=== PATIENT | female | born 1955 | race Caucasian/White ===

== ENCOUNTER → 2017-03-05 | Outpatient (CLI) | payer OTHER ==
[~2017-03-05] MED LIST: ALPR-411 PO; ASPI81TA28 PO; ATR25 PO; BUPRTAB PO; DIPHTAB PO; ESCI1TAB10 PO; INSDGI SC; KLN5 PO; LEVO112T4 PO; LISI-461 PO; LXP20 PO; METO-157 PO; NICO14DI5 TD; NVLG SC; NVLGI SC; OXYC-57 PO; PRVC/20 PO; PXL20 PO; SIMV-151 OG; WLLSR/200 PO; WLLXL300 PO
[2017-03-05 13:50] LABS: ALT/SGPT 25 U/L (12-78); AMYLASE 27 U/L (25-115); AST/SGOT 14 U/L (15-37); BLOOD UREA NITROGEN 11 mg/dl (7-18); BUN/CREATININE RATIO 11.2 (10-20); CALCIUM 9.4 mg/dl (8.5-10.1); CARBON DIOXIDE 28 mmol/L (21-32); CHLORIDE 103 mmol/L (98-107); CREATININE 0.94 mg/dl (0.60-1.20); GLUCOSE 271 mg/dl (70-99); POTASSIUM 4.4 mmol/L (3.5-5.1); SODIUM 135 mmol/L (136-145)
[2017-03-05 13:54] LABS: ALB/GLOB RATIO 1.1 (0.9-2); ALKALINE PHOSPHATASE 85 U/L (45-117); C-REACTIVE PROTEIN 0.74 mg/dl (0-0.29)
[2017-03-10 01:27] LABS: IGA SERUM 87 mg/dL (81-463); TIS TRANS IGA 1 U/mL (<4)
== END | disposition home or self-care (01) ==
LOC: C.LAB 12:47
PROVIDERS: ATTEND Physician Assistant
DX: R10.9 Unspecified abdominal pain (principal)

== ENCOUNTER → 2017-03-11 | Outpatient (CLI) | payer OTHER ==
[~2017-03-11] MED LIST changes: +OPTIRAY 320 IV PRN
--- NOTE | 2017-03-12 06:45 | DIAGNOSTIC IMAGING REPORT ---
CT ABD/PELVIS IV AND ORAL CONT CLINICAL HISTORY: R10.9 Abdominal [id number] COMPARISON STUDY: 02/01/2015 TECHNIQUE: Following the IV administration of 94 mL of Optiray-320, CT scan of the abdomen and pelvis was performed from the lung bases to the proximal femurs. Images are reviewed in the axial, sagittal, and coronal planes. IV contrast was administered without complication. A dose lowering technique was utilized adhering to the principles of ALARA. CT DOSE: 285.68 mGy.cm FINDINGS: Lower chest: The heart is normal in size and configuration, without pericardial effusion. The lung bases and pleural spaces are clear. Liver: The contrast-enhanced liver is normal in size, contour, and attenuation. There is no intrahepatic biliary ductal dilatation. The hepatic veins and portal veins are patent. Gallbladder: Unremarkable. Spleen: Normal in size and attenuation. Pancreas: Unremarkable. Adrenal glands: Unremarkable. Kidneys: There is symmetric renal cortical enhancement. The kidneys are normal in size without hydronephrosis. Bowel: There is colonic diverticulosis. There are no acute peridiverticular inflammatory changes. The appendix is normal. Peritoneum: There is no intraperitoneal free air or abdominal ascites. Vasculature: The abdominal aorta is normal in course and caliber. Adenopathy: None. Pelvic viscera: The bladder, and pelvic viscera are unremarkable. Skeletal structures: No destructive osseous lesions are seen. IMPRESSION: 1. No acute intra-abdominal or pelvic findings 2. No evidence of bowel obstruction. No evidence of free air 3. Normal appendix 4. Diverticulosis. No evidence of acute diverticulitis. Electronically signed by: Donnie Hernandez M.D. 03/11/2017 12:53 PM Dictated Date/Time: 03/11/2017 12:51 PM
== END | disposition home or self-care (01) ==
LOC: C.CTS 11:03
PROVIDERS: ATTEND Physician Assistant
DX: R10.9 Unspecified abdominal pain (principal); K57.90 Diverticulosis of intestine, part unspecified, without perforation or abscess without bleeding

== ENCOUNTER → 2017-03-17 | Outpatient (CLI) | payer OTHER ==
[~2017-03-17] MED LIST changes: -OPTIRAY 320 IV PRN
--- NOTE | 2017-03-17 14:00 | DIAGNOSTIC IMAGING REPORT ---
GASTRIC EMPTYING HISTORY: Pain R10.9 Abdominal painR63.4 Abnormal weight [id number] COMPARISON: None. TECHNIQUE: Following the oral administration of 1.06 mCi of technetium 99m sulfur colloid in egg sandwich and 8 ounces of water, static abdominal images are obtained anteriorly and posteriorly at 0 minutes, 1 hour, 2 hour, and 4 hour time intervals. Gastric emptying was calculated utilizing the geometric mean method. FINDINGS: There is approximately 41 % activity remaining at the 1 hour time interval (normal is less than 90%), 7 % remaining at the 2 hour time interval (normal is less than 60%), and 0 % activity remaining at the 4 hour time interval (normal is less than 10%). IMPRESSION: No evidence for delayed gastric emptying. The above report was generated using voice recognition software. It may contain grammatical, syntax or spelling errors. Electronically signed by: Christiano Granados M.D. 03/17/2017 1:59 PM Dictated Date/Time: 03/17/2017 1:56 PM
== END | disposition home or self-care (01) ==
LOC: C.NUCL 08:49
PROVIDERS: ATTEND Physician Assistant
DX: R63.4 Abnormal weight loss (principal); R10.9 Unspecified abdominal pain

== ENCOUNTER 2017-04-30 20:36 | Inpatient (IN) | payer OTHER ==
[~2017-04-30] VITALS: Ht 167.6 cm; Wt 64.5 kg
[~2017-04-30 20:36] MED LIST changes: -ALPR-411 PO; -ASPI81TA28 PO; -ATR25 PO; -KLN5 PO; -LXP20 PO; -NICO14DI5 TD; -NVLG SC; -PRVC/20 PO; -PXL20 PO; -WLLSR/200 PO; -WLLXL300 PO
--- NOTE | 2017-04-30 21:01 | EMERGENCY ROOM VISIT NOTE ---
History Report prepared by Patrick: Malena Christianson Under the Supervision of: Dr. Claudio Mueller M.D. First contact with patient: 20:48 Chief Complaint: MENTAL HEALTH EVALUATION Stated Complaint: DEPRESSION AND DIARRHEA History of Present Illness The patient is a 61 year old female who presents to the Emergency Room with complaints of a mental health evaluation today. The patient reports that she has had depression over the last couple of months, as well as diarrhea over the last 2 weeks. She reports that she has had a recent change in medication. The patient states that she is unsure if she has suicidal thoughts, but states that she is sick of feeling depressed. Per her daughter, 2 years ago the patient had a gun loaded. The patient reports that she has had depression for years, but that it worsened in January. The patient states that her depression worsens when she is unable to sleep correctly. She also states that she has had recent weight loss. The patient states that she is now staying with her daughter. She also reports that she has diabetes and is a smoker. The patient denies fevers, chills, and vomiting. Source of History: patient Onset: today Position: other (global) Quality: other (mental health evaluation) Associated Symptoms: + diarrhea, No fevers, No chills, No vomiting Review of Systems See HPI for pertinent positives and negatives. A total of ten systems were reviewed and were otherwise negative. Past Medical & Surgical Medical Problems: (1) Diabetes mellitus (2) HTN (hypertension) Surgical Problems: (1) History of (2) Hx of tonsillectomy Family History Cancer Diabetes mellitus Heart disease Hypertension Social History Smoking Status: Current Every Day Smoker Alcohol Use: occasionally Marital Status: single Housing Status: lives alone Occupation Status: unemployed Current/Historical Medications Scheduled Alprazolam (Alprazolam), 1 TAB PO DAILY Aspirin (Aspirin Ec), 81 MG PO DAILY Bupropion Hcl (Wellbutrin Sr), 1 TAB PO DAILY Insulin Aspart (Novolog), 1 DOSE SC UD Insulin Glargine (Lantus), 15-18 UNITS SC HS Levothyroxine Sodium (Levothyroxine Sodium), 112 MCG PO DAILY Lisinopril (Lisinopril), 10 MG PO DAILY Paroxetine (Paroxetine HCl), 1 TAB PO DAILY Pravastatin Sod (Pravastatin Sodium), 1 TAB PO DAILY Allergies Coded Allergies: No Known Allergies (Unverified , 04/30/17) Physical Exam Vital Signs Date Time Temp Pulse Resp B/P (MAP) Pulse Ox O2 Delivery O2 Flow Rate FiO2 04/30/17 23:05 76 20 137/73 92 Room Air 04/30/17 20:41 36.9 81 16 111/73 93 Room Air Physical Exam GENERAL: Awake, alert, no acute distress. Flat affect. HENT: Normocephalic, atraumatic. Oropharynx unremarkable. Dry mucous membranes. EYES: Normal conjunctiva. Sclera non-icteric. NECK: Supple. No nuchal rigidity. FROM. No JVD. RESPIRATORY: Clear to auscultation. CARDIAC: Regular rate, normal rhythm. Extremities warm and well perfused. Pulses equal. ABDOMEN: Soft, non-distended. Generalized abdominal discomfort but no exquisite tenderness to palpation. No rebound or guarding. No masses. RECTAL: Deferred. MUSCULOSKELETAL: Chest examination reveals no tenderness. The back is symmetrical on inspection without obvious abnormality. There is no CVA tenderness to palpation. No joint edema. LOWER EXTREMITIES: Calves are equal size bilaterally and non-tender. No edema. No discoloration. NEURO: Normal sensorium. No sensory or motor deficits noted. SKIN: No rash or jaundice noted. Medical Decision & Procedures Laboratory Results 04/30/17 21:21 Red Blood Count 4.35, Mean Corpuscular Volume 98.2, Mean Corpuscular Hemoglobin 32.9, Mean Corpuscular Hemoglobin Concent 33.5, Mean Platelet Volume 10.6, Neutrophils (%) (Auto) 76.5, Lymphocytes (%) (Auto) 17.2, Monocytes (%) (Auto) 4.8, Eosinophils (%) (Auto) 1.2, Basophils (%) (Auto) 0.1, Neutrophils # (Auto) 6.52, Lymphocytes # (Auto) 1.47, Monocytes # (Auto) 0.41, Eosinophils # (Auto) 0.10, Basophils # (Auto) 0.01 04/30/17 21:21 Test 04/30/17 21:21 04/30/17 23:10 White Blood Count 8.53 K/uL (4.8-10.8) Red Blood Count 4.35 M/uL (4.2-5.4) Hemoglobin 14.3 g/dL (12.0-16.0) Hematocrit 42.7 % (37-47) Mean Corpuscular Volume 98.2 fL (80-100) Mean Corpuscular Hemoglobin 32.9 pg (25-34) Mean Corpuscular Hemoglobin Concent 33.5 g/dl (32-36) Platelet Count 307 K/uL (130-400) Mean Platelet Volume 10.6 fL (7.4-10.4) Neutrophils (%) (Auto) 76.5 % Lymphocytes (%) (Auto) 17.2 % Monocytes (%) (Auto) 4.8 % Eosinophils (%) (Auto) 1.2 % Basophils (%) (Auto) 0.1 % Neutrophils # (Auto) 6.52 K/uL (1.4-6.5) Lymphocytes # (Auto) 1.47 K/uL (1.2-3.4) Monocytes # (Auto) 0.41 K/uL (0.11-0.59) Eosinophils # (Auto) 0.10 K/uL (0-0.5) Basophils # (Auto) 0.01 K/uL (0-0.2) RDW Standard Deviation 50.3 fL (36.4-46.3) RDW Coefficient of Variation 14.0 % (11.5-14.5) Immature Granulocyte % (Auto) 0.2 % Immature Granulocyte # (Auto) 0.02 K/uL (0.00-0.02) Anion Gap 9.0 mmol/L (3-11) Est Creatinine Clear Calc Drug Dose 63.5 ml/min Estimated GFR () 83.3 Estimated GFR (Non- 71.9 BUN/Creatinine Ratio 5.9 (10-20) Calcium Level 9.0 mg/dl (8.5-10.1) Total Bilirubin 0.2 mg/dl (0.2-1) Direct Bilirubin < 0.1 mg/dl (0-0.2) Aspartate Amino Transf (AST/SGOT) 14 U/L (15-37) Alanine Aminotransferase (ALT/SGPT) 18 U/L (12-78) Alkaline Phosphatase 85 U/L (45-117) Total Protein 7.3 gm/dl (6.4-8.2) Albumin 3.8 gm/dl (3.4-5.0) Globulin 3.5 gm/dl (2.5-4.0) Albumin/Globulin Ratio 1.1 (0.9-2) Thyroid Stimulating Hormone (TSH) 4.850 uIu/ml (0.300-4.500) Ethyl Alcohol mg/dL 24.0 mg/dl (0-3) Urine Color YELLOW Urine Appearance CLEAR (CLEAR) Urine pH 5.0 (4.5-7.5) Urine Specific [place] 1.017 (1.000-1.030) Urine Protein NEG (NEG) Urine Glucose (UA) TRACE (NEG) Urine Ketones NEG (NEG) Urine Occult Blood NEG (NEG) Urine Nitrite NEG (NEG) Urine Bilirubin NEG (NEG) Urine Urobilinogen NEG (NEG) Urine Leukocyte Esterase TRACE (NEG) Urine WBC (Auto) 1-5 /hpf (0-5) Urine RBC (Auto) 0-4 /hpf (0-4) Urine Hyaline Casts (Auto) 1-5 /lpf (0-5) Urine Epithelial Cells (Auto) >30 /lpf (0-5) Urine Bacteria (Auto) NEG (NEG) Urine Opiates Screen NEG (NEG) Urine Methadone, Qualitative NEG (NEG) Urine Barbiturates NEG (NEG) Urine Phencyclidine (PCP) Level NEG (NEG) Ur Amphetamine/Methamphetamine NEG (NEG) MDMA (Ecstasy) Screen POS (NEG) Urine Benzodiazepines Screen NEG (NEG) Urine Cocaine Metabolite NEG (NEG) Urine Marijuana (THC) NEG (NEG) Laboratory results reviewed by mo ED Course 2049: The patient was evaluated in room A8. A complete history and physical exam was performed. 2114: Ordered Famotidine 20 mg PO. 49: The patient is awaiting transfer to [facility]. Medical Decision I reviewed the patient's past medical history, medications, and the nursing notes as described above. Differentials include: depression, anxiety, dehydration, electrolyte abnormality, gastroenteritis, and gastritis. The patient is a 61-year-old woman with a past medical history of depression and prior admission for suicidality per history of present illness. On arrival the patient is in no acute distress, afebrile with stable vital signs. Examination does have a flat affect, and admits to making suicidal comments but says she does not need them. Over she minimizes episode 2 years ago when she was admitted for suicidality after being found to have a loaded gun next to her. She has been staying with her daughter locally who has guns in the home but they are locked away. Daughter who accompanies her mother is concerned because of worsening suicidal comments and passive suicidal ideation "wishing she would had a heart attack and ". Labs unremarkable. Clinically cleared. Psych liaison evaluation also concern for the patient's behavior. I discussed with the patient my concern for her safety in the setting of her worsening and prolonged depression urged her to be agreeable for admission for psychiatric management. Patient was overall resistant but eventually agreeable if she were to be admitted here specifying that she would refuse to be sent anywhere else. I told the patient that I was concerned for her safety and if necessary I would place her under a 302 over given that there is bed availability here patient is agreeable for admission. Patient accepted to [address] [place] [address] for further management. Medication Reconcilliation Current Medication List: was personally reviewed by me Blood Pressure Screening Patient's blood pressure: Normal blood pressure Impression Primary Impression: Suicidal ideation Scribe Attestation The scribe's documentation has been prepared under my direction and personally reviewed by me in its entirety. I confirm that the note above accurately reflects all work, treatment, procedures, and medical decision making performed by me. Departure Information Dispostion Transfer Acute Care Facility Referrals No Doctor, Assigned (PCP) Patient Instructions My [facility]
[2017-04-30] MEDS ORDERED: FAMOTIDINE 20 MG TAB PO ONE (21:15)
[2017-04-30 21:39] LABS: BASO % 0.1 %; BASO ABS # 0.01 K/uL (0-0.2); EOS % 1.2 %; HEMATOCRIT 42.7 % (37-47); IG% 0.2 %; LYMPH % 17.2 %; LYMPH ABS # 1.47 K/uL (1.2-3.4); MEAN CELL VOLUME 98.2 fL (80-100); MEAN CORPUSCULAR HEMOGLOBIN 32.9 pg (25-34); MEAN CORPUSCULAR HGB CONC 33.5 g/dl (32-36); MEAN PLATELET VOLUME 10.6 fL (7.4-10.4); MONO % 4.8 %; NEUT % 76.5 %; PLATELET COUNT 307 K/uL (130-400); RED BLOOD COUNT 4.35 M/uL (4.2-5.4); WHITE BLOOD COUNT 8.53 K/uL (4.8-10.8)
[2017-04-30 21:40] LABS: COMPLETE YES
[2017-04-30 21:58] LABS: ALT/SGPT 18 U/L (12-78); BLOOD UREA NITROGEN 5 mg/dl (7-18); BUN/CREATININE RATIO 5.9 (10-20); CARBON DIOXIDE 22 mmol/L (21-32); CHLORIDE 107 mmol/L (98-107); CREATININE 0.87 mg/dl (0.60-1.20); GLUCOSE 167 mg/dl (70-99); POTASSIUM 4.3 mmol/L (3.5-5.1); SODIUM 138 mmol/L (136-145)
[2017-04-30 22:08] LABS: ALB/GLOB RATIO 1.1 (0.9-2); ALKALINE PHOSPHATASE 85 U/L (45-117); AST/SGOT 14 U/L (15-37)
[2017-04-30] MEDS ORDERED: INSDGI SC (22:36)
[2017-04-30] MEDS ORDERED: ALPR-411 PO (22:36)
[2017-04-30] MEDS ORDERED: WLLSR/200 PO (22:36)
[2017-04-30] MEDS ORDERED: PXL20 PO (22:36)
[2017-04-30] MEDS ORDERED: PRVC/20 PO (22:36)
[2017-04-30] MEDS ORDERED: NVLG SC (22:36)
[2017-04-30] MEDS ORDERED: ASPI81TA28 PO (22:36)
[2017-04-30 23:26] LABS: URINE APPEARANCE CLEAR (CLEAR); URINE BILIRUBIN NEG (NEG); URINE COLOR YELLOW; URINE EPITHELIAL CELL AUTO >30 /lpf (0-5); URINE NITRITE NEG (NEG); URINE SPECIFIC GRAVITY 1.017 (1.000-1.030); UROBILINOGEN NEG (NEG)
[2017-04-30 23:27] LABS: MANUAL MICROSCOPIC REQUIRED? NO; REVIEW REQ? NO
[2017-04-30 23:54] LABS: BENZODIAZEPINE, URINE NEG (NEG); COCAINE,URINE NEG (NEG); PHENCYCLIDINE, URINE NEG (NEG)
[2017-05-01] MEDS ORDERED: NURSING VERBAL MED ORDER ONE ×2 (01:00→01:30)
[2017-05-01 01:03] VITALS: O2SAT 94
[2017-05-01] MEDS ORDERED: DEXTROSE 50% 50 ML SYR IV PRN (01:30)
[2017-05-01] MEDS ORDERED: MAGNESIUM HYDROXIDE SUSP 30 ML UDC PO PRN (01:30)
[2017-05-01] MEDS ORDERED: BISMUTH SUBSALICYLATE PER ML OMNICELL CHARGE PO PRN (01:30)
[2017-05-01] MEDS ORDERED: GLUCOSE 10 TABS/TUBE PO PRN (01:30)
[2017-05-01] MEDS ORDERED: SODIUM CHLORIDE 0.65% NA SOLN 45 ML (OCEAN) PRN (01:30)
[2017-05-01] MEDS ORDERED: GLUCOSE 40% GEL 15 GM TUBE PO PRN (01:30)
[2017-05-01] MEDS ORDERED: GLUCAGON FOR INJ 1 MG VIAL SQ PRN (01:30)
[2017-05-01] MEDS ORDERED: ALUMINUM/MAGNESIUM SUSP 30 ML UDC PO PRN (01:30)
[2017-05-01] MEDS: hydrOXYzine HCL 25 MG TAB PO PRN (01:43)
[2017-05-01] MEDS: INSULIN GLARGINE SOLOSTAR 100 UNITS/ML 3 ML PEN SC SCH ×2 (01:59→20:48)
[2017-05-01 03:41] VITALS: BP 128/84; PULSE 70; TEMP 36.9; BMI 23.0
[2017-05-01 06:54] VITALS: BP 128/84; PULSE 70; TEMP 36.9
[2017-05-01] MEDS: INSULIN ASPART 100 UNITS/ML 3 ML PEN SC SCH ×4 (08:00→20:46)
[2017-05-01] MEDS: LEVOTHYROXINE 112 MCG TAB PO SCH (08:32)
[2017-05-01] MEDS ORDERED: ESCITALOPRAM OXALATE 10 MG TAB PO ONE (09:25)
[2017-05-01] MEDS: NICOTINE 14 MG/24 HR TDSY TD ONE ×2 (09:25→09:58)
[2017-05-01] MEDS ORDERED: LISINOPRIL 10 MG TAB PO ONE (09:25)
[2017-05-01] MEDS ORDERED: ASPIRIN 81 MG ECTAB PO ONE (09:25)
[2017-05-01] MEDS ORDERED: PRAVASTATIN SOD 20 MG TAB PO ONE ×2 (09:25→10:28)
[2017-05-01] MEDS ORDERED: BuPROPion SR 100 MG TABCR PO ONE (09:25)
[2017-05-01] MEDS ORDERED: NICOTINE POLACRILEX 2 MG GUM MT PRN (09:30)
[2017-05-01] MEDS ORDERED: PHARMACY GLYCEMIC MGMT CONSULT SCH (09:41)
--- NOTE | 2017-05-01 09:54 | Psychiatric History & Physical ---
History Date of Service May 01, 2017. (Luzma Bowen,CARLOS) Identifying Data Lana Padilla is a 61-year-old female from [facility] who was brought to the emergency department by her daughter due to acute depression and suicidality. The patient is admitted on a voluntary basis. Information is gathered from the patient and considered to be reliable. (Luzma Bowen,MORTGAGE LOAN ASSISTANT) Chief Complaint "Depression mostly.". (Luzma Bowen,CARLOS) History of Present Illness The patient is a 61-year-old woman with a history of depression dating back to the year 1999. She is currently in treatment with Dr. Ang at [facility] and has a therapist, Terry. Her depression initially began during a time when she was going through menopause and her was medically ill. She experienced a worsening of her depression about 2 years ago and was hospitalized at the [facility]. At that time she denies any acute stressor that had similar symptoms including anxiety. She has been on Wellbutrin SR 200 mg daily for years and recently her psychiatrist added Paxil 20 mg daily about 3 weeks ago. Since then she has been experiencing nausea, vomiting and daily liquid diarrhea. She has been staying with her daughter for the last 2 months because of her depression and in the last few days had started talking about wanting to return to her home but at the same time afraid to be alone and making statements that she was "tired of being like this". Daughter became concerned that she was suicidal and in view of the fact that she had previously been found with a loaded gun during her depression, they insisted she come to the emergency department for evaluation. The patient was initially resistant to coming into the hospital but with her family's encouragement was willing to sign in on a voluntary basis. Today she continues to describe herself as feeling severely depressed. She adamantly denies that she is suicidal saying she would never do that and contends that when the gun was found previously that she had no intentions of using it. She reports chronically disturbed sleep over the last 2 months with both difficulty falling asleep as well as staying asleep, getting only 4-5 hours per night. She wakes and has difficulty falling back to sleep. She has had anxiety over the last 2 months and has periods where she experiences palpitations and nausea. She denies that she has ever had auditory or visual hallucinations. She finds that she is isolating more recently and has lost interest in previously satisfying activities. She denies any history of self- injurious behaviors or any eating disorder behaviors. She denies any discrete episodes of euphoric mood, sleeplessness or pleasure seeking behaviors that would be congruent with a bipolar disorder. (Luzma Bowen,CARLOS) Past Psychiatric History Current OP Treatment: psychiatrist, therapist Prior OP Treatment: psychiatrist Prior Psych Hospitalizations: [place] Access to a Gun: Yes (at daughters but locked) Suicide Attempts: No Past Medication Trials Ativan made her too sleepy (Luzma Bowen,CARLOS) Past Medical/Surgical History History of Concussion/Seizure: No (1) Diarrhea (2) Diabetes mellitus (3) HTN (hypertension) (Luzma Bowen NP) Allergies Allergies: Coded Allergies: No Known Allergies (Unverified , 04/30/17) Home Medications Scheduled Alprazolam (Alprazolam), 1 TAB PO DAILY Aspirin (Aspirin Ec), 81 MG PO DAILY Bupropion Hcl (Wellbutrin Sr), 1 TAB PO DAILY Insulin Aspart (Novolog), 1 DOSE SC UD Insulin Glargine (Lantus), 15-18 UNITS SC HS Levothyroxine Sodium (Levothyroxine Sodium), 112 MCG PO DAILY Lisinopril (Lisinopril), 10 MG PO DAILY Paroxetine (Paroxetine HCl), 1 TAB PO DAILY Pravastatin Sod (Pravastatin Sodium), 1 TAB PO DAILY Family History Cancer Diabetes mellitus Heart disease Hypertension History of Suicide: Yes (Sr.) History of Substance Abuse: Yes (father with alcohol problems) Psychiatric History: Yes (Sr. with depression, mother with unknown mental health problems) (Luzma Bowen,CARLOS) Cancer Diabetes mellitus Heart disease Hypertension (Lindsay Smith M.D.) Alcohol Use Alcohol Use In Past 12 Months: Yes ("Stealing alcohol past few days to cope.") AUDIT Total Score: 2 Patient denies ever having had any legal consequences because of alcohol. She admits that she has been drinking more frequently during the last 2 depressed months as it helps her anxiety (Luzma Bowen,CARLOS) Smoking Use Smoking Status: Current Every Day Smoker (Luzma Bowen,CARLOS) Substance History Denies the use of illicit substances ever (Luzma Bowen,MORTGAGE LOAN ASSISTANT) Personal History Lives in: [facility]. Childhood: Raised by father and stepmother, both of whom are . Education: graduated from high school Relationship History: ( 9 years ago they had been 34 years) Children: 1 daughter Legal History: none Psychological Trauma History: Denies Hx Traumatic Event (Luzma Bowen,MORTGAGE LOAN ASSISTANT) Review of Systems Constitutional: denies no symptoms reported, denies see HPI, denies chills, denies diaphoresis, denies fever, denies malaise, denies weakness, denies other Eyes: denies: no symptoms, as stated in HPI, eye pain, tearing, itching, redness, discharge, double vision, visual changes, blurred vision, photophobia, other ENT: denies: no symptoms reported, see HPI, ear pain, ear discharge, loss of hearing, tinnitus, nasal pain, nasal congestion, rhinorrhea, epistaxis, sore throat, stidor, throat swelling, mouth pain, mouth swelling, dental pain, gum swelling, other Cardiovascular: reports: palpitations (with anxiety) Respiratory: reports: cough (smoker's cough) Gastrointestinal: diarrhea (daily watery diarrhea), nausea Genitourinary - Female: reports: other (difficulty initiating stream) Musculoskeletal: denies no symptoms reported, denies see HPI, denies back pain , denies gout, denies joint pain, denies joint swelling, denies muscle pain, denies muscle stiffness, denies neck pain, denies other Integumentary: denies no symptoms reported, denies see HPI, denies change in color, denies change in hair/nails, denies dryness, denies lesions, denies lumps , denies rash, denies other Neurologic: denies: no symptoms, see HPI, headache, numbness, paresthesias, pre -existing deficit, seizure, tingling, tremors, general weakness, tics, focal weakness, vertigo, lethargy, memory loss, dizziness, other Endocrine: denies: no symptoms, as stated in HPI, cold intolerance, heat intolerance, hair changes, goiter, polydipsia, polyuria, skin changes, other Hematologic / Lymphatic: denies: no symptoms, as stated in HPI, abnormal clotting, adenopathy, anemia, easy bleeding, easy bruising, gums bleeding, petechiae, other (Luzma Bowen,MORTGAGE LOAN ASSISTANT) Examination Physical Examination Exam performed by Dr. graham in the emergency department yesterday has been reviewed and accepted as medical clearance for our unit (Luzma Bowen,MORTGAGE LOAN ASSISTANT) Vital Signs Vital Signs Past 12 Hours Date Time Temp Pulse Resp B/P (MAP) Pulse Ox O2 Delivery O2 Flow Rate FiO2 05/01/17 06:54 36.9 70 20 128/84 05/01/17 03:41 36.9 70 20 128/84 05/01/17 01:03 76 20 136/73 94 Room Air 04/30/17 23:05 76 20 137/73 92 Room Air (Luzma Bowen,MORTGAGE LOAN ASSISTANT) Laboratory Results Last 24 Hours Test 04/30/17 21:21 04/30/17 23:10 05/01/17 00:46 05/01/17 08:10 White Blood Count 8.53 K/uL Red Blood Count 4.35 M/uL Hemoglobin 14.3 g/dL Hematocrit 42.7 % Mean Corpuscular Volume 98.2 fL Mean Corpuscular Hemoglobin 32.9 pg Mean Corpuscular Hemoglobin Concent 33.5 g/dl Platelet Count 307 K/uL Mean Platelet Volume 10.6 fL Neutrophils (%) (Auto) 76.5 % Lymphocytes (%) (Auto) 17.2 % Monocytes (%) (Auto) 4.8 % Eosinophils (%) (Auto) 1.2 % Basophils (%) (Auto) 0.1 % Neutrophils # (Auto) 6.52 K/uL Lymphocytes # (Auto) 1.47 K/uL Monocytes # (Auto) 0.41 K/uL Eosinophils # (Auto) 0.10 K/uL Basophils # (Auto) 0.01 K/uL RDW Standard Deviation 50.3 fL RDW Coefficient of Variation 14.0 % Immature Granulocyte % (Auto) 0.2 % Immature Granulocyte # (Auto) 0.02 K/uL Sodium Level 138 mmol/L Potassium Level 4.3 mmol/L Chloride Level 107 mmol/L Carbon Dioxide Level 22 mmol/L Anion Gap 9.0 mmol/L Blood Urea Nitrogen 5 mg/dl Creatinine 0.87 mg/dl Est Creatinine Clear Calc Drug Dose 63.5 ml/min Estimated GFR () 83.3 Estimated GFR (Non- 71.9 BUN/Creatinine Ratio 5.9 Random Glucose 167 mg/dl Calcium Level 9.0 mg/dl Total Bilirubin 0.2 mg/dl Direct Bilirubin < 0.1 mg/dl Aspartate Amino Transf (AST/SGOT) 14 U/L Alanine Aminotransferase (ALT/SGPT) 18 U/L Alkaline Phosphatase 85 U/L Total Protein 7.3 gm/dl Albumin 3.8 gm/dl Globulin 3.5 gm/dl Albumin/Globulin Ratio 1.1 Thyroid Stimulating Hormone (TSH) 4.850 uIu/ml Ethyl Alcohol mg/dL 24.0 mg/dl Urine Color YELLOW Urine Appearance CLEAR Urine pH 5.0 Urine Specific [place] 1.017 Urine Protein NEG Urine Glucose (UA) TRACE Urine Ketones NEG Urine Occult Blood NEG Urine Nitrite NEG Urine Bilirubin NEG Urine Urobilinogen NEG Urine Leukocyte Esterase TRACE Urine WBC (Auto) 1-5 /hpf Urine RBC (Auto) 0-4 /hpf Urine Hyaline Casts (Auto) 1-5 /lpf Urine Epithelial Cells (Auto) >30 /lpf Urine Bacteria (Auto) NEG Urine Opiates Screen NEG Urine Methadone, Qualitative NEG Urine Barbiturates NEG Urine Phencyclidine (PCP) Level NEG Ur Amphetamine/Methamphetamine NEG MDMA (Ecstasy) Screen POS Urine Benzodiazepines Screen NEG Urine Cocaine Metabolite NEG Urine Marijuana (THC) NEG Bedside Glucose 259 mg/dl 57 mg/dl Test 05/01/17 08:27 Bedside Glucose 83 mg/dl (Luzma Bowen NP) Mental Examination During interview pt is: alert and oriented, cooperative Appearance: appropriately dressed, appropriately groomed Eye contact is: good Motor behavior is: steady gait & station, no abnormal motor movements Speech: normal in rate, rhythm & volume Affect: mood congruent, depressed, flat Mood is: depressed, anxious Thought process: goal directed Thought content: reality based without delusions Suicidal thought are: present (passive) Homicidal thoughts are: denied Hallucinations: denies auditory, denies visual Cognition: memory grossly intact, attention grossly intact, language grossly intact Intelligence estimated to be: average Insight: impaired Judgement: impaired (Luzma Bowen NP) Impression / Recommendations Impression 61-year-old woman with depression and anxiety, admitted voluntarily with suicidality. She has been experiencing nausea vomiting and diarrhea since starting on Paxil 3 weeks ago and so we will discontinue this in favor of another trial of an SSRI. She has been on only Wellbutrin in the past. We will start Lexapro 5 mg daily increasing to 10 mg tomorrow. We will continue Wellbutrin 200 mg daily. We will also send her liquid stools for culture and C. difficile to rule out any infection but I suspect that her GI condition is related to the Paxil which she started at the same time. She has been using Xanax as an outpatient but we will convert this to Klonopin for its longer half life. Hopefully we will be able to discontinue this over time if she has a good response to an SSRI. We will provide nicotinic replacements, we will involve her family in her treatment at her request. We will coordinate with her outpatient providers. At this time however the patient requires inpatient mental health treatment due to the severity of her condition, and the risk for self-harm if discharged. (Luzma Bowen,CARLOS) Inventory Assets Strengths: Support of family, willingness to engage in treatment Needs: 2 abstain from alcohol at this time (Luzma Bowen NP) Risk Factors Assessment : Yes /single/: Yes Higher / Fall in social status: No Access to guns: Yes Health problems: Yes Mental Health Diagnoses: Yes Substance use disorders: No Previous psychiatric stay: Yes Smoker: Yes (Luzma Bowen NP) Protective Factors Assessment : No Responsible for young children: No Employed: No Stable relationships: Yes Supportive family: Yes Good rapport with provider: Yes (Luzma Bowen NP) Recommendations (1) Major depressive disorder, recurrent severe without psychotic features 05/01 - DC Paxil due to GI complaints -Start Lexapro 5 mg daily increasing to 10 mg tomorrow - Every 15 minute checks for safety - Obtain outpatient records from an coordinate care with current providers -Encourage participation in group and individual counseling- - Assist the patient to explore healthy coping strategies - Family meeting (2) Tobacco use disorder 05/01 -Encourage the patient to cut down or consider quitting - Will provide nicotinic patch 14 mg daily as well as Nicorette gum one every 1 hour when necessary neck team withdrawal (3) Diarrhea 05/01 -Stool for cultures and C. difficile - Suspect this may be a side effect to the Paxil. See medication plan above (4) Diabetes mellitus 05/01 - Continue patient's home regimen of NovoLog and Lantus insulins - BS cheese before meals and at bedtime - Will request a consult with the diabetic pharmacist for management (5) HTN (hypertension) 05/01 - Continue home medications - Monitor BP's - Encourage exercise- Has been reviewed with Dr. 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
[2017-05-01] MEDS: CLONAZEPAM 0.5 MG TAB PO PRN (10:06)
--- NOTE | 2017-05-01 10:27 | Psychiatric History & Physical ---
Psychiatric History & Physical Date of Service: May 01, 2017. Date of Service May 01, 2017. Identifying Data Lana Padilla is a 61-year-old female from [facility], who was brought to the emergency department by her daughter due to acute depression and suicidality. The patient is admitted on a voluntary basis. Information is gathered from the patient and considered to be reliable. Chief Complaint "Depression mostly." History of Present Illness The patient is a 61-year-old woman with a history of depression dating back to the year 1999. She is currently in treatment with Dr. Ang at [facility] and has a therapist, Terry. Her depression initially began during a time when she was going through menopause and her was medically ill. She experienced a worsening of her depression about 2 years ago and was hospitalized at the [facility]. She denies any acute stressor at that time but states she had similar symptoms, including anxiety. She has been on Wellbutrin SR 200 mg daily for years and recently her psychiatrist added Paxil 20 mg daily about 3 weeks ago. Since then she has been experiencing nausea, vomiting and daily liquid diarrhea. She has been staying with her daughter for the last 2 months because of her depression and in the last few days. She started talking about wanting to return to her home but at the same time was afraid to be alone and apparently made statements that she was "tired of being like this". Her daughter became concerned that she was suicidal, and given that she had been found with a loaded gun during her previous depression, they insisted she come to the emergency department for evaluation. The patient was initially resistant to coming into the hospital but with her family's encouragement was willing to sign in on a voluntary basis. Today she continues to describe herself as feeling severely depressed. She adamantly denies that she is suicidal saying she would never do that and contends that when the gun was found previously that she had no intentions of using it. She reports chronically disturbed sleep over the last 2 months with both difficulty falling asleep as well as staying asleep, getting only 4-5 hours per night. She wakes and has difficulty falling back to sleep. She has had anxiety over the last 2 months and has periods where she experiences palpitations and nausea. She denies that she has ever had auditory or visual hallucinations. She finds that she is isolating more recently and has lost interest in previously satisfying activities. She denies any history of self- injurious behaviors or any eating disorder behaviors. She denies any discrete episodes of euphoric mood, sleeplessness or pleasure seeking behaviors that would be congruent with a bipolar disorder. Past Psychiatric History Current OP Treatment: psychiatrist, therapist Prior OP Treatment: psychiatrist Prior Psych Hospitalizations: [place] Access to a Gun: Yes (at daughters but locked) Suicide Attempts: No Past Medication Trials Ativan made her too sleepy Past Medical/Surgical History History of Concussion/Seizure: No (1) Diarrhea (2) Diabetes mellitus (3) HTN (hypertension) Allergies Allergies: Coded Allergies: No Known Allergies (Unverified , 04/30/17) Home Medications Scheduled Alprazolam (Alprazolam), 1 TAB PO DAILY Aspirin (Aspirin Ec), 81 MG PO DAILY Bupropion Hcl (Wellbutrin Sr), 1 TAB PO DAILY Insulin Aspart (Novolog), 1 DOSE SC UD Insulin Glargine (Lantus), 15-18 UNITS SC HS Levothyroxine Sodium (Levothyroxine Sodium), 112 MCG PO DAILY Lisinopril (Lisinopril), 10 MG PO DAILY Paroxetine (Paroxetine HCl), 1 TAB PO DAILY Pravastatin Sod (Pravastatin Sodium), 1 TAB PO DAILY Family History Cancer Diabetes mellitus Heart disease Hypertension History of Suicide: Yes (Sr.) History of Substance Abuse: Yes (father with alcohol problems) Psychiatric History: Yes (Sr. with depression, mother with unknown mental health problems) Alcohol Use Alcohol Use In Past 12 Months: Yes ("Stealing alcohol past few days to cope.") AUDIT Total Score: 2 Patient denies ever having had any legal consequences because of alcohol. She admits that she has been drinking more frequently during the last 2 depressed months as it helps her anxiety Smoking Use Smoking Status: Current Every Day Smoker Substance History Denies the use of illicit substances ever Personal History Lives in: [facility]. Childhood: Raised by father and stepmother, both of whom are . Education: graduated from high school Relationship History: ( 9 years ago they had been 34 years) Children: 1 daughter Legal History: none Psychological Trauma History: Denies Hx Traumatic Event Review of Systems Constitutional: denies no symptoms reported, denies see HPI, denies chills, denies diaphoresis, denies fever, denies malaise, denies weakness, denies other Eyes: denies: no symptoms, as stated in HPI, eye pain, tearing, itching, redness, discharge, double vision, visual changes, blurred vision, photophobia, other ENT: denies: no symptoms reported, see HPI, ear pain, ear discharge, loss of hearing, tinnitus, nasal pain, nasal congestion, rhinorrhea, epistaxis, sore throat, stidor, throat swelling, mouth pain, mouth swelling, dental pain, gum swelling, other Cardiovascular: reports: palpitations (with anxiety) Respiratory: reports: cough (smoker's cough) Gastrointestinal: diarrhea (daily watery diarrhea), nausea Genitourinary - Female: reports: other (difficulty initiating stream) Musculoskeletal: denies no symptoms reported, denies see HPI, denies back pain , denies gout, denies joint pain, denies joint swelling, denies muscle pain, denies muscle stiffness, denies neck pain, denies other Integumentary: denies no symptoms reported, denies see HPI, denies change in color, denies change in hair/nails, denies dryness, denies lesions, denies lumps , denies rash, denies other Neurologic: denies: no symptoms, see HPI, headache, numbness, paresthesias, pre -existing deficit, seizure, tingling, tremors, general weakness, tics, focal weakness, vertigo, lethargy, memory loss, dizziness, other Endocrine: denies: no symptoms, as stated in HPI, cold intolerance, heat intolerance, hair changes, goiter, polydipsia, polyuria, skin changes, other Hematologic / Lymphatic: denies: no symptoms, as stated in HPI, abnormal clotting, adenopathy, anemia, easy bleeding, easy bruising, gums bleeding, petechiae, other Examination Physical Examination Exam performed by Dr. graham in the emergency department yesterday has been reviewed and accepted as medical clearance for our unit Vital Signs Vital Signs Past 12 Hours Date Time Temp Pulse Resp B/P (MAP) Pulse Ox O2 Delivery O2 Flow Rate FiO2 05/01/17 06:54 36.9 70 20 128/84 05/01/17 03:41 36.9 70 20 128/84 05/01/17 01:03 76 20 136/73 94 Room Air 9/29/17 23:05 76 20 137/73 92 Room Air Laboratory Results Last 24 Hours Test 04/30/17 21:21 04/30/17 23:10 05/01/17 00:46 05/01/17 08:10 White Blood Count 8.53 K/uL Red Blood Count 4.35 M/uL Hemoglobin 14.3 g/dL Hematocrit 42.7 % Mean Corpuscular Volume 98.2 fL Mean Corpuscular Hemoglobin 32.9 pg Mean Corpuscular Hemoglobin Concent 33.5 g/dl Platelet Count 307 K/uL Mean Platelet Volume 10.6 fL Neutrophils (%) (Auto) 76.5 % Lymphocytes (%) (Auto) 17.2 % Monocytes (%) (Auto) 4.8 % Eosinophils (%) (Auto) 1.2 % Basophils (%) (Auto) 0.1 % Neutrophils # (Auto) 6.52 K/uL Lymphocytes # (Auto) 1.47 K/uL Monocytes # (Auto) 0.41 K/uL Eosinophils # (Auto) 0.10 K/uL Basophils # (Auto) 0.01 K/uL RDW Standard Deviation 50.3 fL RDW Coefficient of Variation 14.0 % Immature Granulocyte % (Auto) 0.2 % Immature Granulocyte # (Auto) 0.02 K/uL Sodium Level 138 mmol/L Potassium Level 4.3 mmol/L Chloride Level 107 mmol/L Carbon Dioxide Level 22 mmol/L Anion Gap 9.0 mmol/L Blood Urea Nitrogen 5 mg/dl Creatinine 0.87 mg/dl Est Creatinine Clear Calc Drug Dose 63.5 ml/min Estimated GFR () 83.3 Estimated GFR (Non- 71.9 BUN/Creatinine Ratio 5.9 Random Glucose 167 mg/dl Calcium Level 9.0 mg/dl Total Bilirubin 0.2 mg/dl Direct Bilirubin < 0.1 mg/dl Aspartate Amino Transf (AST/SGOT) 14 U/L Alanine Aminotransferase (ALT/SGPT) 18 U/L Alkaline Phosphatase 85 U/L Total Protein 7.3 gm/dl Albumin 3.8 gm/dl Globulin 3.5 gm/dl Albumin/Globulin Ratio 1.1 Thyroid Stimulating Hormone (TSH) 4.850 uIu/ml Ethyl Alcohol mg/dL 24.0 mg/dl Urine Color YELLOW Urine Appearance CLEAR Urine pH 5.0 Urine Specific [place] 1.017 Urine Protein NEG Urine Glucose (UA) TRACE Urine Ketones NEG Urine Occult Blood NEG Urine Nitrite NEG Urine Bilirubin NEG Urine Urobilinogen NEG Urine Leukocyte Esterase TRACE Urine WBC (Auto) 1-5 /hpf Urine RBC (Auto) 0-4 /hpf Urine Hyaline Casts (Auto) 1-5 /lpf Urine Epithelial Cells (Auto) >30 /lpf Urine Bacteria (Auto) NEG Urine Opiates Screen NEG Urine Methadone, Qualitative NEG Urine Barbiturates NEG Urine Phencyclidine (PCP) Level NEG Ur Amphetamine/Methamphetamine NEG MDMA (Ecstasy) Screen POS Urine Benzodiazepines Screen NEG Urine Cocaine Metabolite NEG Urine Marijuana (THC) NEG Bedside Glucose 259 mg/dl 57 mg/dl Test 05/01/17 08:27 Bedside Glucose 83 mg/dl Mental Examination During interview pt is: alert and oriented, cooperative Appearance: appropriately dressed, appropriately groomed Eye contact is: good Motor behavior is: steady gait & station, no abnormal motor movements Speech: normal in rate, rhythm & volume Affect: mood congruent, depressed, flat Mood is: depressed, anxious Thought process: goal directed Thought content: reality based without delusions Suicidal thought are: present (passive) Homicidal thoughts are: denied Hallucinations: denies auditory, denies visual Cognition: memory grossly intact, attention grossly intact, language grossly intact Intelligence estimated to be: average Insight: impaired Judgement: impaired Impression / Recommendations Impression 61-year-old woman with depression and anxiety, admitted voluntarily with suicidality. She has been experiencing nausea vomiting and diarrhea since starting on Paxil 3 weeks ago and so we will discontinue this in favor of another trial of an SSRI. She has been on only Wellbutrin in the past. We will start Lexapro 5 mg daily increasing to 10 mg tomorrow. We will continue Wellbutrin 200 mg daily. We will also send her liquid stools for culture and C. difficile to rule out any infection but I suspect that her GI condition is related to the Paxil which she started at the same time. She has been using Xanax as an outpatient but we will convert this to Klonopin for its longer half life. Hopefully we will be able to discontinue this over time if she has a good response to an SSRI. We will provide nicotinic replacements, we will involve her family in her treatment at her request. We will coordinate with her outpatient providers. At this time however the patient requires inpatient mental health treatment due to the severity of her condition, and the risk for self-harm if discharged. Inventory Assets Strengths: Support of family, willingness to engage in treatment Needs: 2 abstain from alcohol at this time Risk Factors Assessment : Yes /single/: Yes Higher / Fall in social status: No Access to guns: Yes Health problems: Yes Mental Health Diagnoses: Yes Substance use disorders: No Previous psychiatric stay: Yes Smoker: Yes Protective Factors Assessment : No Responsible for young children: No Employed: No Stable relationships: Yes Supportive family: Yes Good rapport with provider: Yes Recommendations (1) Major depressive disorder, recurrent severe without psychotic features 05/01 - DC Paxil due to GI complaints -Start Lexapro 5 mg daily increasing to 10 mg tomorrow - Every 15 minute checks for safety - Obtain outpatient records from an coordinate care with current providers -Encourage participation in group and individual counseling- - Assist the patient to explore healthy coping strategies - Family meeting (2) Tobacco use disorder 05/01 -Encourage the patient to cut down or consider quitting - Will provide nicotinic patch 14 mg daily as well as Nicorette gum one every 1 hour when necessary neck team withdrawal (3) Diarrhea 05/01 -Stool for cultures and C. difficile - Suspect this may be a side effect to the Paxil. 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
--- NOTE | 2017-05-01 13:16 | Pharmacy Progress Note ---
Glycemic Control Intl Consult Date of Service May 01, 2017. Scope Glycemic Pharmacist consulted by Freda ARRIAGA on 05/01/17 for glycemic control and to write orders per [facility] inpatient glycemic control protocol Objective Weight (Kilograms): 64.500 Accuchecks BSG (last 24hrs): Test 04/30/17 21:21 05/01/17 00:46 05/01/17 08:10 05/01/17 08:27 Random Glucose 167 mg/dl (70-99) Bedside Glucose 259 mg/dl (70-90) 57 mg/dl (70-90) 83 mg/dl (70-90) Test 05/01/17 12:12 Bedside Glucose 157 mg/dl (70-90) Laboratory Data (last 24hrs) Test 04/30/17 21:21 Anion Gap 9.0 mmol/L BUN/Creatinine Ratio 5.9 Blood Urea Nitrogen 5 mg/dl Creatinine 0.87 mg/dl Potassium Level 4.3 mmol/L Sodium Level 138 mmol/L White Blood Count 8.53 K/uL Red Blood Count 4.35 M/uL Hemoglobin 14.3 g/dL Hematocrit 42.7 % Mean Corpuscular Volume 98.2 fL Mean Corpuscular Hemoglobin 32.9 pg Mean Corpuscular Hemoglobin Concent 33.5 g/dl Platelet Count 307 K/uL Mean Platelet Volume 10.6 fL Neutrophils (%) (Auto) 76.5 % Lymphocytes (%) (Auto) 17.2 % Monocytes (%) (Auto) 4.8 % Eosinophils (%) (Auto) 1.2 % Basophils (%) (Auto) 0.1 % Neutrophils # (Auto) 6.52 K/uL Lymphocytes # (Auto) 1.47 K/uL Monocytes # (Auto) 0.41 K/uL Eosinophils # (Auto) 0.10 K/uL Basophils # (Auto) 0.01 K/uL Recent Pertinent Medications Outpatient Anti-diabetic Regimen: * Lantus per scale: * 15U FOR BLOOD SUGAR 120-180 * 16U FOR BLOOD SUGAR 181-225 * 17U FOR BLOOD SUGAR 226-280 * 18U FOR BLOOD SUGAR 281 OR GREATER * Novolog per SLIDING SCALE: * 4U FOR BLOOD SUGAR 120-150 * 5U FOR BLOOD SUGAR 151-180 * 6U FOR BLOOD SUGAR 181 OR HIGHER Risk Factors for Insulin Resistance: * Diet: ordered Type 2 DM diet; consuming only small amounts w/ meals per nursing report Assessment & Plan ASSESSMENT: * Type 1 diabetic admitted overnight to mental health unit * Based upon outpatient regimen and prior admission data, it appears that she will require ~30-35 units of insulin per day (while tolerating a diet) * Patient did become hypoglycemic this AM after receiving 15 units of Lantus at ~0200 am; likely her poor PO intake contributed to this low. Will adjust the Lantus dose down slightly in light of dietary habits * She is currently ordered a sliding scale for her Novolog doses and given her change in dietary intake it would be better to count carbs PLAN FOR INPATIENT GLYCEMIC CONTROL: * Decreasing HS Lantus dose to: * 14U FOR BLOOD SUGAR 120-180 * 15U FOR BLOOD SUGAR 181-225 * 16U FOR BLOOD SUGAR 226-280 * 17U FOR BLOOD SUGAR 281 OR GREATER * Novolog SQ ACHS * correction factor 35 mg/dl/unit * carb ratio 1 unit per 10 grams CHO consumed * goal range Low 110 mg/dL - High 140 mg/dL * Please note that the plan above was derived based on current level of insulin resistance and hospital stress. These recommendations are appropriate for inpatient admission only. Plan of care upon discharge will need to be reassessed to avoid potential outpatient hypo/hyperglycemia. Thank you.
[2017-05-02 06:51] VITALS: BP_SYST 126; BP_SYST 128; BP_DIAS 77; BP_DIAS 82; PULSE 62; PULSE 68; TEMP 36.9
[2017-05-02] MEDS: CLONAZEPAM 0.5 MG TAB PO PRN (07:25)
[2017-05-02] MEDS: LEVOTHYROXINE 112 MCG TAB PO SCH (07:25)
[2017-05-02] MEDS: INSULIN ASPART 100 UNITS/ML 3 ML PEN SC SCH ×4 (09:00→21:08)
[2017-05-02] MEDS: ASPIRIN 81 MG ECTAB PO SCH (09:04)
[2017-05-02] MEDS: LISINOPRIL 10 MG TAB PO SCH (09:05)
[2017-05-02] MEDS: PRAVASTATIN SOD 20 MG TAB PO SCH (09:05)
[2017-05-02] MEDS: BuPROPion SR 100 MG TABCR PO SCH (09:05)
[2017-05-02] MEDS: ESCITALOPRAM OXALATE 10 MG TAB PO SCH (09:05)
[2017-05-02] MEDS: NICOTINE 14 MG/24 HR TDSY TD SCH (09:06)
--- NOTE | 2017-05-02 09:12 | Psychiatric Progress Notes ---
Progress Note Date of Service May 02, 2017. Interval History 61-year-old woman with depression and anxiety, admitted voluntarily with suicidality. She has been experiencing nausea vomiting and diarrhea since starting on Paxil 3 weeks ago and so we will discontinue this in favor of another trial of an SSRI. She has been on only Wellbutrin in the past. We will start Lexapro 5 mg daily increasing to 10 mg tomorrow. We will continue Wellbutrin 200 mg daily. We will also send her liquid stools for culture and C. difficile to rule out any infection but I suspect that her GI condition is related to the Paxil which she started at the same time. She has been using Xanax as an outpatient but we will convert this to Klonopin for its longer half life. Hopefully we will be able to discontinue this over time if she has a good response to an SSRI. We will provide nicotinic replacements, we will involve her family in her treatment at her request. We will coordinate with her outpatient providers. At this time however the patient requires inpatient mental health treatment due to the severity of her condition, and the risk for self-harm if discharged. Chief Complaint "I just don't feel well.". Subjective Patient was seen & assessed interval progress reviewed with Treatment Team. The patient is in bed resting. She has already asked for a prn of Klonopin this AM due to anxiety. On the positive side, she is not nauseated, and says she will try to eat her breakfast, and she slept well last night. Her mood is "pretty bad", but denies SI. She is hopeful that her family will visit today and bring her some clothes. BSG's have been variable. Staff report that she has not been attending groups, but remaining in her room in bed. Review of Systems Constitutional: + fatigue ENT: No hearing loss, No unusual epistaxis, No nasal symptoms, No sore throat, No tinnitus, No dental problems, No trouble swallowing, No problem reported Respiratory: No cough, No sputum, No wheezing, No shortness of breath, No dyspnea on exertion, No dyspnea at rest, No hemoptysis, No problem reported Cardiovascular: No chest pain, No orthopnea, No PND, No edema, No claudication , No palpitations, No problem reported Abdomen: + pain (stomacbh) Musculoskeletal: No joint pain, No muscle pain, No swelling, No calf pain, No problem reported Neurologic: No memory loss, No paralysis, No weakness, No numbness/tingling, No vertigo, No balance problems, No problem reported Psychiatric: + depression symptoms, + anxiety Sleep Information Total Hours of Sleep: 8.50 Meal Information Percent of Breakfast Consumed: 40 Percent of Lunch Consumed: 40 Percent of Dinner Consumed: 75 Mental Status Exam During interview pt is: alert and oriented, cooperative Appearance: appropriately dressed, appropriately groomed Eye contact is: good Motor behavior is: steady gait & station, no abnormal motor movements Speech: normal in rate, rhythm & volume Affect: mood congruent, depressed, flat Mood is: depressed, anxious Thought process: goal directed Thought content: reality based without delusions Suicidal thought are: present (passive) Homicidal thoughts are: denied Hallucinations: denies auditory, denies visual Cognition: memory grossly intact, attention grossly intact, language grossly intact Intelligence estimated to be: average Insight: impaired Judgement: impaired Impression Has been avoiding the milieu, staying in her bed. We have switched from Paxil to Lexapro and initially she is not nauseated this AM, which is hopeful. She remains very anxious, and focused on feeling unwell. She has not had a BM yet so no sample to send for studies. Family will visit today and will arrange for a family meeting this week. Plan (1) Major depressive disorder, recurrent severe without psychotic features 05/01 - DC Paxil due to GI complaints -Start Lexapro 5 mg daily increasing to 10 mg tomorrow - Every 15 minute checks for safety - Obtain outpatient records from an coordinate care with current providers -Encourage participation in group and individual counseling- - Assist the patient to explore healthy coping strategies - Family meeting 05/02 - Continue current meds - Arrange family meeting (2) Tobacco use disorder 05/01 -Encourage the patient to cut down or consider quitting - Will provide nicotinic patch 14 mg daily as well as Nicorette gum one every 1 hour when necessary neck team withdrawal (3) Diarrhea 05/01 -Stool for cultures and C. difficile - Suspect this may be a side effect to the Paxil. See medication plan above 05/02 - No stool samples yet (4) Diabetes mellitus 05/01 - Continue patient's home regimen of NovoLog and Lantus insulins - BS cheese before meals and at bedtime - Will request a consult with the diabetic pharmacist for management (5) HTN (hypertension) 05/01 - Continue home medications - Monitor BP's - Encourage exercise- (6) Hypothyroidism 05/02 - TSH slightly elevated. Will obtain a free T4 Has been reviewed with Dr. Lindsay solis Discharge / Aftercare Planning Therapist: Name: ALEJANDRO Stewart Date of Appointment: May 03, 2017 Telegraphic Typewriter Repairer: Name: None Visit Code E&M Code: 55788 Inventory Assets Strengths: Support of family, willingness to engage in treatment Needs: 2 abstain from alcohol at this time Risk Factors Assessment : Yes /single/: Yes Higher / Fall in social status: No Health problems: Yes Mental Health Diagnoses: Yes Substance use disorders: No Previous psychiatric stay: Yes Smoker: Yes Protective Factors Assessment : No Responsible for young children: No Employed: No Stable relationships: Yes Supportive family: Yes Good rapport with provider: Yes Data Vital Signs Last 24 Hrs: Date Time Temp Pulse Resp B/P (MAP) Pulse Ox O2 Delivery O2 Flow Rate FiO2 05/02/17 06:51 36.9 62 16 126/82 68 128/77 Meds Administered Last 24 Hrs: Meds Administered (Past 24Hrs) Medications (Trade) Dose Ordered Sig/Sharmin Route Start Time Stop Time Status Last Admin Dose Admin Hydroxyzine HCl (Vistaril Tab) 50 mg HSZ PRN PO 05/01/17 01:30 05/31/17 01:29 05/01/17 01:43 50 MG Levothyroxine Sodium (Synthroid Tab) 112 mcg DAILYBB PO 05/01/17 08:00 05/31/17 07:59 05/02/17 07:25 112 MCG Insulin Aspart (novoLOG ASPART) ACHS SC 05/01/17 08:00 05/31/17 07:59 05/01/17 20:46 5 UNITS Insulin Glargine (Lantus Solostar Pen) 14U FOR BLOOD PEREZ... HS SC 05/01/17 01:45 05/31/17 01:44 05/01/17 20:48 14 UNITS Aspirin (Ecotrin Tab) 81 mg 0925 ONCE PO 05/01/17 09:25 05/01/17 09:41 DC 05/01/17 09:56 81 MG Bupropion HCl (Wellbutrin-Sr Tab) 200 mg 0925 ONCE PO 05/01/17 09:25 05/01/17 09:41 DC 05/01/17 09:58 200 MG Lisinopril (Zestril Tab) 10 mg 0925 ONCE PO 05/01/17 09:25 05/01/17 09:41 DC 05/01/17 09:58 10 MG Pravastatin Sodium (Pravachol Tab) 20 mg 0925 ONCE PO 05/01/17 09:25 05/01/17 09:41 DC 05/01/17 09:57 20 MG Escitalopram Oxalate (Lexapro Tab) 5 mg 0925 ONCE PO 05/01/17 09:25 05/01/17 09:41 DC 05/01/17 09:56 5 MG Clonazepam (Klonopin Tab) 0.5 mg BID PRN PO 05/01/17 09:45 05/31/17 09:44 05/02/17 07:25 0.5 MG Lab Results Last 24 Hrs: Last 24 Hours Test 05/01/17 12:12 05/01/17 16:21 05/01/17 20:36 05/02/17 07:29 Bedside Glucose 157 mg/dl 90 mg/dl 170 mg/dl 97 mg/dl Problem Qualifiers (1) Diabetes mellitus: Diabetes mellitus complication status: with unspecified complications 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
[2017-05-02] MEDS: hydrOXYzine HCL 25 MG TAB PO PRN (11:45)
--- NOTE | 2017-05-02 14:30 | Pharmacy Progress Note ---
Glycemic Control Progress Note Date of Service May 02, 2017. Scope Glycemic Pharmacist consulted for glycemic control to write orders per [facility] inpatient glycemic control protocol. Objective Accuchecks BSG (last 24hrs): Test 05/01/17 16:21 05/01/17 20:36 05/02/17 07:29 05/02/17 11:39 Bedside Glucose 90 mg/dl (70-90) 170 mg/dl (70-90) 97 mg/dl (70-90) 295 mg/dl (70-90) refused morning carb coverage Recent Pertinent Medications Outpatient Anti-diabetic Regimen: * Lantus per scale: * 15U FOR BLOOD SUGAR 120-180 * 16U FOR BLOOD SUGAR 181-225 * 17U FOR BLOOD SUGAR 226-280 * 18U FOR BLOOD SUGAR 281 OR GREATER * Novolog per SLIDING SCALE: * 4U FOR BLOOD SUGAR 120-150 * 5U FOR BLOOD SUGAR 151-180 * 6U FOR BLOOD SUGAR 181 OR HIGHER Currently ordered: Basal Insulin: Lantus SQ Q HS per the following scale: -14U for BSG 120-180 -15U for BSG 181-225 -16U for BSG 226-280 -17U for BSG 281 or greater Correctional Insulin: Novolog SQ ACHS Correction Factor: 35mg/dL/unit Goal Range: Low 110 - High 140 mg/dL Prandial Insulin: 1 unit per 10 grams CHO's consumed w/ meals Risk Factors for Insulin Resistance: * Diet: ordered Type 2 DM diet Assessment & Plan ASSESSMENT: 05/01/17 * Type 1 diabetic admitted overnight to mental health unit * Based upon outpatient regimen and prior admission data, it appears that she will require ~30-35 units of insulin per day (while tolerating a diet) * Patient did become hypoglycemic this AM after receiving 15 units of Lantus at ~0200 am; likely her poor PO intake contributed to this low. Will adjust the Lantus dose down slightly in light of dietary habits * She is currently ordered a sliding scale for her Novolog doses and given her change in dietary intake it would be better to count carbs 05/02/17 * BSGs had ranged 90-170 over the last 24 hours with the exception of today's pre-lunch BSG of 295 which is explainable - the patient had refused Novolog coverage with breakfast meal * Fasting BSG 97 this AM w/ 14 units of Lantus on board * Post-prandial BSGs were well controlled yesterday with current CR and CF - would like to continue w/ the same today and follow post-prandial BSGs PLAN FOR INPATIENT GLYCEMIC CONTROL: * Continue HS Lantus dose of: * 14U FOR BLOOD SUGAR 120-180 * 15U FOR BLOOD SUGAR 181-225 * 16U FOR BLOOD SUGAR 226-280 * 17U FOR BLOOD SUGAR 281 OR GREATER * Continue Novolog SQ ACHS * correction factor 35 mg/dl/unit * carb ratio 1 unit per 10 grams CHO consumed * goal range Low 110 mg/dL - High 140 mg/dL * Please note that the plan above was derived based on current level of insulin resistance and hospital stress. These recommendations are appropriate for inpatient admission only. Plan of care upon discharge will need to be reassessed to avoid potential outpatient hypo/hyperglycemia. Thank you.
[2017-05-02] MEDS: INSULIN GLARGINE SOLOSTAR 100 UNITS/ML 3 ML PEN SC SCH (21:07)
[2017-05-02] MEDS ORDERED: PRAVASTATIN SOD 20 MG TAB PO SCH (22:00)
[2017-05-03 06:57] VITALS: BP_SYST 134; BP_SYST 136; BP_DIAS 74; BP_DIAS 80; PULSE 66; PULSE 68; TEMP 36.5
[2017-05-03] MEDS: LEVOTHYROXINE 112 MCG TAB PO SCH (07:56)
[2017-05-03] MEDS: CLONAZEPAM 0.5 MG TAB PO PRN ×2 (08:05→15:58)
[2017-05-03] MEDS: INSULIN ASPART 100 UNITS/ML 3 ML PEN SC SCH ×4 (08:38→21:47)
[2017-05-03] MEDS: PRAVASTATIN SOD 20 MG TAB PO SCH (08:39)
[2017-05-03] MEDS: BuPROPion SR 100 MG TABCR PO SCH (08:39)
[2017-05-03] MEDS: ESCITALOPRAM OXALATE 10 MG TAB PO SCH (08:39)
[2017-05-03] MEDS: ASPIRIN 81 MG ECTAB PO SCH (08:39)
[2017-05-03] MEDS: LISINOPRIL 10 MG TAB PO SCH (08:40)
[2017-05-03] MEDS: NICOTINE 14 MG/24 HR TDSY TD SCH (08:40)
--- NOTE | 2017-05-03 11:20 | Psychiatric Progress Notes ---
Progress Note Date of Service May 03, 2017. Interval History 61-year-old woman with depression and anxiety, admitted voluntarily with suicidality. She has been experiencing nausea vomiting and diarrhea since starting on Paxil 3 weeks ago and so we will discontinue this in favor of another trial of an SSRI. She has been on only Wellbutrin in the past. We will start Lexapro 5 mg daily increasing to 10 mg tomorrow. We will continue Wellbutrin 200 mg daily. We will also send her liquid stools for culture and C. difficile to rule out any infection but I suspect that her GI condition is related to the Paxil which she started at the same time. She has been using Xanax as an outpatient but we will convert this to Klonopin for its longer half life. Hopefully we will be able to discontinue this over time if she has a good response to an SSRI. We will provide nicotinic replacements, we will involve her family in her treatment at her request. We will coordinate with her outpatient providers. At this time however the patient requires inpatient mental health treatment due to the severity of her condition, and the risk for self-harm if discharged. Chief Complaint "I still feel pretty much the same way". Subjective Patient was seen & assessed interval progress reviewed with Treatment Team. Staff report she has been very anxious and isolating in her room, refusing most groups. She has requested when necessary's of hydroxyzine and clonazepam for her anxiety. Today, she reports that she feels no better than on admission, says she is "depressed, sick, and tired." She reports feeling so anxious that she is nauseated, and has little appetite. She states her diarrhea had improved over the weekend and she had formed bowel movements, but last night she started having watery stools again. She was informed of the negative results of her C. difficile, and that the other tests are still pending. She reports chronic GI symptoms with abdominal pain related to anxiety, and has seen a GI specialist in the past. She states that mood is no better than on admission, and she continues to feel very depressed and tired, stating she slept poorly overnight and all she wants to do today is sleep. She reports poor motivation, but states she did get up and go to 2 groups so far this morning. She denies suicidal thoughts. She wants to know what further medication changes can be made so that she will feel better. She has a family meeting with her daughter tomorrow, and states that she is thinking she needs to go back to her home and [place], as she has been staying with her daughter and feels "it is too much for her, she is only 25 years old." She said she initially went to stay with her daughter at her daughter's suggestion, as the patient's therapist is close by in [place], and the patient lives in hour away while her daughter lives in [place]. 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 In addition, she tends to isolate, which she recognizes as not good for her. Sleep Information Total Hours of Sleep: 6.50 Meal Information Percent of Breakfast Consumed: 100 Percent of Lunch Consumed: 25 Percent of Dinner Consumed: 90 Mental Status Exam During interview pt is: alert and oriented, cooperative Appearance: appropriately dressed, disheveled, other (wearing scrub pants and a sweater, short hair is disheveled but appears clean, no makeup) Eye contact is: good Motor behavior is: steady gait & station, no abnormal motor movements Speech: normal in rate, rhythm & volume Affect: mood congruent, depressed, constricted Mood is: depressed, anxious, other ("I still feel pretty much the same way, depressed, tired, and sick.") Thought process: goal directed Thought content: reality based without delusions Suicidal thought are: denied Homicidal thoughts are: denied Hallucinations: denies auditory, denies visual Cognition: memory grossly intact, attention grossly intact, language grossly intact Intelligence estimated to be: average Insight: impaired Judgement: impaired Impression Has been isolating in her room and refusing most groups, and has been encouraged to stay out of bed during the day and participate in treatment. She has been switched from Paxil to Lexapro to try to target nausea and diarrhea. She remains very anxious, and focused on feeling unwell. Family meeting scheduled with daughter on 05/04/2017. Plan (1) Major depressive disorder, recurrent severe without psychotic features 05/01 - DC Paxil due to GI complaints -Start Lexapro 5 mg daily increasing to 10 mg tomorrow - Every 15 minute checks for safety - Obtain outpatient records from an coordinate care with current providers -Encourage participation in group and individual counseling- - Assist the patient to explore healthy coping strategies - Family meeting 05/02 - Continue current meds - Arrange family meeting 05/03 - Increase escitalopram to 15 mg daily for tomorrow. - Patient encouraged to utilize her when necessary's, including clonazepam and hydroxyzine, for sleep and anxiety. (2) Tobacco use disorder 05/01 -Encourage the patient to cut down or consider quitting - Will provide nicotinic patch 14 mg daily as well as Nicorette gum one every 1 hour when necessary neck team withdrawal (3) Diarrhea 05/01 - Stool for cultures and C. difficile - Suspect this may be a side effect to the Paxil. See medication plan above 05/02 - No stool samples yet 102 - Patient informed of negative C. difficile results. Stool shiga toxin and cultures still pending. (4) Diabetes mellitus 05/01 - Continue patient's home regimen of NovoLog and Lantus insulins - BS cheese before meals and at bedtime - Will request a consult with the diabetic pharmacist for management (5) HTN (hypertension) 05/01 - Continue home medications - Monitor BP's - Encourage exercise- (6) Hypothyroidism 05/02 - TSH slightly elevated. Will obtain a free T4 - normal at 1.10. Discharge / Aftercare Planning Therapist: Name: ALEJANDRO Stewart Date of Appointment: May 03, 2017 Surgical Supply Assistant: Name: None Visit Code E&M Code: 59159 Inventory Assets Strengths: Support of family, willingness to engage in treatment Needs: To abstain from alcohol at this time Risk Factors Assessment : Yes /single/: Yes Higher / Fall in social status: No Access to guns: Yes (daughter has guns, but locked) Health problems: Yes Mental Health Diagnoses: Yes Substance use disorders: No Previous attempt: No Family history of suicide: Yes Previous psychiatric stay: Yes Hopelessness: Yes Smoker: Yes Protective Factors Assessment : No Responsible for young children: No Employed: No Stable relationships: Yes Supportive family: Yes Good rapport with provider: Yes Data Vital Signs Last 24 Hrs: Date Time Temp Pulse Resp B/P (MAP) Pulse Ox O2 Delivery O2 Flow Rate FiO2 05/03/17 06:57 36.5 66 16 134/80 68 136/74 Meds Administered Last 24 Hrs: Meds Administered (Past 24Hrs) Medications (Trade) Dose Ordered Sig/Sharmin Route Start Time Stop Time Status Last Admin Dose Admin Aspirin (Ecotrin Tab) 81 mg DAILY PO 05/02/17 09:00 06/01/17 08:59 05/03/17 08:39 81 MG Bupropion HCl (Wellbutrin-Sr Tab) 200 mg DAILY PO 05/02/17 09:00 06/01/17 08:59 05/03/17 08:39 200 MG Lisinopril (Zestril Tab) 10 mg DAILY PO 05/02/17 09:00 06/01/17 08:59 05/03/17 08:40 10 MG Escitalopram Oxalate (Lexapro Tab) 10 mg QAM PO 05/02/17 09:00 06/01/17 08:59 05/03/17 08:39 10 MG Nicotine (Nicoderm Cq 14MG Patch) 1 patch QAM TD 05/02/17 09:00 06/01/17 08:59 05/03/17 08:40 1 PATCH Pravastatin Sodium (Pravachol Tab) 20 mg QAM PO 05/02/17 09:00 06/01/17 08:59 05/03/17 08:39 20 MG Lab Results Last 24 Hrs: Last 24 Hours Test 05/02/17 11:39 05/02/17 17:13 05/02/17 20:07 05/03/17 07:58 Bedside Glucose 295 mg/dl 130 mg/dl 292 mg/dl 110 mg/dl Problem Qualifiers (1) Diabetes mellitus: Diabetes mellitus complication status: with unspecified complications 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
[2017-05-03] MEDS: hydrOXYzine HCL 25 MG TAB PO PRN (21:40)
[2017-05-03] MEDS: INSULIN GLARGINE SOLOSTAR 100 UNITS/ML 3 ML PEN SC SCH (21:46)
[2017-05-04 07:03] VITALS: BP_SYST 109; BP_SYST 114; BP_DIAS 68; BP_DIAS 69; PULSE 58; PULSE 65; TEMP 36.3
[2017-05-04] MEDS: LEVOTHYROXINE 112 MCG TAB PO SCH (07:58)
[2017-05-04] MEDS: INSULIN ASPART 100 UNITS/ML 3 ML PEN SC SCH ×4 (08:00→21:45)
[2017-05-04] MEDS: ASPIRIN 81 MG ECTAB PO SCH (08:35)
[2017-05-04] MEDS: BuPROPion SR 100 MG TABCR PO SCH (08:36)
[2017-05-04] MEDS: ESCITALOPRAM OXALATE 10 MG TAB PO SCH (08:36)
[2017-05-04] MEDS: PRAVASTATIN SOD 20 MG TAB PO SCH (08:36)
[2017-05-04] MEDS: LISINOPRIL 10 MG TAB PO SCH (08:37)
[2017-05-04] MEDS: CLONAZEPAM 0.5 MG TAB PO PRN ×2 (08:38→18:05)
[2017-05-04] MEDS: NICOTINE 14 MG/24 HR TDSY TD SCH (08:41)
[2017-05-04] MEDS: hydrOXYzine HCL 25 MG TAB PO PRN ×2 (09:19→21:40)
--- NOTE | 2017-05-04 09:39 | Psychiatric Progress Notes ---
Progress Note Date of Service May 04, 2017. Interval History 61-year-old woman with depression and anxiety, admitted voluntarily with suicidality. She has been experiencing nausea vomiting and diarrhea since starting on Paxil 3 weeks ago and so we will discontinue this in favor of another trial of an SSRI. She has been on only Wellbutrin in the past. We will start Lexapro 5 mg daily increasing to 10 mg tomorrow. We will continue Wellbutrin 200 mg daily. We will also send her liquid stools for culture and C. difficile to rule out any infection but I suspect that her GI condition is related to the Paxil which she started at the same time. She has been using Xanax as an outpatient but we will convert this to Klonopin for its longer half life. Hopefully we will be able to discontinue this over time if she has a good response to an SSRI. We will provide nicotinic replacements, we will involve her family in her treatment at her request. We will coordinate with her outpatient providers. At this time however the patient requires inpatient mental health treatment due to the severity of her condition, and the risk for self-harm if discharged. Chief Complaint "Not so great". Subjective Patient was seen & assessed interval progress reviewed with Nursing. Staff report the patient attended groups yesterday, but isolated in her room in between groups. She has been utilizing clonazepam for anxiety on a daily basis. This morning she reported high anxiety and got a dose of clonazepam with her morning meds. She was seen in her room, where she had retreated to bed. She states that she is not feeling well, is very anxious and tired, and slept poorly last night. She has a family meeting with her daughter this morning, and is not sure what she wants to address. She cannot name any coping skills that she has been trying to manage her anxiety, other than taking when necessary medications. She was encouraged to work on this today. She admits that she is not caring for herself, has not showered in 2 days, and is not brushing her teeth regularly. Sleep Information Total Hours of Sleep: 6.50 Meal Information Percent of Breakfast Consumed: 50 Percent of Lunch Consumed: 25 Percent of Dinner Consumed: 95 Mental Status Exam During interview pt is: alert and oriented, cooperative Appearance: appropriately dressed, disheveled, other (in bed with the covers pulled up) Eye contact is: good, fair Motor behavior is: no abnormal motor movements Speech: normal in rate, rhythm & volume Affect: mood congruent, depressed, constricted Mood is: depressed, anxious, other ("anxious and tired") Thought process: goal directed Thought content: reality based without delusions Suicidal thought are: denied Homicidal thoughts are: denied Hallucinations: denies auditory, denies visual Cognition: memory grossly intact, attention grossly intact, language grossly intact Intelligence estimated to be: average Insight: impaired Judgement: impaired Impression Went to more groups yesterday, but still retreats to bed frequently, and continues to report poor sleep at night and high anxiety during the day, for which she is taking clonazepam as needed. She is unable to list any behavioral techniques she has tried for anxiety. She has been switched from Paxil to Lexapro to try to target nausea and diarrhea. She remains very anxious, and focused on feeling unwell. Family meeting scheduled with daughter this morning. Plan (1) Major depressive disorder, recurrent severe without psychotic features 05/01 - DC Paxil due to GI complaints -Start Lexapro 5 mg daily increasing to 10 mg tomorrow - Every 15 minute checks for safety - Obtain outpatient records from an coordinate care with current providers -Encourage participation in group and individual counseling- - Assist the patient to explore healthy coping strategies - Family meeting 05/02 - Continue current meds - Arrange family meeting 05/03 - Increase escitalopram to 15 mg daily for tomorrow. - Patient encouraged to utilize her when necessary's, including clonazepam and hydroxyzine, for sleep and anxiety. 05/04 - Continue current medications, and continue to encourage the patient to be out of bed and participating in treatment during the day. - Work on behavioral techniques for managing anxiety. - Family meeting with daughter today. (2) Tobacco use disorder 05/01 -Encourage the patient to cut down or consider quitting - Will provide nicotinic patch 14 mg daily as well as Nicorette gum one every 1 hour when necessary for nicotine withdrawal (3) Diarrhea 05/01 - Stool for cultures and C. difficile - Suspect this may be a side effect to the Paxil. See medication plan above 05/02 - No stool samples yet 102 - Patient informed of negative C. difficile results. Stool shiga toxin and cultures still pending. (4) Diabetes mellitus 05/01 - Continue patient's home regimen of NovoLog and Lantus insulins - BS cheese before meals and at bedtime - Will request a consult with the diabetic pharmacist for management (5) HTN (hypertension) 05/01 - Continue home medications - Monitor BP's - Encourage exercise- (6) Hypothyroidism 05/02 - TSH slightly elevated. Will obtain a free T4 - normal at 1.10. Discharge / Aftercare Planning Primary Care Physician: Name: Dr Camarena Therapist: Name: ALEJANDRO Stewart Date of Appointment: May 03, 2017 Gas Plant Operator: Name: None Visit Code E&M Code: 78673 Inventory Assets Strengths: Support of family, willingness to engage in treatment Needs: To abstain from alcohol at this time Risk Factors Assessment : Yes /single/: Yes Higher / Fall in social status: No Access to guns: Yes (daughter has guns, but locked) Health problems: Yes Mental Health Diagnoses: Yes Substance use disorders: No Previous attempt: No Family history of suicide: Yes Previous psychiatric stay: Yes Hopelessness: Yes Smoker: Yes Protective Factors Assessment : No Responsible for young children: No Employed: No Stable relationships: Yes Supportive family: Yes Good rapport with provider: Yes Data Vital Signs Last 24 Hrs: Date Time Temp Pulse Resp B/P (MAP) Pulse Ox O2 Delivery O2 Flow Rate FiO2 05/04/17 07:03 36.3 58 16 114/69 65 109/68 Meds Administered Last 24 Hrs: Meds Administered (Past 24Hrs) Medications (Trade) Dose Ordered Sig/Sharmin Route Start Time Stop Time Status Last Admin Dose Admin Escitalopram Oxalate (Lexapro Tab) 15 mg QAM PO 05/04/17 09:00 06/01/17 08:59 05/04/17 08:36 15 MG Lab Results Last 24 Hrs: Last 24 Hours Test 05/03/17 12:27 05/03/17 17:16 05/03/17 21:17 05/04/17 07:55 Bedside Glucose 209 mg/dl 196 mg/dl 296 mg/dl 76 mg/dl Problem Qualifiers (1) Diabetes mellitus: Diabetes mellitus complication status: with unspecified complications 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
--- NOTE | 2017-05-04 11:20 | Pharmacy Progress Note ---
Glycemic Control Progress Note Date of Service May 04, 2017. Scope Glycemic Pharmacist consulted for glycemic control to write orders per [facility] inpatient glycemic control protocol. Objective Accuchecks BSG (last 24hrs): Test 05/03/17 12:27 05/03/17 17:16 05/03/17 21:17 05/04/17 07:55 Bedside Glucose 209 mg/dl (70-90) 196 mg/dl (70-90) 296 mg/dl (70-90) 76 mg/dl (70-90) Recent Pertinent Medications Currently ordered: Basal Insulin: Lantus SQ Q HS per the following scale: -14U for BSG 120-180 -15U for BSG 181-225 -16U for BSG 226-280 -17U for BSG 281 or greater Correctional Insulin: Novolog SQ ACHS Correction Factor: 35mg/dL/unit Goal Range: Low 110 - High 140 mg/dL Prandial Insulin: 1 unit per 10 grams CHO's consumed w/ meals Risk Factors for Insulin Resistance: * Diet: ordered Type 2 DM diet Outpatient Anti-Diabetic Meds * Lantus per scale: * 15U FOR BLOOD SUGAR 120-180 * 16U FOR BLOOD SUGAR 181-225 * 17U FOR BLOOD SUGAR 226-280 * 18U FOR BLOOD SUGAR 281 OR GREATER * Novolog per SLIDING SCALE: * 4U FOR BLOOD SUGAR 120-150 * 5U FOR BLOOD SUGAR 151-180 * 6U FOR BLOOD SUGAR 181 OR HIGHER Assessment & Plan ASSESSMENT: * See progress note from 05/01/17 for more background info * Patient is currently receiving an average of 43 units of insulin per day * 17 units of basal insulin * 26 units of prandial/correctional insulin * BSGs ranging 110 -296 mg/dl over the past 24hrs * Changes needed to insulin regimen: * AM Fasting BSG = 76 mg/dl. This is in slightly below goal range for patient based on inpatient targets and co-morbidities. This is likely due to her highest BSG of the day being at bedtime - she gets a large dose of correctional insulin in addition to higher dose of Lantus at bedtime * Post-prandial BSGs are elevated/BSGs rise throughout the day therefore need to tighten CF/CR * Hopefully by slightly tightening Novolog by giving 1-2 additional units per check her bedtime BSG is lower requiring less correction and less basal insulin - will continue to monitor closely and change HS coverage if necessary tomorrow PLAN FOR INPATIENT GLYCEMIC CONTROL: * Continue HS Lantus dose of: * 14U FOR BLOOD SUGAR 120-180 * 15U FOR BLOOD SUGAR 181-225 * 16U FOR BLOOD SUGAR 226-280 * 17U FOR BLOOD SUGAR 281 OR GREATER * Tighten Novolog SQ ACHS * correction factor 30 mg/dl/unit * carb ratio 1 unit per 8 grams CHO consumed * goal range Low 110 mg/dL - High 140 mg/dL * Please note that the plan above was derived based on current level of insulin resistance and hospital stress. These recommendations are appropriate for inpatient admission only. Plan of care upon discharge will need to be reassessed to avoid potential outpatient hypo/hyperglycemia. Thank you.
[2017-05-04] MEDS: INSULIN GLARGINE SOLOSTAR 100 UNITS/ML 3 ML PEN SC SCH (21:43)
[2017-05-05 06:44] VITALS: BP_SYST 101; BP_SYST 111; BP_DIAS 66; BP_DIAS 68; PULSE 56; PULSE 64; TEMP 36.8
[2017-05-05] MEDS: LEVOTHYROXINE 112 MCG TAB PO SCH (07:59)
[2017-05-05] MEDS: ASPIRIN 81 MG ECTAB PO SCH (08:59)
[2017-05-05] MEDS: ESCITALOPRAM OXALATE 10 MG TAB PO SCH (08:59)
[2017-05-05] MEDS: LISINOPRIL 10 MG TAB PO SCH (09:00)
[2017-05-05] MEDS: PRAVASTATIN SOD 20 MG TAB PO SCH (09:00)
[2017-05-05] MEDS: CLONAZEPAM 0.5 MG TAB PO PRN ×2 (09:00→18:08)
[2017-05-05] MEDS: BuPROPion SR 100 MG TABCR PO SCH (09:00)
[2017-05-05] MEDS: INSULIN ASPART 100 UNITS/ML 3 ML PEN SC SCH ×4 (09:05→20:54)
[2017-05-05] MEDS: NICOTINE 14 MG/24 HR TDSY TD SCH (09:16)
[2017-05-05] MEDS: hydrOXYzine HCL 25 MG TAB PO PRN ×2 (10:25→21:04)
--- NOTE | 2017-05-05 11:13 | Psychiatric Progress Notes ---
Progress Note Date of Service May 05, 2017. Interval History 61-year-old woman with depression and anxiety, admitted voluntarily with suicidality. She has been experiencing nausea vomiting and diarrhea since starting on Paxil 3 weeks ago and so we will discontinue this in favor of another trial of an SSRI. She has been on only Wellbutrin in the past. We will start Lexapro 5 mg daily increasing to 10 mg tomorrow. We will continue Wellbutrin 200 mg daily. We will also send her liquid stools for culture and C. difficile to rule out any infection but I suspect that her GI condition is related to the Paxil which she started at the same time. She has been using Xanax as an outpatient but we will convert this to Klonopin for its longer half life. Hopefully we will be able to discontinue this over time if she has a good response to an SSRI. We will provide nicotinic replacements, we will involve her family in her treatment at her request. We will coordinate with her outpatient providers. At this time however the patient requires inpatient mental health treatment due to the severity of her condition, and the risk for self-harm if discharged. Chief Complaint "I just want to crawl back in bed.". Subjective Patient was seen & assessed interval progress reviewed with Treatment Team. The patient is saying that she remains depressed, although feelig "maybe a little better". When asked how she is feeling better, she says that her GI tract has settled down and the diarrhea gone. She is also finding our unit to be far superior to her previous inpatient experience. She continues to feel anxious, worst in the AM. She feels that its hard to get out of bed or even eat because of depression and anxiety. She is scheduled for a family meeting today and doesn 't know what they can discuss. She feels that her daughter makes her go do things that she doesn't want to do, like go to [employer] or a green party with daughter' s friends. She doesn't enjoy those things, but says daughter tells her to " suck it up". She feels that there is little for her to do around daughter's house because its new, needs little upkeep and the body maker don't take more that an hour or so to complete. She talked about her home in [place] being too big for her, but not knowing where she would move if she sold it. She does not socialize her with her neighbors although says that she believes her next door neighbor has been depressed herself, but doesn't want to reach out to her, feeling ashamed of her depression. She doesn't want anyone to know. Her anxiety is focused on the future, about what she will do moving forward. She reports that although she is sleeping better, she isn't sleeping "like I want". Staff report that although she is attending groups, she spends her free time in bed. She denies SI, but feels hopeless that things will get better. Her appetite is better, eating >50% of meals. Review of Systems Constitutional: + fatigue ENT: No hearing loss, No unusual epistaxis, No nasal symptoms, No sore throat, No tinnitus, No dental problems, No trouble swallowing, No problem reported Respiratory: No cough, No sputum, No wheezing, No shortness of breath, No dyspnea on exertion, No dyspnea at rest, No hemoptysis, No problem reported Cardiovascular: No chest pain, No orthopnea, No PND, No edema, No claudication , No palpitations, No problem reported Abdomen: No pain, No nausea, No vomiting, No diarrhea, No constipation, No GI bleeding, No problem reported Musculoskeletal: No joint pain, No muscle pain, No swelling, No calf pain, No problem reported Neurologic: No memory loss, No paralysis, No weakness, No numbness/tingling, No vertigo, No balance problems, No problem reported Psychiatric: + depression symptoms, + anxiety Integumentary: No rash, No itch, No new/changing skin lesions, No color change , No bleeding, No problem reported Sleep Information Total Hours of Sleep: 6.00 Meal Information Percent of Breakfast Consumed: 50 Percent of Lunch Consumed: 50 Percent of Dinner Consumed: 100 Mental Status Exam During interview pt is: alert and oriented, cooperative Appearance: appropriately dressed Eye contact is: good Motor behavior is: no abnormal motor movements Speech: normal in rate, rhythm & volume Affect: mood congruent, depressed, flat, constricted Mood is: depressed, anxious Thought process: goal directed Thought content: reality based without delusions Suicidal thought are: denied Homicidal thoughts are: denied Hallucinations: denies auditory, denies visual Cognition: memory grossly intact, attention grossly intact, language grossly intact Intelligence estimated to be: average Insight: impaired Judgement: impaired Impression Some mild improvement, but remains somatically focused and is retreating to bed , which is likely disturbing her night time sleep. Lexapro increased to 15 mg. starting today. I have asked her to make every effort to stay out of bed in the day, in an effort to improved the quality of sleep at HS. I have also given her an assignment to make a list of activities that she is willing to do with her daughter when daughter sees that she is isolating and inactive. Both requests seemed overwhelming to her but she was willing to try. Although without acute SI, she is nonfunctional without the structure of the milieu and requires ongoing inpatient treatment. Plan (1) Major depressive disorder, recurrent severe without psychotic features 05/01 - DC Paxil due to GI complaints -Start Lexapro 5 mg daily increasing to 10 mg tomorrow - Every 15 minute checks for safety - Obtain outpatient records from an coordinate care with current providers -Encourage participation in group and individual counseling- - Assist the patient to explore healthy coping strategies - Family meeting 05/02 - Continue current meds - Arrange family meeting 05/03 - Increase escitalopram to 15 mg daily for tomorrow. - Patient encouraged to utilize her when necessary's, including clonazepam and hydroxyzine, for sleep and anxiety. 05/04 - Continue current medications, and continue to encourage the patient to be out of bed and participating in treatment during the day. - Work on behavioral techniques for managing anxiety. - Family meeting with daughter today. 05/05 - Continue current meds - Tasked to make a list of activities she was willing to engage in at home (2) Tobacco use disorder 05/01 -Encourage the patient to cut down or consider quitting - Will provide nicotinic patch 14 mg daily as well as Nicorette gum one every 1 hour when necessary for nicotine withdrawal (3) Diarrhea 05/01 - Stool for cultures and C. difficile - Suspect this may be a side effect to the Paxil. See medication plan above 05/02 - No stool samples yet 102 - Patient informed of negative C. difficile results. Stool shiga toxin and cultures still pending. (4) Diabetes mellitus 05/01 - Continue patient's home regimen of NovoLog and Lantus insulins - BS cheese before meals and at bedtime - Will request a consult with the diabetic pharmacist for management (5) HTN (hypertension) 05/01 - Continue home medications - Monitor BP's - Encourage exercise- (6) Hypothyroidism 05/02 - TSH slightly elevated. Will obtain a free T4 - normal at 1.10. Discharge / Aftercare Planning Primary Care Physician: Name: Dr Camarena Psychiatrist: Name: Dr Delacruz Date of Appointment: May 18, 2017 Time of Appointment: 2:00pm Therapist: Name: ALEJANDRO Christianson Date of Appointment: May 10, 2017 Time of Appointment: 1:00pm [employer]inkling Truck Driver: Name: None Visit Code E&M Code: 00459 Inventory Assets Strengths: Support of family, willingness to engage in treatment Needs: To abstain from alcohol at this time Risk Factors Assessment : Yes /single/: Yes Higher / Fall in social status: No Access to guns: Yes (daughter has guns, but locked) Health problems: Yes Mental Health Diagnoses: Yes Substance use disorders: No Previous attempt: No Family history of suicide: Yes Previous psychiatric stay: Yes Hopelessness: Yes Smoker: Yes Protective Factors Assessment : No Responsible for young children: No Employed: No Stable relationships: Yes Supportive family: Yes Good rapport with provider: Yes Data Vital Signs Last 24 Hrs: Date Time Temp Pulse Resp B/P (MAP) Pulse Ox O2 Delivery O2 Flow Rate FiO2 05/05/17 06:44 36.8 56 16 111/68 64 101/66 Meds Administered Last 24 Hrs: Meds Administered (Past 24Hrs) Medications (Trade) Dose Ordered Sig/Sharmin Route Start Time Stop Time Status Last Admin Dose Admin Escitalopram Oxalate (Lexapro Tab) 15 mg QAM PO 05/04/17 09:00 06/01/17 08:59 05/05/17 08:59 15 MG Lab Results Last 24 Hrs: Last 24 Hours Test 05/04/17 12:11 05/04/17 17:10 05/04/17 21:26 05/05/17 08:01 Bedside Glucose 229 mg/dl 268 mg/dl 425 mg/dl 60 mg/dl Test 05/05/17 08:29 Bedside Glucose 102 mg/dl Problem Qualifiers (1) Diabetes mellitus: Diabetes mellitus complication status: with unspecified complications 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
--- NOTE | 2017-05-05 13:34 | Pharmacy Progress Note ---
Glycemic Control Progress Note Date of Service May 05, 2017. Scope Glycemic Pharmacist consulted for glycemic control to write orders per [facility] inpatient glycemic control protocol. Objective Accuchecks BSG (last 24hrs): Test 05/04/17 17:10 05/04/17 21:26 05/05/17 08:01 05/05/17 08:29 Bedside Glucose 268 mg/dl (70-90) 425 mg/dl (70-90) 60 mg/dl (70-90) 102 mg/dl (70-90) Test 05/05/17 12:50 Bedside Glucose 159 mg/dl (70-90) Recent Pertinent Medications Currently ordered: Basal Insulin: Lantus SQ Q HS per the following scale: -14U for BSG 120-180 -15U for BSG 181-225 -16U for BSG 226-280 -17U for BSG 281 or greater Correctional Insulin: Novolog SQ ACHS Correction Factor: 30 mg/dL/unit Goal Range: Low 110 - High 140 mg/dL Prandial Insulin: 1 unit per 8 grams CHO's consumed w/ meals Risk Factors for Insulin Resistance: * Diet: ordered Type 2 DM diet Outpatient Anti-Diabetic Meds see prior notes Assessment & Plan ASSESSMENT: * See progress note from 05/01/17 for more background info * Patient is currently receiving an average of 52 units of insulin per day * 17 units of basal insulin * 35 units of prandial/correctional insulin * BSGs ranging 76-425 mg/dl over the past 24hrs * Changes needed to insulin regimen: * AM Fasting BSG = 60 mg/dl. This is below goal range for patient based on inpatient targets and co-morbidities. This is likely due to her highest BSG of the day being at bedtime - she gets a large dose of correctional insulin in addition to higher dose of Lantus at bedtime * Post-prandial BSGs are elevated/BSGs rise throughout the day therefore need to tighten CF/CR * Hopefully by tightening her Novolog through the day and loosening her bedtime Novolog dose will prevent hypoglycemia in the morning * Nursing called last evening to report patient snacking/eating carbs which only further complicates the picture PLAN FOR INPATIENT GLYCEMIC CONTROL: * Continue HS Lantus dose of: * 14U FOR BLOOD SUGAR 120-180 * 15U FOR BLOOD SUGAR 181-225 * 16U FOR BLOOD SUGAR 226-280 * 17U FOR BLOOD SUGAR 281 OR GREATER * Tighten Novolog SQ AC * correction factor 25 mg/dl/unit * carb ratio 1 unit per 7 grams CHO consumed * goal range Low 110 mg/dL - High 140 mg/dL * Loosen Novolog SQ HS * Correction factor 40 mg/dl/unit * Carb ratio 1 units per 15 grams CHO consumed * goal range Low 120 -high 160 mg/dL * Please note that the plan above was derived based on current level of insulin resistance and hospital stress. These recommendations are appropriate for inpatient admission only. Plan of care upon discharge will need to be reassessed to avoid potential outpatient hypo/hyperglycemia. Thank you.
[2017-05-05] MEDS: INSULIN GLARGINE SOLOSTAR 100 UNITS/ML 3 ML PEN SC SCH (20:50)
[2017-05-06 06:48] VITALS: BP_SYST 101; BP_SYST 88; BP_DIAS 57; BP_DIAS 62; PULSE 56; PULSE 59; TEMP 36.3
[2017-05-06] MEDS: LEVOTHYROXINE 112 MCG TAB PO SCH (07:54)
[2017-05-06] MEDS: ASPIRIN 81 MG ECTAB PO SCH (08:38)
[2017-05-06] MEDS: ESCITALOPRAM OXALATE 10 MG TAB PO SCH (08:38)
[2017-05-06] MEDS: PRAVASTATIN SOD 20 MG TAB PO SCH (08:39)
[2017-05-06] MEDS: LISINOPRIL 10 MG TAB PO SCH (08:39)
[2017-05-06] MEDS: BuPROPion SR 100 MG TABCR PO SCH (08:39)
[2017-05-06] MEDS: CLONAZEPAM 0.5 MG TAB PO PRN ×2 (08:40→17:48)
[2017-05-06] MEDS: NICOTINE 14 MG/24 HR TDSY TD SCH (08:44)
[2017-05-06] MEDS: INSULIN ASPART 100 UNITS/ML 3 ML PEN SC SCH ×4 (09:58→21:54)
[2017-05-06] MEDS: hydrOXYzine HCL 25 MG TAB PO PRN ×2 (10:53→21:55)
--- NOTE | 2017-05-06 12:57 | Psychiatric Progress Notes ---
Progress Note Date of Service May 06, 2017. Interval History 61-year-old woman with depression and anxiety, admitted voluntarily with suicidality. She has been experiencing nausea vomiting and diarrhea since starting on Paxil 3 weeks ago and so we will discontinue this in favor of another trial of an SSRI. She has been on only Wellbutrin in the past. We will start Lexapro 5 mg daily increasing to 10 mg tomorrow. We will continue Wellbutrin 200 mg daily. We will also send her liquid stools for culture and C. difficile to rule out any infection but I suspect that her GI condition is related to the Paxil which she started at the same time. She has been using Xanax as an outpatient but we will convert this to Klonopin for its longer half life. Hopefully we will be able to discontinue this over time if she has a good response to an SSRI. We will provide nicotinic replacements, we will involve her family in her treatment at her request. We will coordinate with her outpatient providers. At this time however the patient requires inpatient mental health treatment due to the severity of her condition, and the risk for self-harm if discharged. Chief Complaint "[]". Subjective Patient was seen & assessed interval progress reviewed with Nursing. Staff report she requires encouragement to be out of bed and going to groups, as she asks for prns and retreats to bed when feeling anxious. She is getting hydroxyzine for anxiety and sleep, and clonazepam 1-2 times a day for anxiety. She had a family meeting with her daughter yesterday, agreed to stay with her initially after discharge, with a plan to return to her own home after about a week. She was encouraged to consider gradually returning to living independently, as in the past, she made an abrupt change and was overwhelmed. She had a lot of anticipatory fears, talking about all the work that needed to be done in her home, and her wishes to sell the home and move closer to her daughter, but concerns that she would not have the financial means to do that. She talked about her multiple losses, including the of her 9 years ago and then the of her boyfriend who was living with her. Today, she states that she is feeling better, as she has been less anxious, and mood has improved a bit. She thinks medications are helping, and is trying hard to stay out of bed and active during the day. She notes this is very difficult for her, especially in the mornings, as she wakes up feeling anxious and overwhelmed and would like to isolate in bed. She had agreed to work on a list of activities she can do at home, but admits that she did not do that, and lists a lot of things that she cannot do because she lives so remotely. She states that she is still "undecided about a lot of different things," saying that she know she needs to get back to her own house, but is anxious about doing so, and thinks it is going to be even more difficult for her because she has been staying with her daughter for the past 2 months. She notes she does not like being alone, and [place] where there is not a lot to do. She states her diarrhea has resolved, she is feeling a little bit more energized, but continues to feel easily overwhelmed, and cannot contract for safety outside the hospital. She talked about her boyfriend, who is 15 years older than her, and says she is not sure what she wants to do with respect to the relationship, as she is worried about him dying and does not want to go through that again, but also does not want to be alone. She notes she has been avoiding him and has not spoken to him in 6 weeks. Sleep Information Total Hours of Sleep: 7.50 Meal Information Percent of Breakfast Consumed: 50 Percent of Lunch Consumed: 100 Percent of Dinner Consumed: 100 Mental Status Exam During interview pt is: alert and oriented, cooperative Appearance: appropriately dressed, appropriately groomed Eye contact is: good Motor behavior is: steady gait & station, no abnormal motor movements Speech: normal in rate, rhythm & volume Affect: mood congruent, depressed, other (slightly more reactive) Mood is: anxious, other ("a little bit better") Thought process: goal directed Thought content: reality based without delusions Suicidal thought are: denied Homicidal thoughts are: denied Hallucinations: denies auditory, denies visual Cognition: memory grossly intact, attention grossly intact, language grossly intact Intelligence estimated to be: average Insight: impaired Judgement: impaired Impression Mood and anxiety are improving, although she still does not feel ready to leave the hospital. Lexapro increased to 15 mg, and she continues to use when necessary several times daily for anxiety. She should be encouraged to stay out of bed in the day, in order to improve the quality of sleep at HS. She was given her an assignment to make a list of activities that she is willing to do with her daughter when daughter sees that she is isolating and inactive, and also at home when she returns to living alone, but has not yet worked on this. This could be incorporated into her discharge safety plan. Although without acute SI, she is nonfunctional without the structure of the milieu and support of staff, and requires ongoing inpatient treatment. Plan (1) Major depressive disorder, recurrent severe without psychotic features 05/01 - DC Paxil due to GI complaints -Start Lexapro 5 mg daily increasing to 10 mg tomorrow - Every 15 minute checks for safety - Obtain outpatient records from an coordinate care with current providers -Encourage participation in group and individual counseling- - Assist the patient to explore healthy coping strategies - Family meeting 05/02 - Continue current meds - Arrange family meeting 05/03 - Increase escitalopram to 15 mg daily for tomorrow. - Patient encouraged to utilize her when necessary's, including clonazepam and hydroxyzine, for sleep and anxiety. 05/04 - Continue current medications, and continue to encourage the patient to be out of bed and participating in treatment during the day. - Work on behavioral techniques for managing anxiety. - Family meeting with daughter today. 05/05 - Continue current meds - Tasked to make a list of activities she was willing to engage in at home. 05/06 - Continue escitalopram 15 mg daily. - Encourage patient to be out of bed during the day, and to work on her discharge safety plan and a schedule/list of activities to engage in at home (2) Tobacco use disorder 05/01 -Encourage the patient to cut down or consider quitting - Will provide nicotinic patch 14 mg daily as well as Nicorette gum one every 1 hour when necessary for nicotine withdrawal (3) Diarrhea 05/01 - Stool for cultures and C. difficile - Suspect this may be a side effect to the Paxil. See medication plan above 05/02 - No stool samples yet 102 - Patient informed of negative C. difficile results. Stool shiga toxin and cultures still pending. (4) Diabetes mellitus 05/01 - Continue patient's home regimen of NovoLog and Lantus insulins - BS cheese before meals and at bedtime - Will request a consult with the diabetic pharmacist for management (5) HTN (hypertension) 05/01 - Continue home medications - Monitor BP's - Encourage exercise- (6) Hypothyroidism 05/02 - TSH slightly elevated. Will obtain a free T4 - normal at 1.10. Discharge / Aftercare Planning Primary Care Physician: Name: Dr Camarena Psychiatrist: Name: Dr Delacruz Date of Appointment: May 18, 2017 Time of Appointment: 2:00pm Therapist: Name: ALEJANDRO Christianson Date of Appointment: May 10, 2017 Time of Appointment: 1:00pm Account Group Supervisor: Name: None Visit Code E&M Code: 24905 Inventory Assets Strengths: Support of family, willingness to engage in treatment Needs: To abstain from alcohol at this time Risk Factors Assessment : Yes /single/: Yes Higher / Fall in social status: No Access to guns: Yes (daughter has guns, but locked) Health problems: Yes Mental Health Diagnoses: Yes Substance use disorders: No Previous attempt: No Family history of suicide: Yes Previous psychiatric stay: Yes Hopelessness: Yes Smoker: Yes Protective Factors Assessment : No Responsible for young children: No Employed: No Stable relationships: Yes Supportive family: Yes Good rapport with provider: Yes Data Vital Signs Last 24 Hrs: Date Time Temp Pulse Resp B/P (MAP) Pulse Ox O2 Delivery O2 Flow Rate FiO2 05/06/17 06:48 36.3 56 16 88/57 59 101/62 Meds Administered Last 24 Hrs: Meds Administered (Past 24Hrs) Medications (Trade) Dose Ordered Sig/Sharmin Route Start Time Stop Time Status Last Admin Dose Admin Insulin Aspart (novoLOG ASPART) SLIDING SCALE AC SC 05/05/17 17:15 06/04/17 17:14 05/06/17 09:58 4 UNITS Insulin Aspart (novoLOG ASPART) SLIDING SCALE HS SC 05/05/17 22:00 06/04/17 21:59 05/05/17 20:54 4 UNITS Lab Results Last 24 Hrs: Last 24 Hours Test 05/05/17 12:50 05/05/17 16:58 05/05/17 20:19 05/06/17 07:55 Bedside Glucose 159 mg/dl 197 mg/dl 122 mg/dl 154 mg/dl Problem Qualifiers (1) Diabetes mellitus: Diabetes mellitus complication status: with unspecified complications 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
[2017-05-06] MEDS: INSULIN GLARGINE SOLOSTAR 100 UNITS/ML 3 ML PEN SC SCH (21:50)
[2017-05-07 06:43] VITALS: BP_SYST 101; BP_SYST 98; BP_DIAS 65; BP_DIAS 66; PULSE 58; PULSE 65; TEMP 36.8
[2017-05-07] MEDS: INSULIN ASPART 100 UNITS/ML 3 ML PEN SC SCH ×4 (08:00→21:32)
[2017-05-07] MEDS: CLONAZEPAM 0.5 MG TAB PO PRN ×2 (09:18→18:16)
[2017-05-07] MEDS: PRAVASTATIN SOD 20 MG TAB PO SCH (09:19)
[2017-05-07] MEDS: LISINOPRIL 10 MG TAB PO SCH (09:19)
[2017-05-07] MEDS: ESCITALOPRAM OXALATE 10 MG TAB PO SCH (09:19)
[2017-05-07] MEDS: LEVOTHYROXINE 112 MCG TAB PO SCH (09:19)
[2017-05-07] MEDS: ASPIRIN 81 MG ECTAB PO SCH (09:19)
[2017-05-07] MEDS: BuPROPion SR 100 MG TABCR PO SCH (09:19)
[2017-05-07] MEDS: NICOTINE 14 MG/24 HR TDSY TD SCH (09:20)
--- NOTE | 2017-05-07 09:22 | Pharmacy Progress Note ---
Glycemic Control Progress Note Date of Service May 07, 2017. Scope Glycemic Pharmacist consulted for glycemic control to write orders per [facility] inpatient glycemic control protocol. Objective Accuchecks BSG (last 24hrs): Test 05/06/17 12:23 05/06/17 17:14 05/06/17 20:36 Bedside Glucose 187 mg/dl (70-90) 84 mg/dl (70-90) 180 mg/dl (70-90) Recent Pertinent Medications The patient is currently receiving: * HS Lantus dose of: * 14U FOR BLOOD SUGAR 120-180 * 15U FOR BLOOD SUGAR 181-225 * 16U FOR BLOOD SUGAR 226-280 * 17U FOR BLOOD SUGAR 281 OR GREATER * Novolog SQ AC * correction factor 25 mg/dl/unit * carb ratio 1 unit per 7 grams CHO consumed * goal range Low 110 mg/dL - High 140 mg/dL * Novolog SQ HS * Correction factor 40 mg/dl/unit * Carb ratio 1 units per 15 grams CHO consumed * goal range Low 120 -high 160 mg/dL Assessment & Plan ASSESSMENT: * See progress note from 05/01 for more background info, in short: * Pt receiving SQ basal bolus insulin regimen for hyperglycemia secondary to baseline TYPE 1 DM, admission to [facility] for depressive episode * Patient is currently receiving an average of 35 units of insulin per day * 14 units of basal insulin * 21 units of prandial/correctional insulin * BSGs ranging 37 - 187 mg/dl over the past 24hrs (BSG of 37mg/dl was just called in to me in pharmacy by RN) * Changes needed to insulin regimen: * AM Fasting BSG = 37 mg/dl. Patient's BSG has been dropping overnight during inpatient stay, but did not two nights ago after we changed the CF/CR at HS. Then it did drop overnight this past night from 180mg/dl at HS (pt was given 3 units Novolog for 33 grams CHO and for correction). This is a hypoglycemic episode therefore I will decrease Lantus AND discontinue CR at HS to prevent further hypoglycemic episodes. * Post-prandial BSGs are in range therefore no changes needed to CF/CR except eliminating CR at bedtime to prevent BSG from dropping overnight. * Additional notes / comments: * Nurse notes pt not eating as she does at home, likely contributing to the hypoglycemia. PLAN FOR INPATIENT GLYCEMIC CONTROL: * DECREASE HS Lantus dose to: * 12U FOR BLOOD SUGAR 120-180 * 13U FOR BLOOD SUGAR 181-225 * 14U FOR BLOOD SUGAR 226-280 * 15U FOR BLOOD SUGAR 281 OR GREATER * Continue Novolog SQ AC * correction factor 25 mg/dl/unit * carb ratio 1 unit per 7 grams CHO consumed * goal range Low 110 mg/dL - High 140 mg/dL * Novolog SQ HS * Continue Correction factor 40 mg/dl/unit * DISCONTINUE Carb ratio * goal range Low 120 -high 160 mg/dL * Please note that the plan above was derived based on current level of insulin resistance and hospital stress. These recommendations are appropriate for inpatient admission only. Plan of care upon discharge will need to be reassessed to avoid potential outpatient hypo/hyperglycemia. Thank you.
[2017-05-07] MEDS: hydrOXYzine HCL 25 MG TAB PO PRN ×2 (10:49→21:36)
--- NOTE | 2017-05-07 11:50 | Psychiatric Progress Notes ---
Progress Note Date of Service May 07, 2017. Interval History 61-year-old woman with depression and anxiety, admitted voluntarily with suicidality. She has been experiencing nausea vomiting and diarrhea since starting on Paxil 3 weeks ago and so we will discontinue this in favor of another trial of an SSRI. She has been on only Wellbutrin in the past. We will start Lexapro 5 mg daily increasing to 10 mg tomorrow. We will continue Wellbutrin 200 mg daily. We will also send her liquid stools for culture and C. difficile to rule out any infection but I suspect that her GI condition is related to the Paxil which she started at the same time. She has been using Xanax as an outpatient but we will convert this to Klonopin for its longer half life. Hopefully we will be able to discontinue this over time if she has a good response to an SSRI. We will provide nicotinic replacements, we will involve her family in her treatment at her request. We will coordinate with her outpatient providers. At this time however the patient requires inpatient mental health treatment due to the severity of her condition, and the risk for self-harm if discharged. Chief Complaint "Today is a bad day.". Subjective Patient was seen & assessed interval progress reviewed with Treatment Team. The patient has been in bed most of the morning. Blood sugars were low this AM , 49 then in the 90's after OJ. She admits to feeling depressed, fearing that her depression isn't going to get any better. She says that she is worrying about going home next week, thinking that she won't be able to keep herself going. Is thinking that she may not want to go back to her daughters, saying that in their efforts to make her come to the hospital, some unpleasant things were said ie that she was selfish, not trying to get better. I ask about the assignment her daughter gave her to reach out by phone to some one person in order to reconnect, but she says that she hasn't and finds reasons not to. She is aware, however, that her sister in law has asked her to call her to check in. WE talk about seeing today in the context of 'two steps forward and one step back', which she is able to relate to. She remains somatically focused talking about how ill she has felt over recent months, and uses physical complaints to justify her retreat and isolation in her darkened room. She denies SI, but feels hopeless today that things will change. Review of Systems Constitutional: + weakness (with low sugars), + fatigue ENT: No hearing loss, No unusual epistaxis, No nasal symptoms, No sore throat, No tinnitus, No dental problems, No trouble swallowing, No problem reported Respiratory: No cough, No sputum, No wheezing, No shortness of breath, No dyspnea on exertion, No dyspnea at rest, No hemoptysis, No problem reported Cardiovascular: No chest pain, No orthopnea, No PND, No edema, No claudication , No palpitations, No problem reported Abdomen: No pain, No nausea, No vomiting, No diarrhea, No constipation, No GI bleeding, No problem reported Musculoskeletal: No joint pain, No muscle pain, No swelling, No calf pain, No problem reported Neurologic: No memory loss, No paralysis, No weakness, No numbness/tingling, No vertigo, No balance problems, No problem reported Psychiatric: + depression symptoms, + anxiety Integumentary: No rash, No itch, No new/changing skin lesions, No color change , No bleeding, No problem reported Sleep Information Total Hours of Sleep: 6.50 Meal Information Percent of Breakfast Consumed: 25 Percent of Lunch Consumed: 75 Percent of Dinner Consumed: 95 Mental Status Exam During interview pt is: alert and oriented, cooperative Appearance: appropriately dressed, appropriately groomed Eye contact is: good Motor behavior is: steady gait & station, no abnormal motor movements Speech: normal in rate, rhythm & volume Affect: mood congruent, depressed, other (slightly more reactive) Mood is: depressed, anxious Thought process: goal directed Thought content: preoccupation (with somatic issues,), reality based without delusions Suicidal thought are: denied Homicidal thoughts are: denied Hallucinations: denies auditory, denies visual Cognition: memory grossly intact, attention grossly intact, language grossly intact Intelligence estimated to be: average Insight: impaired Judgement: impaired Impression Having a bad day, feels hopeless, and is resisting all efforts to get her unstuck from her self imposed isolation. She has not been willing to see through any task that has been assigned to her. We again talk about the need for action first, feelings second, not waiting to feel better before making changes. Intellectually she can see it, but is unable to motivate herself to act. Will increase Lexapro to 20 mg. daily and increase Wellbutrin to XL 300 mg. daily, with caution to accelerating her anxiety. Plan (1) Major depressive disorder, recurrent severe without psychotic features 05/01 - DC Paxil due to GI complaints -Start Lexapro 5 mg daily increasing to 10 mg tomorrow - Every 15 minute checks for safety - Obtain outpatient records from an coordinate care with current providers -Encourage participation in group and individual counseling- - Assist the patient to explore healthy coping strategies - Family meeting 05/02 - Continue current meds - Arrange family meeting 05/03 - Increase escitalopram to 15 mg daily for tomorrow. - Patient encouraged to utilize her when necessary's, including clonazepam and hydroxyzine, for sleep and anxiety. 05/04 - Continue current medications, and continue to encourage the patient to be out of bed and participating in treatment during the day. - Work on behavioral techniques for managing anxiety. - Family meeting with daughter today. 05/05 - Continue current meds - Tasked to make a list of activities she was willing to engage in at home. 05/06 - Continue escitalopram 15 mg daily. - Encourage patient to be out of bed during the day, and to work on her discharge safety plan and a schedule/list of activities to engage in at home 05/07 - Increase Lexapro to 20 mg. daily - Increase WEllbutrin to XL 300 mg. daily (2) Tobacco use disorder 05/01 -Encourage the patient to cut down or consider quitting - Will provide nicotinic patch 14 mg daily as well as Nicorette gum one every 1 hour when necessary for nicotine withdrawal (3) Diarrhea 05/01 - Stool for cultures and C. difficile - Suspect this may be a side effect to the Paxil. See medication plan above 05/02 - No stool samples yet 102 - Patient informed of negative C. difficile results. Stool shiga toxin and cultures still pending. (4) Diabetes mellitus 05/01 - Continue patient's home regimen of NovoLog and Lantus insulins - BS cheese before meals and at bedtime - Will request a consult with the diabetic pharmacist for management (5) HTN (hypertension) 05/01 - Continue home medications - Monitor BP's - Encourage exercise- (6) Hypothyroidism 05/02 - TSH slightly elevated. Will obtain a free T4 - normal at 1.10. Discharge / Aftercare Planning Primary Care Physician: Name: Dr Camarena Psychiatrist: Name: Dr Delacruz Date of Appointment: May 18, 2017 Time of Appointment: 2:00pm Therapist: Name: ALEJANDRO Christianson Date of Appointment: May 10, 2017 Time of Appointment: 1:00pm Rotor Casting Machine Operator: Name: None Visit Code E&M Code: 75131 Inventory Assets Strengths: Support of family, willingness to engage in treatment Needs: To abstain from alcohol at this time Risk Factors Assessment : Yes /single/: Yes Higher / Fall in social status: No Access to guns: Yes (daughter has guns, but locked) Health problems: Yes Mental Health Diagnoses: Yes Substance use disorders: No Previous attempt: No Family history of suicide: Yes Previous psychiatric stay: Yes Hopelessness: Yes Smoker: Yes Protective Factors Assessment : No Responsible for young children: No Employed: No Stable relationships: Yes Supportive family: Yes Good rapport with provider: Yes Data Vital Signs Last 24 Hrs: Date Time Temp Pulse Resp B/P (MAP) Pulse Ox O2 Delivery O2 Flow Rate FiO2 05/07/17 06:43 36.8 58 16 98/65 65 101/66 Meds Administered Last 24 Hrs: Meds Administered (Past 24Hrs) Medications (Trade) Dose Ordered Sig/Sharmin Route Start Time Stop Time Status Last Admin Dose Admin Insulin Aspart (novoLOG ASPART) SLIDING SCALE AC SC 05/05/17 17:15 06/04/17 17:14 05/06/17 17:47 5 UNITS Insulin Aspart (novoLOG ASPART) SLIDING SCALE HS SC 05/05/17 22:00 06/04/17 21:59 05/06/17 21:54 3 UNITS Lab Results Last 24 Hrs: Last 24 Hours Test 05/06/17 12:23 05/06/17 17:14 05/06/17 20:36 Bedside Glucose 187 mg/dl 84 mg/dl 180 mg/dl Problem Qualifiers (1) Diabetes mellitus: Diabetes mellitus complication status: with unspecified complications Diabetes mellitus director long term care insulin use: with nursing home use
[2017-05-07 16:27] VITALS: Ht 167.6 cm; Wt 64.5 kg
[2017-05-07] MEDS: INSULIN GLARGINE SOLOSTAR 100 UNITS/ML 3 ML PEN SC SCH (21:27)
[2017-05-08 06:37] VITALS: BP_SYST 110; BP_SYST 115; BP_DIAS 66; BP_DIAS 71; PULSE 57; PULSE 65; TEMP 36.8
[2017-05-08] MEDS: LEVOTHYROXINE 112 MCG TAB PO SCH (09:37)
[2017-05-08] MEDS: ASPIRIN 81 MG ECTAB PO SCH (09:38)
[2017-05-08] MEDS: BuPROPion XL 300 MG TABCR PO SCH (09:39)
[2017-05-08] MEDS: PRAVASTATIN SOD 20 MG TAB PO SCH (09:39)
[2017-05-08] MEDS: ESCITALOPRAM OXALATE 20 MG TAB PO SCH (09:39)
[2017-05-08] MEDS: NICOTINE 14 MG/24 HR TDSY TD SCH (09:40)
[2017-05-08] MEDS: LISINOPRIL 10 MG TAB PO SCH (09:40)
[2017-05-08] MEDS: INSULIN ASPART 100 UNITS/ML 3 ML PEN SC SCH ×4 (09:41→22:00)
[2017-05-08] MEDS: CLONAZEPAM 0.5 MG TAB PO PRN (09:43)
--- NOTE | 2017-05-08 12:50 | Psychiatric Progress Notes ---
Progress Note Date of Service May 08, 2017. Interval History 61-year-old woman with depression and anxiety, admitted voluntarily with suicidality. She has been experiencing nausea vomiting and diarrhea since starting on Paxil 3 weeks ago and so we will discontinue this in favor of another trial of an SSRI. She has been on only Wellbutrin in the past. We will start Lexapro 5 mg daily increasing to 10 mg tomorrow. We will continue Wellbutrin 200 mg daily. We will also send her liquid stools for culture and C. difficile to rule out any infection but I suspect that her GI condition is related to the Paxil which she started at the same time. She has been using Xanax as an outpatient but we will convert this to Klonopin for its longer half life. Hopefully we will be able to discontinue this over time if she has a good response to an SSRI. We will provide nicotinic replacements, we will involve her family in her treatment at her request. We will coordinate with her outpatient providers. At this time however the patient requires inpatient mental health treatment due to the severity of her condition, and the risk for self-harm if discharged. Chief Complaint "Better today". Subjective Patient was seen & assessed interval progress reviewed with Nursing. Staff report she had a difficult day yesterday, was more anxious and got Klonopin and Vistaril. Today she feels a bit better, is less anxious, and has been up and going to groups. Her Wellbutrin and Lexapro were both increased today. She is going to groups and feels they've been helping. She is worried about returning home and "going back to the same things I was doing before." She typically has a hard time getting up in the mornings and will stay in bed all day, and isn't sure how to break that cycle. She had not gone to get her mail in weeks, and had been neglecting things, including bills. She will be staying with her daughter and her initially. She says they told her she "wasn't trying to help myself, which I guess I wasn't." Her diarrhea has resolved completely with going off the Paxil, and she denies side effects from current meds. Sleep Information Total Hours of Sleep: 6.25 Meal Information Percent of Breakfast Consumed: 50 Percent of Lunch Consumed: 75 Percent of Dinner Consumed: 100 Mental Status Exam During interview pt is: alert and oriented, cooperative Appearance: appropriately dressed, appropriately groomed Eye contact is: good Motor behavior is: steady gait & station, no abnormal motor movements Speech: normal in rate, rhythm & volume Affect: mood congruent, depressed, other (brighter at times and reactive) Mood is: other ("a little better") Thought process: goal directed Thought content: reality based without delusions Suicidal thought are: denied Homicidal thoughts are: denied Hallucinations: denies auditory, denies visual Cognition: memory grossly intact, attention grossly intact, language grossly intact Intelligence estimated to be: average Insight: impaired Judgement: impaired Impression Improved today after a difficult day yesterday. Increased Lexapro to 20 mg. and Wellbutrin to XL 300 mg. today. Plan (1) Major depressive disorder, recurrent severe without psychotic features 05/01 - DC Paxil due to GI complaints -Start Lexapro 5 mg daily increasing to 10 mg tomorrow - Every 15 minute checks for safety - Obtain outpatient records from an coordinate care with current providers -Encourage participation in group and individual counseling- - Assist the patient to explore healthy coping strategies - Family meeting 05/02 - Continue current meds - Arrange family meeting 05/03 - Increase escitalopram to 15 mg daily for tomorrow. - Patient encouraged to utilize her when necessary's, including clonazepam and hydroxyzine, for sleep and anxiety. 05/04 - Continue current medications, and continue to encourage the patient to be out of bed and participating in treatment during the day. - Work on behavioral techniques for managing anxiety. - Family meeting with daughter today. 05/05 - Continue current meds - Tasked to make a list of activities she was willing to engage in at home. 05/06 - Continue escitalopram 15 mg daily. - Encourage patient to be out of bed during the day, and to work on her discharge safety plan and a schedule/list of activities to engage in at home 05/07 - Increase Lexapro to 20 mg. daily - Increase Wellbutrin to XL 300 mg. daily 05/08 - Continue current meds - Work on discharge plans, including schedule/structure and safety plan. (2) Tobacco use disorder 05/01 -Encourage the patient to cut down or consider quitting - Will provide nicotinic patch 14 mg daily as well as Nicorette gum one every 1 hour when necessary for nicotine withdrawal (3) Diarrhea 05/01 - Stool for cultures and C. difficile - Suspect this may be a side effect to the Paxil. See medication plan above 05/02 - No stool samples yet 102 - Patient informed of negative C. difficile results. Stool shiga toxin and cultures still pending. (4) Diabetes mellitus 05/01 - Continue patient's home regimen of NovoLog and Lantus insulins - BS cheese before meals and at bedtime - Will request a consult with the diabetic pharmacist for management (5) HTN (hypertension) 05/01 - Continue home medications - Monitor BP's - Encourage exercise- (6) Hypothyroidism 05/02 - TSH slightly elevated. Will obtain a free T4 - normal at 1.10. Discharge / Aftercare Planning Primary Care Physician: Name: Dr Camarena Psychiatrist: Name: Dr Delacruz Date of Appointment: May 18, 2017 Time of Appointment: 2:00pm Therapist: Name: ALEJANDRO Christianson Date of Appointment: May 10, 2017 Time of Appointment: 1:00pm Care Management Specialist: Name: None Visit Code E&M Code: 94435 Inventory Assets Strengths: Support of family, willingness to engage in treatment Needs: To abstain from alcohol at this time Risk Factors Assessment : Yes /single/: Yes Higher / Fall in social status: No Access to guns: Yes (daughter has guns, but locked) Health problems: Yes Mental Health Diagnoses: Yes Substance use disorders: No Previous attempt: No Family history of suicide: Yes Previous psychiatric stay: Yes Hopelessness: Yes Smoker: Yes Protective Factors Assessment : No Responsible for young children: No Employed: No Stable relationships: Yes Supportive family: Yes Good rapport with provider: Yes Data Vital Signs Last 24 Hrs: Date Time Temp Pulse Resp B/P (MAP) Pulse Ox O2 Delivery O2 Flow Rate FiO2 05/08/17 06:37 36.8 57 16 110/66 65 115/71 Meds Administered Last 24 Hrs: Meds Administered (Past 24Hrs) Medications (Trade) Dose Ordered Sig/Sharmin Route Start Time Stop Time Status Last Admin Dose Admin Escitalopram Oxalate (Lexapro Tab) 20 mg QAM PO 05/08/17 09:00 06/07/17 08:59 05/08/17 09:39 20 MG Bupropion HCl (Wellbutrin-Xl Tab) 300 mg QAM PO 05/08/17 09:00 06/07/17 08:59 05/08/17 09:39 300 MG Lab Results Last 24 Hrs: Last 24 Hours Test 05/07/17 17:17 05/07/17 20:58 05/08/17 09:01 05/08/17 12:20 Bedside Glucose 199 mg/dl 293 mg/dl 186 mg/dl 115 mg/dl Problem Qualifiers (1) Diabetes mellitus: Diabetes mellitus complication status: with unspecified complications Diabetes mellitus 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
[2017-05-08] MEDS: hydrOXYzine HCL 25 MG TAB PO PRN (22:07)
[2017-05-08] MEDS: INSULIN GLARGINE SOLOSTAR 100 UNITS/ML 3 ML PEN SC SCH (22:10)
[2017-05-09 06:52] VITALS: BP_SYST 104; BP_SYST 113; BP_DIAS 69; BP_DIAS 75; PULSE 56; TEMP 36.3
--- NOTE | 2017-05-09 07:56 | Psychiatric Progress Notes ---
Progress Note Date of Service May 09, 2017. Interval History 61-year-old woman with depression and anxiety, admitted voluntarily with suicidality. She has been experiencing nausea vomiting and diarrhea since starting on Paxil 3 weeks ago and so we will discontinue this in favor of another trial of an SSRI. She has been on only Wellbutrin in the past. We will start Lexapro 5 mg daily increasing to 10 mg tomorrow. We will continue Wellbutrin 200 mg daily. We will also send her liquid stools for culture and C. difficile to rule out any infection but I suspect that her GI condition is related to the Paxil which she started at the same time. She has been using Xanax as an outpatient but we will convert this to Klonopin for its longer half life. Hopefully we will be able to discontinue this over time if she has a good response to an SSRI. We will provide nicotinic replacements, we will involve her family in her treatment at her request. We will coordinate with her outpatient providers. At this time however the patient requires inpatient mental health treatment due to the severity of her condition, and the risk for self-harm if discharged. Chief Complaint "Not so great". Subjective Patient was seen & assessed interval progress reviewed with Nursing. Staff report she had a good day yesterday, was out of bed and attending groups. Today , she reports she is having a bad day, slept poorly overnight, and feels anxious and "not well." She says she feels "nervous inside, shaky, sick to my stomach." She tried to get up and eat breakfast, but was only able to eat a piece of zayas and bite of toast. She took her morning meds as well as Klonopin , but says "I feel just as bad as I did 2 hours ago. His or some other medication I can take?" She has not tried any other coping skills, did not go to group this morning, or shower. She is resistant to encouragement to get out of bed, stating that she wants to stay in bed and released until lunchtime, take more medication for anxiety, and then will get up if she feels better. She does not feel able to even discuss discharge in her current condition. Sleep Information Total Hours of Sleep: 7.50 Meal Information Percent of Breakfast Consumed: 50 Percent of Lunch Consumed: 100 Percent of Dinner Consumed: 100 Mental Status Exam During interview pt is: alert and oriented, cooperative (partially, but refuses to get out of bed, shower or attend groups) Appearance: appropriately dressed, appropriately groomed Eye contact is: good Motor behavior is: no abnormal motor movements Speech: normal in rate, rhythm & volume Affect: mood congruent, depressed, anxious, constricted Mood is: other ("not so great") Thought process: goal directed Thought content: reality based without delusions Suicidal thought are: denied Homicidal thoughts are: denied Hallucinations: denies auditory, denies visual Cognition: memory grossly intact, attention grossly intact, language grossly intact Intelligence estimated to be: average Insight: impaired Judgement: impaired Impression Patient is having some good days, but continues to have days where she feels too anxious to get out of bed or participate in treatment. We've continued to titrate her medications, and she is now on Lexapro 20 mg. and Wellbutrin XL 300 mg. She should be encouraged to work on behavioral techniques for managing her anxiety, sticking to her daily routine, tending to ADLs, and attending and participating in groups, as we prepare for discharge. She tends to rely on medications and retreats to bed when she is feeling poorly, rather than trying to use her coping skills. Plan (1) Major depressive disorder, recurrent severe without psychotic features 05/01 - DC Paxil due to GI complaints -Start Lexapro 5 mg daily increasing to 10 mg tomorrow - Every 15 minute checks for safety - Obtain outpatient records from an coordinate care with current providers -Encourage participation in group and individual counseling- - Assist the patient to explore healthy coping strategies - Family meeting 05/02 - Continue current meds - Arrange family meeting 05/03 - Increase escitalopram to 15 mg daily for tomorrow. - Patient encouraged to utilize her when necessary's, including clonazepam and hydroxyzine, for sleep and anxiety. 05/04 - Continue current medications, and continue to encourage the patient to be out of bed and participating in treatment during the day. - Work on behavioral techniques for managing anxiety. - Family meeting with daughter today. 05/05 - Continue current meds - Tasked to make a list of activities she was willing to engage in at home. 05/06 - Continue escitalopram 15 mg daily. - Encourage patient to be out of bed during the day, and to work on her discharge safety plan and a schedule/list of activities to engage in at home 05/07 - Increase Lexapro to 20 mg. daily - Increase Wellbutrin to XL 300 mg. daily 05/08 - Continue current meds - Work on discharge plans, including schedule/structure and safety plan. 05/09 - Patient encouraged to get out of bed, shower, attend groups, and work on behavioral techniques for managing anxiety, but is resistant to this. (2) Tobacco use disorder 05/01 -Encourage the patient to cut down or consider quitting - Will provide nicotinic patch 14 mg daily as well as Nicorette gum one every 1 hour when necessary for nicotine withdrawal (3) Diarrhea 05/01 - Stool for cultures and C. difficile - Suspect this may be a side effect to the Paxil. See medication plan above 05/02 - No stool samples yet 05/03 - Patient informed of negative C. difficile results. Stool shiga toxin and cultures still pending. 05/09 - Diarrhea has resolved, and was most likely a side effect of paroxetine. Stool shiga toxin and cultures negative. (4) Diabetes mellitus 05/01 - Continue patient's home regimen of NovoLog and Lantus insulins - BS cheese before meals and at bedtime - Will request a consult with the diabetic pharmacist for management (5) HTN (hypertension) 05/01 - Continue home medications - Monitor BP's - Encourage exercise- (6) Hypothyroidism 05/02 - TSH slightly elevated. Will obtain a free T4 - normal at 1.10. Discharge / Aftercare Planning Primary Care Physician: Name: Dr Camarena Psychiatrist: Name: Dr Delacruz Date of Appointment: May 18, 2017 Time of Appointment: 2:00pm Therapist: Name: ALEJANDRO Christianson Date of Appointment: May 10, 2017 Time of Appointment: 1:00pm Coater: Name: None Visit Code E&M Code: 16649 Inventory Assets Strengths: Support of family, willingness to engage in treatment Needs: To abstain from alcohol at this time Risk Factors Assessment : Yes /single/: Yes Higher / Fall in social status: No Access to guns: Yes (daughter has guns, but locked) Health problems: Yes Mental Health Diagnoses: Yes Substance use disorders: No Previous attempt: No Family history of suicide: Yes Previous psychiatric stay: Yes Hopelessness: Yes Smoker: Yes Protective Factors Assessment : No Responsible for young children: No Employed: No Stable relationships: Yes Supportive family: Yes Good rapport with provider: Yes Data Vital Signs Last 24 Hrs: Date Time Temp Pulse Resp B/P (MAP) Pulse Ox O2 Delivery O2 Flow Rate FiO2 05/09/17 06:52 36.3 56 16 104/69 56 113/75 Meds Administered Last 24 Hrs: Meds Administered (Past 24Hrs) Medications (Trade) Dose Ordered Sig/Sharmin Route Start Time Stop Time Status Last Admin Dose Admin Escitalopram Oxalate (Lexapro Tab) 20 mg QAM PO 05/08/17 09:00 06/07/17 08:59 05/08/17 09:39 20 MG Bupropion HCl (Wellbutrin-Xl Tab) 300 mg QAM PO 05/08/17 09:00 06/07/17 08:59 05/08/17 09:39 300 MG Lab Results Last 24 Hrs: Last 24 Hours Test 05/08/17 09:01 05/08/17 12:20 05/08/17 17:15 05/08/17 20:42 Bedside Glucose 186 mg/dl 115 mg/dl 281 mg/dl 125 mg/dl Problem Qualifiers (1) Diabetes mellitus: Diabetes mellitus complication status: with unspecified complications 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
[2017-05-09] MEDS: CLONAZEPAM 0.5 MG TAB PO PRN ×2 (08:54→13:14)
[2017-05-09] MEDS: LEVOTHYROXINE 112 MCG TAB PO SCH (09:29)
[2017-05-09] MEDS: ESCITALOPRAM OXALATE 20 MG TAB PO SCH (09:30)
[2017-05-09] MEDS: ASPIRIN 81 MG ECTAB PO SCH (09:30)
[2017-05-09] MEDS: NICOTINE 14 MG/24 HR TDSY TD SCH (09:30)
[2017-05-09] MEDS: PRAVASTATIN SOD 20 MG TAB PO SCH (09:30)
[2017-05-09] MEDS: BuPROPion XL 300 MG TABCR PO SCH (09:30)
[2017-05-09] MEDS: LISINOPRIL 10 MG TAB PO SCH (09:30)
[2017-05-09] MEDS: INSULIN ASPART 100 UNITS/ML 3 ML PEN SC SCH ×4 (09:34→21:02)
[2017-05-09] MEDS: hydrOXYzine HCL 25 MG TAB PO PRN ×2 (11:32→22:45)
--- NOTE | 2017-05-09 15:28 | Pharmacy Progress Note ---
Glycemic Control Progress Note Date of Service May 09, 2017. Scope Glycemic Pharmacist consulted for glycemic control to write orders per [facility] inpatient glycemic control protocol. Objective Accuchecks BSG (last 24hrs): Test 05/08/17 17:15 05/08/17 20:42 05/09/17 08:45 05/09/17 11:35 Bedside Glucose 281 mg/dl (70-90) 125 mg/dl (70-90) 392 mg/dl (70-90) 274 mg/dl (70-90) Recent Pertinent Medications The patient is currently receiving: * HS Lantus dose of: * 12U FOR BLOOD SUGAR 120-180 * 13U FOR BLOOD SUGAR 181-225 * 14U FOR BLOOD SUGAR 226-280 * 15U FOR BLOOD SUGAR 281 OR GREATER * Novolog SQ AC * correction factor 25 mg/dl/unit * carb ratio 1 unit per 7 grams CHO consumed * goal range Low 110 mg/dL - High 140 mg/dL * Novolog SQ HS * Correction factor 40 mg/dl/unit * NO CARB RATIO * goal range Low 120 -high 160 mg/dL Assessment & Plan ASSESSMENT: * See progress note from 05/01 for more background info, in short: * Pt receiving SQ basal bolus insulin regimen for hyperglycemia secondary to baseline TYPE 1 DM, admission to [facility] for depressive episode * Patient is currently receiving an average of 39 units of insulin per day * 12 units of basal insulin * 27 units of prandial/correctional insulin * BSGs ranging 125-392 mg/dl over the past 24hrs * Changes needed to insulin regimen: * AM Fasting BSG = 392 mg/dl. Nurse reports patient had cereal overnight, causing hyperglycemia, therefore no changes at this time, will correct for with CF at breakfast. * No changes, as patient's eating has been unpredictable and want to prevent hypoglycemia. PLAN FOR INPATIENT GLYCEMIC CONTROL: * LANTUS SQ HS: * 12U FOR BLOOD SUGAR 120-180 * 13U FOR BLOOD SUGAR 181-225 * 14U FOR BLOOD SUGAR 226-280 * 15U FOR BLOOD SUGAR 281 OR GREATER * Continue Novolog SQ AC * correction factor 25 mg/dl/unit * carb ratio 1 unit per 7 grams CHO consumed * goal range Low 110 mg/dL - High 140 mg/dL * Novolog SQ HS * Continue Correction factor 40 mg/dl/unit * NO Carb ratio * goal range Low 120 -high 160 mg/dL * Please note that the plan above was derived based on current level of insulin resistance and hospital stress. These recommendations are appropriate for inpatient admission only. Plan of care upon discharge will need to be reassessed to avoid potential outpatient hypo/hyperglycemia. Thank you.
[2017-05-09] MEDS: INSULIN GLARGINE SOLOSTAR 100 UNITS/ML 3 ML PEN SC SCH (21:08)
[2017-05-10] MEDS ORDERED: INSULIN ASPART 100 UNITS/ML 3 ML PEN SC SCH (02:00)
[2017-05-10 06:52] VITALS: BP_SYST 101; BP_SYST 104; BP_DIAS 67; PULSE 51; PULSE 54; TEMP 36.6
[2017-05-10] MEDS: LEVOTHYROXINE 112 MCG TAB PO SCH (07:55)
[2017-05-10] MEDS: INSULIN ASPART 100 UNITS/ML 3 ML PEN SC SCH ×4 (08:00→21:32)
[2017-05-10] MEDS: LISINOPRIL 10 MG TAB PO SCH (09:11)
[2017-05-10] MEDS: ESCITALOPRAM OXALATE 20 MG TAB PO SCH (09:11)
[2017-05-10] MEDS: BuPROPion XL 300 MG TABCR PO SCH (09:11)
[2017-05-10] MEDS: ASPIRIN 81 MG ECTAB PO SCH (09:11)
[2017-05-10] MEDS: PRAVASTATIN SOD 20 MG TAB PO SCH (09:11)
[2017-05-10] MEDS: NICOTINE 14 MG/24 HR TDSY TD SCH (09:16)
--- NOTE | 2017-05-10 11:51 | Psychiatric Progress Notes ---
Progress Note Date of Service May 10, 2017. Interval History 61-year-old woman with depression and anxiety, admitted voluntarily with suicidality. She has been experiencing nausea vomiting and diarrhea since starting on Paxil 3 weeks ago and so we will discontinue this in favor of another trial of an SSRI. She has been on only Wellbutrin in the past. We will start Lexapro 5 mg daily increasing to 10 mg tomorrow. We will continue Wellbutrin 200 mg daily. We will also send her liquid stools for culture and C. difficile to rule out any infection but I suspect that her GI condition is related to the Paxil which she started at the same time. She has been using Xanax as an outpatient but we will convert this to Klonopin for its longer half life. Hopefully we will be able to discontinue this over time if she has a good response to an SSRI. We will provide nicotinic replacements, we will involve her family in her treatment at her request. We will coordinate with her outpatient providers. At this time however the patient requires inpatient mental health treatment due to the severity of her condition, and the risk for self-harm if discharged. Chief Complaint "I'm OK.". Subjective Patient was seen & assessed interval progress reviewed with Treatment Team. She admits that she has had an up and down course over the last few days. She relates some of it to her fluctuating sugars. Staff report that on her bad days she retreats to her bed in a darkened room. She reports having difficulty falling asleep last night, thinking about being awoken at 0200 for a blood sugar. She says that she did reach out to a friend by phone, as was asked. There is a second friend that has been trying to call her here without luck, but Lana says she isn't going to call her. She has not worked on a list of activites that she is willing to have her daughter push her to do (as was asked) , but says that she is thinking about a list of things that have to be done after discharge, like bills and tasks at her home in [place]. Today so far she is having an OK day, was up for breakfast, chatting with her roommate, but does not feel ready to discharge. She is hopeful to be ready by Wednesday, and to have her daughter pick her up. Review of Systems Constitutional: + fatigue ENT: No hearing loss, No unusual epistaxis, No nasal symptoms, No sore throat, No tinnitus, No dental problems, No trouble swallowing, No problem reported Respiratory: + cough (lessening) Cardiovascular: No chest pain, No orthopnea, No PND, No edema, No claudication , No palpitations, No problem reported Abdomen: No pain, No nausea, No vomiting, No diarrhea, No constipation, No GI bleeding, No problem reported Musculoskeletal: No joint pain, No muscle pain, No swelling, No calf pain, No problem reported Neurologic: No memory loss, No paralysis, No weakness, No numbness/tingling, No vertigo, No balance problems, No problem reported Psychiatric: + depression symptoms (variable) Integumentary: No rash, No itch, No new/changing skin lesions, No color change , No bleeding, No problem reported Sleep Information Total Hours of Sleep: 6.50 Meal Information Percent of Breakfast Consumed: 100 Percent of Lunch Consumed: 75 Percent of Dinner Consumed: 100 Mental Status Exam During interview pt is: alert and oriented, cooperative (partially, but refuses to get out of bed, shower or attend groups) Appearance: appropriately dressed, appropriately groomed Eye contact is: good Motor behavior is: no abnormal motor movements Speech: normal in rate, rhythm & volume Affect: mood congruent, depressed, anxious, constricted Mood is: other ("not so great") Thought process: goal directed Thought content: reality based without delusions Suicidal thought are: denied Homicidal thoughts are: denied Hallucinations: denies auditory, denies visual Cognition: memory grossly intact, attention grossly intact, language grossly intact Intelligence estimated to be: average Insight: poor Judgement: poor Impression The patient's progress has been variable, and on her bad days has not been able to change her behaviors at all and has retreated to bed. Diarrhea has resolved and seems likely was related to Paxil. Today is starting out as a good day and if she can put a few good days together she may be able to discharge on her chosen day of Wednesday. Appreciate the diabetic pharmacist's input. Plan (1) Major depressive disorder, recurrent severe without psychotic features 05/01 - DC Paxil due to GI complaints -Start Lexapro 5 mg daily increasing to 10 mg tomorrow - Every 15 minute checks for safety - Obtain outpatient records from an coordinate care with current providers -Encourage participation in group and individual counseling- - Assist the patient to explore healthy coping strategies - Family meeting 05/02 - Continue current meds - Arrange family meeting 05/03 - Increase escitalopram to 15 mg daily for tomorrow. - Patient encouraged to utilize her when necessary's, including clonazepam and hydroxyzine, for sleep and anxiety. 05/04 - Continue current medications, and continue to encourage the patient to be out of bed and participating in treatment during the day. - Work on behavioral techniques for managing anxiety. - Family meeting with daughter today. 05/05 - Continue current meds - Tasked to make a list of activities she was willing to engage in at home. 05/06 - Continue escitalopram 15 mg daily. - Encourage patient to be out of bed during the day, and to work on her discharge safety plan and a schedule/list of activities to engage in at home 05/07 - Increase Lexapro to 20 mg. daily - Increase Wellbutrin to XL 300 mg. daily 05/08 - Continue current meds - Work on discharge plans, including schedule/structure and safety plan. 05/09 - Patient encouraged to get out of bed, shower, attend groups, and work on behavioral techniques for managing anxiety, but is resistant to this. (2) Tobacco use disorder 05/01 -Encourage the patient to cut down or consider quitting - Will provide nicotinic patch 14 mg daily as well as Nicorette gum one every 1 hour when necessary for nicotine withdrawal (3) Diarrhea 05/01 - Stool for cultures and C. difficile - Suspect this may be a side effect to the Paxil. See medication plan above 05/02 - No stool samples yet 05/03 - Patient informed of negative C. difficile results. Stool shiga toxin and cultures still pending. 05/09 - Diarrhea has resolved, and was most likely a side effect of paroxetine. Stool shiga toxin and cultures negative. (4) Diabetes mellitus 05/01 - Continue patient's home regimen of NovoLog and Lantus insulins - BS cheese before meals and at bedtime - Will request a consult with the diabetic pharmacist for management (5) HTN (hypertension) 05/01 - Continue home medications - Monitor BP's - Encourage exercise- (6) Hypothyroidism 05/02 - TSH slightly elevated. Will obtain a free T4 - normal at 1.10. Discharge / Aftercare Planning Primary Care Physician: Name: Dr Camarena Psychiatrist: Name: Dr Delacruz Date of Appointment: May 18, 2017 Time of Appointment: 2:00pm Therapist: Name: ALEJANDRO Christianson Date of Appointment: May 10, 2017 Time of Appointment: 1:00pm Elastic Attacher Coverstitch: Name: Natalie Inventory Assets Strengths: Support of family, willingness to engage in treatment Needs: To abstain from alcohol at this time Risk Factors Assessment : Yes /single/: Yes Higher / Fall in social status: No Access to guns: Yes (daughter has guns, but locked) Health problems: Yes Mental Health Diagnoses: Yes Substance use disorders: No Previous attempt: No Family history of suicide: Yes Previous psychiatric stay: Yes Hopelessness: Yes Smoker: Yes Protective Factors Assessment : No Responsible for young children: No Employed: No Stable relationships: Yes Supportive family: Yes Good rapport with provider: Yes Data Vital Signs Last 24 Hrs: Date Time Temp Pulse Resp B/P (MAP) Pulse Ox O2 Delivery O2 Flow Rate FiO2 05/10/17 06:52 36.6 51 16 101/67 54 104/67 Meds Administered Last 24 Hrs: Meds Administered (Past 24Hrs) Medications (Trade) Dose Ordered Sig/Sharmin Route Start Time Stop Time Status Last Admin Dose Admin Insulin Aspart (novoLOG ASPART) SLIDING SCALE 0200 SC 05/10/17 02:00 05/10/17 02:01 DC 05/10/17 02:07 1 UNITS Lab Results Last 24 Hrs: Last 24 Hours Test 05/09/17 11:35 05/09/17 15:42 05/09/17 16:01 05/09/17 20:50 Bedside Glucose 274 mg/dl 35 mg/dl 97 mg/dl 532 mg/dl Test 05/10/17 01:58 Bedside Glucose 164 mg/dl Problem Qualifiers (1) Diabetes mellitus: Diabetes mellitus complication status: with unspecified complications Diabetes mellitus snf insulin use: with snf use
[2017-05-10] MEDS: CLONAZEPAM 0.5 MG TAB PO PRN (17:55)
[2017-05-10] MEDS: ACETAMINOPHEN 325 MG TAB PO PRN (18:37)
[2017-05-10] MEDS: INSULIN GLARGINE SOLOSTAR 100 UNITS/ML 3 ML PEN SC SCH (21:38)
[2017-05-10] MEDS: hydrOXYzine HCL 25 MG TAB PO PRN (21:51)
[2017-05-11 06:54] VITALS: BP_SYST 107; BP_SYST 108; BP_DIAS 60; BP_DIAS 70; PULSE 58; PULSE 59; TEMP 36.8
[2017-05-11] MEDS: ESCITALOPRAM OXALATE 20 MG TAB PO SCH (09:10)
[2017-05-11] MEDS: ASPIRIN 81 MG ECTAB PO SCH (09:10)
[2017-05-11] MEDS: PRAVASTATIN SOD 20 MG TAB PO SCH (09:10)
[2017-05-11] MEDS: LEVOTHYROXINE 112 MCG TAB PO SCH (09:10)
[2017-05-11] MEDS: BuPROPion XL 300 MG TABCR PO SCH (09:10)
[2017-05-11] MEDS: LISINOPRIL 10 MG TAB PO SCH (09:11)
[2017-05-11] MEDS: CLONAZEPAM 0.5 MG TAB PO PRN (09:11)
[2017-05-11] MEDS: NICOTINE 14 MG/24 HR TDSY TD SCH (09:14)
[2017-05-11] MEDS: INSULIN ASPART 100 UNITS/ML 3 ML PEN SC SCH ×4 (09:14→21:44)
--- NOTE | 2017-05-11 09:43 | Pharmacy Progress Note ---
Glycemic: Assessment & Plan Date of Service May 11, 2017. Assessment & Plan The patient is currently receiving ~40 units of insulin per day. BSGs ranging 70 - 286 mg/dl over the past 24hrs. * Basal insulin: Lantus 12-15 units every 24 hours given at bedtime based on BSG/degree of hyperglycemia * Correctional Insulin: Novolog Correction per scale AC Goal Range: Low 90 mg/dL - High 140 mg/dL Correction Factor: 25 mg/dL/unit (40 at bedtime) * Prandial insulin: Per carb ratio of 1 unit per 7 grams CHO consumed BSGs continue to improve, no changes needed to inpatient regimen at this time. Pharmacy will continue to monitor patient daily and write orders per [facility] inpatient glycemic control protocol. Thanks. * Please note that the plan above was derived based on current level of insulin resistance and hospital stress. These recommendations are appropriate for inpatient admission only. Plan of care upon discharge will need to be reassessed to avoid potential outpatient hypo/hyperglycemia.
--- NOTE | 2017-05-11 10:19 | Psychiatric Progress Notes ---
Progress Note Date of Service May 11, 2017. Interval History 61-year-old woman with depression and anxiety, admitted voluntarily with suicidality. She has been experiencing nausea vomiting and diarrhea since starting on Paxil 3 weeks ago and so we will discontinue this in favor of another trial of an SSRI. She has been on only Wellbutrin in the past. We will start Lexapro 5 mg daily increasing to 10 mg tomorrow. We will continue Wellbutrin 200 mg daily. We will also send her liquid stools for culture and C. difficile to rule out any infection but I suspect that her GI condition is related to the Paxil which she started at the same time. She has been using Xanax as an outpatient but we will convert this to Klonopin for its longer half life. Hopefully we will be able to discontinue this over time if she has a good response to an SSRI. We will provide nicotinic replacements, we will involve her family in her treatment at her request. We will coordinate with her outpatient providers. At this time however the patient requires inpatient mental health treatment due to the severity of her condition, and the risk for self-harm if discharged. Chief Complaint "I had anxiety first thing this morning.". Subjective Patient was seen & assessed interval progress reviewed with Treatment Team. Frannie Mclean PA-C observed with patient permission. The patient admits that she had a good day yesterday. She says that she attended all of the groups. Prior to this week, she didn't feel ready to go, but this week feels capable of returning home and returning quickly to her own home in [place], "I have a lot to do.". 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 She recognizes that she has been sleeping well here and wants to focus on getting good sleep at home too. She is thinking about getting back to walking her dog first thing in the AM when she returns home as well. She is requesting to get a prescription for a nicotine patch upon discharge, wanting to try to quit since she hasn't had a cigarette in 10 days. Her daughter is able to pick her up tomorrow and she is requesting discharge. She denies SI/HI. Did receive a prn for anxiety this AM. Her sugars continue to be labile. Review of Systems Constitutional: No fever, No chills, No sweats, No weight loss, No weakness, No fatigue, No problem reported ENT: No hearing loss, No unusual epistaxis, No nasal symptoms, No sore throat, No tinnitus, No dental problems, No trouble swallowing, No problem reported Respiratory: No cough, No sputum, No wheezing, No shortness of breath, No dyspnea on exertion, No dyspnea at rest, No hemoptysis, No problem reported Cardiovascular: No chest pain, No orthopnea, No PND, No edema, No claudication , No palpitations, No problem reported Abdomen: No pain, No nausea, No vomiting, No diarrhea, No constipation, No GI bleeding, No problem reported Musculoskeletal: No joint pain, No muscle pain, No swelling, No calf pain, No problem reported Neurologic: No memory loss, No paralysis, No weakness, No numbness/tingling, No vertigo, No balance problems, No problem reported Psychiatric: + anxiety Integumentary: No rash, No itch, No new/changing skin lesions, No color change , No bleeding, No problem reported Sleep Information Total Hours of Sleep: 6.50 Meal Information Percent of Breakfast Consumed: 90 Percent of Lunch Consumed: 80 Percent of Dinner Consumed: 50 Mental Status Exam During interview pt is: alert and oriented, cooperative Appearance: appropriately dressed, appropriately groomed Eye contact is: good Motor behavior is: no abnormal motor movements Speech: normal in rate, rhythm & volume Affect: mood congruent, depressed, blunted Mood is: anxious Thought process: goal directed Thought content: reality based without delusions Suicidal thought are: denied Homicidal thoughts are: denied Hallucinations: denies auditory, denies visual Cognition: memory grossly intact, attention grossly intact, language grossly intact Intelligence estimated to be: average Insight: poor Judgement: poor Impression Lana is feeling more capable and looking to discharge tomorrow. She is forward thinking, hoping to get back to work and to her own home in [place]. She continues to experience anxiety in the AM's and we have been challenging her not to retreat to bed, which is her default coping strategy. She plans to return to her daughter's home for a period of time after discharge, to see if she can maintain her improvements. If progress continues, will consider discharge tomorrow. Plan (1) Major depressive disorder, recurrent severe without psychotic features 05/01 - DC Paxil due to GI complaints -Start Lexapro 5 mg daily increasing to 10 mg tomorrow - Every 15 minute checks for safety - Obtain outpatient records from an coordinate care with current providers -Encourage participation in group and individual counseling- - Assist the patient to explore healthy coping strategies - Family meeting 05/02 - Continue current meds - Arrange family meeting 05/03 - Increase escitalopram to 15 mg daily for tomorrow. - Patient encouraged to utilize her when necessary's, including clonazepam and hydroxyzine, for sleep and anxiety. 05/04 - Continue current medications, and continue to encourage the patient to be out of bed and participating in treatment during the day. - Work on behavioral techniques for managing anxiety. - Family meeting with daughter today. 05/05 - Continue current meds - Tasked to make a list of activities she was willing to engage in at home. 05/06 - Continue escitalopram 15 mg daily. - Encourage patient to be out of bed during the day, and to work on her discharge safety plan and a schedule/list of activities to engage in at home 05/07 - Increase Lexapro to 20 mg. daily - Increase Wellbutrin to XL 300 mg. daily 05/08 - Continue current meds - Work on discharge plans, including schedule/structure and safety plan. 05/09 - Patient encouraged to get out of bed, shower, attend groups, and work on behavioral techniques for managing anxiety, but is resistant to this. 05/11 - Continue current meds - If progress continues, consider discharge tomorrow. (2) Tobacco use disorder 05/01 -Encourage the patient to cut down or consider quitting - Will provide nicotinic patch 14 mg daily as well as Nicorette gum one every 1 hour when necessary for nicotine withdrawal (3) Diarrhea 05/01 - Stool for cultures and C. difficile - Suspect this may be a side effect to the Paxil. See medication plan above 05/02 - No stool samples yet 05/03 - Patient informed of negative C. difficile results. Stool shiga toxin and cultures still pending. 05/09 - Diarrhea has resolved, and was most likely a side effect of paroxetine. Stool shiga toxin and cultures negative. (4) Diabetes mellitus 05/01 - Continue patient's home regimen of NovoLog and Lantus insulins - BS cheese before meals and at bedtime - Will request a consult with the diabetic pharmacist for management (5) HTN (hypertension) 05/01 - Continue home medications - Monitor BP's - Encourage exercise- (6) Hypothyroidism 05/02 - TSH slightly elevated. Will obtain a free T4 - normal at 1.10. Discharge / Aftercare Planning Primary Care Physician: Name: Dr Camarena Psychiatrist: Name: Dr Delacruz Date of Appointment: May 18, 2017 Time of Appointment: 2:00pm Therapist: Name: ALEJANDRO Christianson Date of Appointment: May 17, 2017 Time of Appointment: 1:00pm Insurance Investigator: Name: None Visit Code E&M Code: 95193 Inventory Assets Strengths: Support of family, willingness to engage in treatment Needs: To abstain from alcohol at this time Risk Factors Assessment : Yes /single/: Yes Higher / Fall in social status: No Access to guns: Yes (daughter has guns, but locked) Health problems: Yes Mental Health Diagnoses: Yes Substance use disorders: No Previous attempt: No Family history of suicide: Yes Previous psychiatric stay: Yes Hopelessness: Yes Smoker: Yes Protective Factors Assessment : No Responsible for young children: No Employed: No Stable relationships: Yes Supportive family: Yes Good rapport with provider: Yes Data Vital Signs Last 24 Hrs: Date Time Temp Pulse Resp B/P (MAP) Pulse Ox O2 Delivery O2 Flow Rate FiO2 05/11/17 06:54 36.8 59 16 108/70 58 107/60 Meds Administered Last 24 Hrs: Meds Administered (Past 24Hrs) Medications (Trade) Dose Ordered Sig/Sharmin Route Start Time Stop Time Status Last Admin Dose Admin Insulin Aspart (novoLOG ASPART) SLIDING SCALE 0200 SC 05/10/17 02:00 05/10/17 02:01 DC 05/10/17 02:07 1 UNITS Lab Results Last 24 Hrs: Last 24 Hours Test 05/10/17 12:08 05/10/17 17:21 05/10/17 20:23 05/11/17 08:45 Bedside Glucose 286 mg/dl 218 mg/dl 107 mg/dl 131 mg/dl Problem Qualifiers (1) Diabetes mellitus: Diabetes mellitus complication status: with unspecified complications Diabetes mellitus termite control servicer insulin use: with penitentiary use
[2017-05-11] MEDS: INSULIN GLARGINE SOLOSTAR 100 UNITS/ML 3 ML PEN SC SCH (21:46)
[2017-05-11] MEDS: hydrOXYzine HCL 25 MG TAB PO PRN (21:47)
[2017-05-12 06:43] VITALS: BP_SYST 122; BP_SYST 123; BP_DIAS 73; BP_DIAS 74; PULSE 52; PULSE 56; TEMP 36.5
[2017-05-12] MEDS: LEVOTHYROXINE 112 MCG TAB PO SCH (08:25)
[2017-05-12] MEDS: LISINOPRIL 10 MG TAB PO SCH (08:33)
[2017-05-12] MEDS: NICOTINE 14 MG/24 HR TDSY TD SCH (08:33)
[2017-05-12] MEDS: PRAVASTATIN SOD 20 MG TAB PO SCH (08:33)
[2017-05-12] MEDS: ASPIRIN 81 MG ECTAB PO SCH (08:33)
[2017-05-12] MEDS: BuPROPion XL 300 MG TABCR PO SCH (08:33)
[2017-05-12] MEDS: ESCITALOPRAM OXALATE 20 MG TAB PO SCH (08:33)
[2017-05-12] MEDS: CLONAZEPAM 0.5 MG TAB PO PRN ×2 (08:34→15:35)
[2017-05-12] MEDS: ACETAMINOPHEN 325 MG TAB PO PRN (08:34)
[2017-05-12] MEDS: INSULIN ASPART 100 UNITS/ML 3 ML PEN SC SCH ×2 (09:13→13:32)
[2017-05-12] MEDS ORDERED: ATR25 PO (09:56)
[2017-05-12] MEDS ORDERED: WLLXL300 PO (09:56)
[2017-05-12] MEDS ORDERED: NICO14DI5 TD (09:56)
[2017-05-12] MEDS ORDERED: LXP20 PO (09:56)
[2017-05-12] MEDS ORDERED: KLN5 PO (09:56)
--- NOTE | 2017-05-12 10:01 | Pharmacy Progress Note ---
Glycemic: Assessment & Plan Date of Service May 12, 2017. Assessment & Plan The patient is currently receiving ~40 units of insulin per day. BSGs ranging 75 - 300 mg/dl over the past 24hrs. * Basal insulin: Lantus 12-15 units every 24 hours * Correctional Insulin: Novolog Correction per scale ACHS Goal Range: Low 90 mg/dL - High 140 mg/dL Correction Factor: 25 mg/dL/unit (40 mg/dL/unit at HS) * Prandial insulin: Per carb ratio of 1 unit per 6 grams CHO consumed ( none at HS) ASSESSMENT: * BSGs on the lower side, almost hypoglycemic, after CR tightened yesterday * Will need to loosen slightly to prevent hypoglycemia PLAN FOR INPATIENT GLYCEMIC CONTROL: * LOOSEN CR to 1 unit per 6.5 gm CHO consumed Pharmacy will continue to monitor patient daily and write orders per [facility] inpatient glycemic control protocol. Thanks. DISCHARGE RECOMMENDATIONS: * CDE's note indicates that most recent A1c is acceptable, very few lows at home * Continue outpatient regimen of Lantus + Novolog per scale * Recommend close outpatient follow-up and may consider having patient learn to count carbs since this was something she was interested in
--- NOTE | 2017-05-12 10:05 | Discharge Instructions ---
Discharge Information Report Includes Report will include the: Discharge Instructions & Summary Admission Admission Date / Time: May 01, 2017 at 00:48 Reason for Admission: Suicidal, Increased Depression, Decreased Sleep, Discharge Discharge Diagnosis / Problem: Depression and anxiety Condition at Discharge: Fair Discharge Goals Goal(s): Decrease discomfort, Improve disease control, Prevent Disease Progression Activity Recommendations Activity Limitations: resume your previous activity . Instructions / Follow-Up Instructions / Follow-Up . SPECIAL CARE INSTRUCTIONS: 1. Follow through with your scheduled aftercare appointments. If unable to keep an appointment, please call to reschedule. 2. Take your medication only as prescribed. Medication should not be changed or stopped without the approval of your doctor. In the event of worsening symptoms or concerns about side effects, contact your doctor immediately. 3. Utilize new healthy coping skills, anger management skills, and stress management skills learned during your hospitalization. Journal feelings and process them with a support person. Identify stressors or situations that may result in relapse, deterioration or inappropriate behaviors and develop a plan to deal with those issues. 4. If your coping skills are ineffective and you are in crisis, contact your outpatient providers for direction. If unable to reach your providers, please call the CAN HELP LINE AT or go to the closest Emergency Room. 5. Avoid alcohol and un-prescribed drugs. 6. You have been provided with the Mental Health Advance Directives Pamphlet for your review. AFTERCARE APPOINTMENTS: * Please call your insurance company prior to your scheduled appointment to confirm your aftercare providers are covered. Take your insurance information to your appointments. . Discharge / Aftercare Planning Primary Care Physician: Name: Dr Camarena Date of Appointment: May 19, 2017 Time of Appointment: 10:45am [facility] Date of Appointment: May 18, 2017 Time of Appointment: 2:00pm Therapist: [facility] The[facility] Date of Appointment: May 17, 2017 Time of Appointment: 1:00pm Chief Wheelage Clerk: Name: . . Follow-Up Care Plan for Follow-Up Care: The patient will see her op psychiatrist on 05/18/17 Current Hospital Diet Patient's current hospital diet: Diabetes Type 2 Diet Discharge Diet Recommended Diet: Diabetes Type 2 Diet Procedures Procedures Performed: No Pending Studies Pending Studies at Discharge: No Medical Emergencies . Who to Call and When: Medical Emergencies: For questions or emergencies related to your hospital stay, please contact the Inpatient Behavioral Health Unit at [phone]. A pathology assistant is on-call 22/02 for the Behavioral Health Unit for emergencies At any time you feel your situation is an emergency, you may also call 911 immediately. . Non-Emergent Contact Non-Emergency issues call your: Psychiatrist, Therapist Past History Medical & Surgical History: (1) Hypothyroidism (2) Tobacco use disorder (3) Hyperglycemia due to type 1 diabetes mellitus (4) HTN (hypertension) Advance Directives Existing Advance Directive: No Do You Have an Existing Mental: No Existing Living Will: No Existing Power of Valve Steamer: No Advance Directives Info Given: To Pt/S.O. Advance Directives Reason: Declines as Mental Health Visit. Discharge Summary Admission HPI Per the Admitting provider: The patient is a 61-year-old woman with a history of depression dating back to the year 1999. She is currently in treatment with Dr. Ang at [facility] and has a therapist, Terry. Her depression initially began during a time when she was going through menopause and her was medically ill. She experienced a worsening of her depression about 2 years ago and was hospitalized at the [facility]. At that time she denies any acute stressor that had similar symptoms including anxiety. She has been on Wellbutrin SR 200 mg daily for years and recently her psychiatrist added Paxil 20 mg daily about 3 weeks ago. Since then she has been experiencing nausea, vomiting and daily liquid diarrhea. She has been staying with her daughter for the last 2 months because of her depression and in the last few days had started talking about wanting to return to her home but at the same time afraid to be alone and making statements that she was "tired of being like this". Daughter became concerned that she was suicidal and in view of the fact that she had previously been found with a loaded gun during her depression, they insisted she come to the emergency department for evaluation. The patient was initially resistant to coming into the hospital but with her family's encouragement was willing to sign in on a voluntary basis. Today she continues to describe herself as feeling severely depressed. She adamantly denies that she is suicidal saying she would never do that and contends that when the gun was found previously that she had no intentions of using it. She reports chronically disturbed sleep over the last 2 months with both difficulty falling asleep as well as staying asleep, getting only 4-5 hours per night. She wakes and has difficulty falling back to sleep. She has had anxiety over the last 2 months and has periods where she experiences palpitations and nausea. She denies that she has ever had auditory or visual hallucinations. She finds that she is isolating more recently and has lost interest in previously satisfying activities. She denies any history of self- injurious behaviors or any eating disorder behaviors. She denies any discrete episodes of euphoric mood, sleeplessness or pleasure seeking behaviors that would be congruent with a bipolar disorder. Hospital Course (1) Major depressive disorder, recurrent severe without psychotic features 05/01 - DC Paxil due to GI complaints -Start Lexapro 5 mg daily increasing to 10 mg tomorrow - Every 15 minute checks for safety - Obtain outpatient records from an coordinate care with current providers -Encourage participation in group and individual counseling- - Assist the patient to explore healthy coping strategies - Family meeting 05/02 - Continue current meds - Arrange family meeting 05/03 - Increase escitalopram to 15 mg daily for tomorrow. - Patient encouraged to utilize her when necessary's, including clonazepam and hydroxyzine, for sleep and anxiety. 05/04 - Continue current medications, and continue to encourage the patient to be out of bed and participating in treatment during the day. - Work on behavioral techniques for managing anxiety. - Family meeting with daughter today. 05/05 - Continue current meds - Tasked to make a list of activities she was willing to engage in at home. 05/06 - Continue escitalopram 15 mg daily. - Encourage patient to be out of bed during the day, and to work on her discharge safety plan and a schedule/list of activities to engage in at home 05/07 - Increase Lexapro to 20 mg. daily - Increase Wellbutrin to XL 300 mg. daily 05/08 - Continue current meds - Work on discharge plans, including schedule/structure and safety plan. 05/09 - Patient encouraged to get out of bed, shower, attend groups, and work on behavioral techniques for managing anxiety, but is resistant to this. 10/10 - Continue current meds - If progress continues, consider discharge tomorrow. (2) Tobacco use disorder 05/01 -Encourage the patient to cut down or consider quitting - Will provide nicotinic patch 14 mg daily as well as Nicorette gum one every 1 hour when necessary for nicotine withdrawal (3) Diarrhea 05/01 - Stool for cultures and C. difficile - Suspect this may be a side effect to the Paxil. See medication plan above 05/02 - No stool samples yet 05/03 - Patient informed of negative C. difficile results. Stool shiga toxin and cultures still pending. 05/09 - Diarrhea has resolved, and was most likely a side effect of paroxetine. Stool shiga toxin and cultures negative. (4) Diabetes mellitus 05/01 - Continue patient's home regimen of NovoLog and Lantus insulins - BS cheese before meals and at bedtime - Will request a consult with the diabetic pharmacist for management (5) HTN (hypertension) 05/01 - Continue home medications - Monitor BP's - Encourage exercise- (6) Hypothyroidism 05/02 - TSH slightly elevated. Will obtain a free T4 - normal at 1.10. Risk Factors Assessment : Yes /single/: Yes Higher / Fall in social status: No Access to guns: Yes (daughter has guns, but locked) Health problems: Yes Mental Health Diagnoses: Yes Substance use disorders: No Previous attempt: No Family history of suicide: Yes Previous psychiatric stay: Yes Hopelessness: Yes Smoker: Yes Protective Factors Assessment : No Responsible for young children: No Employed: No Stable relationships: Yes Supportive family: Yes Good rapport with provider: Yes Day of Discharge Assessment COURSE OF HOSPITALIZATION: The patient was on our unit for 11 days. She was admitted on a voluntary basis after having progressive decline in her ability to function outside of the hospital. She was initially resistant to being in the hospital having had a bad experience at a different hospital during a previous psychiatric stay. She had been complaining of chronic diarrhea since starting Paxil and so was discontinued in favor of Lexapro 20 mg daily. Her diarrhea abated. She has diabetes, insulin-dependent, and her blood sugars were quite variable during her stay. Medications were adjusted by the diabetic pharmacist. During the first half of her stay, the patient had a great deal of difficulty getting out of bed during the day and attending programming. This had been her pattern at home, perceiving she was too anxious to function or depressed to get out of bed. With encouragement she was able to attend more groups although when she had a bad day either feeling physically or emotionally unwell, she would retreat to bed. Family meeting was held with her only daughter with whom she had been living prior to admission. Her daughter was very supportive and encouraging but had been frustrated prior to admission that her mother was working harder on her depression. Daughter and suggested she reach out by phone to one of her many friends or family members. The patient was initially resistant to this but did eventually reach out to a friend. The patient also had trouble following through on other assignments, for example to create a list of activities that she was willing to have her daughter pushed her to do. She said a great many limits in what she was willing to do. She did eventually calm ceased to have suicidal ideation and she was having more good days than bad days. She felt capable of leaving the hospital this week and will be returning to her daughters hopefully for a short period of time before returning to her own home in [facility]. She will have follow-up with her regular psychiatric provider and her therapist. She was provided nicotine patch and gum during her stay and she would like to continue this after discharge in an effort to quit. She will be provided with a 21 mg daily patch. DAY OF DISCHARGE ASSESSMENT: Today the patient says she still feels good and feels ready for discharge. Her daughter will be picking her up later today. She again requests that we give her nicotine patch so she can continue her efforts to stop smoking. She is denying any suicidal ideation. She has some anxiety about whether or not her progress will continue. Today she is casually and appropriately dressed and groomed. Gait and station are within normal limits. Eye contact is good. Affect is restricted but able to smile. Speech is of normal rate volume and tone. Thoughts are organized, goal-directed, without evidence of thought disorder. Recent and remote memory are intact per conversation. Intelligence is estimated to be average. Insight and judgment are improved over admission. Laboratory Test 04/30/17 21:21 04/30/17 23:10 05/02/17 09:28 05/11/17 20:36 White Blood Count 8.53 Red Blood Count 4.35 Hemoglobin 14.3 Hematocrit 42.7 Mean Corpuscular Volume 98.2 Mean Corpuscular Hemoglobin 32.9 Mean Corpuscular Hemoglobin Concent 33.5 Platelet Count 307 Mean Platelet Volume 10.6 Neutrophils (%) (Auto) 76.5 Lymphocytes (%) (Auto) 17.2 Monocytes (%) (Auto) 4.8 Eosinophils (%) (Auto) 1.2 Basophils (%) (Auto) 0.1 Neutrophils # (Auto) 6.52 Lymphocytes # (Auto) 1.47 Monocytes # (Auto) 0.41 Eosinophils # (Auto) 0.10 Basophils # (Auto) 0.01 RDW Standard Deviation 50.3 RDW Coefficient of Variation 14.0 Immature Granulocyte % (Auto) 0.2 Immature Granulocyte # (Auto) 0.02 Sodium Level 138 Potassium Level 4.3 Chloride Level 107 Carbon Dioxide Level 22 Anion Gap 9.0 Blood Urea Nitrogen 5 Creatinine 0.87 Est Creatinine Clear Calc Drug Dose 63.5 Estimated GFR () 83.3 Estimated GFR (Non- 71.9 BUN/Creatinine Ratio 5.9 Random Glucose 167 Calcium Level 9.0 Total Bilirubin 0.2 Direct Bilirubin < 0.1 Aspartate Amino Transferase (AST) 14 Alanine Aminotransferase (ALT) 18 Alkaline Phosphatase 85 Total Protein 7.3 Albumin 3.8 Globulin 3.5 Albumin/Globulin Ratio 1.1 Thyroid Stimulating Hormone (TSH) 4.850 Ethyl Alcohol mg/dL 24.0 Urine Color YELLOW Urine Appearance CLEAR Urine pH 5.0 Urine Specific [place] 1.017 Urine Protein NEG Urine Glucose (UA) TRACE Urine Ketones NEG Urine Occult Blood NEG Urine Nitrite NEG Urine Bilirubin NEG Urine Urobilinogen NEG Urine Leukocyte Esterase TRACE Urine WBC (Auto) 1-5 Urine RBC (Auto) 0-4 Urine Hyaline Casts (Auto) 1-5 Urine Epithelial Cells (Auto) >30 Urine Bacteria (Auto) NEG Urine Opiates Screen NEG Urine Methadone, Qualitative NEG Urine Barbiturates NEG Urine Phencyclidine (PCP) Level NEG Ur Amphetamine/Methamphetamine NEG Urine MDE-amphetamine (MDEA) negative Ur Methylenedioxyamphetamine (MDA) negative MDMA (Ecstasy) Screen POS Methylenedioxymethamphetamine (MDMA negative Urine Benzodiazepines Screen NEG Urine Cocaine Metabolite NEG Urine Marijuana (THC) NEG Free Thyroxine 1.10 POC Glucose 75 Test 05/12/17 08:28 POC Glucose 94 Total Time Total Time Spent (min): Greater than 30 minutes Total Time Included: examination of the patient, discharge planning, medication reconciliation, communication with other providers Tobacco Cessation at Discharge Smoking Status: Current Every Day Smoker FDA approved Prescription: nicotine replacement product Problem Qualifiers (1) Diabetes mellitus: Diabetes mellitus complication status: with unspecified complications Diabetes mellitus snf insulin use: with snf use
== END 2017-05-12 16:24 | disposition home or self-care (01) | DRG 885 ==
LOC: C.EDB 20:37 → C.MHU 05-01 00:48
PROVIDERS: ADMIT Psychiatry & Neurology Child & Adolescent Psychiatry; ATTEND Psychiatry & Neurology Child & Adolescent Psychiatry
DX: F33.2 Major depressive disorder, recurrent severe without psychotic features (principal); R45.851 Suicidal ideations; F41.9 Anxiety disorder, unspecified; R19.7 Diarrhea, unspecified; T43.225A Adverse effect of selective serotonin reuptake inhibitors, initial encounter; I10 Essential (primary) hypertension; E11.9 Type 2 diabetes mellitus without complications; F17.200 Nicotine dependence, unspecified, uncomplicated; Z81.8 Family history of other mental and behavioral disorders; Z79.82 Long term (current) use of aspirin; Z79.4 Long term (current) use of insulin; Z79.899 Other long term (current) drug therapy

== ENCOUNTER 2021-11-22 16:13 | Inpatient (IN) ==
--- NOTE | 2021-11-22 16:48 | Emergency Department Note ---
Impression & Plan Ataxia, Rotary nystagmus ED Provider Note Name: ALBA DICKENS Age: 66 Sex: F Arrives Via: Walk-In Informant: Patient ED Provider: Varun Hawley MD Chief Complaint: Visual disturbance Impression: As per impressions above Medical Decision Makin-year-old female arrives for evaluation of ataxia and visual disturbance. She has a history of diabetes, hypertension, tobacco use, hypothyroid, depression amongst others arrives for evaluation of 12 hours of symptoms. On examination patient is somewhat ataxic with fine motor as well as having rotary nystagmus on examination. He sways when sitting up but she has no acute muscle weakness nor focal facial weakness on examination. With ongoing symptoms this would not be indication for tPA though an urgent CT CTA of head and neck was obtained which reveals no bleed nor acute dissection or clot. She does not have evidence of large vessel occlusion. Given the concern for stroke if she was given aspirin. She has no evidence of acute other issue going on at this time. It is not possible to rule out stroke at this time without doing further work-up and thus hospitalist was consulted for further evaluation and management. Prior Medical Record and Triage/Nursing Notes reviewed by Me Additional history obtained from chart Differentials:Infection, dehydration, metabolic abnormality, hypo/hyperglycemia, electrolyte disturbance, anemia, hypoxia, cardiac sources, intracerebral event, toxicologic, neurologic, as well as other pathologies. Vital Signs: reviewed and remarkable for no significant abnormalities Interventions: Aspirin 324 mg p.o. Labs:Reviewed and remarkable for moderate hyperglycemia Imagin view chest x-ray no acute findings CTA of head and neck with and without contrast reveals no acute findings. EKG:Per My Interpretation: Indication stroke: NSR 78 bpm, qtc 440. No Ectopy. No Ischemia. Compared to EKG 01/03/15, no significant changes. Cardiac/Tele Monitoring: Cardiac Monitoring: An Order was placed for continuous cardiac monitoring. The monitor shows a rate of 70 with a normal sinus rhythm. Consults:Dr Sung Loving hospitalist Plan: Disposition:Hospitalization. Discharged. Condition: Good History of Present Illness:66-year-old female arrives for evaluation of ataxia. Patient notes she was feeling fine the last few days. This morning she awoke and shortly thereafter realized that she was having difficulty focusing on things. She also notes she cannot walk in a straight line or grape picker things properly. She feels like her vision is doubled but that she cannot focus on things but she denies any vertiginous type symptoms. She denies any headache n or posterior neck/back pain. She denies any chest pain, shortness of breath, falls, trauma, injuries, abdominal pain, fevers, chills, nausea, vomiting, leg swelling, rashes, bleeding, bruising, urinary/bowel symptoms and or any other symptoms. She does have diabetes and states her sugars have been in the 200s which is unusual for her today. She did not take any medications prior to arrival other than her typical meds including her insulin. Symptoms began around 8 AM this morning and denies previous issues with this. She does note that last week she was seen in the [facility] for abdominal pain but that seems to have resolved. She has no history of stroke. Nothing seems to make any of the symptoms better or worse though closing her eyes she feels slightly better. ROS: See above HPI for pertinent positives & negatives. A total of 10 systems reviewed and were otherwise negative. Past Medical History:See Below Past Surgical History:See Below Family History:See Below Social History:See Below Home Medications:See Below Allergies:nkda Vitals:Blood Pressure: 123/70, Pulse 81, RR 18, T 36.9C, O2 94% on RA Physical Exam: GENERAL: Patient is tired appearing and in mild distress. EYES: No scleral icterus, unremarkable pupils. ENT: Mucous membranes moist, no nasal congestion. NECK: No masses appreciated, nomeningismus, trachea is midline. RESPIRATORY: No dyspnea. Clear to auscultation and equal bilaterally. No wheeze, no rhonchi. CARDIOVASCULAR: Regular rate and rhythm.No murmurs, rubs, gallops appreciated. GASTROINTESTINAL: Abdomen soft, non-tender, no peritonitis.Bowel sounds positive.No masses appreciated. BACK: No midline tenderness, no CVA tenderness EXTREMITIES: Normal motion all extremities, no cyanosis, no edema. NEUROLOGIC: Ataxia with fine motor of hands and with finger/nose/finger, rotary nystagmus of eyes and some dysconjugate gaze. Bilateral hand and arm strength intact as are legs. No facial weakness appreciated. Sensation intact. SKIN: No rash, no jaundice, no diaphoresis. PSYCH: Appropriate GCS: 15 ED Course: Times/Reassessments: Patient stable and actually feeling better as long as she is keeping her eyes closed. On repeat evaluation she still is somewhat ataxic though I will note that the commercial underwriter nystagmus seems somewhat better with rest. Varun Hawley MD Past Med/Surg History Medical History Diabetes mellitus Dyslipidemia HTN (hypertension) Hypothyroidism Major depressive disorder, recurrent severe without psychotic features Tobacco use disorder Surgical History History of Hx of tonsillectomy Family History Brother Hypertension Social History Smoking Status: Current every day smoker Tobacco Type: Cigarettes Cigarettes Per Day: 0.5; Tobacco Cessation Education Requested by Patient: No Hx Alcohol Use: Yes Alcohol type: beer and wine Alcohol Intake Frequency: 4 or More x per/Week Hx Substance Use: No Preferred Language: Citizen Of [place] Communication Ability: Effective Hub Borer Required: No Beliefs That Will Affect Care: None marital status: / Current Living Situation: Alone current occupational status: retired Feels Safe at Home: Yes Safety Concerns: Feels Safe At This Time Assistive Devices: Denture - Upper, Denture - Lower and Glasses Allergies Allergies Allergy/AdvReac Type Severity Reaction Status Date / Time No Known Allergies Allergy Verified 11/22/21 17:54 Home Meds Home Medications Medication Instructions Recorded Confirmed amlodipine 2.5 mg tablet 2.5 mg PO HS 11/22/21 11/22/21 aspirin 81 mg chewable tablet 81 mg PO DAILY 11/22/21 11/22/21 bupropion HCl 300 mg 24 hr tablet, 300 mg PO QAM 11/22/21 11/22/21 extended release calcium carbonate 600 mg-vitamin 1 cap PO DAILY 11/22/21 11/22/21 D3 5 mcg (200 unit) capsule (Calcium 600 + D(3)) clonazepam 0.5 mg tablet 0.5 mg PO DAILY PRN 11/22/21 11/22/21 insulin aspart U-100 100 unit/mL 0 sliding scale dose SUBCUT TIDM 11/22/21 11/22/21 (3 mL) subcutaneous pen (Novolog Flexpen U-100 Insulin aspart) insulin glargine 100 unit/mL (3 0 unit SUBCUT HS 11/22/21 11/22/21 mL) subcutaneous pen (Basaglar KwikPen U-100 Insulin) levothyroxine 112 mcg tablet 112 mcg PO DAILYBB 11/22/21 11/22/21 (Euthyrox) lisinopril 40 mg tablet 40 mg PO DAILY 11/22/21 11/22/21 multivitamin 1 tab PO DAILY 11/22/21 11/22/21 pravastatin 40 mg tablet 40 mg PO HS 11/22/21 11/22/21 venlafaxine 37.5 mg 37.5 mg PO QAM 11/22/21 11/22/21 capsule,extended release 24 hr Results & Data (ED) Vital Signs Vital Signs - 24 hr 11/22/21 16:17 11/22/21 17:20 11/22/21 17:30 Temperature 36.9 C Temperature Source Oral Pulse Rate 81 75 74 Pulse Rate from SpO2 Sensor 75 75 Respiratory Rate 18 16 21 Respiratory Effort / Characteristics Non-Labored Respiratory Depth Normal Respiratory Pattern Regular Blood Pressure 123/70 145/81 H 145/80 H Blood Pressure Mean 87 102 101 Pulse Oximetry 94 97 96 Oxygen Delivery Method Room Air Sepsis Recent Fever Within 48 Hours No Sepsis New/Unexplained Change in Mental Status No Sepsis Action Taken by Nursing No Action Required 11/22/21 18:00 11/22/21 18:30 11/22/21 19:00 Temperature Temperature Source Pulse Rate 77 74 86 Pulse Rate from SpO2 Sensor 77 73 Respiratory Rate 20 18 19 Respiratory Effort / Characteristics Respiratory Depth Respiratory Pattern Blood Pressure 148/93 H 154/86 H 110/81 Blood Pressure Mean 111 108 90 Pulse Oximetry 93 95 Oxygen Delivery Method Sepsis Recent Fever Within 48 Hours Sepsis New/Unexplained Change in Mental Status Sepsis Action Taken by Nursing 11/22/21 19:30 11/22/21 19:31 Temperature Temperature Source Pulse Rate 75 78 Pulse Rate from SpO2 Sensor Respiratory Rate 22 16 Respiratory Effort / Characteristics Respiratory Depth Respiratory Pattern Blood Pressure 162/65 H Blood Pressure Mean 97 Pulse Oximetry Oxygen Delivery Method Sepsis Recent Fever Within 48 Hours Sepsis New/Unexplained Change in Mental Status Sepsis Action Taken by Nursing Laboratory Data Result diagrams: 11/23/21 05:39 11/23/21 05:39 Lab Results 11/22/21 11/22/21 11/22/21 Range/Units 16:49 16:49 16:49 WBC 6.95 (4.8-10.8) K/uL RBC 3.95 L (4.2-5.4) M/uL Hgb 13.0 (12.0-16.0) g/dL POC Hgb (12.0-16.0) g/dl Hct 38.4 (37-47) % POC Hct (37-47) % MCV 97.2 (80-100) fL MCH 32.9 (25-34) pg MCHC 33.9 (32-36) g/dL RDW Std Deviation 50.5 H (36.4-46.3) fL RDW Coeff of Cindy 14.1 (11.5-14.5) % Plt Count 328 (130-400) K/uL MPV 10.1 (7.4-10.4) fL Immature Gran % (Auto) 0.1 % Neut % (Auto) 76.9 % Lymph % (Auto) 18.0 % [place] % (Auto) 4.6 % Eos % (Auto) 0.3 % Baso % (Auto) 0.1 % Neut # (Auto) 5.34 (1.4-6.5) K/uL Lymph # (Auto) 1.25 (1.2-3.4) K/uL [place] # (Auto) 0.32 (0.11-0.59) K/uL Eos # (Auto) 0.02 (0-0.5) K/uL Baso # (Auto) 0.01 (0-0.2) K/uL Immature Gran # (Auto) 0.01 (0.00-0.02) K/uL PT (9.0-12.0) Seconds INR (0.9-1.1) POC Sodium (135-144) mmol/L Sodium 136 (136-145) mmol/L POC Potassium (3.3-5.0) mmol/L Potassium 3.9 (3.5-5.1) mmol/L POC Chloride (101-112) mmol/L Chloride 104 (98-107) mmol/L Carbon Dioxide 26 (21-32) mmol/L POC Total CO2 (24-31) mmol/L Anion Gap 6 (3-11) POC Anion Gap (16-25) mmol/L POC BUN (7-18) mg/dl BUN 11 (6-23) mg/dl Creatinine 0.74 (0.6-1.2) mg/dl POC Creatinine (0.6-1.3) mg/dl Est Cr Clr Drug Dosing Not Reportable Est GFR ( Amer) 97.8 ml/min Est GFR (Non-Af Amer) 84.4 ml/min BUN/Creatinine Ratio 14.9 (10-20) Glucose 187 H (70-99(Fasting)) mg/dl POC Glucose (other) (70-99) mg/dl Calcium 9.2 (8.5-10.1) mg/dl POC Ioniz Calcium Man (1.12-1.32) mmol/l Magnesium 1.8 (1.7-2.4) mg/dl Total Bilirubin 0.4 (0.2-1.0) mg/dl AST 14 (13-39) U/L ALT 13 (7-52) U/L Alkaline Phosphatase 67 (34-104) U/L Troponin I High Sens 4.0 (0-14) pg/ml Total Protein 6.5 (6.0-8.3) gm/dl Albumin 3.8 (3.4-5.0) gm/dl Globulin 2.7 (2.5-4.0) gm/dl Albumin/Globulin Ratio 1.4 (0.9-2) TSH 1.029 (0.300-4.500) uIu/ml Urine Color Urine Appearance (Clear) Urine pH (4.5-7.5) Ur Specific Campus (1.000-1.030) Urine Protein (Negative) Urine Glucose (UA) (Negative) Urine Ketones (Negative) Urine Blood (Negative) Urine Nitrite (Negative) Urine Bilirubin (Negative) Urine Urobilinogen (Negative) Ur Leukocyte Esterase (Negative) SARS-CoV-2, RNA, NAAT (NEGATIVE) 11/22/21 11/22/21 11/22/21 Range/Units 16:49 16:52 18:55 WBC (4.8-10.8) K/uL RBC (4.2-5.4) M/uL Hgb (12.0-16.0) g/dL POC Hgb 13.3 (12.0-16.0) g/dl Hct (37-47) % POC Hct 39 (37-47) % MCV (80-100) fL MCH (25-34) pg MCHC (32-36) g/dL RDW Std Deviation (36.4-46.3) fL RDW Coeff of Cindy (11.5-14.5) % Plt Count (130-400) K/uL MPV (7.4-10.4) fL Immature Gran % (Auto) % Neut % (Auto) % Lymph % (Auto) % [place] % (Auto) % Eos % (Auto) % Baso % (Auto) % Neut # (Auto) (1.4-6.5) K/uL Lymph # (Auto) (1.2-3.4) K/uL [place] # (Auto) (0.11-0.59) K/uL Eos # (Auto) (0-0.5) K/uL Baso # (Auto) (0-0.2) K/uL Immature Gran # (Auto) (0.00-0.02) K/uL PT 10.5 (9.0-12.0) Seconds INR 1.0 (0.9-1.1) POC Sodium 138 (135-144) mmol/L Sodium (136-145) mmol/L POC Potassium 4.2 (3.3-5.0) mmol/L Potassium (3.5-5.1) mmol/L POC Chloride 101 (101-112) mmol/L Chloride (98-107) mmol/L Carbon Dioxide (21-32) mmol/L POC Total CO2 26 (24-31) mmol/L Anion Gap (3-11) POC Anion Gap 16.0 (16-25) mmol/L POC BUN 11 (7-18) mg/dl BUN (6-23) mg/dl Creatinine (0.6-1.2) mg/dl POC Creatinine 0.7 (0.6-1.3) mg/dl Est Cr Clr Drug Dosing Est GFR ( Amer) ml/min Est GFR (Non-Af Amer) ml/min BUN/Creatinine Ratio (10-20) Glucose (70-99(Fasting)) mg/dl POC Glucose (other) 191 H (70-99) mg/dl Calcium (8.5-10.1) mg/dl POC Ioniz Calcium Man 1.23 (1.12-1.32) mmol/l Magnesium (1.7-2.4) mg/dl Total Bilirubin (0.2-1.0) mg/dl AST (13-39) U/L ALT (7-52) U/L Alkaline Phosphatase (34-104) U/L Troponin I High Sens (0-14) pg/ml Total Protein (6.0-8.3) gm/dl Albumin (3.4-5.0) gm/dl Globulin (2.5-4.0) gm/dl Albumin/Globulin Ratio (0.9-2) TSH (0.300-4.500) uIu/ml Urine Color Urine Appearance (Clear) Urine pH (4.5-7.5) Ur Specific Campus (1.000-1.030) Urine Protein (Negative) Urine Glucose (UA) (Negative) Urine Ketones (Negative) Urine Blood (Negative) Urine Nitrite (Negative) Urine Bilirubin (Negative) Urine Urobilinogen (Negative) Ur Leukocyte Esterase (Negative) SARS-CoV-2, RNA, NAAT NEGATIVE (NEGATIVE) 11/22/21 Range/Units 19:00 WBC (4.8-10.8) K/uL RBC (4.2-5.4) M/uL Hgb (12.0-16.0) g/dL POC Hgb (12.0-16.0) g/dl Hct (37-47) % POC Hct (37-47) % MCV (80-100) fL MCH (25-34) pg MCHC (32-36) g/dL RDW Std Deviation (36.4-46.3) fL RDW Coeff of Cindy (11.5-14.5) % Plt Count (130-400) K/uL MPV (7.4-10.4) fL Immature Gran % (Auto) % Neut % (Auto) % Lymph % (Auto) % [place] % (Auto) % Eos % (Auto) % Baso % (Auto) % Neut # (Auto) (1.4-6.5) K/uL Lymph # (Auto) (1.2-3.4) K/uL [place] # (Auto) (0.11-0.59) K/uL Eos # (Auto) (0-0.5) K/uL Baso # (Auto) (0-0.2) K/uL Immature Gran # (Auto) (0.00-0.02) K/uL PT (9.0-12.0) Seconds INR (0.9-1.1) POC Sodium (135-144) mmol/L Sodium (136-145) mmol/L POC Potassium (3.3-5.0) mmol/L Potassium (3.5-5.1) mmol/L POC Chloride (101-112) mmol/L Chloride (98-107) mmol/L Carbon Dioxide (21-32) mmol/L POC Total CO2 (24-31) mmol/L Anion Gap (3-11) POC Anion Gap (16-25) mmol/L POC BUN (7-18) mg/dl BUN (6-23) mg/dl Creatinine (0.6-1.2) mg/dl POC Creatinine (0.6-1.3) mg/dl Est Cr Clr Drug Dosing Est GFR ( Amer) ml/min Est GFR (Non-Af Amer) ml/min BUN/Creatinine Ratio (10-20) Glucose (70-99(Fasting)) mg/dl POC Glucose (other) (70-99) mg/dl Calcium (8.5-10.1) mg/dl POC Ioniz Calcium Man (1.12-1.32) mmol/l Magnesium (1.7-2.4) mg/dl Total Bilirubin (0.2-1.0) mg/dl AST (13-39) U/L ALT (7-52) U/L Alkaline Phosphatase (34-104) U/L Troponin I High Sens (0-14) pg/ml Total Protein (6.0-8.3) gm/dl Albumin (3.4-5.0) gm/dl Globulin (2.5-4.0) gm/dl Albumin/Globulin Ratio (0.9-2) TSH (0.300-4.500) uIu/ml Urine Color Yellow Urine Appearance Clear (Clear) Urine pH 5.0 (4.5-7.5) Ur Specific Campus > 1.045 H (1.000-1.030) Urine Protein Negative (Negative) Urine Glucose (UA) 2+ H (Negative) Urine Ketones 1+ H (Negative) Urine Blood Negative (Negative) Urine Nitrite Negative (Negative) Urine Bilirubin Negative (Negative) Urine Urobilinogen Negative (Negative) Ur Leukocyte Esterase Negative (Negative) SARS-CoV-2, RNA, NAAT (NEGATIVE) Administered Medications Aspirin (Aspirin 81 Mg Chew) 81 mg PO DAILY SACHI Stop: 12/23/21 08:59 Last Admin: 11/23/21 08:51 Dose: 81 mg Documented by: [id number] Atorvastatin Calcium (Atorvastatin 40 Mg Tab) 40 mg PO HS SACHI Stop: 12/22/21 23:53 Last Admin: 11/23/21 01:20 Dose: 40 mg Documented by: [id number] Bupropion HCl (Bupropion Xl 300 Mg Tabcr) 300 mg PO QAM SACHI Stop: 12/23/21 08:59 Last Admin: 11/23/21 08:51 Dose: 300 mg Documented by: [id number] Clonazepam (Clonazepam 0.5 Mg Tab) 0.5 mg PO DAILY PRN PRN Reason: Anxiety Stop: 12/22/21 23:53 Last Admin: 11/23/21 08:54 Dose: 0.5 mg Documented by: [id number] Enoxaparin Sodium (Enoxaparin Inj 40 Mg/0.4 Ml Syr) 40 mg SQ QAM SACHI Stop: 12/23/21 08:59 Last Admin: 11/23/21 08:50 Dose: 40 mg Documented by: [id number] Sodium Chloride (Nss 1000ml) 1,000 mls @ 80 mls/hr IV .[id number] ONE Stop: 11/23/21 23:06 Last Admin: 11/23/21 10:44 Dose: 80 mls/hr Documented by: [id number] Insulin Aspart (Insulin Aspart Per Unit) 0 units SC ACHS SACHI Stop: 12/22/21 23:53 Last Admin: 11/23/21 08:52 Dose: 2 units Documented by: [id number] Cosigned by: [id number] Admin: 11/23/21 00:34 Dose: Not Given Documented by: [id number] Insulin Glargine (Insulin Glargine Solostar 100 Units/Ml 3 Ml Pen) 10 units SC BID SACHI Stop: 12/22/21 23:53 Last Admin: 11/23/21 08:52 Dose: 10 units Documented by: [id number] Cosigned by: [id number] Admin: 11/23/21 01:21 Dose: 10 units Documented by: [id number] Cosigned by: [id number] Levothyroxine Sodium (Levothyroxine Sodium 112 Mcg Tablet) 112 mcg PO DAILYBB [facility] Stop: 12/23/21 06:29 Last Admin: 11/23/21 05:31 Dose: 112 mcg Documented by: [id number] Miscellaneous (Remove Nicoderm Patch) 1 ea N/A DAILY@0859 [facility] Stop: 12/23/21 08:58 Last Admin: 11/23/21 08:51 Dose: 1 ea Documented by: [id number] Multivitamins/Minerals (Calcium 600mg + Vit D 400 Iu Tab) 1 tab PO DAILY SACHI Stop: 12/23/21 08:59 Last Admin: 11/23/21 08:51 Dose: 1 tab Documented by: [id number] Nicotine (Nicotine 21 Mg/24 Hr Tdsy) 21 mg TD QAM [facility] Stop: 12/23/21 08:59 Last Admin: 11/23/21 08:50 Dose: 21 mg Documented by: [id number] Ondansetron HCl (Ondansetron Inj 2 Mg/Ml 2 Ml Vial) 4 mg IV Q6H PRN PRN Reason: Nausea Stop: 12/22/21 23:53 Last Admin: 11/23/21 00:50 Dose: 4 mg Documented by: [id number] Venlafaxine HCl (Venlafaxine Hcl Xr 37.5 Mg Capxr) 37.5 mg PO QAM [facility] Stop: 12/23/21 08:59 Last Admin: 11/23/21 08:51 Dose: 37.5 mg Documented by: [id number] Discontinued Medications Aspirin (Aspirin 81 Mg Chew) 324 mg PO NOW STA Stop: 11/22/21 18:08 Last Admin: 11/22/21 19:04 Dose: 324 mg Documented by: [id number] Enoxaparin Sodium (Enoxaparin Inj 40 Mg/0.4 Ml Syr) 40 mg SQ HS [facility] Stop: 12/22/21 23:53 Last Admin: 11/23/21 01:08 Dose: Not Given Documented by: [id number] Ioversol (Optiray 320 125ml) 120 ml IV ONCE ONE Stop: 11/22/21 17:08 Last Admin: 11/22/21 17:08 Dose: 120 ml Documented by: [id number] Miscellaneous (Patient's Height And/Or Weight Needed) 1 ea N/A Q2H SACHI Stop: 12/23/21 00:14 Last Admin: 11/23/21 01:08 Dose: Not Given Documented by: [id number] Imaging Data Radiologist's Impression: Head CTA 11/22/21 16:44 CT angio head wo/w CLINICAL HISTORY: Stroke symptoms. Dizziness. COMPARISON STUDY: No previous studies for comparison. TECHNIQUE: Unenhanced and arterial phase imaging of the head was performed. Intravenous injection of 120 cc Optiray 320 IV was uneventful. Sagittal coronal reconstructed reviewed as well as maximal intensity projections on an independent 3-D workstation. Automated exposure control was utilized for the study. A dose lowering technique was utilized adhering to the principles of ALARA. FINDINGS: No acute intracranial hemorrhage, midline shift or mass effect is present. Ventricular system is normal. Basal cisterns are patent. There are no extra axial collections. Cruz-white differentiation is maintained. No findings to suggest acute dural sinus thrombosis or acute territorial infarct. There are no significant calvarial abnormalities. The bilateral M1, M2, A1 and A2 segments are patent. No central vessel occlusion is present. There is no intracranial aneurysm. There is mild plaque within the bilateral cavernous carotids. There are large bilateral posterior communicating arteries. The vertebral arteries and basilar artery are diminutive. Posterior circulation is largely supplied by the anterior circulation. IMPRESSION: 1. No acute intracranial findings. 2. No central vessel occlusion or intracranial aneurysm. 3. Large bilateral posterior communicating arteries. Diminutive basilar and bilateral vertebral arteries which is likely congenital. ACT 112: Negative or not required by law. Electronically signed by: Sixto Hernandez M.D. 11/22/2021 5:50 PM Neck CTA 11/22/21 16:44 CT ANGIOGRAPHY OF THE NECK WITH CONTRAST CLINICAL HISTORY: Stroke symptoms. COMPARISON STUDY: No previous studies for comparison. Technique: CT angiography of the carotid and vertebral arteries was obtained using Optiray and 3D reconstruction on an independent workstation. NASCET criteria was utilized. Automated exposure control was utilized for the study. A dose lowering technique was utilized adhering to the principles of ALARA. CT DOSE: 1106.08 mGy.cm Findings: Visualized portions of the lung apices are unremarkable. There is mild emphysema. No cervical lymphadenopathy is present. No acute cervical spine fracture. The bilateral common carotid, cervical internal carotid and vertebral arteries are patent. There is mild plaque within the bilateral carotid bifurcations without stenosis. 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 No dissection within the neck is noted. There is no aneurysm within the neck. IMPRESSION: No stenosis or dissection within the bilateral common carotid, cervical internal carotid or vertebral arteries. ACT 112: Negative or not required by law. Electronically signed by: Sixto Hernandez M.D. 11/22/2021 5:54 PM Chest X-Ray 11/22/21 16:45 XR chest 1V portable CLINICAL HISTORY: stroke COMPARISON STUDY: No previous studies for comparison. FINDINGS: Lung volumes are normal. Lungs are clear. There is no pneumothorax or pleural effusion. Cardiac size is normal. Mediastinal contours are normal. There is no evidence for pulmonary edema. Multiple old right rib fractures are incidentally noted. IMPRESSION: No acute cardiopulmonary findings. ACT 112: Negative or not required by law. Electronically signed by: Sixto Hernandez M.D. 11/22/2021 5:08 PM Discharge Plan Visit Data Chief Complaint: Dizziness Stated Complaint: DIZZINESS, UNABLE TO WALK, DOUBLE VISION ED Provider: Varun Hawley Discharge Problem: Ataxia, Rotary nystagmus Patient Disposition: Admitted As Inpatient Discharge Instructions Interventions: ED Discharge Assessment Last Done: 11/22/21 23:28
[2021-11-22 17:03] LABS: Basophils # (auto) 0.01 K/uL (0-0.2); Basophils % (auto) 0.1 %; Eosinophils # (auto) 0.02 K/uL (0-0.5); Eosinophils % (auto) 0.3 %; Hematocrit (blood only) 38.4 % (37-47); Immature Granulocytes # (auto) 0.01 K/uL (0.00-0.02); Immature Granulocytes % (auto) 0.1 %; Lymphocytes # (auto) 1.25 K/uL (1.2-3.4); Mean Corpuscular Hemoglobin 32.9 pg (25-34); Mean Corpuscular Hgb Conc 33.9 g/dL (32-36); Mean Corpuscular Volume 97.2 fL (80-100); Mean Platelet Volume 10.1 fL (7.4-10.4); Monocytes # (auto) 0.32 K/uL (0.11-0.59); Monocytes % (auto) 4.6 %; Neutrophils # (auto) 5.34 K/uL (1.4-6.5); Neutrophils % (auto) 76.9 %; Platelet Count 328 K/uL (130-400); RDW Coefficient of Variation 14.1 % (11.5-14.5); RDW Standard Deviation 50.5 fL (36.4-46.3); Red Blood Count 3.95 M/uL (4.2-5.4); White Blood Count 6.95 K/uL (4.8-10.8)
[2021-11-22 17:05] LABS: iSTAT Creatinine 0.7 mg/dl (0.6-1.3); iSTAT Hemoglobin 13.3 g/dl (12.0-16.0); iSTAT Ionized Calcium 1.23 mmol/l (1.12-1.32); iSTAT Potassium 4.2 mmol/L (3.3-5.0)
[2021-11-22] MEDS ORDERED: OPTIRAY 320 125ml IV ONE (17:07)
--- NOTE | 2021-11-22 17:09 | XRay Report ---
XR chest 1V portable CLINICAL HISTORY: stroke COMPARISON STUDY: No previous studies for comparison. FINDINGS: Lung volumes are normal. Lungs are clear. There is no pneumothorax or pleural effusion. Car diac size is normal. Mediastinal contours are normal. There is no evidence for pulmonary edema. Multi ple old right rib fractures are incidentally noted. IMPRESSION: No acute cardiopulmonary findings. ACT 112: Negative or not required by law. Electronically signed by: Sixto Hernandez M.D. 11/22/2021 5:08 PM
[2021-11-22 17:12] LABS: Prothrombin Time 10.5 Seconds (9.0-12.0)
[2021-11-22 17:28] LABS: Alanine Aminotransferase 13 U/L (7-52); Albumin Globulin Ratio 1.4 (0.9-2); Albumin Level 3.8 gm/dl (3.4-5.0); Alkaline Phosphatase 67 U/L (34-104); Anion Gap 6 (3-11); Aspartate Aminotransferase 14 U/L (13-39); BUN Creatinine Ratio 14.9 (10-20); Bilirubin,Total 0.4 mg/dl (0.2-1.0); Blood Urea Nitrogen 11 mg/dl (6-23); Calcium 9.2 mg/dl (8.5-10.1); Carbon Dioxide 26 mmol/L (21-32); Chloride 104 mmol/L (98-107); Est GFR (African American) 97.8 ml/min; Est GFR (Non-African American) 84.4 ml/min; Globulin 2.7 gm/dl (2.5-4.0); Glucose 187 mg/dl (70-99(Fasting)); Magnesium 1.8 mg/dl (1.7-2.4); Potassium 3.9 mmol/L (3.5-5.1); Sodium 136 mmol/L (136-145); Total Protein 6.5 gm/dl (6.0-8.3)
--- NOTE | 2021-11-22 17:53 | CT Scan Report ---
CT angio head wo/w CLINICAL HISTORY: Stroke symptoms. Dizziness. COMPARISON STUDY: No previous studies for comparison. TECHNIQUE: Unenhanced and arterial phase imaging of the head was performed. Intravenous injection of 120 cc Optiray 320 IV was uneventful. Sagittal coronal reconstructed reviewed as well as maximal inte nsity projections on an independent 3-D workstation. Automated exposure control was utilized for the study. A dose lowering technique was utilized adhering to the principles of ALARA. FINDINGS: No acute intracranial hemorrhage, midline shift or mass effect is present. Ventricular syst em is normal. Basal cisterns are patent. There are no extra axial collections. Cruz-white differentia tion is maintained. No findings to suggest acute dural sinus thrombosis or acute territorial infarct. There are no significant calvarial abnormalities. The bilateral M1, M2, A1 and A2 segments are paten t. No central vessel occlusion is present. There is no intracranial aneurysm. There is mild plaque wi thin the bilateral cavernous carotids. There are large bilateral posterior communicating arteries. Th e vertebral arteries and basilar artery are diminutive. Posterior circulation is largely supplied by the anterior circulation. IMPRESSION: 1. No acute intracranial findings. 2. No central vessel occlusion or intracranial aneurysm. 3. Large bilateral posterior communicating arteries. Diminutive basilar and bilateral vertebral arter ies which is likely congenital. ACT 112: Negative or not required by law. Electronically signed by: Sixto Hernandez M.D. 11/22/2021 5:50 PM
--- NOTE | 2021-11-22 17:56 | CT Scan Report ---
CT ANGIOGRAPHY OF THE NECK WITH CONTRAST CLINICAL HISTORY: Stroke symptoms. COMPARISON STUDY: No previous studies for comparison. Technique: CT angiography of the carotid and vertebral arteries was obtained using Optiray and 3D rec onstruction on an independent workstation. NASCET criteria was utilized. Automated exposure control was utilized for the study. A dose lowering technique was utilized adhering to the principles of ALA RA. CT DOSE: 1106.08 mGy.cm Findings: Visualized portions of the lung apices are unremarkable. There is mild emphysema. No cervic al lymphadenopathy is present. No acute cervical spine fracture. The bilateral common carotid, cervic al internal carotid and vertebral arteries are patent. There is mild plaque within the bilateral galdamez tid bifurcations without stenosis. 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 No dissecti on within the neck is noted. There is no aneurysm within the neck. IMPRESSION: No stenosis or dissection within the bilateral common carotid, cervical internal carotid or vertebral arteries. ACT 112: Negative or not required by law. Electronically signed by: Sixto Hernandez M.D. 11/22/2021 5:54 PM
[2021-11-22] MEDS ORDERED: ASPIRIN 81 MG CHEW PO STA (18:07)
[2021-11-22 19:26] LABS: Appearance Urine Clear (Clear); Bilirubin Urine Negative (Negative); Blood Urine Negative (Negative); Color Urine Yellow; Glucose Urine UA 2+ (Negative); Ketones Urine 1+ (Negative); Leukocyte Esterase Urine Negative (Negative); Nitrite Urine Negative (Negative); Protein Urine Negative (Negative); Specific Gravity Urine > 1.045 (1.000-1.030); Urobilinogen Urine Negative (Negative)
--- NOTE | 2021-11-22 19:56 | History & Physical Report ---
Date of Service November 22, 2021 Assessment & Plan (1) Vertigo: Plan: Acute vertigo since this am, concern for central etiology with hypertension and smoking as risk factors. 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 MRI brain pending. Given ASA 324mg in ER and statin intensified to Lipitor 40mg. May add DAPT if evidence of stroke on MRI. Consulted neurology for recs. (2) Diabetes mellitus: Plan: chronic, stable. Cont indulin in the hospital and A1C in am. (3) HTN (hypertension): Plan: chronic, stable. Permissive hypertension allowed at this time. (4) Tobacco use disorder: Plan: chronic smoker, encouraged to quit. Gave nicoderm. Patient in contemplative phase and reports with her depression she can't handle the stress of quitting at this time. (5) Major depressive disorder, recurrent severe without psychotic features: Plan: chronic, stable. No SI present. Cont Bupropion and Welbutrin per home regimen. (6) Hypothyroidism: Plan: chronic, stable, TSH WNL. Cont levothyroxine per home regimen. (7) Dyslipidemia: Plan: Pravastatin intensified to Lipitor in setting of possible stroke. (8) DVT prophylaxis: Plan: Lovenox Full Code Dispo-pending stroke workup and clinical improvement. Evi Almaraz DO [facility] Hospitalist History of Present Illness Chief Complaint: dizziness Primary Care Provider: Deepak Arriaga DO 66 yo F smoker presents with vertigo associated with vomiting this morning after her am coffee. Vertigo has persisted all day today and is worse with any head movement. She was recently diagnosed with acute diverticulitis 3 weeks ago, and was on antibiotic therapy (treated at [facility]) until Wed. She denies diarrhea and has no headache, +blurry vision present and she feels off balance. No speech or word finding issues. No issues with arms or legs but has generalized dizziness, no weakness per se. No h/o stroke or [place]. Has diabetes that is uncontrolled per her report. She does report depression related to pain with diverticulitis; that abdominal pain gone now. No CP, SOB, no headache, haven't been eating well with recent illness and with noted depression. Had vaginal itching and no discharge --took Monistat and the itching has improved. While on antibiotics she did have some difficulty urinating and felt some dysuria but this has since improved. No fevers or chills. There is a clear rotary nystagmus present on exam. ER physician described patient's gait as ataxic. Allergies Allergy/AdvReac Type Severity Reaction Status Date / Time No Known Allergies Allergy Verified 11/22/21 17:54 Home Medications Medication Instructions Recorded Confirmed Type amlodipine 2.5 mg tablet 2.5 mg PO HS 11/22/21 11/22/21 History aspirin 81 mg chewable tablet 81 mg PO DAILY 11/22/21 11/22/21 History bupropion HCl 300 mg 24 hr tablet, 300 mg PO QAM 11/22/21 11/22/21 History extended release calcium carbonate 600 mg-vitamin 1 cap PO DAILY 11/22/21 11/22/21 History D3 5 mcg (200 unit) capsule (Calcium 600 + D(3)) clonazepam 0.5 mg tablet 0.5 mg PO DAILY PRN 11/22/21 11/22/21 History insulin aspart U-100 100 unit/mL 0 sliding scale dose SUBCUT TIDM 11/22/21 11/22/21 History (3 mL) subcutaneous pen (Novolog Flexpen U-100 Insulin aspart) insulin glargine 100 unit/mL (3 0 unit SUBCUT HS 11/22/21 11/22/21 History mL) subcutaneous pen (Basaglar KwikPen U-100 Insulin) levothyroxine 112 mcg tablet 112 mcg PO DAILYBB 11/22/21 11/22/21 History (Euthyrox) lisinopril 40 mg tablet 40 mg PO DAILY 11/22/21 11/22/21 History multivitamin 1 tab PO DAILY 11/22/21 11/22/21 History pravastatin 40 mg tablet 40 mg PO HS 11/22/21 11/22/21 History venlafaxine 37.5 mg 37.5 mg PO QAM 11/22/21 11/22/21 History capsule,extended release 24 hr Past Med/Surg History Medical History Diabetes mellitus Dyslipidemia HTN (hypertension) Hypothyroidism Major depressive disorder, recurrent severe without psychotic features Tobacco use disorder Surgical History History of Hx of tonsillectomy Family History Brother Hypertension Social History Smoking Status: Current every day smoker Tobacco Type: Cigarettes Cigarettes Per Day: 20; Hx Alcohol Use: Yes Alcohol type: beer and wine Alcohol Intake Frequency: 4 or More x per/Week Hx Substance Use: No Preferred Language: Lao marital status: / Current Living Situation: Alone current occupational status: retired Feels Safe at Home: Yes Review of Systems Review of Systems: All systems were reviewed and negative except as indicated on HPI above . Physical Exam Physical Exam: CONSTITUTIONAL: WNWD, vitals as above, generally well- appearing, becomes symptomatic when moving her head side to side EYES: EOMI bilaterally, PERRL, normal conjunctivae, no scleral icterus, +rotary nystagmus when looking in both directions ENT: external ear and nose normal, oropharynx clear, no TM abnormality on the right ear, however cerumen impaction present on the left. No LAD NECK: trachea midline, no lymphadenopathy RESPIRATORY: clear to auscultation bilaterally, no crackles, rales or wheezes, normal respiratory effort CARDIOVASCULAR: regular rate and rhythm, S1 and 2 heard without murmurs, gallops or rubs, no JVD, no peripheral edema CHEST: inspection of chest was normal GASTROINTESTINAL: soft, nontender, ND, no guarding MUSCULOSKELETAL: strength 5/5 throughout, head is normocephalic and atraumatic SKIN: warm and dry NEUROLOGIC: patellar DTR 2/4 bilaterally, CN 2-12 grossly intact, no sensory deficit, normal cognition, normal speech, no tremor PSYCHIATRIC: alert cooperative and oriented to person, place and time. Results & Data Results & Data ([facility]) Vital Signs (Past 12 Hours) Vital Signs Temp Pulse Resp BP Pulse Ox 11/22/21 16:17 36.9 C 81 18 123/70 94 Laboratory Results Short CBC 11/22/21 Range/Units 16:49 WBC 6.95 (4.8-10.8) K/uL Hgb 13.0 (12.0-16.0) g/dL Hct 38.4 (37-47) % Plt Count 328 (130-400) K/uL BMP 11/22/21 16:49 Sodium 136 Potassium 3.9 Chloride 104 Carbon Dioxide 26 BUN 11 Creatinine 0.74 Glucose 187 H Calcium 9.2 Liver Function 11/22/21 Range/Units 16:49 Total Bilirubin 0.4 (0.2-1.0) mg/dl AST 14 (13-39) U/L ALT 13 (7-52) U/L Alkaline Phosphatase 67 (34-104) U/L Albumin 3.8 (3.4-5.0) gm/dl Urine 11/22/21 Range/Units 19:00 Urine Color Yellow Urine Appearance Clear (Clear) Urine pH 5.0 (4.5-7.5) Ur Specific [place] > 1.045 H (1.000-1.030) Urine Protein Negative (Negative) Urine Glucose (UA) 2+ H (Negative) Diagnostic Findings Head CTA 11/22/21 16:44 CT angio head wo/w CLINICAL HISTORY: Stroke symptoms. Dizziness. COMPARISON STUDY: No previous studies for comparison. TECHNIQUE: Unenhanced and arterial phase imaging of the head was performed. Intravenous injection of 120 cc Optiray 320 IV was uneventful. Sagittal coronal reconstructed reviewed as well as maximal intensity projections on an independent 3-D workstation. Automated exposure control was utilized for the study. A dose lowering technique was utilized adhering to the principles of ALARA. FINDINGS: No acute intracranial hemorrhage, midline shift or mass effect is present. Ventricular system is normal. Basal cisterns are patent. There are no extra axial collections. Cruz-white differentiation is maintained. No findings to suggest acute dural sinus thrombosis or acute territorial infarct. There are no significant calvarial abnormalities. The bilateral M1, M2, A1 and A2 segments are patent. No central vessel occlusion is present. There is no intracranial aneurysm. There is mild plaque within the bilateral cavernous carotids. There are large bilateral posterior communicating arteries. The vertebral arteries and basilar artery are diminutive. Posterior circulation is largely supplied by the anterior circulation. IMPRESSION: 1. No acute intracranial findings. 2. No central vessel occlusion or intracranial aneurysm. 3. Large bilateral posterior communicating arteries. Diminutive basilar and bilateral vertebral arteries which is likely congenital. ACT 112: Negative or not required by law. Electronically signed by: Sixto Hernandez M.D. 11/22/2021 5:50 PM Neck CTA 11/22/21 16:44 CT ANGIOGRAPHY OF THE NECK WITH CONTRAST CLINICAL HISTORY: Stroke symptoms. COMPARISON STUDY: No previous studies for comparison. Technique: CT angiography of the carotid and vertebral arteries was obtained using Optiray and 3D reconstruction on an independent workstation. NASCET criteria was utilized. Automated exposure control was utilized for the study. A dose lowering technique was utilized adhering to the principles of ALARA. CT DOSE: 1106.08 mGy.cm Findings: Visualized portions of the lung apices are unremarkable. There is mild emphysema. No cervical lymphadenopathy is present. No acute cervical spine fracture. The bilateral common carotid, cervical internal carotid and vertebral arteries are patent. There is mild plaque within the bilateral carotid bifurcations without stenosis. 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 No dissection within the neck is noted. There is no aneurysm within the neck. IMPRESSION: No stenosis or dissection within the bilateral common carotid, cervical internal carotid or vertebral arteries. ACT 112: Negative or not required by law. Electronically signed by: Sixto Hernandez M.D. 11/22/2021 5:54 PM Chest X-Ray 11/22/21 16:45 XR chest 1V portable CLINICAL HISTORY: stroke COMPARISON STUDY: No previous studies for comparison. FINDINGS: Lung volumes are normal. Lungs are clear. There is no pneumothorax or pleural effusion. Cardiac size is normal. Mediastinal contours are normal. There is no evidence for pulmonary edema. Multiple old right rib fractures are incidentally noted. IMPRESSION: No acute cardiopulmonary findings. ACT 112: Negative or not required by law. Electronically signed by: Sixto Hernandez M.D. 11/22/2021 5:08 PM Code Status & VTE Plan VTE Prophylaxis Plan VTE Prophylaxis will be ordered: Yes
[2021-11-22] MEDS ORDERED: POLYETHYLENE (MIRALAX) 17 GM PACK PO PRN (23:54)
[2021-11-22] MEDS ORDERED: DEXTROSE 50% 50 ML SYRINGE IV PRN (23:54)
[2021-11-22] MEDS ORDERED: CARBOHYDRATES FOR HYPOGLYCEMIA PO PRN (23:54)
[2021-11-22] MEDS ORDERED: ACETAMINOPHEN 325 MG TAB PO PRN (23:54)
[2021-11-22] MEDS ORDERED: ENOXAPARIN INJ 40 MG/0.4 ML SYR SQ SCH (23:54)
[2021-11-22] MEDS ORDERED: ALUMINUM/MAGNESIUM SUSP 30 ML UDC PO PRN (23:54)
[2021-11-22] MEDS ORDERED: GLUCAGON FOR INJ 1 MG VIAL SQ PRN (23:54)
[2021-11-22] MEDS ORDERED: GLUCOSE 40% GEL 15 GM TUBE PO PRN (23:54)
[2021-11-22] MEDS ORDERED: GLUCOSE 10 TABS/TUBE PO PRN (23:54)
[2021-11-22] MEDS ORDERED: PHARMACIST DISCHARGE MED REC CONSULT PRN (23:54)
[2021-11-22] MEDS ORDERED: ONDANSETRON INJ 2 MG/ML 2 ML VIAL IV PRN (23:54)
[2021-11-23] MEDS ORDERED: PATIENT'S HEIGHT AND/OR WEIGHT NEEDED SCH (00:15)
[2021-11-23] MEDS: INSULIN ASPART PER UNIT SC SCH ×5 (00:34→21:29)
[2021-11-23] MEDS: ATORVASTATIN 40 MG TAB PO SCH ×2 (01:20→21:43)
[2021-11-23] MEDS: INSULIN GLARGINE SOLOSTAR 100 UNITS/ML 3 ML PEN SC SCH ×3 (01:21→21:41)
[2021-11-23] MEDS: LEVOTHYROXINE SODIUM 112 MCG TABLET PO SCH (05:31)
[2021-11-23 06:24] LABS: Basophils # (auto) 0.02 K/uL (0-0.2); Basophils % (auto) 0.3 %; Eosinophils # (auto) 0.05 K/uL (0-0.5); Eosinophils % (auto) 0.9 %; Hematocrit (blood only) 36.3 % (37-47); Hemoglobin 12.7 g/dL (12.0-16.0); Immature Granulocytes # (auto) 0.01 K/uL (0.00-0.02); Immature Granulocytes % (auto) 0.2 %; Lymphocytes # (auto) 1.87 K/uL (1.2-3.4); Mean Corpuscular Hemoglobin 34.4 pg (25-34); Mean Corpuscular Volume 98.4 fL (80-100); Mean Platelet Volume 10.4 fL (7.4-10.4); Monocytes # (auto) 0.38 K/uL (0.11-0.59); Monocytes % (auto) 6.5 %; Neutrophils # (auto) 3.52 K/uL (1.4-6.5); Neutrophils % (auto) 60.1 %; Platelet Count 319 K/uL (130-400); RDW Standard Deviation 50.8 fL (36.4-46.3); Red Blood Count 3.69 M/uL (4.2-5.4); White Blood Count 5.85 K/uL (4.8-10.8)
[2021-11-23 06:35] LABS: BUN Creatinine Ratio 14.9 (10-20); Creatinine Clr Calc Pharmacy 74.3 ml/min; Est GFR (African American) 106.2 ml/min; Est GFR (Non-African American) 91.6 ml/min; Potassium 3.8 mmol/L (3.5-5.1)
[2021-11-23] MEDS: ENOXAPARIN INJ 40 MG/0.4 ML SYR SQ SCH (08:50)
[2021-11-23] MEDS: NICOTINE 21 MG/24 HR TDSY TD SCH (08:50)
[2021-11-23] MEDS: CALCIUM 600MG + VIT D 400 IU TAB PO SCH (08:51)
[2021-11-23] MEDS: ASPIRIN 81 MG CHEW PO SCH (08:51)
[2021-11-23] MEDS: VENLAFAXINE HCL XR 37.5 MG CAPXR PO SCH (08:51)
[2021-11-23] MEDS: buPROPion XL 300 MG TABCR PO SCH (08:51)
[2021-11-23] MEDS: clonazePAM 0.5 MG TAB PO PRN (08:54)
[2021-11-23] MEDS ORDERED: LORazepam 0.5 MG TAB PO ONE (10:15)
[2021-11-23] MEDS ORDERED: SODIUM CHLORIDE 0.9% 1000ML 1,000 ML IV ONE (10:37)
--- NOTE | 2021-11-23 11:46 | Electrocardiogram Report ---
Test Reason : Blood Pressure : / mmHG Vent. Rate : 078 BPM Atrial Rate : 078 BPM P-R Int : 138 ms QRS Dur : 088 ms QT Int : 386 ms P-R-T Axes : 060 002 068 degrees QTc Int : 440 ms Normal sinus rhythm Low voltage QRS Cannot rule out Anterior infarct , age undetermined Abnormal ECG When compared with ECG of 03-JAN-2015 12:31, Minimal criteria for Anterior infarct are now Present Confirmed by Bogdan Vergara ([id number]) on 11/23/2021 11:46:25 AM Referred By: REFERRED SELF Confirmed By:Bogdan Vergara
--- NOTE | 2021-11-23 12:03 | Electrocardiogram Report ---
Test Reason : Blood Pressure : / mmHG Vent. Rate : 073 BPM Atrial Rate : 073 BPM P-R Int : 142 ms QRS Dur : 088 ms QT Int : 392 ms P-R-T Axes : 058 012 068 degrees QTc Int : 431 ms Normal sinus rhythm Normal ECG When compared with ECG of 22-NOV-2021 16:33, (unconfirmed) Minimal criteria for Anterior infarct are no longer Present Confirmed by Bogdan Vergara ([id number]) on 11/23/2021 12:02:40 PM Referred By: REFERRED SELF Confirmed By:Bogdan Vergara
--- NOTE | 2021-11-23 12:55 | Magnetic Resonance Report ---
Brain MRI WITHOUT CONTRAST HISTORY: Dizziness. stroke like symptoms TECHNIQUE: Multiplanar multisequence MRI of the brain was performed without the use of contrast. COMPARISON STUDY: Head CTA 11/22/2021. FINDINGS: There is a single punctate focus of restricted diffusion seen at the right posterior pontom edullary the major vascular flow-voids at the skull base are maintained. Hypoplastic distal vertebral arteries and basilar artery are again noted. This is likely developmental. The paranasal sinuses and mastoid air cells are clear. Junction best seen on axial image 7. This is consistent with a small ac [place] infarct. No additional areas of restricted diffusion identified within the brain. Remaining midli ne structures are intact. The ventricles and sulci demonstrate mild age-related involutional changes. A small focus of T2 hyperintensity at the suspected infarct likely represents edema. No significant mass effect or midline shift. There are few scattered punctate foci of T2 hyperintensity within the p eriventricular white matter which are nonspecific but favor microvascular ischemic change. There is n o mass or hematoma identified within the brain. IMPRESSION: A punctate acute infarct within the right posterior pontomedullary junction. ACT 112: Negative or not required by law. Electronically signed by: Yo Jean M.D. 11/23/2021 12:52 PM
--- NOTE | 2021-11-23 13:51 | Consultation Report ---
NEUROLOGY CONSULTATION NOTE DATE OF CONSULTATION: 11/23/2021. CHIEF COMPLAINT: Vertigo/nausea. HISTORY OF PRESENT ILLNESS: A 66-year-old female with a history of hypertension and type 2 diabetes, admitted yesterday with vertigo, associated with vomiting. Symptoms started in the morning after her coffee. Vertigo persisted throughout the day and was worse with head movement. She was recently diagnosed with acute diverticulitis in the last month and was started on antibiotic at [facility]. This was scheduled to stop on Wednesday. She had no diarrhea, headache or chest pain. No speech changes. She had no weakness. No history of prior stroke or myocardial infarction. She was noted to have nystagmus on exam and an ataxic gait in the ER. Neurology was consulted upon admission. ALLERGIES: No known drug allergies. HOME MEDICATIONS: Norvasc, aspirin, Wellbutrin, calcium, clonazepam, insulin, Synthroid, lisinopril, multivitamin, pravastatin, Effexor. PAST MEDICAL HISTORY: Insulin-dependent diabetes, hyperlipidemia, hypertension, hypothyroidism, major depressive disorder, tobacco use. PAST SURGICAL HISTORY: , tonsillectomy. FAMILY HISTORY: Brother had hypertension. SOCIAL HISTORY: She smokes 20 cigarettes per day and is a current smoker. She does drink beer and wine occasionally, 4 or more drinks per week. She is . She is retired. REVIEW OF SYSTEMS: Pertinent for vertigo, nausea/vomiting and blurry vision as well as balance difficulty. All other review of systems was negative. PHYSICAL EXAMINATION: VITAL SIGNS: Blood pressure 123/78, pulse is 69, respiratory rate 20, temperature 36.8 degrees Celsius, oxygen saturation is 92% on room air. GENERAL: The patient appears stated age, in no acute distress. HEENT: Head is atraumatic, normocephalic. Eyes are midline. Normal eyelids. No conjunctival injection. No ptosis. Breathing is nonlabored. NECK: Supple. LUNGS: Normal respiratory effort. CARDIAC: Pulses are intact. ABDOMEN: Nondistended. SKIN: No skin rash. PSYCHIATRIC: Her mood is normal. NEUROLOGIC: She is awake, alert, oriented to person, place, and time. Speech is clear. No aphasia. Extraocular muscles intact with nystagmus noted on right gaze. No ptosis. Pupils are symmetric. Tongue is midline. No gaze deviation. No tremor or myoclonic jerks. No ataxia with [id number] testing. Some bradykinesias. No focal weakness. Sensation is intact to light touch. Toes are downgoing. No ankle clonus. Negative Arvin sign. Patient unsteady on her feet - wide based. DIAGNOSTIC TESTING AND LABORATORY VALUES: Head and neck CTA showed no acute intracranial findings. No central vessel occlusion or intracranial aneurysm, large bilateral posterior communicating arteries, diminutive of basilar and bilateral vertebral arteries, which is likely congenital. Chest x-ray showed no acute cardiopulmonary findings. ASSESSMENT AND PLAN: A 66-year-old woman with a history of insulin-dependent diabetes, hypertension, hyperlipidemia, and current smoker on ASA 81 mg daily, admitted with an acute vestibular syndrome, due to a pontomedullary stroke. Etiology likely small vessel in etiology. Reviewed imaging with patient. Recommend ASA 81 mg daily and PLavix 75 mg daily for 3 weeks then Plavix 75 mg daily. Agree with starting Lipitor 40 mg daily. Discussed smoking cessation. PT/OT for rehab needs. Outpatient neurology follow up in 8 weeks. Job ID: [id number] [facility]
[2021-11-23] MEDS: CLOPIDOGREL BISULFATE 75 MG TAB PO SCH (14:14)
--- NOTE | 2021-11-23 14:29 | Hospitalist Progress Note ---
Date of Service November 23, 2021 Assessment & Plan (1) Vertigo: Plan: Acute CVA: POA --MRI:A punctate acute infarct within the right posterior pontomedullary junction. --Neck CTA:No stenosis or dissection within the bilateral common carotid, cervical internal carotid or vertebral arteries. --Head CTA:No acute intracranial findings. No central vessel occlusion or intracranial aneurysm. Large bilateral posterior communicating arteries. Diminutive basilar and bilateral vertebral arteries which is likely congenital. --ECHO pending --LDL:65 --Continue Aspirin --Started on Plavix, Lipitor --Appreciate Neurology Input Speech, PT/OT eval Fall precautions (2) HTN (hypertension): Plan: chronic, stable Permissive hypertension allowed in setting of acute CVA (3) Tobacco use disorder: Plan: chronic smoker, encouraged to quit. Nicotine Patch (4) Hypothyroidism: Plan: chronic, stable TSH WNL Continue levothyroxine (5) Dyslipidemia: Plan: Pravastatin changed to Lipitor Depression Denies any suicidal thoughts Continues home meds Consulted Psychiatry (Patient's Request) (6) DVT prophylaxis: Plan: Lovenox SQ Code Status Full Code Admission and Anticipated Discharge Date Admission Date: November 22, 2021 Subjective Patient is seen and examined at bedside States having dizziness, blurred vision and feels depressed Denies any chest pain, shortness of breath, abdominal pain, focal weakness Discussed with neurology today Review of Systems Review of Systems: All systems reviewed & are unremarkable except as noted in Subjective Physical Exam Physical Exam: Physical Exam: Vitals signs as noted above General Appearance:Moderately built and nourished, no apparent distress Head: normocephalic, Atraumatic Eyes: normal inspection, EOMI Neck: supple, Trachea midline Respiratory/Chest: Normal breath sounds, CTA, No accessory muscle use Cardiovascular: S1, S2, No murmur Abdomen/GI:Soft, Non tender, Bowel sounds present Extremities/Musculoskeletal:normal inspection, no edema Neurologic/Psych:AAOX3, +Nystagmus, Balance issues Skin: normal color, warm Results & Data Results & Data ([facility]) Vital Signs (Past 12 Hours) Vital Signs Temp Pulse Pulse Resp BP Pulse Ox 11/23/21 13:39 69 11/23/21 11:50 36.9 C 71 18 92 11/23/21 07:28 36.8 C 69 20 123/78 92 11/23/21 03:20 36.8 C 69 18 106/65 91 Laboratory Results Short CBC 11/22/21 11/23/21 Range/Units 16:49 05:39 WBC 6.95 5.85 (4.8-10.8) K/uL Hgb 13.0 12.7 (12.0-16.0) g/dL Hct 38.4 36.3 L (37-47) % Plt Count 328 319 (130-400) K/uL BMP 11/22/21 11/23/21 16:49 05:39 Sodium 136 138 Potassium 3.9 3.8 Chloride 104 104 Carbon Dioxide 26 27 BUN 11 10 Creatinine 0.74 0.67 Glucose 187 H 172 H Calcium 9.2 9.0 Liver Function 11/22/21 Range/Units 16:49 Total Bilirubin 0.4 (0.2-1.0) mg/dl AST 14 (13-39) U/L ALT 13 (7-52) U/L Alkaline Phosphatase 67 (34-104) U/L Albumin 3.8 (3.4-5.0) gm/dl Urine 11/22/21 Range/Units 19:00 Urine Color Yellow Urine Appearance Clear (Clear) Urine pH 5.0 (4.5-7.5) Ur Specific [place] > 1.045 H (1.000-1.030) Urine Protein Negative (Negative) Urine Glucose (UA) 2+ H (Negative)
[2021-11-23] MEDS: MELATONIN 3 MG TAB PO PRN (21:55)
[2021-11-24] MEDS: LEVOTHYROXINE SODIUM 112 MCG TABLET PO SCH (05:24)
[2021-11-24 06:14] LABS: Basophils # (auto) 0.01 K/uL (0-0.2); Basophils % (auto) 0.2 %; Eosinophils # (auto) 0.07 K/uL (0-0.5); Eosinophils % (auto) 1.3 %; Hematocrit (blood only) 33.6 % (37-47); Hemoglobin 11.4 g/dL (12.0-16.0); Lymphocytes # (auto) 2.06 K/uL (1.2-3.4); Lymphocytes % (auto) 38.5 %; Mean Corpuscular Hemoglobin 33.2 pg (25-34); Mean Corpuscular Hgb Conc 33.9 g/dL (32-36); Mean Platelet Volume 9.8 fL (7.4-10.4); Monocytes # (auto) 0.44 K/uL (0.11-0.59); Monocytes % (auto) 8.2 %; Neutrophils # (auto) 2.77 K/uL (1.4-6.5); Neutrophils % (auto) 51.8 %; Platelet Count 257 K/uL (130-400); RDW Coefficient of Variation 13.9 % (11.5-14.5); RDW Standard Deviation 49.6 fL (36.4-46.3); Red Blood Count 3.43 M/uL (4.2-5.4); White Blood Count 5.35 K/uL (4.8-10.8)
[2021-11-24 06:34] LABS: BUN Creatinine Ratio 9.9 (10-20); Calcium 8.9 mg/dl (8.5-10.1); Creatinine Clr Calc Pharmacy 70.1 ml/min; Est GFR (African American) 102.9 ml/min; Est GFR (Non-African American) 88.8 ml/min; Potassium 3.7 mmol/L (3.5-5.1)
[2021-11-24 07:32] LABS: Estimated Average Glucose 209 mg/dl; Hemoglobin A1C 8.9 % (4.5-5.6)
[2021-11-24] MEDS: INSULIN GLARGINE SOLOSTAR 100 UNITS/ML 3 ML PEN SC SCH ×2 (08:41→22:13)
[2021-11-24] MEDS: INSULIN ASPART PER UNIT SC SCH ×4 (08:42→22:11)
[2021-11-24] MEDS: clonazePAM 0.5 MG TAB PO PRN (08:43)
[2021-11-24] MEDS: ASPIRIN 81 MG CHEW PO SCH (08:43)
[2021-11-24] MEDS: CALCIUM 600MG + VIT D 400 IU TAB PO SCH (08:43)
[2021-11-24] MEDS: ENOXAPARIN INJ 40 MG/0.4 ML SYR SQ SCH (08:43)
[2021-11-24] MEDS: NICOTINE 21 MG/24 HR TDSY TD SCH (08:43)
[2021-11-24] MEDS: CLOPIDOGREL BISULFATE 75 MG TAB PO SCH (08:43)
[2021-11-24] MEDS: VENLAFAXINE HCL XR 37.5 MG CAPXR PO SCH (08:43)
[2021-11-24] MEDS: buPROPion XL 300 MG TABCR PO SCH (08:43)
--- NOTE | 2021-11-24 10:57 | Psychiatric Consultation ---
Date of Consultation November 24, 2021 Impression / Recommendations Impression 66 yo female with recurrent depression, cross tapered Lexapro to low dose Effexor in combination with Wellbutrin. (1) Major depression: referral for outpatient psychiatry and therapy per liaison possible that protracted discontinuation syndrome from Lexapro and/or side effects of 2 antidepressants that impact NE could have contributed to subjective dizziness. educated re: Klonopin as fall risk in patients >65 since having PT assessment. Risk Factors Assessment Do You Have Access To A Gun?: No Psych History Identifying Data 66 yo female admit on 11/22/21 for vertigo/stroke like symptoms. Consult is by Dr. Sandoval for depression. Chief Complaint "yeah I've wanted therapy and to see a psychiatrist for awhile". History of Present Illness Patient reported loneliness as lives alone since in 2007. She gets frustrated with ongoing medical issues, had diverticulitis week prior to admission. States she is taking meds consistently but recent change from Lexapro to Effexor about 4 weeks ago. PHQ-9 13, 0 on question 9. Scores for anhedonia, feeling down every day, poor appetite and energy, poor concentration. Past Psychiatric History Previous Psych History: prior outpatient with [facility] Outpatient Services: none currently Previous Psych Admissions: 2015 [place], 2017 [facility] for depression/SI Do You Have Access To A Gun?: No Past Medication Trials: Lexapro, Wellbutrin, Paxil, alprazolam, klonopin. Allergies Allergy/AdvReac Type Severity Reaction Status Date / Time No Known Allergies Allergy Verified 11/22/21 17:54 Home Medications Medication Instructions Recorded Confirmed Type amlodipine 2.5 mg tablet 2.5 mg PO HS 11/22/21 11/22/21 History aspirin 81 mg chewable tablet 81 mg PO DAILY 11/22/21 11/22/21 History bupropion HCl 300 mg 24 hr tablet, 300 mg PO QAM 11/22/21 11/22/21 History extended release calcium carbonate 600 mg-vitamin 1 cap PO DAILY 11/22/21 11/22/21 History D3 5 mcg (200 unit) capsule (Calcium 600 + D(3)) clonazepam 0.5 mg tablet 0.5 mg PO DAILY PRN 11/22/21 11/22/21 History insulin aspart U-100 100 unit/mL 0 sliding scale dose SUBCUT TIDM 11/22/21 11/22/21 History (3 mL) subcutaneous pen (Novolog Flexpen U-100 Insulin aspart) insulin glargine 100 unit/mL (3 0 unit SUBCUT HS 11/22/21 11/22/21 History mL) subcutaneous pen (Basaglar KwikPen U-100 Insulin) levothyroxine 112 mcg tablet 112 mcg PO DAILYBB 11/22/21 11/22/21 History (Euthyrox) lisinopril 40 mg tablet 40 mg PO DAILY 11/22/21 11/22/21 History multivitamin 1 tab PO DAILY 11/22/21 11/22/21 History pravastatin 40 mg tablet 40 mg PO HS 11/22/21 11/22/21 History venlafaxine 37.5 mg 37.5 mg PO QAM 11/22/21 11/22/21 History capsule,extended release 24 hr Family History sister committed suicide (7 years ago by hanging), father Etoh Substance Abuse History denies Personal History Childhood: "normal" Highest Grade Completed: High School Graduate 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[employer]) Number Of Children: daughter Ana is supportive Beliefs That Will Affect Care: None History of Legal Problems: denied Psychological Trauma History Comment: denied Patient History Medical History Diabetes mellitus Dyslipidemia HTN (hypertension) Hypothyroidism Major depressive disorder, recurrent severe without psychotic features Tobacco use disorder Surgical History History of Hx of tonsillectomy Family History Brother Hypertension Social History Smoking Status: Current every day smoker Tobacco Type: Cigarettes Cigarettes Per Day: 0.5; Tobacco Cessation Education Requested by Patient: No Hx Alcohol Use: Yes Alcohol type: beer and wine Alcohol Intake Frequency: 4 or More x per/Week Hx Substance Use: No Preferred Language: Russian Communication Ability: Effective Polisher Aluminum Required: No Beliefs That Will Affect Care: None marital status: / Current Living Situation: Alone current occupational status: retired Feels Safe at Home: Yes Safety Concerns: Feels Safe At This Time Assistive Devices: Denture - Upper, Denture - Lower and Glasses Physical Exam Psychiatric: Orientation: alert, oriented to person and oriented to place Apperance: appropriately groomed Eye Contact: good eye contact Motor Behavior: no abnormal motor movements Speech: normal rate/rhythm/volume of speech Affect: + depressed affect Mood: + depressed mood Thought Pr ocess: goal directed thought process Thought Content: reality based without delusions Suicidal Thoughts: denies suicidal thoughts Homicidal Thoughts: denies homicidal thoughts Hallucinations: no auditory hallucinations and no visual hallucinations Cognition: attention grossly intact and language grossly intact Insight: + limited insight Judgement: + limited judgement Vital Signs (Past 24 Hours): Last Vital Signs Temp 36.5 C 11/24/21 07:00 Pulse 66 11/24/21 07:01 Resp 18 11/24/21 07:00 BP 142/67 H 11/24/21 07:00 Pulse Ox 91 11/24/21 07:00 Review of Systems All systems reviewed & are unremarkable except as noted in HPI & below (trudyne ss, seeing PT) Results & Data (PSY) Laboratory Results recent TSH normal 11/24/21 11/24/21 11/24/21 Range/Units 07:33 06:04 06:04 WBC 5.35 (4.8-10.8) K/uL RBC 3.43 L (4.2-5.4) M/uL Hgb 11.4 L (12.0-16.0) g/dL Hct 33.6 L (37-47) % MCV 98.0 (80-100) fL MCH 33.2 (25-34) pg MCHC 33.9 (32-36) g/dL RDW Std Deviation 49.6 H (36.4-46.3) fL RDW Coeff of Cindy 13.9 (11.5-14.5) % Plt Count 257 (130-400) K/uL MPV 9.8 (7.4-10.4) fL Immature Gran % (Auto) 0.0 % Neut % (Auto) 51.8 % Lymph % (Auto) 38.5 % Culberson % (Auto) 8.2 % Eos % (Auto) 1.3 % Baso % (Auto) 0.2 % Neut # (Auto) 2.77 (1.4-6.5) K/uL Lymph # (Auto) 2.06 (1.2-3.4) K/uL Culberson # (Auto) 0.44 (0.11-0.59) K/uL Eos # (Auto) 0.07 (0-0.5) K/uL Baso # (Auto) 0.01 (0-0.2) K/uL Immature Gran # (Auto) 0.00 (0.00-0.02) K/uL Sodium 139 (136-145) mmol/L Potassium 3.7 (3.5-5.1) mmol/L Chloride 106 (98-107) mmol/L Carbon Dioxide 28 (21-32) mmol/L Anion Gap 5 (3-11) BUN 7 (6-23) mg/dl Creatinine 0.71 (0.6-1.2) mg/dl Est Cr Clr Drug Dosing 70.1 ml/min Est GFR ( Amer) 102.9 ml/min Est GFR (Non-Af Amer) 88.8 ml/min BUN/Creatinine Ratio 9.9 L (10-20) Glucose 81 (70-99(Fasting)) mg/dl POC Glucose 75 (70-99) mg/dl Estimat Average Glucose mg/dl Hemoglobin A1c (4.5-5.6) % Calcium 8.9 (8.5-10.1) mg/dl 11/23/21 11/23/21 11/23/21 Range/Units 20:08 16:55 11:59 WBC (4.8-10.8) K/uL RBC (4.2-5.4) M/uL Hgb (12.0-16.0) g/dL Hct (37-47) % MCV (80-100) fL MCH (25-34) pg MCHC (32-36) g/dL RDW Std Deviation (36.4-46.3) fL RDW Coeff of Cindy (11.5-14.5) % Plt Count (130-400) K/uL MPV (7.4-10.4) fL Immature Gran % (Auto) % Neut % (Auto) % Lymph % (Auto) % Culberson % (Auto) % Eos % (Auto) % Baso % (Auto) % Neut # (Auto) (1.4-6.5) K/uL Lymph # (Auto) (1.2-3.4) K/uL Culberson # (Auto) (0.11-0.59) K/uL Eos # (Auto) (0-0.5) K/uL Baso # (Auto) (0-0.2) K/uL Immature Gran # (Auto) (0.00-0.02) K/uL Sodium (136-145) mmol/L Potassium (3.5-5.1) mmol/L Chloride (98-107) mmol/L Carbon Dioxide (21-32) mmol/L Anion Gap (3-11) BUN (6-23) mg/dl Creatinine (0.6-1.2) mg/dl Est Cr Clr Drug Dosing ml/min Est GFR ( Amer) ml/min Est GFR (Non-Af Amer) ml/min BUN/Creatinine Ratio (10-20) Glucose (70-99(Fasting)) mg/dl POC Glucose 109 H 150 H 153 H (70-99) mg/dl Estimat Average Glucose mg/dl Hemoglobin A1c (4.5-5.6) % Calcium (8.5-10.1) mg/dl 11/23/21 Range/Units 05:39 WBC (4.8-10.8) K/uL RBC (4.2-5.4) M/uL Hgb (12.0-16.0) g/dL Hct (37-47) % MCV (80-100) fL MCH (25-34) pg MCHC (32-36) g/dL RDW Std Deviation (36.4-46.3) fL RDW Coeff of Cindy (11.5-14.5) % Plt Count (130-400) K/uL MPV (7.4-10.4) fL Immature Gran % (Auto) % Neut % (Auto) % Lymph % (Auto) % [place]bers[place] % (Auto) % Eos % (Auto) % Baso % (Auto) % Neut # (Auto) (1.4-6.5) K/uL Lymph # (Auto) (1.2-3.4) K/uL [place] # (Auto) (0.11-0.59) K/uL Eos # (Auto) (0-0.5) K/uL Baso # (Auto) (0-0.2) K/uL Immature Gran # (Auto) (0.00-0.02) K/uL Sodium (136-145) mmol/L Potassium (3.5-5.1) mmol/L Chloride (98-107) mmol/L Carbon Dioxide (21-32) mmol/L Anion Gap (3-11) BUN (6-23) mg/dl Creatinine (0.6-1.2) mg/dl Est Cr Clr Drug Dosing ml/min Est GFR ( Amer) ml/min Est GFR (Non-Af Amer) ml/min BUN/Creatinine Ratio (10-20) Glucose (70-99(Fasting)) mg/dl POC Glucose (70-99) mg/dl Estimat Average Glucose 209 mg/dl Hemoglobin A1c 8.9 H (4.5-5.6) % Calcium (8.5-10.1) mg/dl Medications Administered Acetaminophen (Acetaminophen 325 Mg Tab) 650 mg PO Q4H PRN PRN Reason: Pain or Fever Stop: 12/22/21 23:53 Last Admin: 11/24/21 07:52 Dose: 650 mg Documented by: [id number] Aspirin (Aspirin 81 Mg Chew) 81 mg PO DAILY [facility] Stop: 12/23/21 08:59 Last Admin: 11/24/21 08:43 Dose: 81 mg Documented by: [id number] Admin: 11/23/21 08:51 Dose: 81 mg Documented by: [id number] Atorvastatin Calcium (Atorvastatin 40 Mg Tab) 40 mg PO [facility] Stop: 12/22/21 23:53 Last Admin: 11/23/21 21:43 Dose: 40 mg Documented by: [id number] Admin: 11/23/21 01:20 Dose: 40 mg Documented by: [id number] Bupropion HCl (Bupropion Xl 300 Mg Tabcr) [facility] Stop: 12/23/21 08:59 Last Admin: 11/24/21 08:43 Dose: 300 mg Documented by: [id number] Admin: 11/23/21 08:51 Dose: 300 mg Documented by: [id number] Clonazepam (Clonazepam 0.5 Mg Tab) 0.5 mg PO DAILY PRN PRN Reason: Anxiety Stop: 12/22/21 23:53 Last Admin: 11/24/21 08:43 Dose: 0.5 mg Documented by: [id number] Admin: 11/23/21 08:54 Dose: 0.5 mg Documented by: [id number] Clopidogrel Bisulfate (Clopidogrel Bisulfate 75 Mg Tab) 75 mg PO QAM [facility] Stop: 12/23/21 13:14 Last Admin: 11/24/21 08:43 Dose: 75 mg Documented by: [id number] Admin: 11/23/21 14:14 Dose: 75 mg Documented by: [id number] Enoxaparin Sodium (Enoxaparin Inj 40 Mg/0.4 Ml Syr) 40 [facility] SQ [facility] Stop: 12/23/21 08:59 Last Admin: 11/24/21 08:43 Dose: 40 mg Documented by: [id number] Admin: 11/23/21 08:50 Dose: 40 mg Documented by: [id number] Insulin Aspart (Insulin Aspart Per Unit) 0 units SC ACHS [facility] Stop: 12/22/21 23:53 Last Admin: 11/24/21 08:42 Dose: 1 units Documented by: [id number] Cosigned by: [id number] Admin: 11/23/21 21:29 Dose: Not Given Documented by: [id number] Admin: 11/23/21 17:20 Dose: 2 units Documented by: [id number] Cosigned by: [id number] Admin: 11/23/21 13:21 Dose: Not Given Documented by: [id number] Admin: 11/23/21 08:52 Dose: 2 units Documented by: [id number] Cosigned by: [id number] Admin: 11/23/21 00:34 Dose: Not Given Documented by: [id number] Insulin Glargine (Insulin Glargine Solostar 100 Units/Ml 3 Ml Pen) 10 units SC BID [facility] Stop: 12/22/21 23:53 Last Admin: 11/24/21 08:41 Dose: 10 units Documented by: [id number] Cosigned by: [id number] Admin: 11/23/21 21:41 Dose: 10 units Documented by: [id number] Cosigned by: [id number] Admin: 11/23/21 08:52 Dose: 10 units Documented by: [id number] Cosigned by: [id number] Admin: 11/23/21 01:21 Dose: 10 units Documented by: [id number] Cosigned by: [id number] Levothyroxine Sodium (Levothyroxine Sodium 112 Mcg Tablet) 112 mcg PO DAILYBB [facility] Stop: 12/23/21 06:29 Last Admin: 11/24/21 05:24 Dose: 112 mcg Documented by: [id number] Admin: 11/23/21 05:31 Dose: 112 mcg Documented by: [id number] Melatonin (Melatonin 3 Mg Tab) 3 mg PO HS PRN PRN Reason: Sleep Stop: 12/23/21 21:48 Last Admin: 11/23/21 21:55 Dose: 3 mg Documented by: [id number] Miscellaneous (Remove Nicoderm Patch) 1 ea N/A DAILY@[id number] [facility] Stop: 12/23/21 08:58 Last Admin: 11/24/21 08:44 Dose: 1 ea Documented by: [id number] Admin: 11/23/21 08:51 Dose: 1 ea Documented by: [id number] Multivitamins/Minerals (Calcium 600mg + Vit D 400 Iu Tab) 1 tab PO DAILY [facility] Stop: 12/23/21 08:59 Last Admin: 11/24/21 08:43 Dose: 1 tab Documented by: [id number] Admin: 11/23/21 08:51 Dose: 1 tab Documented by: [id number] Nicotine (Nicotine 21 Mg/24 Hr Tdsy) 21 mg TD QAM [facility] Stop: 12/23/21 08:59 Last Admin: 11/24/21 08:43 Dose: 21 mg Documented by: [id number] Admin: 11/23/21 08:50 Dose: 21 mg Documented by: [id number] Ondansetron HCl (Ondansetron Inj 2 Mg/Ml 2 Ml Vial) 4 mg IV Q6H PRN PRN Reason: Nausea Stop: 12/22/21 23:53 Last Admin: 11/23/21 00:50 Dose: 4 mg Documented by: [id number] Venlafaxine HCl (Venlafaxine Hcl Xr 37.5 Mg Capxr) 37.5 mg PO QAM [facility] Stop: 12/23/21 08:59 Last Admin: 11/24/21 08:43 Dose: 37.5 mg Documented by: [id number] Admin: 11/23/21 08:51 Dose: 37.5 mg Documented by: [id number] Coding Level of Care Code 08218 [facility] Intl Hosp Care Lvl 2 Diagnoses Major depression F32.9
--- NOTE | 2021-11-24 15:21 | Hospitalist Progress Note ---
Date of Service November 24, 2021 Assessment & Plan (1) Vertigo: Plan: Acute CVA: POA --MRI:A punctate acute infarct within the right posterior pontomedullary junction. --Neck CTA:No stenosis or dissection within the bilateral common carotid, cervical internal carotid or vertebral arteries. --Head CTA:No acute intracranial findings. No central vessel occlusion or intracranial aneurysm. Large bilateral posterior communicating arteries. Diminutive basilar and bilateral vertebral arteries which is likely congenital. --ECHO: mild TR, EF 50-60%, No ASD, No Left Ventricular Thrombus --LDL:65 --Continue Aspirin, Plavix, Lipitor --Appreciate Neurology Input Speech, PT/OT eval Fall precautions Needs Rehab Placement Plan to continue aspirin, Plavix for 21 days and then Plavix alone (2) HTN (hypertension): Plan: chronic, stable Permissive hypertension allowed in setting of acute CVA (3) Tobacco use disorder: Plan: chronic smoker, encouraged to quit. Nicotine Patch Counselled to quit smoking (4) Hypothyroidism: Plan: chronic, stable TSH WNL Continue levothyroxine (5) Dyslipidemia: Plan: Pravastatin changed to Lipitor Depression Denies any suicidal thoughts Continues home meds Appreciate Psychiatry Input (6) DVT prophylaxis: Plan: Lovenox SQ Code Status Full Code Admission and Anticipated Discharge Date Admission Date: November 23, 2021 Subjective Patient is seen and examined at bedside Still has Dizziness/ balance issues Blurry vision resolved Had headache earlier today which improved with Tylenol Denies any chest pain, shortness of breath, abdominal pain Review of Systems Review of Systems: All systems reviewed & are unremarkable except as noted in Subjective Physical Exam Physical Exam: Physical Exam: Vitals signs as noted above General Appearance:Moderately built and nourished, no apparent distress Head: normocephalic, Atraumatic Eyes: normal inspection, EOMI Neck: supple, Trachea midline Respiratory/Chest: Normal breath sounds, CTA, No accessory muscle use Cardiovascular: S1, S2, No murmur Abdomen/GI:Soft, Non tender, Bowel sounds present Extremities/Musculoskeletal:normal inspection, no edema Neurologic/Psych:AAOX3, +Nystagmus, Balance issues Skin: normal color, warm Results & Data Results & Data ([facility]) Vital Signs (Past 12 Hours) Vital Signs Temp Pulse Pulse Resp BP Pulse Ox 11/24/21 11:58 36.7 C 65 18 142/73 H 94 04/25/22 07:01 66 11/24/21 07:00 36.5 C 72 18 142/67 H 91 11/24/21 03:29 36.7 C 68 18 113/67 94 Laboratory Results Short CBC 11/24/21 Range/Units 06:04 WBC 5.35 (4.8-10.8) K/uL Hgb 11.4 L (12.0-16.0) g/dL Hct 33.6 L (37-47) % Plt Count 257 (130-400) K/uL BMP 11/24/21 06:04 Sodium 139 Potassium 3.7 Chloride 106 Carbon Dioxide 28 BUN 7 Creatinine 0.71 Glucose 81 Calcium 8.9
[2021-11-24] MEDS: ATORVASTATIN 40 MG TAB PO SCH (19:58)
[2021-11-24] MEDS: MELATONIN 3 MG TAB PO PRN (22:17)
[2021-11-25] MEDS: LEVOTHYROXINE SODIUM 112 MCG TABLET PO SCH (06:14)
[2021-11-25 07:23] LABS: Basophils # (auto) 0.01 K/uL (0-0.2); Basophils % (auto) 0.2 %; Eosinophils % (auto) 1.9 %; Hematocrit (blood only) 35.7 % (37-47); Lymphocytes # (auto) 1.67 K/uL (1.2-3.4); Mean Corpuscular Hgb Conc 33.6 g/dL (32-36); Mean Corpuscular Volume 98.1 fL (80-100); Mean Platelet Volume 10.1 fL (7.4-10.4); Monocytes # (auto) 0.53 K/uL (0.11-0.59); Monocytes % (auto) 10.2 %; Neutrophils # (auto) 2.91 K/uL (1.4-6.5); Neutrophils % (auto) 55.7 %; Platelet Count 264 K/uL (130-400); RDW Coefficient of Variation 13.7 % (11.5-14.5); RDW Standard Deviation 49.1 fL (36.4-46.3); Red Blood Count 3.64 M/uL (4.2-5.4); White Blood Count 5.22 K/uL (4.8-10.8)
[2021-11-25 07:59] LABS: BUN Creatinine Ratio 8.8 (10-20); Calcium 9.2 mg/dl (8.5-10.1); Creatinine Clr Calc Pharmacy 70.5 ml/min; Est GFR (Non-African American) 76.8 ml/min; Potassium 4.1 mmol/L (3.5-5.1)
[2021-11-25] MEDS: INSULIN ASPART PER UNIT SC SCH ×2 (08:43→12:35)
[2021-11-25] MEDS: VENLAFAXINE HCL XR 37.5 MG CAPXR PO SCH (08:45)
[2021-11-25] MEDS: CALCIUM 600MG + VIT D 400 IU TAB PO SCH (08:45)
[2021-11-25] MEDS: NICOTINE 21 MG/24 HR TDSY TD SCH (08:45)
[2021-11-25] MEDS: buPROPion XL 300 MG TABCR PO SCH (08:45)
[2021-11-25] MEDS: CLOPIDOGREL BISULFATE 75 MG TAB PO SCH (08:45)
[2021-11-25] MEDS: ASPIRIN 81 MG CHEW PO SCH (08:45)
[2021-11-25] MEDS: INSULIN GLARGINE SOLOSTAR 100 UNITS/ML 3 ML PEN SC SCH (08:45)
[2021-11-25] MEDS: ENOXAPARIN INJ 40 MG/0.4 ML SYR SQ SCH (08:46)
[2021-11-25] MEDS: clonazePAM 0.5 MG TAB PO PRN (08:56)
--- NOTE | 2021-11-25 14:25 | Hospitalist Progress Note ---
Date of Service November 25, 2021 Assessment & Plan (1) Vertigo: Plan: Acute CVA: POA --MRI:A punctate acute infarct within the right posterior pontomedullary junction. --Neck CTA:No stenosis or dissection within the bilateral common carotid, cervical internal carotid or vertebral arteries. --Head CTA:No acute intracranial findings. No central vessel occlusion or intracranial aneurysm. Large bilateral posterior communicating arteries. Diminutive basilar and bilateral vertebral arteries which is likely congenital. --ECHO: mild TR, EF 50-60%, No ASD, No Left Ventricular Thrombus --LDL:65 --Continue Aspirin, Plavix, Lipitor --Appreciate Neurology Input Speech, PT/OT eval Fall precautions Plan to continue aspirin, Plavix for 21 days and then Plavix alone Plan to discharge to Rehab facility today (2) HTN (hypertension): Plan: chronic, stable Resume Lisinopril, Amlodipine tomorrow (3) Tobacco use disorder: Plan: chronic smoker, encouraged to quit. Nicotine Patch Counselled to quit smoking (4) Hypothyroidism: Plan: chronic, stable TSH WNL Continue levothyroxine (5) Dyslipidemia: Plan: Pravastatin changed to Lipitor Depression Denies any suicidal thoughts Continues home meds Appreciate Psychiatry Input (6) DVT prophylaxis: Plan: Lovenox SQ Code Status Full Code Disposition Rehab Admission and Anticipated Discharge Date Admission Date: November 23, 2021 Subjective Patient is seen and examined at bedside Dizziness improved but still has some balance issues Headache resolved No other complaints Denies any chest pain, shortness of breath, abdominal pain Plan to discharge to rehab facility today Review of Systems Review of Systems: All systems reviewed & are unremarkable except as noted in Subjective Physical Exam Physical Exam: Physical Exam: Vitals signs as noted above General Appearance:Moderately built and nourished, no apparent distress Head: normocephalic, Atraumatic Eyes: normal inspection, EOMI Neck: supple, Trachea midline Respiratory/Chest: Normal breath sounds, CTA, No accessory muscle use Cardiovascular: S1, S2, No murmur Abdomen/GI:Soft, Non tender, Bowel sounds present Extremities/Musculoskeletal:normal inspection, no edema Neurologic/Psych:AAOX3, +Nystagmus, Balance issues Skin: normal color, warm Results & Data Results & Data ([facility]) Vital Signs (Past 12 Hours) Vital Signs Temp Pulse Pulse Resp BP BP Pulse Ox 11/25/21 13:41 37 C 70 14 157/79 H 103/63 92 11/25/21 11:13 37 C 70 14 157/79 H 92 11/25/21 11:11 11/25/21 07:34 61 11/25/21 06:48 36.6 C 63 18 103/63 91 11/25/21 04:10 36.4 C L 62 20 120/69 93 Pulse Ox 11/25/21 13:41 11/25/21 11:13 11/25/21 11:11 92 11/25/21 07:34 11/25/21 06:48 11/25/21 04:10 Laboratory Results Short CBC 11/25/21 Range/Units 07:08 WBC 5.22 (4.8-10.8) K/uL Hgb 12.0 (12.0-16.0) g/dL Hct 35.7 L (37-47) % Plt Count 264 (130-400) K/uL BMP 11/25/21 07:08 Sodium 138 Potassium 4.1 Chloride 104 Carbon Dioxide 30 BUN 7 Creatinine 0.80 Glucose 129 H Calcium 9.2
[2021-11-25] MEDS ORDERED: STROKE PATIENT DISCHARGE STA (14:35)
--- NOTE | 2021-11-25 14:37 | Discharge Summary ---
Date of Service November 25, 2021 Admission HPI Per Admitting Provider 66 yo F smoker presents with vertigo associated with vomiting this morning after her am coffee. Vertigo has persisted all day today and is worse with any head movement. She was recently diagnosed with acute diverticulitis 3 weeks ago, and was on antibiotic therapy (treated at [facility]) until Wed. She denies diarrhea and has no headache, +blurry vision present and she feels off balance. No speech or word finding issues. No issues with arms or legs but has generalized dizziness, no weakness per se. No h/o stroke or IL. Has diabetes that is uncontrolled per her report. She does report depression related to pain with diverticulitis; that abdominal pain gone now. No CP, SOB, no headache, haven't been eating well with recent illness and with noted depression. Had vaginal itching and no discharge --took Monistat and the itching has improved. While on antibiotics she did have some difficulty urinating and felt some dysuria but this has since improved. No fevers or chills. There is a clear r otary nystagmus present on exam. ER physician described patient's gait as ataxic. Admission Exam Per Admitting Provider Physical Exam Physical Exam: CONSTITUTIONAL: WNWD, vitals as above, generally well- appearing,becomes symptomatic when moving her head side to side EYES: EOMI bilaterally, PERRL, normal conjunctivae, no scleral icterus,+rotary nystagmus when looking in both directions ENT: external ear and nose normal, oropharynx clear, no TM abnormality on the right ear, however cerumen impaction present on the left. No LAD NECK: trachea midline, no lymphadenopathy RESPIRATORY: clear to auscultation bilaterally, no crackles, rales or wheezes, normal respiratory effort CARDIOVASCULAR: regular rate and rhythm, S1 and 2 heard without murmurs, gallops or rubs, no JVD, no peripheral edema CHEST: inspection of chest was normal GASTROINTESTINAL: soft, nontender, ND, no guarding MUSCULOSKELETAL: strength 5/5 throughout, head is normocephalic and atraumatic SKIN: warm and dry NEUROLOGIC: patellar DTR 2/4 bilaterally, CN 2-12 grossly intact, no sensory deficit, normal cognition, normal speech, no tremor PSYCHIATRIC: alert cooperative and oriented to person, place and time. Principal Diagnosis Acute cerebrovascular accident Tobacco use disorder Discharge Data Allergies Allergy/AdvReac Type Severity Reaction Status Date / Time No Known Allergies Allergy Verified 11/22/21 17:54 Consultations 11/22/21 18:36 ED Decision to Admit Stat 11/22/21 23:54 Consult Neurology Routine 11/23/21 10:35 Consult Psychiatry Routine Ordered Studies 11/22/21 16:44 CT angio head wo/w Stat CT angio neck with con Stat 11/23/21 09:14 MR brain wo con Routine Hospital Course (1) Vertigo: Acute CVA: POA --MRI:A punctate acute infarct within the right posterior pontomedullary junction. --Neck CTA:No stenosis or dissection within the bilateral common carotid, cervical internal carotid or vertebral arteries. --Head CTA:No acute intracranial findings. No central vessel occlusion or intracranial aneurysm. Large bilateral posterior communicating arteries. Di minutive basilar and bilateral vertebral arteries which is likely congenital. --ECHO: mild TR, EF 50-60%, No ASD, No Left Ventricular Thrombus --LDL:65 --Continue Aspirin, Plavix, Lipitor --Appreciate Neurology Input Speech, PT/OT eval Fall precautions Plan to continue aspirin, Plavix for 21 days and then Plavix alone Plan to discharge to Rehab facility today (2) HTN (hypertension): chronic, stable Resume Lisinopril, Amlodipine tomorrow (3) Tobacco use disorder: chronic smoker, encouraged to quit. Nicotine Patch Counselled to quit smoking (4) Hypothyroidism: chronic, stable TSH WNL Continue levothyroxine (5) Dyslipidemia: Pravastatin changed to Lipitor Depression Denies any suicidal thoughts Continues home meds Appreciate Psychiatry Input (6) DVT prophylaxis: Lovenox SQ Code Status Full Code Disposition Rehab Total Time Total Time Spent Total Time Spent (In Minutes): 50 minutes Discharge Plan Discharge Items Patient Disposition: Transfer Inpatient Rehab Fac Reason For Visit: STROKE LIKE SYMPTOMS Discharge Diagnosis: Acute cerebrovascular accident Tobacco use disorder Activity: Per Instructions section Exercise/Sports: Gradually increase as tolerated Driving/Machine Use: No driving permitted until cleared by your neurologist. Non-emergency contact: Primary Care Provider and Neurologist Call non-emergency contact if: you have any medication questions, your symptoms worsen, your pain is concerning for you and you have a fever Follow-up/Referrals: [facility] [Other] - 01/02/22 2:00 pm (New patient packet will be mailed to patient to complete prior to first appointment. Medication managment appointment) Deepak Arriaga, DO [Primary Care Provider] - Diet: Carb Consistent or DM2 Addtl Attending Provider Instructions: Follow-up with your primary care physician Dr. Deepak Arriaga in 1 week upon discharge from rehab facility Follow-up with your neurologist Dr. Berry in 8 weeks Follow-up with your psychiatrist at [facility] as scheduled --- No driving permitted until cleared by your neurologist. --- Take aspirin 81 mg daily and Plavix 75 mg daily for 3 weeks and then Plavix 75 mg daily only as per your Neurologist --- Quit smoking tobacco as advised. No smoking while on nicotine patch. Seek immediate medical attention if your symptoms reoccur or worsen Please take all medications as instructed on discharge list below. Please call if you have any questions or problems. You can reach a [facility] hospitalist on duty at [facility] 24 hours a day by calling [phone] Risk Factors for Stroke: You can reduce your chances of stroke by working with your medical provider to adopt a healthy lifestyle. Some specific ways to lower your chance of stroke are: * If you are a smoker, now is the time to stop smoking cigarettes * If you are diabetic, improve the control of your blood sugars * Avoid excessive amounts of alcohol * Control high blood pressure * Lose weight if you are overweight * Be sure to lead an active lifestyle * Eat a healthy diet low in salt, cholesterol and fat You should know about other risk factors for stroke that you are unable to control. These include: * Age 55 years or older * Male gender * Certain racial groups: , or / * Family History of Stroke, Mini stroke or Heart Attack * Sickle Cell Disease Follow Up: It is important for you to keep your follow up appointments with your medical provider. Who to Call and When: Medical Emergencies: Call 911 immediately if you experience any of the following warning signs and symptoms of Stroke: * Sudden numbness or weakness of the face, arm or leg, especially on one side of the body * Sudden confusion, trouble speaking or understanding * Sudden trouble seeing in one or both eyes * Sudden trouble walking, dizziness, loss of balance or coordination * Sudden severe headache with no cause Do not delay calling 911 if you experience any warning signs or symptoms of a stroke. Delay in seeking medical attention may affect what treatments can be given to you. . Pending Studies at Discharge: No Stand-Alone Forms: Medications to Prevent Stroke, My [facility] Skilled Items Patient informed of condition?: Yes DNR: No Discharge Level of Care: Acute rehab Communicable Disease: No Discharge Prognosis: Stable Lines: None Urinary Catheter: No Medications and DC Order Prescriptions: New atorvastatin 40 mg Tablet 40 mg PO HS Qty: 30 RF: 1 clopidogrel 75 mg Tablet 75 mg PO QAM Qty: 30 RF: 1 nicotine [Nicoderm CQ] 21 mg/24 hr Patch 24 Hour 21 mg transdermal QAM Qty: 30 RF: 0 Continued multivitamin Tablet 1 tab PO DAILY RF: 0 venlafaxine 37.5 mg capsule,extended release 24hr 37.5 mg PO QAM RF: 0 clonazepam 0.5 mg tablet 0.5 mg PO DAILY PRN (Reason: Anxiety) RF: 0 amlodipine 2.5 mg tablet 2.5 mg PO HS RF: 0 aspirin 81 mg Tablet,Chewable 81 mg PO DAILY RF: 0 lisinopril 40 mg tablet 40 mg PO DAILY RF: 0 levothyroxine [Euthyrox] 112 mcg tablet 112 mcg PO DAILYBB RF: 0 insulin aspart U-100 [Novolog Flexpen U-100 Insulin] 100 unit/mL (3 mL) Insulin Pen 0 sliding scale dose subcut TIDM RF: 0 bupropion HCl 300 mg tablet extended release 24 hr 300 mg PO QAM RF: 0 Calcium 600 + D(3) 600 mg-5 mcg (200 unit) Capsule 1 cap PO DAILY RF: 0 Basaglar KwikPen U-100 Insulin 100 unit/mL (3 mL) insulin pen 0 unit SUBCUT HS RF: 0 Discontinued pravastatin 40 mg tablet 40 mg PO HS RF: 0 Discharge Orders: Discharge Order (Routine); Ordered 11/25/21 Ordered By: Vinayak Sandoval Admission Data Admit Date/Time: 11/23/21 14:23 Attending Provider: Vinayak Sandoval Admit Provider: Evi Almaraz Primary Care Provider: Deepak Arriaga Other Providers: Evi Almaraz ; John Berry ; Joann Sy ; Lindsay Smith ; Chelsea Doan ; [facility] Other Interventions: Discharge Summary Assessment (RN) Last Done: 11/25/21 13:41
[2021-11-25] MEDS ORDERED: amLODIPine BESYLATE 5 MG TAB PO SCH (21:00)
[2021-11-26] MEDS ORDERED: lisinopril 40 MG TAB PO SCH (09:00)
== END 2021-11-25 18:01 | DRG 65 ==
LOC: 2N 16:13 → ED 16:13 → SUATTDRO 19:51 → 2N 23:28

== ENCOUNTER 2021-12-24 19:55 | Inpatient (IN) ==
--- NOTE | 2021-12-24 20:06 | Emergency Department Note ---
Impression & Plan Abdominal pain, Acute hyponatremia, Tobacco use ED Provider Note NAME: ALBA DICKENS AGE: 66 SEX: F : 1955 ARRIVES VIA: Walk-In INFORMANT: Patient, ED PROVIDER(S): Carl Hill MD Chief Complaint: Abdominal pain HPI: Patient presents due to concern for abdominal pain that began in the middle of the night. The patient describes it is primarily epigastric and nonradiating. Patient states it does feel similar to diverticulitis but it is higher. Patient has had nausea but no vomiting. No recent falls or trauma. Patient does admit to having recurrence of smoking recently. The patient was diagnosed with a stroke for gait and balance issues in October 2021 is currently on aspirin and Plavix. Patient did try to take some Tylenol and has been taking it to where it was mildly relieving her discomfort but her most recent bout of pain did not seem to help. Patient denies any chest pains or shortness of breath. The patient denies any leg swelling. The patient states that she felt as though her legs felt like "rubber." Patient denies any focal weakness at this time. Patient denies any difficulty with urination or defecation has not noticed any blood in the urine or stool. ROS: See HPI for pertinent positives and negatives. A total of 10 systems were reviewed and otherwise negative. Past medical history: See below Surgical history: See below Social history: See below Physical Exam: GENERAL: NAD, wearing a mask, non-toxic. EYE EXAM: Normal conjunctiva. PERRL, no anisocoria and EOM's grossly intact w/o pain. NECK: Supple, no nuchal rigidity, no adenopathy, non-tender. No signs of meningismus. LUNGS: Clear to auscultation. Normal chest wall mechanics. HEART: NSR, no MRG. ABDOMEN: Abdomen soft, upper abdominal discomfort most prominent in the epigastrium, normo-active bowel sounds, no masses, no rebound or guarding. BACK: No CVA TTP. SKIN: No rashes and no bruising. UPPER EXTREMITIES: Upper extremities are grossly normal. LOWER EXTREMITIES: Grossly normal, no edema. NEURO EXAM: A&O x3, cranial nerves II-XII grossly intact, normal speech, moves all 4 extremities on command w/o issue. Differential diagnoses: Appendicitis, ovarian cyst, ovarian torsion, ectopic pre gnancy, TOA, PID, infections, diverticulitis, UTI, obstruction, mesenteric ischemia, aortic pathology, inflammatory bowel disease, renal colic, PUD, pancreatitis, biliary pathology, hernia, volvulus, constipation, as well as other pathologies. Course: Patient was seen and evaluated the bedside. Full history physical exam was performed. EKG interpreted by me Sinus, rate of 81, normal intervals, normal axis, no obvious ST elevations. Imaging Studies: See Below Cardiac monitoring: An order was placed for continuous cardiac monitoring. The monitor shows a rate of 72 with sinus rhythm. MDM: Patient was seen due to concern for abdominal pain. Blood work was obtained with CT abdomen pelvis. CT head also obtained given the patient's reported right leg weakness in triage although not evident on exam. Patient is on aspirin and Plavix. Patient is a nonfocal neurologic exam otherwise. Patient was ordered IV pain and nausea medication. Patient is a normal white count H&H and platelet count. The patient's kidney function is unremarkable. Mild hyponatremia noted. Magnesium slightly low 1.6. Troponin is not elevated. Urinalysis no evidence of obvious blood or infection. CT head is negative. CT abdomen pelvis does show pelvic fractures. This is not consistent with the patient's current exam and the patient states that she did have a fall a while back and does have a prior hip replacement. Do not believe that these are acute. I did speak with the patient as patient was concerned about going home. Given patient's epigastric discomfort nothing and reasonable for observation. Continue to trend cardiac enzymes as well. Did speak the on-call hospitalist Dr. Ruiz and the patient was admitted to the medicine service. Past Med/Surg History Medical History Diabetes mellitus Dyslipidemia HTN (hypertension) Hypothyroidism Major depressive disorder, recurrent severe without psychotic features Tobacco use disorder Surgical History History of Hx of tonsillectomy Family History Brother Hypertension Social History (Updated 12/24/21 @ 23:33 by Carl Hill MD) Smoking Status: Current some day smoker Tobacco Type: Cigarettes Cigarettes Per Day: 0.5; Hx Alcohol Use: Yes Alcohol type: beer and wine Alcohol Intake Frequency: 4 or More x per/Week Hx Substance Use: No Preferred Language: Pashto Communication Ability: Effective Smart [employer] Specialist Required: No Beliefs That Will Affect Care: None marital status: / Current Living Situation: Alone current occupational status: retired Feels Safe at Home: Yes Assistive Devices: Walker Allergies Allergies Allergy/AdvReac Type Severity Reaction Status Date / Time No Known Allergies Allergy Verified 12/24/21 20:47 Home Meds Home Medications Medication Instructions Recorded Confirmed amlodipine 2.5 mg tablet 2.5 mg PO HS 11/22/21 12/24/21 bupropion HCl 300 mg 24 hr tablet, 300 mg PO QAM 11/22/21 12/24/21 extended release calcium carbonate 600 mg-vitamin 1 cap PO DAILY 11/22/21 12/24/21 D3 5 mcg (200 unit) capsule (Calcium 600 + D(3)) clonazepam 0.5 mg tablet 0.5 mg PO DAILY PRN 11/22/21 12/24/21 insulin aspart U-100 100 unit/mL 0 sliding scale dose SUBCUT TIDM 11/22/21 0 12/24/21 (3 mL) subcutaneous pen (Novolog Flexpen U-100 Insulin aspart) insulin glargine 100 unit/mL (3 0 unit SUBCUT HS 11/22/21 12/24/21 mL) subcutaneous pen (Basaglar KwikPen U-100 Insulin) levothyroxine 112 mcg tablet 112 mcg PO DAILYBB 11/22/21 12/24/21 (Euthyrox) lisinopril 40 mg tablet 40 mg PO BID 11/22/21 12/24/21 multivitamin 1 tab PO DAILY 11/22/21 12/24/21 venlafaxine 37.5 mg 37.5 mg PO QAM 11/22/21 12/24/21 capsule,extended release 24 hr acetaminophen 500 mg tablet 1,000 mg PO DIRECTED PRN 12/24/21 12/24/21 (Tylenol Extra Strength) docusate sodium 100 mg capsule 100 mg PO DAILY PRN 12/24/21 12/24/21 (Stool Softener) Previous Rx's Medication Instructions Recorded atorvastatin 40 mg tablet 40 mg PO HS #30 tab 11/25/21 clopidogrel 75 mg tablet 75 mg PO QAM #30 tab 11/25/21 Results & Data (ED) Vital Signs Vital Signs - 24 hr 12/24/21 19:56 12/24/21 20:50 12/24/21 22:11 Temperature 36.1 C L Temperature Source Temporal Artery Scan Oral Pulse Rate 83 75 Pulse Rate [Right Finger] 69 75 Pulse Rhythm Regular Pulse Rhythm [Right Finger] Regular Pulse Strength [Right Finger] Normal Respiratory Rate 18 22 18 Respiratory Effort / Characteristics Non-Labored Respiratory Depth Normal Blood Pressure 151/79 H Blood Pressure [Right Arm] 159/82 H 161/81 H Blood Pressure Mean 103 Blood Pressure Mean [Right Arm] 107 107 Blood Pressure Position [Right Arm] Sitting Pulse Oximetry 97 96 95 Oxygen Delivery Method Room Air Room Air Sepsis Recent Fever Within 48 Hours No Sepsis New/Unexplained Change in Mental Status No Sepsis Action Taken by Nursing No Action Required Pulse Oximetry Post Tiitration 95 Home Medications Current Medication List: was personally reviewed by me Laboratory Data Attestation: I reviewed the patient's lab results. Result diagrams: 12/24/21 20:23 12/24/21 20:23 Lab Results 12/24/21 12/24/21 12/24/21 Range/Units 20:23 20:23 20:23 WBC 7.06 (4.8-10.8) K/uL RBC 4.02 L (4.2-5.4) M/uL Hgb 12.8 (12.0-16.0) g/dL Hct 37.9 (37-47) % MCV 94.3 (80-100) fL MCH 31.8 (25-34) pg MCHC 33.8 (32-36) g/dL RDW Std Deviation 46.1 (36.4-46.3) fL RDW Coeff of Cindy 13.3 (11.5-14.5) % Plt Count 303 (130-400) K/uL MPV 11.0 H (7.4-10.4) fL Immature Gran % (Auto) 0.1 % Neut % (Auto) 56.3 % Lymph % (Auto) 35.6 % Stevens % (Auto) 6.2 % Eos % (Auto) 1.7 % Baso % (Auto) 0.1 % Neut # (Auto) 3.97 (1.4-6.5) K/uL Lymph # (Auto) 2.51 (1.2-3.4) K/uL Stevens # (Auto) 0.44 (0.11-0.59) K/uL Eos # (Auto) 0.12 (0-0.5) K/uL Baso # (Auto) 0.01 (0-0.2) K/uL Immature Gran # (Auto) 0.01 (0.00-0.02) K/uL Sodium 132 L (136-145) mmol/L Potassium 4.0 (3.5-5.1) mmol/L Chloride 100 (98-107) mmol/L Carbon Dioxide 24 (21-32) mmol/L Anion Gap 8 (3-11) BUN 11 (6-23) mg/dl Creatinine 0.83 (0.6-1.2) mg/dl Est Cr Clr Drug Dosing 60.0 ml/min Est GFR ( Amer) 85.2 ml/min Est GFR (Non-Af Amer) 73.5 ml/min BUN/Creatinine Ratio 13.3 (10-20) Glucose 181 H (70-99(Fasting)) mg/dl POC Glucose (70-99) mg/dl Calcium 9.4 (8.5-10.1) mg/dl Magnesium 1.6 L (1.7-2.4) mg/dl Total Bilirubin 0.5 (0.2-1.0) mg/dl AST 17 (13-39) U/L ALT 20 (7-52) U/L Alkaline Phosphatase 68 (34-104) U/L Troponin I High Sens 7.3 (0-14) pg/ml Total Protein 6.6 (6.0-8.3) gm/dl Albumin 4.2 (3.4-5.0) gm/dl Globulin 2.4 L (2.5-4.0) gm/dl Albumin/Globulin Ratio 1.8 (0.9-2) Lipase (11-82) U/L TSH 3.130 (0.300-4.500) uIu/ml Urine Color Urine Appearance (Clear) Urine pH (4.5-7.5) Ur Specific Perry (1.000-1.030) Urine Protein (Negative) Urine Glucose (UA) (Negative) Urine Ketones (Negative) Urine Blood (Negative) Urine Nitrite (Negative) Urine Bilirubin (Negative) Urine Urobilinogen (Negative) Ur Leukocyte Esterase (Negative) 12/24/21 12/24/21 12/24/21 Range/Units 20:31 20:52 Unknown WBC (4.8-10.8) K/uL RBC (4.2-5.4) M/uL Hgb (12.0-16.0) g/dL Hct (37-47) % MCV (80-100) fL MCH (25-34) pg MCHC (32-36) g/dL RDW Std Deviation (36.4-46.3) fL RDW Coeff of Cindy (11.5-14.5) % Plt Count (130-400) K/uL MPV (7.4-10.4) fL Immature Gran % (Auto) % Neut % (Auto) % Lymph % (Auto) % Stevens % (Auto) % Eos % (Auto) % Baso % (Auto) % Neut # (Auto) (1.4-6.5) K/uL Lymph # (Auto) (1.2-3.4) K/uL Stevens # (Auto) (0.11-0.59) K/uL Eos # (Auto) (0-0.5) K/uL Baso # (Auto) (0-0.2) K/uL Immature Gran # (Auto) (0.00-0.02) K/uL Sodium (136-145) mmol/L Potassium (3.5-5.1) mmol/L Chloride (98-107) mmol/L Carbon Dioxide (21-32) mmol/L Anion Gap (3-11) BUN (6-23) mg/dl Creatinine (0.6-1.2) mg/dl Est Cr Clr Drug Dosing ml/min Est GFR ( Amer) ml/min Est GFR (Non-Af Amer) ml/min BUN/Creatinine Ratio (10-20) Glucose (70-99(Fasting)) mg/dl POC Glucose 188 H (70-99) mg/dl Calcium (8.5-10.1) mg/dl Magnesium (1.7-2.4) mg/dl Total Bilirubin (0.2-1.0) mg/dl AST (13-39) U/L ALT (7-52) U/L Alkaline Phosphatase (34-104) U/L Troponin I High Sens (0-14) pg/ml Total Protein (6.0-8.3) gm/dl Albumin (3.4-5.0) gm/dl Globulin (2.5-4.0) gm/dl Albumin/Globulin Ratio (0.9-2) Lipase 7 L (11-82) U/L TSH (0.300-4.500) uIu/ml Urine Color Yellow Urine Appearance Clear (Clear) Urine pH 5.0 (4.5-7.5) Ur Specific Perry 1.016 (1.000-1.030) Urine Protein Negative (Negative) Urine Glucose (UA) Negative (Negative) Urine Ketones 1+ H (Negative) Urine Blood Negative (Negative) Urine Nitrite Negative (Negative) Urine Bilirubin Negative (Negative) Urine Urobilinogen Negative (Negative) Ur Leukocyte Esterase Negative (Negative) Administered Medications Discontinued Medications Sodium Chloride (Nss) 500 mls @ 999 mls/hr IV .Q31M SACHI Stop: 12/24/21 21:15 Last Infusion: 12/24/21 21:23 Dose: 0 mls/hr Documented by: [id number] Admin: 12/24/21 20:49 Dose: 999 mls/hr Documented by: [id number] Ioversol (Optiray 320 100ml) 94 ml IV ONCE ONE Stop: 12/24/21 21:53 Last Admin: 12/24/21 21:52 Dose: 94 ml Documented by: [id number] Morphine Sulfate (Morphine Sulfate 4 Mg/Ml 1 Ml Carp\\Vial) 4 mg IV NOW STA Stop: 12/24/21 20:43 Last Admin: 12/24/21 20:49 Dose: 4 mg Documented by: [id number] Ondansetron HCl (Ondansetron Inj 2 Mg/Ml 2 Ml Vial) 4 mg IV NOW STA Stop: 12/24/21 20:43 Last Admin: 12/24/21 20:49 Dose: 4 mg Documented by: [id number] Discharge Plan Visit Data Chief Complaint: Stroke/CVA Symptoms Stated Complaint: WEAKNESS, DIZZINESS, BALANCE OFF ED Provider: Carl Hill Discharge Problem: Abdominal pain, Acute hyponatremia, Tobacco use Patient Disposition: Admitted As Inpatient Forms Stand Alone Forms: [facility] Prescriptions Prescriptions: No Action multivitamin Tablet 1 tab PO DAILY RF: 0 venlafaxine 37.5 mg capsule,extended release 24hr 37.5 mg PO QAM RF: 0 clonazepam 0.5 mg tablet 0.5 mg PO DAILY PRN (Reason: Anxiety) RF: 0 amlodipine 2.5 mg tablet 2.5 mg PO HS RF: 0 lisinopril 40 mg tablet 40 mg PO BID RF: 0 levothyroxine [Euthyrox] 112 mcg tablet 112 mcg PO DAILYBB RF: 0 insulin aspart U-100 [Novolog Flexpen U-100 Insulin] 100 unit/mL (3 mL) Insulin Pen 0 sliding scale dose subcut TIDM RF: 0 bupropion HCl 300 mg tablet extended release 24 hr 300 mg PO QAM RF: 0 Calcium 600 + D(3) 600 mg-5 mcg (200 unit) Capsule 1 cap PO DAILY RF: 0 Basaglar KwikPen U-100 Insulin 100 unit/mL (3 mL) insulin pen 0 unit SUBCUT HS RF: 0 atorvastatin 40 mg Tablet 40 mg PO HS Qty: 30 RF: 1 clopidogrel 75 mg Tablet 75 mg PO QAM Qty: 30 RF: 1 acetaminophen [Tylenol Extra Strength] 500 mg Tablet 1,000 mg PO DIRECTED PRN (Reason: Pain) RF: 0 docusate sodium [Stool Softener] 100 mg Capsule 100 mg PO DAILY PRN (Reason: Constipation) RF: 0 Referrals Referrals: Deepak Arriaga DO [Primary Care Provider] -
[2021-12-24] MEDS ORDERED: MoRPHine SULFATE 4 MG/ML 1 ML CARP\\VIAL IV STA (20:42)
[2021-12-24] MEDS ORDERED: ONDANSETRON INJ 2 MG/ML 2 ML VIAL IV STA (20:42)
[2021-12-24] MEDS ORDERED: SODIUM CHLORIDE 0.9% 500 ML IV SCH (20:45)
[2021-12-24 21:23] LABS: Albumin Globulin Ratio 1.8 (0.9-2); Albumin Level 4.2 gm/dl (3.4-5.0); BUN Creatinine Ratio 13.3 (10-20); Bilirubin,Total 0.5 mg/dl (0.2-1.0); Calcium 9.4 mg/dl (8.5-10.1); Est GFR (African American) 85.2 ml/min; Est GFR (Non-African American) 73.5 ml/min; Globulin 2.4 gm/dl (2.5-4.0); Magnesium 1.6 mg/dl (1.7-2.4); Total Protein 6.6 gm/dl (6.0-8.3)
[2021-12-24 21:25] LABS: Troponin I High Sensitivity 7.3 pg/ml (0-14)
[2021-12-24 21:50] LABS: Basophils # (auto) 0.01 K/uL (0-0.2); Basophils % (auto) 0.1 %; Eosinophils # (auto) 0.12 K/uL (0-0.5); Eosinophils % (auto) 1.7 %; Hematocrit (blood only) 37.9 % (37-47); Hemoglobin 12.8 g/dL (12.0-16.0); Immature Granulocytes # (auto) 0.01 K/uL (0.00-0.02); Immature Granulocytes % (auto) 0.1 %; Lymphocytes # (auto) 2.51 K/uL (1.2-3.4); Lymphocytes % (auto) 35.6 %; Mean Corpuscular Hemoglobin 31.8 pg (25-34); Mean Corpuscular Hgb Conc 33.8 g/dL (32-36); Mean Corpuscular Volume 94.3 fL (80-100); Monocytes # (auto) 0.44 K/uL (0.11-0.59); Monocytes % (auto) 6.2 %; Neutrophils # (auto) 3.97 K/uL (1.4-6.5); Neutrophils % (auto) 56.3 %; Platelet Count 303 K/uL (130-400); RDW Coefficient of Variation 13.3 % (11.5-14.5); RDW Standard Deviation 46.1 fL (36.4-46.3); Red Blood Count 4.02 M/uL (4.2-5.4); White Blood Count 7.06 K/uL (4.8-10.8)
[2021-12-24] MEDS ORDERED: OPTIRAY 320 100ml IV ONE (21:52)
[2021-12-24 22:25] LABS: Appearance Urine Clear (Clear); Bilirubin Urine Negative (Negative); Blood Urine Negative (Negative); Color Urine Yellow; Glucose Urine UA Negative (Negative); Ketones Urine 1+ (Negative); Leukocyte Esterase Urine Negative (Negative); Nitrite Urine Negative (Negative); Protein Urine Negative (Negative); Specific Gravity Urine 1.016 (1.000-1.030); Urobilinogen Urine Negative (Negative)
[2021-12-25] MEDS ORDERED: HYDROmorphone INJ 0.5 MG/0.5 ML SYR IV PRN (00:27)
[2021-12-25] MEDS ORDERED: ALUMINUM/MAGNESIUM/SIMETH (MAALOX MAX) 30 ML UDC PO STA (00:27)
[2021-12-25] MEDS ORDERED: ONDANSETRON INJ 2 MG/ML 2 ML VIAL IV PRN (01:33)
[2021-12-25] MEDS ORDERED: SODIUM CHLORIDE 0.45 % 1,000 ML IV SCH (01:33)
[2021-12-25] MEDS ORDERED: GLUCAGON FOR INJ 1 MG VIAL IM PRN (01:45)
[2021-12-25] MEDS ORDERED: GLUCOSE 40% GEL 15 GM TUBE PO PRN (01:45)
[2021-12-25] MEDS ORDERED: GLUCOSE 10 TABS/TUBE PO PRN (01:45)
[2021-12-25] MEDS ORDERED: CARBOHYDRATES FOR HYPOGLYCEMIA PO PRN (01:45)
[2021-12-25] MEDS ORDERED: DEXTROSE 50% 50 ML SYRINGE IV PRN (01:45)
--- NOTE | 2021-12-25 04:04 | History and Physical Report ---
DATE OF ADMISSION: 12/25/2021 CHIEF COMPLAINT: Abdominal pain. HISTORY OF PRESENT ILLNESS: This is a 66-year-old female with past medical history significant for diabetes, hypothyroidism, tobacco use disorder, hypertension, depression, recent stroke in October ( presented with vertigo and MRI scan showed right posterior pontomedullary junction acute infarct) Plan was to continue aspirin, Plavix for 21 days and then Plavix alone. Currently, she is only on Plavix, she was in rehab. Currently, comes because of severe abdominal pain. Pain is located in the epigastric region, but is severe in nature, 10/10. Also has nausea, no vomiting. When the pain was severe, she felt like legs were weak, the weakness was same as like when she had a stroke. The weakness was improved in the rehab, but today again she felt leg weakness while climbing down steps, but currently lying in the bed, there is no weakness. With pain medication the pain is improved in the abdomen, but seems coming back. Denies any chest pain, no shortness of breath, no cough. No fever, no headache. Today when she was having severe pain, she was clenching her teeth and shaking. Denies any headache, no dizziness, no blurred vision, no earache, no runny nose, no sore throat, no cough, no difficulty swallowing. Normal bowel and bladder movements. Currently, resting comfortably and hemodynamically stable. ALLERGIES: No known drug allergies. PAST MEDICAL HISTORY: As mentioned above. PAST SURGICAL HISTORY: History of , history of tonsillectomy. FAMILY HISTORY: Significant for brother has hypertension. SOCIAL HISTORY: Currently smoking 60 cigarettes per day as per the recent H and P. Alcohol 4 or more times per week of beer or wine. No drug use. REVIEW OF SYSTEMS: As per HPI. Rest of review of systems is negative. MEDICATIONS: The patient on Tylenol Extra Strength p.r.n., amlodipine 2.5 mg p.o. at bedtime, atorvastatin 40 mg p.o. at bedtime, Basaglar insulin total 15- 20 units in divided dose of 2 times a day, bupropion 300 mg q. a.m., calcium plus D one capsule p.o. daily, Klonopin 0.5 mg p.o. daily p.r.n., Plavix 75 mg p.o. daily a.m., Colace 100 mg p.o. daily p.r.n., NovoLog sliding scale, levothyroxine 112 mcg p.o. daily, lisinopril 40 mg p.o. b.i.d., multivitamin 1 tablet p.o. daily, venlafaxine 37.5 mg p.o. daily. PHYSICAL EXAMINATION: GENERAL: Patient is alert and oriented, not in acute distress. VITAL SIGNS: Temperature 36.1, pulse 75, respiratory rate 18, blood pressure 161/81, oxygen 95% on room air. HEENT: Pupils equal, round and reactive to light. Oral mucosa moist. LUNGS: No JVD, no neck masses. CARDIOVASCULAR: S1 and S2 heard. Regular rate and rhythm. No murmur, no gallop. RESPIRATORY: Normal AP diameter. No accessory muscle use. No wheezing, no crackles. ABDOMEN: Soft. Bowel sounds are present. Epigastric tenderness present. No guarding, no rigidity, no distention. CENTRAL NERVOUS SYSTEM: Cranial nerves II-XII grossly intact, nonfocal. EXTREMITIES: No edema, no erythema. LABORATORY DATA: WBC 7, hemoglobin 12.8, hematocrit 36.9, platelets 303. Sodium 132, potassium 4, chloride 100, bicarb 24, BUN 11, creatinine 0.8, serum glucose 181, calcium 9.4, magnesium 1.6, total bilirubin 0.5, AST 17, ALT 20, alkaline phosphatase 66. Troponin I high sensitivity is 1.3, lipase 7. TSH is 3.3. Urinalysis negative. SARS-CoV-2 rapid test negative. IMAGING: CT of the head, preliminary report, no acute findings. CT of abdomen and pelvis with contrast shows no acute abnormality along the GI tract, colonic diverticulosis without diverticulitis, fracture of the bilateral superior and inferior pubic rami. ASSESSMENT AND PLAN: 1. This is a 66-year-old female who presents with severe epigastric abdominal pain, recently had aspirin and Plavix for 3 weeksl post-stroke from October. Currently only on Plavix. She has epigastric tenderness. We will give her Maalox, we will place on IV Protonix 40 b.i.d., keep her on full liquid diet and consult gastrointestinal in the a.m. for further recommendation. 2. History of recent stroke, Plavix and statin be continued.PT/OT 3. History of hypertension: Continue her amlodipine, lisinopril. Monitor the blood pressure. 4. History of diabetes mellitus, we will place on Lantus 5 units b.i.d. and insulin sliding scale. We will monitor the blood sugars. 5. History of hypothyroidism: Continue Synthroid. 6. History of depression. The patient is on venlafaxine, bupropion. Patient wants to speak to a counselor, we will consult psychiatry while patient is in the hospital. 7. Deep venous thrombosis prophylaxis with Lovenox. DISPOSITION: Observe in the medical floor. PT/OT prior to discharge. Social Service to help with discharge planning. Job ID: [id number] [facility]OSPITALMaryann
[2021-12-25] MEDS: ACETAMINOPHEN 325 MG TAB PO PRN ×2 (05:09→11:47)
[2021-12-25 06:11] LABS: Basophils # (auto) 0.01 K/uL (0-0.2); Basophils % (auto) 0.2 %; Hematocrit (blood only) 34.6 % (37-47); Hemoglobin 11.6 g/dL (12.0-16.0); Lymphocytes # (auto) 1.94 K/uL (1.2-3.4); Lymphocytes % (auto) 38.5 %; Mean Corpuscular Hgb Conc 33.5 g/dL (32-36); Mean Corpuscular Volume 95.6 fL (80-100); Mean Platelet Volume 10.1 fL (7.4-10.4); Monocytes # (auto) 0.34 K/uL (0.11-0.59); Monocytes % (auto) 6.7 %; Neutrophils # (auto) 2.65 K/uL (1.4-6.5); Neutrophils % (auto) 52.6 %; Platelet Count 249 K/uL (130-400); RDW Coefficient of Variation 13.1 % (11.5-14.5); RDW Standard Deviation 46.3 fL (36.4-46.3); Red Blood Count 3.62 M/uL (4.2-5.4); White Blood Count 5.04 K/uL (4.8-10.8)
[2021-12-25] MEDS: LEVOTHYROXINE SODIUM 112 MCG TABLET PO SCH (06:16)
[2021-12-25 06:26] LABS: BUN Creatinine Ratio 11.8 (10-20); Calcium 8.7 mg/dl (8.5-10.1); Creatinine Clr Calc Pharmacy 73.2 ml/min; Est GFR (African American) 105.6 ml/min; Est GFR (Non-African American) 91.2 ml/min; Magnesium 1.7 mg/dl (1.7-2.4)
--- NOTE | 2021-12-25 07:02 | CT Scan Report ---
CT head/brain wo con CLINICAL HISTORY: gait imbalance COMPARISON STUDY: 11/22/2021 CT DOSE: 537.48 mGy.cm TECHNIQUE: Standard CT of the Brain was performed without IV contrast. A dose lowering technique was utilized adhering to the principles of ALARA. FINDINGS: Extraaxial space: There is no evidence for subdural hematoma. There are no extra-axial fluid collecti ons. Ventricles and cisterns: The ventricles are mildly dilated bilaterally. There is no evidence for midl ine shift or mass effect. Parenchyma: There is no subarachnoid or intraparenchymal hemorrhage. There is no evidence for an acut e infarct or cerebral edema. There is homogeneous attenuation of the brain parenchyma. There are no g ross mass lesions. Osseous structures: There is no evidence for an acute fracture. The visualized paranasal sinuses are clear. The mastoid air cells are clear bilaterally. Soft tissues: There is no evidence for focal soft tissue swelling. IMPRESSION: 1. No acute intracerebral pathology. ACT 112: Negative or not required by law. Electronically signed by: Donnie Vyas M.D. 12/25/2021 7:00 AM
[2021-12-25 07:04] LABS: Estimated Average Glucose 197 mg/dl; Hemoglobin A1C 8.5 % (4.5-5.6)
--- NOTE | 2021-12-25 07:15 | CT Scan Report ---
CT abd pelvis IV con only CLINICAL HISTORY: upper ab pain COMPARISON STUDY: 03/11/2017 CT DOSE: 273.53 mGy.cm TECHNIQUE: Standard CT of the Abdomen and Pelvis was performed with IV contrast. A dose lowering kerri hnique was utilized adhering to the principles of ALARA. Contrast Volume: Optiray 320, 95 ml. The patient did not receive oral contrast. FINDINGS: Lung base: There is right basilar atelectasis. Abdominal cavity: There is no evidence for abdominal mass, adenopathy or ascites. Liver: There is homogeneous attenuation of the liver parenchyma. There is no evidence for enhancing m ass lesion. Spleen: There is homogeneous attenuation of the splenic parenchyma. There is no enhancing mass lesion . Pancreas: There is homogeneous attenuation of the pancreatic parenchyma. There is no evidence for mas s lesion or peripancreatic fluid collection. Gall Bladder: The gallbladder is well distended with no evidence for intraluminal calculi, wall thick ening or pericholecystic edema. Adrenal glands: The adrenal glands are normal in size and attenuation. There is no evidence for enhan cing mass lesion. Kidneys: There is homogeneous attenuation of the renal parenchyma bilaterally. There is no evidence f or renal calculus or hydronephrosis. There is no evidence for enhancing mass. Bowel: There is a small hiatal hernia. There are fluid-filled loops of small bowel seen throughout th e abdomen and pelvis without evidence for disproportionate dilatation or obstruction. The findings ar e most characteristic of an ileus versus gastroenteritis. There is no evidence for mass lesion. There is mild sigmoid diverticulosis without evidence for diverticulitis. There are no inflammatory change s present. There is no evidence for free air. There is a normal appendix in the right lower quadrant. Bladder: The bladder is within normal limits with no evidence for focal mass, calculus or diverticulu m. : There is no evidence for pelvic mass or adenopathy. There is no evidence for pelvic ascites. Vasculature: There is no evidence for aneurysmal dilatation of the abdominal aorta. There is mild hyp ertrophic calcification present. Osseous structures: There is evidence of bilateral sacral and sufficiency fractures. There are also h ealing bilateral insufficiency fractures of the ischiopubic rami bilaterally. Patient is status post right hip replacement. IMPRESSION: 1. CT findings characteristic of an ileus versus gastroenteritis. No bowel obstruction. 2. Small hiatal hernia. 3. Diverticulosis without evidence for diverticulitis. 4. Right basilar atelectasis. 5. Bilateral sacral insufficiency fractures. 6. Subacute, healing bilateral insufficiency fractures of the ischial pubic rami. ACT 112: Negative or not required by law. Electronically signed by: Donnie Vyas M.D. 12/25/2021 7:13 AM
--- NOTE | 2021-12-25 07:17 | XRay Report ---
XR chest 1V portable CLINICAL HISTORY: weakness COMPARISON STUDY: Chest radiograph November 22, 2021. FINDINGS: Lung volumes are normal. Lungs are clear. There is no pneumothorax or pleural effusion. Car diac size is normal. Mediastinal contours are normal. There is no evidence for pulmonary edema. Sever al old right rib fractures are incidentally noted. IMPRESSION: No acute cardiopulmonary findings. ACT 112: Negative or not required by law. Electronically signed by: Sixto Hernandez M.D. 12/25/2021 7:15 AM
[2021-12-25] MEDS: ENOXAPARIN INJ 40 MG/0.4 ML SYR SQ SCH (09:42)
[2021-12-25] MEDS: PANTOprazole 40 MG in SYRINGE 0 ML IV SCH ×2 (09:42→20:49)
[2021-12-25] MEDS: INSULIN GLARGINE SOLOSTAR 100 UNITS/ML 3 ML PEN SC SCH ×2 (09:43→20:54)
[2021-12-25] MEDS: lisinopril 40 MG TAB PO SCH ×2 (09:44→20:47)
[2021-12-25] MEDS: VENLAFAXINE HCL XR 37.5 MG CAPXR PO SCH (09:45)
[2021-12-25] MEDS: CLOPIDOGREL BISULFATE 75 MG TAB PO SCH (09:45)
[2021-12-25] MEDS: MULTIVITAMIN TAB PO SCH (09:45)
[2021-12-25] MEDS: buPROPion XL 300 MG TABCR PO SCH (09:45)
[2021-12-25] MEDS: INSULIN ASPART PER UNIT SC SCH ×4 (09:52→20:51)
--- NOTE | 2021-12-25 11:02 | Gastrointestinal Consultation ---
Date of Consultation December 25, 2021 Assessment & Plan (1) Abdominal pain: Gastroenteritis noted on CT scan with less likely ileus -Add Protonix 40 mg BID -Add Famotidine 20 mg BID -Add Carafate 1 gm four times daily prior to meals -Liquid diet as tolerated -If pain worsens, repeat Lipase and consider gallbladder work-up however there is low suspicion of these at this time. Patient has been on Plavix/Aspirin lately. She could potentially have a peptic ulcer, however her H/H is stable and she has no GI bleeding so would proceed with conservative medical management with the aforementioned medications. Supervising Physician Co-Signing Physician Notes I personally evaluated the patient and agree with the findings as documented by JAHAIRA Singer Exam: Constitutional: WD/WN, vitals as above General: EOM intact bilaterally Neck: normal visual inspection Respiratory: normal respiratory effort, lungs clear to auscultation Cardiovascular: RRR, no murmur, no edema Gastrointestinal: abdomennormal to inspection, nondistended, soft, mild diffuse upper abdominal tenderness, no hepatosplenomegaly Musculoskeletal: no cyanosis, head normal to inspection Skin: no rashes, warm and dry Neurologic: moves all extremities Psychiatric: alert and cooperative, euthymic affect History of Present Illness Reason for Consultation: Epigastric pain Attending Physician: German Galvin MD History of Present Illness Patient is a 66 yo female with PMH of DM2, hypothyroidism, tobacco abuse, HTN, depression, and CVA in October 2021. She was on Aspirin & Plavix together, then transitioned to Plavix alone. She developed a sudden onset of severe abdominal pain in the epigastric region. She describes it as severe 10/10 pain. She denies nausea, vomiting, heartburn, reflux, diarrhea, or constipation. Since admission, she was noted to have a CT scan with gastroenteritis vs ileus. She had an unremarkable lipase. No CT findings of biliary/gallbladder concerns, diverticulitis, or pancreatitis. She denies a significant history of GI issues personally. No pertinent family history. She deneis NSAID use. H/H 11.6/34.6. LFTs unremarkable. Allergies Allergy/AdvReac Type Severity Reaction Status Date / Time No Known Allergies Allergy Verified 12/24/21 20:47 Home Medications Medication Instructions Recorded Confirmed Type amlodipine 2.5 mg tablet 2.5 mg PO HS 11/22/21 12/24/21 History bupropion HCl 300 mg 24 hr tablet, 300 mg PO QAM 11/22/21 12/24/21 History extended release calcium carbonate 600 mg-vitamin 1 cap PO DAILY 11/22/21 12/24/21 History D3 5 mcg (200 unit) capsule (Calcium 600 + D(3)) clonazepam 0.5 mg tablet 0.5 mg PO DAILY PRN 11/22/21 12/24/21 History insulin aspart U-100 100 unit/mL 0 sliding scale dose SUBCUT TIDM 11/22/21 12/24/21 History (3 mL) subcutaneous pen (Novolog Flexpen U-100 Insulin aspart) insulin glargine 100 unit/mL (3 0 unit SUBCUT HS 11/22/21 12/24/21 History mL) subcutaneous pen (Basaglar KwikPen U-100 Insulin) levothyroxine 112 mcg tablet 112 mcg PO DAILYBB 11/22/21 12/24/21 History (Euthyrox) lisinopril 40 mg tablet 40 mg PO BID 11/22/21 12/24/21 History multivitamin 1 tab PO DAILY 11/22/21 12/24/21 History venlafaxine 37.5 mg 37.5 mg PO QAM 11/22/21 12/24/21 History capsule,extended release 24 hr atorvastatin 40 mg tablet 40 mg PO HS #30 tab 11/25/21 12/24/21 Rx clopidogrel 75 mg tablet 75 mg PO QAM #30 tab 11/25/21 12/24/21 Rx acetaminophen 500 mg tablet 1,000 mg PO DIRECTED PRN 12/24/21 12/24/21 History (Tylenol Extra Strength) docusate sodium 100 mg capsule 100 mg PO DAILY PRN 12/24/21 12/24/21 History (Stool Softener) Patient History Medical History Diabetes mellitus Dyslipidemia HTN (hypertension) Hypothyroidism Major depressive disorder, recurrent severe without psychotic features Tobacco use disorder Surgical History History of Hx of tonsillectomy Family History Brother Hypertension Social History Smoking Status: Current some day smoker Tobacco Type: Cigarettes Cigarettes Per Day: 0.5; Hx Alcohol Use: Yes Alcohol type: beer and wine Alcohol Intake Frequency: 4 or More x per/Week Hx Substance Use: No Preferred Language: Malaysian Communication Ability: Effective Credit Counselor Required: No Beliefs That Will Affect Care: None marital status: / Current Living Situation: Alone current occupational status: retired Feels Safe at Home: Yes Assistive Devices: Walker Review of Systems Constitutional: no fever and no chills Respiratory: no cough and no dyspnea Gastrointestinal: + abdominal pain Integumentary: no problem reported Psychiatric: no problem reported Hematologic / Lymphatic: no problem reported Physical Exam Constitutional: well developed Respiratory: normal respiratory effort Cardiovascular: Rate/Rhythm: regular rate Gastrointestinal (Abdomen): normal bowel sounds, soft, nontender, no hepatosplenomegaly Musculoskeletal: Head/Neck/Chest: normocephalic Psychiatric: Orientation: alert and oriented x 3 Results & Data ([facility]) Vital Signs (Past 12 Hours) Vital Signs Temp Pulse Resp BP Pulse Ox 12/25/21 07:25 36.6 C 64 17 144/79 H 92 12/25/21 04:42 36.4 C L 72 18 144/83 H 91 12/25/21 02:46 61 17 147/72 H 94 12/25/21 01:54 66 18 121/61 98 12/25/21 01:47 70 17 126/61 95 PG Care Time/CCT Total # of Minutes Spent Total Time Spent with Patient: Total time spent is greater than 50% in coordination of care (as documented) at patient's floor/unit and/or counseling patient: Coding Level of Care Code 01104 Initial Inpt Care Lvl 3 Diagnoses Abdominal pain R10.9
[2021-12-25] MEDS: clonazePAM 0.5 MG TAB PO PRN (11:47)
--- NOTE | 2021-12-25 14:00 | Psychiatric Consultation ---
Date of Consultation December 25, 2021 Impression / Recommendations Impression 66 yo female with a history of 2 prior inpatient admits for depression presents with worsening depression in the context of recurrent abdominal pain. (1) Major depression: (2) Acute hyponatremia: (3) Abdominal pain: Abdominal location: epigastric Qualified Code(s): R10.13 - Epigastric pain reviewed that just as last time I would not make major changes to her current meds until her diet is advanced, then effexor should be titrated or discontinued. She initially requested decrease in Wellbutrin but again reviewed timing/ambivalence. will follow her level of functioning and ability to safety plan as closer to medical clearance to determine if meets inpatient criteria based on functioning. Psych History Identifying Data 66 yo female admit for abdominal pain, initially on obs status now being adm itted. Consult is for depression. Last seen by me on consult service 10/2021. Chief Complaint "I just don't think I can go on like this". History of Present Illness as per initial consult: Patient reported loneliness as lives alone since in 2007. She gets frustrated with ongoing medical issues, had diverticulitis week prior to admission. States she is taking meds consistently but recent change from Lexapro to Effexor about 4 weeks ago. PHQ-9 13, 0 on question 9. Scores for anhedonia, feeling down every day, poor appetite and energy, poor concentration. Since last contact patient has been seen for 1 therapy session at [facility]. Her psych appt is still pending. States that she was "totally fine" for 10 years on Wellbutrin and Lexapro until her diverticulous. Cross taper to Effexor has been halted due to her medical issues and now she is rather ambivalent about all of her meds. At this point her PHQ-9 has worsened to a 21 with 2 on Question 9. She is not actively suicidal in the hospital and thoughts are passive as "I just don't do anything but lie on the couch." She is wondering if an inpatient hospitalization would be helpful for medication adjustment. Reviewed that she is currently on liquid diet and must be medically cleared and the changes she is requesting could be done on an outpatient basis if she is able to contract for safety at that time. note on past psych hx admission here at [facility] in 2017, previous to that the [facility], "I won't go back there." Allergies Allergy/AdvReac Type Severity Reaction Status Date / Time No Known Allergies Allergy Verified 12/24/21 20:47 Home Medications Medication Instructions Recorded Confirmed Type amlodipine 2.5 mg tablet 2.5 mg PO HS 11/22/21 12/24/21 History bupropion HCl 300 mg 24 hr tablet, 300 mg PO QAM 11/22/21 12/24/21 History extended release calcium carbonate 600 mg-vitamin 1 cap PO DAILY 11/22/21 12/24/21 History D3 5 mcg (200 unit) capsule (Calcium 600 + D(3)) clonazepam 0.5 mg tablet 0.5 mg PO DAILY PRN 11/22/21 12/24/21 History insulin aspart U-100 100 unit/mL 0 sliding scale dose SUBCUT TIDM 11/22/21 12/24/21 History (3 mL) subcutaneous pen (Novolog Flexpen U-100 Insulin aspart) insulin glargine 100 unit/mL (3 0 unit SUBCUT HS 11/22/21 12/24/21 History mL) subcutaneous pen (Basaglar KwikPen U-100 Insulin) levothyroxine 112 mcg tablet 112 mcg PO DAILYBB 11/22/21 12/24/21 History (Euthyrox) lisinopril 40 mg tablet 40 mg PO BID 11/22/21 12/24/21 History multivitamin 1 tab PO DAILY 11/22/21 12/24/21 History venlafaxine 37.5 mg 37.5 mg PO QAM 11/22/21 12/24/21 History capsule,extended release 24 hr atorvastatin 40 mg tablet 40 mg PO HS #30 tab 11/25/21 12/24/21 Rx clopidogrel 75 mg tablet 75 mg PO QAM #30 tab 11/25/21 12/24/21 Rx acetaminophen 500 mg tablet 1,000 mg PO DIRECTED PRN 12/24/21 12/24/21 History (Tylenol Extra Strength) docusate sodium 100 mg capsule 100 mg PO DAILY PRN 12/24/21 12/24/21 History (Stool Softener) Personal History Beliefs That Will Affect Care: None Patient History Medical History Diabetes mellitus Dyslipidemia HTN (hypertension) Hypothyroidism Major depressive disorder, recurrent severe without psychotic features Tobacco use disorder Surgical History History of Hx of tonsillectomy Family History Brother Hypertension Social History Smoking Status: Current some day smoker Tobacco Type: Cigarettes Cigarettes Per Day: 0.5; Hx Alcohol Use: Yes Alcohol type: beer and wine Alcohol Intake Frequency: 4 or More x per/Week Hx Substance Use: No Preferred Language: Palestinian Communication Ability: Effective Lumber Tailer Required: No Beliefs That Will Affect Care: None marital status: / Current Living Situation: Alone current occupational status: retired Feels Safe at Home: Yes Assistive Devices: Walker Physical Exam Psychiatric: Orientation: alert and oriented x 3 Apperance: appropriately groomed Eye Contact: good eye contact Motor Behavior: no abnormal motor movements Speech: normal rate/rhythm/volume of speech Affect: + depressed affect Mood: + depressed mood Thought Process: goal directed thought process Thought Content: reality based without delusions Suicidal Thoughts: denies suicidal thoughts (but passive SI at home) Homicidal Thoughts: denies homicidal thoughts Hallucinations: no auditory hallucinations and no visual hallucinations Cognition: attention grossly intact and language grossly intact Estimated Intelligence: consistent with education level Insight: + fair insight Vital Signs (Past 24 Hours): Last Vital Signs Temp 36.6 C 12/25/21 07:25 Pulse 64 12/25/21 07:25 Resp 17 12/25/21 07:25 BP 144/79 H 12/25/21 07:25 Pulse Ox 92 12/25/21 07:25 Review of Systems All systems reviewed & are unremarkable except as noted in HPI & below Results & Data (PSY) Medications Administered Acetaminophen (Acetaminophen 325 Mg Tab) 650 mg PO Q4H PRN PRN Reason: pain/fever Stop: 01/24/22 01:32 Last Admin: 12/25/21 11:47 Dose: 650 mg Documented by: [id number] Admin: 12/25/21 05:09 Dose: 650 mg Documented by: [id number] Bupropion HCl (Bupropion Xl 300 Mg Tabcr) 300 mg PO QAM SACHI Stop: 01/24/22 08:59 Last Admin: 12/25/21 09:45 Dose: 300 mg Documented by: [id number] Clonazepam (Clonazepam 0.5 Mg Tab) 0.5 mg PO DAILY PRN PRN Reason: Anxiety Stop: 01/24/22 01:32 Last Admin: 12/25/21 11:47 Dose: 0.5 mg Documented by: [id number] Clopidogrel Bisulfate (Clopidogrel Bisulfate 75 Mg Tab) 75 mg PO QAM [facility] Stop: 01/24/22 08:59 Last Admin: 12/25/21 09:45 Dose: 75 mg Documented by: [id number] Enoxaparin Sodium (Enoxaparin Inj 40 Mg/0.4 Ml Syr) 40 mg SQ Q24H [facility] Stop: 01/24/22 08:59 Last Admin: 12/25/21 09:42 Dose: 40 mg Documented by: [id number] Pantoprazole Sodium 40 mg/ (Syringe) 10 mls @ 5 mls/min IV BID [facility] Stop: 01/24/22 08:59 Last Admin: 12/25/21 09:42 Dose: 5 mls/min Documented by: [id number] Sodium Chloride (1/2 Nss) 1,000 mls @ 75 mls/hr IV .[id number] [facility] Stop: 12/25/21 14:52 Last Admin: 12/25/21 01:55 Dose: 75 mls/hr Documented by: [id number] Insulin Aspart (Insulin Aspart Per Unit) 0 units SC ACHS [facility] Stop: 01/24/22 07:29 Last Admin: 12/25/21 12:53 Dose: Not Given Documented by: [id number] Admin: 12/25/21 09:52 Dose: 2 units Documented by: [id number] Cosigned by: [id number] Insulin Glargine (Insulin Glargine Solostar 100 Units/Ml 3 Ml Pen) 5 units SC BID [facility] Stop: 01/24/22 08:59 Last Admin: 12/25/21 09:43 Dose: 5 units Documented by: [id number] Cosigned by: [id number] Levothyroxine Sodium (Levothyroxine Sodium 112 Mcg Tablet) 112 mcg PO DAILYBB [facility] Stop: 01/24/22 06:29 Last Admin: 12/25/21 06:16 Dose: 112 mcg Documented by: [id number] Lisinopril (Lisinopril 40 Mg Tab) 40 mg PO BID [facility] Stop: 01/24/22 08:59 Last Admin: 12/25/21 09:44 Dose: 40 mg Documented by: [id number] Multivitamins (Multivitamin Tab) 1 tab PO DAILY [facility] Stop: 01/24/22 08:59 Last Admin: 12/25/21 09:45 Dose: 1 tab Documented by: [id number] Venlafaxine HCl (Venlafaxine Hcl Xr 37.5 Mg Capxr) 37.5 mg PO QAM [facility] Stop: 01/24/22 08:59 Last Admin: 12/25/21 09:45 Dose: 37.5 mg Documented by: [id number] Coding Level of Care Code 54212 [facility] Intl Hosp Care Lvl 2 Diagnoses Major depression F32.9 Acute hyponatremia E87.1 Abdominal pain R10.13 Abdominal location: epigastric
[2021-12-25] MEDS: NICOTINE 14 MG/24 HR PATCH TD SCH (15:22)
[2021-12-25] MEDS: FAMOTIDINE 20 MG TAB PO SCH ×2 (15:22→20:49)
[2021-12-25] MEDS: SUCRALFATE 1 GM/10 ML UDC PO SCH ×2 (17:48→20:47)
--- NOTE | 2021-12-25 18:41 | Communication Note ---
Date of Service: December 25, 2021 Seen and examined at bedside. Chart reviewed. Admitted earlier today (see H&P) for details. Reviewed [facility] consultant notes. Admitted for epigastric pain- CT A/P w ith possible gastroenteritis. Concern for PUD given dual antiplatelet therapy and continued smoking. Denies any NSAIDs use. Started on PPI, pepcid and carafate per GI and proceeding with conservative management. Liquid diet for today. Will advance in am if tolerating. No nausea, vomiting, hematochezia, hematemesis. Passing gas, no BM yet. Repeat labs in am. She resumed smoking 2 weeks back and requested for nicotine patch.
[2021-12-25] MEDS: ATORVASTATIN 40 MG TAB PO SCH (20:47)
[2021-12-25] MEDS: amLODIPine BESYLATE 5 MG TAB PO SCH (20:47)
[2021-12-25] MEDS: DOCUSATE SODIUM 100 MG CAP PO PRN (21:04)
[2021-12-26] MEDS: LEVOTHYROXINE SODIUM 112 MCG TABLET PO SCH (05:55)
--- NOTE | 2021-12-26 06:03 | Electrocardiogram Report ---
Test Reason : Blood Pressure : / mmHG Vent. Rate : 081 BPM Atrial Rate : 081 BPM P-R Int : 142 ms QRS Dur : 090 ms QT Int : 408 ms P-R-T Axes : 063 011 067 degrees QTc Int : 473 ms Sinus rhythm with Premature atrial complexes Anterior infarct , age undetermined Abnormal ECG When compared with ECG of 23-NOV-2021 05:21, Premature atrial complexes are now Present Anterior infarct is now Present Confirmed by David Castro ([id number]) on 12/26/2021 6:02:59 AM Referred By: REFERRED SELF Confirmed By:David Castro
--- NOTE | 2021-12-26 06:16 | Electrocardiogram Report ---
Test Reason : Blood Pressure : / mmHG Vent. Rate : 060 BPM Atrial Rate : 060 BPM P-R Int : 144 ms QRS Dur : 086 ms QT Int : 446 ms P-R-T Axes : 058 001 053 degrees QTc Int : 446 ms Poor data quality, interpretation may be adversely affected Normal sinus rhythm Normal ECG When compared with ECG of 24-DEC-2021 20:35, Premature atrial complexes are no longer Present Criteria for Anterior infarct are no longer Present Confirmed by David Castro ([id number]) on 12/26/2021 6:15:47 AM Referred By: REFERRED SELF Confirmed By:David Castro
[2021-12-26 08:09] LABS: Albumin Level 3.8 gm/dl (3.4-5.0); BUN Creatinine Ratio 7.4 (10-20); Bilirubin,Total 0.4 mg/dl (0.2-1.0); Calcium 9.4 mg/dl (8.5-10.1); Creatinine Clr Calc Pharmacy 61.5 ml/min; Est GFR (African American) 87.7 ml/min; Est GFR (Non-African American) 75.7 ml/min; Potassium 4.8 mmol/L (3.5-5.1); Total Protein 5.9 gm/dl (6.0-8.3)
[2021-12-26 08:14] LABS: Basophils # (auto) 0.01 K/uL (0-0.2); Basophils % (auto) 0.2 %; Eosinophils # (auto) 0.12 K/uL (0-0.5); Eosinophils % (auto) 2.3 %; Hematocrit (blood only) 37.7 % (37-47); Hemoglobin 12.5 g/dL (12.0-16.0); Immature Granulocytes # (auto) 0.01 K/uL (0.00-0.02); Immature Granulocytes % (auto) 0.2 %; Lymphocytes # (auto) 1.55 K/uL (1.2-3.4); Lymphocytes % (auto) 29.2 %; Mean Corpuscular Hemoglobin 31.3 pg (25-34); Mean Corpuscular Hgb Conc 33.2 g/dL (32-36); Mean Corpuscular Volume 94.5 fL (80-100); Mean Platelet Volume 10.3 fL (7.4-10.4); Monocytes # (auto) 0.27 K/uL (0.11-0.59); Monocytes % (auto) 5.1 %; Neutrophils # (auto) 3.35 K/uL (1.4-6.5); Platelet Count 277 K/uL (130-400); RDW Coefficient of Variation 13.3 % (11.5-14.5); RDW Standard Deviation 46.3 fL (36.4-46.3); Red Blood Count 3.99 M/uL (4.2-5.4); White Blood Count 5.31 K/uL (4.8-10.8)
[2021-12-26] MEDS: SUCRALFATE 1 GM/10 ML UDC PO SCH ×4 (08:58→20:43)
[2021-12-26] MEDS: MULTIVITAMIN TAB PO SCH (08:59)
[2021-12-26] MEDS: buPROPion XL 300 MG TABCR PO SCH (08:59)
[2021-12-26] MEDS: CLOPIDOGREL BISULFATE 75 MG TAB PO SCH (08:59)
[2021-12-26] MEDS: FAMOTIDINE 20 MG TAB PO SCH ×2 (08:59→20:41)
[2021-12-26] MEDS: ENOXAPARIN INJ 40 MG/0.4 ML SYR SQ SCH (08:59)
[2021-12-26] MEDS: lisinopril 40 MG TAB PO SCH ×2 (08:59→20:42)
[2021-12-26] MEDS: VENLAFAXINE HCL XR 37.5 MG CAPXR PO SCH (08:59)
[2021-12-26] MEDS: NICOTINE 14 MG/24 HR PATCH TD SCH (09:01)
[2021-12-26] MEDS: PANTOprazole 40 MG in SYRINGE 0 ML IV SCH (09:01)
[2021-12-26] MEDS: INSULIN GLARGINE SOLOSTAR 100 UNITS/ML 3 ML PEN SC SCH ×2 (09:28→20:58)
[2021-12-26] MEDS: INSULIN ASPART PER UNIT SC SCH ×4 (09:29→20:57)
--- NOTE | 2021-12-26 11:04 | Hospitalist Progress Note ---
Date of Service December 26, 2021 Assessment & Plan (1) Epigastric pain: (2) Tobacco use: (3) Major depression: (4) HTN (hypertension): (5) Hypothyroidism: Plan: 66-year-old female who presented to the ED with severe epigastric abdominal pain, recently had aspirin and Plavix for 3 weeks post-stroke from October. Currently only on Plavix. She had epigastric tenderness on admission 1. .Epigastric pain, possible PUD- seen by GI. CT A/P reviewed- gastroenteritis vs ileus but ileus less likely per GI. No BM since admission. - No indication for EGD currently per GI given stability and recommended conservative management with OP follow up - Continue protonix bid, pepcid bid, sucralfate qid - Repeat labs including CBC, LFT, lipase, BMP continues to remain unremarkable - Send stool clx if has diarrhea CT A/P 12/[address] findings characteristic of an ileus versus gastroenteritis. No bowel obstruction. 2. Small hiatal hernia. 3. Diverticulosis without evidence for diverticulitis. 4. Right basilar atelectasis. 5. Bilateral sacral insufficiency fractures. 6. Subacute, healing bilateral insufficiency fractures of the ischial pubic rami. 2. Recent stroke (acute infarction of right pontomedullary junction per MRI 11/23/21)- continue plavix, statin 3. Essential hypertension: Continue her amlodipine, lisinopril.BP stable. 4. Diabetes mellitus type 2- BG well controlled. Continue lantus SSI- adjust as indicated 5. Acquired hypothyroidism: Continue Synthroid. 6. Major depression- seen by psychiatry- meds adjustment and management per psych. Patient is contemplating she will need inpatient psych admission for management of her depression prior to return home. Has OP appointment with psychiatry coming Wednesday. Currently on venlafaxine, bupropion. 7. Tobacco abuse- relapsed 2 weeks back. Continue nicoderm patch DVT ppx- sc lovenox Dispo- Medsurg. Advancing diet. May need psych meds adjustment or even admission for her depression prior to discharge- Psych following Admission and Anticipated Discharge Date Admission Date: December 25, 2021 Subjective She feels okay. States abdomen is still sore. She is however tired of liquid diet and would like to try solid food- she would love to have at least toast. No N/V. No BM yet but she is expecting one today. Passing gas. She was wondering which virus caused the gastroenteritis and why endoscopy was not done- these were answered to her satisfaction. When asked if she is comfortable to go home if her medical issues resolved, she states she is not sure as she is concerned about her depression and is thinking she might need to get inpatient psych admission so her medications can be adjusted. Physical Exam Physical Exam: General: Sitting comfortably in bed eating breakfast, not in distress, on room air HEENT: EOMI, DORENE, MMM Chest: Clear breath sounds bilaterally, no wheezes or crackles CVS: Regular rate and rhythm, normal heart sounds, no murmur Abdomen: Soft, mild epigastric tenderness, not distended, normal bowel sounds Neuro: Awake, alert, oriented, conversing well, non focal Extremities: No cyanosis, clubbing or edema Results & Data Results & Data ([facility]) Vital Signs (Past 12 Hours) Vital Signs Temp Pulse Resp BP Pulse Ox 12/26/21 06:42 36.7 C 57 L 18 120/74 95 Laboratory Results Short CBC 12/26/21 Range/Units 07:31 WBC 5.31 (4.8-10.8) K/uL Hgb 12.5 (12.0-16.0) g/dL Hct 37.7 (37-47) % Plt Count 277 (130-400) K/uL BMP 12/26/21 07:31 Sodium 136 Potassium 4.8 Chloride 105 Carbon Dioxide 29 BUN 6 Creatinine 0.81 Glucose 136 H Calcium 9.4 Liver Function 12/26/21 Range/Units 07:31 Total Bilirubin 0.4 (0.2-1.0) mg/dl Direct Bilirubin 0.0 (0-0.2) mg/dl AST 13 (13-39) U/L ALT 14 (7-52) U/L Alkaline Phosphatase 62 (34-104) U/L Albumin 3.8 (3.4-5.0) gm/dl Medications Administered Current Inpatient Medications Acetaminophen (Acetaminophen 325 Mg Tab) 650 mg PO Q4H PRN PRN Reason: pain/fever Stop: 01/24/22 01:32 Last Admin: 12/25/21 11:47 Dose: 650 mg Documented by: Amlodipine Besylate (Amlodipine Besylate 5 Mg Tab) 2.5 mg PO HS [facility] Stop: 01/24/22 20:59 Last Admin: 12/25/21 20:47 Dose: 2.5 mg Documented by: Atorvastatin Calcium (Atorvastatin 40 Mg Tab) 40 mg PO HS [facility] Stop: 01/24/22 20:59 Last Admin: 12/25/21 20:47 Dose: 40 mg Documented by: Bupropion HCl (Bupropion Xl 300 Mg Tabcr) 300 mg PO QAM [facility] Stop: 01/24/22 08:59 Last Admin: 12/26/21 08:59 Dose: 300 mg Documented by: Clonazepam (Clonazepam 0.5 Mg Tab) 0.5 mg PO DAILY PRN PRN Reason: Anxiety Stop: 01/24/22 01:32 Last Admin: 12/25/21 11:47 Dose: 0.5 mg Documented by: Clopidogrel Bisulfate (Clopidogrel Bisulfate 75 Mg Tab) 75 mg PO QAM [facility] Stop: 01/24/22 08:59 Last Admin: 12/26/21 08:59 Dose: 75 mg Documented by: Dextrose (Dextrose 50% 50 Ml Syringe) 25 - 50 ml IV UD PRN; Protocol PRN Reason: Hypoglycemia Protocol Stop: 01/24/22 01:44 Docusate Sodium (Docusate Sodium 100 Mg Cap) 100 mg PO DAILY PRN PRN Reason: Constipation Stop: 01/24/22 01:32 Last Admin: 12/25/21 21:04 Dose: 100 mg Documented by: Enoxaparin Sodium (Enoxaparin Inj 40 Mg/0.4 Ml Syr) 40 mg SQ Q24H [facility] Stop: 01/24/22 08:59 Last Admin: 12/26/21 08:59 Dose: 40 mg Documented by: Famotidine (Famotidine 20 Mg Tab) 20 mg PO BID [facility] Stop: 01/24/22 13:59 Last Admin: 12/26/21 08:59 Dose: 20 mg Documented by: Glucagon (Glucagon For Inj 1 Mg Vial) 1 mg IM UD PRN; Protocol PRN Reason: Hypoglycemia Protocol Stop: 01/24/22 01:44 Glucose (Glucose 40% Gel 15 Gm Tube) 15 - 30 gm PO UD PRN; Protocol PRN Reason: Hypoglycemia Protocol Stop: 01/24/22 01:44 Glucose (Glucose 10 Tabs/Tube) 4 - 8 tabs PO UD PRN; Protocol PRN Reason: Hypoglycemia Protocol Stop: 01/24/22 01:44 Hydromorphone HCl (Hydromorphone Inj 0.5 Mg/0.5 Ml Syr) 0.5 mg IV Q3H PRN PRN Reason: Pain Stop: 01/08/22 00:26 Insulin Aspart (Insulin Aspart Per Unit) 0 units SC ACHS [facility] Stop: 01/24/22 07:29 Last Admin: 12/26/21 09:29 Dose: 5 units Documented by: Insulin Glargine (Insulin Glargine Solostar 100 Units/Ml 3 Ml Pen) 5 units SC BID [facility] Stop: 01/24/22 08:59 Last Admin: 12/26/21 09:28 Dose: 5 units Documented by: Levothyroxine Sodium (Levothyroxine Sodium 112 Mcg Tablet) 112 mcg PO DAILYBB [facility] Stop: 01/24/22 06:29 Last Admin: 12/26/21 05:55 Dose: 112 mcg Documented by: Lisinopril (Lisinopril 40 Mg Tab) 40 mg PO BID [facility] Stop: 01/24/22 08:59 Last Admin: 12/26/21 08:59 Dose: 40 mg Documented by: Miscellaneous (Carbohydrates For Hypoglycemia ) 15 - 30 gm PO UD PRN PRN Reason: Hypoglycemia Treatment Stop: 01/24/22 01:44 Miscellaneous (Remove Nicoderm Patch) 1 ea N/A DAILY@0859 [facility] Stop: 01/25/22 08:58 Last Admin: 12/26/21 09:00 Dose: 1 ea Documented by: Multivitamins (Multivitamin Tab) 1 tab PO DAILY [facility] Stop: 01/24/22 08:59 Last Admin: 12/26/21 08:59 Dose: 1 tab Documented by: Nicotine (Nicotine 14 Mg/24 Hr Patch) 14 mg TD QAM [facility] Stop: 01/24/22 13:59 Last Admin: 12/26/21 09:01 Dose: 14 mg Documented by: Ondansetron HCl (Ondansetron Inj 2 Mg/Ml 2 Ml Vial) 4 mg IV Q6H PRN PRN Reason: Nausea Stop: 01/24/22 01:32 Pantoprazole Sodium (Pantoprazole 40 Mg Tab) 40 mg PO BID [facility]; Protocol Stop: 01/25/22 20:59 Sucralfate (Sucralfate 1 Gm/10 Ml Udc) 1 gm PO QID [facility] Stop: 01/24/22 16:59 Last Admin: 12/26/21 08:58 Dose: 1 gm Documented by: Venlafaxine HCl (Venlafaxine Hcl Xr 37.5 Mg Capxr) 37.5 mg PO QAM [facility] Stop: 01/24/22 08:59 Last Admin: 12/26/21 08:59 Dose: 37.5 mg Documented by:
[2021-12-26] MEDS: DOCUSATE SODIUM 100 MG CAP PO PRN (11:16)
[2021-12-26] MEDS: clonazePAM 0.5 MG TAB PO PRN (12:51)
--- NOTE | 2021-12-26 13:06 | Communication Note ---
Date of Service: December 26, 2021 patient is in much better spirits today, is eating, voices to liaison that she prefers to return home upon discharge from medical floor and follow up with [facility] as scheduled. She denied additional needs from our service at this time. She is primarily lonely and liaison will continue to provide support while inpatient.
[2021-12-26] MEDS: amLODIPine BESYLATE 5 MG TAB PO SCH (20:40)
[2021-12-26] MEDS: ATORVASTATIN 40 MG TAB PO SCH (20:42)
[2021-12-26] MEDS: PANTOprazole 40 MG TAB PO SCH (20:42)
[2021-12-27] MEDS: LEVOTHYROXINE SODIUM 112 MCG TABLET PO SCH (05:53)
[2021-12-27] MEDS ORDERED: PHARMACY GLYCEMIC MGMT CONSULT PRN (08:33)
[2021-12-27] MEDS: INSULIN GLARGINE SOLOSTAR 100 UNITS/ML 3 ML PEN SC SCH ×2 (09:20→20:53)
[2021-12-27] MEDS: INSULIN ASPART PER UNIT SC SCH ×4 (09:21→20:53)
[2021-12-27] MEDS: NICOTINE 14 MG/24 HR PATCH TD SCH (09:28)
[2021-12-27] MEDS: ENOXAPARIN INJ 40 MG/0.4 ML SYR SQ SCH (09:28)
[2021-12-27] MEDS: ADVANCED PROBIOTIC 1250 MG CAPSULE PO SCH (10:30)
[2021-12-27] MEDS: MULTIVITAMIN TAB PO SCH (10:31)
[2021-12-27] MEDS: SUCRALFATE 1 GM/10 ML UDC PO SCH ×4 (10:31→20:54)
[2021-12-27] MEDS: lisinopril 40 MG TAB PO SCH ×2 (10:31→20:50)
[2021-12-27] MEDS: VENLAFAXINE HCL XR 37.5 MG CAPXR PO SCH (10:31)
[2021-12-27] MEDS: PANTOprazole 40 MG TAB PO SCH ×2 (10:31→20:49)
[2021-12-27] MEDS: CLOPIDOGREL BISULFATE 75 MG TAB PO SCH (10:32)
[2021-12-27] MEDS: FAMOTIDINE 20 MG TAB PO SCH ×2 (10:32→20:50)
[2021-12-27] MEDS: buPROPion XL 300 MG TABCR PO SCH (10:32)
[2021-12-27] MEDS: DOCUSATE SODIUM 100 MG CAP PO PRN (10:37)
[2021-12-27] MEDS: clonazePAM 0.5 MG TAB PO PRN (10:37)
[2021-12-27] MEDS: ACETAMINOPHEN 325 MG TAB PO PRN (10:37)
[2021-12-27] MEDS ORDERED: Nursing to Pharmacy Communication SCH (10:45)
--- NOTE | 2021-12-27 19:33 | Hospitalist Progress Note ---
Date of Service December 27, 2021 Assessment & Plan (1) Epigastric pain: (2) Tobacco use: (3) Major depression: (4) HTN (hypertension): (5) Hypothyroidism: Plan: 66-year-old female who presented to the ED 12/25 with severe epigastric abdominal pain, recently had aspirin and Plavix for 3 weeks post-stroke from October. Currently only on Plavix. She had epigastric tenderness on admission. She is being managed for the followin. .Epigastric pain, possible PUD- seen by GI. CT A/P reviewed- gastroenteritis vs ileus but ileus less likely per GI. No BM since admission. - No indication for EGD currently per GI given stability and recommended conservative management with OP follow up - Continue protonix bid, pepcid bid, sucralfate qid - Repeat labs including CBC, LFT, lipase, BMP continues to remain unremarkable - Send stool clx if has diarrhea - Pt complained of low belly pain transiently on 12/27 AM, resolved by the time of bedside exam, advancing diet, continue to monitor. CT A/P 12/[address] findings characteristic of an ileus versus gastroenteritis. No bowel obstruction. 2. Small hiatal hernia. 3. Diverticulosis without evidence for diverticulitis. 4. Right basilar atelectasis. 5. Bilateral sacral insufficiency fractures. 6. Subacute, healing bilateral insufficiency fractures of the ischial pubic rami. 2. Recent stroke (acute infarction of right pontomedullary junction per MRI 11/23/21)- continue plavix, statin 3. Essential hypertension: Continue her amlodipine, lisinopril.BP stable. 4. Diabetes mellitus type 2- BG well controlled. Continue lantus SSI- adjust as indicated 5. Acquired hypothyroidism: Continue Synthroid. 6. Major depression- seen by psychiatry- meds adjustment and management per psych. Patient is ok w/ her psychiatric evaluation while in hospital. Has OP appointment with psychiatry coming Wednesday. Currently on venlafaxine, bupropion. 7. Tobacco abuse- relapsed 2 weeks back. Continue nicoderm patch DVT ppx- sc lovenox Dispo- Medsurg. Advancing diet. likely dc in next 1-2 day Admission and Anticipated Discharge Date Admission Date: December 26, 2021 Subjective Patient seen and examined at bedside as a follow-up of epigastric pain and history of major depression. Patient was lying in bed, on room air, NAD, no new acute events overnight but early a.m. around 4 AM, patient states that she started having low belly pain with increased to 4/10 intensity late a.m., around noon at bedside exam, patient denied any pain in the lower belly, no tenderness elicited on examination. Patient did have small bowel movement today. 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 Patient made aware that if continued low belly pain will get repeat CT of the abdomen pelvis. We will advance diet to soft diet slowly and keep it at for few days. Patient denies headache/dizziness/chest pain/palpitation/cough/other review of symptoms. Physical Exam Physical Exam: GENERAL: Alert and oriented x3. NAD, on RA. HEENT: No pallor, no icterus. Pupils equal, round and reactive to light. Oral mucosa moist. NECK: No JVD, no neck masses. HEART: S1 and S2 heard. Regular rate and rhythm. No murmur, no gallop. RESPIRATORY SYSTEM: Normal AP diameter. No accessory muscle use. No wheezing, no crackles. ABDOMEN: Soft, bowel sounds present, nontender, no distention. CENTRAL NERVOUS SYSTEM: No facial droop. Speech is clear. Obeys simple commands. Moves extremities. EXTREMITIES: No edema, no erythema seen. Results & Data Results & Data ([facility]) Vital Signs (Past 12 Hours) Vital Signs Temp Pulse Resp BP Pulse Ox 12/27/21 15:30 36.8 C 69 14 113/69 94
[2021-12-27] MEDS: amLODIPine BESYLATE 5 MG TAB PO SCH (20:50)
[2021-12-27] MEDS: ATORVASTATIN 40 MG TAB PO SCH (20:50)
[2021-12-28] MEDS: LEVOTHYROXINE SODIUM 112 MCG TABLET PO SCH (06:02)
[2021-12-28 07:17] LABS: Hemoglobin 11.9 g/dL (12.0-16.0); Mean Corpuscular Hemoglobin 32.1 pg (25-34); Mean Corpuscular Volume 94.3 fL (80-100); Mean Platelet Volume 10.2 fL (7.4-10.4); Platelet Count 248 K/uL (130-400); RDW Coefficient of Variation 13.3 % (11.5-14.5); RDW Standard Deviation 46.2 fL (36.4-46.3); Red Blood Count 3.71 M/uL (4.2-5.4); White Blood Count 5.43 K/uL (4.8-10.8)
[2021-12-28 07:49] LABS: BUN Creatinine Ratio 11.1 (10-20); Creatinine Clr Calc Pharmacy 61.5 ml/min; Est GFR (African American) 87.7 ml/min; Est GFR (Non-African American) 75.7 ml/min; Magnesium 1.7 mg/dl (1.7-2.4); Phosphorus 3.4 mg/dl (2.5-4.9); Potassium 3.9 mmol/L (3.5-5.1)
[2021-12-28] MEDS: buPROPion XL 300 MG TABCR PO SCH (08:27)
[2021-12-28] MEDS: FAMOTIDINE 20 MG TAB PO SCH (08:28)
[2021-12-28] MEDS: CLOPIDOGREL BISULFATE 75 MG TAB PO SCH (08:28)
[2021-12-28] MEDS: ADVANCED PROBIOTIC 1250 MG CAPSULE PO SCH (08:29)
[2021-12-28] MEDS: lisinopril 40 MG TAB PO SCH (08:29)
[2021-12-28] MEDS: MULTIVITAMIN TAB PO SCH (08:30)
[2021-12-28] MEDS: PANTOprazole 40 MG TAB PO SCH (08:30)
[2021-12-28] MEDS: VENLAFAXINE HCL XR 37.5 MG CAPXR PO SCH (08:31)
[2021-12-28] MEDS: NICOTINE 14 MG/24 HR PATCH TD SCH (08:31)
[2021-12-28] MEDS: SUCRALFATE 1 GM/10 ML UDC PO SCH (08:31)
[2021-12-28] MEDS ORDERED: INSULIN GLARGINE SOLOSTAR 100 UNITS/ML 3 ML PEN SC SCH (09:00)
[2021-12-28] MEDS: ENOXAPARIN INJ 40 MG/0.4 ML SYR SQ SCH (09:03)
[2021-12-28] MEDS: INSULIN ASPART PER UNIT SC SCH (09:03)
--- NOTE | 2021-12-28 10:55 | Pharmacy Report ---
Pharmacy Glycemic Short Note 2 - Date of Service December 28, 2021 - Glycemic Short BSG Results (Last 24 hours): 12/27/21 12/27/21 12/27/21 12:13 17:08 20:35 Glucose POC Glucose 196 H 72 128 H 12/28/21 12/28/21 06:42 08:08 Glucose 192 H POC Glucose 206 H OUTPATIENT ANTIDIABETIC REGIMEN: * Basaglar 15-20 units SQ daily (pt sometimes splits into BID dosing) * Novolog SQ TID with meals, per scale * HbA1c: 8.5% (12/25/21) ASSESSMENT: * Ms Padilla is a 66yo diabetic F admitted with abdominal pain. * Pt was NPO, but diet is advancing slowly. * Dinner BSG has been below goal, so Novolog parameters loosened slightly this morning. * Fasting BSG is improving, but still above goal. Lantus increased slightly today. * Will continue to follow and adjust regimen as indicated. PLAN FOR INPATIENT GLYCEMIC CONTROL: * Basal insulin * Lantus 12 units SQ BID * Bolus insulin * NovoLog per scale ACHS or Q6hrs while NPO * Goal Range: Low 120 mg/dL - High 160 mg/dL * Correction Factor: 40 mg/dL/unit * Nutritional / Prandial insulin per carb ratio of 1 unit per 12 grams CHO consumed
--- NOTE | 2021-12-28 11:48 | Discharge Summary ---
Date of Service December 28, 2021 Admission HPI Per Admitting Provider DATE OF ADMISSION: 12/25/2021 CHIEF COMPLAINT: Abdominal pain. HISTORY OF PRESENT ILLNESS: This is a 66-year-old female with past medical history significant for diabetes, hypothyroidism, tobacco use disorder, hypert ension, depression, recent stroke in October ( presented with vertigo and MRI scan showed right posterior pontomedullary junction acute infarct) Plan was to continue aspirin, Plavix for 21 days and then Plavix alone. Currently, she is only on Plavix, she was in rehab. Currently, comes because of severe abdominal pain. Pain is located in the epigastric region, but is severe in nature, 10/10. Also has nausea, no vomiting. When the pain was severe, she felt like legs were weak, the weakness was same as like when she had a stroke. The weakness was improved in the rehab, but today again she felt leg weakness while climbing down steps, but currently lying in the bed, there is no weakness. With pain medication the pain is improved in the abdomen, but seems coming back. Denies any chest pain, no shortness of breath, no cough. No fever, no headache. Today when she was having severe pain, she was clenching her teeth and shaking. Denies any headache, no dizziness, no blurred vision, no earache, no runny nose, no sore throat, no cough, no difficulty swallowing. Normal bowel and bladder movements. Currently, resting comfortably and hemodynamically stable. ALLERGIES: No known drug allergies. PAST MEDICAL HISTORY: As mentioned above. PAST SURGICAL HISTORY: History of , history of tonsillectomy. FAMILY HISTORY: Significant for brother has hypertension. SOCIAL HISTORY: Currently smoking 60 cigarettes per day as per the recent H and P. Alcohol 4 or more times per week of beer or wine. No drug use. REVIEW OF SYSTEMS: As per HPI. Rest of review of systems is negative. MEDICATIONS: The patient on Tylenol Extra Strength p.r.n., amlodipine 2.5 mg p.o. at bedtime, atorvastatin 40 mg p.o. at bedtime, Basaglar insulin total 15- 20 units in divided dose of 2 times a day, bupropion 300 mg q. a.m., calcium plus D one capsule p.o. daily, Klonopin 0.5 mg p.o. daily p.r.n., Plavix 75 mg p.o. daily a.m., Colace 100 mg p.o. daily p.r.n., NovoLog sliding scale, levothyroxine 112 mcg p.o. daily, lisinopril 40 mg p.o. b.i.d., multivitamin 1 tablet p.o. daily, venlafaxine 37.5 mg p.o. daily. Admission Exam Per Admitting Provider GENERAL: Patient is alert and oriented, not in acute distress. VITAL SIGNS: Temperature 36.1, pulse 75, respiratory rate 18, blood pressure 161/81, oxygen 95% on room air. HEENT: Pupils equal, round and reactive to light. Oral mucosa moist. LUNGS: No JVD, no neck masses. CARDIOVASCULAR: S1 and S2 heard. Regular rate and rhythm. No murmur, no gallop. RESPIRATORY: Normal AP diameter. No accessory muscle use. No wheezing, no crackles. ABDOMEN: Soft. Bowel sounds are present. Epigastric tenderness present. No guarding, no rigidity, no distention. CENTRAL NERVOUS SYSTEM: Cranial nerves II-XII grossly intact, nonfocal. EXTREMITIES: No edema, no erythema. Principal Diagnosis Epigastric pain, likely PUD. Recent stroke on 11/23/2021. Tobacco abuse Discharge Exam GENERAL: Alert and oriented x3. NAD, on RA. HEENT: No pallor, no icterus. Pupils equal, round and reactive to light. Oral mucosa moist. NECK: No JVD, no neck masses. HEART: S1 and S2 heard. Regular rate and rhythm. No murmur, no gallop. RESPIRATORY SYSTEM: Normal AP diameter. No accessory muscle use. No wheezing, no crackles. ABDOMEN: Soft, bowel sounds present, nontender, no distention. CENTRAL NERVOUS SYSTEM: No facial droop. Speech is clear. Obeys simple commands. Moves extremities. EXTREMITIES: No edema, no erythema seen. Discharge Data Allergies Allergy/AdvReac Type Severity Reaction Status Date / Time No Known Allergies Allergy Verified 12/24/21 20:47 Consultations 12/24/21 23:05 ED Decision to Admit Stat 12/25/21 08:00 Consult Gastroenterology Routine Consult Psychiatry Routine Ordered Studies 12/24/21 20:42 CT abd pelvis IV con only Urgent CT head/brain wo con Urgent Hospital Course (1) Epigastric pain: (2) Tobacco use: (3) Major depression: (4) HTN (hypertension): (5) Hypothyroidism: 66-year-old female who presented to the ED 12/25 with severe epigastric abdominal pain, recently had aspirin and Plavix for 3 weeks post-stroke from October. Currently only on Plavix. She had epigastric tenderness on admission. She was managed for the followin. .Epigastric pain, possible PUD- seen by GI. CT A/P reviewed- gastroenteritis vs ileus but ileus less likely per GI. No BM since admission. - No indication for EGD currently per GI given stability and recommended conservative management with OP follow up - Continue protonix bid, pepcid bid, sucralfate qid - Repeat labs including CBC, LFT, lipase, BMP continues to remain unremarkable - Send stool clx if has diarrhea - Pt complained of low belly pain transiently on 12/27 AM, resolved by the time of bedside exam, advancing diet, continue to monitor. - Pt w/ no belly pain, stable hemodynamically, tolerating diet. Pt to continue w/ GI protective meds. CT A/P 12/[address] findings characteristic of an ileus versus gastroenteritis. No bowel obstruction. 2. Small hiatal hernia. 3. Diverticulosis without evidence for diverticulitis. 4. Right basilar atelectasis. 5. Bilateral sacral insufficiency fractures. 6. Subacute, healing bilateral insufficiency fractures of the ischial pubic rami. 2. Recent stroke (acute infarction of right pontomedullary junction per MRI 11/23/21)- continue plavix, statin. Advised against smoking. Nicotine patch on DC. 3. Essential hypertension: Continue her amlodipine, lisinopril.BP stable. 4. Diabetes mellitus type 2- BG well controlled. Continue lantus SSI- adjust as indicated 5. Acquired hypothyroidism: Continue Synthroid. 6. Major depression- seen by psychiatry- meds adjustment and management per psych. Patient is ok w/ her psychiatric evaluation while in hospital. Has OP appointment with psychiatry coming Wednesday. Currently on venlafaxine, bupropion. 7. Tobacco abuse- relapsed 2 weeks back. Continue nicoderm patch Patient being discharged to home with following instruction at the point of discharge: Follow-up with your primary care physician within a week time. For your epigastric pain, GI evaluated you while inpatient, you have been started on Protonix, Pepcid and sucralfate. If no improvement with these medications, discuss further with your primary care physician for the need to follow-up with GI doctor as an outpatient. Maintain follow-up with your outpatient psychiatry doctor. Get your blood work CMP done in a week time upon discharge and have the results forwarded to your primary care physician. Recommend against smoking, you will be discharged on nicotine patch, follow-up with your primary care physician for ongoing discussion about smoking cessation and further prescription on nicotine patch. Continue to take your medications as prescribed. Total Time Total Time Spent Total Time Spent (In Minutes): 35 Discharge Plan Discharge Items Patient Disposition: Home - Self-Care Reason For Visit: ABDOMINAL PAIN Discharge Diagnosis: Epigastric pain, likely PUD. Recent stroke on 11/23/2021. Tobacco abuse Activity: Resume your previous activity Non-emergency contact: Primary Care Provider Call non-emergency contact if: you have any medication questions, your symptoms worsen, your pain is not controlled and your temperature is above 101 Follow-up/Referrals: Deepak Arriaga, [Primary Care Provider] - Diet: Carb Consistent or DM2, Low Fiber and Low Sodium (2gm) Diet Texture: Easy to Chew Addtl Attending Provider Instructions: Follow-up with your primary care physician within a week time. For your epigastric pain, GI evaluated you while inpatient, you have been started on Protonix, Pepcid and sucralfate. If no improvement with these medications, discuss further with your primary care physician for you need to follow-up with GI doctor as an outpatient. Maintain follow-up with your outpatient psychiatry doctor. Get your blood work CMP done in a week time upon discharge and have the results forwarded to your primary care physician. Recommend against smoking, you will be discharged on nicotine patch, follow-up with your primary care physician for ongoing discussion about smoking cessation and further prescription on nicotine patch. Continue to take your medications as prescribed. Pending Studies at Discharge: No Stand-Alone Forms: [facility], Smoking Cessation Medications and DC Order Prescriptions: New nicotine 7 mg/24 hr Patch 24 Hour 14 mg transdermal QAM Qty: 28 RF: 0 famotidine 20 mg Tablet 20 mg PO BID PRN (Reason: for heart burn/indigestion) Qty: 60 RF: 0 Advanced Probiotic 625 mg (10 billion cell) Capsule 2 cap PO DAILY 14 Days Qty: 28 RF: 0 pantoprazole 40 mg Tablet,Delayed Release (Dr/Ec) 40 mg PO BID Qty: 60 RF: 0 magnesium oxide 400 mg magnesium capsule 400 mg PO DAILY Qty: 30 RF: 0 sucralfate 1 gram tablet 1 g PO QID Qty: 112 RF: 0 Continued multivitamin Tablet 1 tab PO DAILY RF: 0 venlafaxine 37.5 mg capsule,extended release 24hr 37.5 mg PO QAM RF: 0 clonazepam 0.5 mg tablet 0.5 mg PO DAILY PRN (Reason: Anxiety) RF: 0 amlodipine 2.5 mg tablet 2.5 mg PO HS RF: 0 lisinopril 40 mg tablet 40 mg PO BID RF: 0 levothyroxine [Euthyrox] 112 mcg tablet 112 mcg PO DAILYBB RF: 0 insulin aspart U-100 [Novolog Flexpen U-100 Insulin] 100 unit/mL (3 mL) Insulin Pen 0 sliding scale dose subcut TIDM RF: 0 bupropion HCl 300 mg tablet extended release 24 hr 300 mg PO QAM RF: 0 Calcium 600 + D(3) 600 mg-5 mcg (200 unit) Capsule 1 cap PO DAILY RF: 0 Basaglar KwikPen U-100 Insulin 100 unit/mL (3 mL) insulin pen 0 unit SUBCUT HS RF: 0 acetaminophen [Tylenol Extra Strength] 500 mg Tablet 1,000 mg PO DIRECTED PRN (Reason: Pain) RF: 0 docusate sodium [Stool Softener] 100 mg Capsule 100 mg PO DAILY PRN (Reason: Constipation) RF: 0 atorvastatin 40 mg Tablet 40 mg PO HS Qty: 30 RF: 1 clopidogrel 75 mg Tablet 75 mg PO QAM Qty: 30 RF: 1 Discharge Orders: Discharge Order (Routine); Ordered 12/28/21 Ordered By: Florentino Fletcher Admission Data Admit Date/Time: 12/26/21 10:47 Attending Provider: Florentino Fletcher Admit Provider: Venkata Ruiz Primary Care Provider: Deepak Arriaga Other Providers: Venkata Ruiz ; Cameron Jesus ; Joann Sy ; Lindsay Smith ; Chelsea Doan
== END 2021-12-28 12:26 | disposition home or self-care (01) | DRG 384 ==
LOC: ED 19:55 → EDINP 19:55 → 3W 12-25 04:35 → SUATTDRO 12-26 10:47

== ENCOUNTER 2023-06-18 15:37 | Inpatient (IN) ==
[2023-06-18] MEDS ORDERED: SODIUM CHLORIDE 0.9% 500 ML IV STA (15:51)
[2023-06-18] MEDS ORDERED: MoRPHine SULFATE 4 MG/ML 1 ML CARP\\VIAL IV STA (15:51)
[2023-06-18] MEDS ORDERED: ONDANSETRON INJ 2 MG/ML 2 ML VIAL IV STA (15:51)
[2023-06-18] MEDS ORDERED: MoRPHine SULFATE 4 MG/ML 1 ML CARP\\VIAL IV PRN (15:51)
[2023-06-18] MEDS ORDERED: LIDOCAINE/EPINEPH/TETRACAINE 1 EA SYR EXT STA (15:53)
--- NOTE | 2023-06-18 15:56 | Emergency Department Note ---
Impression & Plan Closed intertrochanteric fracture of left hip, Laceration of scalp, Head injury, Fall ED Provider Note NAME: ALBA DICKENS AGE: 67 SEX: F : 1955 ARRIVES VIA: Ambulance INFORMANT: Patient, ED PROVIDER(S): Bogdan Ellis DO CHIEF COMPLAINT: Fall HPI: The patient is a 67-year-old female who was in a house that she was cleaning when she tripped and fell injuring her left side. She landed on her left thigh and has had severe pain and is unable to ambulate. She also struck her head. She states she takes no blood thinners but does have a slight headache. She denies having any chest pain or difficulty breathing. She denies having any back pain. The patient denies having any numbness in the leg. She has a previous hip surgery on the right but has no previous injury to the left hip or thigh. Patient states pain is moderate to severe. She called 911 and arrived via BLS. ROS: See above HPI for pertinent positives & negatives. A total of 10 systems reviewed and were otherwise negative. PAST MEDICAL HISTORY: See Below PAST SURGICAL HISTORY: See Below FAMILY HISTORY: See Below SOCIAL HISTORY: See Below HOME MEDICATIONS: See Below ALLERGIES: See Below VITALS: See Below PHYSICAL EXAMINATION: GENERAL: Patient is awake alert in no acute distress patient is resting comfortably and showing no signs of anxiety EYES: The conjunctivae are clear. The pupils are round and reactive. EARS, NOSE, MOUTH AND THROAT: The nose is without any evidence of any deformity. Mucous membranes are moist. Tongue is midline. NECK: The neck is nontender and supple. RESPIRATORY: Normal respiratory effort is noted there is no evidence of wheezing rhonchi or rales CARDIOVASCULAR: Regular rate and rhythm noted there no murmurs rubs or gallops normal S1 normal S2. GASTROINTESTINAL: The abdomen is soft. Abdomen is nontender. BACK: No midline tenderness or or step-off noted range of motion in flexion extension as well as rotation no signs of muscle spasm noted MUSCULOSKELETAL/EXTREMITIES: There is significant swelling and deformity noted to the left thigh. SKIN: There is no obvious evidence of any rash. There are no petechiae, pallor or cyanosis noted. Pulses are symmetric in both feet. NEUROLOGIC: Patient is awake alert and oriented x3 MEDICAL DECISION MAKING: The patient is a 67-year-old female who presented to the emergency department for an evaluation of left hip pain. The patient had a fall landing onto her left hip. Her history and physical exam appear to be consistent with a lower extremity injury with fracture. Radiographic studies did confirm this. The patient was treated with IV pain medication in the emergency department. She was reevaluated multiple times. She also had a laceration to her occipital scalp. This was repaired in usual fashion. I discussed patient's laboratory and radiographic studies with her. I discussed her condition with the on-call [facility] hospitalist group as well as the on-call orthopedic group. They have agreed to evaluate the patient in the emergency department for further management and disposition. Triage Nursing notes reviewed. Prior medical records reviewed Vital Signs: reviewed and remarkable for no significant abnormalities Differential diagnosis: Fracture, dislocation, contusion, intra-abdominal, pneumothorax, intrathoracic, intracranial, neurologic, compartment syndrome, rhabdomyolysis, as well as other pathologies. ER treatment provided: See below Diagnostics interpreted by me: ECG: EKG was obtained in the emergency department. My interpretation is normal sinus rhythm at 87 bpm. There is no ectopy. There is no acute ST segment abnormalities noted. This was compared to a tracing from December 25, 2021. No changes were noted Cardiac Monitoring: An order was placed for continuous cardiac monitoring. The monitor shows a rate of 77 bpm with sinus rhythm. Laboratory studies: As stated above and show below. Imaging studies: See below. Radiographic imaging was reviewed by myself Consultation(s): I discussed this case with Kelin who is on-call for the [facility] hospitalist group. I discussed this case with Dr. Mata who is on-call for the orthopedic group this evening. I did make him aware of the patient's request of orthopedic group. He will evaluate the images. ED COURSE: Procedures: Location: Scalp Total length: 3.0 cm Complexity: Simple Verbal consent was obtained after the risks and benefits were explained, including but not limited to bleeding, scarring, infection, pain, and bone/nerve damage. At this time, the risks of the procedure are less than the risks of NOT performing the procedure. A time out was taken and the correct patient and site identified. The scalp was prepped with betadine. The target area was anesthetized with 5 ml of LET gel. Copious irrigation was performed using saline. The skin was re-prepped with betadine, the hair cleared from the wound, and a sterile field set. The wound was explored for foreign bodies and none found. Debridement was not performed. The wound edges were approximated using 7 surgical keshawn in the standard fashion. Hemostasis and excellent approximation was achieved. Antibacterial ointment and a sterile dressing applied. Detailed wound care instructions and signs and symptoms of infection reviewed with the patient. No complications and the patient tolerated the procedure well. Past Med/Surg History Medical History Dyslipidemia Hypothyroidism Major depressive disorder, recurrent severe without psychotic features Tobacco use disorder HTN (hypertension) Diabetes mellitus Surgical History Hx of tonsillectomy History of Family History Brother Hypertension Social History Smoking Status: Current every day smoker Tobacco Type: Cigarettes Cigarettes Per Day: 0.5; Hx Alcohol Use: Yes Alcohol type: beer and wine Alcohol Intake Frequency: 4 or More x per/Week Hx Substance Use: No Preferred Language: Ug[place] Communication Ability: Effective Land Use Planner Required: No Beliefs That Will Affect Care: None marital status: / Current Living Situation: Alone current occupational status: retired Feels Safe at Home: Yes Assistive Devices: Walker Allergies Allergies Allergy/AdvReac Type Severity Reaction Status Date / Time No Known Allergies Allergy Verified 01/02/22 21:14 Home Meds Home Medications Medication Instructions Recorded Confirmed amlodipine 2.5 mg tablet 2.5 mg PO PM 11/22/21 06/18/23 insulin aspart U-100 100 unit/mL 0 sliding scale dose subcut TIDM 11/22/21 06/18/23 (3 mL) subcutaneous pen (Novolog FlexPen U-100 Insulin aspart) insulin glargine 100 unit/mL (3 20 unit subcut HS 11/22/21 06/18/23 mL) subcutaneous pen (Basaglar KwikPen U-100 Insulin) levothyroxine 112 mcg tablet 112 mcg PO DAILYBB 11/22/21 06/18/23 (Euthyrox) lisinopril 40 mg tablet 40 mg PO BID 11/22/21 06/18/23 multivitamin 1 tab PO DAILY 11/22/21 06/18/23 acetaminophen 500 mg tablet 1,000 mg PO DIRECTED PRN Pain 12/24/21 06/18/23 (Tylenol Extra Strength) pravastatin 40 mg tablet 40 mg PO HS 01/02/22 06/18/23 aspirin 81 mg tablet,delayed 81 mg PO DAILY 06/18/23 06/18/23 release cholecalciferol (vitamin D3) 10 10 mcg PO HS 06/18/23 06/18/23 mcg (400 unit) tablet (Vitamin D3) Results & Data (ED) Vital Signs Vital Signs - 24 hr 06/18/23 15:27 06/18/23 15:52 06/18/23 16:57 Temperature 36.9 C Temperature Source Oral Pulse Rate 89 74 Pulse Rate from SpO2 Sensor 71 Respiratory Rate 16 18 Respiratory Depth Normal Blood Pressure 127/78 Blood Pressure Mean 94 Pulse Oximetry 96 93 94 Oxygen Delivery Method Room Air Room Air Sepsis Recent Fever Within 48 Hours No Sepsis New/Unexplained Change in Mental Status No Sepsis Action Taken by Nursing No Action Required 06/18/23 17:00 06/18/23 17:00 06/18/23 17:10 Temperature Temperature Source Pulse Rate 71 74 Pulse Rate from SpO2 Sensor 73 Respiratory Rate 23 15 Respiratory Depth Blood Pressure 129/79 Blood Pressure Mean 105 Pulse Oximetry 94 Oxygen Delivery Method Sepsis Recent Fever Within 48 Hours Sepsis New/Unexplained Change in Mental Status Sepsis Action Taken by Nursing 06/18/23 17:20 06/18/23 17:30 06/18/23 17:30 Temperature Temperature Source Pulse Rate 74 82 Pulse Rate from SpO2 Sensor 74 Respiratory Rate 16 24 Respiratory Depth Blood Pressure 140/56 L Blood Pressure Mean 75 Pulse Oximetry 91 Oxygen Delivery Method Sepsis Recent Fever Within 48 Hours Sepsis New/Unexplained Change in Mental Status Sepsis Action Taken by Nursing 06/18/23 17:40 06/18/23 17:50 06/18/23 18:00 Temperature Temperature Source Pulse Rate 79 80 77 Pulse Rate from SpO2 Sensor 80 81 78 Respiratory Rate 19 26 H 17 Respiratory Depth Blood Pressure Blood Pressure Mean Pulse Oximetry 91 92 90 Oxygen Delivery Method Sepsis Recent Fever Within 48 Hours Sepsis New/Unexplained Change in Mental Status Sepsis Action Taken by Nursing 06/18/23 18:00 Temperature Temperature Source Pulse Rate Pulse Rate from SpO2 Sensor Respiratory Rate Respiratory Depth Blood Pressure 134/71 Blood Pressure Mean 78 Pulse Oximetry Oxygen Delivery Method Sepsis Recent Fever Within 48 Hours Sepsis New/Unexplained Change in Mental Status Sepsis Action Taken by [facility] Medications Current Medication List: was personally reviewed by me Laboratory Data Attestation: I reviewed the patient's lab results. 06/18/23 16:00 06/18/23 16:00 Lab Results 06/18/23 Range/Units 16:00 WBC 19.17 H (4.8-10.8) K/ul RBC 3.84 L (4.20-5.40) M/uL Hgb 12.7 (12.0-16.0) g/dl Hct 37.5 (37.0-47.0) % MCV 97.7 (80.0-100.0) fL MCH 33.1 (25.0-34.0) pg MCHC 33.9 (32.0-36.0) g/dL RDW Std Deviation 47.7 H (36.4-46.3) fL RDW Coeff of Cindy 13.2 (11.5-14.5) % Plt Count 292 (130-400) K/uL MPV 10.6 (9.4-12.4) fL Immature Gran % (Auto) 0.8 % Neut % (Auto) 88.7 % Lymph % (Auto) 6.7 % Ellis % (Auto) 3.5 % Eos % (Auto) 0.1 % Baso % (Auto) 0.2 % Neut # (Auto) 17.01 H (1.40-6.50) K/uL Lymph # (Auto) 1.28 (1.20-3.40) K/uL Ellis # (Auto) 0.67 H (0.11-0.59) K/uL Eos # (Auto) 0.02 (0.00-0.50) K/uL Baso # (Auto) 0.03 (0.00-0.20) K/uL Immature Gran # (Auto) 0.16 (0.01-0.20) K/uL PT 10.3 (9.0-12.0) Seconds INR 0.9 (0.9-1.1) APTT 26.4 (21.0-31.0) Seconds PTT Ratio 0.9 Sodium 136 (136-145) mmol/L Potassium 4.3 (3.5-5.1) mmol/L Chloride 102 (98-107) mmol/L Carbon Dioxide 27 (21-32) mmol/L Anion Gap 7 (3-11) BUN 17 (6-23) mg/dl Creatinine 0.94 (0.6-1.2) mg/dl Est Cr Clr Drug Dosing 54.4 ml/min Est GFR ( Amer) 72.8 ml/min Est GFR (Non-Af Amer) 62.8 ml/min BUN/Creatinine Ratio 18.1 (10-20) Glucose 218 H (70-99(Fasting)) mg/dl Calcium 9.9 (8.6-10.3) mg/dl Total Bilirubin 0.4 (0.2-1.0) mg/dl AST 16 (13-39) U/L ALT 15 (7-52) U/L Alkaline Phosphatase 67 (34-104) U/L Troponin I High Sens 4.5 (0-14) pg/ml Total Protein 7.2 (6.0-8.3) gm/dl Albumin 4.4 (3.4-5.0) gm/dl Globulin 2.8 (2.5-4.0) gm/dl Albumin/Globulin Ratio 1.6 (0.9-2) Lipase 6 L (11-82) U/L Administered Medications Morphine Sulfate (Morphine Sulfate 4 Mg/Ml 1 Ml Carp\\Vial) 4 mg IV Q30M PRN PRN Reason: Pain Stop: 07/02/23 15:50 Last Admin: 06/18/23 16:41 Dose: 4 mg Documented By: ACC Discontinued Medications Sodium Chloride (Nss) 500 mls @ 999 mls/hr IV .Q31M STA Stop: 06/18/23 16:21 Last Infusion: 06/18/23 17:22 Dose: Infused Documented By: Admin: 06/18/23 16:41 Dose: 999 mls/hr Documented By: ACC Lidocaine (Lidocaine/Epineph/Tetracaine 1 Ea Syr) 1 each EXT NOW STA Stop: 06/18/23 15:54 Last Admin: 06/18/23 17:28 Dose: 1 each Documented By: GGG Morphine Sulfate (Morphine Sulfate 4 Mg/Ml 1 Ml Carp\\Vial) 4 mg IV NOW STA Stop: 06/18/23 15:52 Last Admin: 06/18/23 16:05 Dose: 4 mg Documented By: ACC Ondansetron HCl (Ondansetron Inj 2 Mg/Ml 2 Ml Vial) 4 mg IV NOW STA Stop: 06/18/23 15:52 Last Admin: 06/18/23 16:04 Dose: 4 mg Documented By: [facility] Imaging Data Attestation: I personally reviewed and interpreted this imaging study as follows: My Impression: CT the brain was obtained in the emergency department. My interpretation is no intracranial hemorrhage or mass effect, final report below. X-ray of the pelvis and left hip was obtained in the emergency department. My interpretation is comminuted displaced left intertrochanteric hip fracture. Final report below. 1 view chest x-ray was obtained in the emergency department. My interpretation is no free air or infiltrate, final report below. Radiologist's Impression: Cervical Spine CT 06/18/23 15:[address] DOSE: 1098.39 mGy.cm HISTORY: trauma TECHNIQUE: Multiaxial CT images of the cervical spine were performed and reformatted in the sagittal and coronal plane without the use of contrast. A dose lowering technique was utilized adhering to the principles of ALARA. COMPARISON: None. FINDINGS: No fractures. No subluxation. Prevertebral soft tissues and the C1-C2 interval are intact. No pneumothorax. IMPRESSION: No fractures within the cervical spine. ACT 112: Negative or not required by law. Electronically signed by: Yo Jean M.D. 06/18/2023 4:32 PM Femur X-Ray 06/18/23 15:51 XR femur LT 2V routine CLINICAL HISTORY: fall COMPARISON: CT of the abdomen and pelvis December 04, 2021. FINDINGS: There is an acute comminuted displaced intertrochanteric fracture of the left femur. Lesser trochanter is displaced. There is no distal left femoral fracture. Apparent depression of the lateral tibial plateau is likely artifactual or chronic. There is no left knee joint effusion. Old left pubic ring fractures are incidentally noted. IMPRESSION: 1. Acute comminuted displaced intertrochanteric fracture of the left femur. 2. Apparent depression of the lateral tibial plateau is likely chronic or artifactual given lack of a left knee joint effusion. If left knee pain, left knee radiographs could be obtained. ACT 112: Negative or not required by law. Electronically signed by: Sixto Hernandez M.D. 06/18/2023 4:[address] 06/18/23 15:[address] DOSE: HISTORY: trauma TECHNIQUE: Multiaxial CT images of the head were performed without the use of intravenous contrast. Automated exposure control was utilized for this study. A dose lowering technique was utilized adhering to the principles of ALARA. Comparison: Head CT 12/24/2021. Findings: The paranasal sinuses and mastoid air cells are clear. The calvarium and skull base are intact. There is no mass, hematoma, midline shift, acute infarct. White matter hypodensity is nonspecific but suggestive of microvascular ischemic change. The ventricles and sulci demonstrate mild age-related involutional changes. Impression: No acute intracranial abnormality. ACT 112: Negative or not required by law. Electronically signed by: Yo Jean M.D. 06/18/2023 4:29 PM Pelvis X-Ray 06/18/23 15:51 XR pelvis 1-2V routine CLINICAL HISTORY: fall COMPARISON: CT of the abdomen and pelvis December 24, 2021. FINDINGS: Visualized portions of the right hip arthroplasty are intact. There are old bilateral pubic ring fractures. Note is made of an acute comminuted displaced intertrochanteric fracture of the left femur. No additional acute fractures are present. IMPRESSION: Acute comminuted displaced intertrochanteric fracture of the left femur. ACT 112: Negative or not required by law. Electronically signed by: Sixto Hernandez M.D. 06/18/2023 4:50 PM Chest X-Ray 06/18/23 15:52 XR chest 1V not portable CLINICAL HISTORY: Chest pain, nonspecific. COMPARISON STUDY: Chest radiograph December 24, 2021. FINDINGS: Lung volumes are normal. Lungs are clear. There is no pneumothorax or pleural effusion. Cardiac size is normal. Mediastinal contours are normal. There is no evidence for pulmonary edema. There are several old bilateral rib fractures. IMPRESSION: No acute cardiopulmonary findings. ACT 112: Negative or not required by law. Electronically signed by: Sixto Hernandez M.D. 06/18/2023 4:50 PM Knee X-Ray 06/18/23 17:42 XR knee LT 1 or 2V routine CLINICAL HISTORY: fall COMPARISON: Left femur radiographs performed earlier today. FINDINGS: Alignment of the left knee is anatomic. There is no acute fracture. The equivocal lateral tibial plateau fracture on radiographs performed earlier today was artifactual. There is no significant joint effusion. Chondrocalcinosis is noted. There are mild degenerative changes within the left knee. IMPRESSION: No acute fracture within the left knee. The possible lateral tibial plateau fracture on prior radiographs was artifactual. ACT 112: Negative or not required by law. Electronically signed by: Sixto Hernandez M.D. 06/18/2023 6:10 PM Discharge Plan Visit Data Chief Complaint: Fall Stated Complaint: GLF- L HIP/LEG PAIN ED Provider: Bogdan Ellis Discharge Problem: Closed intertrochanteric fracture of left hip, Laceration of scalp, Head injury, Fall Patient Disposition: Being Evaluated by Hospitalist Forms Stand Alone Forms: My [facility] Prescriptions Prescriptions: No Action multivitamin Tablet 1 tab PO DAILY amlodipine 2.5 mg tablet 2.5 mg PO PM lisinopril 40 mg tablet 40 mg PO BID levothyroxine [Euthyrox] 112 mcg tablet 112 mcg PO DAILYBB insulin aspart U-100 [Novolog FlexPen U-100 Insulin] 100 unit/mL (3 mL) Insulin Pen 0 sliding scale dose subcut TIDM MDD 25 unit Rx Instructions: PER PT "USES A SLIDING SCALE, DEPENDING ON BSG". insulin glargine [Basaglar KwikPen U-100 Insulin] 100 unit/mL (3 mL) insulin pen 20 unit SUBCUT HS Rx Instructions: PER PT "HAVE BEEN DIVIDING THE DOSE, 1/2 AM, 1/2 PM" TOTAL 15-20 UNITS PER DAY. acetaminophen [Tylenol Extra Strength] 500 mg Tablet 1,000 mg PO DIRECTED PRN (Reason: Pain) cholecalciferol (vitamin D3) [Vitamin D3] 10 mcg (400 unit) Tablet 10 mcg PO HS aspirin 81 mg Tablet,Delayed Release (Dr/Ec) 81 mg PO DAILY pravastatin 40 mg tablet 40 mg PO HS Referrals Referrals: Deepak Arrigaa DO [Outside Practitioners] - Discharge Problem: Closed intertrochanteric fracture of left hip Qualifiers: Encounter type: initial encounter Fracture alignment: displaced Qualified Code(s): S72.142A - Displaced intertrochanteric fracture of left femur, initial encounter for closed fracture Laceration of scalp Qualifiers: Encounter type: initial encounter Qualified Code(s): S01.01XA - Laceration without foreign body of scalp, initial encounter Head injury Qualifiers: Encounter type: initial encounter Qualified Code(s): S09.90XA - Unspecified injury of head, initial encounter Fall Qualifiers: Encounter type: initial encounter Qualified Code(s): W19.XXXA - Unspecified fall, initial encounter
--- NOTE | 2023-06-18 16:13 | Electrocardiogram Report ---
Test Reason : Blood Pressure : / mmHG Vent. Rate : 087 BPM Atrial Rate : 087 BPM P-R Int : 136 ms QRS Dur : 086 ms QT Int : 380 ms P-R-T Axes : 066 011 070 degrees QTc Int : 457 ms Normal sinus rhythm Low voltage QRS Poor R wave progression, consider anterior SC vs. lead placement vs. LVH Abnormal ECG When compared with ECG of 25-DEC-2021 06:23, PRWP now present Confirmed by Jose Carlos White ([id number]) on 06/18/2023 4:12:50 PM Referred By: Confirmed By:Jose Carlos White
[2023-06-18 16:19] LABS: Basophils # (auto) 0.03 K/uL (0.00-0.20); Basophils % (auto) 0.2 %; Eosinophils # (auto) 0.02 K/uL (0.00-0.50); Eosinophils % (auto) 0.1 %; Hematocrit (blood only) 37.5 % (37.0-47.0); Hemoglobin 12.7 g/dl (12.0-16.0); Immature Granulocytes # (auto) 0.16 K/uL (0.01-0.20); Immature Granulocytes % (auto) 0.8 %; Lymphocytes # (auto) 1.28 K/uL (1.20-3.40); Lymphocytes % (auto) 6.7 %; Mean Corpuscular Hemoglobin 33.1 pg (25.0-34.0); Mean Corpuscular Hgb Conc 33.9 g/dL (32.0-36.0); Mean Corpuscular Volume 97.7 fL (80.0-100.0); Mean Platelet Volume 10.6 fL (9.4-12.4); Monocytes # (auto) 0.67 K/uL (0.11-0.59); Monocytes % (auto) 3.5 %; Neutrophils # (auto) 17.01 K/uL (1.40-6.50); Neutrophils % (auto) 88.7 %; Platelet Count 292 K/uL (130-400); RDW Coefficient of Variation 13.2 % (11.5-14.5); RDW Standard Deviation 47.7 fL (36.4-46.3); Red Blood Count 3.84 M/uL (4.20-5.40); White Blood Count 19.17 K/ul (4.8-10.8)
--- NOTE | 2023-06-18 16:31 | CT Scan Report ---
HEAD CT NONCONTRAST CT DOSE: HISTORY: trauma TECHNIQUE: Multiaxial CT images of the head were performed without the use of intravenous contrast. A utomated exposure control was utilized for this study. A dose lowering technique was utilized adheri ng to the principles of ALARA. Comparison: Head CT 12/24/2021. Findings: The paranasal sinuses and mastoid air cells are clear. The calvarium and skull base are int act. There is no mass, hematoma, midline shift, acute infarct. White matter hypodensity is nonspecifi c but suggestive of microvascular ischemic change. The ventricles and sulci demonstrate mild age-rela romeo involutional changes. Impression: No acute intracranial abnormality. ACT 112: Negative or not required by law. Electronically signed by: Yo Jean M.D. 06/18/2023 4:29 PM
--- NOTE | 2023-06-18 16:33 | CT Scan Report ---
CERVICAL SPINE CT CT DOSE: 1098.39 mGy.cm HISTORY: trauma TECHNIQUE: Multiaxial CT images of the cervical spine were performed and reformatted in the sagittal and coronal plane without the use of contrast. A dose lowering technique was utilized adhering to th e principles of ALARA. COMPARISON: None. FINDINGS: No fractures. No subluxation. Prevertebral soft tissues and the C1-C2 interval are intact. No pneumothorax. IMPRESSION: No fractures within the cervical spine. ACT 112: Negative or not required by law. Electronically signed by: Yo Jean M.D. 06/18/2023 4:32 PM
[2023-06-18 16:38] LABS: Albumin Globulin Ratio 1.6 (0.9-2); Albumin Level 4.4 gm/dl (3.4-5.0); BUN Creatinine Ratio 18.1 (10-20); Bilirubin,Total 0.4 mg/dl (0.2-1.0); Calcium 9.9 mg/dl (8.6-10.3); Creatinine Clr Calc Pharmacy 54.4 ml/min; Est GFR (African American) 72.8 ml/min; Est GFR (Non-African American) 62.8 ml/min; Globulin 2.8 gm/dl (2.5-4.0); Potassium 4.3 mmol/L (3.5-5.1); Total Protein 7.2 gm/dl (6.0-8.3)
[2023-06-18 16:44] LABS: Troponin I High Sensitivity 4.5 pg/ml (0-14)
[2023-06-18 16:50] LABS: INR 0.9 (0.9-1.1); Partial Thromboplastin Ratio 0.9; Partial Thromboplastin Time 26.4 Seconds (21.0-31.0); Prothrombin Time 10.3 Seconds (9.0-12.0)
--- NOTE | 2023-06-18 16:51 | XRay Report ---
XR pelvis 1-2V routine CLINICAL HISTORY: fall COMPARISON: CT of the abdomen and pelvis December 24, 2021. FINDINGS: Visualized portions of the right hip arthroplasty are intact. There are old bilateral pubi c ring fractures. Note is made of an acute comminuted displaced intertrochanteric fracture of the lef t femur. No additional acute fractures are present. IMPRESSION: Acute comminuted displaced intertrochanteric fracture of the left femur. ACT 112: Negative or not required by law. Electronically signed by: Sixto Hernandez M.D. 06/18/2023 4:50 PM
--- NOTE | 2023-06-18 16:52 | XRay Report ---
XR chest 1V not portable CLINICAL HISTORY: Chest pain, nonspecific. COMPARISON STUDY: Chest radiograph December 24, 2021. FINDINGS: Lung volumes are normal. Lungs are clear. There is no pneumothorax or pleural effusion. Car diac size is normal. Mediastinal contours are normal. There is no evidence for pulmonary edema. There are several old bilateral rib fractures. IMPRESSION: No acute cardiopulmonary findings. ACT 112: Negative or not required by law. Electronically signed by: Sixto Hernandez M.D. 06/18/2023 4:50 PM
--- NOTE | 2023-06-18 16:55 | XRay Report ---
XR femur LT 2V routine CLINICAL HISTORY: fall COMPARISON: CT of the abdomen and pelvis December 04, 2021. FINDINGS: There is an acute comminuted displaced intertrochanteric fracture of the left femur. Lesse r trochanter is displaced. There is no distal left femoral fracture. Apparent depression of the late ral tibial plateau is likely artifactual or chronic. There is no left knee joint effusion. Old left p ubic ring fractures are incidentally noted. IMPRESSION: 1. Acute comminuted displaced intertrochanteric fracture of the left femur. 2. Apparent depression of the lateral tibial plateau is likely chronic or artifactual given lack of a left knee joint effusion. If left knee pain, left knee radiographs could be obtained. ACT 112: Negative or not required by law. Electronically signed by: Sixto Hernandez M.D. 06/18/2023 4:54 PM
--- NOTE | 2023-06-18 18:07 | History & Physical Report ---
Date of Service June 18, 2023 Assessment & Plan (1) Fall: (2) Closed intertrochanteric fracture of left hip: Plan: Patient is 67-year-old female with PMH insulin-dependent DM II, HTN, stroke, hypothyroidism, depression, tobacco use presented to ER with complaint of mechanical fall and left hip pain today Left femur x-ray: Acute comminuted displaced intertrochanteric fracture of the left femur. Left knee x-ray: No acute fracture within the left knee. CXR: No acute infiltrate EKG: Sinus rhythm, rate 87, poor R wave progression per my interpretation. Plan for repeat EKG in a.m. Bedrest Tylenol, oxycodone, morphine as needed pain Ortho consult, Dr. Almonte aware CBC, BMP in am (3) Laceration of scalp: Plan: Head CT: No acute intracranial abnormality Posterior scalp laceration repaired with keshawn in ER (4) Leukocytosis: Plan: WBC: 19 Patient without fever, chills, GI symptoms, abdominal pain, cough, urinary symptoms CXR without infiltrate UA pending Repeat CBC in a.m. to further monitor. May need further work-up (5) Insulin-requiring or dependent type II diabetes mellitus: Plan: Patient self reports recent A1c and 05/2023. Continue basal bolus insulin A1c in a.m. (6) HTN (hypertension): Plan: Continue amlodipine, lisinopril (7) History of stroke: Plan: Hold aspirin currently pending surgery (8) Hypothyroidism: Plan: Continue levothyroxine (9) Tobacco use disorder: Plan: Smokes 8 to 10 cigarettes daily. Has tried to cut back Denies nicotine patch DVT Prophylaxis SCDs Full Code as per discussion with pt Follows with Dr Wagner for routine care Pt was seen and care coordinated with Dr Willams. See addendum History of Present Illness Chief Complaint: Fall, left hip pain Primary Care Provider: Estuardo Wagner MD Patient is 67-year-old female with PMH insulin-dependent DM II, HTN, stroke, hypothyroidism, depression, tobacco use presented to ER with complaint of fall and left hip pain. Patient states she was cleaning her house today when she tripped over object causing her to fall onto left side and hitting posterior head. Patient reports laceration to posterior scalp with bleeding controlled upon arrival. Denies LOC. States was unable to get up and bear weight to left leg. History of right hip replacement in past. Denies other injury. Denies fever/chills, diaphoresis, N/V/D/C, GOINS, dizziness, syncope, vision changes, neck pain, CP, SOB, cough, sore throat, rhinorrhea, abdominal pain, paresthesias, extremity edema, rashes, urinary symptoms. Allergies Allergy/AdvReac Type Severity Reaction Status Date / Time No Known Allergies Allergy Verified 01/02/22 21:14 Home Medications Medication Instructions Recorded Confirmed Type amlodipine 2.5 mg tablet 2.5 mg PO PM 11/22/21 06/18/23 History insulin aspart U-100 100 unit/mL 0 sliding scale dose subcut TIDM 11/22/21 06/18/23 History (3 mL) subcutaneous pen (Novolog FlexPen U-100 Insulin aspart) insulin glargine 100 unit/mL (3 20 unit subcut HS 11/22/21 06/18/23 History mL) subcutaneous pen (Basaglar KwikPen U-100 Insulin) levothyroxine 112 mcg tablet 112 mcg PO DAILYBB 11/22/21 06/18/23 History (Euthyrox) lisinopril 40 mg tablet 40 mg PO BID 11/22/21 06/18/23 History multivitamin 1 tab PO DAILY 11/22/21 06/18/23 History acetaminophen 500 mg tablet 1,000 mg PO DIRECTED PRN Pain 12/24/21 06/18/23 History (Tylenol Extra Strength) pravastatin 40 mg tablet 40 mg PO HS 01/02/22 06/18/23 History aspirin 81 mg tablet,delayed 81 mg PO DAILY 06/18/23 06/18/23 History release cholecalciferol (vitamin D3) 10 10 mcg PO HS 06/18/23 06/18/23 History mcg (400 unit) tablet (Vitamin D3) Past Med/Surg History Medical History (Updated 06/18/23 @ 21:06 by Ashley Brooks PA-C) Insulin-requiring or dependent type II diabetes mellitus Dyslipidemia Hypothyroidism Major depressive disorder, recurrent severe without psychotic features Tobacco use disorder HTN (hypertension) Diabetes mellitus Surgical History Hx of tonsillectomy History of Family History Brother Hypertension Social History Smoking Status: Current every day smoker Tobacco Type: Cigarettes Cigarettes Per Day: 0.5; Hx Alcohol Use: Yes Alcohol type: beer and wine Alcohol Intake Frequency: 4 or More x per/Week Hx Substance Use: No Preferred Language: Irish Communication Ability: Effective Soil Surveyor Required: No Beliefs That Will Affect Care: None marital status: / Current Living Situation: Alone current occupational status: retired Feels Safe at Home: Yes Assistive Devices: Walker Review of Systems Review of Systems: All systems reviewed & are unremarkable except as noted in HPI & below Physical Exam 2 Physical Exam: General: no acute distress, WDWN Head: normocephalic, +posterior scalp laceration repaired with keshawn Eyes: PERRL, EOM's intact, conjunctiva non-injected, anicteric ENT: normal inspection external ears, nose, mucous membranes moist Neck: supple, trachea midline Lungs: clear, no respiratory distress, no wheezing/rhonchi/rales CV: RRR, no murmur, no pretibial edema Abd: normal BS, soft, non-tender Ext: LLE: +shortened and externally rotated, +tenderness to palpation entire left hip and superior thigh, distal pulses palpable, sensation to light touch intact, No ROM attempted. Remaining extremities with normal appearance with ROM intact. Neuro: A&O x 3, no focal deficits noted, normal affect Skin: warm, dry Results & Data Results & Data Vital Signs (Past 12 Hours) Vital Signs Temp Pulse Resp BP Pulse Ox O2 Del Method 06/18/23 15:52 93 Room Air 06/18/23 15:27 36.9 C 89 16 127/78 96 Room Air Laboratory Results Short CBC 06/18/23 Range/Units 16:00 WBC 19.17 H (4.8-10.8) K/ul Hgb 12.7 (12.0-16.0) g/dl Hct 37.5 (37.0-47.0) % Plt Count 292 (130-400) K/uL BMP 06/18/23 16:00 Sodium 136 Potassium 4.3 Chloride 102 Carbon Dioxide 27 BUN 17 Creatinine 0.94 Glucose 218 H Calcium 9.9 Liver Function 06/18/23 Range/Units 16:00 Total Bilirubin 0.4 (0.2-1.0) mg/dl AST 16 (13-39) U/L ALT 15 (7-52) U/L Alkaline Phosphatase 67 (34-104) U/L Albumin 4.4 (3.4-5.0) gm/dl Diagnostic Findings Cervical Spine CT 06/18/23 15:[address] DOSE: 1098.39 mGy.cm HISTORY: trauma TECHNIQUE: Multiaxial CT images of the cervical spine were performed and reformatted in the sagittal and coronal plane without the use of contrast. A dose lowering technique was utilized adhering to the principles of ALARA. COMPARISON: None. FINDINGS: No fractures. No subluxation. Prevertebral soft tissues and the C1-C2 interval are intact. No pneumothorax. IMPRESSION: No fractures within the cervical spine. ACT 112: Negative or not required by law. Electronically signed by: Yo Jean M.D. 06/18/2023 4:32 PM Femur X-Ray 06/18/23 15:51 XR femur LT 2V routine CLINICAL HISTORY: fall COMPARISON: CT of the abdomen and pelvis December 04, 2021. FINDINGS: There is an acute comminuted displaced intertrochanteric fracture of the left femur. Lesser trochanter is displaced. There is no distal left femoral fracture. Apparent depression of the lateral tibial plateau is likely artifactual or chronic. There is no left knee joint effusion. Old left pubic ring fractures are incidentally noted. IMPRESSION: 1. Acute comminuted displaced intertrochanteric fracture of the left femur. 2. Apparent depression of the lateral tibial plateau is likely chronic or artifactual given lack of a left knee joint effusion. If left knee pain, left knee radiographs could be obtained. ACT 112: Negative or not required by law. Electronically signed by: Sixto Hernandez M.D. 06/18/2023 4:[address] 06/18/23 15:[address] DOSE: HISTORY: trauma TECHNIQUE: Multiaxial CT images of the head were performed without the use of intravenous contrast. Automated exposure control was utilized for this study. A dose lowering technique was utilized adhering to the principles of ALARA. Comparison: Head CT 12/24/2021. Findings: The paranasal sinuses and mastoid air cells are clear. The calvarium and skull base are intact. There is no mass, hematoma, midline shift, acute infarct. White matter hypodensity is nonspecific but suggestive of microvascular ischemic change. The ventricles and sulci demonstrate mild age-related involutional changes. Impression: No acute intracranial abnormality. ACT 112: Negative or not required by law. Electronically signed by: Yo Jean M.D. 06/18/2023 4:29 PM Pelvis X-Ray 06/18/23 15:51 XR pelvis 1-2V routine CLINICAL HISTORY: fall COMPARISON: CT of the abdomen and pelvis December 24, 2021. FINDINGS: Visualized portions of the right hip arthroplasty are intact. There are old bilateral pubic ring fractures. Note is made of an acute comminuted displaced intertrochanteric fracture of the left femur. No additional acute fractures are present. IMPRESSION: Acute comminuted displaced intertrochanteric fracture of the left femur. ACT 112: Negative or not required by law. Electronically signed by: Sixto Hernandez M.D. 06/18/2023 4:50 PM Chest X-Ray 06/18/23 15:52 XR chest 1V not portable CLINICAL HISTORY: Chest pain, nonspecific. COMPARISON STUDY: Chest radiograph December 24, 2021. FINDINGS: Lung volumes are normal. Lungs are clear. There is no pneumothorax or pleural effusion. Cardiac size is normal. Mediastinal contours are normal. There is no evidence for pulmonary edema. There are several old bilateral rib fractures. IMPRESSION: No acute cardiopulmonary findings. ACT 112: Negative or not required by law. Electronically signed by: Sixto Hernandez M.D. 06/18/2023 4:50 PM Knee X-Ray 06/18/23 17:42 XR knee LT 1 or 2V routine CLINICAL HISTORY: fall COMPARISON: Left femur radiographs performed earlier today. FINDINGS: Alignment of the left knee is anatomic. There is no acute fracture. The equivocal lateral tibial plateau fracture on radiographs performed earlier today was artifactual. There is no significant joint effusion. Chondrocalcinosis is noted. There are mild degenerative changes within the left knee. IMPRESSION: No acute fracture within the left knee. The possible lateral tibial plateau fracture on prior radiographs was artifactual. ACT 112: Negative or not required by law. Electronically signed by: Sixto Hernandez M.D. 06/18/2023 6:10 PM Supervising Physician Co-Signing Physician Notes Attending addendum: The patient was seen and examined in emergency room She tripped with a fall and fracture of the left hip Denies any symptoms prior to the fall and no loss of consciousness following the fall Denies any other symptoms of chest pain, palpitation, shortness of breath, nausea and/or vomiting On examination Lying in bed with minimal distress Hemodynamically stable Chestclear to auscultate bilaterally HeartS1-S2, regular Abdomenbenign Extremitytrace edema bilaterally in any movement of the left lower extremity produces pain at the hip Her labs, imaging studies and medications reviewed Status post mechanical fall with fracture of left hip Ortho has been consulted and medically remains stable Reviewed with assessment plan as outlined above by FARIBA Aguayo Dr (1) Fall Encounter type: initial encounter Qualified Code(s): W19.XXXA - Unspecified fall, initial encounter (2) Closed intertrochanteric fracture of left hip Encounter type: initial encounter Fracture alignment: displaced Qualified Code(s): S72.142A - Displaced intertrochanteric fracture of left femur, initial encounter for closed fracture (3) Laceration of scalp Encounter type: initial encounter Qualified Code(s): S01.01XA - Laceration without foreign body of scalp, initial encounter
--- NOTE | 2023-06-18 18:12 | XRay Report ---
XR knee LT 1 or 2V routine CLINICAL HISTORY: fall COMPARISON: Left femur radiographs performed earlier today. FINDINGS: Alignment of the left knee is anatomic. There is no acute fracture. The equivocal lateral tibial plateau fracture on radiographs performed earlier today was artifactual. There is no significa nt joint effusion. Chondrocalcinosis is noted. There are mild degenerative changes within the left kn ee. IMPRESSION: No acute fracture within the left knee. The possible lateral tibial plateau fracture on p rior radiographs was artifactual. ACT 112: Negative or not required by law. Electronically signed by: Sixto Hernandez M.D. 06/18/2023 6:10 PM
[2023-06-18] MEDS ORDERED: CARBOHYDRATES FOR HYPOGLYCEMIA PO PRN (21:04)
[2023-06-18] MEDS ORDERED: bisacodyL 10 MG SUPP PR PRN (21:04)
[2023-06-18] MEDS ORDERED: POLYETHYLENE (MIRALAX) 17 GM PACK PO PRN (21:04)
[2023-06-18] MEDS ORDERED: NALOXONE HCL 0.4 MG/1 ML VIAL/CARP IV PRN (21:04)
[2023-06-18] MEDS ORDERED: ONDANSETRON INJ 2 MG/ML 2 ML VIAL IV PRN (21:04)
[2023-06-18] MEDS ORDERED: GLUCOSE 10 TAB/TUBE PO PRN (21:04)
[2023-06-18] MEDS ORDERED: GLUCOSE 40% GEL 15 GM TUBE PO PRN (21:04)
[2023-06-18] MEDS ORDERED: GLUCAGON FOR INJ 1 MG VIAL SQ PRN (21:04)
[2023-06-18] MEDS ORDERED: DEXTROSE 50% 50 ML SYRINGE IV PRN (21:04)
[2023-06-18] MEDS: DOCUSATE SODIUM/SENNA 50/8.6MG TAB PO SCH (21:51)
[2023-06-18] MEDS: PRAVASTATIN SOD 40 MG TAB PO SCH (21:51)
[2023-06-18] MEDS: lisinopril 40 MG TAB PO SCH (21:51)
[2023-06-18] MEDS: amLODIPine BESYLATE 5 MG TAB PO SCH (21:51)
[2023-06-18] MEDS: CHOLECALCIFEROL 400 UNITS 10 MCG TAB PO SCH (21:51)
[2023-06-18] MEDS: MoRPHine SULFATE 4 MG/ML 1 ML CARP\\VIAL IV PRN (21:54)
[2023-06-18] MEDS: INSULIN ASPART PER UNIT CHARGE SC SCH (23:47)
[2023-06-18] MEDS: LANTUS PER UNIT CHARGE SQ SCH (23:47)
[2023-06-18] MEDS: ACETAMINOPHEN 325 MG TAB PO PRN (23:52)
[2023-06-19] MEDS ORDERED: LACTATED RINGER'S 1,000 ML IV SCH (00:05)
[2023-06-19] MEDS: MoRPHine SULFATE 4 MG/ML 1 ML CARP\\VIAL IV PRN ×4 (01:12→22:31)
[2023-06-19] MEDS ORDERED: ceFAZolin 2000MG 2,000 MG/15 ML SYR IV SCH (06:00)
[2023-06-19] MEDS: LEVOTHYROXINE SODIUM 112 MCG TABLET PO SCH (06:14)
[2023-06-19] MEDS: ACETAMINOPHEN 325 MG TAB PO PRN (06:20)
[2023-06-19 07:25] LABS: Basophils # (auto) 0.02 K/uL (0.00-0.20); Basophils % (auto) 0.2 %; Eosinophils # (auto) 0.04 K/uL (0.00-0.50); Eosinophils % (auto) 0.5 %; Hematocrit (blood only) 31.3 % (37.0-47.0); Hemoglobin 10.5 g/dl (12.0-16.0); Immature Granulocytes # (auto) 0.02 K/uL (0.01-0.20); Immature Granulocytes % (auto) 0.2 %; Lymphocytes # (auto) 2.31 K/uL (1.20-3.40); Mean Corpuscular Hemoglobin 32.8 pg (25.0-34.0); Mean Corpuscular Hgb Conc 33.5 g/dL (32.0-36.0); Mean Corpuscular Volume 97.8 fL (80.0-100.0); Mean Platelet Volume 10.6 fL (9.4-12.4); Monocytes # (auto) 0.56 K/uL (0.11-0.59); Monocytes % (auto) 6.5 %; Neutrophils # (auto) 5.61 K/uL (1.40-6.50); Neutrophils % (auto) 65.6 %; Platelet Count 221 K/uL (130-400); RDW Coefficient of Variation 13.3 % (11.5-14.5); RDW Standard Deviation 47.6 fL (36.4-46.3); White Blood Count 8.56 K/ul (4.8-10.8)
[2023-06-19 07:55] LABS: Calcium 9.6 mg/dl (8.6-10.3); Potassium 4.1 mmol/L (3.5-5.1)
[2023-06-19 08:01] LABS: BUN Creatinine Ratio 16.7 (10-20); Creatinine Clr Calc Pharmacy 65.5 ml/min; Est GFR (African American) 91.2 ml/min; Est GFR (Non-African American) 78.7 ml/min
[2023-06-19] MEDS: INSULIN ASPART PER UNIT CHARGE SC SCH ×4 (08:17→21:08)
[2023-06-19 08:27] LABS: Estimated Average Glucose 194 mg/dl; Hemoglobin A1C 8.4 % (4.5-5.6)
[2023-06-19] MEDS: LANTUS PER UNIT CHARGE SQ SCH ×2 (08:37→21:08)
[2023-06-19] MEDS: lisinopril 40 MG TAB PO SCH ×2 (08:38→21:09)
[2023-06-19] MEDS: MULTIVITAMIN TAB PO SCH (08:38)
[2023-06-19] MEDS ORDERED: BUPIVACAINE 0.5 % 5 MG/1 ML MPF 30ML VIAL ONE (08:48)
[2023-06-19] MEDS ORDERED: LIDOCAINE 1% LOCAL 20 ML VIAL ONE (08:48)
--- NOTE | 2023-06-19 08:53 | Orthopedic Consultation ---
Date of Consultation June 19, 2023 Assessment & Plan (1) Closed intertrochanteric fracture of left hip: Treatment options discussed with the patient. She has an acute intertrochanteric fracture of the left hip that will require surgical intervention. Risk, benefits, alternatives to surgery discussed with the patient and they wish to proceed. Plan will be for left trochanteric femoral nailing with Dr. Almonte later this morning. Patient did have a drop in hemoglobin from 12.7 yesterday to 10.5 this AM-acute blood loss anemia due to loss due to fracture versus dilutional. Patient is asymptomatic. Repeat CBC in the morning. Nonweightbearing left lower extremity. Continue n.p.o. for OR t marcella. Dr. Almonte will see the patient and discuss surgical plan with her prior to procedure. All questions answered. Thank you for this consultation we will continue to follow. Supervising Physician Co-Signing Physician Notes Patient seen and examined. Agree with AMBER Siegel's note as above. She has a comminuted intertrochanteric femur fracture. We will plan for cephalomedullary nailing. Patient is a poorly controlled diabetic, with hemoglobin A1c of 8.4. She was counseled that this will increase her risk of postoperative infection, and encouraged tight glucose control in the postoperative period. She is also a smoker, which increases her risk of nonunion and poor wound healing; she was encouraged to cut down or preferably quit the smoking. She also has a known diagnosis of osteoporosis, but is not currently on any bisphosphonate medications. This will need to be addressed postoperatively. Risks, benefits, and alternatives of surgery were explained in detail. The surgical procedure, as well as postoperative recovery and rehabilitation, was also explained in detail. Risks include bleeding; infection; damage to surrounding structures such as nerves, blood vessels, and tendons that run in the area; persistent pain or stiffness; nonunion; malunion; hardware failure; painful prominent hardware requiring removal; or need for further surgery. The patient understands all of this and wishes to proceed with surgery. Informed consent was obtained. History of Present Illness Reason for Consultation: Left hip fracture Requesting Physician: Sendy Brooks PA-C Attending Physician: Florentino Fletcher MD History of Present Illness 67-year-old female with past medical history significant for diabetes with Hgb A1c of 8.4, hypothyroidism, hypertension, history of CVA who presented to the emergency room via ambulance after suffering a fall. She is found to have a l eft hip fracture and was admitted to the hospital service. She does have history of right total hip arthroplasty. Patient also struck her head but did not lose consciousness. She did require laceration repair of scalp with keshawn. She is having moderate amount of pain into her left hip, no other complaints at this time. Denies chest pain, shortness of breath, nausea/vomiting/diarrhea, headaches or dizziness. Allergies Allergy/AdvReac Type Severity Reaction Status Date / Time No Known Allergies Allergy Verified 01/02/22 21:14 Home Medications Medication Instructions Recorded Confirmed Type amlodipine 2.5 mg tablet 2.5 mg PO PM 11/22/21 06/18/23 History insulin aspart U-100 100 unit/mL 0 sliding scale dose subcut TIDM 11/22/21 06/18/23 History (3 mL) subcutaneous pen (Novolog FlexPen U-100 Insulin aspart) insulin glargine 100 unit/mL (3 20 unit subcut HS 11/22/21 06/18/23 History mL) subcutaneous pen (Basaglar KwikPen U-100 Insulin) levothyroxine 112 mcg tablet 112 mcg PO DAILYBB 11/22/21 06/18/23 History (Euthyrox) lisinopril 40 mg tablet 40 mg PO BID 11/22/21 06/18/23 History multivitamin 1 tab PO DAILY 11/22/21 06/18/23 History acetaminophen 500 mg tablet 1,000 mg PO DIRECTED PRN Pain 12/24/21 06/18/23 History (Tylenol Extra Strength) pravastatin 40 mg tablet 40 mg PO HS 01/02/22 06/18/23 History aspirin 81 mg tablet,delayed 81 mg PO DAILY 06/18/23 06/18/23 History release cholecalciferol (vitamin D3) 10 10 mcg PO HS 06/18/23 06/18/23 History mcg (400 unit) tablet (Vitamin D3) Patient History Medical History (Updated 06/18/23 @ 21:06 by Ashley Brooks PA-C) Insulin-requiring or dependent type II diabetes mellitus Dyslipidemia Hypothyroidism Major depressive disorder, recurrent severe without psychotic features Tobacco use disorder HTN (hypertension) Diabetes mellitus Surgical History Hx of tonsillectomy History of Family History Brother Hypertension Social History Smoking Status: Current every day smoker Tobacco Type: Cigarettes Cigarettes Per Day: 10; Smoking End Date: 06/18/23; Second Hand Exposure: No; Do You Dip or Chew Tobacco: No; Tobacco Cessation Education Requested by Patient: No Hx Alcohol Use: Yes Alcohol type: wine Alcohol Intake Frequency: 4 or More x per/Week Hx Substance Use: No Preferred Language: Luxembourgish Communication Ability: Effective Senior Policy Advisor Required: No Beliefs That Will Affect Care: None marital status: / Current Living Situation: Alone current occupational status: retired Other Information That Helps Us Care for You: No Feels Safe at Home: Yes Safety Concerns: Feels Safe At This Time Assistive Devices: Glasses Review of Systems Review of Systems: All systems reviewed & are unremarkable except as noted in HPI & below Physical Exam Constitutional: WD/WN, vitals as above Respiratory: normal respiratory effort; no respiratory distress Cardiovascular: Rate/Rhythm: regular rate and regular rhythm Extremities: no edema Musculoskeletal: Left hip: Mild to moderate edema left thigh. Compartments are compressible with tenderness proximal femur. Her leg is shortened and externally rotated. Distally her toes are mobile. No calf tenderness. Pain with gentle logroll. Distally neurovascular status and sensation is grossly intact. Skin: no rashes, warm and dry Neurologic: normal touch/pain/proprioception Psychiatric: A+Ox3, euthymic affect Results & Data Vital Signs (Past 12 Hours) Vital Signs Temp Pulse Resp BP Pulse Ox O2 Del Method O2 Flow Rate 06/19/23 07:00 36.9 C 87 18 116/66 91 Nasal Cannula 1 06/18/23 20:55 Nasal Cannula 2 06/18/23 20:55 36.7 C 82 16 130/77 95 Nasal Cannula 2 06/18/23 20:55 36.7 C 16 130/77 95 Nasal Cannula 2 Laboratory Results Lab Results 06/18/23 06/18/23 06/18/23 Range/Units 16:00 20:30 21:45 WBC 19.17 H (4.8-10.8) K/ul RBC 3.84 L (4.20-5.40) M/uL Hgb 12.7 (12.0-16.0) g/dl Hct 37.5 (37.0-47.0) % MCV 97.7 (80.0-100.0) fL MCH 33.1 (25.0-34.0) pg MCHC 33.9 (32.0-36.0) g/dL RDW Std Deviation 47.7 H (36.4-46.3) fL RDW Coeff of Cindy 13.2 (11.5-14.5) % Plt Count 292 (130-400) K/uL MPV 10.6 (9.4-12.4) fL Immature Gran % (Auto) 0.8 % Neut % (Auto) 88.7 % Lymph % (Auto) 6.7 % Rusk % (Auto) 3.5 % Eos % (Auto) 0.1 % Baso % (Auto) 0.2 % Neut # (Auto) 17.01 H (1.40-6.50) K/uL Lymph # (Auto) 1.28 (1.20-3.40) K/uL Rusk # (Auto) 0.67 H (0.11-0.59) K/uL Eos # (Auto) 0.02 (0.00-0.50) K/uL Baso # (Auto) 0.03 (0.00-0.20) K/uL Immature Gran # (Auto) 0.16 (0.01-0.20) K/uL PT 10.3 (9.0-12.0) Seconds INR 0.9 (0.9-1.1) APTT 26.4 (21.0-31.0) Seconds PTT Ratio 0.9 Sodium 136 (136-145) mmol/L Potassium 4.3 (3.5-5.1) mmol/L Chloride 102 (98-107) mmol/L Carbon Dioxide 27 (21-32) mmol/L Anion Gap 7 (3-11) BUN 17 (6-23) mg/dl Creatinine 0.94 (0.6-1.2) mg/dl Est Cr Clr Drug Dosing 54.4 ml/min Est GFR ( Amer) 72.8 ml/min Est GFR (Non-Af Amer) 62.8 ml/min BUN/Creatinine Ratio 18.1 (10-20) Glucose 218 H (70-99(Fasting)) mg/dl POC Glucose 180 H (70-99) mg/dl Estimat Average Glucose mg/dl Hemoglobin A1c (4.5-5.6) % Calcium 9.9 (8.6-10.3) mg/dl Total Bilirubin 0.4 (0.2-1.0) mg/dl AST 16 (13-39) U/L ALT 15 (7-52) U/L Alkaline Phosphatase 67 (34-104) U/L Troponin I High Sens 4.5 (0-14) pg/ml Total Protein 7.2 (6.0-8.3) gm/dl Albumin 4.4 (3.4-5.0) gm/dl Globulin 2.8 (2.5-4.0) gm/dl Albumin/Globulin Ratio 1.6 (0.9-2) Lipase 6 L (11-82) U/L Blood Type AB Positive Antibody Screen NEGATIVE 06/18/23 06/19/23 06/19/23 Range/Units 23:24 06:16 08:23 WBC 8.56 D (4.8-10.8) K/ul RBC 3.20 L (4.20-5.40) M/uL Hgb 10.5 L (12.0-16.0) g/dl Hct 31.3 L (37.0-47.0) % MCV 97.8 (80.0-100.0) fL MCH 32.8 (25.0-34.0) pg MCHC 33.5 (32.0-36.0) g/dL RDW Std Deviation 47.6 H (36.4-46.3) fL RDW Coeff of Cindy 13.3 (11.5-14.5) % Plt Count 221 (130-400) K/uL MPV 10.6 (9.4-12.4) fL Immature Gran % (Auto) 0.2 % Neut % (Auto) 65.6 % Lymph % (Auto) 27.0 % Rusk % (Auto) 6.5 % Eos % (Auto) 0.5 % Baso % (Auto) 0.2 % Neut # (Auto) 5.61 (1.40-6.50) K/uL Lymph # (Auto) 2.31 (1.20-3.40) K/uL Rusk # (Auto) 0.56 (0.11-0.59) K/uL Eos # (Auto) 0.04 (0.00-0.50) K/uL Baso # (Auto) 0.02 (0.00-0.20) K/uL Immature Gran # (Auto) 0.02 (0.01-0.20) K/uL PT (9.0-12.0) Seconds INR (0.9-1.1) APTT (21.0-31.0) Seconds PTT Ratio Sodium 137 (136-145) mmol/L Potassium 4.1 (3.5-5.1) mmol/L Chloride 104 (98-107) mmol/L Carbon Dioxide 26 (21-32) mmol/L Anion Gap 7 (3-11) BUN 13 (6-23) mg/dl Creatinine 0.78 (0.6-1.2) mg/dl Est Cr Clr Drug Dosing 65.5 ml/min Est GFR ( Amer) 91.2 ml/min Est GFR (Non-Af Amer) 78.7 ml/min BUN/Creatinine Ratio 16.7 (10-20) Glucose 92 (70-99(Fasting)) mg/dl POC Glucose 262 H 93 123 H (70-99) mg/dl Estimat Average Glucose 194 mg/dl Hemoglobin A1c 8.4 H (4.5-5.6) % Calcium 9.6 (8.6-10.3) mg/dl Total Bilirubin (0.2-1.0) mg/dl AST (13-39) U/L ALT (7-52) U/L Alkaline Phosphatase (34-104) U/L Troponin I High Sens (0-14) pg/ml Total Protein (6.0-8.3) gm/dl Albumin (3.4-5.0) gm/dl Globulin (2.5-4.0) gm/dl Albumin/Globulin Ratio (0.9-2) Lipase (11-82) U/L Blood Type Antibody Screen Diagnostic Findings XR pelvis 1-2V routine CLINICAL HISTORY: fall COMPARISON: CT of the abdomen and pelvis December 24, 2021. FINDINGS: Visualized portions of the right hip arthroplasty are intact. There are old bilateral pubic ring fractures. Note is made of an acute comminuted displaced intertrochanteric fracture of the left femur. No additional acute fractures are present. IMPRESSION: Acute comminuted displaced intertrochanteric fracture of the left femur. (1) Closed intertrochanteric fracture of left hip Encounter type: initial encounter Fracture alignment: displaced Qualified Code(s): S72.142A - Displaced intertrochanteric fracture of left femur, initial encounter for closed fracture
[2023-06-19] MEDS ORDERED: ATROPINE SULFATE 0.1 MG/ML 10ML SYR IV PRN (09:46)
[2023-06-19] MEDS ORDERED: ePHEDrine sulfate 50 MG/ML AMP IV PRN (09:46)
[2023-06-19] MEDS ORDERED: ONDANSETRON INJ 2 MG/ML 2 ML VIAL IV PRN (09:46)
--- NOTE | 2023-06-19 09:48 | Anesthesiology Consultation ---
Date of Service June 19, 2023 Assessment & Plan Chart Review Chart Review: Acceptable Risk for Surgery and Patient NOT seen in Pre Admission Testing Consults Requested none History Surgery Operation Date: 06/19/23 07:30 Proposed Procedures p Intramedullary Romie Femur Retrograde(Left) - Mark Almonte M.D. Height/Weight Height: 5 ft 6 in Weight: 69.6 kg Allergies Allergy/AdvReac Type Severity Reaction Status Date / Time No Known Allergies Allergy Verified 01/02/22 21:14 Medications Home Medications Medication Instructions Recorded Confirmed Last Taken amlodipine 2.5 mg tablet 2.5 mg PO PM 11/22/21 06/18/23 06/17/23 insulin aspart U-100 100 unit/mL 0 sliding scale dose subcut TIDM 11/22/21 06/18/23 06/18/23 (3 mL) subcutaneous pen (Novolog FlexPen U-100 Insulin aspart) insulin glargine 100 unit/mL (3 20 unit subcut HS 11/22/21 06/18/23 06/17/23 mL) subcutaneous pen (Basaglar KwikPen U-100 Insulin) levothyroxine 112 mcg tablet 112 mcg PO DAILYBB 11/22/21 06/18/23 06/18/23 (Euthyrox) lisinopril 40 mg tablet 40 mg PO BID 11/22/21 06/18/23 06/18/23 multivitamin 1 tab PO DAILY 11/22/21 06/18/23 06/18/23 acetaminophen 500 mg tablet 1,000 mg PO DIRECTED PRN Pain 12/24/21 06/18/23 12/24/21 13:00 (Tylenol Extra Strength) pravastatin 40 mg tablet 40 mg PO HS 01/02/22 06/18/23 06/17/23 aspirin 81 mg tablet,delayed 81 mg PO DAILY 06/18/23 06/18/23 06/18/23 release cholecalciferol (vitamin D3) 10 10 mcg PO HS 06/18/23 06/18/23 06/17/23 mcg (400 unit) tablet (Vitamin D3) Active Medications Generic Name Dose Route Start Last Admin Trade Name Freq PRN Reason Stop Dose Admin Acetaminophen 650 mg 06/18/23 21:04 06/19/23 06:20 Acetaminophen 325 Mg Tab PO 07/18/23 21:03 650 mg Q4H PRN Administration pain/fever Amlodipine Besylate 2.5 mg 06/18/23 21:04 06/18/23 21:51 Amlodipine Besylate 5 Mg Tab PO 07/18/23 21:03 2.5 mg PM SACHI Administration Lactated Ringer's 1,000 mls @ 80 mls/hr 06/19/23 00:05 06/19/23 00:05 Lr IV 06/19/23 12:34 80 mls/hr .[id number] SACHI Administration Insulin Aspart 0 units 06/18/23 21:30 06/19/23 08:17 Insulin Aspart Per Unit Charge SC 07/18/23 21:29 Not Given Q6 SACHI Insulin Glargine 0 units 06/18/23 21:04 06/19/23 08:37 Lantus Per Unit Charge SQ 07/18/23 21:03 5 units BID SACHI Administration Levothyroxine Sodium 112 mcg 06/19/23 06:30 06/19/23 06:14 Levothyroxine Sodium 112 Mcg Tablet PO 07/19/23 06:29 112 mcg DAILYBB SACHI Administration Lisinopril 40 mg 06/18/23 21:04 06/19/23 08:38 Lisinopril 40 Mg Tab PO 07/18/23 21:03 40 mg BID SACHI Administration Morphine Sulfate 4 mg 06/18/23 21:04 06/19/23 07:29 Morphine Sulfate 4 Mg/Ml 1 Ml Carp\Vial IV 07/02/23 21:03 4 mg Q3H PRN Administration Pain (6,7,8,9,10) Multivitamins 1 tab 06/19/23 09:00 06/19/23 08:38 Multivitamin Tab PO 07/19/23 08:59 1 tab DAILY SACHI Administration Ondansetron HCl 4 mg 06/18/23 21:04 06/18/23 21:22 Ondansetron Inj 2 Mg/Ml 2 Ml Vial IV 07/18/23 21:03 4 mg Q6H PRN Administration Nausea Pravastatin Sodium 40 mg 06/18/23 21:04 06/18/23 21:51 Pravastatin Sod 40 Mg Tab PO 07/18/23 21:03 40 mg HS SACHI Administration Senna/Docusate Sodium 2 tab 06/18/23 21:04 06/18/23 21:51 Docusate Sodium/Senna 50/8.6mg Tab PO 07/18/23 21:03 2 tab HS SACHI Administration Vitamin D 400 units 06/18/23 21:04 06/18/23 21:51 Cholecalciferol 400 Units 10 Mcg Tab PO 07/18/23 21:03 400 units HS SACHI Administration Past Medical History Medical History (Updated 06/18/23 @ 21:06 by Ashley Brooks PA-C) Insulin-requiring or dependent type II diabetes mellitus Dyslipidemia Hypothyroidism Major depressive disorder, recurrent severe without psychotic features Tobacco use disorder HTN (hypertension) Diabetes mellitus Past Family History Family History Brother Hypertension Past Surgical History Surgical History Hx of tonsillectomy History of Social History Smoking Status: Current every day smoker tobacco type: cigarettes Smoking cigarettes per day: 10 Do You Dip or Chew Tobacco: No Smoking End Date: 06/18/23 Hx Alcohol Use: Yes Alcohol type: wine alcohol intake frequency: holidays/special occasions only Hx Substance Use: No substance use type: does not use Physical Exam Vital Signs Last Vital Signs Temp 36.9 C 06/19/23 07:00 Pulse 87 06/19/23 07:00 Resp 18 06/19/23 07:00 BP 116/66 06/19/23 07:00 Pulse Ox 91 06/19/23 07:00 O2 Del Method Nasal Cannula 06/19/23 07:00 O2 Flow Rate 1 06/19/23 07:00 Constitutional WD/WN, vitals as above Respiratory normal respiratory effort; no respiratory distress Cardiovascular Rate/Rhythm: regular rate and regular rhythm Extremities: no edema Skin no rashes, warm and dry Neurologic normal touch/pain/proprioception Psychiatric A+Ox3, euthymic affect Testing Laboratory Results 06/19/23 06:16 06/19/23 06:16 PT 10.3 Seconds (9.0-12.0) 06/18/23 16:00 INR 0.9 (0.9-1.1) 06/18/23 16:00 APTT 26.4 Seconds (21.0-31.0) 06/18/23 16:00 Hemoglobin A1c 8.4 % (4.5-5.6) H 06/19/23 06:16 Blood Type AB Positive 06/18/23 21:45 Antibody Screen NEGATIVE 06/18/23 21:45 06/19/23 06/19/23 06/18/23 08:23 06:16 23:24 POC Glucose 123 H 93 262 H
[2023-06-19] MEDS ORDERED: MIDAZOLAM HCL 1 MG/ML 2ML VIAL ONE (09:55)
[2023-06-19] MEDS ORDERED: fentaNYL citrate PF 100 MCG/2 ML VIAL ONE (09:55)
--- NOTE | 2023-06-19 10:40 | History & Physical Bridge Note ---
Date of Service June 19, 2023 History & Physical Bridge Note I have examined the patient, reviewed the History & Physical and in the interval since the performance of the History & Physical I have noted the following changes of clinical significance: no changes noted
[2023-06-19] MEDS ORDERED: ceFAZolin 330 MG/ML 1 GM VIAL ONE (11:07)
[2023-06-19] MEDS ORDERED: LIDOCAINE 2% 2 ML VIAL/AMP(20MG/ML) INFIL ONE (11:25)
[2023-06-19] MEDS ORDERED: ONDANSETRON INJ 2 MG/ML 2 ML VIAL ONE (11:25)
[2023-06-19] MEDS ORDERED: PROPOFOL IV EMULSION 10 MG/ML 20 ML VIAL IV ONE (11:25)
[2023-06-19] MEDS ORDERED: ROCURONIUM BROMIDE 10 MG/ML 5 ML VIAL IV ONE (11:25)
[2023-06-19] MEDS ORDERED: PHENYLEPHRINE HCL 10 MG/ML VIAL ONE (11:37)
[2023-06-19] MEDS ORDERED: SUGAMMADEX SODIUM 200 MG/2 ML VIAL IV ONE (11:42)
--- NOTE | 2023-06-19 12:12 | Operative Report ---
Post Operative Report Pre & Post Diagnosis Operation Date: 06/19/23 07:30 Pre-Op Diagnosis: Left hip comminuted intertrochanteric femur fracture Post-Op Diagnosis: Left hip comminuted intertrochanteric femur fracture I identified the patient and participated in the time-out.: Yes Procedure Operation Date: 06/19/23 07:30 Actual Procedures Left hip short cephalomedullary nailing for intertrochanteric femur fracture (58079) - Mark Almonte M.D. Surgeon Mark Almonte MD Valet Attendant None Estimated Blood Loss 50 Findings Consistent with Post-Op Diagnosis Specimens None Anesthesia Type General Complications none Disposition Disposition: Recovery Room Indications Ms. Padilla is a 67-year-old female who injured her left hip during a ground- level fall yesterday. History, clinical exam, and imaging were consistent with the above diagnosis. Risks, benefits, and alternatives of surgery were explained in detail. The patient understood all this and wished to proceed. Description of Procedure Implants: Synthes Short (170mm) 130 degree 11 mm Trochanteric Fixation Nail, 11mm helical blade, 5mm distal locking screw Patient was identified in the preoperative holding area. Operative extremity was marked. Patient was then brought back to the operating room, and general anesthesia was induced without complication. Appropriate weight-based dose of Ancef was infused intravenously for antibiotic prophylaxis. Patient was then positioned on the fracture table with the traction apparatus. The nonoperative hip was flexed and placed into the well leg oscar. Longitudinal traction was applied to the operative hip. Fracture reduction was then performed under fluoroscopic imaging. Once acceptable reduction had been achieved, the left hip was then prepped and draped in a standard sterile fashion using Chlorhexidine prep. I first made an incision just proximal to the greater trochanter in line with the femoral shaft axis, and split the fibers of the iliotibial band. I then bluntly palpated down to the greater trochanter and inserted the guidewire down to the tip of the greater trochanter. It was appropriately positioned on AP and lateral images, and then driven into the proximal femur. I then inserted the soft tissue protector down to the tip of the greater trochanter and then passed the entry reamer over top of the guidewire. It was advanced down towards the lesser trochanter to open the proximal femur. I then inserted the Synthes short TFN attached to the targeting arm into the proximal femur. The nail felt too tight within the femoral canal, and I therefore removed it and decided to ream the canal to avoid incarceration of the implant within the femoral canal. Ball- tipped guidewire was inserted into the femoral canal, and I then reamed sequentially up to 1 mm over the nail diameter. The nail was then reinserted into the femoral canal. I malleted it down to an appropriate depth for proper trajectory of the helical blade into the femoral head. Once the nail was at an appropriate depth, I then attached the targeting guide for the helical blade onto the targeting arm. Incision was made in line with the guide through the skin and iliotibial band. The guide sleeve was placed against the lateral cortex of the femur. Guidewire was then inserted through the guide and up into the femoral neck and head. I verified proper placement and trajectory under both AP and lateral images. I advanced the guidewire to the subchondral bone in the femoral head and verified proper depth on orthogonal images. I then measured the depth off of the guidewire. The drill for the helical blade was then set at an appropriate level to match the measured length. The drill was then advanced to the set depth. An appropriate length helical blade was selected and malleted into place over the guidewire. The fracture site was then compressed through the helical blade with the compression ring. I then deployed the set screw proximally to prevent rotation of the helical blade during fracture compression. Fracture compression was then applied using the compression ring on the helical blade targeting sleeve. I then made an incision for the distal locking screw in line with the drill guide through skin and iliotibial band. I then placed the drill sleeve down on the lateral cortex of the femur and drilled through the distal locking hole. Screw length was then measured off of the calibrated drill bit, and an appropriate length was selected and then inserted. The screw length was verified under fluoroscopic imaging. Final fluoroscopic images were then obtained to ensure proper hardware placement, screw length, and fracture reduction. The wounds were then copiously irrigated with sterile saline. I then closed the iliotibial band and deep dermal tissue with #0 Vicryl suture. Subcutaneous tissues closed with 3-0 Vicryl suture, and skin was closed with keshawn. Sterile dressings were then applied with Xeroform, sterile gauze, and foam tape. Drapes were then removed and traction apparatus was disconnected. The patient was awakened from general anesthesia, transferred over to the stretcher, and taken to the Post Anesthesia Care Unit in stable condition. There were no immediate complications from the procedure. I was present and scrubbed for the entire procedure. I attest to the content of the Intraoperative Record and any orders documented therein. Any exceptions are noted below.
[2023-06-19] MEDS ORDERED: PROMETHAZINE HCL 6.25 MG in SODIUM CHLORIDE 0.9% 50 ML IV STA (12:41)
[2023-06-19] MEDS ORDERED: PROMETHAZINE HCL INJ 25 MG/ML 1 ML VIAL ONE (12:42)
[2023-06-19] MEDS: HYDROmorphone INJ 1 MG/ML SYRINGE IV PRN ×2 (12:45→12:50)
--- NOTE | 2023-06-19 13:05 | Anesthesiology Progress Note ---
Date of Service June 19, 2023 Anesthesia Post Procedure Vital Signs Vital Signs: Temp Pulse Pulse Pulse Resp BP BP 06/19/23 13:00 78 15 137/68 06/19/23 12:50 84 14 140/55 L 06/19/23 12:40 85 16 137/58 L 06/19/23 12:30 89 22 130/63 06/19/23 12:20 86 21 129/65 06/19/23 12:13 36.0 C L 85 15 123/62 06/19/23 07:20 06/19/23 07:00 36.9 C 87 18 116/66 06/18/23 20:55 06/18/23 20:55 36.7 C 82 16 130/77 06/18/23 20:55 36.7 C 16 130/77 06/18/23 20:31 144/54 H 06/18/23 20:31 88 17 06/18/23 20:00 81 17 06/18/23 20:00 137/76 06/18/23 19:30 133/78 06/18/23 19:30 79 14 06/18/23 19:00 86 20 06/18/23 19:00 137/78 06/18/23 18:31 141/71 H 06/18/23 18:31 92 H 24 06/18/23 18:00 134/71 06/18/23 18:00 77 17 06/18/23 17:50 80 26 H 06/18/23 17:40 79 19 06/18/23 17:30 140/56 L 06/18/23 17:30 82 24 06/18/23 17:20 74 16 06/18/23 17:10 74 15 06/18/23 17:00 129/79 06/18/23 17:00 71 23 06/18/23 16:57 74 18 06/18/23 16:56 71 06/18/23 15:52 06/18/23 15:27 36.9 C 89 16 127/78 Pulse Ox O2 Del Method O2 Flow Rate 06/19/23 13:00 94 Nasal Cannula 2 06/19/23 12:50 92 Nasal Cannula 2 06/19/23 12:40 95 Nasal Cannula 2 06/19/23 12:30 95 Oxymask 10 06/19/23 12:20 96 Oxymask 10 06/19/23 12:13 97 Oxymask 10 06/19/23 07:20 Nasal Cannula 2 06/19/23 07:00 91 Nasal Cannula 2 06/18/23 20:55 Nasal Cannula 2 06/18/23 20:55 95 Nasal Cannula 2 06/18/23 20:55 95 Nasal Cannula 2 06/18/23 20:31 06/18/23 20:31 06/18/23 20:00 100 06/18/23 20:00 06/18/23 19:30 06/18/23 19:30 98 06/18/23 19:00 90 06/18/23 19:00 06/18/23 18:31 06/18/23 18:31 93 06/18/23 18:00 06/18/23 18:00 90 06/18/23 17:50 92 06/18/23 17:40 91 06/18/23 17:30 06/18/23 17:30 06/18/23 17:20 91 06/18/23 17:10 94 06/18/23 17:00 06/18/23 17:00 06/18/23 16:57 94 06/18/23 16:56 06/18/23 15:52 93 Room Air 06/18/23 15:27 96 Room Air Pain Intensity Hip: Pain Intensity: 6 Left Hip: Pain Intensity: 5 Transfer of Care Handoff Completed per policy Notes Mental Status: alert / awake / arousable Patient Amnestic to Procedure: Yes Nausea / Vomiting: adequately controlled Pain: adequately controlled Airway Patency, RR, SpO2: stable & adequate BP & HR: stable & adequate Hydration State: stable & adequate Anesthetic Complications: no major complications apparent
--- NOTE | 2023-06-19 13:15 | Fluoroscopy Report ---
INTRAOPERATIVE RADIOGRAPHS CLINICAL HISTORY: Open reduction and internal fixation of the left proximal femur. Fluoro time: 71 seconds Ka,r: 14.59 mGy FINDINGS: 4 spot fluoroscopic views of the left femur are correlated with radiographs dated 3. Intertrochanteric and intramedullary nails have been placed transfixing an intertrochanteric fract ure. Near anatomic alignment is restored. A single cortical screw transfixes the distal end of the in tramedullary nail. There is persistent medial displacement of the lesser trochanter. There is chronic deformity of the left pubic ring. IMPRESSION: Intraoperative images from open reduction and internal fixation of the left proximal femu r. Electronically signed by: Mickey Belle M.D. 06/19/2023 1:13 PM
--- NOTE | 2023-06-19 14:00 | XRay Report ---
LEFT HIP 2 VIEWS CLINICAL HISTORY: Postoperative examination. FINDINGS: AP and crosstable lateral portable views of the left hip are compared to study dated 2022. The skeletal structures are osteopenic. Intertrochanteric and intramedullary nails have been pl aced transfixing an intertrochanteric fracture. Near anatomic alignment is restored. A single cortica l lag screw transfixes the distal end of the intramedullary nail. There is persistent medial displace ment of the lesser trochanter. Skin clips, subcutaneous gas, and soft tissue edema overlying the left hip are expected postsurgical changes. There is chronic posttraumatic deformity of the left pubic ri ng. IMPRESSION: Expected postoperative findings status post open reduction and internal fixation of the l eft proximal femur. Near-anatomic alignment has been restored Electronically signed by: Mickey Belle M.D. 06/19/2023 1:57 PM
--- NOTE | 2023-06-19 15:22 | Hospitalist Progress Note ---
Date of Service June 19, 2023 Assessment & Plan (1) Closed intertrochanteric fracture of left hip: Plan 67-year-old female with PMH of insulin-dependent DM II, HTN, stroke, hypothyroidism, depression, tobacco use presented to ER with complaint of mechanical fall and left hip pain. She is being managed for the following: Mechanical Fall: Closed intertrochanteric fracture of left hip: Left femur x-ray: Acute comminuted displaced intertrochanteric fracture of the left femur. Left knee x-ray: No acute fracture within the left knee. CXR: No acute infiltrate Left hip short cephalomedullary nailing for intertrochanteric femur fracture on 06/19/23 by Mark Almonte M.D. Tylenol, oxycodone, morphine as needed pain. Nausea control. Bowel regimen. Ortho on board, appreciate recs. Labs in AM. Laceration of scalp: CT head with no acute finding. Posterior scalp laceration repaired with keshawn in ED. Leukocytosis: Admitting leukocytosis of 19 K, patient with no fever chills, CXR without infiltrate, UA negative for UTI. Likely reactive secondary to acute fracture. WBC trended down to normal today. Insulin-requiring or dependent type II diabetes mellitus: Patient uses insulin. A1c of 8.4 this admission. art educator consult. Need more discussion on her diabetic management once he is more alert. Other chronic medical conditions: Continue with/resume home meds as and when able. Hypertensioncontinue home amlodipine/lisinopril with hold parameters History of strokeaspirin held currently, will resume once bleeding risks deemed minimal per orthopedics. Hypothyroidismcontinue home levothyroxine Tobacco use disordersmokes 8 to 10 cigarettes a day, has tried to cut back. Denies nicotine patch. DVT prophylaxis: SCDs, chemoprophylaxis when bleeding risks deemed minimal per orthopedics. Full code Admission and Anticipated Discharge Date Admission Date: June 18, 2023 Subjective Patient was seen and examined at bedside. Patient was lying in bed, on 2 L oxygen via nasal cannula, somewhat sleepy likely secondary to effect from anesthesia, she just returned from the OR for left hip fracture. She reports operative site pain under control, feels hungry and would be eating very soon. Denies other review of symptoms. Physical Exam Physical Exam: GENERAL: drowsy/sleepy. NAD, on 2L O2 via NC. HEENT: No pallor, no icterus. Pupils equal, round and reactive to light. Oral mucosa dry. +posterior scalp laceration repaired with keshawn NECK: No JVD, no neck masses. HEART: S1 and S2 heard. Regular rate and rhythm. No murmur, no gallop. RESPIRATORY SYSTEM: Normal AP diameter. No accessory muscle use. No wheezing, no crackles. ABDOMEN: Soft, bowel sounds present, nontender, no distention. CENTRAL NERVOUS SYSTEM: No facial droop. Speech is clear. Obeys simple commands. Moves extremities. EXTREMITIES: No edema, no erythema seen. Left hip with clean dressing without soakage. Distal neurovascular status WNL. Results & Data Results & Data Vital Signs (Past 12 Hours) Vital Signs Temp Pulse Pulse Resp BP BP Pulse Ox 06/19/23 14:36 37.1 C 93 H 16 127/63 93 06/19/23 14:16 36.8 C 88 16 116/71 97 06/19/23 13:35 37.4 C 82 16 124/57 L 92 06/19/23 13:00 36.4 C L 78 15 137/68 94 06/19/23 12:50 84 14 140/55 L 92 06/19/23 12:40 85 16 137/58 L 95 06/19/23 12:30 89 22 130/63 95 06/19/23 12:20 86 21 129/65 96 06/19/23 12:13 36.0 C L 85 15 123/62 97 06/19/23 07:20 06/19/23 07:00 36.9 C 87 18 116/66 91 O2 Del Method O2 Flow Rate 06/19/23 14:36 Nasal Cannula 2 06/19/23 14:16 Nasal Cannula 2 06/19/23 13:35 Nasal Cannula 2 06/19/23 13:00 Nasal Cannula 2 06/19/23 12:50 Nasal Cannula 2 06/19/23 12:40 Nasal Cannula 2 06/19/23 12:30 Oxymask 10 06/19/23 12:20 Oxymask 10 06/19/23 12:13 Oxymask 10 06/19/23 07:20 Nasal Cannula 2 06/19/23 07:00 Nasal Cannula 2 (1) Closed intertrochanteric fracture of left hip Encounter type: initial encounter Fracture alignment: displaced Qualified Code(s): S72.142A - Displaced intertrochanteric fracture of left femur, initial encounter for closed fracture
[2023-06-19] MEDS: oxyCODONE HCL IR 5 MG TAB (IMMEDIATE RELEASE) PO PRN (18:04)
[2023-06-19] MEDS: ceFAZolin 2000MG 2,000 MG/15 ML SYR IV SCH (18:04)
[2023-06-19] MEDS: PRAVASTATIN SOD 40 MG TAB PO SCH (21:08)
[2023-06-19] MEDS: CHOLECALCIFEROL 400 UNITS 10 MCG TAB PO SCH (21:08)
[2023-06-19] MEDS: amLODIPine BESYLATE 5 MG TAB PO SCH (21:09)
[2023-06-19] MEDS: DOCUSATE SODIUM/SENNA 50/8.6MG TAB PO SCH (21:10)
[2023-06-19] MEDS ORDERED: LORazepam 0.5 MG TAB PO STA (23:39)
[2023-06-20] MEDS: ceFAZolin 2000MG 2,000 MG/15 ML SYR IV SCH (02:23)
[2023-06-20] MEDS: LEVOTHYROXINE SODIUM 112 MCG TABLET PO SCH (06:19)
[2023-06-20] MEDS: MoRPHine SULFATE 4 MG/ML 1 ML CARP\\VIAL IV PRN ×3 (07:20→15:18)
[2023-06-20 07:25] LABS: Basophils # (auto) 0.01 K/uL (0.00-0.20); Basophils % (auto) 0.1 %; Eosinophils # (auto) 0.01 K/uL (0.00-0.50); Eosinophils % (auto) 0.1 %; Hematocrit (blood only) 27.1 % (37.0-47.0); Hemoglobin 8.9 g/dl (12.0-16.0); Immature Granulocytes # (auto) 0.04 K/uL (0.01-0.20); Immature Granulocytes % (auto) 0.4 %; Lymphocytes # (auto) 1.59 K/uL (1.20-3.40); Lymphocytes % (auto) 15.8 %; Mean Corpuscular Hemoglobin 32.2 pg (25.0-34.0); Mean Corpuscular Hgb Conc 32.8 g/dL (32.0-36.0); Mean Corpuscular Volume 98.2 fL (80.0-100.0); Mean Platelet Volume 10.7 fL (9.4-12.4); Monocytes # (auto) 0.71 K/uL (0.11-0.59); Monocytes % (auto) 7.1 %; Neutrophils % (auto) 76.5 %; Platelet Count 192 K/uL (130-400); RDW Coefficient of Variation 13.4 % (11.5-14.5); RDW Standard Deviation 48.4 fL (36.4-46.3); Red Blood Count 2.76 M/uL (4.20-5.40); White Blood Count 10.06 K/ul (4.8-10.8)
[2023-06-20 07:39] LABS: BUN Creatinine Ratio 15.2 (10-20); Calcium 8.8 mg/dl (8.6-10.3); Creatinine Clr Calc Pharmacy 64.7 ml/min; Est GFR (African American) 89.8 ml/min; Est GFR (Non-African American) 77.5 ml/min; Magnesium 1.7 mg/dl (1.7-2.4); Potassium 4.4 mmol/L (3.5-5.1)
--- NOTE | 2023-06-20 07:45 | Orthopedic Progress Note ---
Date of Service June 20, 2023 Assessment & Plan (1) Closed intertrochanteric fracture of left hip: Plan: Postop day #1 left trochanteric femoral nail -Pain management as written -PT/OT toe-touch weightbearing left lower extremity -DVT prophylaxis: SCDs, chemoprophylaxis choice as per medicine. Okay to start anticoagulation 24 hours postop. -AM labs: Hemoglobin at 8.9 this morning from 10.5 yesterday and 12 on admission, acute blood loss anemia due to surgical loss and loss due to fracture versus dilutional. Patient is asymptomatic. Also with hyponatremia sodium 132 this morning. -Discharge planning: Plan on discharge when stable as per medicine. Possibly may need short rehab stay. PT/OT evals pending. Case management consult placed. Admission and Anticipated Discharge Date Admission Date: June 18, 2023 Subjective Postop day #1 left trochanteric femoral nail. Patient is having pain in her hip improved with. Pain medication however still with moderate pain with movement. She did have some anxiety earlier this morning improved with p.o. Ativan per nursing notes.. Due to some mild nausea after pain medication however this is resolved. No acute issues overnight. No other complaints. Denies chest pain, shortness of breath, vomiting/diarrhea, headaches or dizziness. Review of Systems Review of Systems: All systems reviewed & are unremarkable except as noted in Subjective Physical Exam Physical Exam: Left hip: Mild tenderness to left thigh. Edema to left thigh, compartments are compressible. Dressings are clean, dry, intact. Toes are mobile with good dorsiflexion. No calf tenderness. Distally neurovascular status and sensation is grossly intact. Results & Data Vital Signs (Past 12 Hours) Vital Signs Temp Pulse Pulse Resp BP BP Pulse Ox 06/20/23 07:02 36.9 C 88 16 117/68 93 06/20/23 03:52 36.8 C 79 18 110/70 92 06/19/23 23:33 102/62 06/19/23 23:00 37.1 C 85 18 97/50 L 93 06/19/23 20:05 O2 Del Method O2 Flow Rate 06/20/23 07:02 Nasal Cannula 2 06/20/23 03:52 Nasal Cannula 3 06/19/23 23:33 06/19/23 23:00 Nasal Cannula 3 06/19/23 20:05 Nasal Cannula 2 Laboratory Results Lab Results 06/18/23 06/18/23 06/18/23 Range/Units 16:00 20:30 21:45 WBC 19.17 H (4.8-10.8) K/ul RBC 3.84 L (4.20-5.40) M/uL Hgb 12.7 (12.0-16.0) g/dl Hct 37.5 (37.0-47.0) % MCV 97.7 (80.0-100.0) fL MCH 33.1 (25.0-34.0) pg MCHC 33.9 (32.0-36.0) g/dL RDW Std Deviation 47.7 H (36.4-46.3) fL RDW Coeff of Cindy 13.2 (11.5-14.5) % Plt Count 292 (130-400) K/uL MPV 10.6 (9.4-12.4) fL Immature Gran % (Auto) 0.8 % Neut % (Auto) 88.7 % Lymph % (Auto) 6.7 % Sully % (Auto) 3.5 % Eos % (Auto) 0.1 % Baso % (Auto) 0.2 % Neut # (Auto) 17.01 H (1.40-6.50) K/uL Lymph # (Auto) 1.28 (1.20-3.40) K/uL Sully # (Auto) 0.67 H (0.11-0.59) K/uL Eos # (Auto) 0.02 (0.00-0.50) K/uL Baso # (Auto) 0.03 (0.00-0.20) K/uL Immature Gran # (Auto) 0.16 (0.01-0.20) K/uL PT 10.3 (9.0-12.0) Seconds INR 0.9 (0.9-1.1) APTT 26.4 (21.0-31.0) Seconds PTT Ratio 0.9 Sodium 136 (136-145) mmol/L Potassium 4.3 (3.5-5.1) mmol/L Chloride 102 (98-107) mmol/L Carbon Dioxide 27 (21-32) mmol/L Anion Gap 7 (3-11) BUN 17 (6-23) mg/dl Creatinine 0.94 (0.6-1.2) mg/dl Est Cr Clr Drug Dosing 54.4 ml/min Est GFR ( Amer) 72.8 ml/min Est GFR (Non-Af Amer) 62.8 ml/min BUN/Creatinine Ratio 18.1 (10-20) Glucose 218 H (70-99(Fasting)) mg/dl POC Glucose 180 H (70-99) mg/dl Estimat Average Glucose mg/dl Hemoglobin A1c (4.5-5.6) % Calcium 9.9 (8.6-10.3) mg/dl Phosphorus (2.5-4.9) mg/dl Magnesium (1.7-2.4) mg/dl Total Bilirubin 0.4 (0.2-1.0) mg/dl AST 16 (13-39) U/L ALT 15 (7-52) U/L Alkaline Phosphatase 67 (34-104) U/L Troponin I High Sens 4.5 (0-14) pg/ml Total Protein 7.2 (6.0-8.3) gm/dl Albumin 4.4 (3.4-5.0) gm/dl Globulin 2.8 (2.5-4.0) gm/dl Albumin/Globulin Ratio 1.6 (0.9-2) Lipase 6 L (11-82) U/L Blood Type AB Positive Antibody Screen NEGATIVE 06/18/23 06/19/23 06/19/23 Range/Units 23:24 06:16 08:23 WBC 8.56 D (4.8-10.8) K/ul RBC 3.20 L (4.20-5.40) M/uL Hgb 10.5 L (12.0-16.0) g/dl Hct 31.3 L (37.0-47.0) % MCV 97.8 (80.0-100.0) fL MCH 32.8 (25.0-34.0) pg MCHC 33.5 (32.0-36.0) g/dL RDW Std Deviation 47.6 H (36.4-46.3) fL RDW Coeff of Cindy 13.3 (11.5-14.5) % Plt Count 221 (130-400) K/uL MPV 10.6 (9.4-12.4) fL Immature Gran % (Auto) 0.2 % Neut % (Auto) 65.6 % Lymph % (Auto) 27.0 % Sully % (Auto) 6.5 % Eos % (Auto) 0.5 % Baso % (Auto) 0.2 % Neut # (Auto) 5.61 (1.40-6.50) K/uL Lymph # (Auto) 2.31 (1.20-3.40) K/uL Sully # (Auto) 0.56 (0.11-0.59) K/uL Eos # (Auto) 0.04 (0.00-0.50) K/uL Baso # (Auto) 0.02 (0.00-0.20) K/uL Immature Gran # (Auto) 0.02 (0.01-0.20) K/uL PT (9.0-12.0) Seconds INR (0.9-1.1) APTT (21.0-31.0) Seconds PTT Ratio Sodium 137 (136-145) mmol/L Potassium 4.1 (3.5-5.1) mmol/L Chloride 104 (98-107) mmol/L Carbon Dioxide 26 (21-32) mmol/L Anion Gap 7 (3-11) BUN 13 (6-23) mg/dl Creatinine 0.78 (0.6-1.2) mg/dl Est Cr Clr Drug Dosing 65.5 ml/min Est GFR ( Amer) 91.2 ml/min Est GFR (Non-Af Amer) 78.7 ml/min BUN/Creatinine Ratio 16.7 (10-20) Glucose 92 (70-99(Fasting)) mg/dl POC Glucose 262 H 93 123 H (70-99) mg/dl Estimat Average Glucose 194 mg/dl Hemoglobin A1c 8.4 H (4.5-5.6) % Calcium 9.6 (8.6-10.3) mg/dl Phosphorus (2.5-4.9) mg/dl Magnesium (1.7-2.4) mg/dl Total Bilirubin (0.2-1.0) mg/dl AST (13-39) U/L ALT (7-52) U/L Alkaline Phosphatase (34-104) U/L Troponin I High Sens (0-14) pg/ml Total Protein (6.0-8.3) gm/dl Albumin (3.4-5.0) gm/dl Globulin (2.5-4.0) gm/dl Albumin/Globulin Ratio (0.9-2) Lipase (11-82) U/L Blood Type Antibody Screen 06/19/23 06/19/23 06/19/23 Range/Units 12:23 15:46 16:39 WBC (4.8-10.8) K/ul RBC (4.20-5.40) M/uL Hgb (12.0-16.0) g/dl Hct (37.0-47.0) % MCV (80.0-100.0) fL MCH (25.0-34.0) pg MCHC (32.0-36.0) g/dL RDW Std Deviation (36.4-46.3) fL RDW Coeff of Cindy (11.5-14.5) % Plt Count (130-400) K/uL MPV (9.4-12.4) fL Immature Gran % (Auto) % Neut % (Auto) % Lymph % (Auto) % Sully % (Auto) % Eos % (Auto) % Baso % (Auto) % Neut # (Auto) (1.40-6.50) K/uL Lymph # (Auto) (1.20-3.40) K/uL Sully # (Auto) (0.11-0.59) K/uL Eos # (Auto) (0.00-0.50) K/uL Baso # (Auto) (0.00-0.20) K/uL Immature Gran # (Auto) (0.01-0.20) K/uL PT (9.0-12.0) Seconds INR (0.9-1.1) APTT (21.0-31.0) Seconds PTT Ratio Sodium (136-145) mmol/L Potassium (3.5-5.1) mmol/L Chloride (98-107) mmol/L Carbon Dioxide (21-32) mmol/L Anion Gap (3-11) BUN (6-23) mg/dl Creatinine (0.6-1.2) mg/dl Est Cr Clr Drug Dosing ml/min Est GFR ( Amer) ml/min Est GFR (Non-Af Amer) ml/min BUN/Creatinine Ratio (10-20) Glucose (70-99(Fasting)) mg/dl POC Glucose 155 H 247 H 292 H (70-99) mg/dl Estimat Average Glucose mg/dl Hemoglobin A1c (4.5-5.6) % Calcium (8.6-10.3) mg/dl Phosphorus (2.5-4.9) mg/dl Magnesium (1.7-2.4) mg/dl Total Bilirubin (0.2-1.0) mg/dl AST (13-39) U/L ALT (7-52) U/L Alkaline Phosphatase (34-104) U/L Troponin I High Sens (0-14) pg/ml Total Protein (6.0-8.3) gm/dl Albumin (3.4-5.0) gm/dl Globulin (2.5-4.0) gm/dl Albumin/Globulin Ratio (0.9-2) Lipase (11-82) U/L Blood Type Antibody Screen 06/19/23 06/20/23 Range/Units 20:45 06:44 WBC 10.06 (4.8-10.8) K/ul RBC 2.76 L (4.20-5.40) M/uL Hgb 8.9 L (12.0-16.0) g/dl Hct 27.1 L (37.0-47.0) % MCV 98.2 (80.0-100.0) fL MCH 32.2 (25.0-34.0) pg MCHC 32.8 (32.0-36.0) g/dL RDW Std Deviation 48.4 H (36.4-46.3) fL RDW Coeff of Cindy 13.4 (11.5-14.5) % Plt Count 192 (130-400) K/uL MPV 10.7 (9.4-12.4) fL Immature Gran % (Auto) 0.4 % Neut % (Auto) 76.5 % Lymph % (Auto) 15.8 % Sully % (Auto) 7.1 % Eos % (Auto) 0.1 % Baso % (Auto) 0.1 % Neut # (Auto) 7.70 H (1.40-6.50) K/uL Lymph # (Auto) 1.59 (1.20-3.40) K/uL Sully # (Auto) 0.71 H (0.11-0.59) K/uL Eos # (Auto) 0.01 (0.00-0.50) K/uL Baso # (Auto) 0.01 (0.00-0.20) K/uL Immature Gran # (Auto) 0.04 (0.01-0.20) K/uL PT (9.0-12.0) Seconds INR (0.9-1.1) APTT (21.0-31.0) Seconds PTT Ratio Sodium 132 L (136-145) mmol/L Potassium 4.4 (3.5-5.1) mmol/L Chloride 100 (98-107) mmol/L Carbon Dioxide 26 (21-32) mmol/L Anion Gap 6 (3-11) BUN 12 (6-23) mg/dl Creatinine 0.79 (0.6-1.2) mg/dl Est Cr Clr Drug Dosing 64.7 ml/min Est GFR ( Amer) 89.8 ml/min Est GFR (Non-Af Amer) 77.5 ml/min BUN/Creatinine Ratio 15.2 (10-20) Glucose 136 H (70-99(Fasting)) mg/dl POC Glucose 167 H (70-99) mg/dl Estimat Average Glucose mg/dl Hemoglobin A1c (4.5-5.6) % Calcium 8.8 (8.6-10.3) mg/dl Phosphorus 3.0 (2.5-4.9) mg/dl Magnesium 1.7 (1.7-2.4) mg/dl Total Bilirubin (0.2-1.0) mg/dl AST (13-39) U/L ALT (7-52) U/L Alkaline Phosphatase (34-104) U/L Troponin I High Sens (0-14) pg/ml Total Protein (6.0-8.3) gm/dl Albumin (3.4-5.0) gm/dl Globulin (2.5-4.0) gm/dl Albumin/Globulin Ratio (0.9-2) Lipase (11-82) U/L Blood Type Antibody Screen Diagnostic Findings LEFT HIP 2 VIEWS CLINICAL HISTORY: Postoperative examination. FINDINGS: AP and crosstable lateral portable views of the left hip are compared to study dated 06/18/2023. The skeletal structures are osteopenic. Intertrochanteric and intramedullary nails have been placed transfixing an intertrochanteric fracture. Near anatomic alignment is restored. A single cortical lag screw transfixes the distal end of the intramedullary nail. There is persistent medial displacement of the lesser trochanter. Skin clips, subcutaneous gas, and soft tissue edema overlying the left hip are expected postsurgical changes. There is chronic posttraumatic deformity of the left pubic ring. IMPRESSION: Expected postoperative findings status post open reduction and internal fixation of the left proximal femur. Near-anatomic alignment has been restored (1) Closed intertrochanteric fracture of left hip Encounter type: initial encounter Fracture alignment: displaced Qualified Code(s): S72.142A - Displaced intertrochanteric fracture of left femur, initial encounter for closed fracture
[2023-06-20] MEDS: LANTUS PER UNIT CHARGE SQ SCH ×2 (08:38→21:45)
[2023-06-20] MEDS: INSULIN ASPART PER UNIT CHARGE SC SCH ×4 (08:38→21:46)
[2023-06-20] MEDS: lisinopril 40 MG TAB PO SCH ×2 (08:41→21:19)
[2023-06-20] MEDS: MULTIVITAMIN TAB PO SCH (08:41)
[2023-06-20] MEDS: ACETAMINOPHEN 325 MG TAB PO PRN ×2 (09:55→21:18)
[2023-06-20] MEDS ORDERED: SIMETHICONE 40 MG/0.6 ML 30ML PO PRN (12:17)
[2023-06-20] MEDS: MAGNESIUM HYDROXIDE SUSP 30 ML UDC PO PRN ×2 (12:47→21:45)
[2023-06-20] MEDS ORDERED: SIMETHICONE 80 MG CHEW PO PRN (12:48)
--- NOTE | 2023-06-20 15:09 | Hospitalist Progress Note ---
Date of Service June 20, 2023 Assessment & Plan (1) Closed intertrochanteric fracture of left hip: Plan 67-year-old female with PMH of insulin-dependent DM II, HTN, stroke, hypothyroidism, depression, tobacco use presented to ER with complaint of mechanical fall and left hip pain. She is being managed for the following: Mechanical Fall: Closed intertrochanteric fracture of left hip: Left femur x-ray: Acute comminuted displaced intertrochanteric fracture of the left femur. Left knee x-ray: No acute fracture within the left knee. CXR: No acute infiltrate Left hip short cephalomedullary nailing for intertrochanteric femur fracture on 06/19/23 by Mark Almonte M.D. Tylenol, oxycodone, morphine as needed pain. Nausea control. Bowel regimen. Ortho on board, appreciate recs. Starting dvt px 06/20 per ortho recs. PT/OT w/ ortho recs Acute blood loss anemia: likely 2/2 operative loss complicated by dilutional component 2/2 ivf use. monitro HnH. Laceration of scalp: CT head with no acute finding. Posterior scalp laceration repaired with keshawn in ED. Leukocytosis: Admitting leukocytosis of 19 K, patient with no fever chills, CXR without infiltrate, UA negative for UTI. Likely reactive secondary to acute fracture. WBC trended down to normal. Insulin-requiring or dependent type II diabetes mellitus: Patient uses insulin. A1c of 8.4 this admission. clinical document improvement educator consult. Pt already in d/w w/ her PCP regarding weekly injection and under the skin sensor - she states she will f/u her PCP for any changes in her diabetic meds. Other chronic medical conditions: Continue with/resume home meds as and when able. Hypertensioncontinue home amlodipine/lisinopril with hold parameters History of strokeresume aspirin Hypothyroidismcontinue home levothyroxine Tobacco use disordersmokes 8 to 10 cigarettes a day, has tried to cut back. Denies nicotine patch. DVT prophylaxis: hep sc. Full code Admission and Anticipated Discharge Date Admission Date: June 18, 2023 Subjective Patient was seen and examined at bedside. Patient was sitting up in chair, on 2 L oxygen via nasal cannula, reports pain at operative side, patient asked to request for as needed pain medication. Patient reports being gassy/has normal bowel, maintain bowel regimen, simethicone added. Patient denies any headache or chills or nausea or vomiting. Physical Exam Physical Exam: GENERAL: Alert and oriented. NAD, on 2L O2 via NC. HEENT: No pallor, no icterus. Pupils equal, round and reactive to light. Oral mucosa moist. +posterior scalp laceration repaired with keshawn NECK: No JVD, no neck masses. HEART: S1 and S2 heard. Regular rate and rhythm. No murmur, no gallop. RESPIRATORY SYSTEM: Normal AP diameter. No accessory muscle use. No wheezing, no crackles. ABDOMEN: Soft, bowel sounds present, nontender, no distention. CENTRAL NERVOUS SYSTEM: No facial droop. Speech is clear. Obeys simple commands. Moves extremities. EXTREMITIES: No edema, no erythema seen. Left hip with clean dressing without soakage. Distal neurovascular status WNL. Results & Data Results & Data Vital Signs (Past 12 Hours) Vital Signs Temp Pulse Pulse Pulse Resp BP BP 06/20/23 14:42 36.6 C 85 16 105/64 06/20/23 11:32 36.7 C 86 18 107/62 06/20/23 07:20 06/20/23 07:02 36.9 C 88 16 117/68 06/20/23 03:52 36.8 C 79 18 110/70 Pulse Ox O2 Del Method O2 Flow Rate 06/20/23 14:42 96 Nasal Cannula 2 06/20/23 11:32 92 Nasal Cannula 2 06/20/23 07:20 Nasal Cannula 2 06/20/23 07:02 93 Nasal Cannula 2 06/20/23 03:52 92 Nasal Cannula 3 (1) Closed intertrochanteric fracture of left hip Encounter type: initial encounter Fracture alignment: displaced Qualified Code(s): S72.142A - Displaced intertrochanteric fracture of left femur, initial encounter for closed fracture
[2023-06-20] MEDS: oxyCODONE HCL IR 5 MG TAB (IMMEDIATE RELEASE) PO PRN (21:17)
[2023-06-20] MEDS: amLODIPine BESYLATE 5 MG TAB PO SCH (21:19)
[2023-06-20] MEDS: CHOLECALCIFEROL 400 UNITS 10 MCG TAB PO SCH (21:19)
[2023-06-20] MEDS: PRAVASTATIN SOD 40 MG TAB PO SCH (21:20)
[2023-06-20] MEDS: DOCUSATE SODIUM/SENNA 50/8.6MG TAB PO SCH (21:20)
[2023-06-20] MEDS: HEPARIN SOD 5,000 UNIT/0.5 ML VIAL SQ SCH (21:51)
[2023-06-21] MEDS: oxyCODONE HCL IR 5 MG TAB (IMMEDIATE RELEASE) PO PRN ×4 (01:36→22:53)
[2023-06-21] MEDS ORDERED: oxyCODONE HCL IR 5 MG TAB (IMMEDIATE RELEASE) PO STA (04:34)
[2023-06-21] MEDS: LEVOTHYROXINE SODIUM 112 MCG TABLET PO SCH (06:20)
[2023-06-21 07:13] LABS: Hematocrit (blood only) 25.9 % (37.0-47.0); Hemoglobin 8.6 g/dl (12.0-16.0); Mean Corpuscular Hemoglobin 32.5 pg (25.0-34.0); Mean Corpuscular Hgb Conc 33.2 g/dL (32.0-36.0); Mean Corpuscular Volume 97.7 fL (80.0-100.0); Mean Platelet Volume 10.8 fL (9.4-12.4); Platelet Count 191 K/uL (130-400); RDW Coefficient of Variation 12.9 % (11.5-14.5); RDW Standard Deviation 46.7 fL (36.4-46.3); Red Blood Count 2.65 M/uL (4.20-5.40); White Blood Count 9.38 K/ul (4.8-10.8)
--- NOTE | 2023-06-21 07:24 | Orthopedic Progress Note ---
Date of Service June 21, 2023 Assessment & Plan (1) Closed intertrochanteric fracture of left hip: Plan: Postop day #2 left trochanteric femoral nail -Pain management as written -PT/OT toe-touch weightbearing left lower extremity -DVT prophylaxis: SCDs, chemoprophylaxis choice as per medicine. -AM labs: Hemoglobin stable at 8.6 this morning from 8.9 yesterday and 12 on admission, acute blood loss anemia due to surgical loss and loss due to fracture versus dilutional. Patient is asymptomatic. -Discharge planning: Plan on discharge when stable as per medicine. PT/OT recommending rehab. PT/OT Case management consult placed. Orthopedics will sign off at this time. Please call with any questions or concerns. Patient can follow-up with Dr. Almonte or his PA 10 to 14 days postoperatively. Patient can call [phone] for an appointment. Admission and Anticipated Discharge Date Admission Date: June 18, 2023 Subjective Patient is postop day 2 left trochanteric femoral nail. She is doing well this morning. Pain is better controlled than yesterday. No other complaints. Denies chest pain, short of breath, nausea/vomiting/diarrhea, headaches or dizziness. Review of Systems Review of Systems: All systems reviewed & are unremarkable except as noted in Subjective Physical Exam Physical Exam: Left hip: Mild tenderness to left thigh. Edema to left thigh, compartments are compressible. Dressings are clean, dry, intact. Toes are mobile with good dorsiflexion. No calf tenderness. Distally neurovascular status and sensation is grossly intact. Results & Data Vital Signs (Past 12 Hours) Vital Signs Temp Pulse Ox O2 Del Method O2 Del Method O2 Flow Rate O2 Flow Rate 06/21/23 05:00 93 Nasal Cannula 2 06/21/23 01:38 37.7 C H 06/20/23 21:00 Nasal Cannula 2 (1) Closed intertrochanteric fracture of left hip Encounter type: initial encounter Fracture alignment: displaced Qualified Code(s): S72.142A - Displaced intertrochanteric fracture of left femur, initial encounter for closed fracture
[2023-06-21 08:21] LABS: Calcium 8.6 mg/dl (8.6-10.3); Magnesium 1.9 mg/dl (1.7-2.4); Potassium 4.6 mmol/L (3.5-5.1)
[2023-06-21 08:27] LABS: BUN Creatinine Ratio 17.7 (10-20); Creatinine Clr Calc Pharmacy 64.7 ml/min; Est GFR (African American) 89.8 ml/min; Est GFR (Non-African American) 77.5 ml/min
[2023-06-21] MEDS: INSULIN ASPART PER UNIT CHARGE SC SCH ×4 (08:41→21:15)
[2023-06-21] MEDS: LANTUS PER UNIT CHARGE SQ SCH ×2 (08:54→21:14)
[2023-06-21] MEDS: HEPARIN SOD 5,000 UNIT/0.5 ML VIAL SQ SCH ×2 (08:56→22:30)
[2023-06-21] MEDS: ASPIRIN 81 MG ECTAB PO SCH (08:56)
[2023-06-21] MEDS: lisinopril 40 MG TAB PO SCH ×2 (08:56→21:15)
[2023-06-21] MEDS: MULTIVITAMIN TAB PO SCH (08:56)
--- NOTE | 2023-06-21 10:01 | XRay Report ---
SINGLE VIEW CHEST CLINICAL HISTORY: Fever. Recent surgery. FINDINGS: An AP, portable, upright chest radiograph is compared to study dated 06/18/2023. The cardio mediastinal silhouette is unremarkable. Chronic interstitial thickening is similar to previous. There is mild bibasilar scarring/atelectasis. The lungs and pleural spaces are otherwise clear. No pneumot horax is seen. The skeletal structures are osteopenic. There are chronic/healed right-sided rib fract ures. IMPRESSION: No active disease in the chest. ACT 112: Negative or not required by law. Electronically signed by: Mickey Belle M.D. 06/21/2023 10:00 AM
[2023-06-21 15:01] LABS: Appearance Urine Clear (Clear); Bacteria Urine Automated Negative (Negative); Bilirubin Urine Negative (Negative); Blood Urine Negative (Negative); Color Urine Yellow; Epithelial Cell Urine Auto >30 /lpf (0-5); Glucose Urine UA 2+ (Negative); Ketones Urine 2+ (Negative); Leukocyte Esterase Urine Trace (Negative); Nitrite Urine Negative (Negative); Protein Urine Negative (Negative); RBC Urine Automated 0-4 /hpf (0-4); Specific Gravity Urine 1.011 (1.000-1.030); Urobilinogen Urine Negative (Negative)
--- NOTE | 2023-06-21 15:11 | Hospitalist Progress Note ---
Date of Service June 21, 2023 Assessment & Plan (1) Closed intertrochanteric fracture of left hip: Plan 67-year-old female with PMH of insulin-dependent DM II, HTN, stroke, hypothyroidism, depression, tobacco use presented to ER with complaint of mechanical fall and left hip pain. She is being managed for the following: Mechanical Fall: Closed intertrochanteric fracture of left hip: Age-related osteoporosis with current pathological fracture, left femur Left femur x-ray: Acute comminuted displaced intertrochanteric fracture of the left femur. Left knee x-ray: No acute fracture within the left knee. CXR: No acute infiltrate Left hip short cephalomedullary nailing for intertrochanteric femur fracture on 06/19/23 by Mark Almonte M.D. Tylenol, oxycodone, morphine as needed pain. Nausea control. Bowel regimen. Ortho evaled, appreciate recs. c/w heparin while inpt, monitor HnH. To oral AC on DC, asp vs eliquis Px dose. PT/OT w/ ortho recs Acute blood loss anemia: likely 2/2 operative loss complicated by dilutional component 2/2 ivf use. monitro HnH. Pt not chest pain/dizziness/palpitation. Laceration of scalp: CT head with no acute finding. Posterior scalp laceration repaired with keshawn in ED. Leukocytosis: Admitting leukocytosis of 19 K, patient with no fever chills, CXR without infiltrate, UA negative for UTI. Likely reactive secondary to acute fracture. -----> resolved. Insulin-requiring or dependent type II diabetes mellitus: Patient uses insulin. A1c of 8.4 this admission. on awake counselor consult. Pt already in d/w w/ her PCP regarding weekly injection and under the skin sensor - she states she will f/u her PCP for any changes in her diabetic meds. Other chronic medical conditions: Continue with/resume home meds as and when able. Hypertensioncontinue home amlodipine/lisinopril with hold parameters History of strokeresume aspirin Hypothyroidismcontinue home levothyroxine Tobacco use disordersmokes 8 to 10 cigarettes a day, has tried to cut back. Denies nicotine patch. DVT prophylaxis: hep sc. Full code Admission and Anticipated Discharge Date Admission Date: June 18, 2023 Subjective Patient was seen and examined at bedside. Patient was sitting up in chair, on 2 L oxygen via nasal cannula, reports pain at operative side better controlled today. Moving bowels and tolerating diet; no increased cough/sputum from her baseline per pt. Patient denies any headache or chills or nausea or vomiting. last evening she felt hot; temp was elevated but no further temp elevation, WBC and procal are normal, continue to monitor off of atb. CXR w/ no acute finding, UA sent. Pt made aware and agreeable to be monitored off of atb. Physical Exam Physical Exam: GENERAL: Alert and oriented. NAD, on 2L O2 via NC. HEENT: No pallor, no icterus. Pupils equal, round and reactive to light. Oral mucosa moist. +posterior scalp laceration repaired with keshawn NECK: No JVD, no neck masses. HEART: S1 and S2 heard. Regular rate and rhythm. No murmur, no gallop. RESPIRATORY SYSTEM: Normal AP diameter. No accessory muscle use. No wheezing, no crackles. ABDOMEN: Soft, bowel sounds present, nontender, no distention. CENTRAL NERVOUS SYSTEM: No facial droop. Speech is clear. Obeys simple commands. Moves extremities. EXTREMITIES: No edema, no erythema seen. Left hip with clean dressing without soakage. Distal neurovascular status WNL. Results & Data Results & Data Vital Signs (Past 12 Hours) Vital Signs Temp Pulse Resp BP Pulse Ox Pulse Ox O2 Del Method 06/21/23 11:45 36.9 C 80 18 122/60 99 Nasal Cannula 06/21/23 09:48 Nasal Cannula 06/21/23 08:10 37.2 C 92 H 16 124/60 96 Nasal Cannula 06/21/23 05:00 93 O2 Del Method O2 Flow Rate O2 Flow Rate 06/21/23 11:45 2 06/21/23 09:48 2 06/21/23 08:10 2 06/21/23 05:00 Nasal Cannula 2 (1) Closed intertrochanteric fracture of left hip Encounter type: initial encounter Fracture alignment: displaced Qualified Code(s): S72.142A - Displaced intertrochanteric fracture of left femur, initial encounter for closed fracture
[2023-06-21] MEDS: DOCUSATE SODIUM/SENNA 50/8.6MG TAB PO SCH (21:15)
[2023-06-21] MEDS: CHOLECALCIFEROL 400 UNITS 10 MCG TAB PO SCH (21:15)
[2023-06-21] MEDS: PRAVASTATIN SOD 40 MG TAB PO SCH (21:15)
[2023-06-21] MEDS: amLODIPine BESYLATE 5 MG TAB PO SCH (21:16)
[2023-06-21] MEDS ORDERED: MELATONIN 3 MG TAB PO PRN (22:33)
[2023-06-21] MEDS ORDERED: LORazepam 0.5 MG TAB PO PRN (23:05)
[2023-06-22] MEDS: LEVOTHYROXINE SODIUM 112 MCG TABLET PO SCH (05:24)
[2023-06-22] MEDS: oxyCODONE HCL IR 5 MG TAB (IMMEDIATE RELEASE) PO PRN ×3 (05:42→16:04)
[2023-06-22 07:27] LABS: Basophils # (auto) 0.01 K/uL (0.00-0.20); Basophils % (auto) 0.1 %; Eosinophils # (auto) 0.12 K/uL (0.00-0.50); Eosinophils % (auto) 1.5 %; Hematocrit (blood only) 23.5 % (37.0-47.0); Hemoglobin 7.9 g/dl (12.0-16.0); Immature Granulocytes # (auto) 0.04 K/uL (0.01-0.20); Immature Granulocytes % (auto) 0.5 %; Lymphocytes # (auto) 1.25 K/uL (1.20-3.40); Mean Corpuscular Hemoglobin 32.5 pg (25.0-34.0); Mean Corpuscular Hgb Conc 33.6 g/dL (32.0-36.0); Mean Corpuscular Volume 96.7 fL (80.0-100.0); Mean Platelet Volume 10.3 fL (9.4-12.4); Monocytes # (auto) 0.53 K/uL (0.11-0.59); Monocytes % (auto) 6.8 %; Neutrophils # (auto) 5.87 K/uL (1.40-6.50); Neutrophils % (auto) 75.1 %; Platelet Count 191 K/uL (130-400); RDW Coefficient of Variation 12.3 % (11.5-14.5); RDW Standard Deviation 43.4 fL (36.4-46.3); Red Blood Count 2.43 M/uL (4.20-5.40); White Blood Count 7.82 K/ul (4.8-10.8)
[2023-06-22] MEDS: lisinopril 40 MG TAB PO SCH (07:55)
[2023-06-22] MEDS: MULTIVITAMIN TAB PO SCH (07:56)
[2023-06-22] MEDS: ASPIRIN 81 MG ECTAB PO SCH (07:56)
[2023-06-22] MEDS: HEPARIN SOD 5,000 UNIT/0.5 ML VIAL SQ SCH (07:56)
[2023-06-22 08:31] LABS: RBC Morphology Unremarkable
[2023-06-22] MEDS: LANTUS PER UNIT CHARGE SQ SCH (08:32)
[2023-06-22] MEDS: INSULIN ASPART PER UNIT CHARGE SC SCH ×2 (08:32→12:25)
[2023-06-22] MEDS: MAGNESIUM HYDROXIDE SUSP 30 ML UDC PO PRN (08:32)
[2023-06-22 09:15] LABS: BUN Creatinine Ratio 21.3 (10-20); Calcium 8.7 mg/dl (8.6-10.3); Creatinine Clr Calc Pharmacy 83.8 ml/min; Est GFR (African American) 108.7 ml/min; Est GFR (Non-African American) 93.8 ml/min; Potassium 4.9 mmol/L (3.5-5.1)
[2023-06-22] MEDS ORDERED: LANTUS PER UNIT CHARGE SQ ONE (12:00)
--- NOTE | 2023-06-22 13:11 | Discharge Summary ---
Date of Service June 22, 2023 Admission HPI Per Admitting Provider Patient is 67-year-old female with PMH insulin-dependent DM II, HTN, stroke, hypothyroidism, depression, tobacco use presented to ER with complaint of fall and left hip pain. Patient states she was cleaning her house today when she tripped over object causing her to fall onto left side and hitting posterior head. Patient reports laceration to posterior scalp with bleeding controlled upon arrival. Denies LOC. States was unable to get up and bear weight to left leg. History of right hip replacement in past. Denies other injury. Denies fever/chills, diaphoresis, N/V/D/C, GOINS, dizziness, syncope, vision changes, neck pain, CP, SOB, cough, sore throat, rhinorrhea, abdominal pain, paresthesias, extremity edema, rashes, urinary symptoms. Admission Exam Per Admitting Provider General: no acute distress, WDWN Head: normocephalic, +posterior scalp laceration repaired with keshawn Eyes: PERRL, EOM's intact, conjunctiva non-injected, anicteric ENT: normal inspection external ears, nose, mucous membranes moist Neck: supple, trachea midline Lungs: clear, no respiratory distress, no wheezing/rhonchi/rales CV: RRR, no murmur, no pretibial edema Abd: normal BS, soft, non-tender Ext: LLE: +shortened and externally rotated, +tenderness to palpation entire left hip and superior thigh, distal pulses palpable, sensation to light touch intact, No ROM attempted. Remaining extremities with normal appearance with ROM intact. Neuro: A&O x 3, no focal deficits noted, normal affect Skin: warm, dry Principal Diagnosis Intertrochanteric fracture of left femur Discharge Exam Constitutional WD/WN, vitals as above no acute distress Sitting up in the chair Respiratory normal respiratory effort, lungs clear to auscultation Cardiovascular Rate/Rhythm: regular rate and regular rhythm Vessels: normal peripheral pulses Extremities: no edema Gastrointestinal (Abdomen) Percussion/Palpation: abdomen soft; abdomen nontender Musculoskeletal S/p left hip surgery, + edema to left thigh, CSM checks intact LLE, dressing CDI Skin no rashes, warm and dry Neurologic no focal motor deficits Psychiatric A+Ox3, euthymic affect Discharge Data Allergies Allergy/AdvReac Type Severity Reaction Status Date / Time No Known Allergies Allergy Verified 01/02/22 21:14 Consultations 06/18/23 21:04 Consult Anesthesiology Routine Consult Orthopedic Surgery Routine Procedures Performed Operation Date: 06/19/23 07:30 Actual Procedures p Intramedullary Romie Femur(Left) - Mark Almonte M.D. Ordered Studies Laboratory Results WBC 7.82 K/ul (4.8-10.8) 06/22/23 07:09 RBC 2.43 M/uL (4.20-5.40) L 06/22/23 07:09 Hgb 7.9 g/dl (12.0-16.0) L 06/22/23 07:09 Hct 23.5 % (37.0-47.0) L 06/22/23 07:09 MCV 96.7 fL (80.0-100.0) 06/22/23 07:09 MCH 32.5 pg (25.0-34.0) 06/22/23 07:09 MCHC 33.6 g/dL (32.0-36.0) 06/22/23 07:09 RDW Std Deviation 43.4 fL (36.4-46.3) 06/22/23 07:09 RDW Coeff of Cindy 12.3 % (11.5-14.5) 06/22/23 07:09 Plt Count 191 K/uL (130-400) 06/22/23 07:09 MPV 10.3 fL (9.4-12.4) 06/22/23 07:09 Immature Gran % (Auto) 0.5 % 06/22/23 07:09 Neut % (Auto) 75.1 % 06/22/23 07:09 Lymph % (Auto) 16.0 % 06/22/23 07:09 Assumption % (Auto) 6.8 % 06/22/23 07:09 Eos % (Auto) 1.5 % 06/22/23 07:09 Baso % (Auto) 0.1 % 06/22/23 07:09 Neut # (Auto) 5.87 K/uL (1.40-6.50) 06/22/23 07:09 Lymph # (Auto) 1.25 K/uL (1.20-3.40) 06/22/23 07:09 Assumption # (Auto) 0.53 K/uL (0.11-0.59) 06/22/23 07:09 Eos # (Auto) 0.12 K/uL (0.00-0.50) 06/22/23 07:09 Baso # (Auto) 0.01 K/uL (0.00-0.20) 06/22/23 07:09 Immature Gran # (Auto) 0.04 K/uL (0.01-0.20) 06/22/23 07:09 RBC Morphology Unremarkable 06/22/23 07:09 PT 10.3 Seconds (9.0-12.0) 06/18/23 16:00 INR 0.9 (0.9-1.1) 06/18/23 16:00 APTT 26.4 Seconds (21.0-31.0) 06/18/23 16:00 PTT Ratio 0.9 06/18/23 16:00 Sodium 127 mmol/L (136-145) L 06/22/23 08:27 Potassium 4.9 mmol/L (3.5-5.1) 06/22/23 08:27 Chloride 95 mmol/L (98-107) L 06/22/23 08:27 Carbon Dioxide 26 mmol/L (21-32) 06/22/23 08:27 Anion Gap 6 (3-11) 06/22/23 08:27 BUN 13 mg/dl (6-23) 06/22/23 08:27 Creatinine 0.61 mg/dl (0.6-1.2) 06/22/23 08:27 Est Cr Clr Drug Dosing 83.8 ml/min 06/22/23 08:27 Est GFR ( Amer) 108.7 ml/min 06/22/23 08:27 Est GFR (Non-Af Amer) 93.8 ml/min 06/22/23 08:27 BUN/Creatinine Ratio 21.3 (10-20) H 06/22/23 08:27 Glucose 273 mg/dl (70-99(Fasting)) H 06/22/23 08:27 POC Glucose 305 mg/dl (70-99) H* 06/22/23 11:31 Estimat Average Glucose 194 mg/dl 06/19/23 06:16 Hemoglobin A1c 8.4 % (4.5-5.6) H 06/19/23 06:16 Calcium 8.7 mg/dl (8.6-10.3) 06/22/23 08:27 Phosphorus 3.0 mg/dl (2.5-4.9) 06/20/23 06:44 Magnesium 1.9 mg/dl (1.7-2.4) 06/21/23 06:33 Total Bilirubin 0.4 mg/dl (0.2-1.0) 06/18/23 16:00 AST 16 U/L (13-39) 06/18/23 16:00 ALT 15 U/L (7-52) 06/18/23 16:00 Alkaline Phosphatase 67 U/L (34-104) 06/18/23 16:00 Troponin I High Sens 4.5 pg/ml (0-14) 06/18/23 16:00 Total Protein 7.2 gm/dl (6.0-8.3) 06/18/23 16:00 Albumin 4.4 gm/dl (3.4-5.0) 06/18/23 16:00 Globulin 2.8 gm/dl (2.5-4.0) 06/18/23 16:00 Albumin/Globulin Ratio 1.6 (0.9-2) 06/18/23 16:00 Lipase 6 U/L (11-82) L 06/18/23 16:00 25-OH Vitamin D Total 47.8 ng/ml (30-100) 06/20/23 06:44 Procalcitonin 0.07 ng/ml (0-0.5) 06/21/23 10:00 Urine Color Yellow 06/21/23 14:15 Urine Appearance Clear (Clear) 06/21/23 14:15 Urine pH 6.0 (4.5-7.5) 06/21/23 14:15 Ur Specific Cl[place]son 1.011 (1.000-1.030) 06/21/23 14:15 Urine Protein Negative (Negative) 06/21/23 14:15 Urine Glucose (UA) 2+ (Negative) H 06/21/23 14:15 Urine Ketones 2+ (Negative) H 06/21/23 14:15 Urine Blood Negative (Negative) 06/21/23 14:15 Urine Nitrite Negative (Negative) 06/21/23 14:15 Urine Bilirubin Negative (Negative) 06/21/23 14:15 Urine Urobilinogen Negative (Negative) 06/21/23 14:15 Ur Leukocyte Esterase Trace (Negative) H 06/21/23 14:15 Urine WBC (Auto) 1-5 /hpf (0-5) 06/21/23 14:15 Urine RBC (Auto) 0-4 /hpf (0-4) 06/21/23 14:15 U Hyaline Cast (Auto) 1-5 /lpf (0-5) 06/21/23 14:15 U Epithel Cells (Auto) >30 /lpf (0-5) H 06/21/23 14:15 Urine Bacteria (Auto) Negative (Negative) 06/21/23 14:15 Hepatitis C Ab (EIA) NON-REACTIVE (NON-REACTIVE) 06/19/23 06:16 Blood Type AB Positive 06/18/23 21:45 Antibody Screen NEGATIVE 06/18/23 21:[address] 06/18/23 15:[address] DOSE: 1098.39 mGy.cm HISTORY: trauma TECHNIQUE: Multiaxial CT images of the cervical spine were performed and reformatted in the sagittal and coronal plane without the use of contrast. A dose lowering technique was utilized adhering to the principles of ALARA. COMPARISON: None. FINDINGS: No fractures. No subluxation. Prevertebral soft tissues and the C1-C2 interval are intact. No pneumothorax. IMPRESSION: No fractures within the cervical spine. ACT 112: Negative or not required by law. Electronically signed by: Yo Jean M.D. 06/18/2023 4:32 PM Femur X-Ray 06/18/23 15:51 XR femur LT 2V routine CLINICAL HISTORY: fall COMPARISON: CT of the abdomen and pelvis December 04, 2021. FINDINGS: There is an acute comminuted displaced intertrochanteric fracture of the left femur. Lesser trochanter is displaced. There is no distal left femoral fracture. Apparent depression of the lateral tibial plateau is likely artifactual or chronic. There is no left knee joint effusion. Old left pubic ring fractures are incidentally noted. IMPRESSION: 1. Acute comminuted displaced intertrochanteric fracture of the left femur. 2. Apparent depression of the lateral tibial plateau is likely chronic or artifactual given lack of a left knee joint effusion. If left knee pain, left knee radiographs could be obtained. ACT 112: Negative or not required by law. Electronically signed by: Sixto Hernandez M.D. 06/18/2023 4:[address] 06/18/23 15:[address] DOSE: HISTORY: trauma TECHNIQUE: Multiaxial CT images of the head were performed without the use of intravenous contrast. Automated exposure control was utilized for this study. A dose lowering technique was utilized adhering to the principles of ALARA. Comparison: Head CT 12/24/2021. Findings: The paranasal sinuses and mastoid air cells are clear. The calvarium and skull base are intact. There is no mass, hematoma, midline shift, acute infarct. White matter hypodensity is nonspecific but suggestive of microvascular ischemic change. The ventricles and sulci demonstrate mild age-related involutional changes. Impression: No acute intracranial abnormality. ACT 112: Negative or not required by law. Electronically signed by: Yo Jean M.D. 06/18/2023 4:29 PM Pelvis X-Ray 06/18/23 15:51 XR pelvis 1-2V routine CLINICAL HISTORY: fall COMPARISON: CT of the abdomen and pelvis December 24, 2021. FINDINGS: Visualized portions of the right hip arthroplasty are intact. There are old bilateral pubic ring fractures. Note is made of an acute comminuted dis placed intertrochanteric fracture of the left femur. No additional acute fractures are present. IMPRESSION: Acute comminuted displaced intertrochanteric fracture of the left femur. ACT 112: Negative or not required by law. Electronically signed by: Sixto Hernandez M.D. 06/18/2023 4:50 PM Knee X-Ray 06/18/23 17:42 XR knee LT 1 or 2V routine CLINICAL HISTORY: fall COMPARISON: Left femur radiographs performed earlier today. FINDINGS: Alignment of the left knee is anatomic. There is no acute fracture. The equivocal lateral tibial plateau fracture on radiographs performed earlier today was artifactual. There is no significant joint effusion. Chondrocalcinosis is noted. There are mild degenerative changes within the left knee. IMPRESSION: No acute fracture within the left knee. The possible lateral tibial plateau fracture on prior radiographs was artifactual. ACT 112: Negative or not required by law. Electronically signed by: Sixto Hernandez M.D. 06/18/2023 6:10 PM Hip X-Ray 06/19/23 12:30 LEFT HIP 2 VIEWS CLINICAL HISTORY: Postoperative examination. FINDINGS: AP and crosstable lateral portable views of the left hip are compared to study dated 06/18/2023. The skeletal structures are osteopenic. Intertrochanteric and intramedullary nails have been placed transfixing an intertrochanteric fracture. Near anatomic alignment is restored. A single cortical lag screw transfixes the distal end of the intramedullary nail. There is persistent medial displacement of the lesser trochanter. Skin clips, subcutaneous gas, and soft tissue edema overlying the left hip are expected postsurgical changes. There is chronic posttraumatic deformity of the left pubic ring. IMPRESSION: Expected postoperative findings status post open reduction and internal fixation of the left proximal femur. Near-anatomic alignment has been restored Electronically signed by: Mickey Belle M.D. 06/19/2023 1:57 PM Chest X-Ray 06/21/23 09:25 SINGLE VIEW CHEST CLINICAL HISTORY: Fever. Recent surgery. FINDINGS: An AP, portable, upright chest radiograph is compared to study dated 06/18/2023. The cardiomediastinal silhouette is unremarkable. Chronic interstitial thickening is similar to previous. There is mild bibasilar scarring/atelectasis. The lungs and pleural spaces are otherwise clear. No pneumothorax is seen. The skeletal structures are osteopenic. There are chronic/healed right-sided rib fractures. IMPRESSION: No active disease in the chest. ACT 112: Negative or not required by law. Electronically signed by: Mickey Belle M.D. 06/21/2023 10:00 AM Hospital Course (1) Closed intertrochanteric fracture of left hip: Plan 67-year-old female with PMH of insulin-dependent DM II, HTN, stroke, hypothyroidism, depression, tobacco use presented to ER with complaint of mechanical fall and left hip pain. : Mechanical Fall: Closed intertrochanteric fracture of left hip: Age-related osteoporosis with current pathological fracture, left femur: Left femur x-ray: Acute comminuted displaced intertrochanteric fracture of the left femur. Left knee x-ray: No acute fracture within the left knee. CXR: No acute infiltrate Left hip short cephalomedullary nailing for intertrochanteric femur fracture on 06/19/23 by Mark Almonte M.D. Pain control bowel regimen Activity wound care orders as per Ortho Eliquis 2.5 mg twice daily x 4 weeks for DVT prophylaxis Hyponatremia Na+ 136 --> 137 --> 132 --> 129 --> 127 on 06/22. Hyperglycemia also noted, Na+ corrected to 131. Patient also admits to drinking large amounts of water during hospitalization. Recommend starting 1.5 L fluid restriction and repeating BMP on 06/23 and 06/24 Postoperative acute blood loss anemia Preop Hgb 12.7 --> 7.9 06/22 No indication for transfusion Monitor CBC Laceration of scalp: CT head with no acute finding. Posterior scalp laceration repaired with keshawn in ED. Leukocytosis: Admitting leukocytosis of 19 K, patient with no fever chills, CXR without infiltrate, UA negative for UTI. Likely reactive secondary to acute fracture. -----> resolved. Insulin-requiring or dependent type II diabetes mellitus: HgbA1c 8.4 Lantus increased to 15 units twice daily, continue NovoLog sliding scale HTN BP controlled, continue amlodipine and lisinopril History of CVA Continue ASA and statin Hypothyroidism Continue with levothyroxine Total Time Total Time Spent Total Time Spent (In Minutes): 40 Discharge Plan Discharge Items Patient Disposition: Transfer Inpatient Rehab Fac Reason For Visit: Fall, left hip pain Discharge Diagnosis: Left hip intertrochanteric femur fracture Activity: Per Instructions section Non-emergency contact: Surgeon Call non-emergency contact if: your pain is not controlled, your temperature is above 101.5, your wound has increased redness and your wound has increased drainage Follow-up/Referrals: Estuardo Wagner MD [Primary Care Provider] - Mark Almonte M.D. [Physician] - Diet: Carb Consistent or DM2 and Low Sodium (2gm) Fluids: 1500ml (6 cups) Addtl Attending Provider Instructions: Patient presented after mechanical fall and left hip pain. Found to have intertrochanteric fracture of the left femur. S/p Left hip short cephalomedullary nailing for intertrochanteric femur fracture by Dr. Almonte on 06/19. See orthopedic discharge instructions as below. DVT prophylaxis -Eliquis 2.5 mg twice daily x 4 weeks Patient noted to have mild hyponatremia. Admits to drinking large amounts of water during hospitalization. 1.5 L fluid restriction put in place. Recommend repeat BMP on 06/23 and 06/24. Blood sugars elevated during hospitalization. Lantus increased to 15 units twice daily. Addtl Cold Roller Provider Instructions: Orthopedic Instructions Things to Watch Out For -Go to the Emergency Room if you have sudden onset of chest pain, shortness of breath, or uncontrollable pain. -Call the orthopedics clinic immediately if you have a sudden increase in the amount of wound drainage or the drainage becomes thick, yellow or green, or foul-smelling. -For routine questions regarding your hip surgery, call the orthopedics clinic at [phone] during regular business hours (8am-5pm). For urgent issues after regular business hours, you may call the clinic to be connected to the on-call physician. Dressings -Keep your dressings clean, dry, and in place for 4 days after surgery. After 4 days postoperatively, you may remove the dressing and cover the incisions with new clean dressings. Be sure to wash your hands thoroughly before touching your incisions. Apply a new dressing daily thereafter. -You may begin showering after your first dressing change (4 days after surgery). You may let the water run BRIEFLY over the incisions, but do not soak the incisions in the bathtub or pool for 2 weeks. You may also gently clean the incisions with mild soap and water; pat the incision dry after cleaning-do not rub the incisions. -You may use an antibiotic ointment (Bacitracin, Polysporin) if desired, but this is not necessary. Weight Bearing -You need to remain toe-touch weight bearing on your operative leg. You may rest the weight of your foot on the ground, but do not put any body weight through that leg. Use a walker for support and balance. Followup -You will need to follow-up with Dr. Almonte in orthopedic surgery clinic 10- 14 days after surgery. Please call [facility] at [phone] to make an appointment. Pending Studies at Discharge: No Stand-Alone Forms: My [facility] SpotRight Skilled Items Patient informed of condition?: Yes DNR: No Discharge Level of Care: Acute rehab Communicable Disease: No Discharge Prognosis: Stable Lines: None Urinary Catheter: No Medications and DC Order Prescriptions: New polyethylene glycol 3350 [Miralax] 17 gram Powder In Packet 17 g PO DAILY PRN (Reason: constipation) Qty: 14 0RF sennosides-docusate sodium [Senokot-S] 8.6-50 mg Tablet 2 tab PO HS Qty: 1 0RF oxycodone 5 mg Tablet 5 - 10 mg PO Q4H PRN (Reason: pain) Qty: 1 0RF Eliquis 2.5 mg tablet 2.5 mg PO BID 28 Days Qty: 56 0RF Continued multivitamin Tablet 1 tab PO DAILY amlodipine 2.5 mg tablet 2.5 mg PO PM lisinopril 40 mg tablet 40 mg PO BID levothyroxine [Euthyrox] 112 mcg tablet 112 mcg PO DAILYBB insulin aspart U-100 [Novolog FlexPen U-100 Insulin] 100 unit/mL (3 mL) Insulin Pen 0 sliding scale dose subcut TIDM MDD 25 unit Rx Instructions: PER PT "USES A SLIDING SCALE, DEPENDING ON BSG". acetaminophen [Tylenol Extra Strength] 500 mg Tablet 1,000 mg PO DIRECTED PRN (Reason: Pain) cholecalciferol (vitamin D3) [Vitamin D3] 10 mcg (400 unit) Tablet 10 mcg PO HS aspirin 81 mg Tablet,Delayed Release (Dr/Ec) 81 mg PO DAILY pravastatin 40 mg tablet 40 mg PO HS Changed insulin glargine [Basaglar KwikPen U-100 Insulin] 100 unit/mL (3 mL) insulin pen 15 unit SUBCUT BID Qty: 15 0RF Rx Instructions: PER PT "HAVE BEEN DIVIDING THE DOSE, 1/2 AM, 1/2 PM" TOTAL 15-20 UNITS PER DAY. Discharge Orders: Discharge Order (Routine); Ordered 06/22/23 Ordered By: Rachel Lopez/Other Patient Handouts: Managing Type 2 Diabetes Admission Data Admit Date/Time: 06/18/23 18:38 Attending Provider: Florentino Fletcher Admit Provider: Elizabeth Willams Primary Care Provider: Estuardo Wagner Other Providers: Elizabeth Willams; aJvier Naranjo; Mark Almonte; [facility] Other Interventions: Discharge Summary Assessment (RN) Last Done: 06/22/23 12:43 Supervising Physician Co-Signing Physician Notes Patient seen and examined as a follow-up of age related osteoporotic pathological fracture of left femur. Also noted to have hyponatremia likely secondary to excessive fluid intake, patient advised to maintain fluid restriction of 1.5 L a day/high solute diet/follow-up labs daily for next 2 [facility]. Stapled scalp laceration, keshawn can be taken out in 7 to 10 days. Patient with no further fever, infection work-up so far negative. I have seen and examined the patient and have discussed the case with the provider above. I agree with the assessment and plan as stated.
[2023-06-22] MEDS ORDERED: LANTUS PER UNIT CHARGE SQ SCH (21:00)
== END 2023-06-22 17:11 | DRG 481 ==
LOC: ED 15:37 → SUATTDRO 18:38 → 3W 18:38

== ENCOUNTER 2023-09-02 13:53 | Inpatient (IN) ==
--- NOTE | 2023-09-02 14:03 | ED Triage Note ---
Date of Service September 02, 2023 Provider in Triage Author: Troy Price History of Present Illness This patient was briefly evaluated while in triage. An abbreviated physical exam was performed. This patient is a 68-year-old Female who presents to the ED for evaluation of constipation. Patient reports that she has had some nausea as well. The patient reports having a hip fracture repair on 07/19/24. The patient admits that she has been taking too much oxycodone. She is about to run out of her medication, and is concerned that she is addicted to the medication. She currently denies any hip pain. Her next orthopedic follow-up is 09/15 with [facility]. The patient is also concerned about depression. Patient recently started Lexapro 3 weeks ago, prescribed by her family doctor. The patient reports that she has been evaluated here in the past for depression. She currently denies any suicidal or homicidal thoughts. Physical Exam CONSTITUTIONAL: Healthy and well nourished. HEENT: No scleral icterus or conjunctival injection/pallor. MUSCULOSKELETAL: No significant pain with logroll of the hips. INTEGUMENTARY: No rash or other significant dermatologic conditions noted. HEMATOLOGIC: No ecchymosis or petechiae. PSYCHIATRIC: Flat affect. NEUROLOGIC: No focal neurologic deficits noted. Initial orders for labs and / or imaging were placed and patient was placed in the waiting area until a bed is available. Please see further documentation for the full ED course.
[2023-09-02] MEDS ORDERED: ONDANSETRON INJ 2 MG/ML 2 ML VIAL IV STA ×2 (14:04→17:40)
[2023-09-02 14:53] LABS: Basophils # (auto) 0.01 K/uL (0.00-0.20); Basophils % (auto) 0.1 %; Eosinophils # (auto) 0.02 K/uL (0.00-0.50); Eosinophils % (auto) 0.2 %; Hematocrit (blood only) 33.4 % (37.0-47.0); Hemoglobin 11.1 g/dl (12.0-16.0); Immature Granulocytes # (auto) 0.05 K/uL (0.01-0.20); Immature Granulocytes % (auto) 0.4 %; Lymphocytes # (auto) 1.44 K/uL (1.20-3.40); Lymphocytes % (auto) 12.6 %; Mean Corpuscular Hemoglobin 30.2 pg (25.0-34.0); Mean Corpuscular Hgb Conc 33.2 g/dL (32.0-36.0); Mean Platelet Volume 10.3 fL (9.4-12.4); Monocytes # (auto) 0.57 K/uL (0.11-0.59); Neutrophils % (auto) 81.7 %; Platelet Count 277 K/uL (130-400); RDW Coefficient of Variation 12.6 % (11.5-14.5); Red Blood Count 3.67 M/uL (4.20-5.40); White Blood Count 11.39 K/ul (4.8-10.8)
[2023-09-02 15:13] LABS: Albumin Level 3.9 gm/dl (3.4-5.0); Bilirubin,Total 0.5 mg/dl (0.2-1.0); Calcium 9.4 mg/dl (8.6-10.3); Potassium 4.5 mmol/L (3.5-5.1)
[2023-09-02 15:19] LABS: Albumin Globulin Ratio 1.5 (0.9-2); BUN Creatinine Ratio 12.9 (10-20); Creatinine Clr Calc Pharmacy 78.1 ml/min; Est GFR (African American) 107.4 ml/min; Est GFR (Non-African American) 92.7 ml/min; Globulin 2.6 gm/dl (2.5-4.0); Total Protein 6.5 gm/dl (6.0-8.3)
--- NOTE | 2023-09-02 15:54 | Emergency Department Note ---
Impression & Plan Acute hyponatremia ADMIT ED Provider Note HPI: History obtained from patient. The patient is a 68-year-old female who presents emergency department with a chief complaint of anxiety and depression. Patient states that she had hip surgery several months ago and she has been abusing oxycodone at home. Patient states that she is also had issues with constipation because of this. Patient states this is caused issues with her relationship with her daughter who she currently lives with. She states that she has been having thoughts of "not wanting to be around anymore". Patient states that she has not had any physical symptoms aside from her constipation recently. She states she has not actually had much pain in her leg but does feel that she is getting more addicted to oxycodone. She states that she likes the way that it makes her feel. On arrival here to the ED the patient is otherwise hemodynamically stable and alert, she is in no acute distress on my initial assessment. ROS: - Per HPI Differential Diagnosis: Anxiety/depression in the setting of underlying major depressive disorder, opioid addiction/substance abuse, suicidal thoughts, amongst other potential pathologies. *Outpatient medications and allergy history reviewed. PE: General: Alert HEENT: Normocephalic, trachea midline Eyes: Extraocular eye movement is intact, no scleral erythema Pulmonary: Clear to auscultation bilaterally, no wheezing Cardio: Regular rate and rhythm GI: Abdomen is soft to palpation : No suprapubic tenderness MSK: No evidence of trauma or malformation of the extremities, no edema Skin: No evidence of rash Neuro: Alert, no focal deficits Psychiatric: Cooperative INDEPENDENT INTERPRETATIONS: environmental monitoring specialist: (As interpreted by myself): - An order was placed for continuous cardiac monitoring - Patient was noted to be in sinus rhythm with a rate of 75 Medical Decision Making: IV was established and lab work obtained, patient was placed on restorative rehab aide. Lab work shows a leukocytosis of 11.39, hemoglobin is stable at 11.1. Platelet count is normal, CMP shows hyponatremia 122 which is beyond the patient's baseline. She has had hyponatremia in the past but typically is in the high 120s. No evidence of acute kidney injury, no other critical findings noted on lab work. Will hold on any IV fluids at this time as the patient may require fluid restriction for hyponatremia. Patient states she has been drinking "a lot of water recently". Case management was consulted, I discussed the patient's case with Heena Chiu, patient was recommended for medical admission given hyponatremia. I discussed this with the patient and she is in agreement for medical admission with psychiatric consultation as she has been having passive thoughts of and feels increasingly depressed. Case was then discussed with the on-call midlevel provider for [facility], Bailey Maxwell PA-C, and the patient was placed for admission in stable condition. Consultants/Discussions held with other healthcare providers: -[facility] service, Dr. Ledesma Disposition discussion held by myself with: -Patient Diagnosis: 1. Hyponatremia, acute on chronic 2. Anxiety/depression, acute Disposition: Admission Christiano Watson, Emergency Medicine Past Med/Surg History Medical History Insulin-requiring or dependent type II diabetes mellitus Dyslipidemia Hypothyroidism Major depressive disorder, recurrent severe without psychotic features Tobacco use disorder HTN (hypertension) Diabetes mellitus Surgical History Hx of tonsillectomy History of Family History Brother Hypertension Social History Smoking Status: Former smoker Tobacco Type: Cigarettes Second Hand Exposure: No; Do You Dip or Chew Tobacco: No; Hx Alcohol Use: No Hx Substance Use: No Preferred Language: Djiboutian Communication Ability: Effective Framing Mechanic Required: No Beliefs That Will Affect Care: None marital status: / Current Living Situation: Family Current Living Situation Comment: living with daughter since hip fracture current occupational status: retired Other Information That Helps Us Care for You: No Feels Safe at Home: Yes Safety Concerns: Feels Safe At This Time Assistive Devices: Glasses and Walker Allergies Allergies Allergy/AdvReac Type Severity Reaction Status Date / Time No Known Allergies Allergy Verified 01/02/22 21:14 Home Meds Home Medications Medication Instructions Recorded Confirmed amlodipine 2.5 mg tablet 2.5 mg PO PM 11/22/21 09/02/23 insulin aspart U-100 100 unit/mL 0 sliding scale dose subcut TIDM 11/22/21 09/02/23 (3 mL) subcutaneous pen (Novolog FlexPen U-100 Insulin aspart) levothyroxine 112 mcg tablet 112 mcg PO DAILYBB 11/22/21 09/02/23 (Euthyrox) lisinopril 40 mg tablet 20 mg PO BID 11/22/21 09/02/23 multivitamin 1 tab PO DAILY 11/22/21 09/02/23 acetaminophen 500 mg tablet 1,000 mg PO DIRECTED PRN Pain 12/24/21 09/02/23 (Tylenol Extra Strength) pravastatin 40 mg tablet 40 mg PO HS 01/02/22 09/02/23 aspirin 81 mg tablet,delayed 81 mg PO DAILY 06/18/23 09/02/23 release cholecalciferol (vitamin D3) 10 10 mcg PO HS 06/18/23 09/02/23 mcg (400 unit) tablet (Vitamin D3) Milk of Magnesia See Rx Instructions .Route .COMPLEX 09/02/23 09/02/23 escitalopram oxalate 5 mg tablet 5 mg PO DAILY 09/02/23 09/02/23 insulin glargine 100 unit/mL (3 15 unit subcut HS 09/02/23 09/02/23 mL) subcutaneous pen (Basaglar KwikPen U-100 Insulin) Previous Rx's Medication Instructions Recorded oxycodone 5 mg tablet 5 - 10 mg (1 - 2 x 5 mg) PO Q4H 06/22/23 PRN pain #1 tab Results & Data (ED) Vital Signs Vital Signs - 24 hr 09/02/23 13:58 09/02/23 14:48 09/02/23 14:50 Temperature 36.8 C Temperature Source Temporal Artery Scan Pulse Rate 77 72 Pulse Rate [Apical] 70 Pulse Rhythm Regular Pulse Rhythm [Apical] Regular Pulse Strength Normal Pulse Strength [Apical] Normal Respiratory Rate 20 18 Respiratory Effort / Characteristics Non-Labored Spontaneous Non-Labored Spontaneous Respiratory Depth Normal Normal Respiratory Pattern Regular Regular Blood Pressure 156/87 H Blood Pressure [Left Arm] 144/77 H Blood Pressure Mean 110 Blood Pressure Mean [Left Arm] 99 Blood Pressure Position Sitting Pulse Oximetry 95 Oxygen Delivery Method Room Air Room Air Sepsis Recent Fever Within 48 Hours No Sepsis New/Unexplained Change in Mental Status N/A Sepsis Action Taken by Nursing No Action Required Laboratory Data 09/02/23 14:34 09/02/23 18:59 Lab Results 09/02/23 09/02/23 09/02/23 Range/Units 14:34 14:35 15:28 WBC 11.39 H (4.8-10.8) K/ul RBC 3.67 L (4.20-5.40) M/uL Hgb 11.1 L (12.0-16.0) g/dl Hct 33.4 L (37.0-47.0) % MCV 91.0 (80.0-100.0) fL MCH 30.2 (25.0-34.0) pg MCHC 33.2 (32.0-36.0) g/dL RDW Std Deviation 42.0 (36.4-46.3) fL RDW Coeff of Cindy 12.6 (11.5-14.5) % Plt Count 277 (130-400) K/uL MPV 10.3 (9.4-12.4) fL Immature Gran % (Auto) 0.4 % Neut % (Auto) 81.7 % Lymph % (Auto) 12.6 % Bucks % (Auto) 5.0 % Eos % (Auto) 0.2 % Baso % (Auto) 0.1 % Neut # (Auto) 9.30 H (1.40-6.50) K/uL Lymph # (Auto) 1.44 (1.20-3.40) K/uL Bucks # (Auto) 0.57 (0.11-0.59) K/uL Eos # (Auto) 0.02 (0.00-0.50) K/uL Baso # (Auto) 0.01 (0.00-0.20) K/uL Immature Gran # (Auto) 0.05 (0.01-0.20) K/uL Sodium 122 L (136-145) mmol/L Potassium 4.5 (3.5-5.1) mmol/L Chloride 89 L (98-107) mmol/L Carbon Dioxide 26 (21-32) mmol/L Anion Gap 7 (3-11) BUN 8 (6-23) mg/dl Creatinine 0.62 (0.6-1.2) mg/dl Est Cr Clr Drug Dosing 78.1 ml/min Est GFR ( Amer) 107.4 ml/min Est GFR (Non-Af Amer) 92.7 ml/min BUN/Creatinine Ratio 12.9 (10-20) Glucose 151 H (70-99(Fasting)) mg/dl Osmolality 257 L (280-300) mOsm/kg Calcium 9.4 (8.6-10.3) mg/dl Total Bilirubin 0.5 (0.2-1.0) mg/dl AST 14 (13-39) U/L ALT 11 (7-52) U/L Alkaline Phosphatase 82 (34-104) U/L Total Protein 6.5 (6.0-8.3) gm/dl Albumin 3.9 (3.4-5.0) gm/dl Globulin 2.6 (2.5-4.0) gm/dl Albumin/Globulin Ratio 1.5 (0.9-2) TSH 0.401 (0.300-4.500) uIu/ml Urine Color Yellow Urine Appearance Clear (Clear) Urine pH 7.5 (4.5-7.5) Ur Specific [place] 1.003 (1.000-1.030) Urine Protein Negative (Negative) Urine Glucose (UA) Negative (Negative) Urine Ketones Trace H (Negative) Urine Blood Negative (Negative) Urine Nitrite Negative (Negative) Urine Bilirubin Negative (Negative) Urine Urobilinogen Negative (Negative) Ur Leukocyte Esterase 1+ H (Negative) Urine WBC (Auto) 1-5 (0-5) /hpf Urine RBC (Auto) 0-4 (0-4) /hpf U Hyaline Cast (Auto) 0 (0-5) /lpf U Epithel Cells (Auto) 0-5 (0-5) /lpf Urine Bacteria (Auto) Negative (Negative) Urine Osmolality 78 L (500-800) mOsm/kg Urine Opiates Screen Neg (Neg) Ur Methadone, Qual Neg (Neg) Acetaminophen < 3 L (10-30) ug/ml Urine Barbiturates Neg (Neg) Ur Phencyclidine (PCP) Neg (Neg) U Amphetamin/Meth Scrn Neg (Neg) MDMA (Ecstasy) Screen Neg (Neg) U Benzodiazepines Scrn Neg (Neg) Ur Cocaine Metabolite Neg (Neg) U Marijuana (THC) Screen Neg (Neg) Ethyl Alcohol mg/dL < 10.0 (<10.0) mg/dl Administered Medications Discontinued Medications Famotidine 20 mg/ Syringe 5 mls @ 2.5 mls/min IV NOW STA Stop: 09/02/23 17:38 Last Admin: 09/02/23 18:02 Dose: 2.5 mls/min Documented By: ANA Ondansetron HCl (Ondansetron Inj 2 Mg/Ml 2 Ml Vial) 4 mg IV NOW STA Stop: 09/02/23 14:05 Last Admin: 09/02/23 14:46 Dose: 4 mg Documented By: ANA Ondansetron HCl (Ondansetron Inj 2 Mg/Ml 2 Ml Vial) 4 mg IV NOW STA Stop: 09/02/23 17:41 Last Admin: 09/02/23 17:59 Dose: 4 mg Documented By: ANA Discharge Plan Visit Data Chief Complaint: Detox Request Stated Complaint: HIP PAIN ED Provider: Christiano Watson Discharge Problem: Acute hyponatremia
[2023-09-02 16:05] LABS: Appearance Urine Clear (Clear); Bilirubin Urine Negative (Negative); Blood Urine Negative (Negative); Color Urine Yellow; Glucose Urine UA Negative (Negative); Ketones Urine Trace (Negative); Leukocyte Esterase Urine 1+ (Negative); Nitrite Urine Negative (Negative); Protein Urine Negative (Negative); Specific Gravity Urine 1.003 (1.000-1.030); Urobilinogen Urine Negative (Negative); pH Urine 7.5 (4.5-7.5)
[2023-09-02 16:10] LABS: Thyroid Stimulating Hormone 0.401 uIu/ml (0.300-4.500)
[2023-09-02 16:19] LABS: RBC Urine Automated 0-4 /hpf (0-4)
[2023-09-02 16:20] LABS: Bacteria Urine Automated Negative (Negative); Cast Urine Automated 0 /lpf (0-5); Epithelial Cell Urine Auto 0-5 /lpf (0-5)
[2023-09-02 17:16] LABS: Amphetamines+Metham, Urine Neg (Neg); Barbiturates, Urine Neg (Neg); Benzodiazepine, Urine Neg (Neg); Cocaine, Urine Neg (Neg); MDMA (Ecstacy), Urine Neg (Neg); Marijuana, Urine Neg (Neg); Methadone, Urine Neg (Neg); Opiate, Urine Neg (Neg); Phencyclidine, Urine Neg (Neg)
--- NOTE | 2023-09-02 17:22 | History & Physical Report ---
Date of Service September 02, 2023 Assessment & Plan (1) Chronic hyponatremia: (2) Nausea and vomiting: (3) Insulin-requiring or dependent type II diabetes mellitus: (4) HTN (hypertension): (5) Dyslipidemia: (6) Major depression, recurrent, chronic: Plan This is a 68-year-old female who has a significant past medical history of insulin-dependent T2DM, HTN, HLD, history of CVA, hypothyroidism, depression and tobacco use who presents to ED secondary to feeling depressed. Acute on chronic hyponatremia Nausea and vomiting Admit to PCU secondary to hyponatremia Once stabilizes can downgraded to medical obtain serum osm, urine osm and urine na FR to 1500ml/hr likely tea/toast phenomena as well as newly started escitalopram; very poor intake, 10 pound weight loss in 2 months and today admits to drinking significant amount of water, 1 gallon subsequently followed by nausea and vomiting repeat bmp now and q4h consult nephro Major Depressive disorder with recurrent episode Resumed escitalopram 5 mg daily 3 weeks ago No SI/HI suicide precautions, safe tray for now Will hold a.m. dose of escitalopram and defer to Psych to for alternative agent given hyponatremia She has been on for 3 weeks so will defer to psych regarding if pt requires a taper off given minimal dose/duration Insulin requiring type II DM Lantus/NovoLog per protocol Unknown A1c, obtain in a.m. HTN Chronic, stable Continue amlodipine, lisinopril Hyperlipidemia Chronic, stable Continue pravastatin DVT prophylaxis: Lovenox Dispo: Admit to PCU, once medically stable recommend admission to psychiatry Full code PCP: Luz Heath, [facility] Pt was seen and examined in collaboration with Dr. Ledesma, please see addendum A total of 76 minutes was spent coordinating, documenting, and providing care for this patient excluding time spent in the performance of separately billed services. This included personally viewing all current laboratories and imaging studies, medication reconciliation, outpatient chart review, and discussion with specialists. It was determined that the patient has a [facility] primary care provider after admission was complete. Patient will transfer hospitalist services to [facility] on 09/03/2023 at 0700. History of Present Illness Chief Complaint: Depressed. Primary Care Provider: Malena Lorenz This is a 68-year-old female who has a significant past medical history of insulin-dependent T2DM, HTN, HLD, history of CVA, hypothyroidism, depression and tobacco use who presents to ED secondary to feeling depressed. Of significance patient was last hospitalized and discharged on June, after experiencing mechanical fall and a closed left intertrochanteric fracture. She underwent left hip CMN on 06/19/[address] Almonte. Her hospital course was complicated by hyponatremia with a sodium of 127. It was felt this was secondary to excessive fluid intake and her fluids were restricted. She was then discharged to rehab where she had done well and then discharged to her daughters. She has been staying with her daughter since and is alone most of the time. She has history of depression in the past and previously was treated with Lexapro and Wellbutrin and had done well. Approximately 3 weeks ago she establish care with a [facility] family medicine provider who prescribed her escitalopram. She has been on this 3 weeks and knows it takes time to notice improvement. She constantly feels depressed, helpless, down, poor intake and states that she has been abusing her oxycodone that was prescribed to her after her surgery. She does not overuse the oxycodone but tends to take it 1-2 times a day to try to mask her depression symptoms. She denies any active suicidal or homicidal ideations. She does have previous history of mental health admission. She presented to ED due to significant depression hoping to undergo psychiatric help. In ED patient remained hemodynamically stable but unfortunately her sodium was as low as 122. She states this morning she drink a significant amount of water because she was constipated and knew that this would help her go. She states that she drank over a gallon. She then subsequently started to become nauseous and had multiple episodes of vomiting. She did have 1 episode of diarrhea. Over the last 4 to 6 weeks she has had significant decline in intake. She admits to a 25 pound weight loss. She denies any alcohol use or abuse. She denies any known sick contacts, fever, chills, sweats, lightheadedness, dizziness, chest pain, shortness breath, cough, URI symptoms, hematemesis, melena or hematochezia. Currently she is complaining of epigastric discomfort and significant nausea. As far as her left hip fracture she feels she is doing very well with this and has no acute issues at this time. Allergies Allergy/AdvReac Type Severity Reaction Status Date / Time No Known Allergies Allergy Verified 01/02/22 21:14 Home Medications Medication Instructions Recorded Confirmed Type amlodipine 2.5 mg tablet 2.5 mg PO PM 11/22/21 09/02/23 History insulin aspart U-100 100 unit/mL 0 sliding scale dose subcut TIDM 11/22/21 09/02/23 History (3 mL) subcutaneous pen (Novolog FlexPen U-100 Insulin aspart) levothyroxine 112 mcg tablet 112 mcg PO DAILYBB 11/22/21 09/02/23 History (Euthyrox) lisinopril 40 mg tablet 20 mg PO BID 11/22/21 09/02/23 History multivitamin 1 tab PO DAILY 11/22/21 09/02/23 History acetaminophen 500 mg tablet 1,000 mg PO DIRECTED PRN Pain 12/24/21 09/02/23 History (Tylenol Extra Strength) pravastatin 40 mg tablet 40 mg PO HS 01/02/22 09/02/23 History aspirin 81 mg tablet,delayed 81 mg PO DAILY 06/18/23 09/02/23 History release cholecalciferol (vitamin D3) 10 10 mcg PO HS 06/18/23 09/02/23 History mcg (400 unit) tablet (Vitamin D3) oxycodone 5 mg tablet 5 - 10 mg (1 - 2 x 5 mg) PO Q4H 06/22/23 09/02/23 Rx PRN pain #1 tab Milk of Magnesia See Rx Instructions .Route .COMPLEX 09/02/23 09/02/23 History escitalopram oxalate 5 mg tablet 5 mg PO DAILY 09/02/23 09/02/23 History insulin glargine 100 unit/mL (3 15 unit subcut HS 09/02/23 09/02/23 History mL) subcutaneous pen (Basaglar KwikPen U-100 Insulin) Past Med/Surg History Medical History Chronic hyponatremia Insulin-requiring or dependent type II diabetes mellitus Dyslipidemia Hypothyroidism Major depressive disorder, recurrent severe without psychotic features Tobacco use disorder HTN (hypertension) Diabetes mellitus Surgical History Hx of tonsillectomy History of Family History Brother Hypertension Social History Smoking Status: Former smoker Tobacco Type: Cigarettes Second Hand Exposure: No; Do You Dip or Chew Tobacco: No; Hx Alcohol Use: No Hx Substance Use: No Preferred Language: Divehi Communication Ability: Effective Biofuels Production Technician Required: No Beliefs That Will Affect Care: None marital status: / Current Living Situation: Family Current Living Situation Comment: living with daughter since hip fracture current occupational status: retired Other Information That Helps Us Care for You: No Feels Safe at Home: Yes Safety Concerns: Feels Safe At This Time Assistive Devices: Walker Review of Systems Review of Systems: All systems reviewed & are unremarkable except as noted in HPI & below Physical Exam Physical Exam: Constitutional: WD/WN, flat affected, F vitals, as above, NAD, sitting up in bed, pleasant, conversing easily Head: Normocephalic, Atraumatic Eyes: PERRL, conjunctivae normal, anicteric sclerae ENMT: external ear and nose normal, oropharynx normal Neck: trachea midline, no thyromegaly normal visual inspection Respiratory: normal respiratory effort, lungs clear to auscultation, no wheeze, rales, rhonchi. Normal insp/exp effort, no accessory muscle use Cardiovascular: RRR, no murmur, no edema Vessels: no JVD or carotid bruit Chest: normal inspection of chest Abdomen: normal bowel sounds, soft, tender in epigastrum, no hepatosplenomegaly Musculoskeletal: no cyanosis or clubbing, extremities motor strength 5/5 Skin: no rashes, warm and dry normal turgor Neurologic: PERRL, EOMI, accommodation nl, no face palsy, no dysarthria CN's II-XI intact bilaterally and moves all extremities Psychiatric: A+Ox3, euthymic affect Lymphatic: no cervical or axillary lymphadenopathy : deferred Results & Data Results & Data Vital Signs (Past 12 Hours) Vital Signs Temp Pulse Pulse Resp BP BP Pulse Ox 09/02/23 14:50 70 18 144/77 H 09/02/23 14:48 72 09/02/23 13:58 36.8 C 77 20 156/87 H 95 O2 Del Method 09/02/23 14:50 Room Air 09/02/23 14:48 09/02/23 13:58 Room Air Medications Administered Medication List Discontinued Medications Ondansetron HCl (Ondansetron Inj 2 Mg/Ml 2 Ml Vial) 4 mg IV NOW STA Stop: 09/02/23 14:05 Last Admin: 09/02/23 14:46 Dose: 4 mg Documented By: ANA COVID-19 Results Results COVID-19 Adm Lab Results: RBC 3.42 M/uL (4.20-5.40) L 09/03/23 WBC 7.60 K/ul (4.8-10.8) 09/03/23 Hgb 10.3 g/dl (12.0-16.0) L 09/03/23 Hct 30.6 % (37.0-47.0) L 09/03/23 Plt Count 278 K/uL (130-400) 09/03/23 Neutrophils (%) (Auto) 81.7 % 09/02/23 Lymphocytes (%) (Auto) 12.6 % 09/02/23 Monocytes # (Auto) 0.57 K/uL (0.11-0.59) 09/02/23 Eosinophils # (Auto) 0.02 K/uL (0.00-0.50) 09/02/23 Immature Granulocyte % (Auto) 0.4 % 09/02/23 Neutrophils # (Auto) 9.30 K/uL (1.40-6.50) H 09/02/23 Lymphocytes # (Auto) 1.44 K/uL (1.20-3.40) 09/02/23 Monocytes # (Auto) 0.57 K/uL (0.11-0.59) 09/02/23 Eosinophils # (Auto) 0.02 K/uL (0.00-0.50) 09/02/23 Basophils # (Auto) 0.01 K/uL (0.00-0.20) 09/02/23 Immature Granulocyte # (Auto) 0.05 K/uL (0.01-0.20) 4 Na 133 mmol/L (136-145) L 09/03/23 K 4.0 mmol/L (3.5-5.1) 09/03/23 Cl 103 mmol/L (98-107) 09/03/23 CO2 24 mmol/L (21-32) 09/03/23 Anion Gap 6 (3-11) 09/03/23 BUN 6 mg/dl (6-23) 09/03/23 Creatinine 0.82 mg/dl (0.6-1.2) 09/03/23 BUN/Creatinine Ratio 7.3 (10-20) L 09/03/23 Glucose Level 205 mg/dl (70-99(Fasting)) H 09/03/23 Ca 8.7 mg/dl (8.6-10.3) 09/03/23 Total Bilirubin 0.5 mg/dl (0.2-1.0) 09/02/23 AST/SGOT 14 U/L (13-39) 09/02/23 ALT/SGPT 11 U/L (7-52) 09/02/23 Alkaline Phosphatase 82 U/L (34-104) 09/02/23 Total Protein 6.5 gm/dl (6.0-8.3) 09/02/23 Albumin 3.9 gm/dl (3.4-5.0) 09/02/23 Globulin 2.6 gm/dl (2.5-4.0) 09/02/23 Albumin/Globulin Ratio 1.5 (0.9-2) 09/02/23 Ferritin 71.2 ng/ml (8-388) 09/03/23 Code Status & VTE Plan Code Status FULL CODE Supervising Physician Co-Signing Physician Notes Pt seen and examined by myself, Elaine Ledesma MD on the day of service. Care was coordinated with Bailey Quevedo PA-C. Pt is a 68yoF with PMHx significant for MDD requiring prior inpatient hospitalization, DMII, HTN, HLD, history of CVA, hypothyroidism brought in for concerning worsening depression and was found to be hyponatremic. Pt states that she has been 'abusing' oxycodone at home cause she was depressed and was having noted constipation. States she read online that increasing water intake can help with constipation so she had increased her water intake (states over a gallon of water) before presentation. WBC 11K, Hgb 11.1 Na 122 UA trace leukocyte esterase, TSH wnl On exam, flat affect, RRR, breath sounds clear bilaterally, some mild diffuse abdominal tenderness, no swelling in lower extremities Hyponatremia- per pt, had rapid excessive water consumption before arrival. Further hyponatremia workup with urine sodium and osm, fluid restrict 1500mls, consider transitioning off of lexapro which can be contributory, will defer to psychiatry for this. Avoid overcorrection, q4 BMP checks. Nephrology consult as well. Appreciate recs. MDD- previous admissions with psychiatry here, psych consult placed. Appreciate recs. Rule out an organic cause/correlation- Vit D, iron studies, B12, folate. Suicide precautions. Holding home oxycodone which pt reports she has been "abusing", monitor for withdrawal. Anemia- noted during last visit, likely acute blood loss anemia post op at that time. Currently back up to 11.1. Anemia studies as above (iron panel, b12, folate) Leukocytosis- pt afebrile, UA noting trace leukocyte esterase, denies urinary symptoms. Continue to monitor WBC, if persistent elevation consider further infectious workup Otherwise as above.
[2023-09-02] MEDS ORDERED: FAMOTIDINE 20 MG in SYRINGE 3 ML IV STA (17:37)
[2023-09-02] MEDS ORDERED: SODIUM CHLORIDE 0.9% 1,000 ML IV SCH (18:15)
[2023-09-02] MEDS ORDERED: GLUCOSE 10 TAB/TUBE PO PRN (19:11)
[2023-09-02] MEDS ORDERED: POLYETHYLENE (MIRALAX) 17 GM PACK PO PRN (19:11)
[2023-09-02] MEDS ORDERED: GLUCOSE 40% GEL 15 GM TUBE PO PRN (19:11)
[2023-09-02] MEDS ORDERED: CARBOHYDRATES FOR HYPOGLYCEMIA PO PRN (19:11)
[2023-09-02] MEDS ORDERED: ACETAMINOPHEN 325 MG TAB PO PRN (19:11)
[2023-09-02] MEDS ORDERED: GLUCAGON FOR INJ 1 MG VIAL SQ PRN (19:11)
[2023-09-02] MEDS ORDERED: DEXTROSE 50% 50 ML SYRINGE IV PRN (19:11)
[2023-09-02] MEDS ORDERED: ONDANSETRON INJ 2 MG/ML 2 ML VIAL IV PRN (19:11)
[2023-09-02 19:35] LABS: BUN Creatinine Ratio 10.9 (10-20); Calcium 8.9 mg/dl (8.6-10.3); Creatinine Clr Calc Pharmacy 75.7 ml/min; Est GFR (African American) 106.3 ml/min; Est GFR (Non-African American) 91.7 ml/min; Potassium 4.3 mmol/L (3.5-5.1)
[2023-09-02] MEDS: INSULIN ASPART PER UNIT CHARGE SC SCH (20:59)
[2023-09-02] MEDS ORDERED: LANTUS PER UNIT CHARGE SQ SCH (21:00)
[2023-09-02] MEDS: ENOXAPARIN INJ 40 MG/0.4 ML SYR SQ SCH (21:27)
[2023-09-02] MEDS ORDERED: ZOLPIDEM TARTRATE 5 MG TAB PO STA (21:39)
[2023-09-02] MEDS ORDERED: PROMETHAZINE HCL 12.5 MG in SODIUM CHLORIDE 0.9% 50 ML IV STA (21:44)
[2023-09-02] MEDS: CHOLECALCIFEROL 10 MCG (400 UNITS) TAB PO SCH (22:00)
[2023-09-02] MEDS: PRAVASTATIN SOD 40 MG TAB PO SCH (22:00)
[2023-09-02] MEDS: lisinopril 20 MG TAB PO SCH (22:00)
[2023-09-02] MEDS: amLODIPine BESYLATE 5 MG TAB PO SCH (22:01)
[2023-09-02 23:28] LABS: Calcium 8.6 mg/dl (8.6-10.3); Creatinine Clr Calc Pharmacy 72.3 ml/min; Est GFR (African American) 104.7 ml/min; Est GFR (Non-African American) 90.3 ml/min; Potassium 4.2 mmol/L (3.5-5.1)
[2023-09-03 02:21] LABS: Calcium 8.7 mg/dl (8.6-10.3); Creatinine Clr Calc Pharmacy 72.3 ml/min; Est GFR (African American) 104.7 ml/min; Est GFR (Non-African American) 90.3 ml/min; Potassium 4.2 mmol/L (3.5-5.1)
[2023-09-03] MEDS: LEVOTHYROXINE SODIUM 112 MCG TABLET PO SCH (06:04)
[2023-09-03 06:49] LABS: Hematocrit (blood only) 30.6 % (37.0-47.0); Hemoglobin 10.3 g/dl (12.0-16.0); Mean Corpuscular Hemoglobin 30.1 pg (25.0-34.0); Mean Corpuscular Hgb Conc 33.7 g/dL (32.0-36.0); Mean Corpuscular Volume 89.5 fL (80.0-100.0); Mean Platelet Volume 10.9 fL (9.4-12.4); Platelet Count 278 K/uL (130-400); RDW Coefficient of Variation 12.9 % (11.5-14.5); RDW Standard Deviation 42.1 fL (36.4-46.3); Red Blood Count 3.42 M/uL (4.20-5.40)
--- NOTE | 2023-09-03 07:00 | Hospitalist Progress Note ---
Date of Service September 03, 2023 Assessment & Plan (1) Chronic hyponatremia: Plan: Acute on chronic hyponatremia secondary to Nausea and vomiting over correction with need of IVF low serum osm, urine osm 78 and urine na 19 newly started escitalopram; very poor intake, 10 pound weight loss in 2 months and today admits to drinking significant amount of water, polydipsic chronic hyponatremia (2) Insulin-requiring or dependent type II diabetes mellitus: Plan: Insulin requiring type II DM Lantus/NovoLog significant and out of control on 09/03/23 adjusted insulin 7.9% a1c (3) HTN (hypertension): Plan: HTN Chronic, stable Continue amlodipine, lisinopril (4) Dyslipidemia: Plan: Hyperlipidemia Chronic, stable Continue pravastatin (5) Major depression, recurrent, chronic: Plan: Major Depressive disorder with recurrent episode Resumed escitalopram 5 mg daily 3 weeks ago No SI/HI psychiatric eval may consider inpatient transfer (6) Iron deficiency: Plan: iron deficiency anemia is noted , will order venofer Plan DVT prophylaxis: Lovenox Admission and Anticipated Discharge Date Admission Date: September 02, 2023 Subjective pt states she is profoundly depressed but without an active plan to kill herself or harm herself is interested in voluntary inpt treatment if appropriate Physical Exam Physical Exam: awake alert and appropriate cardiac exam is regular lungs are clear Results & Data Results & Data Vital Signs (Past 12 Hours) Vital Signs Temp Pulse Pulse Resp BP Pulse Ox Pulse Ox 09/03/23 03:40 98.2 F 69 18 113/61 94 09/03/23 03:00 98.8 F 71 20 124/66 92 09/02/23 23:10 98.2 F 74 20 133/59 L 95 09/02/23 23:00 78 09/02/23 19:11 94 09/02/23 19:11 74 09/02/23 19:11 98.4 F 20 149/70 H 90 O2 Del Method O2 Del Method 09/03/23 03:40 Room Air 09/03/23 03:00 Room Air 09/02/23 23:10 Room Air 09/02/23 23:00 09/02/23 19:11 Room Air 09/02/23 19:11 09/02/23 19:11 Room Air Laboratory Results Reviewed CBC reviewed chemistry reviewed glucose and [id number] glucose reviewed osmolality PG Care Time/CCT Total # of Minutes Spent Total Time Spent with Patient: Total time spent is greater than 50% in coordination of care (as documented) at patient's floor/unit and/or counseling patient: Coding Level of Care Code 70383 SUB INP/OBS CARE 350MIN Diagnoses Chronic hyponatremia E87.1 Insulin-requiring or dependent type II diabetes mellitus E11.9; Z79.4 HTN (hypertension) I10 Dyslipidemia E78.5 Major depression, recurrent, chronic F33.9 Iron deficiency E61.1
[2023-09-03 07:13] LABS: BUN Creatinine Ratio 7.4 (10-20); Creatinine Clr Calc Pharmacy 71.2 ml/min; Est GFR (African American) 104.2 ml/min; Est GFR (Non-African American) 89.9 ml/min; Potassium 4.4 mmol/L (3.5-5.1)
[2023-09-03 07:19] LABS: Ferritin 71.2 ng/ml (8-388)
[2023-09-03 07:25] LABS: Folate (Folic Acid),Ser orPlas > 22.30 ng/ml (>5.38)
[2023-09-03 07:26] LABS: Vitamin B12 1306 pg/ml (180-914)
[2023-09-03 07:43] LABS: Estimated Average Glucose 180 mg/dl; Hemoglobin A1C 7.9 % (4.5-5.6)
[2023-09-03] MEDS: INSULIN ASPART PER UNIT CHARGE SC SCH ×4 (08:10→20:31)
[2023-09-03] MEDS: ASPIRIN 81 MG ECTAB PO SCH (08:13)
[2023-09-03] MEDS: lisinopril 20 MG TAB PO SCH ×2 (08:13→20:23)
[2023-09-03] MEDS: MULTIVITAMIN TAB PO SCH (08:13)
[2023-09-03] MEDS: DEXTROSE 5% 1,000 ML IV SCH ×4 (08:20→23:26)
--- NOTE | 2023-09-03 08:28 | Nephrology Consultation ---
Date of Consultation September 03, 2023 Assessment & Plan (1) Chronic hyponatremia: polydipsic chronic hyponatremia correcting too fast from 122 yesterday 1430 to 133 at 0600 today; goal is to be at 128 at 1500 today started on D5W at 125 mL hourly at 0715 today will remove fluid limit for now sNa still 133 at 10AM repeat BMP>> will intensify IVF rate maintain eukalemia (currently acceptable) -needs strict I/o Reversing overcorrection may be challenging; will follow however Care coordinated w/ Dr Jean History of Present Illness Reason for Consultation: hyponatremia Requesting Physician: Dr Ledesma Attending Physician: Minesh Jean MD History of Present Illness 68 y/o F whom I'm asked to see for hyponatremia was admitted yesterday with hyponatremia (presenting sodium 122) after presenting with severe depression. PMH includes chronic hyponatremia, DM2 on insulin, hypothyroidism, deperession w/ previous inpatient care for same, stroke, HLD, tobacco abuse; recent hospitalization here late June for L trochanteric fracture after a fall s/p L hip nailing procedure. She had polydipsic hyponatremia during that admission, responsive to fluid restriction. Her depression has responded well in the past to lexapro and wellbutrin. About 3 wks ago she was started on escitalopram. Her symptoms have worsened however as she waits for that medication to take effect. Has been self medicating depressive sx w/ oxycodone. No SI/ HI. Denies EtOH or other substances apart from tobacco. Her hip has fortunately been healing well and denies significant pain issues w/ this. Her presenting sodium at 1500 yesterday was 122 in the setting of significant epigastric discomfort and N; she was at 133 at 0500 today. She reports having had severe constipation and drank large amounts of water yesterday trying to relieve it; then had several bouts of N/V afterward. She c/o ongoing mild abdominal pain; N has improved w/ meds, no sob, no edema, no further emesis; frequent constipation. no hip or other musculoskeletal pain. the rest of a 12 system review is otherwise negative. Allergies Allergy/AdvReac Type Severity Reaction Status Date / Time No Known Allergies Allergy Verified 01/02/22 21:14 Home Medications Medication Instructions Recorded Confirmed Type amlodipine 2.5 mg tablet 2.5 mg PO PM 11/22/21 09/02/23 History insulin aspart U-100 100 unit/mL 0 sliding scale dose subcut TIDM 11/22/21 09/02/23 History (3 mL) subcutaneous pen (Novolog FlexPen U-100 Insulin aspart) levothyroxine 112 mcg tablet 112 mcg PO DAILYBB 11/22/21 09/02/23 History (Euthyrox) lisinopril 40 mg tablet 20 mg PO BID 11/22/21 09/02/23 History multivitamin 1 tab PO DAILY 11/22/21 09/02/23 History acetaminophen 500 mg tablet 1,000 mg PO DIRECTED PRN Pain 12/24/21 09/02/23 History (Tylenol Extra Strength) pravastatin 40 mg tablet 40 mg PO HS 01/02/22 09/02/23 History aspirin 81 mg tablet,delayed 81 mg PO DAILY 06/18/23 09/02/23 History release cholecalciferol (vitamin D3) 10 10 mcg PO HS 06/18/23 09/02/23 History mcg (400 unit) tablet (Vitamin D3) oxycodone 5 mg tablet 5 - 10 mg (1 - 2 x 5 mg) PO Q4H 06/22/23 09/02/23 Rx PRN pain #1 tab Milk of Magnesia See Rx Instructions .Route .COMPLEX 09/02/23 09/02/23 History escitalopram oxalate 5 mg tablet 5 mg PO DAILY 09/02/23 09/02/23 History insulin glargine 100 unit/mL (3 15 unit subcut HS 09/02/23 09/02/23 History mL) subcutaneous pen (Basaglar KwikPen U-100 Insulin) Patient History Medical History Chronic hyponatremia Insulin-requiring or dependent type II diabetes mellitus Dyslipidemia Hypothyroidism Major depressive disorder, recurrent severe without psychotic features Tobacco use disorder HTN (hypertension) Diabetes mellitus Surgical History Hx of tonsillectomy History of Family History Brother Hypertension Social History Smoking Status: Former smoker Tobacco Type: Cigarettes Second Hand Exposure: No; Do You Dip or Chew Tobacco: No; Hx Alcohol Use: No Hx Substance Use: No Preferred Language: Haitian Communication Ability: Effective Colorman Required: No Beliefs That Will Affect Care: None marital status: / Current Living Situation: Family Current Living Situation Comment: living with daughter since hip fracture current occupational status: retired Other Information That Helps Us Care for You: No Feels Safe at Home: Yes Safety Concerns: Feels Safe At This Time Assistive Devices: Walker Review of Systems 2 Review of Systems: All systems reviewed & are unremarkable except as noted in HPI & below Physical Exam 2 Constitutional: well developed, average body habitus, + frail appearing and cooperative; no acute distress Eyes: EOM intact bilaterally ENMT: Ears: no external ear abnormality Nose: no external nose abnormality Mouth: + dry oral mucous membranes Neck: no nuchal rigidity Respiratory: normal respiratory effort Auscultation: + diminished lung sounds Cardiovascular: RRR, no murmur, no edema Gastrointestinal (Abdomen): Inspection/Auscultation: normal bowel sounds P ercussion/Palpation: + abdomen tender (to moderate palpation BLUQ) and abdomen soft Musculoskeletal: Extremities: strength 5/5 throughout Skin: no rashes, warm and dry Neurologic: wilson, fluent speech, no tremor Psychiatric: Orientation: alert and oriented x 3 Results & Data Vital Signs (Past 12 Hours) Vital Signs Temp Pulse Pulse Resp BP Pulse Ox O2 Del Method 09/03/23 03:40 36.8 C 69 18 113/61 94 Room Air 09/03/23 03:00 37.1 C 71 20 124/66 92 Room Air 09/02/23 23:10 36.8 C 74 20 133/59 L 95 Room Air 09/02/23 23:00 78 Laboratory Results 09/03/23 05:50 09/03/23 05:50 serum osm [address] urine sodium 19
[2023-09-03] MEDS ORDERED: ESCITALOPRAM OXALATE 10 MG TAB PO SCH (09:00)
--- OUTSIDE RECORDS SUMMARY | 2023-09-03 10:07 | External Medical Summary | Continuity of Care Document ---
Author Name Unknown Organization [address] [place] [phone] Encounter [facility] [id number] Date(s): 08/13/23 - 08/13/23 [facility] [address] [facility] [address] [facility] [address] [address] [phone] Encounter Diagnosis HTN (hypertension)(Discharge Diagnosis) - 08/13/23 DM2 (diabetes mellitus, type 2)(Discharge Diagnosis) - 08/13/23 Anxiety and depression(Discharge Diagnosis) - 08/13/23 Discharge Disposition: Home or Self Care Attending Physician: MD [facility], [place] Allergies, Adverse Reactions, Alerts No Known Allergies Assessment and Plan Extracted from: Title:Office Visit Note Author:DO Lorenz Audrey Date:08/13/23 1.Anxiety and depression Chronic condition Goal:_Management Data:_GAD7 9 PHQ9 score 18, hydroxyzine has not helped sleep or anxiety. Patient previously on lexapro and wellbutrin 300mg daily would like to resume. Biggest concern sleep at this time. No SI/HI. Has not contacted therapist yet. _ Plan: _Will start lexapro 5mg daily at this time, counselled patient we will not start multiple medications at once, f/u in 2 weeks. Should patient be tolerating medication well at 2 weeks can either increase lexapro or start wellbutrin. Patient likely to have increased mood in 1 month once she is more mobile. Current dependence and immobility large contribution of current mood Immunizations Given and Recorded Vaccine Date Status Refusal Reason zoster vaccine, inactivated 1 04/08/22 Recorded zoster vaccine, inactivated 2 12/23/20 Recorded SARS-CoV-2 (COVID-19) mRNA BNT-162b2 vax 3 07/17/21 Recorded SARS-CoV-2 (COVID-19) mRNA BNT-162b2 vax 4 09/26/20 Recorded SARS-CoV-2 (COVID-19) mRNA BNT-162b2 vax 5 09/05/20 Recorded influenza virus vaccine, H1N1 6 07/17/09 Recorded 1Result Comment: 2023-07-27: Historical information-source unspecified 2Result Comment: 2023-07-27: Historical information-source unspecified 3Result Comment: 2023-07-27: Historical information-source unspecified 4Result Comment: 2023-07-27: Historical information-source unspecified 5Result Comment: 2023-07-27: Historical information-source unspecified 6Result Comment: 2023-07-27: Historical information-source unspecified Medications amLODIPine 2.5 mg oral tablet Start: 07/27/23 11:21:00 EST, 1 tab, PO, Daily Start Date: 07/27/23 Status: Ordered Aspir 81 oral delayed release tablet Start: 07/27/23 11:21:00 EST, 1 tab, PO, Daily Start Date: 07/27/23 Status: Ordered Eliquis 2.5 mg oral tablet Start: 07/27/23 11:21:00 EST, 1 tab, PO, bid Start Date: 07/27/23 Status: Ordered hydrOXYzine hydrochloride 25 mg oral tablet Start: 07/27/23 11:45:00 EST, 1 tab, PO, tid, Disp# 42 tab, PRN: as needed for anxiety, Pharmacy: [facility] [address] Start Date: 07/27/23 Stop Date: 08/17/23 Status: Ordered insulin aspart 100 units/mL injectable solution Start: 08/13/23 14:15:00 EST, See Instructions, Disp# 15 mL, Refills: 1, Use sliding scale dosage based on BSG, Pharmacy: [facility] [address] Start Date: 08/13/23 Status: Ordered levothyroxine Start: 07/27/23 11:22:00 EST, 112, PO, Daily Start Date: 07/27/23 Status: Ordered Lexapro 5 mg oral tablet Start: 08/13/23 14:17:00 EST, 1 tab, PO, Daily, Disp# 30 tab, Pharmacy: [facility] [address] Start Date: 08/13/23 Stop Date: 09/12/23 Status: Ordered lisinopril 20 mg oral tablet Start: 08/13/23 14:13:00 EST, 20 mg =, PO, bid, Disp# 60 tab, Refills: 1, Pharmacy: [facility] [address] Start Date: 08/13/23 Stop Date: 10/12/23 Status: Ordered Macrobid 100 mg oral capsule Start: 07/27/23 12:54:00 EST, 1 cap, PO, bid, Disp# 10 cap, Pharmacy: [facility] Start Date: 07/27/23 Stop Date: 08/01/23 Status: Ordered multivitamin Start: 07/27/23 11:23:00 EST, 1 tab, PO, Daily Start Date: 07/27/23 Status: Ordered Mental Status 08/13/23 Barriers to Learning one year None evide nt Mandatory Health Literacy Documentation Yes Health Literacy Communication Barriers N ever Primary Language French Problem List Condition Confirmation Course Effective Dates Status H ealth Status Informant Anemia Confirmed Active History of TIA (transient ischemic attack) Confirmed Active Hypertension Confirmed Active Hypothyroidism Confirmed Active Anxiety and depression Confirmed Active Type 2 diabetes mellitus Confirmed Active Diagnosis Diagnosis Type Effective Dates Health Status Clinical Service Informant Anxiety and depression Discharge Diagnosis 08/13/23 HTN (hypertension) Discharge Diagnosis 08/13/23 Non-Specified DM2 (diabetes mellitus, type 2) Discharge Diagnosis 08/13/23 Non-Specified Vital Signs Most recent to oldest [Reference Range]: 1 Patient Weight 62.2 kg (08/13/23 1:49 PM) Heart Rate 66 bpm (08/13/23 1:49 PM) Respiratory Rate 12 br/min (08/13/23 1:49 PM) Blood Pressure 110/78mmHg (08/13/23 1:49 PM) Cuff Pulse Pressure 32 mmHg (08/13/23 1:49 PM) Social History Social History Type Response Smoking Status Former Smoker, quit within 31 days - 1 yr Sex Female FCM Outpt Note * DO Lorenz Audrey: PERFORM DO Keene Allison B: MODIFY Event Display: FCM Outpt Note Authored Date: [id number] Chief Complaint 2-4 week F/U anxiety and nolen in medication patient states medication isnt working History of Present Illness 68yo Female here to discuss anxiety f/u. Last visit was started on prn hydroxyzine, was to consider SSRIs. Has trialed lexapro wellbutrin 300mgin the past 3 years ago, was on them for years, was doing better, then one day stopped taking them.. Was planning to restart therapy in [place] A1c at 8, improvement from 8.4 in june however still elevated Hydroxyzine not working, made her too sleepy. Has not helped with sleep Right now broken leg can't do anything. Hasn't reached out to therapy yet Diet: poor diet, no appetite, stomach often upset Sleep: not sleeping well, laying awake at night, gets 4-5 hour soft sleep per night. Tried melatonin, tylenol PM, had horrible dreams, thoughts keep her up. Exercise: PT allowing her to put weight on foot. Home: living with daughter out of her own home right now *very few interests right now Physical Exam Vitals & Measurements HR:66(Monitored) RR:12 BP:110/78 SpO2:96% WT:62.200kg(Dosing) WT:62.2kg PHQ2 Data(Data Documented on:08/13/2023 13:49) Emotional health assessment POSITIVE PHQ-9 Data(Data Documented on:08/13/2023 13:50) PHQ-9 Severity Score:18 Thoughts that you would be better off or of hurting yourself in some way?Not at All Depression Risk:Elevated General Anxiety Disorder Screening: MADALYN-7 Score:9 MADALYN-7 Problem Severity:Somewhat Difficult General: Well appearing age appropriate calm cooperative Heart: RRR, +S1 S2, no murmurs/rubs/gallops Lungs: CTA b/l, no wheezes/rales/rhonchi Assessment/Plan 1.Anxiety and depression Chronic condition Goal:_Management Data:_GAD7 9 PHQ9 score 18, hydroxyzine has not helped sleep or anxiety. Patient previously on lexapro and wellbutrin 300mg daily would like to resume. Biggest concern sleep at this time. No SI/HI.Has not contacted therapist yet. _ Plan: _Will start lexapro 5mg daily at this time, counselled patient we will not start multiple medications at once, f/u in 2 weeks. Should patient be tolerating medication well at 2 weeks can eitherincrease lexapro or start wellbutrin. Patient likely to have increased mood in 1 month once she is more mobile. Current dependence andimmobility large contribution of current mood Attestation Patient's case reviewed in detail with Dr. Lorenz, agree with detail of history and physical as documented above. Plan reviewed in detail with providing resident physician. Restart Lexapro. Follow up in 2 weeks, and suspect will need increase in Lexapro at that visit. Problem List/Past Medical History Ongoing Anemia Anxiety and depression History of TIA (transient ischemic attack) Hypertension Hypothyroidism Type 2 diabetes mellitus Medications amLODIPine(amLODIPine 2.5 mg oral tablet), 2.5 mg= 1 tab, PO, Daily apixaban(Eliquis 2.5 mg oral tablet), 2.5 mg= 1 tab, PO, bid aspirin(Aspir 81 oral delayed release tablet), 81 mg= 1 tab, PO, Daily escitalopram(Lexapro 5 mg oral tablet), 5 mg= 1 tab, PO, Daily hydrOXYzine(hydrOXYzine hydrochloride 25 mg oral tablet), 25 mg= 1 tab, PO, tid, PRN insulin aspart(insulin aspart 100 units/mL injectable solution), See Instructions, 1 refills levothyroxine, 112, PO, Daily lisinopril(lisinopril 20 mg oral tablet), 20 mg, PO, bid, 1 refills multivitamin, 1 tab, PO, Daily nitrofurantoin(Macrobid 100 mg oral capsule), 100 mg= 1 cap, PO, bid Allergies NKA Social History Smoking Status Former Smoker, quit within 31 days - 1 yr Immunizations Vaccine Date Status zoster vaccine, inactivated 04/08/2022 Recorded Comments : 2023-07-27: Historical information-source unspecified SARS-CoV-2 (COVID-19) mRNA BNT-162b2 vax 07/17/2021 Recorded Comments : 2023-07-27: Historical information-source unspecified zoster vaccine, inactivated 12/23/2020 Recorded Comments : 2023-07-27: Historical information-source unspecified SARS-CoV-2 (COVID-19) mRNA BNT-162b2 vax 09/26/2020 Recorded Comments : 2023-07-27: Historical information-source unspecified SARS-CoV-2 (COVID-19) mRNA BNT-162b2 vax 09/05/2020 Recorded Comments : 2023-07-27: Historical information-source unspecified influenza virus vaccine, H1N1 07/17/2009 Recorded Comments : 2023-07-27: Historical information-source unspecified Recommendations Health Maintenance Pending(in the next year) OverDue Adult Influenza Vaccine due01/29/23and every 1year Due Adult COVID-19 Vaccination due08/13/23Unknown Frequency Adult Social Determinants of Health Screening due08/13/23Unknown Frequency Adult Tdap/Td Vaccine due08/13/23Unknown Frequency Body Mass Index due08/13/23Unknown Frequency Breast Cancer Screening due08/13/23Unknown Frequency Colorectal Cancer Screening due08/13/23Unknown Frequency Diabetic Eye Exam due08/13/23Unknown Frequency Falls Plan of Care due08/13/23Unknown Frequency Hepatitis C Screening due08/13/23One-time only Medicare Annual Wellness Visit due08/13/23and every 1year Osteoporosis Screening due08/13/23One-time only Pneumococcal Vaccine Older Adults due08/13/23One-time only Due In Future Diabetes Management A1c not due until07/29/24and every 366day Satisfied(in the past 1 year) Satisfied Diabetes Management A1c on07/29/23.Satisfied by Contributor_system, [employer] Lipid Screening on07/29/23.Satisfied by Contributor_system, [email or web address] Electronic Signature on File Electronically Reviewed/Signed by: Malena Lorenz DO Author Signature Dt/Tm:08/13/2023 02:54 PM Resident Department of Family Medicine Electronically Reviewed/Signed by: Shani Keene DO Cosigner Signature Dt/Tm: 08/13/2023 03:08 PM Department of Family Medicine AD Patient Care team information Care Team Personnel Name: DO Stroud Sameer Position: Resident Member Role: Lifetime Relationship Address: Address: [address] [address] [place] Care Team Related Persons Name: RIC DICKENS Address: home [id number] [place] [phone]
--- OUTSIDE RECORDS SUMMARY | 2023-09-03 10:08 | External Medical Summary | Continuity of Care Document ---
Author Name Unknown Organization [facility] [address] Address [facility] [address] [place], [place] [id number] [facility] [id number] Date(s): 07/29/23 - 07/29/23 [facility] [address] [facility] RONI 1 [facility] [address] [facility] [address] [place], [place] [phone] Encounter Diagnosis Personal history of (healed) traumatic fracture(Final) - Type 2 diabetes mellitus without complications(Final) - Hypothyroidism, unspecified(Final) - Essential (primary) hypertension(Final) - Anemia, unspecified(Final) - Personal history of transient ischemic attack (TIA), and cerebral infarction without residual deficits(Final) - Anxiety disorder, unspecified(Final) - Discharge Disposition: Home or Self Care Attending Physician: MD Farley Dongsheng Referring Physician: MD Farley Dongsheng Allergies, Adverse Reactions, Alerts No Known Allergies Immunizations Given and Recorded Vaccine Date Status [...] tab, PRN: as needed for anxiety, Pharmacy: [id number] Start Date: 07/27/23 Stop Date: 08/17/23 Status: Ordered levothyroxine Start: 07/27/23 11:22:00 EST, 112, PO, Daily Start Date: 07/27/23 Status: Ordered lisinopril Start: 07/27/23 11:22:00 EST, 40 mg =, PO, bid Start Date: 07/27/23 Status: Ordered Macrobid 100 mg oral capsule Start: 07/27/23 12:54:00 EST, 1 cap, PO, bid, Disp# 10 cap, Pharmacy: [id number] Start Date: 07/27/23 Stop Date: 08/01/23 Status: Ordered multivitamin Start: 07/27/23 11:23:00 EST, 1 tab, PO, Daily Start Date: 07/27/23 Status: Ordered Problem List Condition Confirmation Course Effective Dates Status H ealth Status Informant Anemia Confirmed Active History of TIA (transient ischemic attack) Confirmed Active Hypertension Confirmed Active Hypothyroidism Confirmed Active Anxiety and depression Confirmed Active Type 2 diabetes mellitus Confirmed Active Results Laboratory List Name Date Complete Blood Count (CBC) 07/29/23 Comprehensive Metabolic Panel (COMP META B PANEL) 07/29/23 Hemoglobin A1C (HEMOGLOBIN, A1C) 3 Lipid Profile (LIPOPROTEINS) 07/29/23 Thyroid Stimulating Hormone (TSH) Most recent to oldest [Reference Range]: 1 eGFR CKD-EPI [>60 mL/min/1.73 m2] >90 mL /min/1.73 m2 1 (07/29/23 8:14 AM) Estimated Average Glucose 183 mg/dL 2 (07/29/23 8:14 AM) Non-HDL 88 mg/dL 3 (07/29/23 8:14 AM) MPV [9.0-12.2 fL] 9.9 fL 4 (07/29/23 8:14 AM) RDW [11.5-14.2 %] 13.5 % (07/29/23 8:14 AM) Anion Gap [5-14 mmol/L] 6 mmol/L (07/29/23 8:14 AM) Alb [3.5-5.0 g/dL] 4.1 g/dL (07/29/23 8:14 AM) Alk Phos [38-126 unit/L] 86 unit/L (07/29/23 8:14 AM) ALT [<35 unit/L] 16 unit/L (07/29/23 8:14 AM) AST [15-46 unit/L] 20 unit/L (07/29/23 8:14 AM) BUN [7-20 mg/dL] 14 mg/dL (07/29/23 8:14 AM) Ca [8.4-10.2 mg/dL] 9.1 mg/dL (07/29/23 8:14 AM) Chol/HDL 3 (07/29/23 8:14 AM) Chol [125-200 mg/dL] 139 mg/dL (07/29/23 8:14 AM) Cl- [96-107 mmol/L] 109 mmol/L *HI* (07/29/23 8:14 AM) HCO3 [22-30 mmol/L] 26 mmol/L (07/29/23 8:14 AM) Cret [0.60-1.00 mg/dL] 0.66 mg/dL (07/29/23 8:14 AM) HbA1c [4.0-6.0 %] 8.0 % *HI* (07/29/23 8:14 AM) Glu [74-106 mg/dL] 69 mg/dL *LOW* (07/29/23 8:14 AM) Hct [35-44 %] 36.6 % (07/29/23 8:14 AM) HDL [>35 mg/dL] 51 mg/dL (07/29/23 8:14 AM) Hgb [11.7-15.0 g/dL] 11.5 g/dL *LOW* (07/29/23 8:14 AM) K [3.5-5.1 mmol/L] 4.0 mmol/L (07/29/23 8:14 AM) LDL Chol, Calculated [50-130 mg/dL] 68 m g/dL (07/29/23 8:14 AM) MCH [28-33 pg] 30.4 pg (07/29/23 8:14 AM) MCHC [32-36 g/dL] 31.4 g/dL *LOW* (07/29/23 8:14 AM) MCV [81-96 fL] 96.8 fL *HI* (07/29/23 8:14 AM) Na [137-145 mmol/L] 141 mmol/L (07/29/23 8:14 AM) Plts [150-350 K/uL] 346 K/uL (07/29/23 8:14 AM) RBC [3.90-5.00 M/uL] 3.78 M/uL *LOW* (07/29/23 8:14 AM) T Bili [0.2-1.3 mg/dL] 0.3 mg/dL (07/29/23 8:14 AM) Prot [6.3-8.2 g/dL] 7.0 g/dL (07/29/23 8:14 AM) TG [<200 mg/dL] 101 mg/dL (07/29/23 8:14 AM) TSH [0.47-4.68 uIU/mL] 0.73 uIU/mL 5 (07/29/23 8:14 AM) WBC [4.0-10.4 K/uL] 6.80 K/uL (07/29/23 8:14 AM) 1Result Comment: Testing Performed By: Dept of Pathology [facility] [address], [address], [place] [address] 2Result Comment: Testing Performed By: Dept of Pathology [facility] [address], [address], [place] [address] 3Result Comment: Testing Performed By: Dept of Pathology [facility] [address], [address] [place] [address] 4Result Comment: Testing Performed By: Dept of Pathology [facility] [address], [address], [place] [address] 5Result Comment: Testing Performed By: Dept of Pathology [facility] [address], [address], [place] [address] Social History Social History Type Response Smoking Status Former Smoker, quit within 31 days - 1 yr Sex Female Patient Care team information Care Team Personnel Name: DO Maximus Terell Position: Resident Member Role: Lifetime Relationship Address: Address: [address] [place] [address] Care Team Related Persons Name: RIC DICKENS Address: home [address] [place], [place] [id number]
--- OUTSIDE RECORDS SUMMARY | 2023-09-03 10:08 | External Medical Summary | Continuity of Care Document ---
Author Name Unknown Organization [place] [address] [place] [phone] Encounter [facility] [id number] Date(s): 07/27/23 - 07/27/23 [facility] [address] [facility] [address] [place] [id number] [address] [address] [phone] Encounter Diagnosis Anemia(Discharge Diagnosis) - 07/27/23 Hypothyroidism(Discharge Diagnosis) - 07/27/23 History of TIA (transient ischemic attack)(Discharge Diagnosis) - 07/27/23 H/O fracture of femur(Discharge Diagnosis) - 07/27/23 Dysuria(Final) - Anxiety and depression(Discharge Diagnosis) - 07/27/23 UTI symptoms(Discharge Diagnosis) - 07/27/23 Type 2 diabetes mellitus(Discharge Diagnosis) - 07/27/23 Discharge Disposition: Home or Self Care [facility] Allergies, Adverse Reactions, Alerts No Known Allergies Assessment and Plan Extracted from: Title:Office Visit Note Author:DO Stroud Sameer Date:07/27/23 1.Anxiety and depression Chronic condition exacerbated/progressive/side effects of treatment Goal:Resolution Data:_PHQ9 score: 18, GAD7 score: 14 Plan: orderedhydroxyzine for acute anxiety. Consider starting SSRI at follow up visit in 2 weeks. Labs ordered to r/o metabolic cause of mood sx: TSH, CBC 2.UTI symptoms Acute, uncomplicated illness/injury Goal:Resolution Data:unique tests ordered: _Urine dipstick negative, urine culture ordered Plan: Urine culture pending, will start empiric treatment with Macrobid 3.Type 2 diabetes mellitus Chronic condition, stable Goal:_HbA1c < 7% Data: _ Plan: Continue Metformin Labs ordered: HbA1c, CMP 4.Anemia Chronic condition exacerbated/progressive/side effects of treatment Goal:Resolution Data:_ Plan: Review of post-op labs significant for low hemoglobin, recheck CBC 5.Hypothyroidism Chronic condition, stable Goal:_Maintain euthyroid state Data: _ Plan: TSH ordered, continue Levothyroxine 6.History of TIA (transient ischemic attack) Patient not currently on statin therapy. Lipid panel ordered, consider initiation of high intensity statin pending review of lab results. 7.H/O fracture of femur Immunizations Given and Recorded Vaccine Date Status [...] tab, PRN: as needed for anxiety, Pharmacy: [id number] Start Date: 07/27/23 Stop Date: 08/17/23 Status: Ordered levothyroxine Start: 07/27/23 11:22:00 EST, 112, PO, Daily Start Date: 07/27/23 Status: Ordered lisinopril Start: 07/27/23 11:22:00 EST, 40 mg =, PO, bid Start Date: 07/27/23 Status: Ordered Macrobid 100 mg oral capsule Start: 07/27/23 12:54:00 EST, 1 cap, PO, bid, Disp# 10 cap, Pharmacy: [id number] Start Date: 07/27/23 Stop Date: 08/01/23 Status: Ordered multivitamin Start: 07/27/23 11:23:00 EST, 1 tab, PO, Daily Start Date: 07/27/23 Status: Ordered Mental Status 07/27/23 Barriers to Learning one year None evide nt Mandatory Health Literacy Documentation Yes Health Literacy Communication Barriers N ever Primary Language Cuban Problem List Condition Confirmation Course Effective Dates Status H ealth Status Informant Anemia Confirmed Active History of TIA (transient ischemic attack) Confirmed Active Hypertension Confirmed Active Hypothyroidism Confirmed Active Anxiety and depression Confirmed Active Type 2 diabetes mellitus Confirmed Active Diagnosis Diagnosis Type Effective Dates Health Status Clinical Service Informant H/O fracture of femur Discharge Diagnosis 07/27/23 UTI symptoms Discharge Diagnosis 07/27/23 Type 2 diabetes mellitus Discharge Diagnosis 07/27/23 Anemia Discharge Diagnosis 07/27/23 Anxiety and depression Discharge Diagnosis 07/27/23 Hypothyroidism Discharge Diagnosis 07/27/23 History of TIA (transient ischemic attack) Discharge Diagnosis 07/27/23 Results Laboratory List Name Date Urine Chemstick POC Outpt 07/27/23 Most recent to oldest [Reference Range]: 1 Glucose Urine Dipstick Ref Range [negati ve] (07/27/23 12:05 PM) Bilirubin Urine Dipstick Ref Range [nega tive] (07/27/23 12:05 PM) Specific [place] Urine Ref Range [No Nor mal Defined] (07/27/23 12:05 PM) Protein Urine Dipstick Ref Range [negati ve] (07/27/23 12:05 PM) pH Urine Dipstick Ref Range [4.5 - 8.0] (07/27/23 12:05 PM) Ketones Urine Dipstick Ref Range [negati ve] (07/27/23 12:05 PM) Blood Urine Dipstick Ref Range [negative ] (07/27/23 12:05 PM) Urobilinogen Urine Dipstick Ref Range [0 .2 - 1.0 mg/dL] (07/27/23 12:05 PM) Nitrites Urine Dipstick Ref Range [negat estefania] (07/27/23 12:05 PM) Leukocytes Urine Dipstick Ref Range [neg ative] (07/27/23 12:05 PM) U Leuk Est Negative (07/27/23 12:05 PM) U Nitrite Negative (07/27/23 12:05 PM) U Urobilinogen 0.2 mg/dl (07/27/23 12:05 PM) U Protein Negative (07/27/23 12:05 PM) U pH 6 (07/27/23 12:05 PM) U Blood Negative (07/27/23 12:05 PM) U Spec Grav 1.025 1 (07/27/23 12:05 PM) U Ketones Negative (07/27/23 12:05 PM) U Bili Negative (07/27/23 12:05 PM) U Gluc 500 mg/dl (07/27/23 12:05 PM) U Appear Clear (07/27/23 12:05 PM) Urine color urine dipstick Straw (07/27/23 12:05 PM) 1Result Comment: Performed at: [facility], [address] [place] [address], [address], [place] [address] Orders for Microbiology Reports Name Date Urine Culture (CULTURE, URINE) 07/27/23 Microbiology Reports TEST:Urine.Cx STATUS:Auth (Verified) BODY SITE: SOURCE:Urine COLLECTED DATE/TIME:07/27/23 1:10 PM Culture NO GROWTH 2 DAYS Vital Signs Most recent to oldest [Reference Range]: 1 Patient Weight 63.0 kg (07/27/23 11:09 AM) Temperature [36.5-37.9 DegC] 36.7 DegC (07/27/23 11:09 AM) Heart Rate 71 bpm (07/27/23 11:09 AM) Respiratory Rate 20 br/min (07/27/23 11:09 AM) Blood Pressure 142/68mmHg (07/27/23 11:09 AM) Cuff Pulse Pressure 74 mmHg (07/27/23 11:09 AM) Social History Social History Type Response Smoking Status Former Smoker, quit within 31 days - 1 yr Sex Female FCM Outpt Note * MD Miguelito, Emiliana: MODIFY MD Miguelito, Emiliana: MODIFY Event Display: FCM Outpt Note Authored Date: [id number] Chief Complaint follow up from hosp fx femur History of Present Illness 68 year old female presenting for follow up care - s/p ORIF secondary to left- sided intertrochanteric femur fracture after fall. Notes very minimal pain, patient has upcoming follow up with orthopedics. Anxiety/Depression: Patient with chronic h/o anxiety and depression, previously followed with psychiatry and therapy, discontinued about 2 years ago and has not been on medications since. Previous med trials of Lexapro and Wellbutrin. Sx were well controlled until she started rehab in [facility], about 1 month ago Triggers include not beingat home, having to stay with daughter, and loss of independence since fall. Patient endorses difficulty sleeping, loss of interest, feeling like a burden, and poor appetite. Denies SI/HI. difficulty sleeping, At present, most important thing to patient is addressing acute anxiety. Plans torest[facility] therapy in [facility] Concern for UTI: Increased urinary frequency x1 week, denies overt dysuria but notes new feeling of pressure/discomfort with urination and occasional urinary hesitancy. Unsure of change in urine color. Denies fever/chills. Review of Systems as per HPI Physical Exam Vitals & Measurements T:36.7C HR:71(Monitored) RR:20 BP:142/68 SpO2:98% WT:63.0kg WT:63.000kg(Dosing) PHQ2 Data(Data Documented on:07/27/2023 11:06) Emotional health assessment POSITIVE PHQ-9 Data(Data Documented on:07/27/2023 11:14) PHQ-9 Severity Score:18 Thoughts that you would be better off or of hurting yourself in some way?Not at All Depression Risk:Elevated General Anxiety Disorder Screening: MADALYN-7 Score:14 MADALYN-7 Problem Severity:Somewhat Difficult General: _Alert and oriented, No acute distress Psych: Mood-affect congruence. Reports no SI/HI. Speech is of normal pace and content Assessment/Plan 1.Anxiety and depression Chronic condition exacerbated/progressive/side effects of treatment Goal:Resolution Data:_PHQ9 score: 18, GAD7 score: 14 Plan: orderedhydroxyzine for acute anxiety. Consider starting SSRI at follow up visit in 2 weeks. Labs ordered to r/o metabolic cause of mood sx: TSH, CBC 2.UTI symptoms Acute, uncomplicated illness/injury Goal:Resolution Data:unique tests ordered: _Urine dipstick negative, urine culture ordered Plan: Urine culture pending, will start empiric treatment with Macrobid 3.Type 2 diabetes mellitus Chronic condition, stable Goal:_HbA1c < 7% Data:_ Plan: Continue Metformin Labs ordered: HbA1c, CMP 4.Anemia Chronic condition exacerbated/progressive/side effects of treatment Goal:Resolution Data:_ Plan: Review of post-op labs significant for low hemoglobin, recheck CBC 5.Hypothyroidism Chronic condition, stable Goal:_Maintain euthyroid state Data:_ Plan: TSH ordered, continue Levothyroxine 6.History of TIA (transient ischemic attack) Patient not currently on statin therapy. Lipid panel ordered, consider initiation of high intensitystatin pending review of lab results. 7.H/O fracture of femur Attestation Preceptor Note: I saw the patient and confirmed the crane portions of the history and physical exam. Discussed with the resident physician and agree with the above impression and plan. Advised to have close f/u with us and call with any concerns. Emiliana Farley MD Problem List/Past Medical History Ongoing Anemia Anxiety and depression History of TIA (transient ischemic attack) Hypertension Hypothyroidism Type 2 diabetes mellitus Medications amLODIPine(amLODIPine 2.5 mg oral tablet), 2.5 mg= 1 tab, PO, Daily apixaban(Eliquis 2.5 mg oral tablet), 2.5 mg= 1 tab, PO, bid aspirin(Aspir 81 oral delayed release tablet), 81 mg= 1 tab, PO, Daily hydrOXYzine(hydrOXYzine hydrochloride 25 mg oral tablet), 25 mg= 1 tab, PO, tid, PRN levothyroxine, 112, PO, Daily lisinopril, 40 mg, PO, bid multivitamin, 1 tab, PO, Daily nitrofurantoin(Macrobid 100 [...] the next year) OverDue Adult Influenza Vaccine due01/30/23and every 1year Due Medicare Annual Wellness Visit due07/28/23and every 1year Satisfied(in the past 1 year) There are no satisfied recommendations within the defined date range Electronic Signature on File Electronically Reviewed/Signed by: Terell Stroud DO Author Signature Dt/Tm:07/28/2023 09:03 PM Resident Department of Family Medicine Electronically Reviewed/Signed by: Emiliana Farley MD Cosigner Signature Dt/Tm: 07/29/2023 11:49 AM Department of Family Medicine SR Patient Care team information Care Team Personnel Name: DO Stroud Sameer Position: Resident Member Role: Lifetime Relationship Address: Address: [facility] [address] [place] [id number] Care Team Related Persons Name: RIC DICKENS Address: home [address] [place] [phone]
[2023-09-03 10:43] LABS: BUN Creatinine Ratio 7.3 (10-20); Calcium 8.7 mg/dl (8.6-10.3); Creatinine Clr Calc Pharmacy 59.1 ml/min; Est GFR (African American) 85.2 ml/min; Est GFR (Non-African American) 73.5 ml/min
[2023-09-03 15:05] LABS: BUN Creatinine Ratio 9.1 (10-20); Creatinine Clr Calc Pharmacy 62.9 ml/min; Est GFR (Non-African American) 79.3 ml/min
[2023-09-03] MEDS ORDERED: INSULIN HUMAN NPH SC ONE (15:27)
[2023-09-03] MEDS ORDERED: NovoLIN-N (NPH) PER UNIT CHARGE SQ ONE (15:45)
[2023-09-03] MEDS ORDERED: IRON SUCROSE 200 MG in 0.9 % SODIUM CHLORIDE 100 ML IV ONE (15:49)
--- NOTE | 2023-09-03 15:52 | Psychiatric Consultation ---
Date of Consultation September 03, 2023 Impression / Recommendations Impression 68 y/o F with history of depression who is admitted with hyponatremia. She has been misusing oxycodone to numb her emotions (which she acknowledges) and may have been drinking excessively as well (which she denies but is reported by family). She meets criteria for diagnosis of recurrent major depression. She denies suicidal thoughts but acknowledges the likelihood that she's made negative statements "that could be interpreted that way". She's not currently on escitalopram because it might be a contributor to hyponatremia. The only antidepressants she recalls having taken are SSRI's and bupropion. She doesn't think any worked as monotherapy but that escitalopram and bupropion helped when taken together. She does not think she's ever taken any SNRI. Pt would be very appropriate for admission to the psychiatric service once she's medically stable. Overall I spent a total of 62 minutes on the floor for this consultation assessment including review of chart records, review of test results, direct evaluation of the patient [id number], counseling the patient, medication education with the patient, risk assessment, discussion with the psychiatric liaison nurse, and documentation in the electronic health record. (1) Major depressive disorder, recurrent severe without psychotic features: Plan * pt does not require suicide precautions or 1:1 monitoring * while pt might benefit from starting an SNRI, it probably makes more sense to wait until her medical evaluation is complete * once medially cleared, notify psychiatry for likely transfer to the psychiatric service Psych History Identifying Data ALBA DICKENS is a 68-year-old F with a history of depression, admitted on 09/02/2023 for hyponatremia. Consult is by the hospitalist service for "passive SI thoughts, in setting of addiction". Chief Complaint "I've been pretty depressed but I've got to get with the program if I'm ever going to get home". History of Present Illness As part of a thorough review of the available medical records, I have read and incorporated into my assessment the following note by the ED physician: "The patient is a 68-year-old female who presents emergency department with a chief complaint of anxiety and depression. Patient states that she had hip surgery several months ago and she has been abusing oxycodone at home. Patient states that she is also had issues with constipation because of this. Patient states this is caused issues with her relationship with her daughter who she currently lives with. She states that she has been having thoughts of "not wanting to be around anymore". Patient states that she has not had any physical symptoms aside from her constipation recently. She states she has not actually had much pain in her leg but does feel that she is getting more addicted to oxycodone. She states that she likes the way that it makes her feel. On arrival here to the ED the patient is otherwise hemodynamically stable and alert, she is in no acute distress on my initial assessment." the following note by the hospitalist: "This is a 68-year-old female who has a significant past medical history of insulin-dependent T2DM, HTN, HLD, history of CVA, hypothyroidism, depression and tobacco use who presents to ED secondary to feeling depressed. Of significance patient was last hospitalized and discharged on June, after experiencing mechanical fall and a closed left intertrochanteric fracture. She underwent left hip CMN on 06/19/[address] Almonte. Her hospital course was complicated by hyponatremia with a sodium of 127. It was felt this was secondary to excessive fluid intake and her fluids were restricted. She was then discharged to rehab where she had done well and then discharged to her daughters. She has been staying with her daughter since and is alone most of the time. She has history of depression in the past and previously was treated with Lexapro and Wellbutrin and had done well. Approximately 3 weeks ago she establish care with a [facility] family medicine provider who prescribed her escitalopram. She has been on this 3 weeks and knows it takes time to notice improvement. She constantly feels depressed, helpless, down, poor intake and states that she has been abusing her oxycodone that was prescribed to her after her surgery. She does not overuse the oxycodone but tends to take it 1-2 times a day to try to mask her depression symptoms. She denies any active suicidal or homicidal ideations. She does have previous history of mental health admission. She presented to ED due to significant depression hoping to undergo psychiatric help. In ED patient remained hemodynamically stable but unfortunately her sodium was as low as 122. She states this morning she drink a significant amount of water because she was constipated and knew that this would help her go. She states that she drank over a gallon. She then subsequently started to become nauseo us and had multiple episodes of vomiting. She did have 1 episode of diarrhea. Over the last 4 to 6 weeks she has had significant decline in intake. She admits to a 25 pound weight loss. She denies any alcohol use or abuse. She denies any known sick contacts, fever, chills, sweats, lightheadedness, dizziness, chest pain, shortness breath, cough, URI symptoms, hematemesis, melena or hematochezia. Currently she is complaining of epigastric discomfort and significant nausea. As far as her left hip fracture she feels she is doing very well with this and has no acute issues at this time." and the following note by the psychiatric liaison nurse: "Patient resting in bed, A&Ox4. She reports depressed mood, "I just don't feel good", but has difficulty explaining what that means. She feels it worsened after her leg fracture in June. She finds it difficult to function, "I can't make phone calls. I can't get anything done". She has been living with her daughter d/t needing assistance and her home has several steps. She utilizes a walker or wheelchair and is instructed to only bear 50% of her weight on the L leg until her Ortho follow-up, on the this month. Patient reports ~ 3 weeks ago she started overusing her oxycodone medication, "maybe 6 tablets a day (5mg tabs). It just made me calmer and able to deal with everything". She reports she does not have any more pain medication at home (ran out 2 days ago). She feels she is unable to function without inpatient treatment. She denies SI with plan or intent; she feels hopeless and "doesn't want to be here (alive)", SI is passive and she is able to contract for safety in the hospital. She reports having outpatient providers in the past, none current. She voices concern that she will not be welcome back to her daughters home, "after all this"." Review of the medical record reveals notes from psychiatric consultations in October and November of 2021 for depression. They reference an admission here for depression in 2017. A urine toxicology screen was negative for all tested substrates. BAL was <10 mg/dL. Pt endorses much of the history above. She says she "had been doing OK" living on her own until her hip fracture and that she has "not been able to get back to living" since then. She acknowledges spending most of her time in bed. She says she wants to get back to her own home and that staying with her daughter following surgery enabled her to be too passive. She knows people are concerned about how she's been using oxycodone but is somewhat dismissive of that - "maybe it's too much; I don't know". She thinks she's "probably" made negative statements that "could be" interpreted as suicidal "by someone who's worrying too much" but denies any "real" suicidal thoughts, plans, or intent. She does say she feels hopeless at times. She has poor energy, appetite, interest, and motivation and feels anhedonic. She "sort of stopped" seeing her therapist "months ago" but would like to resume. She's interested in inpatient psychiatric treatment which she's found helpful in the past. Past Psychiatric History Outpatient Services: none current Previous Psych Admissions: 2015 [facility], 2017 [facility] for depression/SI Past Medication Trials: Past trials of escitalopram, bupropion, paroxetine, alprazolam, clonazepam. Reports best response was when on both escitalopram and bupropion together. Allergies Allergy/AdvReac Type Severity Reaction Status Date / Time No Known Allergies Allergy Verified 01/02/22 21:14 Home Medications Medication Instructions Recorded Confirmed Type amlodipine 2.5 mg tablet 2.5 mg PO PM 11/22/21 09/02/23 History insulin aspart U-100 100 unit/mL 0 sliding scale dose subcut TIDM 11/22/21 09/02/23 History (3 mL) subcutaneous pen (Novolog FlexPen U-100 Insulin aspart) levothyroxine 112 mcg tablet 112 mcg PO DAILYBB 11/22/21 09/02/23 History (Euthyrox) lisinopril 40 mg tablet 20 mg PO BID 11/22/21 09/02/23 History multivitamin 1 tab PO DAILY 11/22/21 09/02/23 History acetaminophen 500 mg tablet 1,000 mg PO DIRECTED PRN Pain 12/24/21 09/02/23 History (Tylenol Extra Strength) pravastatin 40 mg tablet 40 mg PO HS 01/02/22 09/02/23 History aspirin 81 mg tablet,delayed 81 mg PO DAILY 06/18/23 09/02/23 History release cholecalciferol (vitamin D3) 10 10 mcg PO HS 06/18/23 09/02/23 History mcg (400 unit) tablet (Vitamin D3) oxycodone 5 mg tablet 5 - 10 mg (1 - 2 x 5 mg) PO Q4H 06/22/23 09/02/23 Rx PRN pain #1 tab Milk of Magnesia See Rx Instructions .Route .COMPLEX 09/02/23 09/02/23 History escitalopram oxalate 5 mg tablet 5 mg PO DAILY 09/02/23 09/02/23 History insulin glargine 100 unit/mL (3 15 unit subcut HS 09/02/23 09/02/23 History mL) subcutaneous pen (Basaglar KwikPen U-100 Insulin) Patient History Medical History (Updated 09/03/23 @ 17:20 by Christiano Latham MD) Major depressive disorder, recurrent severe without psychotic features Chronic hyponatremia Insulin-requiring or dependent type II diabetes mellitus Dyslipidemia Hypothyroidism Tobacco use disorder HTN (hypertension) Diabetes mellitus Surgical History Hx of tonsillectomy History of Family History Brother Hypertension Social History Smoking Status: Former smoker Tobacco Type: Cigarettes Second Hand Exposure: No; Do You Dip or Chew Tobacco: No; Hx Alcohol Use: No Hx Substance Use: No Preferred Language: Haitian Communication Ability: Effective Senior Pastor Required: No Beliefs That Will Affect Care: None marital status: / Current Living Situation: Family Current Living Situation Comment: living with daughter since hip fracture current occupational status: retired Other Information That Helps Us Care for You: No Feels Safe at Home: Yes Safety Concerns: Feels Safe At This Time Assistive Devices: Walker Physical Exam Psychiatric: Orientation: alert, oriented to person, oriented to place, oriented to time and cooperative Apperance: appropriately dressed and appropriately groomed Eye Contact: good eye contact Motor Behavior: no abnormal motor movements Speech: normal rate/rhythm/volume of speech Affect: + constricted affect Mood: + depressed mood and + anxious mood Thought Process: linear/logical thought process and thought association intact Thought Content: reality based without delusions, + hopelessness and + self deprecation Suicidal Thoughts: denies suicidal thoughts, denies suicidal plan and denies suicidal intent Homicidal Thoughts: denies homicidal thoughts Hallucinations: no auditory hallucinations and no visual hallucinations Cognition: recent memory grossly intact, remote memory grossly intact, attention grossly intact and language grossly intact Estimated Intelligence: consistent with education level Insight: + fair insight Judgment: + poor judgement Vital Signs (Past 24 Hours): Last Vital Signs Temp 37.4 C 09/03/23 15:10 Pulse 80 09/03/23 15:35 Resp 16 09/03/23 15:10 BP 143/72 H 09/03/23 15:10 Pulse Ox 98 09/03/23 15:10 O2 Del Method Room Air 09/03/23 15:10 Exam Statement: Physical exams were performed in the ED and by the admitting hospitalist for the purposes of medical clearance. I accept those physicals as correct and adequate and have incorporated that information into my assessment. Review of Systems Psychiatric: + depression, + hopelessness, + anhedonia, + abnormal sleep pattern, + change in appetite, + anxiety, + difficulty concentrating and + substance abuse; no suicidal ideation, no paranoia and no hallucinations Results & Data (PSY) Medications Administered Amlodipine Besylate (Amlodipine Besylate 5 Mg Tab) 2.5 mg PO PM SACHI Stop: 10/02/23 20:59 Last Admin: 09/02/23 22:01 Dose: 2.5 mg Documented By: DANNY Aspirin (Aspirin 81 Mg Ectab) 81 mg PO DAILY SACHI Stop: 10/03/23 08:59 Last Admin: 09/03/23 08:13 Dose: 81 mg Documented By: NIC Enoxaparin Sodium (Enoxaparin Inj 40 Mg/0.4 Ml Syr) 40 mg SQ Q24H SACHI Stop: 10/02/23 20:59 Last Admin: 09/02/23 21:27 Dose: 40 mg Documented By: DANNY Dextrose (D5w) 1,000 mls @ 250 mls/hr IV .Q4H SACHI Stop: 10/03/23 07:14 Last Admin: 09/03/23 14:31 Dose: 250 mls/hr Documented By: Infusion: 09/03/23 14:27 Dose: Infused Documented By: Infusion: 09/03/23 12:34 Dose: 250 mls/hr Documented By: Admin: 09/03/23 08:20 Dose: 125 mls/hr Documented By: NIC Insulin Aspart (Insulin Aspart Per Unit Charge) 0 units SC ACHS SACHI Stop: 10/02/23 20:59 Last Admin: 09/03/23 11:50 Dose: 7 units Documented By: NIC Co-signed By: DANIA Admin: 09/03/23 08:10 Dose: 2 units Documented By: NIC Co-signed By: JORGE Admin: 09/02/23 20:59 Dose: Not Given Documented By: DANNY Levothyroxine Sodium (Levothyroxine Sodium 112 Mcg Tablet) 112 mcg PO DAILYBB SACHI Stop: 10/03/23 06:29 Last Admin: 09/03/23 06:04 Dose: 112 mcg Documented By: DANNY Lisinopril (Lisinopril 20 Mg Tab) 20 mg PO BID SACHI Stop: 10/02/23 20:59 Last Admin: 09/03/23 08:13 Dose: 20 mg Documented By: Admin: 09/02/23 22:00 Dose: 20 mg Documented By: DANNY Multivitamins (Multivitamin Tab) 1 tab PO DAILY SACHI Stop: 10/03/23 08:59 Last Admin: 09/03/23 08:13 Dose: 1 tab Documented By: NIC Pravastatin Sodium (Pravastatin Sod 40 Mg Tab) 40 mg PO HS [facility] Stop: 10/02/23 20:59 Last Admin: 09/02/23 22:00 Dose: 40 mg Documented By: DANNY Vitamin D (Cholecalciferol 10 Mcg (400 Units) Tab) 10 mcg PO HS SACHI Stop: 10/02/23 20:59 Last Admin: 09/02/23 22:00 Dose: 10 mcg Documented By: DANNY Coding Level of Care Code 6[address] [facility] Intl Hosp Care Lvl 3 Diagnoses Major depressive disorder, recurrent severe without psychotic features F33.2 Time Spent (min) 62
--- NOTE | 2023-09-03 17:06 | Hospitalist Progress Note ---
Date of Service September 03, 2023 Assessment & Plan (1) Chronic hyponatremia: Plan: Acute on chronic hyponatremia secondary to Nausea and vomiting over correction with need of IVF low serum osm, urine osm 78 and urine na 19 newly started escitalopram; very poor intake, 10 pound weight loss in 2 months and today admits to drinking significant amount of water, polydipsic chronic hyponatremia (2) Insulin-requiring or dependent type II diabetes mellitus: Plan: Insulin requiring type II DM Lantus/NovoLog significant and out of control on 09/03/23 adjusted insulin 7.9% a1c (3) HTN (hypertension): Plan: HTN Chronic, stable Continue amlodipine, lisinopril (4) Dyslipidemia: Plan: Hyperlipidemia Chronic, stable Continue pravastatin (5) Major depression, recurrent, chronic: Plan: Major Depressive disorder with recurrent episode Resumed escitalopram 5 mg daily 3 weeks ago No SI/HI psychiatric eval may consider inpatient transfer (6) Iron deficiency: Plan: iron deficiency anemia is noted , will order venofer Plan DVT prophylaxis: Lovenox Moderate protein-calorie malnutrition Admission and Anticipated Discharge Date Admission Date: September 02, 2023 Results & Data Results & Data Vital Signs (Past 12 Hours) Vital Signs Temp Pulse Pulse Resp BP Pulse Ox O2 Del Method 09/03/23 15:35 80 09/03/23 15:10 99.3 F 78 16 143/72 H 98 Room Air 09/03/23 09:02 Room Air 09/03/23 09:00 71 PG Care Time/CCT Total # of Minutes Spent Total Time Spent with Patient: Total time spent is greater than 50% in coordination of care (as documented) at patient's floor/unit and/or counseling patient: Coding Level of Care Code None Diagnoses Chronic hyponatremia E87.1 Insulin-requiring or dependent type II diabetes mellitus E11.9; Z79.4 HTN (hypertension) I10 Dyslipidemia E78.5 Major depression, recurrent, chronic F33.9 Iron deficiency E61.1
[2023-09-03 18:41] LABS: BUN Creatinine Ratio 7.9 (10-20); Calcium 9.1 mg/dl (8.6-10.3); Creatinine Clr Calc Pharmacy 63.8 ml/min; Est GFR (African American) 93.4 ml/min; Est GFR (Non-African American) 80.6 ml/min; Potassium 3.5 mmol/L (3.5-5.1)
--- NOTE | 2023-09-03 19:03 | Communication Note ---
Date of Service: September 03, 2023 labs and VS trends reviewed sodium not dropping despite aggressive D5W; hyperglycemia noted. would continue D5W current aggressive rate until AM defer to hospitalist team to manage BG anticpiate lowering D5 rate if not stopping in am have asked RN to pass above re covering BG to supervisor benzene refining given the hour
[2023-09-03] MEDS: amLODIPine BESYLATE 5 MG TAB PO SCH (20:23)
[2023-09-03] MEDS: LANTUS PER UNIT CHARGE SQ SCH (20:30)
[2023-09-03] MEDS: ENOXAPARIN INJ 40 MG/0.4 ML SYR SQ SCH (20:33)
[2023-09-03] MEDS: PRAVASTATIN SOD 40 MG TAB PO SCH (20:33)
[2023-09-03] MEDS: CHOLECALCIFEROL 10 MCG (400 UNITS) TAB PO SCH (20:33)
[2023-09-03] MEDS ORDERED: MELATONIN 3 MG TAB PO PRN (20:57)
[2023-09-03] MEDS ORDERED: LANTUS PER UNIT CHARGE SQ SCH (21:00)
[2023-09-04] MEDS: DEXTROSE 5% 1,000 ML IV SCH ×2 (03:26→07:48)
[2023-09-04] MEDS: LEVOTHYROXINE SODIUM 112 MCG TABLET PO SCH (05:18)
[2023-09-04 06:33] LABS: Hematocrit (blood only) 30.9 % (37.0-47.0); Hemoglobin 10.2 g/dl (12.0-16.0); Mean Corpuscular Hemoglobin 29.9 pg (25.0-34.0); Mean Corpuscular Volume 90.6 fL (80.0-100.0); Mean Platelet Volume 10.8 fL (9.4-12.4); Platelet Count 257 K/uL (130-400); RDW Coefficient of Variation 12.8 % (11.5-14.5); RDW Standard Deviation 42.5 fL (36.4-46.3); Red Blood Count 3.41 M/uL (4.20-5.40); White Blood Count 5.56 K/ul (4.8-10.8)
[2023-09-04 06:57] LABS: BUN Creatinine Ratio 7.4 (10-20); Calcium 8.6 mg/dl (8.6-10.3); Creatinine Clr Calc Pharmacy 89.7 ml/min; Est GFR (African American) 112.4 ml/min; Potassium 3.8 mmol/L (3.5-5.1)
[2023-09-04] MEDS: lisinopril 20 MG TAB PO SCH ×2 (07:48→20:27)
[2023-09-04] MEDS: MULTIVITAMIN TAB PO SCH (07:49)
[2023-09-04] MEDS: ASPIRIN 81 MG ECTAB PO SCH (07:49)
[2023-09-04] MEDS: LANTUS PER UNIT CHARGE SQ SCH ×2 (08:00→20:26)
[2023-09-04] MEDS: INSULIN ASPART PER UNIT CHARGE SC SCH ×4 (08:01→20:26)
[2023-09-04] MEDS ORDERED: POTASSIUM CHLORIDE CRTAB 20 MEQ TABCR PO ONE (08:23)
--- NOTE | 2023-09-04 08:23 | Nephrology Progress Note ---
Date of Service September 04, 2023 Assessment & Plan (1) Chronic hyponatremia: Plan: polydipsic chronic hyponatremia correcting too fast from 122 on 09/02 1430 to 133 at 0600 09/03; she had aggressive D5W through the day and overnight 09/03-09/04 and came down only slightly to 131 this am, ? in part d/t hyperglycemia. In any event at this point we don't need to continue pushing Na back down since more time has elapsed >>>has not had escitalopram or any anti depressants since arrival >> no indication to hold this d/t hyponatremia; we can work around whatever medication best treats her depression -stopped D5W -started fluid limit 1.5L daily -gave potassium 20 mEq po x 1 -needs strict I/O -may be able to d/c tomorrow or this evening if sNa maintained low 130s -repeat BMP 1600 >> all is within normal limits Will sign off NEPHRO D/C RECOMMENDATIONS -while hyponatremia should be considered in choice of medication for depression, would not avoid escitalopram for example d/t hyponatremia alone; would use what works best and work around low Na if it emerges; treating depression is crane to getting her to eat which will help with the sodium problem -recommend fluid limit 2L daily starting tomorrow and would d/c on this until seen by nephro -daily BMP x 3; then again in one week -BMP at OP PCP f/u -would continue to avoid thiazides and nsaids in the care of this patient -recommend outpatient nephrology follow up in 2-3 wks any provider [place] with bmp to be drawn by renal nurse 3-5 days before presentation Care coordinated w/ Dr Jean Admission and Anticipated Discharge Date Admission Date: September 02, 2023 Subjective c/o anxiety and depression; states DP keeps her from eating; taking minimal po, not sleeping. ongoing N unchanged from admission, states "I know it's nerves" Review of Systems 2 Review of Systems: All systems reviewed & are unremarkable except as noted in Subjective Physical Exam 2 Constitutional: well developed, average body habitus, + frail appearing and cooperative; no acute distress Eyes: EOM intact bilaterally ENMT: Ears: no external ear abnormality Nose: no external nose abnormality Mouth: + dry oral mucous membranes Neck: no nuchal rigidity Respiratory: normal respiratory effort Auscultation: + diminished lung sounds Cardiovascular: RRR, no murmur, no edema Gastrointestinal (Abdomen): Inspection/Auscultation: normal bowel sounds P ercussion/Palpation: abdomen soft; abdomen nontender Musculoskeletal: Extremities: strength 5/5 throughout Skin: no rashes, warm and dry Neurologic: wilson, fluent speech, no tremor Psychiatric: Orientation: alert and oriented x 3 Results & Data Vital Signs (Past 12 Hours) Vital Signs Temp Pulse Pulse Resp BP Pulse Ox O2 Del Method 09/04/23 07:53 36.8 C 68 18 136/69 95 Room Air 09/04/23 07:19 60 09/04/23 03:00 36.8 C 55 L 18 128/72 93 Room Air 09/03/23 23:00 66 09/03/23 23:00 36.8 C 66 21 111/62 90 Room Air Laboratory Results 09/04/23 05:52 09/04/23 05:52
--- NOTE | 2023-09-04 12:09 | Psychiatric Progress Note ---
Date of Service September 04, 2023 Impression / Recommendations Impression As per Dr. Latham: 68 y/o F with history of depression who is admitted with hyponatremia. She has been misusing oxycodone to numb her emotions (which she acknowledges) and may have been drinking excessively as well (which she denies but is reported by family). She meets criteria for diagnosis of recurrent major depression. She denies suicidal thoughts but acknowledges the likelihood that she's made negative statements "that could be interpreted that way". She's not currently on escitalopram because it might be a contributor to hyponatremia. The only antidepressants she recalls having taken are SSRI's and bupropion. She doesn't think any worked as monotherapy but that escitalopram and bupropion helped when taken together. She does not think she's ever taken any SNRI. ongoing inability to function due to severe depression/vegetative symptoms, risk for suicide given recent statements, pain, use of controlled substance, etc. Overall, I spent a total of 40 minutes with this case, including review of chart, direct evaluation of the patient, counseling the patient, coordination with nursing,coordination of care with hospitalist service, and documentation. (1) Major depressive disorder, recurrent severe without psychotic features: Plan remains agreeable to inpatient psychiatric treatment, reviewed risks/benefits/alternatives/mental health statute re: 201 and unit routines/restrictions. anticipated transfer to when medically cleared. Interval History Identifying Information ALBA DICKENS is a 68-year-old F with a history of depression, admitted on 09/02/2023 for hyponatremia. Initial consult completed by Dr. Latham on 09/03/23 for depression and inability to function. Chief Complaint "I can't sleep, I can't eat. I can't do this at my daughter's place". Review of Systems Notes no N/V, urinating frequently due to IVF. patient is cooperative with diabetes regimen. Subjective Subjective Patient was seen & assessed and interval progress reviewed with nursing. She remains overwhelmed and depressed, ruminative re: her health issues. Admits to self medicating with the remainder of her oxy to numb her emotions. Medication is from her femur fracture. Is not yet fully weight bearing so using a walker. She gets home PT. She is barely touching her lunch. Marked hopelessness/helplessness. Did receive 1 dose of Ambien with benefit but only melatonin last night and only slept 1 hr until early am, said she had wierd dreams. Physical Exam Psychiatric Orientation: alert and cooperative Apperance: appropriately groomed Eye Contact: good eye contact Motor Behavior: no abnormal motor movements Speech: normal rate/rhythm/volume of speech Affect: + constricted affect Mood: + depressed mood and + anxious mood Thought Process: linear/logical thought process and thought association intact Thought Content: reality based without delusions, + hopelessness and + self deprecation Suicidal Thoughts: denies suicidal thoughts, denies suicidal plan and denies suicidal intent Homicidal Thoughts: denies homicidal thoughts Hallucinations: no auditory hallucinations and no visual hallucinations Cognition: recent memory grossly intact, remote memory grossly intact, attention grossly intact and language grossly intact Estimated Intelligence: consistent with education level Insight: + fair insight Judgment: + poor judgement Vital Signs (Past 24 Hours) Last Vital Signs Temp 36.7 C 09/04/23 11:43 Pulse 75 09/04/23 11:43 Resp 18 09/04/23 11:43 BP 125/81 09/04/23 11:43 Pulse Ox 96 09/04/23 11:43 O2 Del Method Room Air 09/04/23 11:43 Results & Data ([facility]) Laboratory Results Laboratory Results - last 24 hr 09/03/23 09/03/23 09/03/23 14:13 16:34 17:51 WBC RBC Hgb Hct MCV MCH MCHC RDW Std Deviation RDW Coeff of Cindy Plt Count MPV Sodium 131 L 133 L Potassium 4.0 3.5 Chloride 102 100 Carbon Dioxide 24 25 Anion Gap 5 8 BUN 7 6 Creatinine 0.77 0.76 Est Cr Clr Drug Dosing 62.9 63.8 Est GFR ( Amer) 92.0 93.4 Est GFR (Non-Af Amer) 79.3 80.6 BUN/Creatinine Ratio 9.1 L 7.9 L Glucose 336 H* 227 H POC Glucose 333 H* Calcium 9.0 9.1 09/03/23 09/04/23 09/04/23 20:05 02:05 05:52 WBC 5.56 RBC 3.41 L Hgb 10.2 L Hct 30.9 L MCV 90.6 MCH 29.9 MCHC 33.0 RDW Std Deviation 42.5 RDW Coeff of Cindy 12.8 Plt Count 257 MPV 10.8 Sodium 131 L Potassium 3.8 Chloride 101 Carbon Dioxide 24 Anion Gap 6 BUN 4 L Creatinine 0.54 L Est Cr Clr Drug Dosing 89.7 Est GFR ( Amer) 112.4 Est GFR (Non-Af Amer) 97.0 BUN/Creatinine Ratio 7.4 L Glucose 218 H POC Glucose 161 H 176 H Calcium 8.6 09/04/23 09/04/23 07:16 11:03 WBC RBC Hgb Hct MCV MCH MCHC RDW Std Deviation RDW Coeff of Cindy Plt Count MPV Sodium Potassium Chloride Carbon Dioxide Anion Gap BUN Creatinine Est Cr Clr Drug Dosing Est GFR ( Amer) Est GFR (Non-Af Amer) BUN/Creatinine Ratio Glucose POC Glucose 246 H 81 Calcium Current Inpatient Medications Current Inpatient Medications: Current Inpatient Medications Acetaminophen (Acetaminophen 325 Mg Tab) 650 mg PO Q4H PRN PRN Reason: Pain or Fever Stop: 10/02/23 19:10 Amlodipine Besylate (Amlodipine Besylate 5 Mg Tab) 2.5 mg PO PM SACHI Stop: 10/02/23 20:59 Last Admin: 09/03/23 20:23 Dose: Not Given Aspirin (Aspirin 81 Mg Ectab) 81 mg PO DAILY SACHI Stop: 10/03/23 08:59 Last Admin: 09/04/23 07:49 Dose: 81 mg Dextrose (Dextrose 50% 50 Ml Syringe) 25 - 50 ml IV UD PRN; Protocol PRN Reason: Hypoglycemia Protocol Stop: 10/02/23 19:10 Enoxaparin Sodium (Enoxaparin Inj 40 Mg/0.4 Ml Syr) 40 mg SQ Q24H SACHI Stop: 10/02/23 20:59 Last Admin: 09/03/23 20:33 Dose: 40 mg Escitalopram Oxalate (Escitalopram Oxalate 10 Mg Tab) 5 mg PO DAILY SACHI Stop: 10/03/23 08:59 Glucagon (Glucagon For Inj 1 Mg Vial) 1 mg SQ UD PRN; Protocol PRN Reason: Hypoglycemia Protocol Stop: 10/02/23 19:10 Glucose (Glucose 10 Tab/Tube) 4 - 8 tab PO UD PRN; Protocol PRN Reason: Hypoglycemia Treatment Stop: 10/02/23 19:10 Glucose (Glucose 40% Gel 15 Gm Tube) 15 - 30 gm PO UD PRN; Protocol PRN Reason: Hypoglycemia Protocol Stop: 10/02/23 19:10 Insulin Aspart (Insulin Aspart Per Unit Charge) 0 units SC ACHS [facility] Stop: 10/02/23 20:59 Last Admin: 09/04/23 11:46 Dose: Not Given Insulin Glargine (Lantus Per Unit Charge) 10 units SQ BID SACHI Stop: 10/03/23 20:59 Last Admin: 09/04/23 08:00 Dose: 10 units Levothyroxine Sodium (Levothyroxine Sodium 112 Mcg Tablet) 112 mcg PO DAILYBB [facility] Stop: 10/03/23 06:29 Last Admin: 09/04/23 05:18 Dose: 112 mcg Lisinopril (Lisinopril 20 Mg Tab) 20 mg PO BID SACHI Stop: 10/02/23 20:59 Last Admin: 09/04/23 07:48 Dose: 20 mg Melatonin (Melatonin 3 Mg Tab) 3 mg PO HS PRN PRN Reason: Sleep Stop: 10/03/23 20:56 Last Admin: 09/03/23 21:34 Dose: 3 mg Miscellaneous (Carbohydrates For Hypoglycemia ) 15 - 30 gm PO UD PRN PRN Reason: Hypoglycemia Protocol Stop: 10/02/23 19:10 Multivitamins (Multivitamin Tab) 1 tab PO DAILY SACHI Stop: 10/03/23 08:59 Last Admin: 09/04/23 07:49 Dose: 1 tab Ondansetron HCl (Ondansetron Inj 2 Mg/Ml 2 Ml Vial) 4 mg IV Q6H PRN PRN Reason: Nausea Stop: 10/02/23 19:10 Polyethylene Glycol (Polyethylene (Miralax) 17 Gm Pack) 17 gm PO DAILY PRN PRN Reason: Constipation Stop: 10/02/23 19:10 Pravastatin Sodium (Pravastatin Sod 40 Mg Tab) 40 mg PO HS [facility] Stop: 10/02/23 20:59 Last Admin: 09/03/23 20:33 Dose: 40 mg Vitamin D (Cholecalciferol 10 Mcg (400 Units) Tab) 10 mcg PO HS [facility] Stop: 10/02/23 20:59 Last Admin: 09/03/23 20:33 Dose: 10 mcg
[2023-09-04 16:52] LABS: BUN Creatinine Ratio 8.6 (10-20); Calcium 9.8 mg/dl (8.6-10.3); Creatinine Clr Calc Pharmacy 83.5 ml/min; Est GFR (African American) 109.8 ml/min; Est GFR (Non-African American) 94.7 ml/min; Potassium 4.2 mmol/L (3.5-5.1)
--- NOTE | 2023-09-04 18:12 | Hospitalist Progress Note ---
Date of Service September 04, 2023 Assessment & Plan (1) Chronic hyponatremia: Plan: Acute on chronic hyponatremia secondary to Nausea and vomiting sodium is now normal newly started escitalopram; very poor intake, 10 pound weight loss in 2 months and today admits to drinking significant amount of water, polydipsic chronic hyponatremia, the sodium has normalized with nephrology oversight (2) Insulin-requiring or dependent type II diabetes mellitus: Plan: Insulin requiring type II DM Lantus/NovoLog significant and out of control on 09/03/23 adjusted insulin, will keep on basal bolus 7.9% a1c (3) HTN (hypertension): Plan: HTN Chronic, stable Continue amlodipine, lisinopril (4) Dyslipidemia: Plan: Hyperlipidemia Chronic, stable Continue pravastatin (5) Major depression, recurrent, chronic: Plan: Major Depressive disorder with recurrent episode Resumed escitalopram 5 mg daily 3 weeks ago No SI/HI sleep issues try seroquel psychiatric eval may consider inpatient transfer (6) Iron deficiency: Plan: iron deficiency anemia is noted , will order venofer Plan DVT prophylaxis: Lovenox Moderate protein-calorie malnutrition Admission and Anticipated Discharge Date Admission Date: September 02, 2023 Subjective c/o anxiety and depression; wants to go to inpatient behavioral health did not sleep last night did discuss with neprhology Physical Exam Physical Exam: awake alert and appropriate cardiac exam is regular lungs are clear Results & Data Results & Data Vital Signs (Past 12 Hours) Vital Signs Temp Pulse Pulse Resp BP Pulse Ox O2 Del Method 09/04/23 16:15 97.9 F 89 18 125/72 94 Room Air 09/04/23 16:01 80 09/04/23 11:43 98.1 F 75 18 125/81 96 Room Air 09/04/23 09:00 Room Air 09/04/23 07:53 98.2 F 68 18 136/69 95 Room Air 09/04/23 07:19 60 PG Care Time/CCT Total # of Minutes Spent Total Time Spent with Patient: Total time spent is greater than 50% in coordination of care (as documented) at patient's floor/unit and/or counseling patient: Coding Diagnoses Chronic hyponatremia E87.1 Insulin-requiring or dependent type II diabetes mellitus E11.9; Z79.4 HTN (hypertension) I10 Dyslipidemia E78.5 Major depression, recurrent, chronic F33.9 Iron deficiency E61.1
[2023-09-04] MEDS: PRAVASTATIN SOD 40 MG TAB PO SCH (20:27)
[2023-09-04] MEDS: CHOLECALCIFEROL 10 MCG (400 UNITS) TAB PO SCH (20:27)
[2023-09-04] MEDS: amLODIPine BESYLATE 5 MG TAB PO SCH (20:28)
[2023-09-04] MEDS: ENOXAPARIN INJ 40 MG/0.4 ML SYR SQ SCH (20:29)
[2023-09-04] MEDS ORDERED: QUEtiapine FUMARATE 25 MG TABLET PO SCH ×2 (21:00)
--- NOTE | 2023-09-05 07:33 | Discharge Summary ---
Date of Service September 04, 2023 Admission HPI Per Admitting Provider This is a 68-year-old female who has a significant past medical history of insulin-dependent T2DM, HTN, HLD, history of CVA, hypothyroidism, depression and tobacco use who presents to ED secondary to feeling depressed. Of significance patient was last hospitalized and discharged on June, after experiencing mechanical fall and a closed left intertrochanteric fracture. She underwent left hip CMN on 06/19/[address] Almonte. Her hospital course was complicated by hyponatremia with a sodium of 127. It was felt this was secondary to excessive fluid intake and her fluids were restricted. She was then discharged to rehab where she had done well and then discharged to her daughters. She has been staying with her daughter since and is alone most of the time. She has history of depression in the past and previously was treated with Lexapro and Wellbutrin and had done well. Approximately 3 weeks ago she establish care with a [facility] medicine provider who prescribed her escitalopram. She has been on this 3 weeks and knows it takes time to notice improvement. She constantly feels depressed, helpless, down, poor intake and states that she has been abusing her oxycodone that was prescribed to her after her surgery. She does not overuse the oxycodone but tends to take it 1-2 times a day to try to mask her depression symptoms. She denies any active suicidal or homicidal ideations. She does have previous history of mental health admission. She presented to ED due to significant depression hoping to undergo psychiatric help. In ED patient remained hemodynamically stable but unfortunately her sodium was as low as 122. She states this morning she drink a significant amount of water because she was constipated and knew that this would help her go. She states that she drank over a gallon. She then subsequently started to become nauseous and had multiple episodes of vomiting. She did have 1 episode of diarrhea. Over the last 4 to 6 weeks she has had significant decline in intake. She admits to a 25 pound weight loss. She denies any alcohol use or abuse. She denies any known sick contacts, fever, chills, sweats, lightheadedness, dizziness, chest pain, shortness breath, cough, URI symptoms, hematemesis, melena or hematochezia. Currently she is complaining of epigastric discomfort and significant nausea. As far as her left hip fracture she feels she is doing very well with this and has no acute issues at this time. Principal Diagnosis acute on chronic hyponatremia severe depression Discharge Exam awake alert and cooperative no physical complaints neurologic exam non focal cardiac regular Discharge Data Allergies Allergy/AdvReac Type Severity Reaction Status Date / Time No Known Allergies Allergy Verified 01/02/22 21:14 Consultations 09/02/23 17:20 ED Decision to Admit Stat 09/02/23 18:24 Consult Nephrology Routine Consult Psychiatry Routine Hospital Course (1) Chronic hyponatremia: Acute on chronic hyponatremia secondary to Nausea and vomiting sodium is now normal newly started escitalopram; very poor intake, 10 pound weight loss in 2 months and today admits to drinking significant amount of water, polydipsic chronic hyponatremia, the sodium has normalized with nephrology oversight, caution considering SSRI (2) Insulin-requiring or dependent type II diabetes mellitus: Insulin requiring type II DM Lantus/NovoLog significant and out of control on 09/03/23 adjusted insulin, will keep on basal bolus 7.9% a1c (3) HTN (hypertension): HTN Chronic, stable Continue amlodipine, lisinopril (4) Dyslipidemia: Hyperlipidemia Chronic, stable Continue pravastatin (5) Major depression, recurrent, chronic: Major Depressive disorder with recurrent episode Resumed escitalopram 5 mg daily 3 weeks ago No SI/HI sleep issues try seroquel psychiatric inpatient transfer (6) Iron deficiency: iron deficiency anemia is noted , will order venofer Plan DVT prophylaxis: Lovenox Moderate protein-calorie malnutrition Total Time Total Time Spent Total Time Spent (In Minutes): greater than 30 minutes were required to discharge Discharge Plan Discharge Items Patient Disposition: Transfer Behavioral Health Fac Reason For Visit: DETOX REQUEST, HYPONATREMIA Discharge Diagnosis: Hyponatremia Significant depression Insulin requiring diabetes Activity: Per Instructions section Activity Comment: As per behavioral health regulations Non-emergency contact: Primary Care Provider Call non-emergency contact if: your symptoms worsen Follow-up/Referrals: Heather Heath PA-C [Primary Care Provider] - Diet: Regular Addtl Attending Provider Instructions: Avoid ingesting large quantities of water when drinking consider drinking liquids that contain other things rather than just plain water Continue to use her insulin both sliding scale and glargine dosing Follow-up with your family doctor 1 week after discharge from your behavioral health stay Pending Studies at Discharge: No Stand-Alone Forms: My [facility] Medications and DC Order Prescriptions: Continued multivitamin Tablet 1 tab PO DAILY amlodipine 2.5 mg tablet 2.5 mg PO PM lisinopril 40 mg tablet 20 mg PO BID levothyroxine [Euthyrox] 112 mcg tablet 112 mcg PO DAILYBB acetaminophen [Tylenol Extra Strength] 500 mg Tablet 1,000 mg PO DIRECTED PRN (Reason: Pain) cholecalciferol (vitamin D3) [Vitamin D3] 10 mcg (400 unit) Tablet 10 mcg PO HS aspirin 81 mg Tablet,Delayed Release (Dr/Ec) 81 mg PO DAILY pravastatin 40 mg tablet 40 mg PO HS escitalopram oxalate 5 mg tablet 5 mg PO DAILY Changed insulin aspart U-100 [Novolog FlexPen U-100 Insulin] 100 unit/mL (3 mL) Insulin Pen 1 sliding scale dose subcut USEASDIRECTD MDD 25 unit Qty: 15 0RF Rx Instructions: -Goal BSG Range: Low 110_mg/dL, High 140_mg/dL --Correction Factor: 20_mg/dL/unit --Carbohydrate ratio = _12_ g/unit insulin glargine [Basaglar KwikPen U-100 Insulin] 100 unit/mL (3 mL) insulin pen 10 unit SUBCUT BID Qty: 15 0RF Discontinued oxycodone 5 mg Tablet 5 - 10 mg PO Q4H PRN (Reason: pain) Qty: 1 0RF Milk of Magnesia See Rx Instructions .ROUTE .COMPLEX Rx Instructions: DIRECTED Discharge Orders: Discharge Order (Routine); Ordered 09/04/23 Ordered By: Minesh Lopez/Other Patient Handouts: Managing Type 2 Diabetes Admission Data Admit Date/Time: 09/02/23 17:22 Attending Provider: Minesh Jean Admit Provider: Elaine Ledesma Primary Care Provider: Heather Heath Other Providers: Joann Sy; Lindsay Smith; Chucky Dawn; Christiano Latham; Tomy Huggins Jr; Elaine Ledesma Other Interventions: Discharge Summary Assessment (RN) Last Done: 09/04/23 18:30 Coding Level of Care Code 18818 INP/OBS DISCH >30 MIN Diagnoses Chronic hyponatremia E87.1 Insulin-requiring or dependent type II diabetes mellitus E11.9; Z79.4 HTN (hypertension) I10 Dyslipidemia E78.5 Major depression, recurrent, chronic F33.9 Iron deficiency E61.1
== END 2023-09-04 21:16 | DRG 641 ==
LOC: ED 13:53 → SUATTDRO 17:22 → 2E 17:22

== ENCOUNTER 2023-09-04 20:18 | Inpatient (IN) ==
[2023-09-04] MEDS ORDERED: SODIUM CHLORIDE 0.65% NA SOLN 45 ML (OCEAN) PRN (20:47)
[2023-09-04] MEDS ORDERED: hydrOXYzine HCl 25 MG TAB PO PRN (20:47)
[2023-09-04] MEDS ORDERED: BISMUTH SUBSALICYLATE LIQD 236 ML PO PRN (20:47)
[2023-09-04] MEDS ORDERED: ACETAMINOPHEN 325 MG TAB PO PRN (20:47)
[2023-09-04] MEDS ORDERED: ALUMINUM/MAGNESIUM SUSP 30 ML UDC PO PRN (20:47)
[2023-09-04] MEDS: ZOLPIDEM TARTRATE 5 MG TAB PO PRN (22:01)
[2023-09-05] MEDS ORDERED: PHARMACY GLYCEMIC MGMT CONSULT PRN (07:29)
[2023-09-05] MEDS ORDERED: GLUCOSE 40% GEL 15 GM TUBE PO PRN (08:30)
[2023-09-05] MEDS ORDERED: GLUCAGON FOR INJ 1 MG VIAL IM PRN (08:30)
[2023-09-05] MEDS ORDERED: GLUCOSE 10 TAB/TUBE PO PRN (08:30)
[2023-09-05] MEDS ORDERED: DEXTROSE 50% 50 ML SYRINGE IV PRN (08:30)
[2023-09-05] MEDS: LEVOTHYROXINE SODIUM 112 MCG TABLET PO SCH (08:35)
[2023-09-05] MEDS ORDERED: LANTUS PER UNIT CHARGE SC SCH ×2 (09:00→22:00)
[2023-09-05] MEDS: ESCITALOPRAM OXALATE 10 MG TAB PO SCH (09:16)
[2023-09-05] MEDS: ASPIRIN 81 MG ECTAB PO SCH (09:16)
[2023-09-05] MEDS: lisinopril 20 MG TAB PO SCH (09:17)
[2023-09-05] MEDS: MULTIVITAMIN TAB PO SCH (09:17)
[2023-09-05] MEDS: INSULIN ASPART PER UNIT CHARGE SC SCH (09:23)
[2023-09-05] MEDS: DOCUSATE SODIUM 100 MG CAP PO SCH (10:30)
--- NOTE | 2023-09-05 11:01 | History & Physical ---
Date of Service September 05, 2023 Impression / Recommendations Impression 68 yo female with a hx of recurrent depression following femur fracture who admittedly took pain medication to self-medicate depression. Her vegetative symptoms along with opioid likely contributed to constipation which she treated inappropriately with excessive water drinking and ingestions of vegetable oil. She has denied SI but has difficulty functioning to the totality of her medical problems and ruminations. A private room remains medically necessary for the safety of self and others given fall risk, need for walker, age >65 with community spread of respiratory viruses, etc. Overall, I spent a total of 78 minutes with this case, including review of chart, review of records, direct evaluation of the patient, counseling the patient, ordering medication, coordination with nursing,coordination of care with hospitalist service and diabetic pharmacist, risk assessment, and documentation. (1) Major depressive disorder, recurrent severe without psychotic features: (2) Chronic hyponatremia: (3) Closed intertrochanteric fracture of left hip: Encounter type: initial encounter Fracture alignment: displaced Qualified Code(s): S72.142A - Displaced intertrochanteric fracture of left femur, initial encounter for closed fracture (4) Insulin-requiring or dependent type II diabetes mellitus: Plan 09/05/23: The patient was admitted to the [facility] ([facility] unit) on q15 min checks (behavioral with suicide precautions) for safety. The patient will participate in group, recreational, and milieu therapies and will be offered additional individual and family sessions as clinically appropriate. She does not want to resume Lexapro as SSRI (any many antidepressants) can contribute to hyponatremia. Discussed trial of Cymbalta and she would prefer to resume Wellbutrin as she has taken it before and she hopes it may also help with some tobacco cravings as she stopped smoking following fall. D/C Lexapro. Will rx Wellbutrin 100 mg SR starting today, reviewed lower dose given that can be activating for anxiety and intefere with sleep. She denies seizure hx. She was prescribed Seroquel 25-50 mg on the medical floor to assist hs anxiety and sleep. She feels the Ambien is more effective and is aware it's mainly for short term use. Will continue 5 mg trial and offer Seroquel prn. Ambien less likely to effect blood sugars. Stool softener. glycemic pharmacy consult, spoke with pharmacy as patient would prefer hs only dosing of lantus clarified discharge recs with Dr. Jean who feels patient no longer requires fluid restriction and can have f/u labs on 09/07 with pcp f/u as indicated in discharge summary. PT consult as was receiving home PT prior to medical admission and will resume services upon discharge. Weight bearing with walker only pending clearance by ortho on 09/15. Inventory Assets Strengths: help seeking, supportive family Needs: improve coping skills, safety plan for medications Suicide Risk Level Suicide Risk Level: Low (q15 min observation checks) Risk Factors Assessment : Yes Do You Have Access To A Gun?: No Health Problems: Yes Mental Health Diagnoses: Yes Previous Attempt: No Family History of Suicide: Yes Previous Psychiatric Hospitalization: Yes Protective Factors Assessment Supportive Family: Yes Psychiatric History Identifying Data ALBA DICKENS is a 68-year-old F from [place], has a history of depression, and was admitted on 09/04/23 21:28 on a 201 voluntary commitment for inability to function. She was admitted to the medical floor on 09/02 for hyponatremia and t ransferred upon medical clearance. Chief Complaint "It's just all so overhwhelming". History of Present Illness Patient was seen on consult service by Dr. Latham and continued to request inpatient care on reassessment on 09/04/23 as disrupted sleep, overwhelming anxiety, poor concentration/motivation, and poor appetite. Although she was not taking excessive amounts of opioid medication, it was being used to numb her emotions twice a day rather than deal with ruminative thoughts. She feels hopele ss and "useless" around her daughter's home where she has been staying since d/c from rehab following her fx as patient's home is 2 floors and bathroom is upstairs. She worries about finances and ability to maintain her home of nearly 50 years by herself. She is also struggling to care for her 10 yo dog who also has health issues. She feels like a burden in asking others for help. Although she loves her 4 yo grandson, interacting with a preschooler is overwhelming. Due to her inactivity, poor diet, and use of prescription pain medication she developed significant constipation and was admittedly drinking excessive amounts of water. When that failed to relieve her constipation she ingested cooking oil which caused GI distress which also likely contributed to her drop in sodium to 128 on admission. She denies that she was intentionally trying to harm herself and states that she didn't realize that water could be dangerous. She continues to deny suicidal thoughts but is easily overwhelmed and admits that she has made some passive SI statements in the past. In general, her mood over the past year was stable off of meds prior to the fall and she had transitioned out of regular therapy. Past Psychiatric History Previous Psych History: [facility] Current Psychiatric Diagnosis: MDD Outpatient Services: none currently Previous Psych Admissions: 2017 [facility], ?2015 Katie--reviewed previous admission/discharge summary--was receiving care at [facility] at that time, family secured a weapon, the patient had denied a plan to use it but did have depression/SI. There is mention of some self-medication with alcohol at that time Do You Have Access To A Gun?: No History of Previous Suicide Attempt: No Past Medication Trials: Paxil, Wellbutrin, Lexapro, Xanax, Klonopin Allergies Allergy/AdvReac Type Severity Reaction Status Date / Time No Known Allergies Allergy Verified 01/02/22 21:14 Home Medications Medication Instructions Recorded Confirmed Type amlodipine 2.5 mg tablet 2.5 mg PO PM 11/22/21 09/02/23 History levothyroxine 112 mcg tablet 112 mcg PO DAILYBB 11/22/21 09/02/23 History (Euthyrox) lisinopril 40 mg tablet 20 mg PO BID 11/22/21 09/02/23 History multivitamin 1 tab PO DAILY 11/22/21 09/02/23 History acetaminophen 500 mg tablet 1,000 mg PO DIRECTED PRN Pain 12/24/21 09/02/23 History (Tylenol Extra Strength) pravastatin 40 mg tablet 40 mg PO HS 01/02/22 09/02/23 History aspirin 81 mg tablet,delayed 81 mg PO DAILY 06/18/23 09/02/23 History release cholecalciferol (vitamin D3) 10 10 mcg PO HS 06/18/23 09/02/23 History mcg (400 unit) tablet (Vitamin D3) escitalopram oxalate 5 mg tablet 5 mg PO DAILY 09/02/23 09/02/23 History insulin aspart U-100 100 unit/mL 1 sliding scale dose subcut 09/04/23 09/02/23 Rx (3 mL) subcutaneous pen (Novolog USEASDIRECTD #15 mL FlexPen U-100 Insulin aspart) insulin glargine 100 unit/mL (3 10 unit (0.1 mL) subcut BID #15 mL 09/04/23 0 09/02/23 Rx mL) subcutaneous pen (Basaglar KwikPen U-100 Insulin) Family History Family History of: Doesn't Know Family Mental Health History Comment: sister by suicide, uncle with depression, mother had depression (did not raise her) Alcohol History Hx of Alcohol Use Over the Past 12 Months: Yes (social) AUDIT Total Score: 1 Smoking Use Have You Smoked or Used Tobacco Products in the Last 30 Days: No tobacco type: cigarettes Smoking Status: Former smoker Substance History Hx of Prescription Med Misuse Over the Past 12 Months: Yes (pain meds) Hx of Over the Counter Med Misuse Over the Past 12 Months: No Hx of Inhalent Misuse Over the Past 12 Months: No Hx of Organic Substance Use Over the Past 12 Months: No Hx of Illegal Substances/Street Drug Use Over Past 12 Months: No Problems as a Result of Past Substance Use: None Identified Personal History Living Arrangements: Home Living Arrangements Comments: currently staying at [address] [place] [address] (daughter's home) Highest Grade Completed: High School Graduate Marital Status: Number Of Children: 1 Beliefs That Will Affect Care: None Hx Legal Problems: No Hx Traumatic Life Events: No Patient History Medical History Major depressive disorder, recurrent severe without psychotic features Chronic hyponatremia Insulin-requiring or dependent type II diabetes mellitus Dyslipidemia Hypothyroidism Tobacco use disorder HTN (hypertension) Diabetes mellitus Surgical History Hx of tonsillectomy History of Family History Brother Hypertension Social History Smoking Status: Former smoker Tobacco Type: Cigarettes Second Hand Exposure: No; Do You Dip or Chew Tobacco: No; Hx Alcohol Use: No Hx Substance Use: No Preferred Language: Cuban Communication Ability: Effective Shoeblack Required: No Beliefs That Will Affect Care: None marital status: / Current Living Situation: Family Current Living Situation Comment: living with daughter since hip fracture current occupational status: retired Feels Safe at Home: Yes and No Is there a partner from a previous relationship who is making you feel unsafe now?: No Gender Identity: Female Assistive Devices: Walker Review of Systems Review of Systems: All systems reviewed & are unremarkable except as noted in HPI & below Physical Exam Psychiatric: Orientation: alert and oriented x 3 Apperance: appropriately dressed and appropriately groomed Eye Contact: good eye contact Motor Behavior: no abnormal motor movements Speech: normal rate/rhythm/volume of speech Affect: + depressed affect and + anxious affect Mood: + depressed mood and + anxious mood Thought Process: goal directed thought process Thought Content: reality based without delusions Suicidal Thoughts: denies suicidal thoughts Homicidal Thoughts: denies homicidal thoughts Hallucinations: no auditory hallucinations and no visual hallucinations Cognition: attention grossly intact and language grossly intact Estimated Intelligence: consistent with education level Insight: + limited insight Judgment: + limited judgement Vital Signs (Past 24 Hours): Last Vital Signs Temp 36.4 C L 09/05/23 06:23 Pulse 77 09/05/23 06:23 Resp 18 09/05/23 06:23 BP 120/74 09/05/23 06:23 Pulse Ox 95 09/05/23 06:23 O2 Del Method Room Air 09/05/23 06:23 Exam Statement: A physical exam was performed on the medical floor by Laura Quevedo PA-C for the purposes of the inpatient physical with follow up/medical clearance by Dr. Jean. I accept the exams of the hospitalist services as correct and adequate for the purposes of the inpatient physical exam. Results & Data ([facility]) Laboratory Results Laboratory Results - last 24 hr 09/05/23 07:49 POC Glucose 76 RBC3.42 M/uL (4.20-5.40) L 09/03/23 WBC 7.60 K/ul (4.8-10.8) 09/03/23 Hgb 10.3 g/dl (12.0-16.0) L 09/03/23 Hct 30.6 % (37.0-47.0) L 09/03/23 Plt Count 278 K/uL (130-400) 09/03/23 Neutrophils (%) (Auto) 81.7 % 09/02/23 Lymphocytes (%) (Auto) 12.6 % 09/02/23 Monocytes # (Auto) 0.57 K/uL (0.11-0.59) 09/02/23 Eosinophils # (Auto) 0.02 K/uL (0.00-0.50) 09/02/23 Immature Granulocyte % (Auto) 0.4 % 09/02/23 Neutrophils # (Auto) 9.30 K/uL (1.40-6.50) H 09/02/23 Lymphocytes # (Auto) 1.44 K/uL (1.20-3.40) 09/02/23 Monocytes # (Auto) 0.57 K/uL (0.11-0.59) 09/02/23 Eosinophils # (Auto) 0.02 K/uL (0.00-0.50) 09/02/23 Basophils # (Auto) 0.01 K/uL (0.00-0.20) 09/02/23 Immature Granulocyte # (Auto) 0.05 K/uL (0.01-0.20) 09/02/23 Na 133 mmol/L (136-145) L 09/03/23 K 4.0 mmol/L (3.5-5.1) 09/03/23 Cl 103 mmol/L (98-107) 09/03/23 CO2 24 mmol/L (21-32) 09/03/23 Anion Gap 6 (3-11) 09/03/23 BUN 6 mg/dl (6-23) 09/03/23 Creatinine 0.82 mg/dl (0.6-1.2) 09/03/23 BUN/Creatinine Ratio 7.3 (10-20) L 09/03/23 Glucose Level 205 mg/dl (70-99(Fasting)) H 09/03/23 Ca 8.7 mg/dl (8.6-10.3) 09/03/23 Total Bilirubin 0.5 mg/dl (0.2-1.0) 09/02/23 AST/SGOT 14 U/L (13-39) 09/02/23 ALT/SGPT 11 U/L (7-52) 09/02/23 Alkaline Phosphatase 82 U/L (34-104) 09/02/23 Total Protein 6.5 gm/dl (6.0-8.3) 09/02/23 Albumin 3.9 gm/dl (3.4-5.0) 09/02/23 Globulin 2.6 gm/dl (2.5-4.0) 09/02/23 Albumin/Globulin Ratio 1.5 (0.9-2) 09/02/23 Ferritin 71.2 ng/ml (8-388) 09/03/23 note normal TSH on admit, COVID test negative prior to transfer and sodium had corrected to 137. Current Inpatient Medications Current Inpatient Medications: Current Inpatient Medications Acetaminophen (Acetaminophen 500 Mg Tab) 1,000 mg PO Q8H PRN PRN Reason: Pain Stop: 10/05/23 07:44 Al Hydrox/Mg Hydrox/Simethicone (Aluminum/Magnesium Susp 30 Ml Udc) 30 ml PO Q4H PRN PRN Reason: GI Upset Stop: 10/04/23 20:46 Amlodipine Besylate (Amlodipine Besylate 5 Mg Tab) 2.5 mg PO PM SACHI Stop: 10/05/23 20:59 Aspirin (Aspirin 81 Mg Ectab) 81 mg PO DAILY SACHI Stop: 10/05/23 08:59 Last Admin: 09/05/23 09:16 Dose: 81 mg Bismuth Subsalicylate (Bismuth Subsalicylate Liqd 236 Ml) 15 ml PO PRN PRN PRN Reason: Loose Stool Stop: 10/04/23 20:46 Dextrose (Dextrose 50% 50 Ml Syringe) 25 - 50 ml IV UD PRN; Protocol PRN Reason: Hypoglycemia Protocol Stop: 10/05/23 08:29 Docusate Sodium (Docusate Sodium 100 Mg Cap) 100 mg PO BID SACHI Stop: 10/05/23 10:14 Last Admin: 09/05/23 10:30 Dose: 100 mg Glucagon (Glucagon For Inj 1 Mg Vial) 1 mg IM UD PRN; Protocol PRN Reason: Hypoglycemia Protocol Stop: 10/05/23 08:29 Glucose (Glucose 40% Gel 15 Gm Tube) 15 - 30 gm PO UD PRN; Protocol PRN Reason: Hypoglycemia Protocol Stop: 10/05/23 08:29 Glucose (Glucose 10 Tab/Tube) 4 - 8 tab PO UD PRN; Protocol PRN Reason: Hypoglycemia Protocol Stop: 10/05/23 08:29 Hydroxyzine HCl (Hydroxyzine Hcl 25 Mg Tab) 25 mg PO Q4H PRN PRN Reason: Anxiety Stop: 10/04/23 20:46 Insulin Aspart (Insulin Aspart Per Unit Charge) 0 units SC ACHS [facility] Stop: 10/05/23 08:29 Last Admin: 09/05/23 09:23 Dose: Not Given Levothyroxine Sodium (Levothyroxine Sodium 112 Mcg Tablet) 112 mcg PO DAILYBB [facility] Stop: 10/05/23 07:59 Last Admin: 09/05/23 08:35 Dose: 112 mcg Lisinopril (Lisinopril 20 Mg Tab) 20 mg PO BID [facility] Stop: 10/05/23 08:59 Last Admin: 09/05/23 09:17 Dose: 20 mg Magnesium Hydroxide (Magnesium Hydroxide Susp 30 Ml Udc) 30 ml PO DAILY PRN PRN Reason: Constipation Stop: 10/04/23 20:46 Miscellaneous (Carbohydrates For Hypoglycemia ) 15 - 30 gm PO UD PRN PRN Reason: Hypoglycemia Treatment Stop: 10/05/23 08:29 Miscellaneous Information (Pharmacy Glycemic Mgmt Consult) 1 each N/A UD PRN; Protocol PRN Reason: Consult Stop: 10/05/23 07:28 Multivitamins (Multivitamin Tab) 1 tab PO DAILY [facility] Stop: 10/05/23 08:59 Last Admin: 09/05/23 09:17 Dose: 1 tab Pravastatin Sodium (Pravastatin Sod 40 Mg Tab) 40 mg PO HS [facility] Stop: 10/05/23 21:59 Quetiapine Fumarate (Quetiapine Fumarate 25 Mg Tablet) 25 mg PO HS PRN PRN Reason: Insomnia Stop: 10/05/23 21:59 Sodium Chloride (Sodium Chloride 0.65% Na Soln 45 Ml (Straughn)) 1 - 2 sprays NA PRN PRN PRN Reason: Nasal Dryness/Congestion Stop: 10/04/23 20:46 Vitamin D (Cholecalciferol 10 Mcg (400 Units) Tab) 10 mcg PO HS [facility] Stop: 10/05/23 21:59 Zolpidem Tartrate (Zolpidem Tartrate 5 Mg Tab) 5 mg PO HS [facility] Stop: 10/05/23 21:59
[2023-09-05] MEDS: buPROPion SR 100 MG TABCR PO SCH (12:51)
--- NOTE | 2023-09-05 14:20 | Pharmacy Report ---
Pharmacy Glycemic Short Note 2 - Date of Service September 05, 2023 - Glycemic Short BSG Results (Last 24 hours): 09/05/23 09/05/23 09/05/23 07:49 12:00 12:02 POC Glucose 76 345 H* 372 H* OUTPATIENT ANTIDIABETIC REGIMEN: * Basaglar 10 units bid, Novolog - (from 09/02-09/04 adm; continued on discharge) ASSESSMENT: * 68 year old admitted to [facility] unit. Pharmacy consulted for glycemic management. Fasting BSG 76 mg/dL - patient previously receiving Lantus 10 units BID from last admission. Received 20 units of basal total yesterday. Discussed with provider and patient would prefer taking long acting insulin at HS. Plan to start Lantus 15 units at HS. Slight reduction warranted as AM fasting <80 mg/dL. Of note, had been on high rate of D5 fluids last admission for hyponatremia so anticipate insulin needs to be less. * Lunch BSG trending upward 372 - discussed with RN and reports taken prior to eating. Does report patient had a small breakfast but carbs consumed were very minimal so no insulin needed. Plan to recheck BSG this afternoon to ensure trending downward. PLAN FOR INPATIENT GLYCEMIC CONTROL: * Hold outpatient oral diabetes medications * Basal insulin * Lantus 15 units hs * Bolus insulin * NovoLog per scale ACHS or Q6hrs while NPO * Goal Range: Low 110 mg/dL - High 140 mg/dL * Correction Factor: 20 mg/dL/unit * Nutritional / Prandial insulin per carb ratio of 1 unit per 12 grams CHO consumed
[2023-09-05] MEDS: CARBOHYDRATES FOR HYPOGLYCEMIA PO PRN (20:21)
[2023-09-05] MEDS: amLODIPine BESYLATE 5 MG TAB PO SCH (21:09)
[2023-09-05] MEDS: CHOLECALCIFEROL 10 MCG (400 UNITS) TAB PO SCH (21:11)
[2023-09-05] MEDS: PRAVASTATIN SOD 40 MG TAB PO SCH (21:11)
[2023-09-05] MEDS: LANTUS PER UNIT CHARGE SC SCH (21:13)
[2023-09-05] MEDS: ZOLPIDEM TARTRATE 5 MG TAB PO SCH (21:13)
[2023-09-06] MEDS: hydrOXYzine HCl 25 MG TAB PO PRN (09:07)
--- NOTE | 2023-09-06 09:20 | Pharmacy Report ---
Pharmacy Glycemic Short Note 2 - Date of Service September 06, 2023 - Glycemic Short BSG Results (Last 24 hours): 09/05/23 09/05/23 09/05/23 12:00 12:02 15:02 POC Glucose 345 H* 372 H* 295 H 09/05/23 09/05/23 09/05/23 17:02 20:19 20:26 POC Glucose 136 H 56 L* 62 L* 09/05/23 09/06/23 20:46 08:03 POC Glucose 80 263 H OUTPATIENT ANTIDIABETIC REGIMEN: * Basaglar 10 units SC BID * Novolog ACHS SC sliding scale * HbA1c: 7.9% (09/03/23) ASSESSMENT: 09/06: * Lana received 28 units of insulin yesterday, 12 basal + 16 bolus. BSGs were labile: 27-730-787-136-56 mg/dL. Patient was asymptomatic during hypoglycemia that evening and required 15 g carbs to bring BSG up to 80 mg/dL. Of note, Lantus was reduced last evening secondary to hypoglycemia. * Fasting BSG is 263 mg/dL this morning. RN denies any snacking/eating prior to check per her knowledge. Patient prefer basal dose to be given at HS. Will increase basal to previously ordered regimen of 15 units. Novolog was loosened this AM given trend down in BSG yesterday evening resulting in hypoglycemia. Ordered and tolerating a T1DM diet. 09/05: * 68 year old admitted to [facility] unit. Pharmacy consulted for glycemic management. Fasting BSG 76 mg/dL - patient previously receiving Lantus 10 units BID from last admission. Received 20 units of basal total yesterday. Discussed with provider and patient would prefer taking long acting insulin at HS. Plan to start Lantus 15 units at HS. Slight reduction warranted as AM fasting <80 mg/dL. Of note, had been on high rate of D5 fluids last admission for hyponatremia so anticipate insulin needs to be less. * Lunch BSG trending upward 372 - discussed with RN and reports taken prior to eating. Does report patient had a small breakfast but carbs consumed were very minimal so no insulin needed. Plan to recheck BSG this afternoon to ensure trending downward. PLAN FOR INPATIENT GLYCEMIC CONTROL: * Basal insulin * Lantus 15 units SC HS * Bolus insulin * NovoLog per scale ACHS or Q6hrs while NPO * Goal Range: Low 110 mg/dL - High 140 mg/dL * Correction Factor: 30 mg/dL/unit * Nutritional / Prandial insulin per carb ratio of 1 unit per 15 grams CHO c onsumed
--- NOTE | 2023-09-06 15:48 | Psychiatric Progress Note ---
Date of Service September 06, 2023 Impression / Recommendations Impression 68 yo female with a hx of recurrent depression following femur fracture who admittedly took pain medication to self-medicate depression. Her vegetative symptoms along with opioid likely contributed to constipation which she treated inappropriately with excessive water drinking and ingestions of vegetable oil. She has denied SI but has difficulty functioning to the totality of her medical problems and ruminations. A private room remains medically necessary for the safety of self and others given fall risk, need for walker, age >65 with community spread of respiratory viruses, etc. Overall, I spent a total of 37 minutes with this case, including review of chart, review of records, direct evaluation of the patient, counseling the patient, ordering medication, coordination with nursing, and documentation. (1) Major depressive disorder, recurrent severe without psychotic features: (2) Chronic hyponatremia: (3) Closed intertrochanteric fracture of left hip: (4) Insulin-requiring or dependent type II diabetes mellitus: Plan 09/06/23: titrate Wellbutrin to 150 mg XL in am. 09/05/23: The patient was admitted to the [facility] ([facility] unit) on q15 min checks (behavioral with suicide precautions) for safety. The patient will participate in group, recreational, and milieu therapies and will be offered additional individual and family sessions as clinically appropriate. She does not want to resume Lexapro as SSRI (any many antidepressants) can contribute to hyponatremia. Discussed trial of Cymbalta and she would prefer to resume Wellbutrin as she has taken it before and she hopes it may also help with some tobacco cravings as she stopped smoking following fall. D/C Lexapro. Will rx Wellbutrin 100 mg SR starting today, reviewed lower dose given that can be activating for anxiety and intefere with sleep. She denies seizure hx. She was prescribed Seroquel 25-50 mg on the medical floor to assist hs anxiety and sleep. She feels the Ambien is more effective and is aware it's mainly for short term use. Will continue 5 mg trial and offer Seroquel prn. Ambien less likely to effect blood sugars. Stool softener. glycemic pharmacy consult, spoke with pharmacy as patient would prefer hs only dosing of lantus clarified discharge recs with Dr. Jean who feels patient no longer requires fluid restriction and can have f/u labs on 09/07 with pcp f/u as indicated in discharge summary. PT consult as was receiving home PT prior to medical admission and will resume services upon discharge. Weight bearing with walker only pending clearance by ortho on 09/15. Inventory Assets Strengths: help seeking, supportive family Needs: improve coping skills, safety plan for medications Suicide Risk Level Suicide Risk Level: Low (q15 min observation checks) Risk Factors Assessment : Yes Do You Have Access To A Gun?: No Health Problems: Yes Mental Health Diagnoses: Yes Previous Attempt: No Family History of Suicide: Yes Previous Psychiatric Hospitalization: Yes Protective Factors Assessment Supportive Family: Yes Interval History Identifying Information ALBA DICKENS is a 68-year-old F from [place], has a history of depression, and was admitted on 09/04/23 21:28 on a 201 voluntary commitment for inability to function. She was admitted to the medical floor on 09/02 for hyponatremia and transferred upon medical clearance. Chief Complaint ongoing anxiety and "just not happy" Review of Systems Sleep Information Total Hours of Sleep: 6.5 Sleep Comments: PRN Ambien Meal Information Percent Meal Consumed - Breakfast: 50 Percent Meal Consumed - Lunch: 65 Percent Meal Consumed - Dinner: 25 Subjective Subjective Patient was seen & assessed and interval progress reviewed with treatment team. Patient continues to rate mood as 3-4/10. Now revealing a bit more about passive wish prior to admission, primarily related to anhedonia. Undecided on ability to manage her senior dog. She is not willing to take any more Ambien despite feeling it was helpful initially on med floor. Tolerating Wellbutrin without jitteriness. Physical Exam Psychiatric Orientation: alert and oriented x 3 Apperance: appropriately dressed and appropriately groomed Eye Contact: good eye contact Motor Behavior: no abnormal motor movements Speech: normal rate/rhythm/volume of speech Affect: + depressed affect and + anxious affect Mood: + depressed mood and + anxious mood Thought Process: goal directed thought process Thought Content: reality based without delusions Suicidal Thoughts: denies suicidal thoughts Homicidal Thoughts: denies homicidal thoughts Hallucinations: no auditory hallucinations and no visual hallucinations Cognition: attention grossly intact and language grossly intact Estimated Intelligence: consistent with education level Insight: + limited insight Judgment: + limited judgement Vital Signs (Past 24 Hours) Last Vital Signs Temp 36.8 C 09/06/23 06:33 Pulse 74 09/06/23 06:34 Resp 16 09/06/23 06:33 BP 134/78 09/06/23 06:34 Pulse Ox 95 09/05/23 06:23 O2 Del Method Room Air 09/05/23 06:23 Results & Data ([facility]) Laboratory Results Laboratory Results - last 24 hr 09/05/23 09/05/23 09/05/23 17:02 20:19 20:26 POC Glucose 136 H 56 L* 62 L* 09/05/23 09/06/23 09/06/23 20:46 08:03 12:34 POC Glucose 80 263 H 209 H Current Inpatient Medications Current Inpatient Medications: Current Inpatient Medications Acetaminophen (Acetaminophen 500 Mg Tab) 1,000 mg PO Q8H PRN PRN Reason: Pain Stop: 10/05/23 07:44 Al Hydrox/Mg Hydrox/Simethicone (Aluminum/Magnesium Susp 30 Ml Udc) 30 ml PO Q4H PRN PRN Reason: GI Upset Stop: 10/04/23 20:46 Amlodipine Besylate (Amlodipine Besylate 5 Mg Tab) 2.5 mg PO PM SACHI Stop: 10/05/23 20:59 Last Admin: 09/05/23 21:09 Dose: 2.5 mg Aspirin (Aspirin 81 Mg Ectab) 81 mg PO DAILY SACHI Stop: 10/05/23 08:59 Last Admin: 09/06/23 08:18 Dose: 81 mg Bismuth Subsalicylate (Bismuth Subsalicylate Liqd 236 Ml) 15 ml PO PRN PRN PRN Reason: Loose Stool Stop: 10/04/23 20:46 Bupropion HCl (Bupropion Sr 100 Mg Tabcr) 100 mg PO QAM SACHI Stop: 10/05/23 12:14 Last Admin: 09/06/23 08:19 Dose: 100 mg Dextrose (Dextrose 50% 50 Ml Syringe) 25 - 50 ml IV UD PRN; Protocol PRN Reason: Hypoglycemia Protocol Stop: 10/05/23 08:29 Docusate Sodium (Docusate Sodium 100 Mg Cap) 100 mg PO BID SACHI Stop: 10/05/23 10:14 Last Admin: 09/06/23 08:20 Dose: 100 mg Glucagon (Glucagon For Inj 1 Mg Vial) 1 mg IM UD PRN; Protocol PRN Reason: Hypoglycemia Protocol Stop: 10/05/23 08:29 Glucose (Glucose 40% Gel 15 Gm Tube) 15 - 30 gm PO UD PRN; Protocol PRN Reason: Hypoglycemia Protocol Stop: 10/05/23 08:29 Glucose (Glucose 10 Tab/Tube) 4 - 8 tab PO UD PRN; Protocol PRN Reason: Hypoglycemia Protocol Stop: 10/05/23 08:29 Hydroxyzine HCl (Hydroxyzine Hcl 25 Mg Tab) 25 mg PO Q4H PRN PRN Reason: Anxiety Stop: 10/04/23 20:46 Last Admin: 09/06/23 09:07 Dose: 25 mg Insulin Aspart (Insulin Aspart Per Unit Charge) 0 units SC [facility]; Protocol Stop: 10/05/23 08:29 Last Admin: 09/06/23 13:23 Dose: 5 units Insulin Glargine (Lantus Per Unit Charge) 15 units SC [facility]; Protocol Stop: 10/05/23 21:59 Levothyroxine Sodium (Levothyroxine Sodium 112 Mcg Tablet) 112 mcg PO DAILYBB [facility] Stop: 10/05/23 07:59 Last Admin: 09/06/23 08:17 Dose: 112 mcg Lisinopril (Lisinopril 20 Mg Tab) 20 mg PO BID [facility] Stop: 10/05/23 08:59 Last Admin: 09/06/23 08:21 Dose: 20 mg Magnesium Hydroxide (Magnesium Hydroxide Susp 30 Ml Udc) 30 ml PO DAILY PRN PRN Reason: Constipation Stop: 10/04/23 20:46 Miscellaneous (Carbohydrates For Hypoglycemia ) 15 - 30 gm PO UD PRN PRN Reason: Hypoglycemia Treatment Stop: 10/05/23 08:29 Last Admin: 09/05/23 20:21 Dose: 15 gm Miscellaneous Information (Pharmacy Glycemic Mgmt Consult) 1 each N/A UD PRN; Protocol PRN Reason: Consult Stop: 10/05/23 07:28 Multivitamins (Multivitamin Tab) 1 tab PO DAILY [facility] Stop: 10/05/23 08:59 Last Admin: 09/06/23 08:21 Dose: 1 tab Pravastatin Sodium (Pravastatin Sod 40 Mg Tab) 40 mg PO HS [facility] Stop: 10/05/23 21:59 Last Admin: 09/05/23 21:11 Dose: 40 mg Quetiapine Fumarate (Quetiapine Fumarate 25 Mg Tablet) 25 mg PO HS PRN PRN Reason: Insomnia Stop: 10/05/23 21:59 Sodium Chloride (Sodium Chloride 0.65% Na Soln 45 Ml ([place])) 1 - 2 sprays NA PRN PRN PRN Reason: Nasal Dryness/Congestion Stop: 10/04/23 20:46 Vitamin D (Cholecalciferol 10 Mcg (400 Units) Tab) 10 mcg PO HS SACHI Stop: 10/05/23 21:59 Last Admin: 09/05/23 21:11 Dose: 10 mcg Zolpidem Tartrate (Zolpidem Tartrate 5 Mg Tab) 5 mg PO HS SACHI Stop: 10/05/23 21:59 Last Admin: 09/05/23 21:13 Dose: 5 mg (3) Closed intertrochanteric fracture of left hip Encounter type: initial encounter Fracture alignment: displaced Qualified Code(s): S72.142A - Displaced intertrochanteric fracture of left femur, initial encounter for closed fracture
[2023-09-06] MEDS: QUEtiapine FUMARATE 25 MG TABLET PO PRN (21:04)
[2023-09-06] MEDS: LANTUS PER UNIT CHARGE SC SCH (21:36)
[2023-09-07 07:35] LABS: BUN Creatinine Ratio 15.5 (10-20); Calcium 9.3 mg/dl (8.6-10.3); Creatinine Clr Calc Pharmacy 68.2 ml/min; Est GFR (African American) 101.4 ml/min; Est GFR (Non-African American) 87.5 ml/min; Potassium 4.8 mmol/L (3.5-5.1)
[2023-09-07] MEDS: buPROPion XL 150 MG TABCR PO SCH (08:43)
--- NOTE | 2023-09-07 08:55 | Pharmacy Report ---
Pharmacy Glycemic Short Note 2 - Date of Service September 07, 2023 - Glycemic Short BSG Results (Last 24 hours): 09/06/23 09/06/23 09/06/23 12:34 17:05 19:53 Glucose POC Glucose 209 H 69 L* 237 H 09/07/23 09/07/23 06:53 08:20 Glucose 229 H POC Glucose 216 H OUTPATIENT ANTIDIABETIC REGIMEN: * Basaglar 10 units SC BID * Novolog ACHS SC sliding scale * HbA1c: 7.9% (09/03/23) ASSESSMENT: 09/07: * Patient received 33 units of insulin yesterday, 15 basal + 18 bolus. BSGs were: [id number] mg/dL. * Dinner hypoglycemia was asymptomatic. Treated with 15 g carbs but refused recheck per nursing notes. Hypoglycemia may have been due to insulin stacking or too much correctional insulin. * Given lunchtime BSGs have been elevated, will tighten Novolog with breakfast only and then loosen Novolog starting at lunchtime throughout the remainder of the evening. Goal is to control lunchtime BSG and prevent hypoglycemia throughout the evening. Goal range will also be loosened starting at lunch. * Fasting BSG did improve to 216 mg/dL today but still remains well above goal. Will increase basal by 30% this evening. 09/06: * Lana received 28 units of insulin yesterday, 12 basal + 16 bolus. BSGs were labile: [phone] mg/dL. Patient was asymptomatic during hypoglycemia that evening and required 15 g carbs to bring BSG up to 80 mg/dL. Of note, Lantus was reduced last evening secondary to hypoglycemia. * Fasting BSG is 263 mg/dL this morning. RN denies any snacking/eating prior to check per her knowledge. Patient prefer basal dose to be given at HS. Will increase basal to previously ordered regimen of 15 units. Novolog was loosened this AM given trend down in BSG yesterday evening resulting in hypoglycemia. Ordered and tolerating a T1DM diet. 09/05: * 68 year old admitted to [facility] unit. Pharmacy consulted for glycemic management. Fasting BSG 76 mg/dL - patient previously receiving Lantus 10 units BID from last admission. Received 20 units of basal total yesterday. Discussed with pro vider and patient would prefer taking long acting insulin at HS. Plan to start Lantus 15 units at HS. Slight reduction warranted as AM fasting <80 mg/dL. Of note, had been on high rate of D5 fluids last admission for hyponatremia so anticipate insulin needs to be less. * Lunch BSG trending upward 372 - discussed with RN and reports taken prior to eating. Does report patient had a small breakfast but carbs consumed were very minimal so no insulin needed. Plan to recheck BSG this afternoon to ensure trending downward. PLAN FOR INPATIENT GLYCEMIC CONTROL: * Basal insulin * Lantus 20 units SC HS * Bolus insulin * NovoLog per scale ACHS or Q6hrs while NPO * Breakfast: Goal Range = 110 mg/dL - 140 mg/dL; Correction Factorbb= 20 mg/dL/unit; Carb ratio of 1 unit per 12 grams CHO consumed * Lunch, Dinner, HS: Goal Range = 120 mg/dL - 160 mg/dL; Correction Factorbb= 45 mg/dL/unit; Carb ratio of 1 unit per 15 grams CHO consumed
[2023-09-07] MEDS: INSULIN ASPART PER UNIT CHARGE SC SCH ×2 (09:05→13:13)
[2023-09-07] MEDS: QUEtiapine FUMARATE 25 MG TABLET PO PRN (15:07)
--- NOTE | 2023-09-07 15:49 | Psychiatric Progress Note ---
Date of Service September 07, 2023 Impression / Recommendations Impression 68 yo female with a hx of recurrent depression following femur fracture who admittedly took pain medication to self-medicate depression. Her vegetative symptoms along with opioid likely contributed to constipation which she treated inappropriately with excessive water drinking and ingestions of vegetable oil. She has denied SI but has difficulty functioning to the totality of her medical problems and ruminations. A private room remains medically necessary for the safety of self and others given fall risk, need for walker, age >65 with community spread of respiratory viruses, etc. Overall, I spent a total of 37 minutes with this case, including review of chart, review of records, direct evaluation of the patient, counseling the patient, ordering medication, coordination with nursing, and documentation. (1) Major depressive disorder, recurrent severe without psychotic features: Plan We will continue with her current level of observation and precautions. I encouraged her to take part in the therapeutic milieu, attend groups and activities, maintain good hygiene, and try not to isolate. I used a behavioral activation approach there. We discussed options for her anxiety and decided to try a small dose of Seroquel during the day as needed for anxiety. I wrote for 12.5 mg twice daily as needed anxiety. She is now aware that she can take an extra dose of 25 mg of Seroquel during the night before 3 AM if she needs it. We also talked about her upcoming living situation and how we need to make sure she is functioning well enough that she is not going to be a burden to her [id number]. The patient worries a lot about being a burden and not being able to be at home. We will continue with the Wellbutrin XL to try to help her mood. Inventory Assets Strengths: help seeking, supportive family Needs: improve coping skills, safety plan for medications Suicide Risk Level Suicide Risk Level: Low (q15 min observation checks) Risk Factors Assessment : Yes Do You Have Access To A Gun?: No Health Problems: Yes Mental Health Diagnoses: Yes Previous Attempt: No Family History of Suicide: Yes Previous Psychiatric Hospitalization: Yes Protective Factors Assessment Supportive Family: Yes Interval History Identifying Information LANA DICKENS is a 68-year-old F from [place], has a history of depression, and was admitted on 09/04/23 21:28 on a 201 voluntary commitment for inability to function. She was admitted to the medical floor on 09/02 for hyponatremia and transferred upon medical clearance. Chief Complaint "Because I broke my femur." Review of Systems Sleep Information Total Hours of Sleep: 6.30 Sleep Comments: Pt recived Seroquel 25mg Meal Information Percent Meal Consumed - Breakfast: 25 Percent Meal Consumed - Lunch: 75 Percent Meal Consumed - Dinner: 50 Subjective Subjective Today I met with the patient, received nursing report, and reviewed her chart. We also had a multidisciplinary treatment team meeting involving nursing and social work to discuss her care. Lana is in our hospital after she had broken her femur and became depressed and anxious. This led to poor sleep and suicidal ideation. Staff report that she is still having some passive suicidal thoughts and feeling hopeless and depressed. It looks like she will be staying with her [id number] after she gets out of the hospital. Staff stated she can be pretty rigid in her thinking and felt like the hydroxyzine that was given to her last night did not help. She was also given some Seroquel in the night to help with sleep but was not aware that she could take a second dose. Staff also brought up that she has been somewhat resistant to outpatient therapy. When I met with the patient this morning, we were meeting for the first time so I was trying to establish some rapport. We talked about some of the things that she has been trying to do to past the time. He tried taking a nap this morning but could not sleep. She is willing to work with a therapist and we talked about how we will help her set that up. We also talked about the second dose of Seroquel she can take during the night if she is having trouble sleeping. She is aware that she can take that before 3 AM. We also talked about what we can do to help with her anxiety during the day. I explained that medications can sometimes cause people to be unsteady on her feet and, with her history of a recent broken femur, we have to be very careful about that. She understood and we talked about some options. Physical Exam Mental Examination Appearance: Well Groomed Eye Contact: Maintains Eye Contact Motor Behavior: Unremarkable Speech: Normal Mood: Depressed Affect: Flat Thought Process: Intact Insight: Fair Judgement: Fair Psychiatric Orientation: alert and oriented x 3 Apperance: appropriately dressed and appropriately groomed Eye Contact: good eye contact Motor Behavior: no abnormal motor movements Speech: normal rate/rhythm/volume of speech Affect: + depressed affect and + anxious affect Mood: + depressed mood and + anxious mood Thought Process: goal directed thought process Thought Content: reality based without delusions Suicidal Thoughts: denies suicidal thoughts Homicidal Thoughts: denies homicidal thoughts Hallucinations: no auditory hallucinations and no visual hallucinations Cognition: attention grossly intact and language grossly intact Estimated Intelligence: consistent with education level Insight: + limited insight Judgment: + limited judgement Vital Signs (Past 24 Hours) Last Vital Signs Temp 37 C 09/07/23 06:41 Pulse 76 09/07/23 06:41 Resp 16 09/07/23 06:41 BP 121/74 09/07/23 06:41 Pulse Ox 95 09/05/23 06:23 O2 Del Method Room Air 09/05/23 06:23 Results & Data ([facility]) Laboratory Results Laboratory Results - last 24 hr 09/06/23 09/06/23 09/07/23 17:05 19:53 06:53 Sodium 135 L Potassium 4.8 Chloride 102 Carbon Dioxide 28 Anion Gap 5 BUN 11 Creatinine 0.71 Est Cr Clr Drug Dosing 68.2 Est GFR ( Amer) 101.4 Est GFR (Non-Af Amer) 87.5 BUN/Creatinine Ratio 15.5 Glucose 229 H POC Glucose 69 L* 237 H Calcium 9.3 09/07/23 09/07/23 08:20 12:45 Sodium Potassium Chloride Carbon Dioxide Anion Gap BUN Creatinine Est Cr Clr Drug Dosing Est GFR ( Amer) Est GFR (Non-Af Amer) BUN/Creatinine Ratio Glucose POC Glucose 216 H 236 H Calcium Current Inpatient Medications Current Inpatient Medications: Current Inpatient Medications Acetaminophen (Acetaminophen 500 Mg Tab) 1,000 mg PO Q8H PRN PRN Reason: Pain Stop: 10/05/23 07:44 Al Hydrox/Mg Hydrox/Simethicone (Aluminum/Magnesium Susp 30 Ml Udc) 30 ml PO Q4H PRN PRN Reason: GI Upset Stop: 10/04/23 20:46 Amlodipine Besylate (Amlodipine Besylate 5 Mg Tab) 2.5 mg PO PM SACHI Stop: 10/05/23 20:59 Last Admin: 09/06/23 21:04 Dose: 2.5 mg Aspirin (Aspirin 81 Mg Ectab) 81 mg PO DAILY SACHI Stop: 10/05/23 08:59 Last Admin: 09/07/23 08:43 Dose: 81 mg Bismuth Subsalicylate (Bismuth Subsalicylate Liqd 236 Ml) 15 ml PO PRN PRN PRN Reason: Loose Stool Stop: 10/04/23 20:46 Bupropion HCl (Bupropion Xl 150 Mg Tabcr) 150 mg PO QAM [facility] Stop: 10/07/23 08:59 Last Admin: 09/07/23 08:43 Dose: 150 mg Dextrose (Dextrose 50% 50 Ml Syringe) 25 - 50 ml IV UD PRN; Protocol PRN Reason: Hypoglycemia Protocol Stop: 10/05/23 08:29 Docusate Sodium (Docusate Sodium 100 Mg Cap) 100 mg PO BID [facility] Stop: 10/05/23 10:14 Last Admin: 09/07/23 08:44 Dose: 100 mg Glucagon (Glucagon For Inj 1 Mg Vial) 1 mg IM UD PRN; Protocol PRN Reason: Hypoglycemia Protocol Stop: 10/05/23 08:29 Glucose (Glucose 40% Gel 15 Gm Tube) 15 - 30 gm PO UD PRN; Protocol PRN Reason: Hypoglycemia Protocol Stop: 10/05/23 08:29 Glucose (Glucose 10 Tab/Tube) 4 - 8 tab PO UD PRN; Protocol PRN Reason: Hypoglycemia Protocol Stop: 10/05/23 08:29 Hydroxyzine HCl (Hydroxyzine Hcl 25 Mg Tab) 25 mg PO Q4H PRN PRN Reason: Anxiety Stop: 10/04/23 20:46 Last Admin: 09/07/23 06:34 Dose: 25 mg Insulin Aspart (Insulin Aspart Per Unit Charge) 0 units SC DAILY@0730 [facility]; Protocol Stop: 10/05/23 08:29 Last Admin: 09/07/23 09:05 Dose: 4 units Insulin Aspart (Insulin Aspart Per Unit Charge) 0 units SC TID@1130,1630,2100 [facility]; Protocol Stop: 10/07/23 11:29 Last Admin: 09/07/23 13:13 Dose: 4 units Insulin Glargine (Lantus Per Unit Charge) 20 units SC HS [facility]; Protocol Stop: 10/05/23 21:59 Levothyroxine Sodium (Levothyroxine Sodium 112 Mcg Tablet) 112 mcg PO DAILYBB [facility] Stop: 10/05/23 07:59 Last Admin: 09/07/23 08:43 Dose: 112 mcg Lisinopril (Lisinopril 20 Mg Tab) 20 mg PO BID [facility]I Stop: 10/05/23 08:59 Last Admin: 09/07/23 08:44 Dose: 20 mg Magnesium Hydroxide (Magnesium Hydroxide Susp 30 Ml Udc) 30 ml PO DAILY PRN PRN Reason: Constipation Stop: 10/04/23 20:46 Miscellaneous (Carbohydrates For Hypoglycemia ) 15 - 30 gm PO UD PRN PRN Reason: Hypoglycemia Treatment Stop: 10/05/23 08:29 Last Admin: 09/06/23 17:07 Dose: 15 gm Miscellaneous Information (Pharmacy Glycemic Mgmt Consult) 1 each N/A UD PRN; Protocol PRN Reason: Consult Stop: 10/05/23 07:28 Multivitamins (Multivitamin Tab) 1 tab PO DAILY [facility] Stop: 10/05/23 08:59 Last Admin: 09/07/23 08:44 Dose: 1 tab Pravastatin Sodium (Pravastatin Sod 40 Mg Tab) 40 mg PO HS [facility] Stop: 10/05/23 21:59 Last Admin: 09/06/23 21:04 Dose: 40 mg Quetiapine Fumarate (Quetiapine Fumarate 25 Mg Tablet) 25 mg PO HS PRN PRN Reason: Insomnia Stop: 10/05/23 21:59 Last Admin: 09/06/23 21:04 Dose: 25 mg Quetiapine Fumarate (Quetiapine Fumarate 25 Mg Tablet) 12.5 mg PO BID PRN PRN Reason: Anxiety Stop: 10/07/23 20:59 Last Admin: 09/07/23 15:07 Dose: 12.5 mg Sodium Chloride (Sodium Chloride 0.65% Na Soln 45 Ml ([place])) 1 - 2 sprays NA PRN PRN PRN Reason: Nasal Dryness/Congestion Stop: 10/04/23 20:46 Vitamin D (Cholecalciferol 10 Mcg (400 Units) Tab) 10 mcg PO HS [facility] Stop: 10/05/23 21:59 Last Admin: 09/06/23 21:04 Dose: 10 mcg Zolpidem Tartrate (Zolpidem Tartrate 5 Mg Tab) 5 mg PO HS [facility] Stop: 10/05/23 21:59 Last Admin: 09/06/23 21:05 Dose: Not Given Mental Health & Subst Abuse Tx Psychiatrist Name of Psychiatrist: [facility] Psychiatrist's Date Of Appointment With Psychiatric Provider: 09/15/23 Time of Appointment with Psychiatrist: 10:45 AM Psychiatric Appointment Comment: [address] [id number] - complete info packet online prior Therapist Name of Therapist: [facility] Therapist's Date of Therapist Appointment: 09/21/23 Time of Therapist Appointment: 12:15 PM Therapy Appointment Comment: [address] [id number] - complete info packet online prior Post Discharge Appointments Primary Care Physician Name Of Family Doctor/PCP: [facility] PA-C Primary Care Provider Appointment Comment: [address], [address], [place] [address] Contact Information Discharge Discharge Address: [address] [place], [place] [address] [id number]
[2023-09-07] MEDS: LANTUS PER UNIT CHARGE SC SCH (21:35)
[2023-09-08] MEDS: ACETAMINOPHEN 500 MG TAB PO PRN (05:44)
--- NOTE | 2023-09-08 15:03 | Pharmacy Report ---
Pharmacy Glycemic Short Note 2 - Date of Service September 08, 2023 - Glycemic Short BSG Results (Last 24 hours): 09/07/23 09/07/23 09/08/23 17:15 20:12 07:42 POC Glucose 100 H 176 H 132 H 09/08/23 12:24 POC Glucose 127 H OUTPATIENT ANTIDIABETIC REGIMEN: * Basaglar 10 units SC BID * Novolog ACHS SC sliding scale * HbA1c: 7.9% (09/03/23) ASSESSMENT: 09/08: * Patient received 36 units of insulin yesterday, 20 of basal + 16 of bolus. BSGs [phone] mg/dL * Fasting this AM 132 mg/dL- continue 20 units of lantus qPM * Lunch BSG improved with tightened carb ratio in AM- monitor for need to loosen * Continue looser parameters after breakfast 09/07: * Patient received 33 units of insulin yesterday, 15 basal + 18 bolus. BSGs were: [phone] mg/dL. * Dinner hypoglycemia was asymptomatic. Treated with 15 g carbs but refused recheck per nursing notes. Hypoglycemia may have been due to insulin stacking or too much correctional insulin. * Given lunchtime BSGs have been elevated, will tighten Novolog with breakfast only and then loosen Novolog starting at lunchtime throughout the remainder of the evening. Goal is to control lunchtime BSG and prevent hypoglycemia throughout the evening. Goal range will also be loosened starting at lunch. * Fasting BSG did improve to 216 mg/dL today but still remains well above goal. Will increase basal by 30% this evening. 09/06: * Lana received 28 units of insulin yesterday, 12 basal + 16 bolus. BSGs were labile: [phone] mg/dL. Patient was asymptomatic during hypoglycemia that evening and required 15 g carbs to bring BSG up to 80 mg/dL. Of note, L antus was reduced last evening secondary to hypoglycemia. * Fasting BSG is 263 mg/dL this morning. RN denies any snacking/eating prior to check per her knowledge. Patient prefer basal dose to be given at HS. Will increase basal to previously ordered regimen of 15 units. Novolog was loosened this AM given trend down in BSG yesterday evening resulting in hypoglycemia. Ordered and tolerating a T1DM diet. 09/05: * 68 year old admitted to [facility] unit. Pharmacy consulted for glycemic management. Fasting BSG 76 mg/dL - patient previously receiving Lantus 10 units BID from last admission. Received 20 units of basal total yesterday. Discussed with provider and patient would prefer taking long acting insulin at HS. Plan to start Lantus 15 units at HS. Slight reduction warranted as AM fasting <80 mg/dL. Of note, had been on high rate of D5 fluids last admission for hyponatremia so anticipate insulin needs to be less. * Lunch BSG trending upward 372 - discussed with RN and reports taken prior to eating. Does report patient had a small breakfast but carbs consumed were very minimal so no insulin needed. Plan to recheck BSG this afternoon to ensure trending downward. PLAN FOR INPATIENT GLYCEMIC CONTROL: * Basal insulin * Lantus 20 units SC HS * Bolus insulin * NovoLog per scale ACHS or Q6hrs while NPO * Breakfast: Goal Range = 110 mg/dL - 140 mg/dL; Correction Factorbb= 20 mg/dL/unit; Carb ratio of 1 unit per 8 grams CHO consumed * Lunch, Dinner, HS: Goal Range = 120 mg/dL - 160 mg/dL; Correction Factorbb= 45 mg/dL/unit; Carb ratio of 1 unit per 15 grams CHO consumed
--- NOTE | 2023-09-08 17:03 | Psychiatric Progress Note ---
Date of Service September 08, 2023 Impression / Recommendations Impression 68 yo female with a hx of recurrent depression following femur fracture who admittedly took pain medication to self-medicate depression. Her vegetative symptoms along with opioid likely contributed to constipation which she treated inappropriately with excessive water drinking and ingestions of vegetable oil. She has denied SI but has difficulty functioning to the totality of her medical problems and ruminations. A private room remains medically necessary for the safety of self and others given fall risk, need for walker, age >65 with community spread of respiratory viruses, etc. Overall, I spent a total of 37 minutes with this case, including review of chart, review of records, direct evaluation of the patient, counseling the patient, ordering medication, coordination with nursing, and documentation. (1) Major depressive disorder, recurrent severe without psychotic features: Plan 09/08/23: We are going to continue with her current level of observation and precautions. We eliminated this Seroquel and hydroxyzine. We decided to try some trazodone at bedtime to see if that might help. We will start with 50 mg at bedtime as needed and she can repeat that once after 1 hour but before 3 AM. I reviewed the uses, side effects, and time course and she gave informed consent. I encouraged her to keep going to groups and activities, maintain good hygiene, and try not to isolate. She is definitely looking better, more relaxed with better eye contact and not looking so depressed. We are starting to work on discharge planning and hope to get her back to her family in the next few days if she continues to improve like this. 09/07/23: We will continue with her current level of observation and precautions. I encouraged her to take part in the therapeutic milieu, attend groups and activities, maintain good hygiene, and try not to isolate. I used a behavioral activation approach there. We discussed options for her anxiety and decided to try a small dose of Seroquel during the day as needed for anxiety. I wrote for 12.5 mg twice daily as needed anxiety. She is now aware that she can take an extra dose of 25 mg of Seroquel during the night before 3 AM if she needs it. We also talked about her upcoming living situation and how we need to make sure she is functioning well enough that she is not going to be a burden to her [id number]. The patient worries a lot about being a burden and not being able to be at home. We will continue with the Wellbutrin XL to try to help her mood. Inventory Assets Strengths: help seeking, supportive family Needs: improve coping skills, safety plan for medications Suicide Risk Level Suicide Risk Level: Low (q15 min observation checks) Risk Factors Assessment : Yes Do You Have Access To A Gun?: No Health Problems: Yes Mental Health Diagnoses: Yes Previous Attempt: No Family History of Suicide: Yes Previous Psychiatric Hospitalization: Yes Protective Factors Assessment Supportive Family: Yes Interval History Identifying Information LANA DICKENS is a 68-year-old F from [place], has a history of depression, and was admitted on 09/04/23 21:28 on a 201 voluntary commitment for inability to function. She was admitted to the medical floor on 09/02 for hyponatremia and transferred upon medical clearance. Chief Complaint "I broke my femur." Review of Systems Sleep Information Total Hours of Sleep: 4.25 Sleep Comments: Pt recived Seroquel 25mg Meal Information Percent Meal Consumed - Breakfast: 50 Percent Meal Consumed - Lunch: 75 Percent Meal Consumed - Dinner: 50 Subjective Subjective Today I met with the patient, received nursing report, and reviewed her chart. We also had a multidisciplinary treatment team meeting to discuss her care. Lana is in our hospital after she had broken her femur and became depressed and anxious. This led to poor sleep and suicidal ideation. Staff report that she had a bad night last night and did not sleep much, approximately 4.25 hours. She has been irritable. She was also having some upset stomach this morning and was concerned about possible diverticulitis. Our social workers are working on outpatient services but we need to make sure they do not overlap with her orthopedic surgeon appointment next Wednesday. When I met with the patient today, she was somewhat upset that her stomach has been hurting for quite a while but then it went away a little bit before lunch. She did not sleep well with the help of the Seroquel and wants to get rid of that and the hydroxyzine. She has been trying to spend more time around her peers today and that seems to be helping. She also Baldemar was much better groomed this afternoon. She says that she was only having some suicidal thoughts when the pain was getting bad but otherwise she is doing much better she said. She denies homicidal thoughts. Today, she said that she had her first "decent" lunch. She has been communicating with her [id number] and her daughter. He says that sometimes she gets hungry at night. Physical Exam Psychiatric Orientation: alert and oriented x 3 Apperance: appropriately dressed and appropriately groomed Eye Contact: good eye contact Motor Behavior: no abnormal motor movements Speech: normal rate/rhythm/volume of speech Affect: + depressed affect and + anxious affect Mood: + depressed mood, + anxious mood and + irritable mood Thought Process: goal directed thought process Thought Content: reality based without delusions Suicidal Thoughts: denies suicidal thoughts Homicidal Thoughts: denies homicidal thoughts Hallucinations: no auditory hallucinations and no visual hallucinations Cognition: attention grossly intact and language grossly intact Estimated Intelligence: consistent with education level Insight: + limited insight Judgment: + limited judgement Vital Signs (Past 24 Hours) Last Vital Signs Temp 36.9 C 09/08/23 06:37 Pulse 76 09/08/23 06:38 Resp 18 09/08/23 06:37 BP 101/65 09/08/23 06:38 Pulse Ox 95 09/05/23 06:23 O2 Del Method Room Air 09/05/23 06:23 Results & Data ([facility]) Laboratory Results Laboratory Results - last 24 hr 09/07/23 09/07/23 09/08/23 17:15 20:12 07:42 POC Glucose 100 H 176 H 132 H 09/08/23 12:24 POC Glucose 127 H Current Inpatient Medications Current Inpatient Medications: Current Inpatient Medications Acetaminophen (Acetaminophen 500 Mg Tab) 1,000 mg PO Q8H PRN PRN Reason: Pain Stop: 10/05/23 07:44 Last Admin: 09/08/23 05:44 Dose: 1,000 mg Al Hydrox/Mg Hydrox/Simethicone (Aluminum/Magnesium Susp 30 Ml Udc) 30 ml PO Q4H PRN PRN Reason: GI Upset Stop: 10/04/23 20:46 Amlodipine Besylate (Amlodipine Besylate 5 Mg Tab) 2.5 mg PO PM SACHI Stop: 10/05/23 20:59 Last Admin: 09/07/23 21:12 Dose: 2.5 mg Aspirin (Aspirin 81 Mg Ectab) 81 mg PO DAILY SACHI Stop: 10/05/23 08:59 Last Admin: 09/08/23 08:35 Dose: 81 mg Bismuth Subsalicylate (Bismuth Subsalicylate Liqd 236 Ml) 15 ml PO PRN PRN PRN Reason: Loose Stool Stop: 10/04/23 20:46 Bupropion HCl (Bupropion Xl 150 Mg Tabcr) 150 mg PO QAM [facility] Stop: 10/07/23 08:59 Last Admin: 09/08/23 08:35 Dose: 150 mg Dextrose (Dextrose 50% 50 Ml Syringe) 25 - 50 ml IV UD PRN; Protocol PRN Reason: Hypoglycemia Protocol Stop: 10/05/23 08:29 Docusate Sodium (Docusate Sodium 100 Mg Cap) 100 mg PO BID [facility] Stop: 10/05/23 10:14 Last Admin: 09/08/23 08:35 Dose: 100 mg Glucagon (Glucagon For Inj 1 Mg Vial) 1 mg IM UD PRN; Protocol PRN Reason: Hypoglycemia Protocol Stop: 10/05/23 08:29 Glucose (Glucose 40% Gel 15 Gm Tube) 15 - 30 gm PO UD PRN; Protocol PRN Reason: Hypoglycemia Protocol Stop: 10/05/23 08:29 Glucose (Glucose 10 Tab/Tube) 4 - 8 tab PO UD PRN; Protocol PRN Reason: Hypoglycemia Protocol Stop: 10/05/23 08:29 Insulin Aspart (Insulin Aspart Per Unit Charge) 0 units SC DAILY@0730 [facility]; Protocol Stop: 10/05/23 08:29 Last Admin: 09/08/23 08:53 Dose: 3 units Insulin Aspart (Insulin Aspart Per Unit Charge) 0 units SC TID@1130,1630,2100 [facility]; Protocol Stop: 10/07/23 11:29 Last Admin: 09/08/23 13:09 Dose: 4 units Insulin Glargine (Lantus Per Unit Charge) 20 units SC HS [facility]; Protocol Stop: 10/05/23 21:59 Last Admin: 09/07/23 21:35 Dose: 20 units Levothyroxine Sodium (Levothyroxine Sodium 112 Mcg Tablet) 112 mcg PO DAILYBB [facility] Stop: 10/05/23 07:59 Last Admin: 09/08/23 08:35 Dose: 112 mcg Lisinopril (Lisinopril 20 Mg Tab) 20 mg PO BID [facility] Stop: 10/05/23 08:59 Last Admin: 09/08/23 08:35 Dose: 20 mg Magnesium Hydroxide (Magnesium Hydroxide Susp 30 Ml Udc) 30 ml PO DAILY PRN PRN Reason: Constipation Stop: 10/04/23 20:46 Miscellaneous (Carbohydrates For Hypoglycemia ) 15 - 30 gm PO UD PRN PRN Reason: Hypoglycemia Treatment Stop: 10/05/23 08:29 Last Admin: 09/06/23 17:07 Dose: 15 gm Miscellaneous Information (Pharmacy Glycemic Mgmt Consult) 1 each N/A UD PRN; Protocol PRN Reason: Consult Stop: 10/05/23 07:28 Multivitamins (Multivitamin Tab) 1 tab PO DAILY SACHI Stop: 10/05/23 08:59 Last Admin: 09/08/23 08:36 Dose: 1 tab Pravastatin Sodium (Pravastatin Sod 40 Mg Tab) 40 mg PO HS [facility]ACHI Stop: 10/05/23 21:59 Last Admin: 09/07/23 21:14 Dose: 40 mg Sodium Chloride (Sodium Chloride 0.65% Na Soln 45 Ml ([place])) 1 - 2 sprays NA PRN PRN PRN Reason: Nasal Dryness/Congestion Stop: 10/04/23 20:46 Trazodone HCl (Trazodone Hcl 50 Mg Tab) 50 mg PO HS PRN PRN Reason: Insomnia Stop: 10/08/23 21:59 Vitamin D (Cholecalciferol 10 Mcg (400 Units) Tab) 10 mcg PO HS [facility]ACHI Stop: 10/05/23 21:59 Last Admin: 09/07/23 21:14 Dose: 10 mcg Zolpidem Tartrate (Zolpidem Tartrate 5 Mg Tab) 5 mg PO HS [facility] Stop: 10/05/23 21:59 Last Admin: 09/07/23 21:17 Dose: 5 mg Mental Health & Subst Abuse Tx Psychiatrist Name of Psychiatrist: [facility] Psychiatrist's Date Of Appointment With Psychiatric Provider: 09/15/23 Time of Appointment with Psychiatrist: 10:45 AM Psychiatric Appointment Comment: [address] [id number] - complete info packet online prior Therapist Name of Therapist: [facility] Therapist's Date of Therapist Appointment: 09/21/23 Time of Therapist Appointment: 12:15 PM Therapy Appointment Comment: [address] [id number] - complete info packet online prior Post Discharge Appointments Primary Care Physician Name Of Family Doctor/PCP: [facility] - Heather Heath PA-C Primary Care Provider Appointment Comment: [address], [address], [place] [address] Contact Information Discharge Discharge Address: [address] [place] [id number]
[2023-09-08] MEDS: traZODone HCL 50 MG TAB PO PRN (21:38)
[2023-09-09 06:44] VITALS: RESP 16; O2SAT 97
[2023-09-09] MEDS: MAGNESIUM HYDROXIDE SUSP 30 ML UDC PO PRN (13:19)
--- NOTE | 2023-09-09 16:23 | Psychiatric Progress Note ---
Date of Service September 09, 2023 Impression / Recommendations Impression 68 yo female with a hx of recurrent depression following femur fracture who admittedly took pain medication to self-medicate depression. Her vegetative symptoms along with opioid likely contributed to constipation which she treated inappropriately with excessive water drinking and ingestions of vegetable oil. She has denied SI but has difficulty functioning to the totality of her medical problems and ruminations. A private room remains medically necessary for the safety of self and others given fall risk, need for walker, age >65 with community spread of respiratory viruses, etc. Overall, I spent a total of 39 minutes with this case, including review of chart, review of records, direct evaluation of the patient, counseling the patient, ordering medication, coordination with nursing, and documentation. (1) Major depressive disorder, recurrent severe without psychotic features: Plan 09/09/23: The patient has finally had a good night sleep which I think will help her mood dramatically. I want to see how she does throughout the day today with her participation and see if she continues to maintain her hygiene. I am going to change the trazodone slightly and combine the 2 doses into 1 at 100 mg that she can take at bedtime. I do not want her to take it so late and be sedated throughout the day. We are setting up a family meeting for either Wednesday morning or may be by phone on Wednesday. I would like to have at least a couple of days in a row of her doing better before I am going to feel comfortable discharging her home. 09/08/23: We are going to continue with her current level of observation and precautions. We eliminated this Seroquel and hydroxyzine. We decided to try some trazodone at bedtime to see if that might help. We will start with 50 mg at bedtime as needed and she can repeat that once after 1 hour but before 3 AM. I reviewed the uses, side effects, and time course and she gave informed consent. I encouraged her to keep going to groups and activities, maintain good hygiene, and try not to isolate. She is definitely looking better, more relaxed with better eye contact and not looking so depressed. We are starting to work on discharge planning and hope to get her back to her family in the next few days if she continues to improve like this. 09/07/23: We will continue with her current level of observation and precautions. I encouraged her to take part in the therapeutic milieu, attend groups and activities, maintain good hygiene, and try not to isolate. I used a behavioral activation approach there. We discussed options for her anxiety and decided to try a small dose of Seroquel during the day as needed for anxiety. I wrote for 12.5 mg twice daily as needed anxiety. She is now aware that she can take an extra dose of 25 mg of Seroquel during the night before 3 AM if she needs it. We also talked about her upcoming living situation and how we need to make sure she is functioning well enough that she is not going to be a burden to her [id number]. The patient worries a lot about being a burden and not being able to be at home. We will continue with the Wellbutrin XL to try to help her mood. Inventory Assets Strengths: help seeking, supportive family Needs: improve coping skills, safety plan for medications Suicide Risk Level Suicide Risk Level: Low (q15 min observation checks) Risk Factors Assessment : Yes Do You Have Access To A Gun?: No Health Problems: Yes Mental Health Diagnoses: Yes Previous Attempt: No Family History of Suicide: Yes Previous Psychiatric Hospitalization: Yes Protective Factors Assessment Supportive Family: Yes Interval History Identifying Information LANA DICKENS is a 68-year-old F from [place], has a history of depression, and was admitted on 09/04/23 21:28 on a 201 voluntary commitment for inability to function. She was admitted to the medical floor on 09/02 for hyponatremia and transferred upon medical clearance. Chief Complaint "I finally got some sleep." Review of Systems Sleep Information Total Hours of Sleep: 5.75 Sleep Comments: Pt recived Seroquel 25mg Meal Information Percent Meal Consumed - Breakfast: 50 Percent Meal Consumed - Lunch: 50 Percent Meal Consumed - Dinner: 100 Subjective Subjective Today I met with the patient, received nursing report, and reviewed her chart. I also had a multidisciplinary meeting with nursing and social work. Lana is in our hospital due to concerns of suicidal ideation, depression, and anxiety. Staff report that she ate well yesterday and attended groups pretty reliably. She has been more pleasant and slept a lot better last night. When I met with her this morning, she denied suicidal or homicidal thoughts. She feels like her mood is "better than it has been." She was finally able to get some sleep with the help of trazodone, but took a second dose around 3 AM and was still feeling somewhat sedated when I met with her around 9 AM. She did communicate with her daughter yesterday on the phone and that went well. She still feels like a burden to her family and is somewhat ashamed of it. Physical Exam Psychiatric Orientation: alert and oriented x 3 Apperance: appropriately dressed and appropriately groomed Eye Contact: good eye contact Motor Behavior: no abnormal motor movements Speech: normal rate/rhythm/volume of speech Affect: + constricted affect (brighter than yesterday) Mood: + depressed mood, + anxious mood and + irritable mood Thought Process: goal directed thought process Thought Content: reality based without delusions Suicidal Thoughts: denies suicidal thoughts Homicidal Thoughts: denies homicidal thoughts Hallucinations: no auditory hallucinations and no visual hallucinations Cognition: attention grossly intact and language grossly intact Estimated Intelligence: consistent with education level Insight: + limited insight Judgment: + limited judgement Vital Signs (Past 24 Hours) Last Vital Signs Temp 37.1 C 09/09/23 06:00 Pulse 82 09/09/23 06:00 Resp 16 09/09/23 06:00 BP 117/73 09/09/23 06:00 Pulse Ox 97 09/09/23 06:00 O2 Del Method Room Air 09/09/23 06:00 Results & Data ([facility]) Laboratory Results Laboratory Results - last 24 hr 09/08/23 09/08/23 09/09/23 17:14 20:29 08:18 POC Glucose 155 H 202 H 285 H 09/09/23 11:40 POC Glucose 199 H Current Inpatient Medications Current Inpatient Medications: Current Inpatient Medications Acetaminophen (Acetaminophen 500 Mg Tab) 1,000 mg PO Q8H PRN PRN Reason: Pain Stop: 10/05/23 07:44 Last Admin: 09/09/23 10:02 Dose: 1,000 mg Al Hydrox/Mg Hydrox/Simethicone (Aluminum/Magnesium Susp 30 Ml Udc) 30 ml PO Q4H PRN PRN Reason: GI Upset Stop: 10/04/23 20:46 Amlodipine Besylate (Amlodipine Besylate 5 Mg Tab) 2.5 mg PO PM SACHI Stop: 10/05/23 20:59 Last Admin: 09/08/23 21:36 Dose: 2.5 mg Aspirin (Aspirin 81 Mg Ectab) 81 mg PO DAILY [facility] Stop: 10/05/23 08:59 Last Admin: 09/09/23 08:41 Dose: 81 mg Bismuth Subsalicylate (Bismuth Subsalicylate Liqd 236 Ml) 15 ml PO PRN PRN PRN Reason: Loose Stool Stop: 10/04/23 20:46 Bupropion HCl (Bupropion Xl 150 Mg Tabcr) 150 mg PO QAM [facility] Stop: 10/07/23 08:59 Last Admin: 09/09/23 08:40 Dose: 150 mg Dextrose (Dextrose 50% 50 Ml Syringe) 25 - 50 ml IV UD PRN; Protocol PRN Reason: Hypoglycemia Protocol Stop: 10/05/23 08:29 Docusate Sodium (Docusate Sodium 100 Mg Cap) 100 mg PO BID [facility] Stop: 10/05/23 10:14 Last Admin: 09/09/23 08:41 Dose: 100 mg Glucagon (Glucagon For Inj 1 Mg Vial) 1 mg IM UD PRN; Protocol PRN Reason: Hypoglycemia Protocol Stop: 10/05/23 08:29 Glucose (Glucose 40% Gel 15 Gm Tube) 15 - 30 gm PO UD PRN; Protocol PRN Reason: Hypoglycemia Protocol Stop: 10/05/23 08:29 Glucose (Glucose 10 Tab/Tube) 4 - 8 tab PO UD PRN; Protocol PRN Reason: Hypoglycemia Protocol Stop: 10/05/23 08:29 Insulin Aspart (Insulin Aspart Per Unit Charge) 0 units SC DAILY@0730 [facility]; Protocol Stop: 10/05/23 08:29 Last Admin: 09/09/23 09:05 Dose: 12 units Insulin Aspart (Insulin Aspart Per Unit Charge) 0 units SC TID@1130,1630,2100 [facility]; Protocol Stop: 10/07/23 11:29 Last Admin: 09/09/23 13:02 Dose: 5 units Insulin Glargine (Lantus Per Unit Charge) 20 units SC HS [facility]; Protocol Stop: 10/05/23 21:59 Last Admin: 09/08/23 20:48 Dose: 20 units Levothyroxine Sodium (Levothyroxine Sodium 112 Mcg Tablet) 112 mcg PO DAILYBB [facility] Stop: 10/05/23 07:59 Last Admin: 09/09/23 08:17 Dose: 112 mcg Lisinopril (Lisinopril 20 Mg Tab) 20 mg PO BID SACHI Stop: 10/05/23 08:59 Last Admin: 09/09/23 08:40 Dose: 20 mg Magnesium Hydroxide (Magnesium Hydroxide Susp 30 Ml Udc) 30 ml PO DAILY PRN PRN Reason: Constipation Stop: 10/04/23 20:46 Last Admin: 09/09/23 13:19 Dose: 30 ml Miscellaneous (Carbohydrates For Hypoglycemia ) 15 - 30 gm PO UD PRN PRN Reason: Hypoglycemia Treatment Stop: 10/05/23 08:29 Last Admin: 09/06/23 17:07 Dose: 15 gm Miscellaneous Information (Pharmacy Glycemic Mgmt Consult) 1 each N/A UD PRN; Protocol PRN Reason: Consult Stop: 10/05/23 07:28 Multivitamins (Multivitamin Tab) 1 tab PO DAILY SACHI Stop: 10/05/23 08:59 Last Admin: 09/09/23 08:41 Dose: 1 tab Pravastatin Sodium (Pravastatin Sod 40 Mg Tab) 40 mg PO HS SACHI Stop: 10/05/23 21:59 Last Admin: 09/08/23 21:37 Dose: 40 mg Sodium Chloride (Sodium Chloride 0.65% Na Soln 45 Ml (Geiger)) 1 - 2 sprays NA PRN PRN PRN Reason: Nasal Dryness/Congestion Stop: 10/04/23 20:46 Trazodone HCl (Trazodone Hcl 100 Mg Tab) 100 mg PO HS PRN PRN Reason: Insomnia Stop: 10/08/23 21:59 Vitamin D (Cholecalciferol 10 Mcg (400 Units) Tab) 10 mcg PO HS SACHI Stop: 10/05/23 21:59 Last Admin: 09/08/23 21:37 Dose: 10 mcg Zolpidem Tartrate (Zolpidem Tartrate 5 Mg Tab) 5 mg PO HS SACHI Stop: 10/05/23 21:59 Last Admin: 09/08/23 21:38 Dose: 5 mg Mental Health & Subst Abuse Tx Psychiatrist Name of Psychiatrist: [facility] Psychiatrist's Date Of Appointment With Psychiatric Provider: 09/16/23 Time of Appointment with Psychiatrist: 10:15 AM check in Psychiatric Appointment Comment: [address] [facility], [facility] [address] - complete info packet online prior Therapist Name of Therapist: [facility] Therapist's Date of Therapist Appointment: 09/21/23 Time of Therapist Appointment: 12:15 PM Therapy Appointment Comment: [address], [place] [address] - complete info packet online prior Post Discharge Appointments Primary Care Physician Name Of Family Doctor/PCP: [facility] - Heather Heath PA-C Primary Care Date of Future Appointment with PCP: 09/24/23 Time of Appointment with PCP: 10:45 AM Provider Appointment Comment: [address], [address], [place] [address] Contact Information Discharge Discharge Address: [address] [place], [place] [id number] [id number]
[2023-09-09] MEDS: traZODone HCL 100 MG TAB PO PRN (21:12)
[2023-09-10] MEDS ORDERED: LANTUS PER UNIT CHARGE SC SCH (09:00)
--- NOTE | 2023-09-10 13:11 | Pharmacy Report ---
Pharmacy Glycemic Short Note 2 - Date of Service September 10, 2023 - Glycemic Short BSG Results (Last 24 hours): 09/09/23 09/09/23 09/10/23 17:11 20:30 08:31 POC Glucose 81 78 176 H 09/10/23 12:22 POC Glucose 251 H OUTPATIENT ANTIDIABETIC REGIMEN: * Basaglar 10 units SC BID * Novolog ACHS SC sliding scale * HbA1c: 7.9% (09/03/23) ASSESSMENT: 09/10: * Pt rec'd 44 units of insulin yesterday (20 of basal, 24 of bolus). BSGs were: 285, 199, 81, 78 * Novolog parameters adjusted slightly this morning to provide less carb coverage throughout the day, d/t downward trend of BSGs yesterday. * Pt continues to require tighter coverage with breakfast and looser coverage throughout the day, with the lowest BSG occuring at dinnertime most days. * Will continue to follow and adjust regimen as indicated. 09/08: * Patient received 36 units of insulin yesterday, 20 of basal + 16 of bolus. BSGs [phone] mg/dL * Fasting this AM 132 mg/dL- continue 20 units of lantus qPM * Lunch BSG improved with tightened carb ratio in AM- monitor for need to loosen * Continue looser parameters after breakfast 09/07: * Patient received 33 units of insulin yesterday, 15 basal + 18 bolus. BSGs were: 188-544-11-237 mg/dL. * Dinner hypoglycemia was asymptomatic. Treated with 15 g carbs but refused recheck per nursing notes. Hypoglycemia may have been due to insulin stacking or too much correctional insulin. * Given lunchtime BSGs have been elevated, will tighten Novolog with breakfast only and then loosen Novolog starting at lunchtime throughout the remainder of the evening. Goal is to control lunchtime BSG and prevent hypoglycemia throughout the evening. Goal range will also be loosened starting at lunch. * Fasting BSG did improve to 216 mg/dL today but still remains well above goal. Will increase basal by 30% this evening. 09/06: * Lana received 28 units of insulin yesterday, 12 basal + 16 bolus. BSGs were labile: [phone] mg/dL. Patient was asymptomatic during hypoglycemia that evening and required 15 g carbs to bring BSG up to 80 mg/dL. Of note, Lantus was reduced last evening secondary to hypoglycemia. * Fasting BSG is 263 mg/dL this morning. RN denies any snacking/eating prior to check per her knowledge. Patient prefer basal dose to be given at HS. Will increase basal to previously ordered regimen of 15 units. Novolog was loosened this AM given trend down in BSG yesterday evening resulting in hypoglycemia. Ordered and tolerating a T1DM diet. 09/05: * 68 year old admitted to [facility] unit. Pharmacy consulted for glycemic management. Fasting BSG 76 mg/dL - patient previously receiving Lantus 10 units BID from last admission. Received 20 units of basal total yesterday. Discussed with provider and patient would prefer taking long acting insulin at HS. Plan to start Lantus 15 units at HS. Slight reduction warranted as AM fasting <80 mg/dL. Of note, had been on high rate of D5 fluids last admission for hyponatremia so anticipate insulin needs to be less. * Lunch BSG trending upward 372 - discussed with RN and reports taken prior to eating. Does report patient had a small breakfast but carbs consumed were very minimal so no insulin needed. Plan to recheck BSG this afternoon to ensure trending downward. PLAN FOR INPATIENT GLYCEMIC CONTROL: * Basal insulin * Lantus 20 units SC HS * Bolus insulin * NovoLog per scale ACHS or Q6hrs while NPO * Breakfast: Goal Range = 110 mg/dL - 140 mg/dL; Correction Factorbb= 20 mg/dL/unit; Carb ratio of 1 unit per 8 grams CHO consumed * Lunch, Dinner, HS: Goal Range = 120 mg/dL - 160 mg/dL; Correction Factorbb= 50 mg/dL/unit; Carb ratio of 1 unit per 14 grams CHO consumed
--- NOTE | 2023-09-10 13:32 | Psychiatric Progress Note ---
Date of Service September 10, 2023 Impression / Recommendations Impression 68 yo female with a hx of recurrent depression following femur fracture who admittedly took pain medication to self-medicate depression. Her vegetative symptoms along with opioid likely contributed to constipation which she treated inappropriately with excessive water drinking and ingestions of vegetable oil. She has denied SI but has difficulty functioning to the totality of her medical problems and ruminations. A private room remains medically necessary for the safety of self and others given fall risk, need for walker, age >65 with community spread of respiratory viruses, etc. Overall, I spent a total of 37 minutes with this case, including review of chart, review of records, direct evaluation of the patient, counseling the patient, ordering medication, coordination with nursing, and documentation. (1) Major depressive disorder, recurrent severe without psychotic features: Plan 09/10/23: The patient continues to improve. Affect is brightening. She is starting to think about her neighbor who has depression and needs some support. Family meeting is tomorrow and she will likely discharge if it goes well. We will continue the trazodone as is. I made sure the zolpidem is gone. 09/09/23: The patient has finally had a good night sleep which I think will help her mood dramatically. I want to see how she does throughout the day today with her participation and see if she continues to maintain her hygiene. I am going to change the trazodone slightly and combine the 2 doses into 1 at 100 mg that she can take at bedtime. I do not want her to take it so late and be sedated throughout the day. We are setting up a family meeting for either Wednesday morning or may be by phone on Wednesday. I would like to have at least a couple of days in a row of her doing better before I am going to feel comfortable discharging her home. 09/08/23: We are going to continue with her current level of observation and precautions. We eliminated this Seroquel and hydroxyzine. We decided to try some trazodone at bedtime to see if that might help. We will start with 50 mg at bedtime as needed and she can repeat that once after 1 hour but before 3 AM. I reviewed the uses, side effects, and time course and she gave informed consent. I encouraged her to keep going to groups and activities, maintain good hygiene, and try not to isolate. She is definitely looking better, more relaxed with better eye contact and not looking so depressed. We are starting to work on discharge planning and hope to get her back to her family in the next few days if she continues to improve like this. 09/07/23: We will continue with her current level of observation and precautions. I encouraged her to take part in the therapeutic milieu, attend groups and acti vities, maintain good hygiene, and try not to isolate. I used a behavioral activation approach there. We discussed options for her anxiety and decided to try a small dose of Seroquel during the day as needed for anxiety. I wrote for 12.5 mg twice daily as needed anxiety. She is now aware that she can take an extra dose of 25 mg of Seroquel during the night before 3 AM if she needs it. We also talked about her upcoming living situation and how we need to make sure she is functioning well enough that she is not going to be a burden to her [id number]. The patient worries a lot about being a burden and not being able to be at home. We will continue with the Wellbutrin XL to try to help her mood. Inventory Assets Strengths: help seeking, supportive family Needs: improve coping skills, safety plan for medications Suicide Risk Level Suicide Risk Level: Low (q15 min observation checks) Risk Factors Assessment : Yes Do You Have Access To A Gun?: No Health Problems: Yes Mental Health Diagnoses: Yes Previous Attempt: No Family History of Suicide: Yes Previous Psychiatric Hospitalization: Yes Protective Factors Assessment Supportive Family: Yes Interval History Identifying Information LANA DICKENS is a 68-year-old F from [place], has a history of depression, and was admitted on 09/04/23 21:28 on a 201 voluntary commitment for inability to function. She was admitted to the medical floor on 09/02 for hyponatremia and transferred upon medical clearance. Chief Complaint "I'm doing better." Review of Systems Sleep Information Total Hours of Sleep: 6.45 Sleep Comments: Trazodone PRN Meal Information Percent Meal Consumed - Breakfast: 100 Percent Meal Consumed - Lunch: 100 Percent Meal Consumed - Dinner: 75 Nutrition Comment: Breakfast for 09/09/23 Subjective Subjective Today I met with the patient, received nursing report, and reviewed her chart. We also had a multidisciplinary treatment team meeting to discuss her care. Lana is in our hospital due to severe depression and anxiety along with suicidal ideation associated with being incapacitated by broken left hip. Staff report that she slept well. She has had more interactions with peers and is attending groups and activities much more reliably. We are setting up a family meeting for Wednesday, every night. 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 She already had a orthopedic surgeon appointment on September 15 and is hoping to be able to be more active after th at. When I met with her this morning, she was definitely in a better mood. She is making good eye contact and much brighter in her affect. She was talking about how she had spoken with her [id number] this morning and that the [id number] is going to be taking her to her appointments. She is tolerating the trazodone for sleep very well along with her antidepressant. She denies any suicidal or homicidal thoughts. She is eating better. She feels more mobile. She is not having any excessive pain like she had a couple of days ago. Physical Exam Psychiatric Orientation: alert and oriented x 3 Apperance: appropriately dressed and appropriately groomed Eye Contact: good eye contact Motor Behavior: no abnormal motor movements Speech: normal rate/rhythm/volume of speech Affect: + depressed affect (less depressed than yesterday) and + anxious affect Mood: + depressed mood, + anxious mood and + irritable mood Thought Process: goal directed thought process Thought Content: reality based without delusions Suicidal Thoughts: denies suicidal thoughts Homicidal Thoughts: denies homicidal thoughts Hallucinations: no auditory hallucinations and no visual hallucinations Cognition: attention grossly intact and language grossly intact Estimated Intelligence: consistent with education level Insight: + limited insight Judgment: + limited judgement Vital Signs (Past 24 Hours) Last Vital Signs Temp 36.4 C L 09/10/23 05:59 Pulse 76 09/10/23 06:00 Resp 16 09/10/23 05:59 BP 114/72 09/10/23 06:00 Pulse Ox 97 09/09/23 06:00 O2 Del Method Room Air 09/09/23 06:00 Results & Data ([facility]) Laboratory Results Laboratory Results - last 24 hr 09/09/23 09/09/23 09/10/23 17:11 20:30 08:31 POC Glucose 81 78 176 H 09/10/23 12:22 POC Glucose 251 H Current Inpatient Medications Current Inpatient Medications: Current Inpatient Medications Acetaminophen (Acetaminophen 500 Mg Tab) 1,000 mg PO Q8H PRN PRN Reason: Pain Stop: 10/05/23 07:44 Last Admin: 09/09/23 10:02 Dose: 1,000 mg Al Hydrox/Mg Hydrox/Simethicone (Aluminum/Magnesium Susp 30 Ml Udc) 30 ml PO Q4H PRN PRN Reason: GI Upset Stop: 10/04/23 20:46 Amlodipine Besylate (Amlodipine Besylate 5 Mg Tab) 2.5 mg PO PM SACHI Stop: 10/05/23 20:59 Last Admin: 09/09/23 21:13 Dose: 2.5 mg Aspirin (Aspirin 81 Mg Ectab) 81 mg PO DAILY SACHI Stop: 10/05/23 08:59 Last Admin: 09/10/23 08:38 Dose: 81 mg Bismuth Subsalicylate (Bismuth Subsalicylate Liqd 236 Ml) 15 ml PO PRN PRN PRN Reason: Loose Stool Stop: 10/04/23 20:46 Bupropion HCl (Bupropion Xl 150 Mg Tabcr) 150 mg PO QAM SACHI Stop: 10/07/23 08:59 Last Admin: 09/10/23 08:38 Dose: 150 mg Dextrose (Dextrose 50% 50 Ml Syringe) 25 - 50 ml IV UD PRN; Protocol PRN Reason: Hypoglycemia Protocol Stop: 10/05/23 08:29 Docusate Sodium (Docusate Sodium 100 Mg Cap) 100 mg PO BID SACHI Stop: 10/05/23 10:14 Last Admin: 09/10/23 08:38 Dose: 100 mg Glucagon (Glucagon For Inj 1 Mg Vial) 1 mg IM UD PRN; Protocol PRN Reason: Hypoglycemia Protocol Stop: 10/05/23 08:29 Glucose (Glucose 40% Gel 15 Gm Tube) 15 - 30 gm PO UD PRN; Protocol PRN Reason: Hypoglycemia Protocol Stop: 10/05/23 08:29 Glucose (Glucose 10 Tab/Tube) 4 - 8 tab PO UD PRN; Protocol PRN Reason: Hypoglycemia Protocol Stop: 10/05/23 08:29 Insulin Aspart (Insulin Aspart Per Unit Charge) 0 units SC DAILY@0730 REPLACED BY [facility]; Protocol Stop: 10/05/23 08:29 Last Admin: 09/10/23 09:09 Dose: 10 units Insulin Aspart (Insulin Aspart Per Unit Charge) 0 units SC TID@1130,1630,2100 REPLACED BY [facility]; Protocol Stop: 10/07/23 11:29 Last Admin: 09/10/23 12:51 Dose: 10 units Insulin Glargine (Lantus Per Unit Charge) 20 units SC HS REPLACED BY [facility]; Protocol Stop: 10/05/23 21:59 Last Admin: 09/09/23 21:24 Dose: 20 units Levothyroxine Sodium (Levothyroxine Sodium 112 Mcg Tablet) 112 mcg PO DAILYBB REPLACED BY [facility] Stop: 10/05/23 07:59 Last Admin: 09/10/23 08:38 Dose: 112 mcg Lisinopril (Lisinopril 20 Mg Tab) 20 mg PO BID REPLACED BY [facility] Stop: 10/05/23 08:59 Last Admin: 09/10/23 08:38 Dose: 20 mg Magnesium Hydroxide (Magnesium Hydroxide Susp 30 Ml Udc) 30 ml PO DAILY PRN PRN Reason: Constipation Stop: 10/04/23 20:46 Last Admin: 09/09/23 13:19 Dose: 30 ml Miscellaneous (Carbohydrates For Hypoglycemia ) 15 - 30 gm PO UD PRN PRN Reason: Hypoglycemia Treatment Stop: 10/05/23 08:29 Last Admin: 09/06/23 17:07 Dose: 15 gm Miscellaneous Information (Pharmacy Glycemic Mgmt Consult) 1 each N/A UD PRN; Protocol PRN Reason: Consult Stop: 10/05/23 07:28 Multivitamins (Multivitamin Tab) 1 tab PO DAILY REPLACED BY [facility] Stop: 10/05/23 08:59 Last Admin: 09/10/23 08:38 Dose: 1 tab Pravastatin Sodium (Pravastatin Sod 40 Mg Tab) 40 mg PO HS REPLACED BY [facility] Stop: 10/05/23 21:59 Last Admin: 09/09/23 21:13 Dose: 40 mg Sodium Chloride (Sodium Chloride 0.65% Na Soln 45 Ml ([place])) 1 - 2 sprays NA PRN PRN PRN Reason: Nasal Dryness/Congestion Stop: 10/04/23 20:46 Trazodone HCl (Trazodone Hcl 100 Mg Tab) 100 mg PO HS PRN PRN Reason: Insomnia Stop: 10/08/23 21:59 Last Admin: 09/09/23 21:12 Dose: 100 mg Vitamin D (Cholecalciferol 10 Mcg (400 Units) Tab) 10 mcg PO HS SACHI Stop: 10/05/23 21:59 Last Admin: 09/09/23 21:12 Dose: 10 mcg Zolpidem Tartrate (Zolpidem Tartrate 5 Mg Tab) 5 mg PO HS SACHI Stop: 10/05/23 21:59 Last Admin: 09/09/23 21:31 Dose: Not Given Mental Health & Subst Abuse Tx Psychiatrist Name of Psychiatrist: [facility] Psychiatrist's Date Of Appointment With Psychiatric Provider: 09/16/23 Time of Appointment with Psychiatrist: 10:15 AM check in Psychiatric Appointment Comment: [address] [id number] - complete info packet online prior Therapist Name of Therapist: [facility] Therapist's Date of Therapist Appointment: 09/21/23 Time of Therapist Appointment: 12:15 PM Therapy Appointment Comment: [address] [id number] - complete info packet online prior Post Discharge Appointments Primary Care Physician Name Of Family Doctor/PCP: [facility] - Heather Heath PA-C Primary Care Date of Future Appointment with PCP: 09/24/23 Time of Appointment with PCP: 10:45 AM Provider Appointment Comment: [address]leigh Le[address], [address], [place] [address] Contact Information Discharge Discharge Address: [address] [place], [place] [id number]
[2023-09-10] MEDS: INSULIN ASPART PER UNIT CHARGE SC ONE (19:29)
[2023-09-10] MEDS: LANTUS PER UNIT CHARGE SC ONE (22:21)
[2023-09-11] MEDS: INSULIN ASPART PER UNIT CHARGE SC SCH (01:57)
[2023-09-11 06:46] VITALS: TEMP 98.8
--- NOTE | 2023-09-11 09:29 | Pharmacy Report ---
Pharmacy Glycemic Short Note 2 - Date of Service September 11, 2023 - Glycemic Short BSG Results (Last 24 hours): 09/10/23 09/10/23 09/10/23 12:22 17:08 17:29 POC Glucose 251 H 45 L* 54 L* 09/10/23 09/10/23 09/10/23 17:54 18:21 19:02 POC Glucose 44 L* 148 H 268 H 09/10/23 09/11/23 09/11/23 22:07 01:52 08:28 POC Glucose 296 H 100 H 142 H OUTPATIENT ANTIDIABETIC REGIMEN: * Basaglar 10 units SC BID * Novolog ACHS SC sliding scale * HbA1c: 7.9% (09/03/23) ASSESSMENT: 09/11: * Lana received 41 units of insulin yesterday, 15 basal + 26 bolus. BSGs were: 524-914-56-296 mg/dL. * Patient had a hypoglycemic event last night in which nursing notes stated "she felt funny". Required 2 OJs as well as dinner and BSGs were still low. Rebounded to >200 mg/dL 2 hours later. Novolog was loosened and Lantus was reduced. * Fasting BSG is 142 mg/dL this AM. Will continue with reduced dose of basal this HS. * Continues to have hyperglycemia at lunchtime. Therefore, I will continue with tighter goal range with breakfast and will tighten Novolog significantly at this time. Given hypoglycemia last night will loosen goal range to 140-180 for the remainder of the day and will not cover carbs. Provide correctional for BSGs >180 mg/dL with 1 unit for every 50 mg/dL above this upper goal range. 09/10: * Pt rec'd 44 units of insulin yesterday (20 of basal, 24 of bolus). BSGs were: 285, 199, 81, 78 * Novolog parameters adjusted slightly this morning to provide less carb coverage throughout the day, d/t downward trend of BSGs yesterday. * Pt continues to require tighter coverage with breakfast and looser coverage throughout the day, with the lowest BSG occuring at dinnertime most days. * Will continue to follow and adjust regimen as indicated. 09/08: * Patient received 36 units of insulin yesterday, 20 of basal + 16 of bolus. BSGs 370-487-392-176 mg/dL * Fasting this AM 132 mg/dL- continue 20 units of lantus qPM * Lunch BSG improved with tightened carb ratio in AM- monitor for need to loosen * Continue looser parameters after breakfast 09/07: * Patient received 33 units of insulin yesterday, 15 basal + 18 bolus. BSGs were: 143-773-94-237 mg/dL. * Dinner hypoglycemia was asymptomatic. Treated with 15 g carbs but refused recheck per nursing notes. Hypoglycemia may have been due to insulin stacking or too much correctional insulin. * Given lunchtime BSGs have been elevated, will tighten Novolog with breakfast only and then loosen Novolog starting at lunchtime throughout the remainder of the evening. Goal is to control lunchtime BSG and prevent hypoglycemia throughout the evening. Goal range will also be loosened starting at lunch. * Fasting BSG did improve to 216 mg/dL today but still remains well above goal. Will increase basal by 30% this evening. 09/06: * Lana received 28 units of insulin yesterday, 12 basal + 16 bolus. BSGs were labile: 28-111-025-136-56 mg/dL. Patient was asymptomatic during hypoglycemia that evening and required 15 g carbs to bring BSG up to 80 mg/dL. Of note, L antus was reduced last evening secondary to hypoglycemia. * Fasting BSG is 263 mg/dL this morning. RN denies any snacking/eating prior to check per her knowledge. Patient prefer basal dose to be given at HS. Will increase basal to previously ordered regimen of 15 units. Novolog was loosened this AM given trend down in BSG yesterday evening resulting in hypoglycemia. Ordered and tolerating a T1DM diet. 09/05: * 68 year old admitted to [facility] unit. Pharmacy consulted for glycemic management. Fasting BSG 76 mg/dL - patient previously receiving Lantus 10 units BID from last admission. Received 20 units of basal total yesterday. Discussed with provider and patient would prefer taking long acting insulin at HS. Plan to start Lantus 15 units at HS. Slight reduction warranted as AM fasting <80 mg/dL. Of note, had been on high rate of D5 fluids last admission for hyponatremia so anticipate insulin needs to be less. * Lunch BSG trending upward 372 - discussed with RN and reports taken prior to eating. Does report patient had a small breakfast but carbs consumed were very minimal so no insulin needed. Plan to recheck BSG this afternoon to ensure trending downward. PLAN FOR INPATIENT GLYCEMIC CONTROL: * Basal insulin * Lantus 15 units SC HS * Bolus insulin * NovoLog per scale ACHS or Q6hrs while NPO * Breakfast: Goal Range = 110 mg/dL - 140 mg/dL; Correction Factorbb= 15 mg/dL/unit; Carb ratio of 1 unit per 5 grams CHO consumed * Lunch, Dinner, HS: Goal Range = 140 mg/dL - 180 mg/dL; Correction Factorbb= 50 mg/dL/unit; NO CARB RATIO
--- NOTE | 2023-09-11 09:32 | Discharge Summary ---
Date of Service September 11, 2023 History of Present Illness Patient was seen on consult service by Dr. Latham and continued to request inpatient care on reassessment on 09/04/23 as disrupted sleep, overwhelming anxiety, poor concentration/motivation, and poor appetite. Although she was not taking excessive amounts of opioid medication, it was being used to numb her emotions twice a day rather than deal with ruminative thoughts. She feels hopeless and "useless" around her daughter's home where she has been staying since d/c from rehab following her fx as patient's home is 2 floors and bathroom is upstairs. She worries about finances and ability to maintain her home of nearly 50 years by herself. She is also struggling to care for her 10 yo dog who also has health issues. She feels like a burden in asking others for help. Although she loves her 4 yo grandson, interacting with a preschooler is overwhel sayda. Due to her inactivity, poor diet, and use of prescription pain medication she developed significant constipation and was admittedly drinking excessive amounts of water. When that failed to relieve her constipation she ingested cooking oil which caused GI distress which also likely contributed to her drop in sodium to 128 on admission. She denies that she was intentionally trying to harm herself and states that she didn't realize that water could be dangerous. She continues to deny suicidal thoughts but is easily overwhelmed and admits that she has made some passive SI statements in the past. In general, her mood over the past year was stable off of meds prior to the fall and she had transitioned out of regular therapy. Physical Exam Psychiatric See admission H&P and DOD assessment. Vital Signs (Past 24 Hours) Last Vital Signs Temp 37.1 C 09/11/23 06:44 Pulse 73 09/11/23 06:45 Resp 16 09/11/23 06:44 BP 109/70 09/11/23 06:45 Pulse Ox 97 09/09/23 06:00 O2 Del Method Room Air 09/09/23 06:00 Principal Diagnosis major depressive disorder, recurrent Psychiatric Data See daily stay summary. In short, safety was maintained and the patient was cooperative with care. Medication changes included a retrial of Wellbutrin and the addition of trazodone at bedtime and they tolerated this well. She is aware of fall risk with sleeping medication and agrees not to combine with other substances. A family session was held with her daughter and safety plan was completed prior to discharge. Reviewed that PCP will direct frequency of recheck of sodium. Day of Discharge Assessment Today the patient voices readiness for discharge. They note improvement in mood and deny thoughts to harm self or others. Thoughts remain organized and they are improved from admission. Her gait is steady with walker. There is no evidence of psychosis. They agree to take mediations as prescribed and keep follow-up appointments. They are stable for discharge to outpatient level of care. Transition of Care Transition Of Care Record: was reviewed with the patient Advance Directives Advance Directives Information Provided: Yes Advance Directives: No Mental Health Advance Directive: No Advance Directives on File: No Living Will: No Power of Community Support Associate: No Advance Directives Reason:: Declines as Mental Health Visit. Suicide Risk Level Suicide Risk Level Comments: Suicide risk at discharge is deemed low as the patient is no longer requiring 24-hr monitoring, has a safety plan, and is free of suicidal ideation at discharge. Risk Factors Assessment : Yes Do You Have Access To A Gun?: No Health Problems: Yes Mental Health Diagnoses: Yes Previous Attempt: No Family History of Suicide: Yes Previous Psychiatric Hospitalization: Yes Protective Factors Assessment Supportive Family: Yes Tobacco Cessation at Discharge Tobacco Cessation Medication Prescribed at Discharge: Not Applicable/Non-Smoker Total Time Total Time Spent: Greater Than 30 Minutes (33 min) Discharge Data Lab Results see medical hospitalization for additional labs 09/05/23 09/05/23 09/05/23 07:49 12:00 12:02 Sodium Potassium Chloride Carbon Dioxide Anion Gap BUN Creatinine Est Cr Clr Drug Dosing Est GFR ( Amer) Est GFR (Non-Af Amer) BUN/Creatinine Ratio Glucose POC Glucose 76 345 H* 372 H* Calcium 09/05/23 09/05/23 09/05/23 15:02 17:02 20:19 Sodium Potassium Chloride Carbon Dioxide Anion Gap BUN Creatinine Est Cr Clr Drug Dosing Est GFR ( Amer) Est GFR (Non-Af Amer) BUN/Creatinine Ratio Glucose POC Glucose 295 H 136 H 56 L* Calcium 09/05/23 09/05/23 09/06/23 20:26 20:46 08:03 Sodium Potassium Chloride Carbon Dioxide Anion Gap BUN Creatinine Est Cr Clr Drug Dosing Est GFR ( Amer) Est GFR (Non-Af Amer) BUN/Creatinine Ratio Glucose POC Glucose 62 L* 80 263 H Calcium 09/06/23 09/06/23 09/06/23 12:34 17:05 19:53 Sodium Potassium Chloride Carbon Dioxide Anion Gap BUN Creatinine Est Cr Clr Drug Dosing Est GFR ( Amer) Est GFR (Non-Af Amer) BUN/Creatinine Ratio Glucose POC Glucose 209 H 69 L* 237 H Calcium 09/07/23 09/07/23 09/07/23 06:53 08:20 12:45 Sodium 135 L Potassium 4.8 Chloride 102 Carbon Dioxide 28 Anion Gap 5 BUN 11 Creatinine 0.71 Est Cr Clr Drug Dosing 68.2 Est GFR ( Amer) 101.4 Est GFR (Non-Af Amer) 87.5 BUN/Creatinine Ratio 15.5 Glucose 229 H POC Glucose 216 H 236 H Calcium 9.3 09/07/23 09/07/23 09/08/23 17:15 20:12 07:42 Sodium Potassium Chloride Carbon Dioxide Anion Gap BUN Creatinine Est Cr Clr Drug Dosing Est GFR ( Amer) Est GFR (Non-Af Amer) BUN/Creatinine Ratio Glucose POC Glucose 100 H 176 H 132 H Calcium 09/08/23 09/08/23 09/08/23 12:24 17:14 20:29 Sodium Potassium Chloride Carbon Dioxide Anion Gap BUN Creatinine Est Cr Clr Drug Dosing Est GFR ( Amer) Est GFR (Non-Af Amer) BUN/Creatinine Ratio Glucose POC Glucose 127 H 155 H 202 H Calcium 09/09/23 09/09/23 09/09/23 08:18 11:40 17:11 Sodium Potassium Chloride Carbon Dioxide Anion Gap BUN Creatinine Est Cr Clr Drug Dosing Est GFR ( Amer) Est GFR (Non-Af Amer) BUN/Creatinine Ratio Glucose POC Glucose 285 H 199 H 81 Calcium 09/09/23 09/10/23 09/10/23 20:30 08:31 12:22 Sodium Potassium Chloride Carbon Dioxide Anion Gap BUN Creatinine Est Cr Clr Drug Dosing Est GFR ( Amer) Est GFR (Non-Af Amer) BUN/Creatinine Ratio Glucose POC Glucose 78 176 H 251 H Calcium 09/10/23 09/10/23 09/10/23 17:08 17:29 17:54 Sodium Potassium Chloride Carbon Dioxide Anion Gap BUN Creatinine Est Cr Clr Drug Dosing Est GFR ( Amer) Est GFR (Non-Af Amer) BUN/Creatinine Ratio Glucose POC Glucose 45 L* 54 L* 44 L* Calcium 09/10/23 09/10/23 09/10/23 18:21 19:02 22:07 Sodium Potassium Chloride Carbon Dioxide Anion Gap BUN Creatinine Est Cr Clr Drug Dosing Est GFR ( Amer) Est GFR (Non-Af Amer) BUN/Creatinine Ratio Glucose POC Glucose 148 H 268 H 296 H Calcium 09/11/23 09/11/23 01:52 08:28 Sodium Potassium Chloride Carbon Dioxide Anion Gap BUN Creatinine Est Cr Clr Drug Dosing Est GFR ( Amer) Est GFR (Non-Af Amer) BUN/Creatinine Ratio Glucose POC Glucose 100 H 142 H Calcium Hospital Course (1) Major depressive disorder, recurrent severe without psychotic features: Plan 09/10/23: The patient continues to improve. Affect is brightening. She is starting to think about her neighbor who has depression and needs some support. Family meeting is tomorrow and she will likely discharge if it goes well. We will continue the trazodone as is. I made sure the zolpidem is gone. 09/09/23: The patient has finally had a good night sleep which I think will help her mood dramatically. I want to see how she does throughout the day today with her participation and see if she continues to maintain her hygiene. I am going to change the trazodone slightly and combine the 2 doses into 1 at 100 mg that she can take at bedtime. I do not want her to take it so late and be sedated throughout the day. We are setting up a family meeting for either Wednesday morning or may be by phone on Wednesday. I would like to have at least a couple of days in a row of her doing better before I am going to feel comfortable discharging her home. 09/08/23: We are going to continue with her current level of observation and precautions. We eliminated this Seroquel and hydroxyzine. We decided to try some trazodone at bedtime to see if that might help. We will start with 50 mg at bedtime as needed and she can repeat that once after 1 hour but before 3 AM. I reviewed the uses, side effects, and time course and she gave informed consent. I encouraged her to keep going to groups and activities, maintain good hygiene, and try not to isolate. She is definitely looking better, more relaxed with better eye contact and not looking so depressed. We are starting to work on discharge planning and hope to get her back to her family in the next few days if she continues to improve like this. 09/07/23: We will continue with her current level of observation and precautions. I encouraged her to take part in the therapeutic milieu, attend groups and activities, maintain good hygiene, and try not to isolate. I used a behavioral activation approach there. We discussed options for her anxiety and decided to try a small dose of Seroquel during the day as needed for anxiety. I wrote for 12.5 mg twice daily as needed anxiety. She is now aware that she can take an extra dose of 25 mg of Seroquel during the night before 3 AM if she needs it. We also talked about her upcoming living situation and how we need to make sure she is functioning well enough that she is not going to be a burden to her [id number]. The patient worries a lot about being a burden and not being able to be at home. We will continue with the Wellbutrin XL to try to help her mood. Mental Health & Subst Abuse Tx Psychiatrist Name of Psychiatrist: [facility] Psychiatrist's Date Of Appointment With Psychiatric Provider: 09/16/23 Time of Appointment with Psychiatrist: 10:15 AM check in Psychiatric Appointment Comment: [address] [facility] [place] AMBER [id number] - complete info packet online prior Therapist Name of Therapist: [facility] Therapist's Date of Therapist Appointment: 09/21/23 Time of Therapist Appointment: 12:15 PM Therapy Appointment Comment: [address] [facility] [place] [id number] - complete info packet online prior Post Discharge Appointments Primary Care Physician Name Of Family Doctor/PCP: [facility] - Heather Heath PA-C Primary Care Date of Future Appointment with PCP: 09/24/23 Time of Appointment with PCP: 10:45 AM Provider Appointment Comment: [address], [address], [place] [address] Smoking Cessation Counseling Tobacco Cessation Medication Prescribed at Discharge: Not Applicable/Non-Smoker Contact Information Discharge Discharge Address: [address] [place] [id number] Discharge Plan Discharge Items Patient Disposition: Home - Self-Care Reason For Visit: MDD Discharge Diagnosis: major depressive disorder Activity: Per Instructions section Activity Comment: weight bearing with walker only until cleared by ortho Non-emergency contact: Primary Care Provider and Therapist Call non-emergency contact if: you have any medication questions and your symptoms worsen Follow-up/Referrals: Heather Heath PA-C [Primary Care Provider] - Diet: Carb Consistent or DM2 Addtl Attending Provider Instructions: SPECIAL CARE INSTRUCTIONS: 1. Follow through with your scheduled aftercare appointments. If unable to keep an appointment, please call to reschedule. 2. Take your medication only as prescribed. Medication should not be changed or stopped without the approval of your doctor. In the event of worsening symptoms or concerns about side effects, contact your doctor immediately. 3. Utilize new healthy coping skills, anger management skills, and stress management skills learned during your hospitalization. Journal feelings and process them with a support person. Identify stressors or situations that may result in relapse, deterioration or inappropriate behaviors and develop a plan to deal with those issues. 4. If your coping skills are ineffective and you are in crisis, contact your outpatient providers for direction. If unable to reach your providers, please call the [facility] CRISIS LINE AT , go to the [facility] walk-in center at [address], [address], [place], or go to the closest Emergency Room. 5. Avoid alcohol and un-prescribed drugs. 6. You have been provided with the Mental Health Advance Directives Pamphlet for your review. 7. Your condition is stable for discharge to outpatient level of care, but recovery is an ongoing process. Ifthoughts to harm yourself or others return, follow the safety plan developed during your stay. Planning for a safe return home includes securing weapons. Our treatment team recommends weaponsbe removed from the home until your outpatient provider reassesses your progress. In rare cases where the items themselvescannot be removed, guns and ammunitionshould be secured separatelyand keys stored by a reliable personoutside of the home. If you were admitted on an involuntary commitment, the police or other legal authorities may be involved in this process. AFTERCARE APPOINTMENTS: * Please call your insurance company prior to your scheduled appointment to confirm your aftercare providers are covered. Take your insurance information to your appointments. WHO TO CALL AND WHEN: Medical Emergencies: For questions or emergencies related to your hospital stay, please contact the Inpatient Behavioral Health Unit at [phone]. A psychiatric clinical nurse specialist is on-call 22/02 for the Behavioral Health Unit for emergencies At any time you feel your situation is an emergency, you may also call 911 immediately. Pending Studies at Discharge: No Stand-Alone Forms: [facility], Smoking Cessation Medications and DC Order Prescriptions: New acetaminophen [Tylenol Extra Strength] 500 mg Tablet 1,000 mg PO Q8H PRN (Reason: pain) Qty: 1 0RF trazodone 100 mg Tablet 100 mg PO HS PRN (Reason: insomnia) Qty: 30 0RF docusate sodium 100 mg Capsule 100 mg PO BID Qty: 1 0RF bupropion HCl 150 mg Tablet Extended Release 24 Hr 150 mg PO QAM Qty: 30 0RF multivitamin with folic acid [Daily-Arleen (with folic acid)] 400 mcg Tablet 1 tab PO DAILY Qty: 1 0RF Continued amlodipine 2.5 mg tablet 2.5 mg PO PM lisinopril 40 mg tablet 20 mg PO BID levothyroxine [Euthyrox] 112 mcg tablet 112 mcg PO DAILYBB cholecalciferol (vitamin D3) [Vitamin D3] 10 mcg (400 unit) Tablet 10 mcg PO HS aspirin 81 mg Tablet,Delayed Release (Dr/Ec) 81 mg PO DAILY pravastatin 40 mg tablet 40 mg PO HS insulin aspart U-100 [Novolog FlexPen U-100 Insulin] 100 unit/mL (3 mL) Insulin Pen 1 sliding scale dose subcut USEASDIRECTD MDD 25 unit Qty: 15 0RF Rx Instructions: -Goal BSG Range: Low 110_mg/dL, High 140_mg/dL --Correction Factor: 20_mg/dL/unit --Carbohydrate ratio = _12_ g/unit Changed insulin glargine [Basaglar KwikPen U-100 Insulin] 100 unit/mL (3 mL) insulin pen 20 unit SUBCUT HS Qty: 15 0RF Rx Instructions: if having consecutive lows, decrease to 15 u until contact primary care office Discontinued escitalopram oxalate 5 mg tablet 5 mg PO DAILY Discharge Orders: Discharge Order (Routine); Ordered 09/11/23 Ordered By: Lindsay Smith Admission Data Admit Date/Time: 09/04/23 21:28 Attending Provider: Lindsay Smith Admit Provider: Lindsay Smith Primary Care Provider: Heather Heath Other Interventions: Discharge Summary Assessment (RN) Last Done: 09/11/23 09:50 PSY Interdisciplinary Discharge Planning Last Done: 09/11/23 09:52 Coding Level of Care Code 87316 D/C day mgmt > 30 min Diagnoses Major depressive disorder, recurrent severe without psychotic features F33.2
[2023-09-11 09:52] VITALS: BP 121/74; PULSE 81
[2023-09-11] MEDS ORDERED: LANTUS PER UNIT CHARGE SC SCH (22:00)
== END 2023-09-11 11:15 | disposition home or self-care (01) | DRG 885 ==
LOC: 3S 21:28

== ENCOUNTER 2024-03-13 13:28 | Inpatient (IN) ==
[2024-03-13 14:14] LABS: Appearance Urine Clear (Clear); Bacteria Urine Automated None Seen (None Seen); Bilirubin Urine Negative (Negative); Blood Urine Negative (Negative); Cast Urine Automated 0-2 /lpf (0-2); Color Urine Yellow; Glucose Urine UA 1+ (Negative); Ketones Urine Trace (Negative); Leukocyte Esterase Urine Trace (Negative); Nitrite Urine Negative (Negative); Protein Urine Negative (Negative); RBC Urine Automated 0-2 /hpf (0-2); Specific Gravity Urine 1.012 (1.000-1.030); Urobilinogen Urine Negative (Negative); WBC Urine Automated 0-5 /hpf (0-5); pH Urine 6.5 (4.5-7.5)
[2024-03-13 14:34] LABS: Amphetamines+Metham, Urine Neg (Neg); Barbiturates, Urine Neg (Neg); Benzodiazepine, Urine Neg (Neg); Cocaine, Urine Neg (Neg); Fentanyl, Urine Neg (Neg); MDMA (Ecstacy), Urine Neg (Neg); Marijuana, Urine Neg (Neg); Methadone, Urine Neg (Neg); Opiate, Urine Neg (Neg); Phencyclidine, Urine Neg (Neg)
[2024-03-13] MEDS: SODIUM CHLORIDE 0.9% 1,000 ML IV ONE (14:35)
[2024-03-13 15:03] LABS: Bilirubin,Total 0.4 mg/dl (0.2-1.0); Calcium 9.4 mg/dl (8.6-10.3); Potassium 4.1 mmol/L (3.5-5.1)
--- NOTE | 2024-03-13 15:03 | Emergency Department Note ---
Impression & Plan Medication overdose, Suicidal ideation, Slurred speech, Depression ED Provider Note NAME: ALBA DICKENS AGE: 68 SEX: F : 1955 ARRIVES VIA: Ambulance INFORMANT: [Patient] ED PROVIDER(S): [Mickey Willis MD] CHIEF COMPLAINT: Overdose HISTORY OF PRESENT ILLNESS: The patient is a 68-year-old female presents to the ER after taking extra Seroquel. She took anywhere from 10 to 15--50 mg Seroquel tablets around 6 hours ago. She states that she did this to help with sleep, she is not sure if this was a suicide attempt or not. The patient admits to feeling groggy and off balance, she has not lost consciousness. Her [id number] noticed that she was slurring her speech and because of what had happened, the ambulance was called. En route to the hospital, she was given a 500 cc of IV saline. Patient currently feels off balance and a bit dizzy. She has no chest pain, there has been no nausea or vomiting. No cough or cold or congestion. She states that she has been depressed for weeks, things have worsened a lot in just the last week. Her daughter this weekend threatened to petition a 302. PMHx/PSHx/Social Hx: See Below PHYSICAL EXAM: GENERAL: Patient is in no acute distress. HEENT: No acute trauma, normocephalic atraumatic, mucous membranes moist, no nasal congestion. NECK: No stridor, no adenopathy, no meningismus, trachea is midline. LUNGS: Clear to auscultation bilaterally, no wheeze, no rhonchi, breath sounds equal. HEART: Without murmurs gallops or rubs, regular rate and rhythm. ABDOMEN: Soft, nontender, no peritonitis. EXTREMITIES: No cyanosis, full range of motion of all the joints without pain or difficulty. NEUROLOGIC: Oriented x 3, no acute motor or sensory deficits, no focal weakness. Slight speech slur. SKIN: No jaundice, no diaphoresis. DIFFERENTIAL DIAGNOSIS: Overdose, suicidality, dehydration, electrolyte imbalance, dysrhythmia, among others. EMERGENCY DEPARTMENT PROCEDURES: MEDICAL DECISION MAKING: There is no leukocytosis or concerning anemia. There is a normal platelet count. No renal failure or significant electrolyte abnormality. No concerning liver enzyme elevation. Patient appears to be in a euthyroid state. Urinalysis does suggest some dehydration, no findings of infection. Aspirin, Tylenol and alcohol levels were undetectable. Urine tox was negative. COVID test was negative. ECG showed a sinus rhythm, no dysrhythmia, no significant prolongation of the QTc. On exam, the patient had a slight speech slur, she was awake, there were no focal neurologic findings. The patient received IV saline, 1 L. She had received a 500 cc saline bolus prior to arrival. I did speak with the poison center. The patient requires some monitoring, supportive measures were advised. Hydration was encouraged. The patient is in need of a hospital stay. She can be seen by psychiatry in consult as I am concerned she took the Seroquel as a suicide attempt. I did have case management see the patient, I did talk with the patient at length. The on-call hospitalist was consulted. Prior/Outside records/notes reviewed: EMS notes today describing her presentation and transport to this hospital. ECG per my interpretation: Indication was overdose. The ECG shows a normal sinus rhythm with a rate of 74. There is poor R wave progression. There is no acute ST elevation, no PVCs. Some baseline artifact was seen. The QTc was 432. Continuous Cardiac Monitoring per my interpretation: An order was placed for continuous cardiac monitoring. The monitor shows a rate of 66 with normal sinus rhythm. Imaging/x-ray results per my interpretation: Chronic Medical/Social conditions affecting care: History of depression and prior psychiatric hospitalization Care/Management discussed with: Case management, the on-call hospitalist. The poison center staff on-call. Level of care consideration(s): After review of the information above and other included data: --I believe the patient requires escalation of care to admission Critical Care Note: I have personally spent 38 minutes of critical care time in the direct management of this patient. This includes bedside care, interpretation of diagnostic studies, and testing, discussion with consultants, patient, and family members, and other required patient management activities. This 38 minutes is in excess of all separately billable procedures. DISPOSITION: Admission Past Med/Surg History Problem List (Updated 03/13/24 @ 21:37 by Mickey Willis MD) Depression (Acute) Slurred speech (Acute) Suicidal ideation (Acute) Medication overdose (Acute) Overdose History of diverticulitis GERD (gastroesophageal reflux disease) Iron deficiency Acute hyponatremia (Acute) Major depression, recurrent, chronic Acute depression Nausea and vomiting Chronic hyponatremia History of stroke Leukocytosis Insulin-requiring or dependent type II diabetes mellitus Fall (Acute) Head injury (Acute) Laceration of scalp (Acute) Closed intertrochanteric fracture of left hip (Acute) Epigastric pain Tobacco use (Acute) Acute hyponatremia (Acute) Abdominal pain (Acute) Major depression Vertigo Dyslipidemia Dizziness Rotary nystagmus (Acute) Ataxia (Acute) Hypothyroidism (Chronic) Major depressive disorder, recurrent severe without psychotic features Tobacco use disorder Diarrhea Suicidal ideation (Acute) Hyperglycemia due to type 1 diabetes mellitus (Acute) Abdominal pain (Acute) HTN (hypertension) (Chronic) Medical History History of suicidal ideation (2014) Hx of fracture of left hip (06/2023) surgery Hx of fall (06/2023) fx femure, head injury, scalp lac Chronic hyponatremia Nausea and vomiting Iron deficiency 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, "I don't walk like i did before" History of colon polyps Epigastric pain Hx of bronchitis (2017) tx with inhaler at the time, no issues since Hyperlipemia Hypertension Hypothyroidism History of stroke (2021) "minor" no deficits, no neurologist, treated at [facility] and [facility] Hx of major depression Hx of diverticulitis of colon Diverticulosis Diabetes mellitus IDDM Surgical History Hx of tonsillectomy Hx of esophagogastroduodenoscopy Hx of colonoscopy with polypectomy History of (1991) History of right hip replacement (2020) History of open reduction and internal fixation (ORIF) procedure (11/2020) right wrist History of open reduction and internal fixation (ORIF) procedure (06/2023) Left femur, due to fall Family History Brother Hypertension Social History Smoking Status: Current every day smoker Tobacco Type: Cigarettes Second Hand Exposure: No; Do You Dip or Chew Tobacco: No; Hx Alcohol Use: No Hx Substance Use: No Preferred Language: German Communication Ability: Effective Manager Image Required: No Beliefs That Will Affect Care: None marital status: / Current Living Situation: Alone Current Living Situation Comment: living with daughter since hip fracture current occupational status: retired Feels Safe at Home: Yes Gender Identity: Female Assistive Devices: None Allergies Allergies Allergy/AdvReac Type Severity Reaction Status Date / Time No Known Allergies Allergy Verified 01/06/24 08:53 Home Meds Home Medications Medication Instructions Recorded Confirmed levothyroxine 112 mcg tablet 112 mcg PO DAILYBB 11/22/21 03/13/24 (Euthyrox) aspirin 81 mg tablet,delayed 81 mg PO QAM 06/18/23 03/13/24 release docusate sodium 100 mg capsule 100 mg PO BID PRN Constipation 09/22/23 03/13/24 cholecalciferol (vitamin D3) 25 25 mcg PO QAM 11/23/23 03/13/24 mcg (1,000 unit) capsule lactobacillus combination no.9 4 4,000 mmu cells PO QAM 11/23/23 03/13/24 billion cell capsule (Adult 50 Plus Probiotic) quetiapine 50 mg tablet (Seroquel) 50 mg PO HS PRN Sleep 12/22/23 03/13/24 escitalopram oxalate 10 mg tablet 10 mg PO DAILY 03/13/24 03/13/24 insulin glargine 100 unit/mL (3 18 unit subcut HS 03/13/24 03/13/24 mL) subcutaneous pen (Basaglar KwikPen U-100 Insulin) lisinopril 20 mg tablet 20 mg PO BID 03/13/24 03/13/24 Previous Rx's Medication Instructions Recorded insulin aspart U-100 100 unit/mL 1 sliding scale dose subcut 09/04/23 (3 mL) subcutaneous pen (Novolog USEASDIRECTD #15 mL FlexPen U-100 Insulin aspart) acetaminophen 500 mg tablet 1,000 mg (2 x 500 mg) PO Q8H PRN 09/11/23 (Tylenol Extra Strength) pain #1 tab bupropion HCl 150 mg 24 hr tablet, 150 mg PO QAM #30 tabs 09/11/23 extended release multivitamin with folic acid 400 1 tab PO DAILY #1 tab 09/11/23 mcg tablet (Daily-Arleen (with folic acid)) Results & Data (ED) Vital Signs Vital Signs - 24 hr 03/13/24 13:50 03/13/24 13:50 03/13/24 14:03 Temperature 36.6 C Temperature Source Temporal Artery Scan Pulse Rate 69 71 Pulse Rate [Finger] 69 Pulse Rhythm Regular Pulse Rhythm [Finger] Regular Pulse Strength Normal Pulse Strength [Finger] Normal Respiratory Rate 16 20 16 Respiratory Effort / Characteristics Non-Labored Spontaneous Non-Labored Spontaneous Respiratory Depth Normal Normal Blood Pressure 120/73 102/73 Blood Pressure [Right Arm] 102/73 Blood Pressure Mean 88 82 Blood Pressure Mean [Right Arm] 82 Blood Pressure Position [Right Arm] Sitting Pulse Oximetry 93 93 94 Oxygen Delivery Method Room Air Room Air Room Air Sepsis Recent Fever Within 48 Hours No Sepsis New/Unexplained Change in Mental Status N/A Sepsis Action Taken by Nursing No Action Required 03/13/24 14:12 03/13/24 14:30 03/13/24 15:50 Temperature Temperature Source Pulse Rate 69 66 Pulse Rate [Finger] 70 Pulse Rhythm Pulse Rhythm [Finger] Pulse Strength Pulse Strength [Finger] Respiratory Rate 22 19 Respiratory Effort / Characteristics Non-Labored Spontaneous Respiratory Depth Normal Blood Pressure 130/76 Blood Pressure [Right Arm] 134/96 Blood Pressure Mean 94 Blood Pressure Mean [Right Arm] 108 Blood Pressure Position [Right Arm] Pulse Oximetry 94 96 Oxygen Delivery Method Room Air Room Air Sepsis Recent Fever Within 48 Hours Sepsis New/Unexplained Change in Mental Status Sepsis Action Taken by Long Term Medications Current Medication List: was personally reviewed by me Laboratory Data Attestation: I reviewed the patient's lab results. 03/13/24 14:39 03/13/24 14:39 Lab Results 03/13/24 03/13/24 Range/Units 13:40 14:39 WBC 6.99 (4.8-10.8) K/ul RBC 4.27 (4.20-5.40) M/uL Hgb 13.4 (12.0-16.0) g/dl Hct 40.0 (37.0-47.0) % MCV 93.7 (80.0-100.0) fL MCH 31.4 (25.0-34.0) pg MCHC 33.5 (32.0-36.0) g/dL RDW Std Deviation 47.5 H (36.4-46.3) fL RDW Coeff of Cindy 14.0 (11.5-14.5) % Plt Count 229 (130-400) K/uL MPV 10.5 (9.4-12.4) fL Immature Gran % (Auto) 0.1 % Neut % (Auto) 62.5 % Lymph % (Auto) 30.2 % [place] % (Auto) 5.4 % Eos % (Auto) 1.4 % Baso % (Auto) 0.4 % Neut # (Auto) 4.36 (1.40-6.50) K/uL Lymph # (Auto) 2.11 (1.20-3.40) K/uL [place] # (Auto) 0.38 (0.11-0.59) K/uL Eos # (Auto) 0.10 (0.00-0.50) K/uL Baso # (Auto) 0.03 (0.00-0.20) K/uL Immature Gran # (Auto) 0.01 (0.01-0.20) K/uL Sodium 137 (136-145) mmol/L Potassium 4.1 (3.5-5.1) mmol/L Chloride 106 (98-107) mmol/L Carbon Dioxide 25 (21-32) mmol/L Anion Gap 6 (3-11) BUN 11 (6-23) mg/dl Creatinine 0.82 (0.6-1.2) mg/dl Est Cr Clr Drug Dosing 58.0 ml/min Est GFR ( Amer) 85.2 ml/min Est GFR (Non-Af Amer) 73.5 ml/min BUN/Creatinine Ratio 13.4 (10-20) Glucose 146 H (70-99(Fasting)) mg/dl Calcium 9.4 (8.6-10.3) mg/dl Total Bilirubin 0.4 (0.2-1.0) mg/dl AST 13 (13-39) U/L ALT 14 (7-52) U/L Alkaline Phosphatase 64 (34-104) U/L Total Protein 6.3 (6.0-8.3) gm/dl Albumin 4.0 (3.4-5.0) gm/dl Globulin 2.3 L (2.5-4.0) gm/dl Albumin/Globulin Ratio 1.7 (0.9-2) TSH 0.320 (0.300-4.500) uIu/ml Urine Color Yellow Urine Appearance Clear (Clear) Urine pH 6.5 (4.5-7.5) Ur Specific [place] 1.012 (1.000-1.030) Urine Protein Negative (Negative) Urine Glucose (UA) 1+ H (Negative) Urine Ketones Trace H (Negative) Urine Blood Negative (Negative) Urine Nitrite Negative (Negative) Urine Bilirubin Negative (Negative) Urine Urobilinogen Negative (Negative) Ur Leukocyte Esterase Trace H (Negative) Urine WBC (Auto) 0-5 (0-5) /hpf Urine RBC (Auto) 0-2 (0-2) /hpf U Hyaline Cast (Auto) 0-2 (0-2) /lpf U Epithel Cells (Auto) 3-5 H (0-2) /hpf Urine Bacteria (Auto) None Seen (None Seen) Salicylates < 3.0 L (3.0-30) mg/dl Urine Opiates Screen Neg (Neg) Ur Methadone, Qual Neg (Neg) Urine Fentanyl Screen Neg (Neg) Acetaminophen < 3 L (10-30) ug/ml Urine Barbiturates Neg (Neg) Ur Phencyclidine (PCP) Neg (Neg) U Amphetamin/Meth Scrn Neg (Neg) MDMA (Ecstasy) Screen Neg (Neg) U Benzodiazepines Scrn Neg (Neg) Ur Cocaine Metabolite Neg (Neg) U Marijuana (THC) Screen Neg (Neg) Ethyl Alcohol mg/dL < 10.0 (<10.0) mg/dl Administered Medications Insulin Aspart (Insulin Aspart Per Unit Charge) 0 units SC ACHS SACHI Stop: 04/12/24 20:59 Last Admin: 03/13/24 20:46 Dose: 3 units Documented By: NOVA Co-signed By: ANA Insulin Glargine (Lantus Per Unit Charge) 9 units SQ BID SACHI Stop: 04/12/24 20:59 Last Admin: 03/13/24 20:46 Dose: 9 units Documented By: NOVA Co-signed By: ANA Lisinopril (Lisinopril 20 Mg Tab) 20 mg PO BID [facility] Stop: 04/12/24 20:59 Last Admin: 03/13/24 21:00 Dose: 20 mg Documented By: NOVA Discontinued Medications Sodium Chloride (Nss) 1,000 mls @ 999 mls/hr IV .Q1H1M ONE Stop: 03/13/24 15:08 Last Infusion: 08/12/24 15:50 Dose: Infused Documented By: Admin: 03/13/24 14:35 Dose: 999 mls/hr Documented By: [facility] Discharge Plan Visit Data Chief Complaint: Overdose (Intentional) ED Provider: Mickey Willis Discharge Problem: Medication overdose, Suicidal ideation, Slurred speech, Depression Patient Disposition: Admitted As Inpatient Condition: Fair Discharge Instructions Interventions: ED Discharge Assessment Last Done: 03/13/24 20:10 Discharge Problem: Medication overdose Qualifiers: Encounter type: initial encounter Injury intent: intentional self-harm Q ualified Code(s): T50.902A - Poisoning by unspecified drugs, medicaments and biological substances, intentional self-harm, initial encounter Depression Qualifiers: Depression Type: unspecified Qualified Code(s): F32.A - Depression, unspecified
[2024-03-13 15:04] LABS: Basophils # (auto) 0.03 K/uL (0.00-0.20); Basophils % (auto) 0.4 %; Eosinophils % (auto) 1.4 %; Hemoglobin 13.4 g/dl (12.0-16.0); Immature Granulocytes # (auto) 0.01 K/uL (0.01-0.20); Immature Granulocytes % (auto) 0.1 %; Lymphocytes # (auto) 2.11 K/uL (1.20-3.40); Lymphocytes % (auto) 30.2 %; Mean Corpuscular Hemoglobin 31.4 pg (25.0-34.0); Mean Corpuscular Hgb Conc 33.5 g/dL (32.0-36.0); Mean Corpuscular Volume 93.7 fL (80.0-100.0); Mean Platelet Volume 10.5 fL (9.4-12.4); Monocytes # (auto) 0.38 K/uL (0.11-0.59); Monocytes % (auto) 5.4 %; Neutrophils # (auto) 4.36 K/uL (1.40-6.50); Neutrophils % (auto) 62.5 %; Platelet Count 229 K/uL (130-400); RDW Standard Deviation 47.5 fL (36.4-46.3); Red Blood Count 4.27 M/uL (4.20-5.40); White Blood Count 6.99 K/ul (4.8-10.8)
[2024-03-13 15:09] LABS: Albumin Globulin Ratio 1.7 (0.9-2); BUN Creatinine Ratio 13.4 (10-20); Est GFR (African American) 85.2 ml/min; Est GFR (Non-African American) 73.5 ml/min; Globulin 2.3 gm/dl (2.5-4.0); Total Protein 6.3 gm/dl (6.0-8.3)
[2024-03-13 15:13] LABS: Acetaminophen < 3 ug/ml (10-30); Salicylate < 3.0 mg/dl (3.0-30)
--- NOTE | 2024-03-13 15:37 | History & Physical Report ---
Date of Service March 13, 2024 Assessment & Plan (1) Overdose: Plan: Intentional overdose on Seroquel 50 mg tablets; patient reportedly took 12-15 tablets on the morning of 03/13 Hx of depression that has been gradually worsening since August 2023, with an acute exchange clerk the past month Patient denies prior suicide attempts She denies suicidal ideations, thoughts of self-harm, or thoughts of harming others at time of admission ED spoke to poison control who recommended continuous telemetry monitoring and repeat QTc checks Psychiatry consulted One-to-one observation for now with suicide precautions Continue to monitor QTc; 432 on arrival; repeat EKG ordered for the evening of 03/13 A.m. CBC, BMP, mag (2) Insulin-requiring or dependent type II diabetes mellitus: Plan: Last A1c at 8.4% on 01/20/2024 Lantus 9 u BID while inpatient SSI; with target BSG range 110-140mg/dL, CF 40, carb ratio 13 T2DM diet BSG ACHS Adjust regimen as needed (3) Tobacco use: Plan: Patient reports she recently started smoking again as her depression has gotten worse Declines nicotine patch at this time (4) Major depression, recurrent, chronic: Plan: Hold Seroquel, escitalopram, bupropion Plan Disposition: Admit to MedSurg telemetry; psych bed Full code 1:1 observation for now T2DM diet, safe tray VTE PPx: Lovenox 40 mg SQ q24h History of Present Illness Chief Complaint: Overdose (intentional) Primary Care Provider: Heather Kumar Schwartz is a 68-year-old female with PMH of major depressive disorder, tobacco use, HTN, diabetes, vertigo, dyslipidemia, diverticulitis, and GERD. She presented on the morning of 03/13 after intentionally taking 12 to 15 tablets of 50 mg Seroquel. Patient was reportedly speaking to someone on the phone afterwards, who noted slurred speech and called EMS. Patient reports she took the Seroquel this morning because she was depressed and that she "wanted to sleep and not deal with the day". She denies history of prior suicide attempts. She also denies current suicidal ideations, thoughts of self-harm, or thoughts of harming others. She reports that her depression started to spiral after she broke her femur in July 2023, and has gradually gotten worse. Patient lives alone by herself. She reports she has been going to therapy and seeing a psychiatrist, but her depression has gotten worse over the past month. She recently started smoking tobacco cigarettes again; 8 to 10 cigarettes/day. She denies any alcohol use, recreational drug use, or coingestions this morning. Patient did not take her regular morning medications. She reports she did take her insulin this morning as she is a diabetic and uses a Dexcom. She reports she was having some chest palpitations this morning, but none at present. No new concerns at time of admission. ED Course: NSS 1000 mL IV ROS: Patient endorses dizziness/lightheadedness when standing, cold intolerance, ongoing difficulties with vision (which patient attributes to recent eye infections, for which she took antibiotic drops), and chest palpitations this morning (which resolved). Patient denies fever, chills, sweating, headache, chest pain, chest pressure, SOB, pleuritic CP, cough, abdominal pain, numbness or tingling in the arms or legs, or nausea/vomiting. Allergies Allergy/AdvReac Type Severity Reaction Status Date / Time No Known Allergies Allergy Verified 01/06/24 08:53 Home Medications Medication Instructions Recorded Confirmed Type levothyroxine 112 mcg tablet 112 mcg PO DAILYBB 11/22/21 03/13/24 History (Euthyrox) aspirin 81 mg tablet,delayed 81 mg PO QAM 06/18/23 03/13/24 History release insulin aspart U-100 100 unit/mL 1 sliding scale dose subcut 09/04/23 03/13/24 Rx (3 mL) subcutaneous pen (Novolog USEASDIRECTD #15 mL FlexPen U-100 Insulin aspart) acetaminophen 500 mg tablet 1,000 mg (2 x 500 mg) PO Q8H PRN 09/11/23 03/13/24 Rx (Tylenol Extra Strength) pain #1 tab bupropion HCl 150 mg 24 hr tablet, 150 mg PO QAM #30 tabs 09/11/23 03/13/24 Rx extended release multivitamin with folic acid 400 1 tab PO DAILY #1 tab 09/11/23 03/13/24 Rx mcg tablet (Daily-Arleen (with folic acid)) docusate sodium 100 mg capsule 100 mg PO BID PRN Constipation 09/22/23 03/13/24 History cholecalciferol (vitamin D3) 25 25 mcg PO QAM 11/23/23 03/13/24 History mcg (1,000 unit) capsule lactobacillus combination no.9 4 4,000 mmu cells PO QAM 11/23/23 03/13/24 History billion cell capsule (Adult 50 Plus Probiotic) quetiapine 50 mg tablet (Seroquel) 50 mg PO HS PRN Sleep 12/22/23 03/13/24 History escitalopram oxalate 10 mg tablet 10 mg PO DAILY 03/13/24 03/13/24 History insulin glargine 100 unit/mL (3 18 unit subcut HS 03/13/24 03/13/24 History mL) subcutaneous pen (Basaglar KwikPen U-100 Insulin) lisinopril 20 mg tablet 20 mg PO BID 03/13/24 03/13/24 History Past Med/Surg History Problem List (Updated 03/13/24 @ 16:15 by Yo Valdez PAPrashanthC) Overdose History of diverticulitis GERD (gastroesophageal reflux disease) Iron deficiency Acute hyponatremia (Acute) Major depression, recurrent, chronic Acute depression Nausea and vomiting Chronic hyponatremia History of stroke Leukocytosis Insulin-requiring or dependent type II diabetes mellitus Fall (Acute) Head injury (Acute) Laceration of scalp (Acute) Closed intertrochanteric fracture of left hip (Acute) Epigastric pain Tobacco use (Acute) Acute hyponatremia (Acute) Abdominal pain (Acute) Major depression Vertigo Dyslipidemia Dizziness Rotary nystagmus (Acute) Ataxia (Acute) Hypothyroidism (Chronic) Major depressive disorder, recurrent severe without psychotic features Tobacco use disorder Diarrhea Suicidal ideation (Acute) Hyperglycemia due to type 1 diabetes mellitus (Acute) Abdominal pain (Acute) HTN (hypertension) (Chronic) Medical History History of suicidal ideation (2014) Hx of fracture of left hip (06/2023) surgery Hx of fall (06/2023) fx femure, head injury, scalp lac Chronic hyponatremia Nausea and vomiting Iron deficiency 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, "I don't walk like i did before" History of colon polyps Epigastric pain Hx of bronchitis (2017) tx with inhaler at the time, no issues since Hyperlipemia Hypertension Hypothyroidism History of stroke (2021) "minor" no deficits, no neurologist, treated at [facility] and [facility] Hx of major depression Hx of diverticulitis of colon Diverticulosis Diabetes mellitus IDDM Surgical History Hx of tonsillectomy Hx of esophagogastroduodenoscopy Hx of colonoscopy with polypectomy History of (1991) History of right hip replacement (2020) History of open reduction and internal fixation (ORIF) procedure (11/2020) right wrist History of open reduction and internal fixation (ORIF) procedure (06/2023) Left femur, due to fall Family History Brother Hypertension Social History Smoking Status: Current every day smoker Tobacco Type: Cigarettes Second Hand Exposure: No; Do You Dip or Chew Tobacco: No; Hx Alcohol Use: No Hx Substance Use: No Preferred Language: Marshallese Communication Ability: Effective Program Director/Air Personality Required: No Beliefs That Will Affect Care: None marital status: / Current Living Situation: Alone Current Living Situation Comment: living with daughter since hip fracture current occupational status: retired Feels Safe at Home: Yes Gender Identity: Female Assistive Devices: None Review of Systems Review of Systems: See HPI above Physical Exam Physical Exam: General: no acute distress; non-toxic appearing; cooperative HEENT: normocephalic, atraumatic; right sclera is mildly erythematous; PERRLA; vision and hearing grossly intact Neck: supple; no lymphadenopathy; trachea midline Skin: warm, dry without signs of tenting; no cyanosis; no rashes, bruising, lesions, or erythema noted CV: chest wall NTP; RRR; S1/S2 normal; no murmurs/rubs/gallops; pulses intact and symmetric at radial, DP, and PT Lungs: no acute respiratory distress; symmetrical chest wall expansion; clear breath sounds across all lung chapa w/o adventitious sounds; no wheezing ABD: Soft, NTP; BS present; no rebound/guarding; no distention MSK: no tics or fasciculations; no edema noted in the LEs b/l, nonerythematous Neuro: A&Ox3; normal mood and affect; fluent speech; no focal deficits; sensation grossly intact in the LEs b/l Results & Data Results & Data Vital Signs (Past 12 Hours) Vital Signs Temp Pulse Pulse Resp BP BP Pulse Ox 03/13/24 14:30 66 22 130/76 94 03/13/24 14:12 69 03/13/24 14:03 71 16 102/73 94 03/13/24 13:50 69 20 102/73 93 03/13/24 13:50 36.6 C 69 16 120/73 93 O2 Del Method 03/13/24 14:30 Room Air 03/13/24 14:12 03/13/24 14:03 Room Air 03/13/24 13:50 Room Air 03/13/24 13:50 Room Air Laboratory Results Abnormal lab results 03/13/24 03/13/24 Range/Units 13:40 14:39 RDW Std Deviation 47.5 H (36.4-46.3) fL Glucose 146 H (70-99(Fasting)) mg/dl Globulin 2.3 L (2.5-4.0) gm/dl Urine Glucose (UA) 1+ H (Negative) Urine Ketones Trace H (Negative) Ur Leukocyte Esterase Trace H (Negative) U Epithel Cells (Auto) 3-5 H (0-2) /hpf Salicylates < 3.0 L (3.0-30) mg/dl Acetaminophen < 3 L (10-30) ug/ml ECG Additional Comments: ECG revealed SR at 74 bpm; QTc 432 Code Status & VTE Plan Code Status Full code (in the setting of overdose and presumed suicide attempt, did not directly ask patient; please reassess after cleared by psychiatry) VTE Prophylaxis Plan VTE Prophylaxis will be ordered: Yes Supervising Physician Co-Signing Physician Notes I have personally seen, evaluated and examined the patient. I have also personally discussed the management of the patient with the resident physician/JOSHUA and I agree with the exam findings documented in the history and physical examination and the documented assessment and plan unless otherwise stated below. Brief Exam: In general is a 68-year-old female she is alert and oriented x 3 at the time of my exam. She denies any pain. She does admit that this was probably an attempt to harm herself although she is not suicidal or homicidal currently. States has been under a lot of stress just wanted to go to sleep to "get away". She has no specific complaints. She would like to speak to a psychiatrist once medically stable. HEENT: Normocephalic atraumatic. Heart: Regular rate and rhythm I do not appreciate murmur or rub or ectopy. Lungs: Clear bilaterally. Abdomen: Soft flat nontender positive bowel sounds no gross organomegaly. Extremities: Intact no clubbing cyanosis or edema. Neurologically she was somewhat drowsy when I first walked in the room she did wake up with verbal stimuli. She is alert and oriented x 3. There is no focal deficit on cranial nerve exam. Assessment/plan. Intentional ingestion/overdose of Seroquel admitted to. She is also on multiple other psych meds we will hold those for now overnight until psychiatry sees her in the morning and see how she does on the bus driver/monitor. Will do serial EKGs. Of written order to be called if QTc greater than 500. Which occurred a soda bicarbonate would be recommended. Please refer to orders for further planning. We are doing a one-on-one sitter for suicide precautions currently. PG Care Time/CCT Total # of Minutes Spent Total Time Spent with Patient: Total time spent is greater than 50% in coordination of care (as documented) at patient's floor/unit and/or counseling patient: C[place] [address] INT INP/OBS CARE 3/75MIN Patient Type Established Medical Decision Making Moderate Complexity Diagnoses Overdose T50.901A Insulin-requiring or dependent type II diabetes mellitus E11.9; Z79.4 Tobacco use Z72.0 Major depression, recurrent, chronic F33.9
--- NOTE | 2024-03-13 15:39 | Electrocardiogram Report ---
Test Reason : Blood Pressure : */* mmHG Vent. Rate : 74 BPM Atrial Rate : 74 BPM P-R Int : 146 ms QRS Dur : 88 ms QT Int : 390 ms P-R-T Axes : 63 -32 85 degrees QTcB Int : 432 ms Normal sinus rhythm Left axis deviation Low voltage QRS Poor R wave progression, consider anterior DE vs. lead placement vs. LVH Abnormal ECG When compared with ECG of 22-Sep-2023 19:26, QRS axis Shifted left Questionable change in initial forces of Anterior leads Confirmed by Bogdan Vergara ([id number]) on 03/13/2024 3:38:42 PM Referred By: Confirmed By: Bogdan Vergara
[2024-03-13 15:42] LABS: Thyroid Stimulating Hormone 0.32 uIu/ml (0.300-4.500)
[2024-03-13] MEDS ORDERED: DEXTROSE 50% 50 ML SYRINGE IV PRN (20:09)
[2024-03-13] MEDS ORDERED: GLUCAGON FOR INJ 1 MG VIAL SQ PRN (20:09)
[2024-03-13] MEDS ORDERED: GLUCOSE 10 TAB/TUBE PO PRN (20:09)
[2024-03-13] MEDS ORDERED: ACETAMINOPHEN 325 MG TAB PO PRN (20:09)
[2024-03-13] MEDS ORDERED: CARBOHYDRATES FOR HYPOGLYCEMIA PO PRN (20:09)
[2024-03-13] MEDS ORDERED: GLUCOSE 40% GEL 15 GM TUBE PO PRN (20:09)
[2024-03-13] MEDS: LANTUS PER UNIT CHARGE SQ SCH (20:46)
[2024-03-13] MEDS: INSULIN ASPART PER UNIT CHARGE SC SCH (20:46)
[2024-03-13] MEDS: lisinopril 20 MG TAB PO SCH (21:00)
--- OUTSIDE RECORDS SUMMARY | 2024-03-13 22:56 | External Medical Summary | Continuity of Care Document ---
Author Name Unknown Organization [facility] [place] [address] [place] [id number] Encounter [facility] [id number] Date(s): 02/15/24 - 02/15/24 [facility] [address] [facility] [address] [facility] Medical [facility] [address] [address] [phone] Encounter Diagnosis Controlled diabetes mellitus with hyperglycemia(Discharge Diagnosis) - 02/15/24 Discharge Disposition: Home or Self Care Attending Physician: FARIBA Heath, Heather Guaman Allergies, Adverse Reactions, Alerts No Known Allergies [...] 6Result Comment: 2023-07-27: Historical information-source unspecified Medications Aspir 81 oral delayed release tablet Start: 07/27/23 11:21:00 AM EST, 1 tab, PO, Daily Start Date: 07/27/23 Status: Ordered Basaglar KwikPen 100 units/mL subcutaneous solution 18 unit =, INJECT 18 UNITS SUBCUTANEOUSLY AT BEDTIME Start Date: 01/24/24 Status: Ordered buPROPion 150 mg/24 hours (XL) oral tablet, extended release Start: 09/24/23 10:52:00 AM EST Start Date: 09/24/23 Status: Ordered cholecalciferol Start: 01/17/24 3:10:00 PM EDT Start Date: 01/17/24 Status: Ordered Dexcom G7 Nutrition Educator Start: 01/17/24 3:40:00 PM EDT, See Instructions, Disp# 1 kit, Test three times daily, Note to Pharmacy: [email or web address], Pharmacy: [id number] Start Date: 01/17/24 Status: Ordered Dexcom G7 Sensor Start: 02/15/24 11:24:00 AM EDT, See Instructions, Disp# 10 kit, Refills: 3, Test three times daily,Note to Pharmacy: [email or web address];, Pharmacy: [id number] Start Date: 02/15/24 Status: Ordered insulin aspart 100 units/mL injectable solution Start: 01/24/24 9:11:00 PM EDT, See Instructions, Disp# 15 mL, Refills: 1, Use sliding scale dosage based on BSG, Pharmacy: [id number] Start Date: 01/24/24 Status: Ordered LaMICtal 25 mg oral tablet Start: 02/15/24 11:04:00 AM EDT, 1 tab, PO, bid Start Date: 02/15/24 Status: Ordered levothyroxine Start: 07/27/23 11:22:00 AM EST, 112, PO, Daily Start Date: 07/27/23 Status: Ordered lisinopril 20 mg oral tablet Start: 10/15/23 1:16:00 AM EDT, 20 mg =, PO, bid, Disp# 60 tab, Refills: 1, Pharmacy: [id number] Start Date: 10/15/23 Stop Date: 12/14/23 Status: Ordered lisinopril 20 mg oral tablet Start: 02/15/24 11:04:00 AM EDT, 1 tab, PO, Daily Start Date: 02/15/24 Status: Ordered lisinopril 20 mg oral tablet Start: 02/15/24 11:06:00 AM EDT, 2 tab, PO, Daily Start Date: 02/15/24 Status: Ordered multivitamin Start: 07/27/23 11:23:00 AM EST, 1 tab, PO, Daily Start Date: 07/27/23 Status: Ordered pravastatin 10 mg oral tablet Start: 09/24/23 11:31:00 AM EST, 1 tab Start Date: 09/24/23 Status: Ordered pravastatin 40 mg oral tablet Start: 02/15/24 11:06:00 AM EDT, 1 tab, PO, Daily Start Date: 02/15/24 Status: Ordered Probiotic Formula Start: 01/17/24 3:09:00 PM EDT Start Date: 01/17/24 Status: Ordered Seroquel 50 mg oral tablet Start: 01/17/24 3:36:00 PM EDT, 1 tab, PO, qhs Start Date: 01/17/24 Status: Ordered Mental Status 02/15/24 Barriers to Learning one year None evide nt Mandatory Health Literacy Documentation Yes Health Literacy Communication Barriers N ever Primary Language Czech Problem List Condition Confirmation Course Effective Dates Status H ealth Status Informant Anemia Confirmed Active History of TIA (transient ischemic attack) Confirmed Active Hypertension Confirmed Active Hypothyroidism Confirmed Active Anxiety and depression Confirmed Active Type 2 diabetes mellitus Confirmed Active Diagnosis Diagnosis Type Effective Dates Health Status Clinical Service Informant Controlled diabetes mellitus with hyperglycemia Discharge Diagnosis 02/15/24 Non-Specified Vital Signs Most recent to oldest [Reference Range]: 1 Patient Weight 62.3 kg (02/15/24 11:16 AM) Temperature [36.5-37.9 DegC] 36.5 DegC (02/15/24 11:16 AM) Blood Pressure 138/70mmHg (02/15/24 11:16 AM) Social History Social History Type Response Smoking Status Former Smoker, quit within 31 days - 1 yr Sex Female Patient Care team information Care Team Personnel Name: DO Stroud Sameer Position: Resident Member Role: Lifetime Relationship Address: Address: [address] [address] Care Team Related Persons Name: RIC DICKENS Address: home [id number] [place] [phone]
--- OUTSIDE RECORDS SUMMARY | 2024-03-13 22:56 | External Medical Summary | Continuity of Care Document ---
Author Name Unknown Organization [facility] [address] [place] [phone] Encounter [facility] [id number] Date(s): 02/09/24 - 02/09/24 [facility] 207 [facility] [address] [address] [place] [phone] Discharge Disposition: Home or Self Care Attending Physician: MD Patino Christopher Allergies, Adverse Reactions, Alerts No Known Allergies [...] Start Date: 01/17/24 Status: Ordered Dexcom G7 Scale And Skip Car Operator Start: 01/17/24 3:40:00 PM EDT, See Instructions, Disp# 1 kit, Test three times daily, Note to Pharmacy: [email or web address], Pharmacy: [facility] Start Date: 01/17/24 Status: Ordered Dexcom G7 Sensor Start: 01/17/24 3:41:00 PM EDT, See Instructions, Disp# 3 kit, Test three times daily, Note to Pharmacy: [email or web address];, Pharmacy: [facility] 2128 Start Date: 01/17/24 Status: Ordered insulin aspart 100 units/mL injectable solution Start: 01/24/24 9:11:00 PM EDT, See Instructions, Disp# 15 mL, Refills: 1, Use sliding scale dosage based on BSG, Pharmacy: [facility] 2128 Start Date: 01/24/24 Status: Ordered levothyroxine Start: 07/27/23 11:22:00 AM EST, 112, PO, Daily Start Date: 07/27/23 Status: Ordered lisinopril 20 mg oral tablet Start: 10/15/23 1:16:00 AM EDT, 20 mg =, PO, bid, Disp# 60 tab, Refills: 1, Pharmacy: [facility] 2128 Start Date: 10/15/23 Stop Date: 12/14/23 Status: Ordered multivitamin Start: 07/27/23 11:23:00 AM EST, 1 tab, PO, Daily Start Date: 07/27/23 Status: Ordered pravastatin 10 mg oral tablet Start: 09/24/23 11:31:00 AM EST Start Date: 09/24/23 Status: Ordered Probiotic Formula Start: 01/17/24 3:09:00 PM EDT Start Date: 01/17/24 Status: Ordered Seroquel 50 mg oral tablet Start: 01/17/24 3:36:00 PM EDT, 1 tab, PO, qhs Start Date: 01/17/24 Status: Ordered Problem List Condition Confirmation Course Effective Dates Status H ealth Status Informant Anemia Confirmed Active History of TIA (transient ischemic attack) Confirmed Active Hypertension Confirmed Active Hypothyroidism Confirmed Active Anxiety and depression Confirmed Active Type 2 diabetes mellitus Confirmed Active Social History Social History Type Response Smoking Status Former Smoker, quit within 31 days - 1 yr Sex Female Patient Care team information Care Team Personnel Name: DO Maximus, Terell Position: Resident Member Role: Lifetime Relationship Address: Address: [address] [place] [id number] Care Team Related Persons Name: DICKENSRIC Address: home [address] [place], [place] [id number]
[2024-03-14] MEDS: PANTOprazole 40 MG TAB PO ONE (01:20)
[2024-03-14 05:13] LABS: Basophils # (auto) 0.02 K/uL (0.00-0.20); Basophils % (auto) 0.3 %; Eosinophils # (auto) 0.13 K/uL (0.00-0.50); Eosinophils % (auto) 1.9 %; Hematocrit (blood only) 35.2 % (37.0-47.0); Hemoglobin 11.8 g/dl (12.0-16.0); Immature Granulocytes # (auto) 0.03 K/uL (0.01-0.20); Immature Granulocytes % (auto) 0.4 %; Lymphocytes # (auto) 1.75 K/uL (1.20-3.40); Lymphocytes % (auto) 25.7 %; Mean Corpuscular Hemoglobin 31.3 pg (25.0-34.0); Mean Corpuscular Hgb Conc 33.5 g/dL (32.0-36.0); Mean Corpuscular Volume 93.4 fL (80.0-100.0); Mean Platelet Volume 10.7 fL (9.4-12.4); Monocytes # (auto) 0.33 K/uL (0.11-0.59); Monocytes % (auto) 4.8 %; Neutrophils # (auto) 4.56 K/uL (1.40-6.50); Neutrophils % (auto) 66.9 %; Platelet Count 228 K/uL (130-400); RDW Standard Deviation 47.8 fL (36.4-46.3); Red Blood Count 3.77 M/uL (4.20-5.40); White Blood Count 6.82 K/ul (4.8-10.8)
[2024-03-14 05:23] LABS: BUN Creatinine Ratio 13.9 (10-20); Calcium 8.9 mg/dl (8.6-10.3); Creatinine Clr Calc Pharmacy 60.3 ml/min; Est GFR (African American) 89.1 ml/min; Est GFR (Non-African American) 76.9 ml/min; Potassium 4.2 mmol/L (3.5-5.1)
[2024-03-14] MEDS: LEVOTHYROXINE SODIUM 112 MCG TABLET PO SCH (06:49)
[2024-03-14 08:16] VITALS: BP 139/88; RESP 16; TEMP 98.1; O2SAT 94
[2024-03-14] MEDS: ASPIRIN 81 MG ECTAB PO SCH (09:48)
[2024-03-14] MEDS: ENOXAPARIN INJ 40 MG/0.4 ML SYR SQ SCH (09:48)
[2024-03-14] MEDS ORDERED: POLYETHYLENE (MIRALAX) 17 GM PACK PO PRN (11:58)
--- NOTE | 2024-03-14 12:56 | Electrocardiogram Report ---
Test Reason : Blood Pressure : */* mmHG Vent. Rate : 61 BPM Atrial Rate : 61 BPM P-R Int : 148 ms QRS Dur : 86 ms QT Int : 408 ms P-R-T Axes : 52 7 -6 degrees QTcB Int : 410 ms Normal sinus rhythm Anteroseptal infarct (cited on or before 18-Jun-2023) Abnormal ECG When compared with ECG of 13-Mar-2024 13:45, QRS axis Shifted right Questionable change in initial forces of Septal leads T wave inversion now evident in Inferior leads Nonspecific T wave abnormality, improved in Lateral leads Confirmed by Bogdan Vergara ([id number]) on 03/14/2024 12:56:06 PM Referred By: REFERRED SELF Confirmed By: Bogdan Vergara
--- NOTE | 2024-03-14 12:56 | Psychiatric Consultation ---
Date of Consultation March 14, 2024 Impression / Recommendations Impression Lana is admitted medically following an intentional overdose suicide attempt. Diagnostically consistent with MDD in the context of ongoing stressors including medical challenges, loss of some of her previous independence/activities that brought her a sense of purpose and meaning and stress about contemplating a transition from her longtime home to personal care housing. Acute risk of self- harm remains elevated and high given suicide attempt requiring medical admission, major depressive symptoms, social isolation, guilt, feeling like a burden, unwillingness to seek treatment. Given elevated risk of harm to self they meet criteria for inpatient psychiatric care for diagnostic clarification, safety/stabilization, development of additional coping skills, medication management and disposition/safety planning once medically stable. If they do not agree to voluntary treatment at that time they will meet criteria for 302 status based on severity of suicide attempt and ongoing modifiable risk factors. Overall, I spent a total of 60 minutes with this case including review of chart records, review of labwork, review of EKG QTc, direct evaluation of the patient at bedside, counseling the patient, discussion of the patient with the hospitalist provider, discussion with the psychiatric liason during clinical rounds and documentation in the electronic health record. (1) Medication overdose: Encounter type: initial encounter Injury intent: intentional self-harm Qualified Code(s): T50.902A - Poisoning by unspecified drugs, medicaments and biological substances, intentional self-harm, initial encounter (2) Major depression, recurrent, chronic: Plan -Continue 1-on-1 and suicide precautions for risk of harm to self -Do not discharge or allow to leave AMA -Hold psych medications for now -Once medically cleared plan for psychiatric hospitalization (either 201 or 302 status). Psych History Identifying Data 68 yo woman with a history of MDD, tobacco use, HTN, diabetes, vertigo, dyslipidemia, diverticulitis, and GERD admitted medically following overdose of Seroquel. Psychiatry consulted for risk assessment and recommendations. Chief Complaint "I couldn't force myself to go out". History of Present Illness Lana was admitted medically after intentionally taking extra Seroquel (12-15 tablets of 50mg strength) due to a desire to fall asleep and was ambivalent about whether or not she as a result of this. Reportedly was on the phone with someone who noticed her slurring her words and that individual reached out to 911. She admits to taking extra quetiapine, not with the intention to , but because she felt indifferent about living and believed it would be easier for her family. She reports ongoing depression since she broke her femur last June and that she hasn't felt like herself since then. 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 She lives alone and feels that loneliness and isolation are significant factors contributing to her depression. She has considered moving to a long term community but is concerned about the cost. She recognizes that "I need to get out of this house" but also "I don't know what to do about it" as she feels not ready yet to make the big decision to sell her house and move into a more personal care type housing situation. She was admitted to the [facility] in September. She states that her depression had improved slightly with therapy after that but worsened again last week and over the weekend. She denies any specific recent event or family issue that may have triggered the worsening of her depression but rather ongoing isolation, difficulty deciding what to do about her living situation and multiple health issues since breaking her femur in June including sciatica, eye infections, and diverticulitis, which have further disrupted her life and contributed to her depression. She has been experiencing difficulty leaving her house due to anxiety and feels worried about everything. She is unsure if she has experienced panic attacks but describes episodes of her heart beating hard. She endorses depressive symptoms including anhedonia, low motivation, low energy, poor sleep with early childhood education instructor awakenings, low self-worth and feeling like a burden to others. She reports her sleep has improved since starting the quetiapine, but still has early childhood education instructor awakenings. Denies current SI but also somewhat ambivalent about surviving the overdose. Feels like if she had it would have been easier on her family. She is currently prescribed psychiatric medications of bupropion, escitalopram 10mg daily (was recently started 2 weeks ago), and quetiapine 50mg qhs. She was also previously on lamotrigine in December for anxiety. Allergies Allergy/AdvReac Type Severity Reaction Status Date / Time No Known Allergies Allergy Verified 01/06/24 08:53 Home Medications Medication Instructions Recorded Confirmed Type levothyroxine 112 mcg tablet 112 mcg PO DAILYBB 11/22/21 03/13/24 History (Euthyrox) aspirin 81 mg tablet,delayed 81 mg PO QAM 06/18/23 03/13/24 History release insulin aspart U-100 100 unit/mL 1 sliding scale dose subcut 09/04/23 03/13/24 Rx (3 mL) subcutaneous pen (Novolog USEASDIRECTD #15 mL FlexPen U-100 Insulin aspart) acetaminophen 500 mg tablet 1,000 mg (2 x 500 mg) PO Q8H PRN 09/11/23 03/13/24 Rx (Tylenol Extra Strength) pain #1 tab bupropion HCl 150 mg 24 hr tablet, 150 mg PO QAM #30 tabs 09/11/23 03/13/24 Rx extended release multivitamin with folic acid 400 1 tab PO DAILY #1 tab 09/11/23 03/13/24 Rx mcg tablet (Daily-Arleen (with folic acid)) docusate sodium 100 mg capsule 100 mg PO BID PRN Constipation 09/22/23 03/13/24 History cholecalciferol (vitamin D3) 25 25 mcg PO QAM 11/23/23 03/13/24 History mcg (1,000 unit) capsule lactobacillus combination no.9 4 4,000 mmu cells PO QAM 11/23/23 03/13/24 History billion cell capsule (Adult 50 Plus Probiotic) quetiapine 50 mg tablet (Seroquel) 50 mg PO HS PRN Sleep 12/22/23 03/13/24 History escitalopram oxalate 10 mg tablet 10 mg PO DAILY 03/13/24 03/13/24 History insulin glargine 100 unit/mL (3 18 unit subcut HS 03/13/24 03/13/24 History mL) subcutaneous pen (Basaglar KwikPen U-100 Insulin) lisinopril 20 mg tablet 20 mg PO BID 03/13/24 03/13/24 History Patient History Medical History History of suicidal ideation (2014) Hx of fracture of left hip (06/2023) surgery Hx of fall (06/2023) fx femure, head injury, scalp lac Chronic hyponatremia Nausea and vomiting Iron deficiency 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, "I don't walk like i did before" History of colon polyps Epigastric pain Hx of bronchitis (2017) tx with inhaler at the time, no issues since Hyperlipemia Hypertension Hypothyroidism History of stroke (2021) "minor" no deficits, no neurologist, treated at [facility] and [facility] Hx of major depression Hx of diverticulitis of colon Diverticulosis Diabetes mellitus IDDM Surgical History Hx of tonsillectomy Hx of esophagogastroduodenoscopy Hx of colonoscopy with polypectomy History of (1991) History of right hip replacement (2020) History of open reduction and internal fixation (ORIF) procedure (11/2020) right wrist History of open reduction and internal fixation (ORIF) procedure (06/2023) Left femur, due to fall Family History Brother Hypertension Social History Smoking Status: Current every day smoker Tobacco Type: Cigarettes Second Hand Exposure: No; Do You Dip or Chew Tobacco: No; Hx Alcohol Use: No Hx Substance Use: No Preferred Language: Arabic Communication Ability: Effective Electrician Station Assistant Required: No Beliefs That Will Affect Care: None marital status: / Current Living Situation: Alone Current Living Situation Comment: living with daughter since hip fracture current occupational status: retired Feels Safe at Home: Yes Gender Identity: Female Assistive Devices: Cane and Walker Physical Exam Psychiatric: Orientation: alert and oriented x 3 Apperance: appropriately dressed and appropriately groomed Eye Contact: good eye contact Motor Behavior: no abnormal motor movements Speech: normal rate/rhythm/volume of speech Affect: + depressed affect Mood: + depressed mood, + anxious mood and + irritable mood Thought Process: + circumstantial thought process Thought Content: reality based without delusions, + worthlessness, + loneliness and + guilt Suicidal Thoughts: denies suicidal thoughts (but s/p attempt and ambivalent about being alive) Homicidal Thoughts: denies homicidal thoughts Hallucinations: no auditory hallucinations and no visual hallucinations Cognition: attention grossly intact and language grossly intact Estimated Intelligence: consistent with education level Insight: + fair insight Judgment: + limited judgement Vital Signs (Past 24 Hours): Last Vital Signs Temp 36.7 C 03/14/24 08:15 Pulse 63 03/14/24 08:24 Resp 16 03/14/24 08:15 BP 139/88 03/14/24 08:15 Pulse Ox 94 03/14/24 08:15 O2 Del Method Room Air 03/14/24 08:15 Results & Data (PSY) Medications Administered Aspirin (Aspirin 81 Mg Ectab) 81 mg PO QAM [facility] Stop: 04/13/24 08:59 Last Admin: 03/14/24 09:48 Dose: 81 mg Documented By: JULYR Enoxaparin Sodium (Enoxaparin Inj 40 Mg/0.4 Ml Syr) 40 mg SQ Q24H [facility] Stop: 04/13/24 08:59 Last Admin: 03/14/24 09:48 Dose: 40 mg Documented By: MARYSE Insulin Aspart (Insulin Aspart Per Unit Charge) 0 units SC ACHS [facility] Stop: 04/12/24 20:59 Last Admin: 03/14/24 09:46 Dose: 3 units Documented By: MARYSE Co-signed By: [id number] Admin: 03/13/24 20:46 Dose: 3 units Documented By: NOVA Co-signed By: ANA Insulin Glargine (Lantus Per Unit Charge) 9 units SQ BID [facility] Stop: 04/12/24 20:59 Last Admin: 03/14/24 09:46 Dose: 9 units Documented By: MARYSE Co-signed By: [id number] Admin: 03/13/24 20:46 Dose: 9 units Documented By: NOVA Co-signed By: ANA Levothyroxine Sodium (Levothyroxine Sodium 112 Mcg Tablet) 112 mcg PO DAILYBB [facility] Stop: 04/13/24 06:29 Last Admin: 03/14/24 06:49 Dose: 112 mcg Documented By: KARLENE Lisinopril (Lisinopril 20 Mg Tab) 20 mg PO BID [facility] Stop: 04/12/24 20:59 Last Admin: 03/14/24 09:48 Dose: 20 mg Documented By: Admin: 03/13/24 21:00 Dose: 20 mg Documented By: NOVA Coding Level of Care Code 41525 IN/OBS CONSULT LVL 4,60M Diagnoses Medication overdose T50.902A Encounter type: initial encounter Injury intent: intentional self-harm Major depression, recurrent, chronic F33.9
--- NOTE | 2024-03-14 14:48 | Discharge Summary ---
Date of Service March 14, 2024 Admission HPI Per Admitting Provider Lana is a 68-year-old female with PMH of major depressive disorder, tobacco use, HTN, diabetes, vertigo, dyslipidemia, diverticulitis, and GERD. She presented on the morning of 03/13 after intentionally taking 12 to 15 tablets of 50 mg Seroquel. Patient was reportedly speaking to someone on the phone afterwards, who noted slurred speech and called EMS. Patient reports she took the Seroquel this morning because she was depressed and that she "wanted to sleep and not deal with the day". She denies history of prior suicide attempts. She also denies current suicidal ideations, thoughts of self-harm, or thoughts of harming others. She reports that her depression started to spiral after she broke her femur in July 2023, and has gradually gotten worse. Patient lives alone by herself. She reports she has been going to therapy and seeing a psychiatrist, but her depression has gotten worse over the past month. She recently started smoking tobacco cigarettes again; 8 to 10 cigarettes/day. She denies any alcohol use, recreational drug use, or coingestions this morning. Patient did not take her regular morning medications. She reports she did take her insulin this morning as she is a diabetic and uses a Dexcom. She reports she was having some chest palpitations this morning, but none at present. No new concerns at time of admission. ED Course: NSS 1000 mL IV ROS: Patient endorses dizziness/lightheadedness when standing, cold intolerance, ongoing difficulties with vision (which patient attributes to recent eye infections, for which she took antibiotic drops), and chest palpitations this morning (which resolved). Patient denies fever, chills, sweating, headache, chest pain, chest pressure, SOB, pleuritic CP, cough, abdominal pain, numbness or tingling in the arms or legs, or nausea/vomiting. Admission Exam Per Admitting Provider General: no acute distress; non-toxic appearing; cooperative HEENT: normocephalic, atraumatic; right sclera is mildly erythematous; PERRLA; vision and hearing grossly intact Neck: supple; no lymphadenopathy; trachea midline Skin: warm, dry without signs of tenting; no cyanosis; no rashes, bruising, lesions, or erythema noted CV: chest wall NTP; RRR; S1/S2 normal; no murmurs/rubs/gallops; pulses intact and symmetric at radial, DP, and PT Lungs: no acute respiratory distress; symmetrical chest wall expansion; clear breath sounds across all lung chapa w/o adventitious sounds; no wheezing ABD: Soft, NTP; BS present; no rebound/guarding; no distention MSK: no tics or fasciculations; no edema noted in the LEs b/l, nonerythematous Neuro: A&Ox3; normal mood and affect; fluent speech; no focal deficits; sensation grossly intact in the LEs b/l Principal Diagnosis Intentional drug overdose as a suicide attempt Discharge Exam General: Awake, conversant Heart: S1, S2/regular rate and rhythm, no murmur rubs or gallops Lungs: Clear to auscultation bilaterally. Normal effort Abdomen: Soft/nontender/nondistended. No hepatosplenomegaly Extremities: No clubbing/cyanosis. No edema Behavior: Appropriate, cooperative Discharge Data Allergies Allergy/AdvReac Type Severity Reaction Status Date / Time No Known Allergies Allergy Verified 01/06/24 08:53 Consultations 03/13/24 15:38 Consult Psychiatry Routine Hospital Course (1) Overdose: Intentional overdose on Seroquel 50 mg tablets; patient reportedly took 12-15 tablets on the morning of 03/13 Hx of depression that has been gradually worsening since August 2023, with an acute overlock elastic attacher the past month Patient denies prior suicide attempts She denies suicidal ideations, thoughts of self-harm, or thoughts of harming others at time of admission ED spoke to poison control who recommended continuous telemetry monitoring and repeat QTc checks Psychiatry consulted One-to-one observation for now with suicide precautions QTc improved. 410 today. The patient is medically cleared for discharge to inpatient psych unit (2) Insulin-requiring or dependent type II diabetes mellitus: Last A1c at 8.4% on 01/20/2024 Lantus 9 u BID while inpatient SSI; with target BSG range 110-140mg/dL, CF 40, carb ratio 13 T2DM diet BSG ACHS Adjust regimen as needed Discharge on home regimen (3) Tobacco use: Patient reports she recently started smoking again as her depression has gotten worse Declines nicotine patch at this time (4) Major depression, recurrent, chronic: Hold Seroquel, escitalopram, bupropion Plan Discharge to inpatient psych Total Time Total Time Spent Total Time Spent (In Minutes): 35 Discharge Plan Discharge Items Patient Disposition: Transfer Behavioral Health Fac Reason For Visit: OVERDOSE ON SEROQUEL (INTENTIONAL) Discharge Diagnosis: Intentional drug overdose as a suicide attempt Condition on Discharge: Fair Activity: Resume your previous activity Non-emergency contact: Primary Care Provider Call non-emergency contact if: you have any medication questions and your symptoms worsen Follow-up/Referrals: Heather Heath PA-C [Primary Care Provider] - Diet: Carb Consistent or DM2 and Heart Healthy Addtl Attending Provider Instructions: Advised to follow-up with PCP in 1 week Pending Studies at Discharge: No Stand-Alone Forms: My [facility] vidIQ Medications and DC Order Prescriptions: Continued cholecalciferol (vitamin D3) 25 mcg (1,000 unit) capsule 25 mcg PO QAM Rx Instructions: Unable to verify OTC meds at this date/time. Adult 50 Plus Probiotic 4 billion cell capsule 4,000 mmu cells PO QAM Rx Instructions: Unable to verify OTC meds at this date/time. levothyroxine [Euthyrox] 112 mcg tablet 112 mcg PO DAILYBB aspirin 81 mg Tablet,Delayed Release (Dr/Ec) 81 mg PO QAM Rx Instructions: Unable to verify OTC meds at this date/time. acetaminophen [Tylenol Extra Strength] 500 mg Tablet 1,000 mg PO Q8H PRN (Reason: pain) Qty: 1 0RF Rx Instructions: Unable to verify OTC meds at this date/time. multivitamin with folic acid [Daily-Arleen (with folic acid)] 400 mcg Tablet 1 tab PO DAILY Qty: 1 0RF Rx Instructions: Unable to verify OTC meds at this date/time. lisinopril 20 mg tablet 20 mg PO BID insulin glargine [Basaglar KwikPen U-100 Insulin] 100 unit/mL (3 mL) insulin pen 18 unit SUBCUT HS Rx Instructions: if having consecutive lows, decrease to 15 u until contact primary care office insulin aspart U-100 [Novolog FlexPen U-100 Insulin] 100 unit/mL (3 mL) Insulin Pen 1 sliding scale dose subcut USEASDIRECTD MDD 25 unit Qty: 15 0RF Rx Instructions: -Goal BSG Range: Low 110_mg/dL, High 140_mg/dL --Correction Factor: 20_mg/dL/unit --Carbohydrate ratio = _12_ g/unit docusate sodium 100 mg capsule 100 mg PO BID PRN (Reason: Constipation) Rx Instructions: Unable to verify OTC meds at this date/time. Held bupropion HCl 150 mg Tablet Extended Release 24 Hr 150 mg PO QAM Qty: 30 0RF Hold Instructions: Resume on 03/21/24. Or until cleared by psychiatry escitalopram oxalate 10 mg tablet 10 mg PO DAILY Hold Instructions: Resume on 03/21/24. Or until cleared by psychiatry quetiapine [Seroquel] 50 mg Tablet 50 mg PO HS PRN (Reason: Sleep) Hold Instructions: Resume on 03/21/24. Or until cleared by psychiatry Discharge Orders: Discharge Order (Routine); Ordered 03/14/24 Ordered By: Sarina Nicole Admission Data Admit Date/Time: 03/13/24 16:10 Attending Provider: Sarina Nicole Admit Provider: Rustam Latham Primary Care Provider: Heather Heath Other Providers: Joann Sy; Chucky Dawn; Tomy Huggins Jr; Manda Fields; Maggie Campbell Vikas R
[2024-03-14] MEDS: DOCUSATE SODIUM 100 MG CAP PO PRN (14:58)
[2024-03-14 15:28] VITALS: PULSE 70
== END 2024-03-14 16:37 | DRG 918 ==
LOC: ED 13:28 → SUATTDRO 16:10 → EDINP 16:10 → 2N 20:10

== ENCOUNTER 2024-03-14 13:53 | Inpatient (IN) ==
[2024-03-14] MEDS ORDERED: ALUMINUM/MAGNESIUM SUSP 30 ML UDC PO PRN (13:55)
[2024-03-14] MEDS ORDERED: hydrOXYzine HCl 25 MG TAB PO PRN ×2 (13:55)
[2024-03-14] MEDS ORDERED: ACETAMINOPHEN 325 MG TAB PO PRN (13:55)
[2024-03-14] MEDS ORDERED: BISMUTH SUBSALICYLATE LIQD 236 ML PO PRN (13:55)
[2024-03-14] MEDS ORDERED: SODIUM CHLORIDE 0.65% NA SOLN 45 ML (OCEAN) PRN (13:55)
[2024-03-14] MEDS ORDERED: PHARMACY GLYCEMIC MGMT CONSULT PRN (14:44)
--- NOTE | 2024-03-14 15:11 | Pharmacy Report ---
Pharmacy Glycemic Short Note 2 - Date of Service March 14, 2024 - Glycemic Short OUTPATIENT ANTIDIABETIC REGIMEN: * Basaglar 18 units HS, Novolog SSI ASSESSMENT: * 68 year old admitted to [facility]. Pharmacy consulted for glycemic management. Patient is type 2 diabetic. Currently receiving Lantus 9 units BID. Fasting BSG this AM 208 mg/dL - anticipate improvement with ongoing basal dosing. May consider transitioning back to once daily basal insulin tomorrow to reflect home dosing. Will plan to continue same novolog dosing for now. PLAN FOR INPATIENT GLYCEMIC CONTROL: * Hold outpatient oral diabetes medications * Basal insulin * Lantus 9 units SQ BID * Bolus insulin * NovoLog per scale ACHS or Q6hrs while NPO * Goal Range: Low 110 mg/dL - High 140 mg/dL * Correction Factor: 40 mg/dL/unit * Nutritional / Prandial insulin per carb ratio of 1 unit per 15 grams CHO consumed
[2024-03-14] MEDS ORDERED: GLUCOSE 10 TAB/TUBE PO PRN (15:15)
[2024-03-14] MEDS ORDERED: GLUCAGON FOR INJ 1 MG VIAL IM PRN (15:15)
[2024-03-14] MEDS ORDERED: DEXTROSE 50% 50 ML SYRINGE IV PRN (15:15)
[2024-03-14] MEDS ORDERED: GLUCOSE 40% GEL 15 GM TUBE PO PRN (15:15)
[2024-03-14] MEDS: INSULIN ASPART PER UNIT CHARGE SC SCH (18:41)
[2024-03-14] MEDS: LANTUS PER UNIT CHARGE SC SCH (21:41)
[2024-03-15 06:43] VITALS: RESP 16
--- NOTE | 2024-03-15 08:52 | History & Physical ---
Date of Service March 15, 2024 Impression / Recommendations Impression LANA DICKENS is a 68-year-old F who currently lives in [place] alone, has a history of Major Depressive Disorder, and was admitted on 03/14/24 16:39 on a 201 voluntary commitment for suicide attempt via Seroquel ingestion following medical admission for stabilization. Diagnostically consistent with major depressive disorder, recurrent episode with anxious distress. Discussed medication treatment options in detail. Discussed risks, benefits and alternatives. Patient would like to increase and consented to escitalopram for depression as well as continuing Wellbutrin for depression and nicotine cessation and starting mirtazapine for sleep/depression. Reviewed side effects including but not limited to: GI, GOINS, sedation, increased appetite, elevated BP, elevated HR, decreased appetite, increased anxiety. MNPR due to dexcom device with frequent alarm which is disruptive to others Overall I spent a total of 75 minutes for this admission including review of chart records, review of labwork, direct evaluation of the patient, counseling the patient, ordering medication, risk assessment, discussion with the psychiatric liason RN and documentation in the electronic health record. (1) Major depressive disorder, recurrent episode, severe with anxious distress: (2) Insomnia: Plan 03/15/2024: The patient was admitted to the [facility] ([facility]) on q15 min checks (behavioral with suicide precautions) for safety. The patient will participate in group, recreational, and milieu therapies and will be offered additional individual and family sessions as clinically appropriate. -Increase escitalopram to 15mg qd -Continue Wellbutrin XL 150mg qd -Discontinue PERIOPERATIVE ASSISTANT Seroquel 50mg HS prn -Start mirtazapine 15mg HS Inventory Assets Strengths: supportive relationships, willing to get treatment Needs: safety and stabilization, medication adjustment, additional coping skills, increased outpatient services Suicide Risk Level Suicide Risk Level: High-Moderate (q15 min suicide checks) (s/p suicide attempt with ongoing depression and irritability, feels safe in the hospital) Suicide Risk Level Comments: Risk Factors Assessment Male: No : Yes Do You Have Access To A Gun?: No Health Problems: Yes Mental Health Diagnoses: Yes Substance Use Disorders: No Previous Attempt: Yes Family History of Suicide: Yes Previous Psychiatric Hospitalization: Yes Protective Factors Assessment Stable Relationships: Yes Supportive Family: Yes Good Rapport with Provider: Yes Psychiatric History Identifying Data LANA DICKENS is a 68-year-old F who currently lives in [place] alone, has a history of Major Depressive Disorder, and was admitted on 03/14/24 16:39 on a 201 voluntary commitment for suicide attempt via Seroquel ingestion following medical admission for stabilization. Chief Complaint "This is just a horrible horrible time in my life". History of Present Illness Lana describes worsening depression and suicide attempt via Seroquel overdose in the context of multiple psychosocial stressors including social isolation, contemplating decision to move into a more structured personal senior care environment, and medical challenges since June 2023. She reports she feels "embarrassed" about the attempt. I just had a "bad bad weekend" and "I don't know why I did it". She wishes we could help change her to feel "more normal" and to regain her previous perspective on life. She reports having quit smoking previously but recently started again and knows this isn't good for her health. Feels increased anxiety and restlessness today. Further information per my psychiatry consult on 03/14/2024: "Lana was admitted medically after intentionally taking extra Seroquel (12-15 tablets of 50mg strength) due to a desire to fall asleep and was ambivalent about whether or not she as a result of this. Reportedly was on the phone with someone who noticed her slurring her words and that individual reached out to 911. She admits to taking extra quetiapine, not with the intention to , but because she felt indifferent about living and believed it would be easier for her family. She reports ongoing depression since she broke her femur last June and that she hasn't felt like herself since then. 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 She lives alone and feels that loneliness and isolation are significant factors contributing to her depression. She has considered moving to a fpc community but is concerned about the cost. She recognizes that "I need to get out of this house" but also "I don't know what to do about it" as she feels not ready yet to make the big decision to sell her house and move into a more personal care type housing situation. She was admitted to the [facility] in September. She states that her depression had improved slightly with therapy after that but worsened again last week and over the weekend. She denies any specific recent event or family issue that may have triggered the worsening of her depression but rather ongoing isolation, difficulty deciding what to do about her living situation and multiple health issues since breaking her femur in June including sciatica, eye infections, and diverticulitis, which have further disrupted her life and contributed to her depression. She has been experiencing difficulty leaving her house due to anxiety and feels worried about everything. She is unsure if she has experienced panic attacks but describes episodes of her heart beating hard. She endorses depressive symptoms including anhedonia, low motivation, low energy, poor sleep with manager express awakenings, low self-worth and feeling like a burden to others. She reports her sleep has improved since starting the quetiapine, but still has manager express awakenings. Denies current SI but also somewhat ambivalent about surviving the overdose. Feels like if she had it would have been easier on her family. She is currently prescribed psychiatric medications of bupropion (has been on this since September), escitalopram 10mg daily (was recently started 2 weeks ago), and quetiapine 50mg qhs prn. She was also previously on lamotrigine in December for anxiety. " Psychiatric ROS notable for no current nor history of symptoms of norma, psychosis, PTSD, OCD nor eating disorder. Past Psychiatric History Outpatient Services: [facility] for psychiatry and therapy Previous Psych Admissions: [facility] 09/2023, [facility] 2016, [facility] 2014 Do You Have Access To A Gun?: No History of Previous Suicide Attempt: Yes (Seroquel overdose leading to this hospitalization) Past Medication Trials: Paxil, Wellbutrin, Lexapro, Xanax, Klonopin, Lamictal Allergies Allergy/AdvReac Type Severity Reaction Status Date / Time No Known Allergies Allergy Verified 01/06/24 08:53 Home Medications Medication Instructions Recorded Confirmed Type levothyroxine 112 mcg tablet 112 mcg PO DAILYBB 11/22/21 03/14/24 History (Euthyrox) aspirin 81 mg tablet,delayed 81 mg PO QAM 06/18/23 03/14/24 History release insulin aspart U-100 100 unit/mL 1 sliding scale dose subcut 09/04/23 03/14/24 Rx (3 mL) subcutaneous pen (Novolog USEASDIRECTD #15 mL FlexPen U-100 Insulin aspart) bupropion HCl 150 mg 24 hr tablet, 150 mg PO QAM #30 tabs 09/11/23 03/14/24 Rx extended release multivitamin with folic acid 400 1 tab PO DAILY #1 tab 09/11/23 03/14/24 Rx mcg tablet (Daily-Arleen (with folic acid)) docusate sodium 100 mg capsule 100 mg PO BID PRN Constipation 09/22/23 03/14/24 History cholecalciferol (vitamin D3) 25 25 mcg PO QAM 11/23/23 03/14/24 History mcg (1,000 unit) capsule lactobacillus combination no.9 4 4,000 mmu cells PO QAM 11/23/23 03/14/24 History billion cell capsule (Adult 50 Plus Probiotic) quetiapine 50 mg tablet (Seroquel) 50 mg PO HS PRN Sleep 12/22/23 03/14/24 History escitalopram oxalate 10 mg tablet 10 mg PO DAILY 03/13/24 03/14/24 History insulin glargine 100 unit/mL (3 18 unit subcut HS 03/13/24 03/14/24 History mL) subcutaneous pen (Basaglar KwikPen U-100 Insulin) lisinopril 20 mg tablet 20 mg PO BID 03/13/24 03/14/24 History pravastatin 40 mg tablet 40 mg PO DAILY 03/14/24 03/14/24 History Family History Family History of: Depression (uncle and mother) and Suicide Completion (sister) Alcohol History Hx of Alcohol Use Over the Past 12 Months: No AUDIT Total Score: 0 Smoking Use Have You Smoked or Used Tobacco Products in the Last 30 Days: Yes tobacco type: cigarettes Smoking Status: Current every day smoker (restarted two months ago) Smoking packs per day: 10 Substance History Hx of Prescription Med Misuse Over the Past 12 Months: Yes (seroquel overdose) Hx of Over the Counter Med Misuse Over the Past 12 Months: No Hx of Inhalent Misuse Over the Past 12 Months: No Hx of Organic Substance Use Over the Past 12 Months: No Hx of Illegal Substances/Street Drug Use Over Past 12 Months: No Problems as a Result of Past Substance Use: Attempted Suicide Personal History Highest Grade Completed: High School Graduate Marital Status: Number Of Children: 1 Beliefs That Will Affect Care: None Hx Legal Problems: No Hx Traumatic Life Events: Yes Patient History Medical History History of suicidal ideation (2014) Hx of fracture of left hip (06/2023) surgery Hx of fall (06/2023) fx femure, head injury, scalp lac Chronic hyponatremia Nausea and vomiting Iron deficiency 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, "I don't walk like i did before" History of colon polyps Epigastric pain Hx of bronchitis (2017) tx with inhaler at the time, no issues since Hyperlipemia Hypertension Hypothyroidism History of stroke (2021) "minor" no deficits, no neurologist, treated at [facility] and [facility] Hx of major depression Hx of diverticulitis of colon Diverticulosis Diabetes mellitus IDDM Surgical History Hx of tonsillectomy Hx of esophagogastroduodenoscopy Hx of colonoscopy with polypectomy History of (1991) History of right hip replacement (2020) History of open reduction and internal fixation (ORIF) procedure (11/2020) right wrist History of open reduction and internal fixation (ORIF) procedure (06/2023) Left femur, due to fall Family History Brother Hypertension Social History Smoking Status: Current every day smoker (restarted two months ago) Tobacco Type: Cigarettes Cigarettes Per Day: 10; Second Hand Exposure: No; Do You Dip or Chew Tobacco: No; Hx Alcohol Use: No Hx Substance Use: No Preferred Language: Hungarian Communication Ability: Effective Space Control Supervisor Required: No Beliefs That Will Affect Care: None marital status: / Current Living Situation: Alone Current Living Situation Comment: living with daughter since hip fracture current occupational status: retired Feels Safe at Home: Yes Gender Identity: Female Assistive Devices: Glasses and Walker Review of Systems Review of Systems: All systems reviewed & are unremarkable except as noted in HPI & below (eye irritation) Physical Exam Psychiatric: Orientation: alert and oriented x 3 Apperance: appropriately dressed and appropriately groomed Eye Contact: good eye contact Motor Behavior: no abnormal motor movements Speech: normal rate/rhythm/volume of speech Affect: + depressed affect and + anxious affect Mood: + depressed mood, + anxious mood and + irritable mood Thought Process: goal directed thought process Thought Content: reality based without delusions Suicidal Thoughts: denies suicidal thoughts (but s/p attempt), denies suicidal plan and denies suicidal intent Homicidal Thoughts: denies homicidal thoughts Hallucinations: no auditory hallucinations and no visual hallucinations Cognition: recent memory grossly intact, remote memory grossly intact, attention grossly intact and language grossly intact Estimated Intelligence: consistent with education level Insight: + limited insight Judgment: + limited judgement Vital Signs (Past 24 Hours): Last Vital Signs Temp 36.7 C 03/15/24 06:42 Pulse 69 03/15/24 06:42 Resp 16 03/15/24 06:42 BP 146/75 H 03/15/24 06:42 Pulse Ox 99 03/14/24 17:18 O2 Del Method Room Air 03/14/24 17:18 Exam Statement: A physical exam was performed on the medical floor by Dr. Nicole for the purposes of medical clearance. I accept that physical as correct and adequate for the purposes of the inpatient physical exam. Results & Data ([facility]) Laboratory Results Laboratory Results - last 24 hr 03/14/24 03/14/24 03/15/24 17:58 21:19 08:38 POC Glucose 161 H 181 H 83 Current Inpatient Medications Current Inpatient Medications: Current Inpatient Medications Acetaminophen (Acetaminophen 325 Mg Tab) 650 mg PO Q4H PRN PRN Reason: Headache or Minor Fever Stop: 04/13/24 13:54 Al Hydrox/Mg Hydrox/Simethicone (Aluminum/Magnesium Susp 30 Ml Udc) 30 ml PO Q4H PRN PRN Reason: GI Upset Stop: 04/13/24 13:54 Bismuth Subsalicylate (Bismuth Subsalicylate Liqd 236 Ml) 15 ml PO PRN PRN PRN Reason: Loose Stool Stop: 04/13/24 13:54 Dextrose (Dextrose 50% 50 Ml Syringe) 25 - 50 ml IV UD PRN; Protocol PRN Reason: Hypoglycemia Protocol Stop: 04/13/24 15:14 Glucagon (Glucagon For Inj 1 Mg Vial) 1 mg IM UD PRN; Protocol PRN Reason: Hypoglycemia Protocol Stop: 04/13/24 15:14 Glucose (Glucose 40% Gel 15 Gm Tube) 15 - 30 gm PO UD PRN; Protocol PRN Reason: Hypoglycemia Protocol Stop: 04/13/24 15:14 Glucose (Glucose 10 Tab/Tube) 4 - 8 tab PO UD PRN; Protocol PRN Reason: Hypoglycemia Protocol Stop: 04/13/24 15:14 Hydroxyzine HCl (Hydroxyzine Hcl 25 Mg Tab) 50 mg PO HSZ PRN PRN Reason: Insomnia Stop: 04/13/24 13:54 Hydroxyzine HCl (Hydroxyzine Hcl 25 Mg Tab) 25 mg PO Q4H PRN PRN Reason: Anxiety Stop: 04/13/24 13:54 Insulin Aspart (Insulin Aspart Per Unit Charge) 0 units SC ACHS SACHI Stop: 04/13/24 17:14 Last Admin: 03/14/24 21:41 Dose: 2 units Insulin Glargine (Lantus Per Unit Charge) 15 units SC HS SACHI Stop: 04/14/24 21:59 Magnesium Hydroxide (Magnesium Hydroxide Susp 30 Ml Udc) 30 ml PO DAILY PRN PRN Reason: Constipation Stop: 04/13/24 13:54 Miscellaneous (Carbohydrates For Hypoglycemia ) 15 - 30 gm PO UD PRN PRN Reason: Hypoglycemia Treatment Stop: 04/13/24 15:14 Miscellaneous Information (Pharmacy Glycemic Mgmt Consult) 1 each N/A UD PRN; Protocol PRN Reason: Consult Stop: 04/13/24 14:43 Sodium Chloride (Sodium Chloride 0.65% Na Soln 45 Ml ([place])) 1 - 2 sprays NA PRN PRN PRN Reason: Nasal Dryness/Congestion Stop: 04/13/24 13:54
[2024-03-15] MEDS: ESCITALOPRAM OXALATE 10 MG TAB PO SCH (12:06)
[2024-03-15] MEDS: PRAVASTATIN SOD 40 MG TAB PO SCH (12:08)
[2024-03-15] MEDS: buPROPion XL 150 MG TABCR PO SCH (12:08)
[2024-03-15] MEDS: LEVOTHYROXINE SODIUM 112 MCG TABLET PO SCH (12:08)
[2024-03-15] MEDS: ADVANCED PROBIOTIC 625 MG CAPSULE PO SCH (12:09)
[2024-03-15] MEDS: lisinopril 20 MG TAB PO SCH (12:09)
[2024-03-15] MEDS: MULTIVITAMIN TAB PO SCH (12:10)
[2024-03-15] MEDS: CHOLECALCIFEROL 25 MCG (1000 UNITS) TAB PO SCH (12:10)
[2024-03-15] MEDS: ASPIRIN 81 MG ECTAB PO SCH (12:10)
[2024-03-15] MEDS: OFLOXACIN 0.3% 75 DROPS/5 ML BTL OP SCH (12:11)
[2024-03-15] MEDS ORDERED: LANTUS PER UNIT CHARGE SC SCH ×4 (12:30→22:00)
--- NOTE | 2024-03-15 13:08 | Pharmacy Report ---
Pharmacy Glycemic Short Note 2 - Date of Service March 15, 2024 - Glycemic Short BSG Results (Last 24 hours): 03/14/24 03/14/24 03/15/24 17:58 21:19 08:38 POC Glucose 161 H 181 H 83 03/15/24 11:31 POC Glucose 294 H OUTPATIENT ANTIDIABETIC REGIMEN: * Basaglar 18 units HS, Novolog SSI ASSESSMENT: 03/15 * Patient received total of 30 units of insulin, of which 18 units were basal * Fasting BSG trending down this AM 83 mg/dL - will plan to scale back slightly to 15 units. Will dose once daily Lantus for easier transition on discharge. 03/14 * [address] [facility]. Pharmacy consulted for glycemic management. Patient is type 2 diabetic. Currently receiving Lantus 9 units BID. Fasting BSG this AM 208 mg/dL - anticipate improvement with ongoing basal dosing. May consider transitioning back to once daily basal insulin tomorrow to reflect home dosing. Will plan to continue same novolog dosing for now. PLAN FOR INPATIENT GLYCEMIC CONTROL: * Hold outpatient oral diabetes medications * Basal insulin * Lantus 15 units daily * Bolus insulin * NovoLog per scale ACHS or Q6hrs while NPO * Goal Range: Low 110 mg/dL - High 140 mg/dL * Correction Factor: 40 mg/dL/unit * Nutritional / Prandial insulin per carb ratio of 1 unit per 15 grams CHO consumed
[2024-03-15] MEDS: MIRTAZAPINE TAB 15 MG TAB PO SCH (21:56)
[2024-03-15] MEDS: LANTUS PER UNIT CHARGE SC SCH (21:59)
[2024-03-15] MEDS: DOCUSATE SODIUM 100 MG CAP PO PRN (22:05)
--- NOTE | 2024-03-16 08:49 | Psychiatric Progress Note ---
Date of Service March 16, 2024 Impression / Recommendations Impression ALBA DICKENS is a 68-year-old F who currently lives in [place] alone, has a history of Major Depressive Disorder, and was admitted on 03/14/24 16:39 on a 201 voluntary commitment for suicide attempt via Seroquel ingestion following medical admission for stabilization. Diagnostically consistent with major depressive disorder, recurrent episode with anxious distress. A: Ongoing depression, prominent loneliness. Processing some ACT strategies to cope with limitations since femur fracture and how this changed certain aspects of her life. She consents to increasing Wellbutrin and mirtazapine to target ongoing depression and insomnia. MNPR due to dexcom device with frequent alarm which is disruptive to others Overall, I spent a total of 30 minutes on this case including meeting with the patient, reviewing the chart, nursing report, multidisciplinary team meeting, orders, and documentation. (1) Major depressive disorder, recurrent episode, severe with anxious distress: (2) Insomnia: Plan 03/16/2024: -Increase Wellbutrin XL to 300mg tomorrow -Increase mirtazapine to 30mg HS tonight 03/15/2024: The patient was admitted to the [facility] ([facility] mental health unit) on q15 min checks (behavioral with suicide precautions) for safety. The patient will participate in group, recreational, and milieu therapies and will be offered additional individual and family sessions as clinically appropriate. 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 50mg HS prn -Start mirtazapine 15mg HS Inventory Assets Strengths: supportive relationships, willing to get treatment Needs: safety and stabilization, medication adjustment, additional coping skills, increased outpatient services Suicide Risk Level Suicide Risk Level: Moderate (q15 min suicide checks) (s/p suicide attempt with ongoing depression, denies SI today, feels safe in the hospital) Suicide Risk Level Comments: Risk Factors Assessment Male: No : Yes Do You Have Access To A Gun?: No Health Problems: Yes Mental Health Diagnoses: Yes Substance Use Disorders: No Previous Attempt: Yes Family History of Suicide: Yes Previous Psychiatric Hospitalization: Yes Protective Factors Assessment Stable Relationships: Yes Supportive Family: Yes Good Rapport with Provider: Yes Interval History Identifying Information ALBA DICKENS is a 68-year-old F who currently lives in [place] alone, has a history of Major Depressive Disorder, and was admitted on 03/14/24 16:39 on a 201 voluntary commitment for suicide attempt via Seroquel ingestion following medical admission for stabilization. Chief Complaint "Not good, I didn't sleep well". Review of Systems Sleep Information Total Hours of Sleep: 6.30 Sleep Comments: HS Remeron Meal Information Percent Meal Consumed - Breakfast: 100 Percent Meal Consumed - Lunch: 95 Percent Meal Consumed - Dinner: 100 Subjective Subjective Patient was seen & assessed and interval progress reviewed with treatment team nursing and social work. Slept for 6.5 hours. Has been ruminative at times about her blood sugar especially due to continuous dexcom monitoring. Attending groups, has been described as brusque. Somewhat help rejecting. Unsure if she's interested in a case management referral. Today reports low mood due to poor sleep and ongoing internal indecision about what to do about her living situation. Processed that she feels very lonely and wants to feel more energetic and with less depression so she can get back to doing more things in the community again such as cleaning or volunteering. She would like to increase Wellbutrin to further target depression and mirtazapine to further target insomnia. Having some nausea today, feels this is due to her poor sleep. Reviewed could also be a side effect of higher escitalopram dose, has been improving since breakfast. Physical Exam Psychiatric Orientation: alert and oriented x 3 Apperance: appropriately dressed and appropriately groomed Eye Contact: good eye contact Motor Behavior: no abnormal motor movements Speech: normal rate/rhythm/volume of speech Affect: + depressed affect Mood: + depressed mood Thought Process: goal directed thought process Thought Content: reality based without delusions Suicidal Thoughts: denies suicidal thoughts (but s/p attempt), denies suicidal plan and denies suicidal intent Homicidal Thoughts: denies homicidal thoughts Hallucinations: no auditory hallucinations and no visual hallucinations Cognition: recent memory grossly intact, remote memory grossly intact, attention grossly intact and language grossly intact Estimated Intelligence: consistent with education level Insight: + limited insight Judgment: + limited judgement Vital Signs (Past 24 Hours) Last Vital Signs Temp 36.8 C 03/16/24 06:40 Pulse 65 03/16/24 06:41 Resp 16 03/16/24 06:40 BP 152/77 H 03/16/24 06:41 Pulse Ox 99 03/14/24 17:18 O2 Del Method Room Air 03/14/24 17:18 Results & Data ([facility]) Laboratory Results Laboratory Results - last 24 hr 03/15/24 03/15/24 03/15/24 11:31 17:06 17:41 POC Glucose 294 H 102 H 78 03/15/24 03/15/24 03/16/24 19:43 21:51 06:41 POC Glucose 272 H 199 H 137 H Current Inpatient Medications Current Inpatient Medications: Current Inpatient Medications Acetaminophen (Acetaminophen 325 Mg Tab) 650 mg PO Q4H PRN PRN Reason: Headache or Minor Fever Stop: 04/13/24 13:54 Al Hydrox/Mg Hydrox/Simethicone (Aluminum/Magnesium Susp 30 Ml Udc) 30 ml PO Q4H PRN PRN Reason: GI Upset Stop: 04/13/24 13:54 Aspirin (Aspirin 81 Mg Ectab) 81 mg PO QAM SACHI Stop: 04/14/24 11:29 Last Admin: 03/15/24 12:10 Dose: 81 mg Bismuth Subsalicylate (Bismuth Subsalicylate Liqd 236 Ml) 15 ml PO PRN PRN PRN Reason: Loose Stool Stop: 04/13/24 13:54 Bupropion HCl (Bupropion Xl 150 Mg Tabcr) 150 mg PO QAM SACHI Stop: 04/14/24 11:29 Last Admin: 03/15/24 12:08 Dose: 150 mg Dextrose (Dextrose 50% 50 Ml Syringe) 25 - 50 ml IV UD PRN; Protocol PRN Reason: Hypoglycemia Protocol Stop: 04/13/24 15:14 Docusate Sodium (Docusate Sodium 100 Mg Cap) 100 mg PO BID PRN PRN Reason: Constipation Stop: 04/14/24 11:14 Last Admin: 03/15/24 22:05 Dose: 100 mg Escitalopram Oxalate (Escitalopram Oxalate 10 Mg Tab) 15 mg PO DAILY SACHI Stop: 04/14/24 11:14 Last Admin: 03/15/24 12:06 Dose: 15 mg Glucagon (Glucagon For Inj 1 Mg Vial) 1 mg IM UD PRN; Protocol PRN Reason: Hypoglycemia Protocol Stop: 04/13/24 15:14 Glucose (Glucose 40% Gel 15 Gm Tube) 15 - 30 gm PO UD PRN; Protocol PRN Reason: Hypoglycemia Protocol Stop: 04/13/24 15:14 Glucose (Glucose 10 Tab/Tube) 4 - 8 tab PO UD PRN; Protocol PRN Reason: Hypoglycemia Protocol Stop: 04/13/24 15:14 Hydroxyzine HCl (Hydroxyzine Hcl 25 Mg Tab) 50 mg PO HSZ PRN PRN Reason: Insomnia Stop: 04/13/24 13:54 Hydroxyzine HCl (Hydroxyzine Hcl 25 Mg Tab) 25 mg PO Q4H PRN PRN Reason: Anxiety Stop: 04/13/24 13:54 Insulin Aspart (Insulin Aspart Per Unit Charge) 0 units SC [facility] Stop: 04/13/24 17:14 Last Admin: 03/15/24 19:49 Dose: 5 units Insulin Glargine (Lantus Per Unit Charge) 0 units SC [facility]; Protocol Stop: 04/14/24 21:59 Last Admin: 03/15/24 21:59 Dose: 15 units Lactobacillus Acidophilus (Advanced Probiotic 625 Mg Capsule) 1,250 mg PO QAM [facility] Stop: 04/14/24 11:29 Last Admin: 03/15/24 12:09 Dose: 1,250 mg Levothyroxine Sodium (Levothyroxine Sodium 112 Mcg Tablet) 112 mcg PO DAILYBB [facility] Stop: 04/14/24 11:19 Last Admin: 03/15/24 12:08 Dose: 112 mcg Lisinopril (Lisinopril 20 Mg Tab) 20 mg PO BID [facility] Stop: 04/14/24 11:29 Last Admin: 03/15/24 21:56 Dose: 20 mg Magnesium Hydroxide (Magnesium Hydroxide Susp 30 Ml Udc) 30 ml PO DAILY PRN PRN Reason: Constipation Stop: 04/13/24 13:54 Mirtazapine (Mirtazapine Tab 15 Mg Tab) 15 mg PO HS [facility] Stop: 04/14/24 21:59 Last Admin: 03/15/24 21:56 Dose: 15 mg Miscellaneous (Carbohydrates For Hypoglycemia ) 15 - 30 gm PO UD PRN PRN Reason: Hypoglycemia Treatment Stop: 04/13/24 15:14 Miscellaneous Information (Pharmacy Glycemic Mgmt Consult) 1 each N/A UD PRN; Protocol PRN Reason: Consult Stop: 04/13/24 14:43 Multivitamins (Multivitamin Tab) 1 tab PO DAILY [facility] Stop: 04/14/24 11:29 Last Admin: 03/15/24 12:10 Dose: 1 tab Ofloxacin (Ofloxacin 0.3% 75 Drops/5 Ml Btl) 1 drops OP QID [facility] Stop: 03/22/24 12:59 Last Admin: 03/15/24 21:56 Dose: 1 drops Pravastatin Sodium (Pravastatin Sod 40 Mg Tab) 40 mg PO DAILY [facility] Stop: 04/14/24 11:29 Last Admin: 03/15/24 12:08 Dose: 40 mg Sodium Chloride (Sodium Chloride 0.65% Na Soln 45 Ml ([place])) 1 - 2 sprays NA PRN PRN PRN Reason: Nasal Dryness/Congestion Stop: 04/13/24 13:54 Vitamin D (Cholecalciferol 25 Mcg (1000 Units) Tab) 25 mcg PO QAM [facility] Stop: 04/14/24 11:29 Last Admin: 03/15/24 12:10 Dose: 25 mcg Mental Health & Subst Abuse Tx Psychiatrist Name of Psychiatrist: [facility] Psychiatrist's Date Of Appointment With Psychiatric Provider: 03/22/24Wednesday Time of Appointment with Psychiatrist: 1:30pm Therapist Name of Therapist: [facility] Therapist's Date of Therapist Appointment: 03/24/24Wednesday Time of Therapist Appointment: 11:00AM Osteopathic Physician Name of Osteopathic Physician: [employer] contact Sally Dacosta Phone Number for Osteopathic Physician: [phone] Case Management Appointment Comment: You can call for detailed information about Case Management Services
[2024-03-16] MEDS: ONDANSETRON 4 MG OD TAB PO PRN (09:51)
[2024-03-16] MEDS: MIRTAZAPINE TAB 15 MG TAB PO SCH (21:25)
[2024-03-16] MEDS: INSULIN ASPART PER UNIT CHARGE SC SCH (21:45)
--- NOTE | 2024-03-17 07:51 | Psychiatric Progress Note ---
Date of Service March 17, 2024 Impression / Recommendations Impression ALBA DICKENS is a 68-year-old F who currently lives in [place] alone, has a history of Major Depressive Disorder, and was admitted on 03/14/24 16:39 on a 201 voluntary commitment for suicide attempt via Seroquel ingestion following medical admission for stabilization. Diagnostically consistent with major depressive disorder, recurrent episode with anxious distress. A: Mood improving slightly today after better quality sleep last night. Tolerating higher dose of mirtazapine and Wellbutrin well. Denies any nausea today. Discussed medication options for constipation which she'd like to try. She's reflecting on possible ways to get more involved in her community and to reduce her isolation. Regretful of attempt, glad to be alive. Had support meeting with her daughter. MNPR due to dexcom device with frequent alarm which is disruptive to others and focus on improving sleep. Overall, I spent a total of 32 minutes on this case including meeting with the patient, reviewing the chart, nursing report, multidisciplinary team meeting, orders, and documentation. (1) Major depressive disorder, recurrent episode, severe with anxious distress: (2) Insomnia: Plan 03/17/2024: Continue current medications and tx plan. 03/16/2024: -Increase Wellbutrin XL to 300mg tomorrow -Increase mirtazapine to 30mg HS tonight 03/15/2024: The patient was admitted to the [facility] ([facility] inpatient mental health unit) on q15 min checks (behavioral with suicide precautions) for safety. The patient will participate in group, recreational, and milieu therapies and will be offered additional individual and family sessions as clinically appropriate. 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 50mg HS prn -Start mirtazapine 15mg HS Inventory Assets Strengths: supportive relationships, willing to get treatment Needs: safety and stabilization, medication adjustment, additional coping skills, increased outpatient services Suicide Risk Level Suicide Risk Level: Moderate (q15 min suicide checks) (s/p suicide attempt with ongoing depression, denies SI today, feels safe in the hospital) Suicide Risk Level Comments: Risk Factors Assessment Male: No : Yes Do You Have Access To A Gun?: No Health Problems: Yes Mental Health Diagnoses: Yes Substance Use Disorders: No Previous Attempt: Yes Family History of Suicide: Yes Previous Psychiatric Hospitalization: Yes Protective Factors Assessment Stable Relationships: Yes Supportive Family: Yes Good Rapport with Provider: Yes Interval History Identifying Information ALBA DICKENS is a 68-year-old F who currently lives in [place] alone, has a history of Major Depressive Disorder, and was admitted on 03/14/24 16:39 on a 201 voluntary commitment for suicide attempt via Seroquel ingestion following medical admission for stabilization. Chief Complaint "better than yesterday". Review of Systems Sleep Information Total Hours of Sleep: 6.30 Sleep Comments: HS Remeron Meal Information Percent Meal Consumed - Breakfast: 50 Percent Meal Consumed - Lunch: 75 Percent Meal Consumed - Dinner: 100 Subjective Subjective Patient was seen & assessed and interval progress reviewed with treatment team nursing and social work. Some nausea yesterday. At times declining amount of insulin coverage recommended. Reported mood last night as "tired". Today reports some improvement in her mood which she credits with improved sleep last night. She found that the higher dose of mirtazapine worked well in that she fell asleep easily and after waking up to use the bathroom. Having constipation, she requests additional medication options to help with this. Tolerating higher dose of Wellbutrin today, denies any increase in anxiety, rather feels calmer today. Physical Exam Psychiatric Orientation: alert and oriented x 3 Apperance: appropriately dressed and appropriately groomed Eye Contact: good eye contact Motor Behavior: no abnormal motor movements Speech: normal rate/rhythm/volume of speech Affect: + constricted affect (but brighter at times) Mood: + depressed mood Thought Process: goal directed thought process Thought Content: reality based without delusions Suicidal Thoughts: denies suicidal thoughts (but s/p attempt), denies suicidal plan and denies suicidal intent Homicidal Thoughts: denies homicidal thoughts Hallucinations: no auditory hallucinations and no visual hallucinations Cognition: recent memory grossly intact, remote memory grossly intact, attention grossly intact and language grossly intact Estimated Intelligence: consistent with education level Insight: + fair insight Judgment: + fair judgement Vital Signs (Past 24 Hours) Last Vital Signs Temp 36.9 C 03/17/24 06:37 Pulse 63 03/17/24 06:38 Resp 16 03/17/24 06:37 BP 132/74 03/17/24 06:38 Pulse Ox 99 03/14/24 17:18 O2 Del Method Room Air 03/14/24 17:18 Results & Data ([facility]) Laboratory Results Laboratory Results - last 24 hr 03/16/24 03/16/24 03/16/24 08:49 12:40 17:08 POC Glucose 169 H 161 H 66 L* 03/16/24 03/16/24 03/17/24 17:31 21:33 06:38 POC Glucose 78 313 H* 93 Current Inpatient Medications Current Inpatient Medications: Current Inpatient Medications Acetaminophen (Acetaminophen 325 Mg Tab) 650 mg PO Q4H PRN PRN Reason: Headache or Minor Fever Stop: 04/13/24 13:54 Al Hydrox/Mg Hydrox/Simethicone (Aluminum/Magnesium Susp 30 Ml Udc) 30 ml PO Q4H PRN PRN Reason: GI Upset Stop: 04/13/24 13:54 Aspirin (Aspirin 81 Mg Ectab) 81 mg PO QAM [facility] Stop: 04/14/24 11:29 Last Admin: 03/16/24 08:56 Dose: 81 mg Bismuth Subsalicylate (Bismuth Subsalicylate Liqd 236 Ml) 15 ml PO PRN PRN PRN Reason: Loose Stool Stop: 04/13/24 13:54 Bupropion HCl (Bupropion Xl 300 Mg Tabcr) 300 mg PO QAM [facility] Stop: 04/16/24 08:59 Dextrose (Dextrose 50% 50 Ml Syringe) 25 - 50 ml IV UD PRN; Protocol PRN Reason: Hypoglycemia Protocol Stop: 04/13/24 15:14 Docusate Sodium (Docusate Sodium 100 Mg Cap) 100 mg PO BID PRN PRN Reason: Constipation Stop: 04/14/24 11:14 Last Admin: 03/16/24 13:21 Dose: 100 mg Escitalopram Oxalate (Escitalopram Oxalate 10 Mg Tab) 15 mg PO DAILY [facility] Stop: 04/14/24 11:14 Last Admin: 03/16/24 08:57 Dose: 15 mg Glucagon (Glucagon For Inj 1 Mg Vial) 1 mg IM UD PRN; Protocol PRN Reason: Hypoglycemia Protocol Stop: 04/13/24 15:14 Glucose (Glucose 40% Gel 15 Gm Tube) 15 - 30 gm PO UD PRN; Protocol PRN Reason: Hypoglycemia Protocol Stop: 04/13/24 15:14 Glucose (Glucose 10 Tab/Tube) 4 - 8 tab PO UD PRN; Protocol PRN Reason: Hypoglycemia Protocol Stop: 04/13/24 15:14 Hydroxyzine HCl (Hydroxyzine Hcl 25 Mg Tab) 50 mg PO HSZ PRN PRN Reason: Insomnia Stop: 04/13/24 13:54 Hydroxyzine HCl (Hydroxyzine Hcl 25 Mg Tab) 25 mg PO Q4H PRN PRN Reason: Anxiety Stop: 04/13/24 13:54 Insulin Aspart (Insulin Aspart Per Unit Charge) 0 units SC 1200,1715,2200 [facility] Stop: 04/15/24 21:59 Last Admin: 03/16/24 21:45 Dose: 4 units Insulin Aspart (Insulin Aspart Per Unit Charge) 0 units SC DAILY@0800 [facility] Stop: 04/13/24 17:14 Insulin Glargine (Lantus Per Unit Charge) 0 units SC HS [facility]; Protocol Stop: 04/14/24 21:59 Last Admin: 03/16/24 21:45 Dose: 15 units Lactobacillus Acidophilus (Advanced Probiotic 625 Mg Capsule) 1,250 mg PO QAM [facility] Stop: 04/14/24 11:29 Last Admin: 03/16/24 08:56 Dose: 1,250 mg Levothyroxine Sodium (Levothyroxine Sodium 112 Mcg Tablet) 112 mcg PO DAILYBB [facility] Stop: 04/14/24 11:19 Last Admin: 03/16/24 08:56 Dose: 112 mcg Lisinopril (Lisinopril 20 Mg Tab) 20 mg PO BID [facility] Stop: 04/14/24 11:29 Last Admin: 03/16/24 21:26 Dose: 20 mg Magnesium Hydroxide (Magnesium Hydroxide Susp 30 Ml Udc) 30 ml PO DAILY PRN PRN Reason: Constipation Stop: 04/13/24 13:54 Mirtazapine (Mirtazapine Tab 15 Mg Tab) 30 mg PO HS [facility] Stop: 04/15/24 21:59 Last Admin: 03/16/24 21:25 Dose: 30 mg Miscellaneous (Carbohydrates For Hypoglycemia ) 15 - 30 gm PO UD PRN PRN Reason: Hypoglycemia Treatment Stop: 04/13/24 15:14 Miscellaneous Information (Pharmacy Glycemic Mgmt Consult) 1 each N/A UD PRN; Protocol PRN Reason: Consult Stop: 04/13/24 14:43 Multivitamins (Multivitamin Tab) 1 tab PO DAILY [facility] Stop: 04/14/24 11:29 Last Admin: 03/16/24 08:56 Dose: 1 tab Ofloxacin (Ofloxacin 0.3% 75 Drops/5 Ml Btl) 1 drops OP QID [facility] Stop: 03/22/24 12:59 Last Admin: 03/16/24 21:26 Dose: 1 drops Ondansetron HCl (Ondansetron 4 Mg Od Tab) 4 mg PO BID PRN PRN Reason: Nausea And Vomiting Stop: 04/15/24 09:28 Last Admin: 03/16/24 09:51 Dose: 4 mg Pravastatin Sodium (Pravastatin Sod 40 Mg Tab) 40 mg PO DAILY [facility] Stop: 04/14/24 11:29 Last Admin: 03/16/24 08:56 Dose: 40 mg Sodium Chloride (Sodium Chloride 0.65% Na Soln 45 Ml ([place])) 1 - 2 sprays NA PRN PRN PRN Reason: Nasal Dryness/Congestion Stop: 04/13/24 13:54 Vitamin D (Cholecalciferol 25 Mcg (1000 Units) Tab) 25 mcg PO QAM [facility] Stop: 04/14/24 11:29 Last Admin: 03/16/24 08:57 Dose: 25 mcg Mental Health & Subst Abuse Tx Psychiatrist Name of Psychiatrist: [facility] Psychiatrist's Date Of Appointment With Psychiatric Provider: 03/22/24Wednesday Time of Appointment with Psychiatrist: 1:30pm Psychiatrist Release of Information: Obtained, Reviewed and Signed Therapist Name of Therapist: [facility] Therapist's Date of Therapist Appointment: 03/24/24Wednesday Time of Therapist Appointment: 11:00AM Therapist Release of Information: Obtained, Reviewed and Signed Talent Buyer Name of Talent Buyer: Chad Porter [employer] contact Sally Dacosta Phone Number for Talent Buyer: [phone] Case Management Appointment Comment: You can call for detailed information about Case Management Services
--- NOTE | 2024-03-17 08:29 | Pharmacy Report ---
Pharmacy Glycemic Short Note 2 - Date of Service March 17, 2024 - Glycemic Short BSG Results (Last 24 hours): 03/16/24 03/16/24 03/16/24 08:49 12:40 17:08 POC Glucose 169 H 161 H 66 L* 03/16/24 03/16/24 03/17/24 17:31 21:33 06:38 POC Glucose 78 313 H* 93 OUTPATIENT ANTIDIABETIC REGIMEN: * Basaglar 18 units HS, Novolog SSI ASSESSMENT: 03/17 * Patient received total of 28 units of insulin, of which 15 units were basal. * Fasting BSG 93 mg/dL - decrease Lantus dosing slightly to prevent hypoglycemia. * Patient did have an episode of hypoglycemia yesterday (66mg/dL) prior to dinner - will loosen CR at all times except breakfast. * Higher goal range to also prevent hypoglycemia. 03/15 * Patient received total of 30 units of insulin, of which 18 units were basal * Fasting BSG trending down this AM 83 mg/dL - will plan to scale back slightly to 15 units. Will dose once daily Lantus for easier transition on discharge. 03/14 * 68 year old admitted to [facility]. Pharmacy consulted for glycemic management. Patient is type 2 diabetic. Currently receiving Lantus 9 units BID. Fasting BSG this AM 208 mg/dL - anticipate improvement with ongoing basal dosing. May consider transitioning back to once daily basal insulin tomorrow to reflect home dosing. Will plan to continue same NovoLog dosing for now. PLAN FOR INPATIENT GLYCEMIC CONTROL: * Basal insulin * Lantus 10-12 units SC HS (10 units BSG < 140, 12 units BSG 140 or greater) * Bolus insulin * NovoLog per scale ACHS or Q6hrs while NPO * Goal Range: Low 120 mg/dL - High 160 mg/dL * Correction Factor: 40 mg/dL/unit at breakfast, 45mg/dL/unit all other times * Nutritional / Prandial insulin per carb ratio of 1 unit per 10 grams CHO consumed at breakfast, 1 unit per 15 grams CHO consumed all other times
[2024-03-17] MEDS: buPROPion XL 300 MG TABCR PO SCH (08:55)
[2024-03-17] MEDS: INSULIN ASPART PER UNIT CHARGE SC SCH (09:06)
[2024-03-17] MEDS: DOCUSATE SODIUM/SENNA 50/8.6MG TAB PO SCH (16:40)
[2024-03-17] MEDS: POLYETHYLENE (MIRALAX) 17 GM PACK PO SCH (16:40)
[2024-03-18] MEDS: DOCUSATE SODIUM 100 MG CAP PO SCH (08:46)
[2024-03-18] MEDS: MAGNESIUM HYDROXIDE SUSP 30 ML UDC PO PRN (08:49)
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
[2024-03-18] MEDS: CARBOHYDRATES FOR HYPOGLYCEMIA PO PRN (16:55)
[2024-03-19 06:51] VITALS: BP 121/75; TEMP 97.4; O2SAT 97
--- NOTE | 2024-03-19 09:30 | Discharge Summary ---
Date of Service March 19, 2024 History of Present Illness Lana describes worsening depression and suicide attempt via Seroquel overdose in the context of multiple psychosocial stressors including social isolation, contemplating decision to move into a more structured personal detention environment, and medical challenges since June 2023. She reports she feels "embarrassed" about the attempt. I just had a "bad bad weekend" and "I don't know why I did it". She wishes we could help change her to feel "more normal" and to regain her previous perspective on life. She reports having quit smoking previously but recently started again and knows this isn't good for her health. Feels increased anxiety and restlessness today. Further information per my psychiatry consult on 03/14/2024: "Lana was admitted medically after intentionally taking extra Seroquel (12-15 tablets of 50mg strength) due to a desire to fall asleep and was ambivalent about whether or not she as a result of this. Reportedly was on the phone with someone who noticed her slurring her words and that individual reached out to 911. She admits to taking extra quetiapine, not with the intention to , but because she felt indifferent about living and believed it would be easier for her family. She reports ongoing depression since she broke her femur last June and that she hasn't felt like herself since then. 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 She lives alone and feels that loneliness and isolation are significant factors contributing to her depression. She has considered moving to a alf community but is concerned about the cost. She recognizes that "I need to get out of this house" but also "I don't know what to do about it" as she feels not ready yet to make the big decision to sell her house and move into a more personal care type housing situation. She was admitted to the [facility] in September. She states that her depression had improved slightly with therapy after that but worsened again last week and over the weekend. She denies any specific recent event or family issue that may have triggered the worsening of her depression but rather ongoing isolation, difficulty deciding what to do about her living situation and multiple health issues since breaking her femur in June including sciatica, eye infections, and diverticulitis, which have further disrupted her life and contributed to her depression. She has been experiencing difficulty leaving her house due to anxiety and feels worried about everything. She is unsure if she has experienced panic attacks but describes episodes of her heart beating hard. She endorses depressive symptoms including anhedonia, low motivation, low energy, poor sleep with environmental sciences professor awakenings, low self-worth and feeling like a burden to others. She reports her sleep has improved since starting the quetiapine, but still has environmental sciences professor awakenings. Denies current SI but also somewhat ambivalent about surviving the overdose. Feels like if she had it would have been easier on her family. She is currently prescribed psychiatric medications of bupropion (has been on this since September), escitalopram 10mg daily (was recently started 2 weeks ago), and quetiapine 50mg qhs prn. She was also previously on lamotrigine in December for anxiety. " Psychiatric ROS notable for no current nor history of symptoms of norma, psychosis, PTSD, OCD nor eating disorder. Physical Exam Mental Examination Appearance: Well Groomed Eye Contact: Direct Eye Contact Motor Behavior: Unremarkable Speech: Normal Mood: Calm Affect: Constricted Thought Process: Intact Insight: Fair Judgement: Fair Vital Signs (Past 24 Hours) Last Vital Signs Temp 36.3 C L 03/19/24 06:49 Pulse 66 03/19/24 06:49 Resp 16 03/19/24 06:49 BP 121/75 03/19/24 06:49 Pulse Ox 97 03/19/24 06:49 O2 Del Method Room Air 03/19/24 06:49 Principal Diagnosis Major depressive disorder, recurrent episode, severe with anxious distress Psychiatric Data See daily stay summary. In short, safety was maintained and the patient was cooperative with care. Medication changes included increasing home Escitalopram to 15mg QD, Wellbutrin to 300mg QD, and Mirtazapine to 30mg HS and they tolerated this well. A family session was held and safety plan was completed prior to discharge. Day of Discharge Assessment Today the patient voices readiness for discharge. They note improvement in mood and deny thoughts to harm self or others. Thoughts remain organized and they are improved from admission. There is no evidence of psychosis. They agree to take mediations as prescribed and keep follow-up appointments. They are stable for discharge to outpatient level of care. Transition of Care Transition Of Care Record: was reviewed with the patient Advance Directives Advance Directives Information Provided: Yes Advance Directives: No Mental Health Advance Directive: No Advance Directives on File: No Living Will: No Power of Photographer'S Assistant: No Advance Directives Reason:: Declines as Mental Health Visit. Suicide Risk Level Suicide Risk Level Comments: Risk Factors Assessment Male: No : Yes Do You Have Access To A Gun?: No Health Problems: Yes Mental Health Diagnoses: Yes Substance Use Disorders: No Previous Attempt: Yes Family History of Suicide: Yes Previous Psychiatric Hospitalization: Yes Protective Factors Assessment Stable Relationships: Yes Supportive Family: Yes Good Rapport with Provider: Yes Discharge Data Lab Results 03/14/24 03/14/24 03/15/24 17:58 21:19 08:38 POC Glucose 161 H 181 H 83 03/15/24 03/15/24 03/15/24 11:31 17:06 17:41 POC Glucose 294 H 102 H 78 03/15/24 03/15/24 03/16/24 19:43 21:51 06:41 POC Glucose 272 H 199 H 137 H 03/16/24 03/16/24 03/16/24 08:49 12:40 17:08 POC Glucose 169 H 161 H 66 L* 03/16/24 03/16/24 03/17/24 17:31 21:33 06:38 POC Glucose 78 313 H* 93 03/17/24 03/17/24 03/17/24 08:31 12:31 17:30 POC Glucose 119 H 172 H 104 H 03/17/24 03/18/24 03/18/24 20:21 06:39 12:21 POC Glucose 140 H 187 H 141 H 03/18/24 03/18/24 03/18/24 16:51 17:19 21:18 POC Glucose 67 L* 96 169 H 03/19/24 06:47 POC Glucose 197 H Hospital Course (1) Major depressive disorder, recurrent episode, severe with anxious distress: (2) Insomnia: Plan 03/18/2024: Colace 100 mg twice daily scheduled. Continue medications and treatment plan. 03/17/2024: Continue current medications and tx plan. 03/16/2024: -Increase Wellbutrin XL to 300mg tomorrow -Increase mirtazapine to 30mg HS tonight 03/15/2024: The patient was admitted to the [facility] ([facility] inpatient mental health unit) on q15 min checks (behavioral with suicide precautions) for safety. The patient will participate in group, recreational, and milieu therapies and will be offered additional individual and family sessions as clinically appropriate. -Increase escitalopram to 15mg qd -Continue Wellbutrin XL 150mg qd -Discontinue MICROFILM OPERATOR Seroquel 50mg HS prn -Start mirtazapine 15mg HS Mental Health & Subst Abuse Tx Psychiatrist Name of Psychiatrist: [facility] Psychiatrist's Date Of Appointment With Psychiatric Provider: 03/22/24Wednesday Time of Appointment with Psychiatrist: 1:30pm Psychiatrist Release of Information: Obtained, Reviewed and Signed Therapist Name of Therapist: [facility] Therapist's Date of Therapist Appointment: 03/24/24Wednesday Time of Therapist Appointment: 11:00AM Therapist Release of Information: Obtained, Reviewed and Signed Professor Of Visual Arts Name of Professor Of Visual Arts: Chad Porter DEVINNic contact Sally Dacosta Phone Number for Professor Of Visual Arts: [phone] Case Management Appointment Comment: You can call for detailed information about Case Management Services Discharge Plan Discharge Items Patient Disposition: Home - Self-Care Reason For Visit: MAJOR DEPRESSIVE DISORDER Discharge Diagnosis: Major depressive disorder, recurrent episode, severe with anxious distress Activity: Resume your previous activity Non-emergency contact: Primary Care Provider and Psychiatrist Call non-emergency contact if: you have any medication questions and your symptoms worsen Follow-up/Referrals: Heather Heath PA-C [Primary Care Provider] - Diet: Regular Addtl Attending Provider Instructions: -Continue Lexapro 15mg daily -Continue Wellbutrin 300mg daily -Continue Mirtazapine 15mg at bedtime -F/u with outpatient psychiatrist. -Engage in outpatient therapy Pending Studies at Discharge: No Stand-Alone Forms: My [employer], Smoking Cessation Medications and DC Order Prescriptions: New ofloxacin [Ocuflox] 0.3 % Drops 1 drp ophthalmic (eye) QID 2 Days Qty: 8 0RF bupropion HCl 300 mg Tablet Extended Release 24 Hr 300 mg PO QAM Qty: 30 1RF escitalopram oxalate 10 mg Tablet 15 mg PO DAILY Qty: 45 1RF hydroxyzine HCl 50 mg tablet 50 mg PO HSZ PRN (Reason: anxiety, insomnia) Qty: 30 0RF mirtazapine 30 mg tablet 30 mg PO HS Qty: 30 1RF Continued cholecalciferol (vitamin D3) 25 mcg (1,000 unit) capsule 25 mcg PO QAM Adult 50 Plus Probiotic 4 billion cell capsule 4,000 mmu cells PO QAM levothyroxine [Euthyrox] 112 mcg tablet 112 mcg PO DAILYBB aspirin 81 mg Tablet,Delayed Release (Dr/Ec) 81 mg PO QAM multivitamin with folic acid [Daily-Arleen (with folic acid)] 400 mcg Tablet 1 tab PO DAILY Qty: 1 0RF lisinopril 20 mg tablet 20 mg PO BID insulin glargine [Basaglar KwikPen U-100 Insulin] 100 unit/mL (3 mL) insulin pen 18 unit SUBCUT HS Rx Instructions: if having consecutive lows, decrease to 15 u until contact primary care office insulin aspart U-100 [Novolog FlexPen U-100 Insulin] 100 unit/mL (3 mL) Insulin Pen 1 sliding scale dose subcut USEASDIRECTD MDD 25 unit Qty: 15 0RF Rx Instructions: -Goal BSG Range: Low 110_mg/dL, High 140_mg/dL --Correction Factor: 20_mg/dL/unit --Carbohydrate ratio = _12_ g/unit docusate sodium 100 mg capsule 100 mg PO BID PRN (Reason: Constipation) pravastatin 40 mg Tablet 40 mg PO DAILY Discontinued bupropion HCl 150 mg Tablet Extended Release 24 Hr 150 mg PO QAM Qty: 30 0RF Hold Instructions: Resume on 03/21/24. Or until cleared by psychiatry escitalopram oxalate 10 mg tablet 10 mg PO DAILY Hold Instructions: Resume on 03/21/24. Or until cleared by psychiatry quetiapine [Seroquel] 50 mg Tablet 50 mg PO HS PRN (Reason: Sleep) Hold Instructions: Resume on 03/21/24. Or until cleared by psychiatry Discharge Orders: Discharge Order (Routine); Ordered 03/19/24 Ordered By: Osmin Ortiz Admission Data Admit Date/Time: 03/14/24 16:39 Attending Provider: Joann Sy Admit Provider: Joann Sy Primary Care Provider: Heather Heath C[place] [address] D/C day mgmt > 30 min Patient Type Established History Detailed Exam Detailed Medical Decision Making Moderate Complexity Diagnoses Major depressive disorder, recurrent episode, severe with anxious distress F33.2 Insomnia G47.00
[2024-03-19 09:32] VITALS: PULSE 78
== END 2024-03-19 10:35 | disposition home or self-care (01) | DRG 885 ==
LOC: 3S 16:39

== ENCOUNTER 2024-07-29 10:42 | Inpatient (IN) ==
--- OUTSIDE RECORDS SUMMARY | 2024-07-29 10:45 | External Medical Summary | Continuity of Care Document ---
Author Name Unknown Organization [address] [place] [phone] Care Team Providers Care Dramatic Arts Historian Name Role Phone Heather Heath Primary Care Physician [phone] [id number] Date(s): 07/10/[facility] - 07/10/24 [facility] [address] [id number] [phone] Encounter Diagnosis Body mass index [BMI] 23.0-23.9, adult(Discharge Diagnosis) - 07/10/24 Hypercalcemia(Discharge Diagnosis) - 07/10/24 Anxiety and depression(Discharge Diagnosis) - 07/10/24 Hypertension(Discharge Diagnosis) - 07/10/24 Poorly controlled type 2 diabetes mellitus(Discharge Diagnosis) - 07/10/24 Hypothyroidism(Discharge Diagnosis) - 07/10/24 Hypercalcemia(Final) - Hypothyroidism, unspecified(Final) - Type 2 diabetes mellitus with hyperglycemia(Final) - Discharge Disposition: Home or Self Care Attending Physician: FARIBA Heath Kimberly A Allergies, Adverse Reactions, Alerts Substance Criticality Severity Reaction Reaction Severity Status Jardiance Unable to assess criticality Moderate Vaginitis Active Immunizations Given and Recorded Vaccine Date Status Refusal Reason pneumococcal 20-valent conjugate vaccine 07/10/24 Given SARS-CoV-2 (COVID-19) mRNA-vacc - [id number] 05/23/24 Recorded influenza virus vaccine, inactivated 05/10/24 Give n zoster vaccine, inactivated 1 04/08/22 Recorded zoster [...] AT BEDTIME Start Date: 01/24/24 Status: Ordered BD PEN NEEDLE/IRVING [id number] MIS Start: 06/09/24 11:09:00 AM EST, BD PEN NEEDLE/IRVING [id number] MIS, See Instructions, Disp# 100 each, Refills: 2, USE DIRECTED . DO NOT EXCEED 2 PER DAY. USE NEW PEN NEEDLE WITH EACH INJECTION, Pharmacy [id number] Start Date: 06/09/24 Status: Ordered Bentyl 20 mg oral tablet Start: 07/05/24 7:30:00 PM EST, 1 tab, PO, qid, Disp# 120 tab, Refills: 1, Pharmacy: [id number] Start Date: 07/05/24 Stop Date: 09/03/24 Status: Ordered Dexcom G7 Rn Dermatology Start: 01/17/24 3:40:00 PM EDT, See Instructions, Disp# 1 kit, Test three times daily, Note to Pharmacy: E11.65, Pharmacy: [id number] Start Date: 01/17/24 Status: Ordered FLUoxetine 20 mg oral capsule TAKE 1 CAPSULE BY MOUTH ONCE DAILY DIRECTED Start Date: 07/12/24 Status: Ordered hydrOXYzine hydrochloride 10 mg oral tablet TAKE 1 TABLET BY MOUTH TWICE DAILY NEEDED FOR ANXIETY Start Date: 07/10/24 Status: Ordered levothyroxine 112 mcg (0.112 mg) oral tablet Start: 05/23/24 9:12:00 AM EDT, 112, PO, Daily, Disp# 90 tab, Refills: 3, Pharmacy: [id number] Start Date: 05/23/24 Stop Date: 05/18/25 Status: Ordered lisinopril 20 mg oral tablet Start: 10/15/23 1:16:00 AM EDT, 20 mg =, PO, bid, Disp# 60 tab, Refills: 1, Pharmacy: [id number] Start Date: 10/15/23 Stop Date: 12/14/23 Status: Ordered multivitamin Start: 07/27/23 11:23:00 AM EST, 1 tab, PO, Daily Start Date: 07/27/23 Status: Ordered pantoprazole 40 mg oral delayed release tablet TAKE 1 TABLET BY MOUTH ONCE DAILY Start Date: 07/10/24 Status: Ordered pravastatin 40 mg oral tablet Start: 02/15/24 11:06:00 AM EDT, 1 tab, PO, Daily Start Date: 02/15/24 Status: Ordered Probiotic Formula Start: 01/17/24 3:09:00 PM EDT Start Date: 01/17/24 Status: Ordered Relion NovoLOG Flexpen 100 units/mL injectable solution Start: 07/10/24 7:33:00 AM EST, See Instructions, Disp# 15 mL, Refills: 0, USE SLIDING SCALE DOSAGE BASED ON BLOOD SUGAR GLUCOSE. MAX DAILY DOSE OF 25 UNITS, Pharmacy: [id number] Start Date: 07/10/24 Status: Ordered sucralfate 1 g oral tablet TAKE 1 TABLET BY MOUTH DAILY using PRN Start Date: 07/10/24 Status: Ordered Mental Status 07/10/24 Barriers to Learning one year None evide nt Mandatory Health Literacy Documentation Yes Health Literacy Communication Barriers N ever Primary Language Icelandic Problem List Condition Confirmation Course Effective Dates Status H ealth Status Informant Anemia Confirmed Active History of TIA (transient ischemic attack) Confirmed Active Hypertension Confirmed Active Hypothyroidism Confirmed Active Anxiety and depression Confirmed Active Tobacco user Confirmed Active Type 2 diabetes mellitus Confirmed Active Diagnosis Diagnosis Type Effective Dates Health Status Clinical Service Informant Hypertension Discharge Diagnosis 07/10/24 Non-Specified Body mass index [BMI] 23.0-23.9, adult Discharge Diagnosis 07/10/24 Non-Specified Anxiety and depression Discharge Diagnosis 07/10/24 Non-Specified Hypercalcemia Discharge Diagnosis 07/10/24 Non-Specified Poorly controlled type 2 diabetes mellitus Discharge Diagnosis 07/10/24 Non-Specified Hypothyroidism Discharge Diagnosis 07/10/24 Non-Specified Procedures Procedure Date Related Diagnosis Body Site Status DEXA - dual energy X-ray abs orptiometry 1 05/01/24 Completed 1AP Spine- Date: 05/01/2024 T-Score: -1.8 Left Forearm- Date: 05/01/2024 T-Score: -1.2 Results Laboratory List Name Date Basic Metabolic Panel (BASIC METAB PANEL ) 07/10/24 Calcium, Ionized (CALCIUM, IONIZED) 07/10 Hepatic Function Panel (HEPATIC FUNCT PA JIMMY) 07/10/24 Parathyroid Hormone, Intact (PTH, INTACT ) 07/10/24 T4, Free (T4, FREE) 07/10/24 Thyroid Stimulating Hormone (TSH) 4 Most recent to oldest [Reference Range]: 1 eGFR CKD-EPI [>60 mL/min/1.73 m2] 76 mL/ min/1.73 m2 (07/10/24 3:03 PM) Estimated CrCl 56.89 mL/min (07/10/24 11:25 PM) Anion Gap [5-14 mmol/L] 13 mmol/L (07/10/24 3:03 PM) Alb [3.5-5.2 g/dL] 4.5 g/dL (07/10/24 3:03 PM) Alk Phos [35-115 unit/L] 83 unit/L 1 (07/10/24 3:03 PM) ALT [0-33 unit/L] 12 unit/L (07/10/24 3:03 PM) AST [0-32 unit/L] 18 unit/L 2 (07/10/24 3:03 PM) BUN [6-23 mg/dL] 11 mg/dL (07/10/24 3:03 PM) Ca [8.4-10.2 mg/dL] 10.4 mg/dL *HI* (07/10/24 3:03 PM) Ion Ca [1.15-1.27 mmol/L] 1.25 mmol/L (07/10/24 3:03 PM) Cl- [98-107 mmol/L] 103 mmol/L (07/10/24 3:03 PM) HCO3 [22-29 mmol/L] 25 mmol/L (07/10/24 3:03 PM) Cret [0.60-1.00 mg/dL] 0.83 mg/dL (07/10/24 3:03 PM) D Bili [0.0-0.3 mg/dL] <0.2 mg/dL 3 (07/10/24 3:03 PM) Glu [74-109 mg/dL] 73 mg/dL 4 *LOW* (07/10/24 3:03 PM) PTH Intact [15.0-65.0 pg/mL] 22.0 pg/mL (07/10/24 3:03 PM) K [3.5-5.1 mmol/L] 4.6 mmol/L 5 (07/10/24 3:03 PM) Na [136-145 mmol/L] 141 mmol/L (07/10/24 3:03 PM) Free T4 [0.9-1.7 ng/dL] 1.67 ng/dL (07/10/24 3:03 PM) T Bili [0.0-1.2 mg/dL] 0.3 mg/dL (07/10/24 3:03 PM) Prot [6.4-8.3 g/dL] 7.3 g/dL (07/10/24 3:03 PM) TSH [0.30-4.20 uIU/mL] 0.55 uIU/mL (07/10/24 3:03 PM) 1Result Comment: Low levels of ALKP may indicate a deficiency in zinc, magnesium, or malnutritionbutcan also be an indicator of a rare genetic disease hypophosphatasia (HPP). 2Result Comment: HEMOLYZED SPECIMEN 3Result Comment: HEMOLYZED SPECIMEN 4Result Comment: ADA recommendation for FASTING Serum/Plasma Glucose: Normal: 70-100 mg/dL Prediabetes: 100-125 mg/dL Diabetes: 126 mg/dL or higher 5Result Comment: HEMOLYZED SPECIMEN Vital Signs Most recent to oldest [Reference Range]: 1 Height 163.5 cm (07/10/24 1:18 PM) Patient Weight 63.1 kg (07/10/24 1:18 PM) Body Mass Index 23.6 kg/m2 (07/10/24 1:18 PM) Temperature [36.5-37.9 DegC] 36.7 DegC (07/10/24 1:18 PM) Heart Rate 68 bpm (07/10/24 1:18 PM) Respiratory Rate 18 br/min (07/10/24 1:18 PM) Blood Pressure 120/64mmHg (07/10/24 1:18 PM) Cuff Pulse Pressure 56 mmHg (07/10/24 1:18 PM) Social History Social History Type Response Smoking Status Current some day lig ht smoker Sex Female Sex Representation Female (finding) Patient Care team information Care Team Personnel Name: FARIBA Heath, Heather Guaman Position: Physician Asst Exmpt - Family Med Member Role: Primary Care Provider Address: [address] [place] [address] Name: DO Stroud Sameer Position: Resident Member Role: Lifetime Relationship Address: [address] [place] [address] Care Team Related Persons Name: RIC DICKENS
--- OUTSIDE RECORDS SUMMARY | 2024-07-29 10:45 | External Medical Summary | Continuity of Care Document ---
Author Name Unknown Organization [address] [place] [phone] Care Team Providers Care Miller Supervisor Name Role Phone Heather Heath Primary Care Physician [phone] [id number]): 07/10/[facility] - 07/10/24 [facility] 0 [facility] 207 [facility] [address] [address] [phone] Encounter Diagnosis Body mass index [BMI] 23.0-23.9, [...] vaccine 07/10/24 Given SARS-CoV-2 (COVID-19) mRNA-vacc - [id number] 05/23/24 Recorded influenza virus vaccine, inactivated 05/10/24 [...] Date: 01/24/24 Status: Ordered BD PEN NEEDLE/IRVING [id number] MIS Start: 06/09/24 11:09:00 AM EST, BD PEN NEEDLE/IRVING [id number] MIS, See Instructions, Disp# 100 each, Refills: 2, USE DIRECTED . DO NOT EXCEED 2 PER DAY. USE NEW PEN NEEDLE WITH EACH INJECTION, Pharmacy [id number] Start Date: 06/09/24 Status: Ordered Bentyl 20 mg oral tablet Start: 07/05/24 7:30:00 PM EST, 1 tab, PO, qid, Disp# 120 tab, Refills: 1, Pharmacy: [id number] Start Date: 07/05/24 Stop Date: 09/03/24 Status: Ordered Dexcom G7 [employer] Supervisor Start: 01/17/24 3:40:00 PM EDT, See Instructions, Disp# 1 kit, Test three times daily, Note to Pharmacy: E11.65, Pharmacy: [id number] Start Date: 01/17/24 Status: [...] Daily, Disp# 90 tab, Refills: 3, Pharmacy: [id number] Start Date: 05/23/24 Stop Date: 05/18/25 Status: Ordered lisinopril 20 mg oral tablet Start: 10/15/23 1:16:00 AM EDT, 20 mg =, PO, bid, Disp# 60 tab, Refills: 1, Pharmacy: [id number] Start Date: 10/15/23 Stop [...] MAX DAILY DOSE OF 25 UNITS, Pharmacy: [facility] [id number] Start Date: 07/10/24 Status: Ordered sucralfate 1 g oral tablet TAKE 1 TABLET BY MOUTH DAILY using PRN Start Date: 07/10/24 Status: Ordered Mental Status 07/10/24 Barriers to Learning one year None evide nt Mandatory Health Literacy Documentation Yes Health Literacy Communication Barriers N ever Primary Language Vietnamese Problem List Condition Confirmation Course Effective Dates [...] Med Member Role: Primary Care Provider Address: [address] [place] [address] Name: DO Stroud Sameer Position: Resident Member Role: Lifetime Relationship Address: [address] [place] [address] Care Team Related Persons Name: RIC DICKENS
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
--- NOTE | 2024-07-29 11:14 | Emergency Department Note ---
Impression & Plan Abdominal pain ED Provider Note NAME: ALBA DICKENS AGE: 69 SEX: F : 1955 ARRIVES VIA: Walk-In INFORMANT: Patient, ED PROVIDER(S): Bogdan Ellis DO CHIEF COMPLAINT: Abdominal pain HPI: The patient is a 69-year-old female who presented to the emergency department for an evaluation of abdominal pain. She states that she has had lower abdominal pain that started in the spring 2023. She has had multiple workups including referral to gastroenterology. She has had a colonoscopy. She has had multiple scans and ultrasounds. She states she was started on medication for muscle spasms but it is not helped her pain. The patient denies having any hematemesis or GI bleeding. She states the pain is intermittent and lower in her abdomen. She denies having any chest pain or difficulty breathing. ROS: See above HPI for pertinent positives & negatives. A total of 10 systems reviewed and were otherwise negative. PAST MEDICAL HISTORY: See Below PAST SURGICAL HISTORY: See Below FAMILY HISTORY: See Below SOCIAL HISTORY: See Below HOME MEDICATIONS: See Below ALLERGIES: See Below VITALS: See Below PHYSICAL EXAMINATION: GENERAL: Patient is awake alert in no acute distress patient is resting comfortably and showing no signs of anxiety EYES: The conjunctivae are clear. The pupils are round and reactive. EARS, NOSE, MOUTH AND THROAT: The nose is without any evidence of any deformity. NECK: The neck is nontender and supple. RESPIRATORY: Normal respiratory effort is noted there is no evidence of wheezing rhonchi or rales CARDIOVASCULAR: Regular rate and rhythm noted there no murmurs rubs or gallops normal S1 normal S2. GASTROINTESTINAL: The abdomen is soft and nondistended. There is diffuse tenderness to palpation but no specific guarding or rigidity. MUSCULOSKELETAL/EXTREMITIES: There is no evidence of gross deformity full range of motion is noted in the hips and shoulders. SKIN: There is no obvious evidence of any rash. There are no petechiae, pallor or cyanosis noted. NEUROLOGIC: Patient is awake alert and oriented x3 strength is symmetric patellar reflexes are 2+ bilaterally MEDICAL DECISION MAKING: The patient is a 69-year-old female who presented to the emergency department for an evaluation of abdominal pain. The patient's been suffering with abdominal pain intermittently over the course the last several months. She has had multiple workups with gastroenterology as well as her family doctor. The patient presented today because of ongoing symptoms. I discussed the patient's laboratory and radiographic studies with her. She was treated with IV fluids and IV pain medication in the emergency department. Ultimately the patient was not found to have any acute intra-abdominal pathology. I did recommend outpatient follow-up with the patient states she is not able to follow-up she states that she is in too much pain. For this reason I will discuss her condition with the on-call [facility] hospitalist. Triage Nursing notes reviewed. Prior medical records reviewed Vital Signs: reviewed and remarkable for no significant abnormalities Differential diagnosis: Etiologies such as appendicitis, diverticulitis, obstruction, inflammatory bowel disease, renal colic, PUD, biliary pathology, pancreatitis, mesenteric ischemia, aortic pathology, infections, genitourinary, UTI, perforated viscus, as well as others were entertained. ER treatment provided: See below Diagnostics interpreted by me: ECG: EKG was obtained in the emergency department. My interpretation is normal sinus rhythm at [address] segment abnormalities were noted in the lateral leads. This was compared to a tracing from March 14, 2024. No changes were noted. Cardiac Monitoring: An order was placed for continuous cardiac monitoring. The monitor shows a rate of 62 bpm with sinus rhythm. Laboratory studies: As stated above and show below. Imaging studies: See below. Radiographic imaging was reviewed by myself Consultation(s): Dr. Pruitt was on for the [facility] hospitalist group. She was notified about the patient. Past Med/Surg History Problem List (Updated 07/29/24 @ 14:41 by Bogdan Ellis DO) Abdominal pain (Acute) Insomnia Major depressive disorder, recurrent episode, severe with anxious distress Depression (Acute) Slurred speech (Acute) History of diverticulitis GERD (gastroesophageal reflux disease) Iron deficiency Acute hyponatremia (Acute) Nausea and vomiting Chronic hyponatremia Insulin-requiring or dependent type II diabetes mellitus Fall (Acute) Head injury (Acute) Laceration of scalp (Acute) Closed intertrochanteric fracture of left hip (Acute) Epigastric pain Tobacco use (Acute) Acute hyponatremia (Acute) Abdominal pain (Acute) Vertigo Dyslipidemia Dizziness Rotary nystagmus (Acute) Ataxia (Acute) Hypothyroidism (Chronic) Major depressive disorder, recurrent severe without psychotic features Tobacco use disorder Diarrhea Suicidal ideation (Acute) Hyperglycemia due to type 1 diabetes mellitus (Acute) Abdominal pain (Acute) HTN (hypertension) (Chronic) Medical History Suicidal ideation Overdose History of stroke History of suicidal ideation (2014) Hx of fracture of left hip (06/2023) surgery Hx of fall (06/2023) fx femure, head injury, scalp lac Chronic hyponatremia Nausea and vomiting Iron deficiency 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, "I don't walk like i did before" History of colon polyps Epigastric pain Hx of bronchitis (2017) tx with inhaler at the time, no issues since Hyperlipemia Hypertension Hypothyroidism History of stroke (2021) "minor" no deficits, no neurologist, treated at [facility] and [facility] Hx of major depression Hx of diverticulitis of colon Diverticulosis Diabetes mellitus IDDM Surgical History Hx of tonsillectomy Hx of esophagogastroduodenoscopy Hx of colonoscopy with polypectomy History of (1991) History of right hip replacement (2020) History of open reduction and internal fixation (ORIF) procedure (11/2020) right wrist History of open reduction and internal fixation (ORIF) procedure (06/2023) Left femur, due to fall Family History Brother Hypertension Social History Smoking Status: Current every day smoker Tobacco Type: Cigarettes Cigarettes Per Day: 10; Second Hand Exposure: No; Do You Dip or Chew Tobacco: No; Hx Alcohol Use: No Hx Substance Use: No Preferred Language: Lebanese Communication Ability: Effective Leak Inspector Required: No Beliefs That Will Affect Care: None marital status: / Current Living Situation: Alone Current Living Situation Comment: living with daughter since hip fracture current occupational status: retired Feels Safe at Home: Yes Gender Identity: Female Assistive Devices: Glasses and Walker Allergies Allergies Allergy/AdvReac Type Severity Reaction Status Date / Time No Known Allergies Allergy Verified 01/06/24 08:53 Home Meds Home Medications Medication Instructions Recorded Confirmed levothyroxine 112 mcg tablet 112 mcg PO DAILYBB 11/22/21 03/14/24 (Euthyrox) aspirin 81 mg tablet,delayed 81 mg PO QAM 06/18/23 03/14/24 release docusate sodium 100 mg capsule 100 mg PO BID PRN Constipation 09/22/23 03/14/24 cholecalciferol (vitamin D3) 25 25 mcg PO QAM 11/23/23 03/14/24 mcg (1,000 unit) capsule lactobacillus combination no.9 4 4,000 mmu cells PO QAM 11/23/23 03/14/24 billion cell capsule (Adult 50 Plus Probiotic) insulin glargine 100 unit/mL (3 18 unit subcut HS 03/13/24 03/14/24 mL) subcutaneous pen (Basaglar KwikPen U-100 Insulin) lisinopril 20 mg tablet 20 mg PO BID 03/13/24 03/14/24 pravastatin 40 mg tablet 40 mg PO DAILY 03/14/24 03/14/24 Previous Rx's Medication Instructions Recorded insulin aspart U-100 100 unit/mL 1 sliding scale dose subcut 09/04/23 (3 mL) subcutaneous pen (Novolog USEASDIRECTD #15 mL FlexPen U-100 Insulin aspart) multivitamin with folic acid 400 1 tab PO DAILY #1 tab 09/11/23 mcg tablet (Daily-Arleen (with folic acid)) bupropion HCl 300 mg 24 hr tablet, 300 mg PO QAM #30 tabs 03/19/24 extended release escitalopram oxalate 10 mg tablet 15 mg (1.5 x 10 mg) PO DAILY #45 03/19/24 tabs hydroxyzine HCl 50 mg tablet 50 mg PO HSZ PRN anxiety, insomnia 03/19/24 #30 tabs mirtazapine 30 mg tablet 30 mg PO HS #30 tabs 03/19/24 oxycodone 5 mg tablet 5 mg PO Q8H PRN pain #15 tabs 07/29/24 Results & Data (ED) Vital Signs Vital Signs - 24 hr 07/29/24 10:53 07/29/24 12:00 07/29/24 12:04 Temperature 36.5 C Temperature Source Temporal Artery Scan Pulse Rate 80 78 68 Pulse Rate [Apical] Pulse Rate from SpO2 Sensor 77 Respiratory Rate 22 14 Respiratory Effort / Characteristics Non-Labored Spontaneous Respiratory Depth Normal Respiratory Pattern Regular Blood Pressure 147/72 H 160/93 H Blood Pressure [Right Arm] Blood Pressure Mean 97 115 Blood Pressure Mean [Right Arm] Blood Pressure Position Lying Pulse Oximetry 94 96 Oxygen Delivery Method Room Air Sepsis Recent Fever Within 48 Hours No Sepsis New/Unexplained Change in Mental Status No Sepsis Action Taken by Nursing No Action Required 07/29/24 12:09 07/29/24 12:14 07/29/24 13:30 Temperature Temperature Source Pulse Rate 69 62 Pulse Rate [Apical] 69 Pulse Rate from SpO2 Sensor 62 Respiratory Rate 15 14 16 Respiratory Effort / Characteristics Respiratory Depth Respiratory Pattern Blood Pressure 163/77 H Blood Pressure [Right Arm] 160/93 H Blood Pressure Mean 105 Blood Pressure Mean [Right Arm] 115 Blood Pressure Position Pulse Oximetry 92 92 95 Oxygen Delivery Method Room Air Sepsis Recent Fever Within 48 Hours Sepsis New/Unexplained Change in Mental Status Sepsis Action Taken by Longterm Medications Current Medication List: was personally reviewed by me Laboratory Data Attestation: I reviewed the patient's lab results. 07/29/24 11:27 07/29/24 11:27 Lab Results 07/29/24 07/29/24 Range/Units 11:27 13:20 WBC 9.89 (4.8-10.8) K/ul RBC 4.56 (4.20-5.40) M/uL Hgb 14.2 (12.0-16.0) g/dl Hct 41.7 (37.0-47.0) % MCV 91.4 (80.0-100.0) fL MCH 31.1 (25.0-34.0) pg MCHC 34.1 (32.0-36.0) g/dL RDW Std Deviation 45.1 (36.4-46.3) fL RDW Coeff of Cindy 13.3 (11.5-14.5) % Plt Count 285 (130-400) K/uL MPV 10.4 (9.4-12.4) fL Immature Gran % (Auto) 0.3 % Neut % (Auto) 82.0 % Lymph % (Auto) 14.0 % [facility] % (Auto) 3.4 % Eos % (Auto) 0.1 % Baso % (Auto) 0.2 % Neut # (Auto) 8.11 H (1.40-6.50) K/uL Lymph # (Auto) 1.38 (1.20-3.40) K/uL [facility] # (Auto) 0.34 (0.11-0.59) K/uL Eos # (Auto) 0.01 (0.00-0.50) K/uL Baso # (Auto) 0.02 (0.00-0.20) K/uL Immature Gran # (Auto) 0.03 (0.01-0.20) K/uL Sodium 135 L (136-145) mmol/L Potassium 4.8 (3.5-5.1) mmol/L Chloride 101 (98-107) mmol/L Carbon Dioxide 27 (21-32) mmol/L Anion Gap 7 (3-11) BUN 8 (6-23) mg/dl Creatinine 0.84 (0.6-1.2) mg/dl Est Cr Clr Drug Dosing 56.9 ml/min eGFR 75.18 BUN/Creatinine Ratio 9.5 L (10-20) Glucose 304 H* (70-99(Fasting)) mg/dl Lactate 1.1 (0.4-2.0) mmol/L Calcium 9.6 (8.6-10.3) mg/dl Total Bilirubin 0.4 (0.2-1.0) mg/dl AST 13 (13-39) U/L ALT 12 (7-52) U/L Alkaline Phosphatase 72 (34-104) U/L Troponin I High Sens 3.7 (0-14) pg/ml Total Protein 6.8 (6.0-8.3) gm/dl Albumin 4.0 (3.4-5.0) gm/dl Globulin 2.8 (2.5-4.0) gm/dl Albumin/Globulin Ratio 1.4 (0.9-2) Lipase 5 L (11-82) U/L Urine Color Yellow Urine Appearance Clear (Clear) Urine pH 6.5 (4.5-7.5) Ur Specific [place] > 1.045 H (1.000-1.030) Urine Protein Negative (Negative) Urine Glucose (UA) 2+ H (Negative) Urine Ketones 2+ H (Negative) Urine Blood Negative (Negative) Urine Nitrite Negative (Negative) Urine Bilirubin Negative (Negative) Urine Urobilinogen Negative (Negative) Ur Leukocyte Esterase 1+ H (Negative) Urine WBC (Auto) 6-10 H (0-5) /hpf Urine RBC (Auto) 0-2 (0-2) /hpf U Hyaline Cast (Auto) 0-2 (0-2) /lpf U Epithel Cells (Auto) 6-10 H (0-2) /hpf Urine Bacteria (Auto) 1+ H (None Seen) Administered Medications Morphine Sulfate (Morphine Sulfate 4 Mg/Ml 1 Ml Carp\\Vial) 4 mg IV Q15M PRN PRN Reason: Pain Stop: 08/12/24 11:03 Last Admin: 07/29/24 11:56 Dose: 4 mg Documented By: ASHANTI Discontinued Medications Ioversol (Optiray 320 125ml) 112 ml IV ONCE ONE Stop: 07/29/24 13:04 Last Admin: 07/29/24 13:04 Dose: 112 ml Documented By: RADHA Ondansetron HCl (Ondansetron Inj 2 Mg/Ml 2 Ml Vial) 4 mg IV NOW STA Stop: 07/29/24 11:05 Last Admin: 07/29/24 11:56 Dose: 4 mg Documented By: ASHANTI Imaging Data My Impression: CT of the abdomen and pelvis was obtained in the emergency department. My interpretation is no free air or definite bowel obstruction, final report below. 1 view chest x-ray was obtained in the emergency department. My interpretation is no free air or definite infiltrate, final report below. Radiologist's Impression: Abdomen/Pelvis CTA 07/29/24 11:04 CT angio abdomen pelvis w con CLINICAL HISTORY: pain TECHNIQUE: Multidetector row helical CT of the abdomen and pelvis was performed, following intravenous administration of iodinated contrast. No oral contrast was administered. Automated dose lowering techniques and/or adjustment according to patient size were utilized for this exam. Coronal and sagittal reformations were obtained. MIP and 3D volume rendered reconstructions were obtained. CT DOSE: 603.89 mGy.cm Comparison: None available at the time of this dictation. FINDINGS: Lower chest: No acute abnormality Liver: Unremarkable. No focal lesions are seen. Gallbladder and biliary tree: No calcified gallstones. Normal caliber wall. No intra- or extrahepatic biliary ductal dilation. Pancreas: Unremarkable, no focal lesions. Spleen: Unremarkable. Adrenals: Unremarkable. Kidneys and ureters: Unremarkable. Bladder: Unremarkable. Reproductive organs: Unremarkable. Bowel: Diverticulosis is seen without evidence of diverticulitis. A small hiatal hernia is seen Lymph nodes Retroperitoneal: Unremarkable. Pelvic: Unremarkable. Mesenteric: Unremarkable. Peritoneum: Normal. Abdominal wall: Unremarkable. Bones: Right hip arthroplasty and left femoral nail is seen. CT angiogram: The abdominal aortic contours appear intact without evidence of aneurysmal dilatation and/or dissection. No significant atherosclerosis is seen. The origins of the celiac axis, superior mesenteric, inferior mesenteric and bilateral renal arteries are patent. Incidentally noted, there are 2 left renal arteries. IMPRESSION: Diverticulosis without diverticulitis. Additional findings as above. ACT 112: Negative or not required by law. Electronically signed by: Alonso Pollard M.D. 07/29/2024 2:24 PM Chest X-Ray 07/29/24 11:05 XR chest 1V portable CLINICAL HISTORY: abd pain TECHNIQUE: Single frontal radiograph of the chest was obtained. Comparison: Comparison is made to chest radiograph 09/22/2023 FINDINGS: No lines and tubes are seen. The cardiomediastinal silhouette is normal. The lungs are clear. No evidence of pleural effusion or pneumothorax. IMPRESSION: No acute chest disease. ACT 112: Negative or not required by law. Electronically signed by: Alonso Pollard M.D. 07/29/2024 11:56 AM Discharge Plan Visit Data Chief Complaint: Abdominal Pain Stated Complaint: STOMACH PAIN LAST COUPLE DAYS ED Provider: Bogdan Ellis Discharge Problem: Abdominal pain Patient Disposition: Being Evaluated by Hospitalist Condition: Good Discharge Instructions Krames/Other Patient Handouts: ED Abdominal Pain Adult Activity Restrictions/Additional Instructions: Continue all medications as prescribed. Rest and avoid strenuous activities. Call your Primary Care Physician to schedule a follow up appointment. You may require further testing or possibly referral to a specialist to determine the cause of you symptoms. Return to the Emergency Department if symptoms change, worsen or if the need arises. The testing you may have received in the Emergency Department was explained to the best of our abilities where it pertains to your presentation to the Emergency Department. There may be incidental findings such as nodules and cysts which may require further testing to ensure these findings are reevaluated and no serious underlying condition exists. If you do use a stronger pain medication I would recommend an [id number] stool softener such as MiraLAX or Colace. Forms Stand Alone Forms: My [facility], Important Visit Information Prescriptions Prescriptions: New oxycodone 5 mg tablet 5 mg PO Q8H PRN (Reason: pain) Qty: 15 0RF No Action cholecalciferol (vitamin D3) 25 mcg (1,000 unit) capsule 25 mcg PO QAM Adult 50 Plus Probiotic 4 billion cell capsule 4,000 mmu cells PO QAM levothyroxine [Euthyrox] 112 mcg tablet 112 mcg PO DAILYBB aspirin 81 mg Tablet,Delayed Release (Dr/Ec) 81 mg PO QAM multivitamin with folic acid [Daily-Arleen (with folic acid)] 400 mcg Tablet 1 tab PO DAILY Qty: 1 0RF lisinopril 20 mg tablet 20 mg PO BID insulin glargine [Basaglar KwikPen U-100 Insulin] 100 unit/mL (3 mL) insulin pen 18 unit SUBCUT HS Rx Instructions: if having consecutive lows, decrease to 15 u until contact primary care office insulin aspart U-100 [Novolog FlexPen U-100 Insulin] 100 unit/mL (3 mL) Insulin Pen 1 sliding scale dose subcut USEASDIRECTD MDD 25 unit Qty: 15 0RF Rx Instructions: -Goal BSG Range: Low 110_mg/dL, High 140_mg/dL --Correction Factor: 20_mg/dL/unit --Carbohydrate ratio = _12_ g/unit docusate sodium 100 mg capsule 100 mg PO BID PRN (Reason: Constipation) pravastatin 40 mg Tablet 40 mg PO DAILY bupropion HCl 300 mg Tablet Extended Release 24 Hr 300 mg PO QAM Qty: 30 1RF escitalopram oxalate 10 mg Tablet 15 mg PO DAILY Qty: 45 1RF hydroxyzine HCl 50 mg tablet 50 mg PO HSZ PRN (Reason: anxiety, insomnia) Qty: 30 0RF mirtazapine 30 mg tablet 30 mg PO HS Qty: 30 1RF Referrals Referrals: Heather Heath PA-C [Primary Care Provider] - Discharge Problem: Abdominal pain Qualifiers: Abdominal location: generalized Qualified Code(s): R10.84 - Generalized abdominal pain
[2024-07-29 11:52] LABS: Basophils # (auto) 0.02 K/uL (0.00-0.20); Basophils % (auto) 0.2 %; Eosinophils # (auto) 0.01 K/uL (0.00-0.50); Eosinophils % (auto) 0.1 %; Hematocrit (blood only) 41.7 % (37.0-47.0); Hemoglobin 14.2 g/dl (12.0-16.0); Immature Granulocytes # (auto) 0.03 K/uL (0.01-0.20); Immature Granulocytes % (auto) 0.3 %; Lymphocytes # (auto) 1.38 K/uL (1.20-3.40); Mean Corpuscular Hemoglobin 31.1 pg (25.0-34.0); Mean Corpuscular Hgb Conc 34.1 g/dL (32.0-36.0); Mean Corpuscular Volume 91.4 fL (80.0-100.0); Mean Platelet Volume 10.4 fL (9.4-12.4); Monocytes # (auto) 0.34 K/uL (0.11-0.59); Monocytes % (auto) 3.4 %; Neutrophils # (auto) 8.11 K/uL (1.40-6.50); Platelet Count 285 K/uL (130-400); RDW Coefficient of Variation 13.3 % (11.5-14.5); RDW Standard Deviation 45.1 fL (36.4-46.3); Red Blood Count 4.56 M/uL (4.20-5.40); White Blood Count 9.89 K/ul (4.8-10.8)
[2024-07-29] MEDS: ONDANSETRON INJ 2 MG/ML 2 ML VIAL IV STA (11:56)
[2024-07-29] MEDS: MoRPHine SULFATE 4 MG/ML 1 ML CARP\\VIAL IV PRN (11:56)
--- NOTE | 2024-07-29 11:57 | XRay Report ---
XR chest 1V portable CLINICAL HISTORY: abd pain TECHNIQUE: Single frontal radiograph of the chest was obtained. Comparison: Comparison is made to chest radiograph 09/22/2023 FINDINGS: No lines and tubes are seen. The cardiomediastinal silhouette is normal. The lungs are clear. No evid ence of pleural effusion or pneumothorax. IMPRESSION: No acute chest disease. ACT 112: Negative or not required by law. Electronically signed by: Alonso Pollard M.D. 07/29/2024 11:56 AM
[2024-07-29 12:22] LABS: Albumin Globulin Ratio 1.4 (0.9-2); BUN Creatinine Ratio 9.5 (10-20); Bilirubin,Total 0.4 mg/dl (0.2-1.0); Calcium 9.6 mg/dl (8.6-10.3); Creatinine Clr Calc Pharmacy 56.9 ml/min; Globulin 2.8 gm/dl (2.5-4.0); Potassium 4.8 mmol/L (3.5-5.1); Total Protein 6.8 gm/dl (6.0-8.3); Troponin I High Sensitivity 3.7 pg/ml (0-14)
[2024-07-29] MEDS: OPTIRAY 320 125ml IV ONE (13:04)
[2024-07-29 13:52] LABS: Appearance Urine Clear (Clear); Bacteria Urine Automated 1+ (None Seen); Bilirubin Urine Negative (Negative); Blood Urine Negative (Negative); Cast Urine Automated 0-2 /lpf (0-2); Color Urine Yellow; Glucose Urine UA 2+ (Negative); Ketones Urine 2+ (Negative); Leukocyte Esterase Urine 1+ (Negative); Nitrite Urine Negative (Negative); Protein Urine Negative (Negative); RBC Urine Automated 0-2 /hpf (0-2); Specific Gravity Urine > 1.045 (1.000-1.030); Urobilinogen Urine Negative (Negative); pH Urine 6.5 (4.5-7.5)
--- NOTE | 2024-07-29 14:26 | CT Scan Report ---
CT angio abdomen pelvis w con CLINICAL HISTORY: pain TECHNIQUE: Multidetector row helical CT of the abdomen and pelvis was performed, following intravenou s administration of iodinated contrast. No oral contrast was administered. Automated dose lowering te chniques and/or adjustment according to patient size were utilized for this exam. Coronal and sagitta l reformations were obtained. MIP and 3D volume rendered reconstructions were obtained. CT DOSE: 603.89 mGy.cm Comparison: None available at the time of this dictation. FINDINGS: Lower chest: No acute abnormality Liver: Unremarkable. No focal lesions are seen. Gallbladder and biliary tree: No calcified gallstones. Normal caliber wall. No intra- or extrahepatic biliary ductal dilation. Pancreas: Unremarkable, no focal lesions. Spleen: Unremarkable. Adrenals: Unremarkable. Kidneys and ureters: Unremarkable. Bladder: Unremarkable. Reproductive organs: Unremarkable. Bowel: Diverticulosis is seen without evidence of diverticulitis. A small hiatal hernia is seen Lymph nodes Retroperitoneal: Unremarkable. Pelvic: Unremarkable. Mesenteric: Unremarkable. Peritoneum: Normal. Abdominal wall: Unremarkable. Bones: Right hip arthroplasty and left femoral nail is seen. CT angiogram: The abdominal aortic contours appear intact without evidence of aneurysmal dilatation a nd/or dissection. No significant atherosclerosis is seen. The origins of the celiac axis, superior mesenteric, inferior mesenteric and bilateral renal arteries are patent. Incidentally noted, there are 2 left renal arteries. IMPRESSION: Diverticulosis without diverticulitis. Additional findings as above. ACT 112: Negative or not required by law. Electronically signed by: Alonso Pollard M.D. 07/29/2024 2:24 PM
--- NOTE | 2024-07-29 15:24 | History & Physical Report ---
Date of Service July 29, 2024 Assessment & Plan (1) Abdominal pain: (2) Major depressive disorder, recurrent episode, severe with anxious distress: (3) Insomnia: (4) Insulin-requiring or dependent type II diabetes mellitus: Plan This patient is a 69-year-old female with PMH of major depressive disorder with recent suicide attempt by Seroquel ingestion and 03/2024, current smoker, HTN, DM2, vertigo, HL, hypothyroidism, and GERD who presents to the ER with acute on chronic abdominal pain. #Abdominal pain She has had an extensive workup over the last several months which is all been negative. Suspect muscle spasm/trigger points versus functional abdominal pain or somatization from undertreated depression/anxiety. CTA A/P here negative for mesenteric artery stenosis or any other acute issues. Labs are normal, vitals are normal. Pain is now relieved with morphine but patient continues to complain of severe anxiety and causing stiffness in all the muscles in her body -Admit on observation to medical/surgical unit for treatment of pain and anxiety -She declines to have psychiatry consultation while here and denies SI/HI. She does already follow outpatient every 2 weeks with a therapist and also frequently with psychiatry provider -Continue IV morphine as needed, dicyclomine although she reports has not helped in the past -Trial p.o. Ativan for anxiety and muscle relaxation -Will ask nurse navigator to arrange referral to pain management for possible trigger point injections as an outpatient -Okay for regular diet #MDD Patient stopped her bupropion, Lexapro, and mirtazapine about 2 months ago on her own accord. She does follow outpatient regularly with therapy and psychiatry and recently started on Prozac Complains mostly of significant insomnia related to chronic abdominal pain-her psychiatrist recently called her and lorazepam but she has not yet picked it up -Continue Prozac 20 mg daily, hydroxyzine 10 mg p.o. twice daily as needed anxiety -Start lorazepam 0.5 Mg p.o. every 6 hours as needed anxiety or insomnia to see if also helps abdominal pains -Patient declines psychiatric consultation #HTN/HL Blood pressures are controlled here to mildly elevated -Continue home lisinopril and pravastatin, aspirin #DMII Blood sugars elevated here at 300 on arrival likely due to stress response due to severe anxiety -Continue Lantus 18 units at bedtime and NovoLog supplemental insulin -Accu-Cheks and diabetic diet #Hypothyroidism TSH was recently normal at 0.32 in 03/2024 Continue home levothyroxine #Current smoker-continue to encourage cessation #GERD-continue PPI DVT prophylaxis-SCDs Disposition-admit on observation to medical/surgical unit, expect likely discharge to home on 07/30 Admission and Anticipated Discharge Date Anticipated date of discharge: 07/30/24 History of Present Illness Chief Complaint: Abdominal pain Primary Care Provider: Heather Heath This patient is a 69-year-old female with PMH of major depressive disorder with anxiety with recent suicide attempt by Seroquel ingestion in 03/2024, current smoker, HTN, DM2, HL, hypothyroidism, and GERD who presents to the ER with ongoing but worsening/acute on chronic abdominal pain. She reports she had a bout of diverticulitis in November 2023 which was treated and the pain did improve but has really never gone away since that time. She has mid to lower abdominal pain every single day and nothing has really made it better. She had a colonoscopy which did not show any major abnormalities. She has now had 2 CT abdomen/pelvis including 1 CT angiogram abdomen/pelvis here in the ER that are normal in the last 6 months. The pain feels at times like severe menstrual cramps. She moves her bowels once a day and denies any blood in the stool. She does not have nausea or vomiting but sometimes just has no appetite. She does admit to severe anxiety and depression, and has been isolating herself at home with no motivation to go out and do anything. She denies SI/HI. She took herself off all of her previous psychiatric medications about 2 months ago and then her outpatient psychiatric provider finally convinced her to resume Prozac 20 mg just about a couple of weeks ago. She reports that the abdominal pain keeps her up often through the night and she has not had a solid nights rest in 6 months. The abdominal pain did significantly worsen over the last 4 to 5 days which is why she came to the ER. In the ER, she had a fairly unremarkable laboratory workup except for hyperglycemia. Lactate was normal, LFTs normal, lipase normal. UA showed dehydration and was contaminated with epithelial cells. She denies urinary symptoms. In general, she is extremely distressed about why no one can find the cause of her abdominal pain. We did discuss the fact that it could be functional abdominal pain or perhaps trigger points in the abdomen as well as somatic abdominal pain based on significant depression/anxiety. Allergies Allergy/AdvReac Type Severity Reaction Status Date / Time No Known Allergies Allergy Verified 01/06/24 08:53 Home Medications Medication Instructions Recorded Confirmed Type levothyroxine 112 mcg tablet 112 mcg PO DAILYBB 11/22/21 07/29/24 History (Euthyrox) aspirin 81 mg tablet,delayed 81 mg PO QAM 06/18/23 07/29/24 History release insulin aspart U-100 100 unit/mL 1 sliding scale dose subcut 09/04/23 07/29/24 Rx (3 mL) subcutaneous pen (Novolog USEASDIRECTD #15 mL FlexPen U-100 Insulin aspart) multivitamin with folic acid 400 1 tab PO DAILY #1 tab 09/11/23 07/29/24 Rx mcg tablet (Daily-Arleen (with folic acid)) cholecalciferol (vitamin D3) 25 25 mcg PO QAM 11/23/23 07/29/24 History mcg (1,000 unit) capsule lactobacillus combination no.9 4 4,000 mmu cells PO QAM 11/23/23 07/29/24 History billion cell capsule (Adult 50 Plus Probiotic) insulin glargine 100 unit/mL (3 18 unit subcut HS 03/13/24 07/29/24 History mL) subcutaneous pen (Basaglar KwikPen U-100 Insulin) lisinopril 20 mg tablet 20 mg PO BID 03/13/24 07/29/24 History pravastatin 40 mg tablet 40 mg PO HS 03/14/24 07/29/24 History dicyclomine 20 mg tablet 20 mg PO QID PRN Abdominal Pain 07/29/24 07/29/24 History fluoxetine 20 mg capsule 20 mg PO DAILY 07/29/24 07/29/24 History hydroxyzine HCl 10 mg tablet 10 mg PO BID PRN Anxiety 07/29/24 07/29/24 History pantoprazole 40 mg tablet,delayed 40 mg PO QAM 07/29/24 07/29/24 History release Past Med/Surg History Problem List Abdominal pain (Acute) Insomnia Major depressive disorder, recurrent episode, severe with anxious distress Depression (Acute) Slurred speech (Acute) History of diverticulitis GERD (gastroesophageal reflux disease) Iron deficiency Acute hyponatremia (Acute) Nausea and vomiting Chronic hyponatremia Insulin-requiring or dependent type II diabetes mellitus Fall (Acute) Head injury (Acute) Laceration of scalp (Acute) Closed intertrochanteric fracture of left hip (Acute) Epigastric pain Tobacco use (Acute) Acute hyponatremia (Acute) Abdominal pain (Acute) Vertigo Dyslipidemia Dizziness Rotary nystagmus (Acute) Ataxia (Acute) Hypothyroidism (Chronic) Major depressive disorder, recurrent severe without psychotic features Tobacco use disorder Diarrhea Suicidal ideation (Acute) Hyperglycemia due to type 1 diabetes mellitus (Acute) Abdominal pain (Acute) HTN (hypertension) (Chronic) Medical History Suicidal ideation Overdose History of stroke History of suicidal ideation (2014) Hx of fracture of left hip (06/2023) surgery Hx of fall (06/2023) fx femure, head injury, scalp lac Chronic hyponatremia Nausea and vomiting Iron deficiency 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, "I don't walk like i did before" History of colon polyps Epigastric pain Hx of bronchitis (2017) tx with inhaler at the time, no issues since Hyperlipemia Hypertension Hypothyroidism History of stroke (2021) "minor" no deficits, no neurologist, treated at [facility] and [facility] Hx of major depression Hx of diverticulitis of colon Diverticulosis Diabetes mellitus IDDM Surgical History Hx of tonsillectomy Hx of esophagogastroduodenoscopy Hx of colonoscopy with polypectomy History of (1991) History of right hip replacement (2020) History of open reduction and internal fixation (ORIF) procedure (11/2020) right wrist History of open reduction and internal fixation (ORIF) procedure (06/2023) Left femur, due to fall Family History Brother Hypertension Social History (Updated 07/29/24 @ 19:46 by Frannie Pruitt MD) Smoking Status: Current every day smoker Tobacco Type: Cigarettes Cigarettes Per Day: 10; Second Hand Exposure: No; Do You Dip or Chew Tobacco: No; Hx Alcohol Use: No Hx Substance Use: No Preferred Language: Malagasy Communication Ability: Effective 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 Warehouse Manager Required: No Beliefs That Will Affect Care: None marital status: / Current Living Situation: Alone current occupational status: retired How many Children do You have: 1 Feels Safe at Home: Yes Gender Identity: Female Assistive Devices: Glasses and Walker Review of Systems Review of Systems: All systems reviewed & are unremarkable except as noted in HPI & below Physical Exam Constitutional: WD/WN, vitals as above Eyes: PERRL, conjunctivae normal, anicteric sclerae ENMT: external ear and nose normal, oropharynx normal Neck: trachea midline, no thyromegaly Respiratory: normal respiratory effort, lungs clear to auscultation Cardiovascular: RRR, no murmur, no edema Chest (Breasts): Chest: normal inspection of chest Gastrointestinal (Abdomen): Inspection/Auscultation: abdomen normal to inspection and normal bowel sounds; abdomen not distended Percussion/Palpation: + abdomen tender (Mild in lower abdomen without guarding or rebound) and abdomen soft; abdomen not rigid and no hernia Musculoskeletal: Extremities: extremities normal to inspection; no cyanosis and no clubbing Skin: no rashes, warm and dry Neurologic: moves all extremities and awake; no focal motor deficits Psychiatric: Orientation: alert and oriented x 3 Affect: + anxious affect Mood: + anxious mood Suicidal Thoughts: denies suicidal thoughts Homicidal Thoughts: denies homicidal thoughts Lymphatic: no lymphedema Results & Data Results & Data Vital Signs (Past 12 Hours) Vital Signs Temp Pulse Pulse Resp BP BP Pulse Ox 07/29/24 13:30 62 16 163/77 H 95 07/29/24 12:14 69 14 92 07/29/24 12:09 69 15 160/93 H 92 07/29/24 12:04 68 07/29/24 12:00 78 14 160/93 H 96 07/29/24 10:53 36.5 C 80 22 147/72 H 94 O2 Del Method 07/29/24 13:30 07/29/24 12:14 07/29/24 12:09 Room Air 07/29/24 12:04 07/29/24 12:00 07/29/24 10:53 Room Air Laboratory Results CBC, CMP, troponin, lipase, UA reviewed Diagnostic Findings Chest x-ray and CT angiogram abdomen/pelvis reviewed ECG Additional Comments: ECG on 07/29/2024 with normal sinus rhythm, rate 77, no acute ischemic changes Code Status & VTE Plan Code Status Full code VTE Prophylaxis Plan VTE Prophylaxis will be ordered: Yes PG Care Time/CCT Total # of Minutes Spent Total Time Spent with Patient: Total time spent is greater than 50% in coordination of care (as documented) at patient's floor/unit and/or counseling patient: Coding Level of Care Code 21028 INT INP/OBS CARE 2/55MIN Diagnoses Abdominal pain R10.84 Abdominal location: generalized Major depressive disorder, recurrent episode, severe with anxious distress F33.2 Insomnia G47.00 Insulin-requiring or dependent type II diabetes mellitus E11.9; Z79.4 (1) Abdominal pain Abdominal location: generalized Qualified Code(s): R10.84 - Generalized abdominal pain
--- NOTE | 2024-07-29 16:45 | Electrocardiogram Report ---
Test Reason : Blood Pressure : */* mmHG Vent. Rate : 77 BPM Atrial Rate : 77 BPM P-R Int : 128 ms QRS Dur : 90 ms QT Int : 392 ms P-R-T Axes : 72 -22 82 degrees QTcB Int : 443 ms Normal sinus rhythm Anteroseptal infarct (cited on or before 18-Jun-2023) Abnormal ECG When compared with ECG of 14-Mar-2024 10:32, Questionable change in initial forces of Anterior leads T wave inversion no longer evident in Inferior leads Confirmed by Asha Zuniag (Carmen) on 07/29/2024 4:44:48 PM Referred By: REFERRED SELF Confirmed By: Asha Zuniga
[2024-07-29] MEDS ORDERED: DEXTROSE 50% 50 ML SYRINGE IV PRN (19:48)
[2024-07-29] MEDS ORDERED: GLUCOSE 40% GEL 15 GM TUBE PO PRN (19:48)
[2024-07-29] MEDS ORDERED: ALUMINUM/MAGNESIUM SUSP 30 ML UDC PO PRN (19:48)
[2024-07-29] MEDS ORDERED: GLUCAGON FOR INJ 1 MG VIAL SQ PRN (19:48)
[2024-07-29] MEDS ORDERED: ONDANSETRON INJ 2 MG/ML 2 ML VIAL IV PRN (19:48)
[2024-07-29] MEDS ORDERED: ACETAMINOPHEN 325 MG TAB PO PRN (19:48)
[2024-07-29] MEDS ORDERED: GLUCOSE 10 TAB/TUBE PO PRN (19:48)
[2024-07-29] MEDS ORDERED: MoRPHine SULFATE 2 MG/ML CARP IV PRN (19:48)
[2024-07-29] MEDS ORDERED: MELATONIN 3 MG TAB PO PRN (19:48)
[2024-07-29] MEDS: DOCUSATE SODIUM/SENNA 50/8.6MG TAB PO SCH (20:21)
[2024-07-29] MEDS: lisinopril 20 MG TAB PO SCH (20:21)
[2024-07-29] MEDS: PRAVASTATIN SOD 40 MG TAB PO SCH (20:21)
[2024-07-29] MEDS: POLYETHYLENE (MIRALAX) 17 GM PACK PO SCH (20:21)
[2024-07-29] MEDS: INSULIN ASPART PER UNIT CHARGE SC SCH (22:05)
[2024-07-29] MEDS: LANTUS PER UNIT CHARGE SQ SCH (22:05)
[2024-07-30] MEDS: CARBOHYDRATES FOR HYPOGLYCEMIA PO PRN (04:14)
[2024-07-30] MEDS: LORazepam 0.5 MG TAB PO PRN (04:32)
[2024-07-30] MEDS: LEVOTHYROXINE SODIUM 112 MCG TABLET PO SCH (05:27)
[2024-07-30 07:19] LABS: Estimated Average Glucose 192 mg/dl; Hemoglobin A1C 8.3 % (4.5-5.6)
[2024-07-30] MEDS: FLUoxetine HCL 20 MG CAP PO SCH (07:39)
[2024-07-30] MEDS: PANTOprazole 40 MG TAB PO SCH (07:39)
[2024-07-30] MEDS: ASPIRIN 81 MG ECTAB PO SCH (07:40)
[2024-07-30] MEDS: ADVANCED PROBIOTIC 625 MG CAPSULE PO SCH (07:40)
[2024-07-30] MEDS: MULTIVITAMIN TAB PO SCH (07:40)
[2024-07-30] MEDS: hydrOXYzine HCl 10 MG TAB PO PRN (08:48)
[2024-07-30] MEDS ORDERED: LANTUS PER UNIT CHARGE SQ SCH (09:00)
--- NOTE | 2024-07-30 10:28 | Hospitalist Progress Note ---
Date of Service July 30, 2024 Assessment & Plan (1) Abdominal pain: Plan: Chronic. She has had an extensive GI evaluation as an outpatient. Admission CT scan was unremarkable. Will use Benton as needed. Hopefully she can go home tomorrowJuly 31 (2) Major depressive disorder, recurrent episode, severe with anxious distress: Plan: Stable. Continue current medical management (3) Insomnia: Plan: Stable. Continue current medical management (4) Insulin-requiring or dependent type II diabetes mellitus: Plan: ADA diet. Basal insulin therapy. Sliding scale coverage if needed Plan This patient is a 69-year-old female with PMH of major depressive disorder with recent suicide attempt by Seroquel ingestion and 03/2024, current smoker, HTN, DM2, vertigo, HL, hypothyroidism, and GERD who presents to the ER with acute on chronic abdominal pain. Hopeful discharge to home tomorrowJuly 31 Admission and Anticipated Discharge Date Admission Date: July 29, 2024 Subjective Alert and oriented. Her abdominal complaints are chronic and she has previously had an extensive GI evaluation. CT of the abdomen on admission was unremarkable. Will discontinue IV morphine since she will not be using this at home and simply use Benton as needed. Hopefully she can go home tomorrow, July 31, and follow-up with her outpatient physicians Review of Systems 2 Review of Systems: Constitutionalno fever or chills ENTno blurred vision, no double vision, no epistaxis, no sore throat Respiratoryno cough, no wheezing, no shortness of breath Cardiacno palpitations, no chest pain, no syncope GIchronic abdominal discomfort. No vomiting. She denies constipation, diarrhea, melena, hematochezia GUno urinary retention, no urinary incontinence, no dysuria, no hematuria Musculoskeletalno joint pain, no muscle tenderness Skinno bruising, no rashes, no pruritus Neurono isolated weakness, no paresthesia, no weakness Psychno depression, no anxiety Physical Exam 2 Physical Exam: General-alert and oriented x3, no fever, no chills HEENT-head atraumatic and normocephalic, pupils equal and reactive to light, extraocular muscles intact Neck-no lymphadenopathy or thyromegaly, trachea midline Chest-clear to auscultation. No rales, wheezing or rhonchi Cardiac-regular rate and rhythm, normal S1 and S2 Abdomen-nondistended. Bowel sounds are active. Diffuse mild tenderness to palpation. No rebound or guarding. No masses Extremity-no cyanosis, clubbing, or edema Neuro-cranial nerves II through XII intact, motor and sensory function within normal limits, strength symmetrical, no focal deficits Psych-depressed affect Results & Data Results & Data Vital Signs (Past 12 Hours) Vital Signs Temp Pulse Resp BP Pulse Ox O2 Del Method 07/30/24 07:37 Room Air 07/30/24 07:34 36.8 C 69 16 162/87 H 90 Room Air Laboratory Results 07/29/24 11:27 07/29/24 11:27 PG Care Time/CCT Total # of Minutes Spent Total Time Spent with Patient: Total time spent is greater than 50% in coordination of care (as documented) at patient's floor/unit and/or counseling patient: Coding Level of Care Code 08644 SUB INP/OBS CARE 2/35MIN Diagnoses Abdominal pain R10.84 Abdominal location: generalized Major depressive disorder, recurrent episode, severe with anxious distress F33.2 Insomnia G47.00 Insulin-requiring or dependent type II diabetes mellitus E11.9; Z79.4 (1) Abdominal pain Abdominal location: generalized Qualified Code(s): R10.84 - Generalized abdominal pain
[2024-07-30] MEDS: DICYCLOMINE HCL 20 MG TAB PO PRN (22:47)
[2024-07-31] MEDS: HYDROCODONE/ACETAMOPHEN 5/325MG TAB PO PRN (00:54)
--- NOTE | 2024-07-31 12:57 | XRay Report ---
Clinical history: Pain 2 views of the abdomen were obtained Findings: The bowel gas pattern appears unremarkable. No renal or ureteral calculi are seen. No foreign body is evident. There is a right hip replacement. There is internal fixation of the left femur. There are old healed pubic rami fractures bilaterally Impression: Unremarkable abdominal radiographs Electronically signed by Rojelio Hunt 07-31-2024 12:56 PM
--- NOTE | 2024-07-31 14:39 | Hospitalist Progress Note ---
Date of Service July 31, 2024 Assessment & Plan (1) Abdominal pain: (2) Major depressive disorder, recurrent episode, severe with anxious distress: (3) Insomnia: (4) Insulin-requiring or dependent type II diabetes mellitus: Plan This patient is a 69-year-old female with PMH of major depressive disorder with recent suicide attempt by Seroquel ingestion and 03/2024, current smoker, HTN, DM2, vertigo, HL, hypothyroidism, and GERD who presents to the ER with acute on chronic abdominal pain. #Abdominal pain She has had an extensive workup over the last several months which is all been negative. Suspect muscle spasm/trigger points versus functional abdominal pain or somati zation from undertreated depression/anxiety. CTAP negative for mesenteric artery stenosis or any other acute issues. KUB read as negative but stool visualized in colon on personal interpretation. -IV morphine discontinued. -Bentyl and hydrocodone/APAP prn for pain - only use hydrocodone/APAP for severe pain as this will worsen her constipation. -on senokot tabs for constipation, added Miralax BID. -recommend outpatient referral to pain management for trigger point injections. -consider trial of amitriptyline although this should be discussed with her psychiatrist prior to starting given medication interactions. - defer outpatient. #MDD Patient stopped her bupropion, Lexapro, and mirtazapine about 2 months ago on her own accord. She does follow outpatient regularly with therapy and psychiatry and recently started on Prozac Complains mostly of significant insomnia related to chronic abdominal pain-her psychiatrist recently called her and lorazepam but she has not yet picked it up -Continue Prozac 20 mg daily, hydroxyzine 10 mg p.o. twice daily as needed anxiety -Start lorazepam 0.5 Mg p.o. every 6 hours as needed anxiety or insomnia to see if also helps abdominal pains -Patient declines psychiatric consultation. #DMII episode of hypoglycemia overnight 07/31 - unknown etiology. suspect due to patient's lack of appetite. #Chronic conditions: HTN: Lisinopril HLD: pravastatin Hypothyroidism: levothyroxine GERD: PPI DVT prophylaxis-SCDs Disposition: medical - discharge pending stabilization of patient's abdominal pain. Code status: full Admission and Anticipated Discharge Date Admission Date: July 31, 2024 Subjective Patient seen and examined this morning. Patient with complaints of "severe" abdominal pain. She was tearful at time of my encounter. Reports the pain has been bothering her on and off since the summer but has been more persistent lately. She believes one medication she is receiving her helps the pain calm down but is unsure of which one. She states she has not been eating much. she reports no BM x 3 days thus far. Denies history of constipation. Physical Exam Constitutional: WD/WN, vitals as above Respiratory: normal respiratory effort, lungs clear to auscultation Cardiovascular: RRR, no murmur, no edema Gastrointestinal (Abdomen): generalized tenderness to palpation. + BS Psychiatric: A+Ox3, euthymic affect Results & Data Results & Data Vital Signs (Past 12 Hours) Vital Signs Temp Pulse Resp BP Pulse Ox O2 Del Method 07/31/24 07:34 36.8 C 65 16 114/61 95 Room Air PG Care Time/CCT Total # of Minutes Spent Total Time Spent with Patient: Total time spent is greater than 50% in coordination of care (as documented) at patient's floor/unit and/or counseling patient: Coding Level of Care Code 51637 SUB INP/OBS CARE 2/35MIN Diagnoses Abdominal pain R10.84 Abdominal location: generalized Major depressive disorder, recurrent episode, severe with anxious distress F33.2 Insomnia G47.00 Insulin-requiring or dependent type II diabetes mellitus E11.9; Z79.4 (1) Abdominal pain Abdominal location: generalized Qualified Code(s): R10.84 - Generalized abdominal pain
[2024-07-31] MEDS: POLYETHYLENE (MIRALAX) 17 GM PACK PO SCH (20:29)
[2024-07-31] MEDS: MAGNESIUM HYDROXIDE SUSP 30 ML UDC PO PRN (20:32)
[2024-08-01 08:15] VITALS: BP 112/68; PULSE 75; RESP 16; TEMP 97.9; O2SAT 94
[2024-08-01] MEDS: LANTUS PER UNIT CHARGE SQ SCH (08:16)
[2024-08-01] MEDS ORDERED: PHARMACY GLYCEMIC MGMT CONSULT PRN (09:16)
--- NOTE | 2024-08-01 09:45 | Pharmacy Report ---
Pharmacy Glycemic Short Note 2 - Date of Service August 01, 2024 - Glycemic Short BSG Results (Last 24 hours): 07/31/24 07/31/24 07/31/24 11:40 16:36 20:35 POC Glucose 147 H 210 H 291 H 08/01/24 08/01/24 08/01/24 07:42 07:45 09:01 POC Glucose 439 H* 391 H* 408 H* 08/01/24 09:03 POC Glucose 435 H* OUTPATIENT ANTIDIABETIC REGIMEN: * Lantus 18 units hs, Novolog SSI ASSESSMENT: * 69 year old admitted with abdominal pain. Pharmacy consulted for glycemic management. BSGs >300 this AM - basal insulin restarted this AM. Did not receive any basal insulin on 07/29-07/31. Did have a low BSG value 07/30 AM and 07/31 AM. PO intake poorer currently. Reasonable to continue current parameters for now. PLAN FOR INPATIENT GLYCEMIC CONTROL: * Hold outpatient oral diabetes medications * Basal insulin * Lantus 10 units once daily * Bolus insulin * NovoLog per scale ACHS or Q6hrs while NPO * Goal Range: Low 100 mg/dL - High 140 mg/dL * Correction Factor: 30 mg/dL/unit * Nutritional / Prandial insulin per carb ratio of 1 unit per -- grams CHO consumed
[2024-08-01 09:56] LABS: Mean Corpuscular Hemoglobin 31.2 pg (25.0-34.0); Mean Corpuscular Hgb Conc 34.1 g/dL (32.0-36.0); Mean Corpuscular Volume 91.3 fL (80.0-100.0); Mean Platelet Volume 10.3 fL (9.4-12.4); Platelet Count 281 K/uL (130-400); RDW Coefficient of Variation 13.4 % (11.5-14.5); Red Blood Count 4.49 M/uL (4.20-5.40); White Blood Count 16.56 K/ul (4.8-10.8)
[2024-08-01 10:38] LABS: BUN Creatinine Ratio 17.8 (10-20); Calcium 9.2 mg/dl (8.6-10.3); Creatinine Clr Calc Pharmacy 44.7 ml/min
--- NOTE | 2024-08-01 13:59 | Discharge Summary ---
Discharge Summary Date of Service August 01, 2024 Principal Dx & Hospital Course #1 = Principal Diagnosis (1) Abdominal pain: (2) Major depressive disorder, recurrent episode, severe with anxious distress: (3) Insomnia: (4) Insulin-requiring or dependent type II diabetes mellitus: Plan This patient is a 69-year-old female with PMH of major depressive disorder with recent suicide attempt by Seroquel ingestion and 03/2024, current smoker, HTN, DM2, vertigo, HL, hypothyroidism, and GERD who presents to the ER with acute on chronic abdominal pain. #Abdominal pain She has had an extensive workup over the last several months which is all been negative. Suspect muscle spasm/trigger points versus functional abdominal pain or somatization from undertreated depression/anxiety. CTAP negative for mesenteric artery stenosis or any other acute issues. KUB negative. -Pain has improved with bowel regimen (senna and miralax), as needed Ativan (already has rx at pharmacy). Recommend continue Bentyl. -outpatient referral to pain management for trigger point injections. -consider trial of amitriptyline - defer to her psychiatrist prior to starting given medication interactions. Outpatient GI f/u #MDD Patient stopped her bupropion, Lexapro, and mirtazapine about 2 months ago on her own accord. She does follow outpatient regularly with therapy and psychiatry and recently started on Prozac Complains mostly of significant insomnia related to chronic abdominal pain-her psychiatrist recently called her and lorazepam but she has not yet picked it up. Otherwise reports her mental health has been stable. -Continue Prozac 20 mg daily, hydroxyzine 10 mg p.o. twice daily as needed anxiety -Continue lorazepam 0.5 Mg p.o. every 6 hours as needed anxiety or insomnia - which has also been benefiting her abd pain -Patient declined psychiatric consultation. #DMII episode of hypoglycemia overnight 07/31 - unknown etiology. Hgb A1c 8.3 Significant elevations (400s) this AM after discontinuation of lantus. Lantus resumed, 10 units this morning, okay for 10 units tonight at home and then continue home dosing. #Chronic conditions: HTN: Lisinopril HLD: pravastatin Hypothyroidism: levothyroxine GERD: PPI Dispo: discharge to home today Notes For Next Care Provider consider amitriptyline, would defer to patient's psychiatrist given multiple medication usage in the past. Medication Changes From Visit advised to use as needed Ativan, already has prescription at pharmacy Admission HPI Per Admitting Provider This patient is a 69-year-old female with PMH of major depressive disorder with anxiety with recent suicide attempt by Seroquel ingestion in 03/2024, current smoker, HTN, DM2, HL, hypothyroidism, and GERD who presents to the ER with ongoing but worsening/acute on chronic abdominal pain. She reports she had a bout of diverticulitis in November 2023 which was treated and the pain did improve but has really never gone away since that time. She has mid to lower abdominal pain every single day and nothing has really made it better. She had a colonoscopy which did not show any major abnormalities. She has now had 2 CT abdomen/pelvis including 1 CT angiogram abdomen/pelvis here in the ER that are normal in the last 6 months. The pain feels at times like severe menstrual cramps. She moves her bowels once a day and denies any blood in the stool. She does not have nausea or vomiting but sometimes just has no appetite. She does admit to severe anxiety and depression, and has been isolating herself at home with no motivation to go out and do anything. She denies SI/HI. She took herself off all of her previous psychiatric medications about 2 months ago and then her outpatient psychiatric provider finally convinced her to resume Prozac 20 mg just about a couple of weeks ago. She reports that the abdominal pain keeps her up often through the night and she has not had a solid nights rest in 6 months. The abdominal pain did significantly worsen over the last 4 to 5 days which is why she came to the ER. In the ER, she had a fairly unremarkable laboratory workup except for hyperglycemia. Lactate was normal, LFTs normal, lipase normal. UA showed dehydration and was contaminated with epithelial cells. She denies urinary symptoms. In general, she is extremely distressed about why no one can find the cause of her abdominal pain. We did discuss the fact that it could be functional abdominal pain or perhaps trigger points in the abdomen as well as somatic abdominal pain based on significant depression/anxiety. Discharge Exam General: NAD, VS as above Resp: normal respiratory effort, lungs clear to auscultation CV: RRR, no murmur, Abd: normal bowel sounds, Mild general tenderness, no definitive trigger poi nts identified. Patient states that her pain is usually worse in the umbilical/epigastric region. no hepatosplenomegaly Extremities: Moves all extremities, no edema Neuro: A&O x3, Skin: intact, no lesions noted Discharge Plan Discharge Items Patient Disposition: Home - Self-Care Reason For Visit: ABDOMINAL PAIN Discharge Diagnosis: abdominal pain Condition on Discharge: Good Activity: Resume your previous activity Weightbearing: Full weightbearing Non-emergency contact: Primary Care Provider Call non-emergency contact if: you have any medication questions, your pain is not controlled and your pain is worsening Follow-up/Referrals: Heather Heath PA-C [Primary Care Provider] - 08/14/24 1:20 pm Diet: Carb Consistent or DM2 Addtl Attending Provider Instructions: Ms. Padilla, You were hospitalized after worsening abdominal pain. Thankfully all of your scans did not show anything new to acutely be causing your pain. There is a chance that there is a psycho-somatic component to your pain. It is important to continue your antidepressants and follow up with your psych providers. - Recommend continue bowel regimen to prevent constipation - sennakot and miralax over the counter - breakfast supervisor ativan previously prescribed and use as needed. Continue to use Bentyl at home for pain. - Keep follow up with GI - Quitting smoking is likely to help your abdominal pain. You were given 10 units of lantus this morning, please only take 10 units tonight 08/01. Tomorrow, 08/02 you can resume your normal bedtime dosing. Activity: You can do normal everyday activities as your body allows. Take rest breaks if you feel tired. Do not overexert. Stop activity if you have pain, shortness of breath or feel dizzy. Follow-up appointments: Make an appointment with your primary care physician within one week of discharge. A copy of this summary will be sent to them. Every time you see your primary care physician, or any other doctor, bring your medication list, and a list of questions. CONTACT YOUR PRIMARY CARE PROVIDER if you experience any of the following: Shortness of breath or difficulty breathing Fevers or chills Feeling tired with normal activity or experiencing dizziness or fainting Difficulty following your treatment plan, or difficulty taking medications CALL 911 OR GO TO THE EMERGENCY DEPARTMENT if you experience any of the following: Severe abdominal pain or nausea/vomiting Severe chest pain, or chest pain that radiates (moves) to your jaw or arm Sudden, severe shortness of breath or difficulty breathing Thank you for allowing us to participate in your care. FARIBA Smith Pending Studies at Discharge: No Stand-Alone Forms: My [facility], Smoking Cessation Medications and DC Order Prescriptions: New lorazepam 0.5 mg Tablet 0.5 mg PO Q6H PRN (Reason: anxiety) Qty: 30 0RF sennosides-docusate sodium [Senokot-S] 8.6-50 mg Tablet 1 tab PO QAM Qty: 30 0RF Continued cholecalciferol (vitamin D3) 25 mcg (1,000 unit) capsule 25 mcg PO QAM Adult 50 Plus Probiotic 4 billion cell capsule 4,000 mmu cells PO QAM levothyroxine [Euthyrox] 112 mcg tablet 112 mcg PO DAILYBB aspirin 81 mg Tablet,Delayed Release (Dr/Ec) 81 mg PO QAM multivitamin with folic acid [Daily-Arleen (with folic acid)] 400 mcg Tablet 1 tab PO DAILY Qty: 1 0RF lisinopril 20 mg tablet 20 mg PO BID insulin glargine [Basaglar KwikPen U-100 Insulin] 100 unit/mL (3 mL) insulin pen 18 unit SUBCUT HS Rx Instructions: if having consecutive lows, decrease to 15 u until contact primary care o ffice insulin aspart U-100 [Novolog FlexPen U-100 Insulin] 100 unit/mL (3 mL) Insulin Pen 1 sliding scale dose subcut USEASDIRECTD MDD 25 unit Qty: 15 0RF Rx Instructions: -Goal BSG Range: Low 110_mg/dL, High 140_mg/dL --Correction Factor: 20_mg/dL/unit --Carbohydrate ratio = _12_ g/unit pravastatin 40 mg Tablet 40 mg PO HS dicyclomine 20 mg tablet 20 mg PO QID PRN (Reason: Abdominal Pain) pantoprazole 40 mg tablet,delayed release (DR/EC) 40 mg PO QAM hydroxyzine HCl 10 mg tablet 10 mg PO BID PRN (Reason: Anxiety) fluoxetine 20 mg capsule 20 mg PO DAILY Discharge Orders: Discharge Order (Routine); Ordered 08/01/24 Ordered By: Sarah Cohen Admission Data Admit Date/Time: 07/31/24 10:51 Attending Provider: Kole Rehman Admit Provider: Frannie Pruitt Primary Care Provider: Heather Heath Other Providers: Frannie Pruitt Hospital Stay Data Consultations 07/29/24 15:15 ED Decision to Admit Stat Diagnostic Imagining Performed Abdomen/Pelvis CTA 07/29/24 11:04 CT angio abdomen pelvis w con CLINICAL HISTORY: pain TECHNIQUE: Multidetector row helical CT of the abdomen and pelvis was performed, following intravenous administration of iodinated contrast. No oral contrast was administered. Automated dose lowering techniques and/or adjustment according to patient size were utilized for this exam. Coronal and sagittal reformations were obtained. MIP and 3D volume rendered reconstructions were obtained. CT DOSE: 603.89 mGy.cm Comparison: None available at the time of this dictation. FINDINGS: Lower chest: No acute abnormality Liver: Unremarkable. No focal lesions are seen. Gallbladder and biliary tree: No calcified gallstones. Normal caliber wall. No intra- or extrahepatic biliary ductal dilation. Pancreas: Unremarkable, no focal lesions. Spleen: Unremarkable. Adrenals: Unremarkable. Kidneys and ureters: Unremarkable. Bladder: Unremarkable. Reproductive organs: Unremarkable. Bowel: Diverticulosis is seen without evidence of diverticulitis. A small hiatal hernia is seen Lymph nodes Retroperitoneal: Unremarkable. Pelvic: Unremarkable. Mesenteric: Unremarkable. Peritoneum: Normal. Abdominal wall: Unremarkable. Bones: Right hip arthroplasty and left femoral nail is seen. CT angiogram: The abdominal aortic contours appear intact without evidence of aneurysmal dilatation and/or dissection. No significant atherosclerosis is seen. The origins of the celiac axis, superior mesenteric, inferior mesenteric and bilateral renal arteries are patent. Incidentally noted, there are 2 left renal arteries. IMPRESSION: Diverticulosis without diverticulitis. Additional findings as above. ACT 112: Negative or not required by law. Electronically signed by: Alonso Pollard M.D. 07/29/2024 2:24 PM Chest X-Ray 07/29/24 11:05 XR chest 1V portable CLINICAL HISTORY: abd pain TECHNIQUE: Single frontal radiograph of the chest was obtained. Comparison: Comparison is made to chest radiograph 09/22/2023 FINDINGS: No lines and tubes are seen. The cardiomediastinal silhouette is normal. The lungs are clear. No evidence of pleural effusion or pneumothorax. IMPRESSION: No acute chest disease. ACT 112: Negative or not required by law. Electronically signed by: Alonso Pollard M.D. 07/29/2024 11:56 AM KUB X-Ray 07/31/24 10:54 Clinical history: Pain 2 views of the abdomen were obtained Findings: The bowel gas pattern appears unremarkable. No renal or ureteral calculi are seen. No foreign body is evident. There is a right hip replacement. There is internal fixation of the left femur. There are old healed pubic rami fractures bilaterally Impression: Unremarkable abdominal radiographs Electronically signed by Rojelio Hunt 07-31-2024 12:56 PM Pending Results Patient Have Any Pending Studies at Discharge: No Discharge Instructions Given to Patient (Per Discharging Provider) Ms. Padilla, You were hospitalized after worsening abdominal pain. Thankfully all of your scans did not show anything new to acutely be causing your pain. There is a chance that there is a psycho-somatic component to your pain. It is important to continue your antidepressants and follow up with your psych providers. - Recommend continue bowel regimen to prevent constipation - sennakot and miralax over the counter - breakfast supervisor ativan previously prescribed and use as needed. Continue to use Bentyl at home for pain. - Keep follow up with GI - Quitting smoking is likely to help your abdominal pain. You were given 10 units of lantus this morning, please only take 10 units tonight 08/01. Tomorrow, 08/02 you can resume your normal bedtime dosing. Activity: You can do normal everyday activities as your body allows. Take rest breaks if you feel tired. Do not overexert. Stop activity if you have pain, shortness of breath or feel dizzy. Follow-up appointments: Make an appointment with your primary care physician within one week of discharge. A copy of this summary will be sent to them. Every time you see your primary care physician, or any other doctor, bring your medication list, and a list of questions. CONTACT YOUR PRIMARY CARE PROVIDER if you experience any of the following: Shortness of breath or difficulty breathing Fevers or chills Feeling tired with normal activity or experiencing dizziness or fainting Difficulty following your treatment plan, or difficulty taking medications CALL 911 OR GO TO THE EMERGENCY DEPARTMENT if you experience any of the following: Severe abdominal pain or nausea/vomiting Severe chest pain, or chest pain that radiates (moves) to your jaw or arm Sudden, severe shortness of breath or difficulty breathing Thank you for allowing us to participate in your care. FARIBA Smith Total Time Total Time Spent Total Time Spent (In Minutes): Time spent day of discharge 35 minutes including direct patient care, medication reconciliation, documentation, review of labs and images, and coordination of care. Coding Level of Care Code 65010 INP/OBS DISCH >30 MIN Diagnoses Abdominal pain R10.84 Abdominal location: generalized Major depressive disorder, recurrent episode, severe with anxious distress F33.2 Insomnia G47.00 Insulin-requiring or dependent type II diabetes mellitus E11.9; Z79.4
== END 2024-08-01 14:56 | disposition home or self-care (01) | DRG 392 ==
LOC: ED 10:42 → EDINP 10:42 → SUATTDRO 16:46 → 3W 19:17 → SUATTDRO 07-31 10:51

== ENCOUNTER 2024-09-19 11:27 | Inpatient (IN) ==
[2024-09-19 12:06] LABS: Basophils # (auto) 0.01 K/uL (0.00-0.20); Basophils % (auto) 0.1 %; Hematocrit (blood only) 40.3 % (37.0-47.0); Hemoglobin 13.6 g/dl (12.0-16.0); Immature Granulocytes # (auto) 0.04 K/uL (0.01-0.20); Immature Granulocytes % (auto) 0.4 %; Lymphocytes # (auto) 0.87 K/uL (1.20-3.40); Lymphocytes % (auto) 8.6 %; Mean Corpuscular Hemoglobin 30.4 pg (25.0-34.0); Mean Corpuscular Hgb Conc 33.7 g/dL (32.0-36.0); Mean Corpuscular Volume 90.2 fL (80.0-100.0); Mean Platelet Volume 10.5 fL (9.4-12.4); Monocytes # (auto) 0.18 K/uL (0.11-0.59); Monocytes % (auto) 1.8 %; Neutrophils # (auto) 8.96 K/uL (1.40-6.50); Neutrophils % (auto) 89.1 %; Platelet Count 292 K/uL (130-400); RDW Coefficient of Variation 13.7 % (11.5-14.5); RDW Standard Deviation 45.1 fL (36.4-46.3); Red Blood Count 4.47 M/uL (4.20-5.40); White Blood Count 10.06 K/ul (4.8-10.8)
--- NOTE | 2024-09-19 12:09 | XRay Report ---
XR chest 1V portable CLINICAL HISTORY: Palpitations. COMPARISON STUDY: Chest radiograph July 29, 2024. FINDINGS: Lung volumes are normal. Lungs are clear. There is no pneumothorax or pleural effusion. Car diac size is normal. Mediastinal contours are normal. There is no evidence for pulmonary edema. Sever al old right rib fractures are incidentally noted. IMPRESSION: No acute cardiopulmonary findings. No change in appearance of the chest. ACT 112: Negative or not required by law. Electronically signed by: Sixto Hernandez M.D. 09/19/2024 12:07 PM
[2024-09-19 12:19] LABS: Appearance Urine Clear (Clear); Bilirubin Urine Negative (Negative); Blood Urine Negative (Negative); Color Urine Yellow; Glucose Urine UA 3+ (Negative); Ketones Urine 3+ (Negative); Leukocyte Esterase Urine Negative (Negative); Nitrite Urine Negative (Negative); Protein Urine Negative (Negative); Specific Gravity Urine 1.017 (1.000-1.030); Urobilinogen Urine Negative (Negative); pH Urine 5.5 (4.5-7.5)
[2024-09-19 12:33] LABS: Albumin Level 4.3 gm/dl (3.4-5.0); Bilirubin,Total 0.5 mg/dl (0.2-1.0); Calcium 9.8 mg/dl (8.6-10.3); Potassium 4.8 mmol/L (3.5-5.1)
[2024-09-19 12:50] LABS: Partial Thromboplastin Ratio 1.2; Partial Thromboplastin Time 31 Seconds (21-31); Prothrombin Time 10.4 Seconds (9.0-12.0)
[2024-09-19 12:59] LABS: Influenza A virus by PCR Negative (Neg); Influenza B virus by PCR Negative (Neg); RSV by PCR Negative (Neg); SARS CoV2 RNA(COVID-19) Ceph NEGATIVE (Negative)
[2024-09-19 13:03] LABS: Albumin Globulin Ratio 1.4 (0.9-2); BUN Creatinine Ratio 13.5 (10-20); Creatinine Clr Calc Pharmacy 53.7 ml/min; Total Protein 7.3 gm/dl (6.0-8.3)
[2024-09-19 13:16] LABS: D Dimer 3870 ug/L FEU (0-500); Magnesium 1.6 mg/dl (1.7-2.4)
[2024-09-19 13:25] LABS: Troponin I High Sensitivity 4.4 pg/ml (0-14)
[2024-09-19] MEDS ORDERED: GLUCAGON FOR INJ 1 MG VIAL SQ PRN (13:26)
[2024-09-19] MEDS ORDERED: DEXTROSE 50% 50 ML SYRINGE IV PRN (13:26)
[2024-09-19] MEDS ORDERED: GLUCOSE 40% GEL 15 GM TUBE PO PRN (13:26)
[2024-09-19] MEDS ORDERED: GLUCOSE 10 TAB/TUBE PO PRN (13:26)
[2024-09-19] MEDS: SODIUM CHLORIDE 0.9% 1,000 ML IV ONE (13:28)
[2024-09-19] MEDS ORDERED: INSULIN REGULAR 250 UNITS in SODIUM CHLORIDE 0.9% 247.5 ML IV SCH (13:30)
[2024-09-19] MEDS: ONDANSETRON INJ 2 MG/ML 2 ML VIAL IV STA (13:30)
[2024-09-19] MEDS: OPTIRAY 320 125ml IV ONE (13:48)
--- NOTE | 2024-09-19 14:03 | CT Scan Report ---
CT head/brain wo con CLINICAL HISTORY: difficulty ambulating. TECHNIQUE: Multiple axial CT images of the head were obtained without contrast. Sagittal and coronal reconstructions were done. A dose lowering technique was utilized adhering to the principles of ALARA . CT DOSE: 1052.79 mGy.cm COMPARISON: 09/22/2023 FINDINGS: No significant interval changes have occurred. Senescent atrophy and small vessel insuffici ency is redemonstrated. There is no intra-axial or extra-axial fluid collection, hemorrhage, or mass. There is no midline shift. The bone windows are negative. IMPRESSION: Stable exam as described. No acute intracranial process identified. ACT 112: Negative or not required by law. The above report was generated using voice recognition software. It may contain grammatical, syntax o r spelling errors. Electronically signed by: Marjorie Burnham M.D. 09/19/2024 2:02 PM
--- NOTE | 2024-09-19 14:05 | CT Scan Report ---
CT ANGIOGRAPHY OF THE CHEST, PULMONARY EMBOLUS PROTOCOL CLINICAL HISTORY: Shortness of breath. Tachycardia. Evaluate for pulmonary embolus. COMPARISON STUDY: Chest radiograph July 29, 2024. Chest radiograph performed earlier today. TECHNIQUE: Following IV administration of 120 mL of Optiray, helical axial images of the chest were o btained utilizing the pulmonary embolus protocol. Maximal intensity projections and sagittal and cor onal reformats were viewed on an independent 3D workstation. IV contrast was administered without co mplication. Automated exposure control was utilized for the study. A dose lowering technique was ut ilized adhering to the principles of ALARA. FINDINGS: No pulmonary emboli are identified. There is no thoracic aortic dissection. No enlarged ax illary, mediastinal or hilar lymph nodes are present. There is mild emphysema. There is no consolidat ion to suggest pneumonia. No suspicious pulmonary nodules are present. There is mild wall thickening and mucus plugging within the lower lobes. Old right-sided rib fractures are incidentally noted. Ther e are no acute rib fractures. There is a small hiatal hernia. Wall thickening of the distal esophagus is present. Old L1 compression fracture is incidentally noted. IMPRESSION: 1. No pulmonary emboli identified. 2. No acute intrathoracic findings. 3. Mild emphysema. 4. Small hiatal hernia. Distal esophageal wall thickening which may represent esophagitis. ACT 112: Negative or not required by law. Electronically signed by: Sixto Hernandez M.D. 09/19/2024 2:04 PM
[2024-09-19] MEDS: NSS + 20MEQ KCL 20 MEQ/1,000 ML BAG IV SCH (14:12)
[2024-09-19] MEDS: INSULIN REGULAR 250 UNITS in SODIUM CHLORIDE 0.9% 247.5 ML IV SCH (14:14)
[2024-09-19 14:24] LABS: Base Excess VBG -6.5 mEq/L; HCO3 VBG 21 mmol/L; Oxygen Saturation VBG < 60.0 %; PCO2 VBG 46 mmHg (38-50); PO2 VBG 34 mmHg; pH VBG 7.26 (7.36-7.41)
[2024-09-19 14:40] LABS: Phosphorus 3.4 mg/dl (2.5-4.9)
[2024-09-19 14:44] LABS: Estimated Average Glucose 197 mg/dl; Hemoglobin A1C 8.5 % (4.5-5.6)
[2024-09-19] MEDS: STAT IV Infusion **Titration per Protocol STA (15:11)
--- NOTE | 2024-09-19 15:52 | History & Physical Report ---
Date of Service September 19, 2024 Assessment & Plan (1) Insulin-requiring or dependent type II diabetes mellitus: Plan: Lana is a 69-year-old female with a Past medical history of poorly controlled type 1 diabetes last A1c 8.5%, chronic abdominal pain over several months, palpitations who presents with pseudohyponatremia, abdominal discomfort, and he was found to have a BSG greater than 400, anion gap acidosis and he was suspected to be in mild DKA. Patient has had intermittent chronic abdominal pain with hypoglycemia in the past, has an uninfected UA, has had multiple CTA/P scans in the preceding few months without acute finding and a nonacute abdomen on exam has been recommended for treatment of DKA. Abdominal CTA previously with diverticulosis without diverticulitis. No significant disease of the celiac axis, superior mesenteric, inferior mesenteric, and bilateral renal arteries was noted. Type II IDDM/HHS BSG 424 on admission no leukocytosis, no fever/chills, no evidence of infectious trigger on admission. Generally poor appetite with chronic abdominal pain Anion gap 16 Bicarb 19 VBG 7.2 / Presents with mild ketoacidosis. Treated with insulin gtt., fluid resuscitation BMP/mag/Phos every 4 hours Home insulin basal requirement of 18 units last A1c 8.5% - Received 1 L of fluid resuscitation in the ER. Potassium 4.8. Continued on NSS +20 KCl. When in glycemic target range can transition to D5 LR until gap closes/pH greater than 7.3 Zofran for nausea Suprapubic/chronic abdominal discomfort Suspect combination of functial/trigger point and DKA currenlty, ?Diabetic gastroparesis/neuropathy due to symptoms over several months with normal imaging EGD 01/2024: Schatzki ring dilated, grade B reflux esophagitis without bleeding. Gastritis. Was Heather B upper tonics 40 p.o. twice daily Several CTs in the preceding months without abnormality no signs of vascular occlusion or infectious etiology Less likely but DDx does include ischemic. Lactate has been added. If persistent pain out of proportion or persistently elevated lactate can repeat CTAA/P, will defer this today due to reassuring exam/recently normal CT/CTA of the abdomen, contrast load for CTAchest performed earlier or clinical suspicion UA is not infected appearing Bladder scan pending MDD with anxiety Continue fluoxetine Hypertension Continue aspirin, lisinopril temporarily held for severe volume contraction. Resume once euvolemic if creatinine remains at baseline Hyperlipidemia Continue statin GERD/history of gastritis Continue PPI DVT PPx: Lovenox Diet: Clears until pH/gap/bicarb normalized then advance to type II DM and transition to subcu insulin per protocol Disposition: PCU CODE STATUS: DNR/DNI discussed with patient at time of admission (2) Major depressive disorder, recurrent episode, severe with anxious distress: (3) Depression: History of Present Illness Primary Care Provider: Heather Kumar Schwartz is a 69-year-old female with a Past medical history of poorly controlled type 1 diabetes last A1c 8.5%, chronic abdominal pain over several months, palpitations who presents with pseudohyponatremia, abdominal discomfort, and he was found to have a BSG greater than 400, anion gap acidosis and he was suspected to be in mild DKA. Patient has had intermittent chronic abdominal pain with hypoglycemia in the past, has an uninfected UA, has had multiple CTA/P scans in the preceding few months without acute finding and a nonacute abdomen on exam has been recommended for treatment of DKA. Abdominal CTA previously with diverticulosis without diverticulitis. No significant disease of the celiac axis, superior mesenteric, inferior mesenteric, and bilateral renal arteries was noted. D-dimer was elevated, chest CTA for PE was normal Lana is seen at the bedside. She has had chronic intermittent abdominal pain for many months. She feels that this is similar and mostly in her mid low abdomen/suprapubic region. She has been peeing a lot but has no difficulty voiding/urinating. Denies fever chills or sweats. She feels very dehydrated and has been peeing much more than normal. Has not missed any doses of her insulin. She reports that she has had a colonoscopy and EGD and did not find a cause of her discomfort back in December just had some inflammation. Been hospitalized and had several scans for abdominal pain, expressed some frustration that has not found a cause of her discomfort. She does not think that she has been on Reglan in the past. Has had some intermittent improvement with muscle relaxants in the past.At last discharge she was referred to pain management for trigger point injections. Medical History: Reviewed Medications: Reviewed Surgical History: Reviewed Family history: Reviewed Allergies: Reviewed Social History: Reviewed Code Status: DNR/DNi, discussed w pt on admit Allergies Allergy/AdvReac Type Severity Reaction Status Date / Time empagliflozin AdvReac Mild yeast Unverified 09/19/24 15:34 [From Alana] infections Home Medications Medication Instructions Recorded Confirmed Type levothyroxine 112 mcg tablet 112 mcg PO DAILYBB 11/22/21 09/19/24 History (Euthyrox) aspirin 81 mg tablet,delayed 81 mg PO QAM 06/18/23 09/19/24 History release insulin aspart U-100 100 unit/mL 1 sliding scale dose subcut 09/04/23 09/19/24 Rx (3 mL) subcutaneous pen (Novolog USEASDIRECTD #15 mL FlexPen U-100 Insulin aspart) multivitamin with folic acid 400 1 tab PO DAILY #1 tab 09/11/23 09/19/24 Rx mcg tablet (Daily-Arleen (with folic acid)) cholecalciferol (vitamin D3) 25 25 mcg PO QAM 11/23/23 09/19/24 History mcg (1,000 unit) capsule lactobacillus combination no.9 4 4,000 mmu cells PO PM 11/23/23 09/19/24 History billion cell capsule (Adult 50 Plus Probiotic) insulin glargine 100 unit/mL (3 18 unit subcut HS 03/13/24 09/19/24 History mL) subcutaneous pen (Basaglar KwikPen U-100 Insulin) lisinopril 20 mg tablet 20 mg PO BID 03/13/24 09/19/24 History pravastatin 40 mg tablet 40 mg PO HS 03/14/24 09/19/24 History dicyclomine 20 mg tablet 20 mg PO QID PRN Abdominal Pain 07/29/24 09/19/24 History fluoxetine 20 mg capsule 60 mg PO DAILY 07/29/24 09/19/24 History hydroxyzine HCl 10 mg tablet 10 mg PO BID PRN Anxiety 07/29/24 09/19/24 History pantoprazole 40 mg tablet,delayed 40 mg PO QAM 07/29/24 09/19/24 History release lorazepam 0.5 mg tablet 0.5 mg PO Q6H PRN anxiety #30 tabs 08/01/24 09/19/24 Rx polyethylene glycol 3350 17 17 g PO DAILY PRN Constipation 09/19/24 09/19/24 History gram/dose oral powder (Miralax) Past Med/Surg History Problem List (Updated 09/06/24 @ 00:07 by Hernando Mead) Depression (Acute) Slurred speech (Acute) History of diverticulitis GERD (gastroesophageal reflux disease) Iron deficiency Acute hyponatremia (Acute) Nausea and vomiting Chronic hyponatremia Fall (Acute) Head injury (Acute) Laceration of scalp (Acute) Closed intertrochanteric fracture of left hip (Acute) Epigastric pain Tobacco use (Acute) Acute hyponatremia (Acute) Abdominal pain (Acute) Vertigo Dyslipidemia Dizziness Rotary nystagmus (Acute) Ataxia (Acute) Hypothyroidism (Chronic) Major depressive disorder, recurrent severe without psychotic features Tobacco use disorder Diarrhea Suicidal ideation (Acute) Hyperglycemia due to type 1 diabetes mellitus (Acute) Abdominal pain (Acute) HTN (hypertension) (Chronic) Medical History Suicidal ideation Overdose History of stroke History of suicidal ideation (2014) Hx of fracture of left hip (06/2023) surgery Hx of fall (06/2023) fx femure, head injury, scalp lac Chronic hyponatremia Nausea and vomiting Iron deficiency 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, "I don't walk like i did before" History of colon polyps Epigastric pain Hx of bronchitis (2017) tx with inhaler at the time, no issues since Hyperlipemia Hypertension Hypothyroidism History of stroke (2021) "minor" no deficits, no neurologist, treated at [facility] and [facility] Hx of major depression Hx of diverticulitis of colon Diverticulosis Diabetes mellitus IDDM Surgical History Hx of tonsillectomy Hx of esophagogastroduodenoscopy Hx of colonoscopy with polypectomy History of (1991) History of right hip replacement (2020) History of open reduction and internal fixation (ORIF) procedure (11/2020) right wrist History of open reduction and internal fixation (ORIF) procedure (06/2023) Left femur, due to fall Family History Brother Hypertension Social History Smoking Status: Current every day smoker Tobacco Type: Cigarettes Cigarettes Per Day: 1/2 PPD; Second Hand Exposure: No; Do You Dip or Chew Tobacco: No; Hx Alcohol Use: No Hx Substance Use: No Preferred Language: [place] Communication Ability: Effective 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 NAD. Cooperative. HEENT: Atraumatic, normocephalic. MM dry. Pulm: CTAB A&P. -wheezes, -rales, -rhonchi. Symmetrical chest rise. No increased work of breathing. No respiratory distress. Cardiac: RRR, -mrg. Radial pulses intact and symmetrical. Abdominal: Soft, nondistended, no rebound/guarding. Mild focal suprapubic TTP. Results & Data Results & Data Vital Signs (Past 12 Hours) Vital Signs Temp Pulse Pulse Resp BP BP Pulse Ox 09/19/24 14:37 94 H 20 165/90 H 95 09/19/24 12:23 75 18 146/79 H 93 09/19/24 12:19 82 09/19/24 11:58 82 20 94 09/19/24 11:58 94 09/19/24 11:30 36.2 C L 93 H 20 148/78 H 95 O2 Del Method 09/19/24 14:37 Room Air 09/19/24 12:23 Room Air 09/19/24 12:19 09/19/24 11:58 Room Air 09/19/24 11:58 Room Air 09/19/24 11:30 Room Air PG Care Time/CCT Total # of Minutes Spent Total Time Spent with Patient: Total time spent is greater than 50% in coordination of care (as documented) at patient's floor/unit and/or counseling patient: Coding Level of Care Code 60427 INT INP/OBS CARE 3/75MIN Diagnoses Insulin-requiring or dependent type II diabetes mellitus E11.9; Z79.4 Major depressive disorder, recurrent episode, severe with anxious distress F33.2 Depression F32.A Depression Type: unspecified (3) Depression Depression Type: unspecified Qualified Code(s): F32.A - Depression, unspecified
[2024-09-19] MEDS: LACTATED RINGER'S 1,000 ML IV ONE (16:32)
[2024-09-19] MEDS: MAGNESIUM SULFATE / D5W 1 GM/100 ML BAG IV ONE (16:32)
[2024-09-19] MEDS: HYDROmorphone INJ 0.5 MG/0.5 ML SYR IV PRN (17:06)
[2024-09-19] MEDS: ONDANSETRON INJ 2 MG/ML 2 ML VIAL IV PRN (17:06)
[2024-09-19] MEDS ORDERED: PENDING D5 1/2NS+20mEq KCL IVF SCH (18:21)
[2024-09-19 18:27] LABS: BUN Creatinine Ratio 13.2 (10-20); Calcium 8.7 mg/dl (8.6-10.3); Creatinine Clr Calc Pharmacy 70.3 ml/min; Magnesium 1.9 mg/dl (1.7-2.4); Phosphorus 2.3 mg/dl (2.5-4.9); Potassium 4.6 mmol/L (3.5-5.1)
--- NOTE | 2024-09-19 18:56 | Emergency Department Note ---
History of Present Illness General Chief complaint: Tachycardia Stated complaint: ABD PAIN, TACHYCARDIA Time Seen by Provider: 09/19/24 12:05 History of Present Illness Provider complaint: Abdominal pain palpitations Maximum Pain Intensity: 8 69-year-old insulin-dependent diabetic presents emergency department for abdominal pain and palpitations. Patient reports she has been having abdominal pain in her lower abdomen for the last 6 months. She states she is seen multiple GI doctors had multiple CAT scans and scopes and they have all been negative. She states her abdominal pain has become worse over the last 2 days. She also states over the last 2 days she had some palpitations and has been increasingly weak. No fevers. She reports nausea but no vomiting. No melena hematochezia. No hematuria or dysuria. Home Medications Medication Instructions Recorded Confirmed Type levothyroxine 112 mcg tablet 112 mcg PO DAILYBB 11/22/21 09/19/24 History (Euthyrox) aspirin 81 mg tablet,delayed 81 mg PO QAM 06/18/23 09/19/24 History release insulin aspart U-100 100 unit/mL 1 sliding scale dose subcut 09/04/23 09/19/24 Rx (3 mL) subcutaneous pen (Novolog USEASDIRECTD #15 mL FlexPen U-100 Insulin aspart) multivitamin with folic acid 400 1 tab PO DAILY #1 tab 09/11/23 09/19/24 Rx mcg tablet (Daily-Arleen (with folic acid)) cholecalciferol (vitamin D3) 25 25 mcg PO QAM 11/23/23 09/19/24 History mcg (1,000 unit) capsule lactobacillus combination no.9 4 4,000 mmu cells PO PM 11/23/23 09/19/24 History billion cell capsule (Adult 50 Plus Probiotic) insulin glargine 100 unit/mL (3 18 unit subcut HS 03/13/24 09/19/24 History mL) subcutaneous pen (Basaglar KwikPen U-100 Insulin) lisinopril 20 mg tablet 20 mg PO BID 03/13/24 09/19/24 History pravastatin 40 mg tablet 40 mg PO HS 03/14/24 09/19/24 History dicyclomine 20 mg tablet 20 mg PO QID PRN Abdominal Pain 07/29/24 09/19/24 History fluoxetine 20 mg capsule 60 mg PO DAILY 07/29/24 09/19/24 History hydroxyzine HCl 10 mg tablet 10 mg PO BID PRN Anxiety 07/29/24 09/19/24 History pantoprazole 40 mg tablet,delayed 40 mg PO QAM 07/29/24 09/19/24 History release lorazepam 0.5 mg tablet 0.5 mg PO Q6H PRN anxiety #30 tabs 08/01/24 09/19/24 Rx polyethylene glycol 3350 17 17 g PO DAILY PRN Constipation 09/19/24 09/19/24 History gram/dose oral powder (Miralax) Allergies Allergy/AdvReac Type Severity Reaction Status Date / Time empagliflozin AdvReac Mild yeast Unverified 09/19/24 15:34 [From Jardiance] infections Past Med/Surg History Problem List (Updated 09/19/24 @ 18:56 by Terell Tariq MD) DKA (diabetic ketoacidosis) (Acute) Depression (Acute) Slurred speech (Acute) History of diverticulitis GERD (gastroesophageal reflux disease) Iron deficiency Acute hyponatremia (Acute) Nausea and vomiting Chronic hyponatremia Fall (Acute) Head injury (Acute) Laceration of scalp (Acute) Closed intertrochanteric fracture of left hip (Acute) Epigastric pain Tobacco use (Acute) Acute hyponatremia (Acute) Abdominal pain (Acute) Vertigo Dyslipidemia Dizziness Rotary nystagmus (Acute) Ataxia (Acute) Hypothyroidism (Chronic) Major depressive disorder, recurrent severe without psychotic features Tobacco use disorder Diarrhea Suicidal ideation (Acute) Hyperglycemia due to type 1 diabetes mellitus (Acute) Abdominal pain (Acute) HTN (hypertension) (Chronic) Medical History Abdominal pain Insomnia Major depressive disorder, recurrent episode, severe with anxious distress Suicidal ideation Overdose History of stroke Insulin-requiring or dependent type II diabetes mellitus History of suicidal ideation (2014) Hx of fracture of left hip (06/2023) surgery Hx of fall (06/2023) fx femure, head injury, scalp lac Chronic hyponatremia Nausea and vomiting Iron deficiency 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, "I don't walk like i did before" History of colon polyps Epigastric pain Hx of bronchitis (2017) tx with inhaler at the time, no issues since Hyperlipemia Hypertension Hypothyroidism History of stroke (2021) "minor" no deficits, no neurologist, treated at [facility] and [facility] Hx of major depression Hx of diverticulitis of colon Diverticulosis Diabetes mellitus IDDM Surgical History Hx of tonsillectomy Hx of esophagogastroduodenoscopy Hx of colonoscopy with polypectomy History of (1991) History of right hip replacement (2020) History of open reduction and internal fixation (ORIF) procedure (11/2020) right wrist History of open reduction and internal fixation (ORIF) procedure (06/2023) Left femur, due to fall Family History Brother Hypertension Social History Smoking Status: Current every day smoker Tobacco Type: Cigarettes Cigarettes Per Day: 0-5; Second Hand Exposure: No; Do You Dip or Chew Tobacco: No; Hx Alcohol Use: No Hx Substance Use: No Preferred Language: Slovenian Communication Ability: Effective First Front Ventilator Required: No Beliefs That Will Affect Care: None marital status: / Current Living Situation: Alone current occupational status: retired How many Children do You have: 1 Feels Safe at Home: No Is there a partner from a previous relationship who is making you feel unsafe now?: No Safety Concerns: Afraid for Self Gender Identity: Female Assistive Devices: Cane, Glasses and Walker Physical Exam Vital Signs Vital Signs - 24 hr 09/19/24 11:30 09/19/24 11:58 09/19/24 11:58 Temperature 36.2 C L Temperature Source Temporal Artery Scan Pulse Rate 93 H Pulse Rate [Apical] 82 Pulse Rhythm [Apical] Regular Pulse Strength [Apical] Normal Respiratory Rate 20 20 Respiratory Effort / Characteristics Non-Labored Spontaneous Respiratory Depth Normal Respiratory Pattern Regular Blood Pressure 148/78 H Blood Pressure [Left Arm] Blood Pressure Mean 101 Blood Pressure Mean [Left Arm] Blood Pressure Position [Left Arm] Pulse Oximetry 95 94 94 Oxygen Delivery Method Room Air Room Air Room Air Sepsis Recent Fever Within 48 Hours No Sepsis New/Unexplained Change in Mental Status N/A Sepsis Action Taken by Nursing No Action Required 09/19/24 12:19 09/19/24 12:23 09/19/24 14:37 Temperature Temperature Source Pulse Rate 82 Pulse Rate [Apical] 75 94 H Pulse Rhythm [Apical] Regular Regular Pulse Strength [Apical] Normal Normal Respiratory Rate 18 20 Respiratory Effort / Characteristics Non-Labored Spontaneous Non-Labored Spontaneous Respiratory Depth Normal Normal Respiratory Pattern Regular Regular Blood Pressure Blood Pressure [Left Arm] 146/79 H 165/90 H Blood Pressure Mean Blood Pressure Mean [Left Arm] 101 115 Blood Pressure Position [Left Arm] Semi-fowlers Semi-fowlers Pulse Oximetry 93 95 Oxygen Delivery Method Room Air Room Air Sepsis Recent Fever Within 48 Hours Sepsis New/Unexplained Change in Mental Status Sepsis Action Taken by Nursing 09/19/24 16:07 Temperature Temperature Source Pulse Rate Pulse Rate [Apical] 81 Pulse Rhythm [Apical] Regular Pulse Strength [Apical] Normal Respiratory Rate 16 Respiratory Effort / Characteristics Non-Labored Respiratory Depth Normal Respiratory Pattern Regular Blood Pressure Blood Pressure [Left Arm] 162/94 H Blood Pressure Mean Blood Pressure Mean [Left Arm] 116 Blood Pressure Position [Left Arm] Lying Pulse Oximetry 95 Oxygen Delivery Method Room Air Sepsis Recent Fever Within 48 Hours Sepsis New/Unexplained Change in Mental Status Sepsis Action Taken by Nursing Physical Exam GENERAL: oriented to person, place, and time. appears well-developed and well- nourished. She does not appear distressed. HENT: Exam performed. -Head: Normocephalic and atraumatic. -Right Ear: External ear normal. No mastoid erythema -Left Ear: External ear normal. No mastoid erythema -Mouth/Throat: The oropharynx is clear and moist. No trismus in the jaw. No dental abscesses or uvula swelling. No oropharyngeal exudate or tonsillar abscesses. EYES: Conjunctivae and EOM are normal.Right eye exhibits no discharge. Left eye exhibits no discharge. No scleral icterus. NECK: Normal range of motion. Neck supple. No JVD present. No tracheal deviation and normal range of motion present. CV: Normal rate, regular rhythm, normal heart sounds and intact distal pulses. There is no peripheral edema. Palpable radial pulses bue. PULM/CHEST: Effort normal and breath sounds normal. No respiratory distress. No stridor. no wheezes.no rales. -Chest Wall: no tenderness to palpation ABD: The abdomen is soft. Bowel sounds are normal. no distension. No mass is present. There is no tenderness. There is no rebound, no guarding, no Silva's sign and no tenderness at McBurney's point. Rovsig negative MUSC/SKEL: Normal range of motion. There is no peripheral edema, tenderness or deformity. NEURO: Motor and sensation grossly intact. SKIN: Skin is warm and dry. not diaphoretic. PSYCH: normal mood and affect. Behavior is normal. Judgment and thought content normal. Course Course 1205: The patient was evaluated in room C12. A complete history and physical exam was performed Cardiac monitoring: An order was placed for continuous cardiac monitoring. The monitor shows a rate of 100 with sinus rhythm interpreted by ma 1335: Vital signs stable. Labs show an elevated D-dimer. CTA of the chest ordered for the patient. Labs also show a blood glucose greater than 450 with an anion gap of 16. Normal saline bolus ordered for the patient as well as normal saline with KCl 20 mill equivalents ordered for the patient. Patient to be started on insulin drip. 1510: Vital signs stable. Imaging is unremarkable. Patient will be admitted to the [facility] team for DKA. Administered Medications Hydromorphone HCl (Hydromorphone Inj 0.5 Mg/0.5 Ml Syr) 0.5 mg IV Q4H PRN PRN Reason: Moderate Pain (4,5,6) on NRS Stop: 10/03/24 16:22 Last Admin: 09/19/24 17:06 Dose: 0.5 mg Documented By: KAREN Potassium Chloride/Sodium Chloride (Normal Saline W/20 Meq Kcl) 20 meq in 1,000 mls @ 125 mls/hr IV .Q8H [facility] Stop: 09/20/24 13:29 Last Admin: 09/19/24 14:12 Dose: 125 mls/hr Documented By: MSG Insulin Human Regular 250 (units/ Sodium Chloride) 250 mls @ 0 mls/hr IV .Q0M SACHI; Protocol Stop: 10/19/24 13:29 Last Titration: 09/19/24 17:09 Dose: 0 unit/hr, 0 mls/hr Documented By: KAREN Co-signed By: ASHER Titration: 09/19/24 16:21 Dose: 0 unit/hr, 0 mls/hr Documented By: KAREN Co-signed By: BLANCHE Titration: 09/19/24 15:26 Dose: 4.6 unit/hr, 4.6 mls/hr Documented By: KAREN Co-signed By: ROLAND Admin: 09/19/24 14:14 Dose: 5.8 unit/hr, 5.8 mls/hr Documented By: MARGARITO Co-signed By: Ondansetron HCl (Ondansetron Inj 2 Mg/Ml 2 Ml Vial) 4 mg IV Q4H PRN PRN Reason: Nausea Stop: 10/19/24 16:17 Last Admin: 09/19/24 17:06 Dose: 4 mg Documented By: KAREN Discontinued Medications Sodium Chloride (Nss) 1,000 mls @ 999 mls/hr IV .Q1H1M ONE Stop: 09/19/24 14:20 Last Infusion: 09/19/24 14:47 Dose: Infused Documented By: Admin: 09/19/24 13:28 Dose: 999 mls/hr Documented By: MARGARITO Lactated Ringer's (Lr) 1,000 mls @ 999 mls/hr IV .Q1H1M ONE Stop: 09/19/24 17:18 Last Admin: 09/19/24 16:32 Dose: 999 mls/hr Documented By: KAREN Magnesium Sulfate/Dextrose (Magnesium Sulfate / D5w) 1 gm in 100 mls @ 50 mls/hr IV ONE ONE Stop: 09/19/24 18:21 Last Admin: 09/19/24 16:32 Dose: 50 mls/hr Documented By: KAREN Ioversol (Optiray 320 125ml) 120 ml IV ONCE ONE Stop: 09/19/24 13:49 Last Admin: 09/19/24 13:48 Dose: 120 ml Documented By: KEL Miscellaneous (Stat Iv Infusion Titration Per Protocol) 1 each N/A NOW STA Stop: 09/19/24 13:27 Last Admin: 09/19/24 15:11 Dose: Not Given Documented By: KAREN Ondansetron HCl (Ondansetron Inj 2 Mg/Ml 2 Ml Vial) 4 mg IV NOW STA Stop: 09/19/24 13:27 Last Admin: 09/19/24 13:30 Dose: 4 mg Documented By: MARGARITO Critical Care Time Critical Care Time: Yes Total Critical Care Time: 55 I have personally spent greater than 55 minutes of critical care time in the direct management of this patient. This includes bedside care, interpretation of diagnostic studies, and testing, discussion with consultants, patient, and family members, and other required patient management activities. This 55 minutes is in excess of all separately billable procedures. Medical Decision Making Medical Records Attestation: I reviewed the patient's medical records. External medical records reviewed. Patient had a negative CT of the abdomen pelvis 4 weeks ago. Laboratory Data Attestation: I reviewed the patient's lab results. 09/19/24 11:50 09/19/24 17:38 Lab Results 09/19/24 09/19/24 09/19/24 Range/Units 11:40 11:50 14:13 WBC 10.06 (4.8-10.8) K/ul RBC 4.47 (4.20-5.40) M/uL Hgb 13.6 (12.0-16.0) g/dl Hct 40.3 (37.0-47.0) % MCV 90.2 (80.0-100.0) fL MCH 30.4 (25.0-34.0) pg MCHC 33.7 (32.0-36.0) g/dL RDW Std Deviation 45.1 (36.4-46.3) fL RDW Coeff of Cindy 13.7 (11.5-14.5) % Plt Count 292 (130-400) K/uL MPV 10.5 (9.4-12.4) fL Immature Gran % (Auto) 0.4 % Neut % (Auto) 89.1 % Lymph % (Auto) 8.6 % Turner % (Auto) 1.8 % Eos % (Auto) 0.0 % Baso % (Auto) 0.1 % Neut # (Auto) 8.96 H (1.40-6.50) K/uL Lymph # (Auto) 0.87 L (1.20-3.40) K/uL Turner # (Auto) 0.18 (0.11-0.59) K/uL Eos # (Auto) 0.00 (0.00-0.50) K/uL Baso # (Auto) 0.01 (0.00-0.20) K/uL Immature Gran # (Auto) 0.04 (0.01-0.20) K/uL PT 10.4 (9.0-12.0) Seconds INR 1.0 (0.9-1.1) APTT 31 (21-31) Seconds PTT Ratio 1.2 D-Dimer 3870 H* (0-500) ug/L FEU VBG pH 7.26 L (7.36-7.41) VBG pCO2 46 (38-50) mmHg VBG pO2 34 mmHg VBG HCO3 21 mmol/L VBG O2 Saturation < 60.0 % VBG Base Excess -6.5 mEq/L Sodium 130 L (136-145) mmol/L Potassium 4.8 (3.5-5.1) mmol/L Chloride 95 L (98-107) mmol/L Carbon Dioxide 19 L (21-32) mmol/L Anion Gap 16 H (3-11) BUN 12 (6-23) mg/dl Creatinine 0.89 (0.6-1.2) mg/dl Est Cr Clr Drug Dosing 53.7 ml/min eGFR 70.14 BUN/Creatinine Ratio 13.5 (10-20) Glucose 424 H* (70-99(Fasting)) mg/dl POC Glucose (70-99) mg/dl Estimat Average Glucose 197 mg/dl Hemoglobin A1c 8.5 H (4.5-5.6) % Calcium 9.8 (8.6-10.3) mg/dl Phosphorus 3.4 (2.5-4.9) mg/dl Magnesium 1.6 L (1.7-2.4) mg/dl Total Bilirubin 0.5 (0.2-1.0) mg/dl AST 14 (13-39) U/L ALT 17 (7-52) U/L Alkaline Phosphatase 88 (34-104) U/L Troponin I High Sens 4.4 (0-14) pg/ml Total Protein 7.3 (6.0-8.3) gm/dl Albumin 4.3 (3.4-5.0) gm/dl Globulin 3.0 (2.5-4.0) gm/dl Albumin/Globulin Ratio 1.4 (0.9-2) Lipase 6 L (11-82) U/L Urine Color Yellow Urine Appearance Clear (Clear) Urine pH 5.5 (4.5-7.5) Ur Specific [place] 1.017 (1.000-1.030) Urine Protein Negative (Negative) Urine Glucose (UA) 3+ H (Negative) Urine Ketones 3+ H (Negative) Urine Blood Negative (Negative) Urine Nitrite Negative (Negative) Urine Bilirubin Negative (Negative) Urine Urobilinogen Negative (Negative) Ur Leukocyte Esterase Negative (Negative) SARS-CoV-2 (PCR) NEGATIVE (Negative) Influenza Type A (PCR) Negative (Neg) Influenza Type B (PCR) Negative (Neg) RSV (RT-PCR) Negative (Neg) 09/19/24 09/19/24 Range/Units 15:22 16:15 WBC (4.8-10.8) K/ul RBC (4.20-5.40) M/uL Hgb (12.0-16.0) g/dl Hct (37.0-47.0) % MCV (80.0-100.0) fL MCH (25.0-34.0) pg MCHC (32.0-36.0) g/dL RDW Std Deviation (36.4-46.3) fL RDW Coeff of Cindy (11.5-14.5) % Plt Count (130-400) K/uL MPV (9.4-12.4) fL Immature Gran % (Auto) % Neut % (Auto) % Lymph % (Auto) % Turner % (Auto) % Eos % (Auto) % Baso % (Auto) % Neut # (Auto) (1.40-6.50) K/uL Lymph # (Auto) (1.20-3.40) K/uL Turner # (Auto) (0.11-0.59) K/uL Eos # (Auto) (0.00-0.50) K/uL Baso # (Auto) (0.00-0.20) K/uL Immature Gran # (Auto) (0.01-0.20) K/uL PT (9.0-12.0) Seconds INR (0.9-1.1) APTT (21-31) Seconds PTT Ratio D-Dimer (0-500) ug/L FEU VBG pH (7.36-7.41) VBG pCO2 (38-50) mmHg VBG pO2 mmHg VBG HCO3 mmol/L VBG O2 Saturation % VBG Base Excess mEq/L Sodium (136-145) mmol/L Potassium (3.5-5.1) mmol/L Chloride (98-107) mmol/L Carbon Dioxide (21-32) mmol/L Anion Gap (3-11) BUN (6-23) mg/dl Creatinine (0.6-1.2) mg/dl Est Cr Clr Drug Dosing ml/min eGFR BUN/Creatinine Ratio (10-20) Glucose (70-99(Fasting)) mg/dl POC Glucose 300 H 190 H (70-99) mg/dl Estimat Average Glucose mg/dl Hemoglobin A1c (4.5-5.6) % Calcium (8.6-10.3) mg/dl Phosphorus (2.5-4.9) mg/dl Magnesium (1.7-2.4) mg/dl Total Bilirubin (0.2-1.0) mg/dl AST (13-39) U/L ALT (7-52) U/L Alkaline Phosphatase (34-104) U/L Troponin I High Sens (0-14) pg/ml Total Protein (6.0-8.3) gm/dl Albumin (3.4-5.0) gm/dl Globulin (2.5-4.0) gm/dl Albumin/Globulin Ratio (0.9-2) Lipase (11-82) U/L Urine Color Urine Appearance (Clear) Urine pH (4.5-7.5) Ur Specific [place] (1.000-1.030) Urine Protein (Negative) Urine Glucose (UA) (Negative) Urine Ketones (Negative) Urine Blood (Negative) Urine Nitrite (Negative) Urine Bilirubin (Negative) Urine Urobilinogen (Negative) Ur Leukocyte Esterase (Negative) SARS-CoV-2 (PCR) (Negative) Influenza Type A (PCR) (Neg) Influenza Type B (PCR) (Neg) RSV (RT-PCR) (Neg) Imaging Data Attestation: I personally reviewed and interpreted this imaging study as follows: My Impression: Chest x-ray negative. Airway clear. No pneumothorax. No consolidation. No cardiomegaly or cephalization.. No free air under the diaphragm. No fractures of the skeletal structures. Radiologist's Impression: Chest X-Ray 09/19/24 11:46 XR chest 1V portable CLINICAL HISTORY: Palpitations. COMPARISON STUDY: Chest radiograph July 29, 2024. FINDINGS: Lung volumes are normal. Lungs are clear. There is no pneumothorax or pleural effusion. Cardiac size is normal. Mediastinal contours are normal. There is no evidence for pulmonary edema. Several old right rib fractures are incidentally noted. IMPRESSION: No acute cardiopulmonary findings. No change in appearance of the chest. ACT 112: Negative or not required by law. Electronically signed by: Sixto Hernandez M.D. 09/19/2024 12:[address] 09/19/24 12:39 CT head/brain wo con CLINICAL HISTORY: difficulty ambulating. TECHNIQUE: Multiple axial CT images of the head were obtained without contrast. Sagittal and coronal reconstructions were done. A dose lowering technique was utilized adhering to the principles of ALARA. CT DOSE: 1052.79 mGy.cm COMPARISON: 09/22/2023 FINDINGS: No significant interval changes have occurred. Senescent atrophy and small vessel insufficiency is redemonstrated. There is no intra-axial or extra- axial fluid collection, hemorrhage, or mass. There is no midline shift. The bone windows are negative. IMPRESSION: Stable exam as described. No acute intracranial process identified. ACT 112: Negative or not required by law. The above report was generated using voice recognition software. It may contain grammatical, syntax or spelling errors. Electronically signed by: Marjorie Burnham M.D. 09/19/2024 2:02 PM Chest CTA 09/19/24 13:15 CT ANGIOGRAPHY OF THE CHEST, PULMONARY EMBOLUS PROTOCOL CLINICAL HISTORY: Shortness of breath. Tachycardia. Evaluate for pulmonary embolus. COMPARISON STUDY: Chest radiograph July 29, 2024. Chest radiograph performed earlier today. TECHNIQUE: Following IV administration of 120 mL of Optiray, helical axial images of the chest were obtained utilizing the pulmonary embolus protocol. Maximal intensity projections and sagittal and coronal reformats were viewed on an independent 3D workstation. IV contrast was administered without complication. Automated exposure control was utilized for the study. A dose lowering technique was utilized adhering to the principles of ALARA. FINDINGS: No pulmonary emboli are identified. There is no thoracic aortic dissection. No enlarged axillary, mediastinal or hilar lymph nodes are present. There is mild emphysema. There is no consolidation to suggest pneumonia. No suspicious pulmonary nodules are present. There is mild wall thickening and mucus plugging within the lower lobes. Old right-sided rib fractures are incidentally noted. There are no acute rib fractures. There is a small hiatal hernia. Wall thickening of the distal esophagus is present. Old L1 compression fracture is incidentally noted. IMPRESSION: 1. No pulmonary emboli identified. 2. No acute intrathoracic findings. 3. Mild emphysema. 4. Small hiatal hernia. Distal esophageal wall thickening which may represent esophagitis. ACT 112: Negative or not required by law. Electronically signed by: Sixto Hernandez M.D. 09/19/2024 2:04 PM ECG Data Attestation: I personally reviewed and interpreted this ECG as follows: Rate (beats per minute): 96 Rhythm: + normal sinus ECG Intervals/blocks: + Normal QRS, + Normal TX and + Normal QT-c ECG ST segments: + T-wave inversions (Lead aVL only) [facility] Narrative 1205: The patient was evaluated in room C12. A complete history and physical exam was performed Cardiac monitoring: An order was placed for continuous cardiac monitoring. The monitor shows a rate of 100 with sinus rhythm interpreted by ma 1335: Vital signs stable. Labs show an elevated D-dimer. CTA of the chest ordered for the patient. Labs also show a blood glucose greater than 450 with an anion gap of 16. Normal saline bolus ordered for the patient as well as normal saline with KCl 20 mill equivalents ordered for the patient. Patient to be started on insulin drip. 1510: Vital signs stable. Imaging is unremarkable. Patient will be admitted to the [facility] team for DKA. Impression & Plan DKA (diabetic ketoacidosis) Discharge Plan Visit Data Chief Complaint: Tachycardia Stated Complaint: ABD PAIN, TACHYCARDIA ED Provider: Terell Tariq Discharge Problem: DKA (diabetic ketoacidosis) Patient Disposition: Admitted As Inpatient Discharge Instructions Interventions: ED Discharge Assessment Last Done: 09/19/24 17:58
[2024-09-19] MEDS: INSULIN ASPART PER UNIT CHARGE SC SCH ×2 (19:14→22:22)
[2024-09-19] MEDS ORDERED: PHARMACY GLYCEMIC MGMT CONSULT PRN (19:43)
[2024-09-19] MEDS: PRAVASTATIN SOD 40 MG TAB PO SCH (21:01)
[2024-09-19] MEDS: ENOXAPARIN INJ 40 MG/0.4 ML SYR SQ SCH (21:01)
[2024-09-19] MEDS: LANTUS PER UNIT CHARGE SC SCH (22:22)
[2024-09-19] MEDS: D5W AND 1/2NSS + 20MEQ KCL 20 MEQ/1,000 ML BAG IV SCH (22:32)
[2024-09-19] MEDS: LORazepam 0.5 MG TAB PO PRN (23:36)
[2024-09-19 23:57] LABS: Calcium 8.7 mg/dl (8.6-10.3); Magnesium 1.7 mg/dl (1.7-2.4); Phosphorus 2.4 mg/dl (2.5-4.9); Potassium 5.2 mmol/L (3.5-5.1)
[2024-09-20] MEDS: MAGNESIUM SULFATE / D5W 1 GM/100 ML BAG IV ONE (01:13)
[2024-09-20] MEDS: LACTATED RINGER'S 1,000 ML IV SCH (01:13)
[2024-09-20] MEDS: INSULIN ASPART PER UNIT CHARGE SC STA (01:17)
[2024-09-20] MEDS ORDERED: INSULIN ASPART PER UNIT CHARGE SC SCH ×2 (02:00→03:00)
[2024-09-20] MEDS: INSULIN ASPART PER UNIT CHARGE SC SCH ×2 (03:45→07:38)
[2024-09-20 03:59] LABS: BUN Creatinine Ratio 10.8 (10-20); Creatinine Clr Calc Pharmacy 57.6 ml/min; Magnesium 2.3 mg/dl (1.7-2.4); Phosphorus 1.9 mg/dl (2.5-4.9); Potassium 4.3 mmol/L (3.5-5.1)
[2024-09-20] MEDS ORDERED: POTASSIUM PHOS 3 MMOL/1 ML INFUSION IV STA (04:18)
[2024-09-20] MEDS: POTASSIUM PHOSPHATE 15 MMOL in SODIUM CHLORIDE 0.9% 250 ML IV ONE (05:04)
[2024-09-20] MEDS: LEVOTHYROXINE SODIUM 112 MCG TABLET PO SCH (05:05)
[2024-09-20] MEDS: CARBOHYDRATES FOR HYPOGLYCEMIA PO PRN (07:05)
[2024-09-20] MEDS: HYDROmorphone INJ 1 MG/ML SYRINGE IV PRN (07:36)
[2024-09-20 07:50] LABS: Basophils # (auto) 0.02 K/uL (0.00-0.20); Basophils % (auto) 0.2 %; Eosinophils # (auto) 0.04 K/uL (0.00-0.50); Eosinophils % (auto) 0.4 %; Hematocrit (blood only) 37.6 % (37.0-47.0); Hemoglobin 12.8 g/dl (12.0-16.0); Immature Granulocytes # (auto) 0.04 K/uL (0.01-0.20); Immature Granulocytes % (auto) 0.4 %; Lymphocytes # (auto) 2.19 K/uL (1.20-3.40); Lymphocytes % (auto) 20.2 %; Mean Corpuscular Hemoglobin 31.2 pg (25.0-34.0); Mean Corpuscular Volume 91.7 fL (80.0-100.0); Mean Platelet Volume 10.3 fL (9.4-12.4); Monocytes # (auto) 0.69 K/uL (0.11-0.59); Monocytes % (auto) 6.4 %; Neutrophils # (auto) 7.84 K/uL (1.40-6.50); Neutrophils % (auto) 72.4 %; Platelet Count 275 K/uL (130-400); RDW Coefficient of Variation 13.9 % (11.5-14.5); RDW Standard Deviation 47.3 fL (36.4-46.3); White Blood Count 10.82 K/ul (4.8-10.8)
[2024-09-20 08:06] LABS: BUN Creatinine Ratio 11.1 (10-20); Calcium 8.9 mg/dl (8.6-10.3); Creatinine Clr Calc Pharmacy 66.4 ml/min; Phosphorus 4.1 mg/dl (2.5-4.9); Potassium 4.6 mmol/L (3.5-5.1)
[2024-09-20] MEDS: MULTIVITAMIN TAB PO SCH (09:25)
[2024-09-20] MEDS: FLUoxetine HCL 20 MG CAP PO SCH (09:25)
[2024-09-20] MEDS: CHOLECALCIFEROL 25 MCG (1000 UNITS) TAB PO SCH (09:25)
[2024-09-20] MEDS: PANTOprazole 40 MG TAB PO SCH (09:25)
[2024-09-20] MEDS: ASPIRIN 81 MG ECTAB PO SCH (09:25)
--- NOTE | 2024-09-20 11:26 | Electrocardiogram Report ---
Test Reason : Blood Pressure : */* mmHG Vent. Rate : 96 BPM Atrial Rate : 96 BPM P-R Int : 154 ms QRS Dur : 90 ms QT Int : 382 ms P-R-T Axes : 59 -36 84 degrees QTcB Int : 482 ms Normal sinus rhythm Left axis deviation Poor R wave progression, consider anterior MA vs. lead placement vs. LVH Abnormal ECG When compared with ECG of 29-Jul-2024 11:08, No significant change was found Confirmed by William Esqueda ([id number]) on 09/20/2024 11:25:55 AM Referred By: REFERRED SELF Confirmed By: William Esqueda
--- NOTE | 2024-09-20 12:04 | Pharmacy Report ---
Pharmacy Glycemic Short Note 2 - Date of Service September 20, 2024 - Glycemic Short BSG Results (Last 24 hours): 09/19/24 09/19/24 09/19/24 11:50 15:22 16:15 Glucose 424 H* POC Glucose 300 H 190 H 09/19/24 09/19/24 09/19/24 16:59 17:38 18:23 Glucose 152 H POC Glucose 141 H 179 H 09/19/24 09/19/24 09/19/24 19:27 20:31 22:12 Glucose POC Glucose 244 H 243 H 272 H 09/19/24 09/20/24 09/20/24 23:25 01:06 03:13 Glucose 288 H 139 H POC Glucose 233 H 09/20/24 09/20/24 09/20/24 07:02 07:04 07:22 Glucose 64 L POC Glucose 53 L* 52 L* 62 L* 09/20/24 09/20/24 07:42 11:12 Glucose POC Glucose 92 123 H OUTPATIENT ANTIDIABETIC REGIMEN: * Lantus 18 units daily, Novolog SSI ASSESSMENT: * 69 year old female admitted with abdominal discomfort, BSGs >400 on arrival - concerns for mild DKA. Started insulin infusion per DKA protocol, only on infusion x 2-3 hours then discontinued. Received Lantus 10 units x 1 dose last evening to help with drip transition. BSGs however falling overnight, 50s this AM - treated per hypoglycemia protocol. Did receive 8 units of correctional insulin overnight since BSGs >200s. * Held AM basal this AM for hypoglycemia - will have scale for basal insulin at HS time. No PO intake noted today yet. * Had nurse confirm with patient that she is a type 2 diabetic not type 1 diabetic as there is documentation in chart of both PLAN FOR INPATIENT GLYCEMIC CONTROL: * Hold outpatient oral diabetes medications * Basal insulin * Lantus 5-7 units HS * Bolus insulin * NovoLog per scale ACHS or Q6hrs while NPO * Goal Range: Low 120 mg/dL - High 160 mg/dL * Correction Factor: 40 mg/dL/unit * Nutritional / Prandial insulin per carb ratio of 1 unit per 20 grams CHO consumed
--- NOTE | 2024-09-20 16:30 | Hospitalist Progress Note ---
Date of Service September 20, 2024 Assessment & Plan (1) Insulin-requiring or dependent type II diabetes mellitus: Plan: Lana is a 69-year-old female with a Past medical history of poorly controlled type 2 diabetes last A1c 8.5%, chronic abdominal pain over several months, palpitations who presents with pseudohyponatremia, abdominal discomfort, and he was found to have a BSG greater than 400, anion gap acidosis and he was suspected to be in mild DKA. Patient has had intermittent chronic abdominal pain with hypoglycemia in the past, has an uninfected UA, has had multiple CTA/P scans in the preceding few months without acute finding and a nonacute abdomen on exam has been recommended for treatment of DKA. Abdominal CTA previously with diverticulosis without diverticulitis. No significant disease of the celiac axis, superior mesenteric, inferior mesenteric, and bilateral renal arteries was noted. Type II IDDM/HHS -CBC w/ mild leukocytosis of 10.82. -BMP shows Anion gap 6, electrolytes/renal function stable. -treated w/ insulin gtt, discontinued 09/19 and placed on Novolog. -pharmacy following to aide w/ glycemic management. Suprapubic/chronic abdominal discomfort -Patient w/ negative workup in past including CTAP, Abdomen CTA, KUB, EGD/CN -Gastric emptying study not yet to be completed but cannot completed until earliest 09/27 if patient remains inpatient. -consult pain management, appreciate recommendations. -suspect pain is secondary to gastroparesis vs functional abdominal pain vs neuropathy vs pain/attention seeking -UA negative -Pain control w/ Bentyl and Dilaudid Chronic conditions: Mental health: Fluoxetine HTN: ASA, Lisinopril HLD: statin GERD: PPI DVT PPx: Lovenox CODE STATUS: DNR/DNI discussed with patient at time of admission If patient's BG remains stable overnight, could consider downgrading to med/surg in AM (2) Major depressive disorder, recurrent episode, severe with anxious distress: (3) Depression: Admission and Anticipated Discharge Date Admission Date: September 19, 2024 Subjective Patient seen and examined this morning. patient w/ complaints of abdominal pain this morning. She reports that she has had abdominal pain for quite some time w/ unknown etiology. patient reports she did not follow up with pain management after her last discharge because she "did not want to be on pain medication". Patient reports the only thing that helps her pain is IV narcotics. Physical Exam Constitutional: WD/WN, vitals as above Eyes: PERRL, conjunctivae normal, anicteric sclerae Respiratory: normal respiratory effort, lungs clear to auscultation Cardiovascular: RRR, no murmur, no edema Gastrointestinal (Abdomen): +BS, generalized tenderness to palpation . Psychiatric: A+Ox3, euthymic affect Results & Data Results & Data Vital Signs (Past 12 Hours) Vital Signs Temp Pulse Resp BP Pulse Ox O2 Del Method 09/20/24 15:28 37.0 C 70 18 160/78 H 95 Room Air 09/20/24 10:49 37.0 C 67 18 161/81 H 91 Room Air 09/20/24 07:05 36.9 C 73 18 145/71 H 93 Room Air PG Care Time/CCT Total # of Minutes Spent Total Time Spent with Patient: Total time spent is greater than 50% in coordination of care (as documented) at patient's floor/unit and/or counseling patient: Coding Level of Care Code 92803 SUB INP/OBS CARE 3/50MIN Diagnoses Insulin-requiring or dependent type II diabetes mellitus E11.9; Z79.4 Major depressive disorder, recurrent episode, severe with anxious distress F33.2 Depression F32.A Depression Type: unspecified (3) Depression Depression Type: unspecified Qualified Code(s): F32.A - Depression, unspecified
[2024-09-20] MEDS: LANTUS PER UNIT CHARGE SC SCH (20:20)
[2024-09-20] MEDS: lisinopril 20 MG TAB PO SCH (20:26)
[2024-09-21 07:36] LABS: Basophils # (auto) 0.02 K/uL (0.00-0.20); Basophils % (auto) 0.2 %; Eosinophils # (auto) 0.09 K/uL (0.00-0.50); Eosinophils % (auto) 1.1 %; Hematocrit (blood only) 36.5 % (37.0-47.0); Hemoglobin 12.3 g/dl (12.0-16.0); Immature Granulocytes # (auto) 0.03 K/uL (0.01-0.20); Immature Granulocytes % (auto) 0.4 %; Lymphocytes % (auto) 20.2 %; Mean Corpuscular Hemoglobin 30.5 pg (25.0-34.0); Mean Corpuscular Hgb Conc 33.7 g/dL (32.0-36.0); Mean Corpuscular Volume 90.6 fL (80.0-100.0); Mean Platelet Volume 10.6 fL (9.4-12.4); Monocytes # (auto) 0.48 K/uL (0.11-0.59); Monocytes % (auto) 5.7 %; Neutrophils # (auto) 6.11 K/uL (1.40-6.50); Neutrophils % (auto) 72.4 %; Platelet Count 232 K/uL (130-400); RDW Coefficient of Variation 13.6 % (11.5-14.5); RDW Standard Deviation 45.1 fL (36.4-46.3); Red Blood Count 4.03 M/uL (4.20-5.40); White Blood Count 8.43 K/ul (4.8-10.8)
[2024-09-21 07:48] LABS: Calcium 8.8 mg/dl (8.6-10.3); Creatinine Clr Calc Pharmacy 78.1 ml/min; Potassium 4.2 mmol/L (3.5-5.1)
[2024-09-21 08:03] LABS: Thyroid Stimulating Hormone 3.773 uIu/ml (0.300-4.500)
--- NOTE | 2024-09-21 08:48 | Pain Management Consultation ---
Date of Consultation September 21, 2024 Assessment & Plan (1) Chronic abdominal pain: (2) Abdominal wall pain: (3) Diabetes mellitus: Plan 1. Patient with right lower quadrant and suprapubic abdominal pain of chronic duration of suspected abdominal wall etiology/myofascial given extensive GI evaluation without abnormal findings. Patient has nothing to suggest an ilioinguinal or genitofemoral neuralgia. She also has nothing to suggest a thoracic or lumbar radicular pattern to her pain complaints. Recommend a trial of abdominal wall trigger point injections at today's visit and patient was agreeable. Refer to procedure note below. 2. Potentially consider a trial of gabapentin versus baclofen moving forward pending response to above 3. Further recommendations pending response to abdominal wall trigger point injections completed at today's visit TRIGGER POINT INJECTION Diagnosis: Myofascial pain with spasm, chronic abdominal pain, abdominal wall pain Medications Used: Ropivacaine 0.5% 7 ml Kenalog 1 ml (40 mg/1ml) Ketorolac 2 ml (30 mg/1ml) Side/Level injected: Right lower quadrant and suprapubic abdomen x 7 (internal oblique, external oblique and rectus abdominis) Prior to starting, the Patients diagnosis and the procedure were reviewed with the patient in detail. Possible risks and complications including infection, bleeding, damage to surrounding structures and increased pain were discussed. Alternative therapies were also reviewed. Patients questions were answered and they agreed to proceed. Informed consent was obtained. Allergies and medication list was reviewed. The patient was brought to the procedure room and placed in prone position. Immediately prior to starting the procedure, a ``time out was conducted with the staff and the patient where the patient was identified, proposed procedure was verified, consent was reviewed and the proper site for the planned procedure was identified. Patient was not given any intravenous sedation and constant verbal contact was maintained throughout the procedure. On examination, no signs of skin breakdown or infection were noted at the injection site. The site was cleansed with ChloraPrep. After the application of either chloraprep, duraprep, and/or betadine (depending on patient's allergy status), three minutes time elapsed prior to the start of the procedure to reduce risk of fire. Palpation over the site produced patients typical pain. Using an 1.5 inch 25-gauge needle, the above muscles were injected in similar fashion after negative aspiration for blood with 1-1.5 mL of a combination of 7 mL of 0.5% ropivacaine-MPF containing 40 mg of Kenalog (1 ml) and 60 mg of ketorolac (2 ml) without complication. Needle was withdrawn and hemostasis noted. Band-Aid was applied where needed. Patient tolerated the procedure uneventfully without complications. Patient was discharged home with standard discharge instructions. History of Present Illness Reason for Consultation: Chronic lower quadrant abdominal pain Requesting Physician: Giovana Krishnan PA-C Attending Physician: João Snow History of Present Illness Mrs. Dickens is a 69-year-old white female who was admitted due to chronic right lower quadrant and suprapubic region pain which has been ongoing over the past 6-7 months in duration. Patient has past medical history significant for poorly controlled type 1 insulin-dependent diabetes mellitus, palpitations, chronic abdominal pain, depression history of ORIF of left femur from fall and major depressive disorder. She reported onset of her abdominal pain approximately 6-7 months which she describes as intermittent but chronic in duration with episodes of sharp and crampy pain predominate localized to the right lower quadrant and suprapubic region. She denies exacerbation of her pain with dietary intake, bowel movements or urination. She denies alleviation of pain with any known activities. She has had extensive GI evaluation with multiple imaging studies and colonoscopy/upper endoscopy with out obvious findings contributing to her right lower quadrant pain complaint. She denies any thoracic or lumbar back pain or radicular pattern to her pain complaints. Patient does report nighttime awakenings due to the pain and occasional interference of sleep quality and quantity. Patient reports relief of her pain with IV hydromorphone provided upon this admission. She has been treated with multiple antispasmodics in the outpatient setting currently with Bentyl which she reports provides minimal benefit. She denies pain radiating to the vaginal or perineal region. She denies any lower extremity radicular pattern to her pain. She denies diarrhea or constipation. She has no prior history of surgery to the right lower quadrant. Patient has no further constitutional complaints. Plan of care discussed with Dr. Tiffani Honr. Pain Assessment Full Body Front + Back: 2 1. Right lower quadrant/suprapubic location Pain scale - at its best (0-10): 0 Pain scale - at its worst (0-10): 8 Allergies Allergy/AdvReac Type Severity Reaction Status Date / Time empagliflozin AdvReac Mild yeast Unverified 09/19/24 15:34 [From Jardiance] infections Home Medications Medication Instructions Recorded Confirmed Type levothyroxine 112 mcg tablet 112 mcg PO DAILYBB 11/22/21 09/19/24 History (Euthyrox) aspirin 81 mg tablet,delayed 81 mg PO QAM 06/18/23 09/19/24 History release insulin aspart U-100 100 unit/mL 1 sliding scale dose subcut 09/04/23 09/19/24 Rx (3 mL) subcutaneous pen (Novolog USEASDIRECTD #15 mL FlexPen U-100 Insulin aspart) multivitamin with folic acid 400 1 tab PO DAILY #1 tab 09/11/23 09/19/24 Rx mcg tablet (Daily-Arleen (with folic acid)) cholecalciferol (vitamin D3) 25 25 mcg PO QAM 11/23/23 09/19/24 History mcg (1,000 unit) capsule lactobacillus combination no.9 4 4,000 mmu cells PO PM 11/23/23 09/19/24 History billion cell capsule (Adult 50 Plus Probiotic) insulin glargine 100 unit/mL (3 18 unit subcut HS 03/13/24 09/19/24 History mL) subcutaneous pen (Basaglar KwikPen U-100 Insulin) lisinopril 20 mg tablet 20 mg PO BID 03/13/24 09/19/24 History pravastatin 40 mg tablet 40 mg PO HS 03/14/24 09/19/24 History dicyclomine 20 mg tablet 20 mg PO QID PRN Abdominal Pain 07/29/24 09/19/24 History fluoxetine 20 mg capsule 60 mg PO DAILY 07/29/24 09/19/24 History hydroxyzine HCl 10 mg tablet 10 mg PO BID PRN Anxiety 07/29/24 09/19/24 History pantoprazole 40 mg tablet,delayed 40 mg PO QAM 07/29/24 09/19/24 History release lorazepam 0.5 mg tablet 0.5 mg PO Q6H PRN anxiety #30 tabs 08/01/24 09/19/24 Rx polyethylene glycol 3350 17 17 g PO DAILY PRN Constipation 09/19/24 09/19/24 History gram/dose oral powder (Miralax) Pain History Pain Intensity Pain scale - at its best (0-10): 0 Pain scale - at its worst (0-10): 8 Patient History Medical History Abdominal pain Insomnia Major depressive disorder, recurrent episode, severe with anxious distress Suicidal ideation Overdose History of stroke Insulin-requiring or dependent type II diabetes mellitus History of suicidal ideation (2014) Hx of fracture of left hip (06/2023) surgery Hx of fall (06/2023) fx femure, head injury, scalp lac Chronic hyponatremia Nausea and vomiting Iron deficiency 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, "I don't walk like i did before" History of colon polyps Epigastric pain Hx of bronchitis (2017) tx with inhaler at the time, no issues since Hyperlipemia Hypertension Hypothyroidism History of stroke (2021) "minor" no deficits, no neurologist, [facility] at [facility] and [facility] Hx of major depression Hx of diverticulitis of colon Diverticulosis Diabetes mellitus IDDM Surgical History Hx of tonsillectomy Hx of esophagogastroduodenoscopy Hx of colonoscopy with polypectomy History of (1991) History of right hip replacement (2020) History of open reduction and internal fixation (ORIF) procedure (11/2020) right wrist History of open reduction and internal fixation (ORIF) procedure (06/2023) Left femur, due to fall Family History Brother Hypertension Social History Smoking Status: Current every day smoker Tobacco Type: Cigarettes Cigarettes Per Day: 0-5; Second Hand Exposure: No; Do You Dip or Chew Tobacco: No; Hx Alcohol Use: No Hx Substance Use: No Preferred Language: Libyan Communication Ability: Effective 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 Speech and thought process appropriate. Mood and affect appropriate. Cognition intact. Head: Normocephalic and atraumatic. ENT: No evidence of nasal or oral mucosal lesions. Mucous membranes are moist. Eyes: Pupils equal round reactive to light. Neck: Supple without adenopathy and full range of motion. Chest: Nontender to palpation of the costosternal junction. Nontender over the chest wall posteriorly, laterally or anteriorly. Abdomen: Soft and nondistended. No organomegaly. Bowel sounds active. No rebound or guarding. Patient is tender throughout the right lower quadrant and suprapubic region to palpation. Patient noted some increased right lower quadrant abdominal pain with right-sided straight leg raise and resisted straight leg raise as well as resisted sit up maneuvering suggesting a positive Carnett's sign. There is no hyperalgesia in the abdominal region. Back/spine: Loss of lumbar lordosis. Nontender over the midline to palpation or percussion. No focal facet or costovertebral angle tenderness to palpation or percussion. Lower extremities: SLR is negative bilaterally. Hips are nontender with internal/external rotation. Sensation intact without deficit. Neurologic: Cranial nerves grossly intact. Ambulatory function not witnessed. Results (Pain Clinic) Diagnostic Review CT Findings: [facility], [place] [phone] CT Scan Report Patient: ALBA DICKENS Admit Date: 09/19/24 MR#: [id number] Address1: [address] [place] [address] Acct ID:[id number] Address2: [address] Date: [address] [facility] Zip: [place] [address] Age: 69 Location: ED Sex: F Room/Bed: Att Phy: Diagnosis: ABD PAIN, TACHYCARDIA Loni Phy: Heather Heath PA-C Service Date: 09/19/24 [facility] Phy: Interpreting Phy: Sixto Hernandez MDAdmit Phy: Ordering Phy: Terell Tariq MD cc: ~ CT ANGIOGRAPHY OF THE CHEST, PULMONARY EMBOLUS PROTOCOL CLINICAL HISTORY: Shortness of breath. Tachycardia. Evaluate for pulmonary embolus. COMPARISON STUDY: Chest radiograph July 29, 2024. Chest radiograph performed earlier today. TECHNIQUE: Following IV administration of 120 mL of Optiray, helical axial images of the chest were obtained utilizing the pulmonary embolus protocol. Maximal intensity projections and sagittal and coronal reformats were viewed on an independent 3D workstation. IV contrast was administered without complication. Automated exposure control was utilized for the study. A dose lowering technique was utilized adhering to the principles of ALARA. FINDINGS: No pulmonary emboli are identified. There is no thoracic aortic dissection. No enlarged axillary, mediastinal or hilar lymph nodes are present. There is mild emphysema. There is no consolidation to suggest pneumonia. No suspicious pulmonary nodules are present. There is mild wall thickening and mucus plugging within the lower lobes. Old right-sided rib fractures are incidentally noted. There are no acute rib fractures. There is a small hiatal hernia. Wall thickening of the distal esophagus is present. Old L1 compression fracture is incidentally noted. IMPRESSION: 1. No pulmonary emboli identified. 2. No acute intrathoracic findings. 3. Mild emphysema. 4. Small hiatal hernia. Distal esophageal wall thickening which may represent esophagitis. ACT 112: Negative or not required by law. Electronically signed by: Sixto Hernandez M.D. 09/19/2024 2:04 PM Dictated: 09/19/24 1359 Transcribed: 09/19/24 1359 [place], [place] [phone] CT Scan Report Patient: ALBA DICKENS Admit Date: 08/22/24 MR#: [id number] Address1: [address] [place] [address] Acct ID:[id number] Address2: [address] Date: [address] [facility] Zip: [place] [address] Age: 69 Location: ED Sex: F Room/Bed: Att Phy: Diagnosis: ABD PAIN, WEAKNESS Loni Phy: Heather Heath PA-C Service Date: 08/22/24 Fam Phy: Interpreting Phy: Sixto Hernandez MDAdmit Phy: Ordering Phy: Carl Hill MD cc: ~ CT OF THE ABDOMEN AND PELVIS WITH CONTRAST CLINICAL HISTORY: Right lower quadrant pain. COMPARISON STUDY: KUB July 31, 2024. CTA of the abdomen and pelvis July 29, 2024. TECHNIQUE: Following IV administration of 93 mL of Optiray, axial images of the abdomen and pelvis were obtained from the lung bases to the proximal femurs. Images were reviewed in the axial, sagittal, and coronal planes. IV contrast was administered without complication. Automated exposure control was utilized for the study. A dose lowering technique was utilized adhering to the principles of ALARA. CT DOSE: 570.7 mGy.cm FINDINGS: Visualized portions of the lung bases are unremarkable. There is a small hiatal hernia. No pneumatosis, free air or portal venous gas is present. Liver, spleen, adrenal glands, kidneys and pancreas are normal. There is no biliary or pancreatic ductal dilatation. There is no pancreatic or pericholecystic infiltration. No hydronephrosis. No urinary calculi are identified although images of the pelvis are degraded by streak artifact from a right hip arthroplasty and left femoral internal fixation. There is no evidence for a bowel obstruction. Extensive sigmoid diverticulosis without evidence for acute diverticulitis. The cecum is within the upper mid abdomen. The appendix is not visualized. Caliber and wall thickness of small and large bowel are normal. There is no lymphadenopathy. No fluid collections are present. Old L1 compression fracture is unchanged. There are old bilateral pubic ring fractures. No acute fractures within the lumbar spine, pelvis or hips are identified. IMPRESSION: 1. No acute process within the abdomen or pelvis. 2. No bowel obstruction. No bowel wall thickening. 3. Extensive colonic diverticulosis. No evidence for acute diverticulitis. ACT 112: Negative or not required by law. Electronically signed by: Sixto Hernandez M.D. 08/22/2024 3:09 PM Dictated: 08/22/24 1501 Transcribed: 08/22/24 1501 [place], [place] [phone] CT Scan Report Patient: ALBA DICKENS Admit Date: 07/29/24 MR#: [id number] Address1: [address] [place] [address] Acct ID:[id number] Address2: [address] Date: [address] [facility] Zip: [place] [address] Age: 69 Location: ED Sex: F Room/Bed: Att Phy: Diagnosis: STOMACH PAIN LAST COUPLE DAYS Loni Phy: Heather Heath PA-C Service Date: 07/29/24 Fam Phy: Interpreting Phy: Alonso Pollard MDAdmit Phy: Ordering Phy: Bogdan Ellis DO cc: ~ CT angio abdomen pelvis w con CLINICAL HISTORY: pain TECHNIQUE: Multidetector row helical CT of the abdomen and pelvis was performed, following intravenous administration of iodinated contrast. No oral contrast was administered. Automated dose lowering techniques and/or adjustment according to patient size were utilized for this exam. Coronal and sagittal reformations were obtained. MIP and 3D volume rendered reconstructions were obtained. CT DOSE: 603.89 mGy.cm Comparison: None available at the time of this dictation. FINDINGS: Lower chest: No acute abnormality Liver: Unremarkable. No focal lesions are seen. Gallbladder and biliary tree: No calcified gallstones. Normal caliber wall. No intra- or extrahepatic biliary ductal dilation. Pancreas: Unremarkable, no focal lesions. Spleen: Unremarkable. Adrenals: Unremarkable. Kidneys and ureters: Unremarkable. Bladder: Unremarkable. Reproductive organs: Unremarkable. Bowel: Diverticulosis is seen without evidence of diverticulitis. A small hiatal hernia is seen Lymph nodes Retroperitoneal: Unremarkable. Pelvic: Unremarkable. Mesenteric: Unremarkable. Peritoneum: Normal. Abdominal wall: Unremarkable. Bones: Right hip arthroplasty and left femoral nail is seen. CT angiogram: The abdominal aortic contours appear intact without evidence of aneurysmal dilatation and/or dissection. No significant atherosclerosis is seen. The origins of the celiac axis, superior mesenteric, inferior mesenteric and bilateral renal arteries are patent. Incidentally noted, there are 2 left renal arteries. IMPRESSION: Diverticulosis without diverticulitis. Additional findings as above. ACT 112: Negative or not required by law. Electronically signed by: Alonso Pollard M.D. 07/29/2024 2:24 PM Dictated: 07/29/24 1416 Transcribed: 07/29/24 1416
[2024-09-21] MEDS: LANTUS PER UNIT CHARGE SC ONE (11:30)
[2024-09-21] MEDS: METOCLOPRAMIDE HCL 5 MG TABLET PO SCH (16:27)
--- NOTE | 2024-09-21 16:31 | Hospitalist Progress Note ---
Date of Service September 21, 2024 Assessment & Plan (1) Insulin-requiring or dependent type II diabetes mellitus: Plan: Lana is a 69-year-old female with a Past medical history of poorly controlled type 2 diabetes last A1c 8.5%, chronic abdominal pain over several months, palpitations who presents with pseudohyponatremia, abdominal discomfort, and he was found to have a BSG greater than 400, anion gap acidosis and he was suspected to be in mild DKA. Patient has had intermittent chronic abdominal pain with hypoglycemia in the past, has an uninfected UA, has had multiple CTA/P scans in the preceding few months without acute finding and a nonacute abdomen on exam has been recommended for treatment of DKA. Abdominal CTA previously with diverticulosis without diverticulitis. No significant disease of the celiac axis, superior mesenteric, inferior mesenteric, and bilateral renal arteries was noted. Suprapubic/chronic abdominal discomfort -suspect pain is secondary to gastroparesis vs functional abdominal pain vs neuropathy vs pain/attention seeking -Patient w/ negative workup in past including CTAP, Abdomen CTA, KUB, EGD/CN -Gastric emptying study not yet to be completed but cannot completed until earliest 09/27 if patient remains inpatient. -Consult pain management, s/p trigger point injection 09/21. Consider baclofen vs gabapentin dependent upon patient response to injections. -Low dose Reglan started 09/21. Could consider up titrating as needed. -UA negative, overnight developed urinary retention and had Rizvi catheter placed. Consider void trial 09/22 dependent upon how patient is feeling. -Renal/bladder US pending. -Pain control w/ Bentyl and Dilaudid #Dysphagia hx of Schatzki ring 01/2024 on EGD s/p dilation Suspect Food bolus less likely as patient is able to intake liquids. - Patient visibly upset when recommended to downgrade to clear liquid diet. Downgraded to clear liquid diet until seen by GI. Patient endorses no hx of dysphagia events in past, unsure if reliable historian increased PPI to BID Consult GI, appreciate recommendations. Type II IDDM/HHS -CBC/BMP stable. -treated w/ insulin gtt, discontinued 09/19 and placed on Novolog. -pharmacy following to aide w/ glycemic management. Chronic conditions: Mental health: Fluoxetine HTN: ASA, Lisinopril HLD: statin GERD: PPI DVT PPx: Lovenox CODE STATUS: DNR/DNI discussed with patient at time of admission (2) Major depressive disorder, recurrent episode, severe with anxious distress: (3) Depression: Admission and Anticipated Discharge Date Admission Date: September 19, 2024 Subjective Patient seen and examined this afternoon. patient reports an abrupt onset of dysphagia yesterday evening while eating dinner. She immediately had to regurgitate her food back up. She was able to drink half an ensure for breakfast and did not vomit after. She then had a similar episode of regurgitation of her food this afternoon for lunch. She feels as if something is stuck in her esophagus and it is causing her discomfort. She denies having a hx of this although she does have hx of Schtazki ring s/p dilation in 01/2024. Patient is able to drink liquids without difficulty. Patient also expressed concern that "no one is doing anything for her". Discussed w/ the patient that she has had an extensive workup regarding her abdominal pain. She does feel some relief after her trigger point injections. Physical Exam Constitutional: WD/WN, vitals as above Eyes: PERRL, conjunctivae normal, anicteric sclerae Respiratory: breathing unlabored Cardiovascular: well perfused Psychiatric: A+Ox3, euthymic affect Results & Data Results & Data Vital Signs (Past 12 Hours) Vital Signs Temp Pulse Resp BP Pulse Ox O2 Del Method 09/21/24 15:52 36.9 C 68 18 156/77 H 94 Room Air 09/21/24 10:47 36.9 C 74 18 138/73 95 Room Air 09/21/24 07:06 36.8 C 75 19 142/74 H 91 Room Air PG Care Time/CCT Total # of Minutes Spent Total Time Spent with Patient: Total time spent is greater than 50% in coordination of care (as documented) at patient's floor/unit and/or counseling patient: Coding Level of Care Code 47418 SUB INP/OBS CARE 3/50MIN Diagnoses Insulin-requiring or dependent type II diabetes mellitus E11.9; Z79.4 Major depressive disorder, recurrent episode, severe with anxious distress F33.2 Depression F32.A Depression Type: unspecified (3) Depression Depression Type: unspecified Qualified Code(s): F32.A - Depression, unspecified
--- NOTE | 2024-09-21 17:53 | Ultrasound Report ---
Clinical history: Urinary retention Technique: Renal sonography was performed Findings: The kidneys are of normal size and echogenicity. The right kidney measures 9.1 cm in length and the left kidney measures 9.2 cm in length. There is no hydronephrosis or visualized hydroureter. No definite renal calculus or mass is seen. The urinary bladder is decompressed, with a Rizvi catheter present. Impression: Unremarkable renal sonogram Electronically signed by Rojelio Hunt 09-21-2024 5:51 PM
[2024-09-21] MEDS: PANTOprazole 40 MG TAB PO SCH (20:05)
[2024-09-22 06:54] LABS: Basophils # (auto) 0.01 K/uL (0.00-0.20); Basophils % (auto) 0.1 %; Eosinophils # (auto) 0.05 K/uL (0.00-0.50); Eosinophils % (auto) 0.7 %; Hematocrit (blood only) 34.5 % (37.0-47.0); Hemoglobin 11.9 g/dl (12.0-16.0); Immature Granulocytes # (auto) 0.01 K/uL (0.01-0.20); Immature Granulocytes % (auto) 0.1 %; Lymphocytes # (auto) 1.43 K/uL (1.20-3.40); Lymphocytes % (auto) 20.2 %; Mean Corpuscular Hemoglobin 30.8 pg (25.0-34.0); Mean Corpuscular Hgb Conc 34.5 g/dL (32.0-36.0); Mean Corpuscular Volume 89.4 fL (80.0-100.0); Mean Platelet Volume 10.8 fL (9.4-12.4); Monocytes # (auto) 0.41 K/uL (0.11-0.59); Monocytes % (auto) 5.8 %; Neutrophils # (auto) 5.17 K/uL (1.40-6.50); Neutrophils % (auto) 73.1 %; Platelet Count 230 K/uL (130-400); RDW Coefficient of Variation 13.1 % (11.5-14.5); RDW Standard Deviation 42.8 fL (36.4-46.3); Red Blood Count 3.86 M/uL (4.20-5.40); White Blood Count 7.08 K/ul (4.8-10.8)
[2024-09-22 07:18] LABS: BUN Creatinine Ratio 15.6 (10-20); Calcium 8.8 mg/dl (8.6-10.3); Creatinine Clr Calc Pharmacy 73.3 ml/min; Potassium 4.1 mmol/L (3.5-5.1)
[2024-09-22] MEDS: LANTUS PER UNIT CHARGE SC SCH (08:32)
--- NOTE | 2024-09-22 09:59 | Gastrointestinal Consultation ---
Date of Consultation September 22, 2024 Assessment & Plan (1) Dysphagia: Patient had an episode of dysphagia during her current admission. she was able to tolerate a clear liquid breakfast today. - discussed case with Dr. Vargas, can plan to set up an outpatient EGD to further evaluate. - take small bites, chew foods well, eat slowly, use fluids with meals. Supervising Physician Co-Signing Physician Notes I personally saw and examined the patient. I have reviewed the chart and agree with the documentation provided by the PROJECT ASSOCIATE including discussion about the assessment, treatment and plan. Briefly, 69 year old female with a past medical history of poorly controlled type 1 diabetes last A1c 8.5%, chronic abdominal pain over several months, palpitations who presented to the ED on 09/19 with complaints of abdominal pain and palpitations and admitted with pseudohyponatremia, abdominal discomfort, and she was suspected to be in mild DKA. She has had extensive work up of her abdominal pain in the past which has been unremarkable. During her current admission, she developed sudden onset dysphagia. She tells me she was eating a piece of meatloaf and felt it was sticking. Now tolerating breakfast and lunch without any issues. She does have an EGD done which showed a Schatzki's ring. I would consider an outpatient EGD as she had already eaten by the time patient was seen with possible dilation. If this does not improve it, then would do a solid-phase gastric emptying study. GI will sign off please have her follow-up outpatient with us. History of Present Illness Reason for Consultation: dysphagia / history of schatzki's ring Requesting Physician: Giovana CAMPO Attending Physician: João Snow History of Present Illness Patient is a 69 year old female with a past medical history of poorly controlled type 1 diabetes last A1c 8.5%, chronic abdominal pain over several months, palpitations who presented to the ED on 09/19 with complaints of abdominal pain and palpitations and admitted with pseudohyponatremia, abdominal discomfort, and she was suspected to be in mild DKA. She has had extensive work up of her abdominal pain in the past which has been unremarkable. During her current admission, she developed sudden onset dysphagia. She tells me she was eating a piece of meatloaf and felt it was sticking. She then had an episode of nausea and had to throw this up. no reflux. she tells me that for breakfast today she was able to tolerate liquids without issue. EGD 01/06/24 moderate schatzkis ring with dilation. LA-B esophagitis. small hiatal hernia, gastritis. Colonoscopy 01/06/24 diverticulosis and internal hemorrhoids. Allergies Allergy/AdvReac Type Severity Reaction Status Date / Time empagliflozin AdvReac Mild yeast Unverified 09/19/24 15:34 [From Jardiance] infections Home Medications Medication Instructions Recorded Confirmed Type levothyroxine 112 mcg tablet 112 mcg PO DAILYBB 11/22/21 09/19/24 History (Euthyrox) aspirin 81 mg tablet,delayed 81 mg PO QAM 06/18/23 09/19/24 History release insulin aspart U-100 100 unit/mL 1 sliding scale dose subcut 09/04/23 09/19/24 Rx (3 mL) subcutaneous pen (Novolog USEASDIRECTD #15 mL FlexPen U-100 Insulin aspart) multivitamin with folic acid 400 1 tab PO DAILY #1 tab 09/11/23 09/19/24 Rx mcg tablet (Daily-Arleen (with folic acid)) cholecalciferol (vitamin D3) 25 25 mcg PO QAM 11/23/23 09/19/24 History mcg (1,000 unit) capsule lactobacillus combination no.9 4 4,000 mmu cells PO PM 11/23/23 09/19/24 History billion cell capsule (Adult 50 Plus Probiotic) insulin glargine 100 unit/mL (3 18 unit subcut HS 03/13/24 09/19/24 History mL) subcutaneous pen (Basaglar KwikPen U-100 Insulin) lisinopril 20 mg tablet 20 mg PO BID 03/13/24 09/19/24 History pravastatin 40 mg tablet 40 mg PO HS 03/14/24 09/19/24 History dicyclomine 20 mg tablet 20 mg PO QID PRN Abdominal Pain 07/29/24 09/19/24 History fluoxetine 20 mg capsule 60 mg PO DAILY 07/29/24 09/19/24 History hydroxyzine HCl 10 mg tablet 10 mg PO BID PRN Anxiety 07/29/24 09/19/24 History pantoprazole 40 mg tablet,delayed 40 mg PO QAM 07/29/24 09/19/24 History release lorazepam 0.5 mg tablet 0.5 mg PO Q6H PRN anxiety #30 tabs 08/01/24 09/19/24 Rx polyethylene glycol 3350 17 17 g PO DAILY PRN Constipation 09/19/24 09/19/24 History gram/dose oral powder (Miralax) Patient History Medical History Abdominal pain Insomnia Major depressive disorder, recurrent episode, severe with anxious distress Suicidal ideation Overdose History of stroke Insulin-requiring or dependent type II diabetes mellitus History of suicidal ideation (2014) Hx of fracture of left hip (06/2023) surgery Hx of fall (06/2023) fx femure, head injury, scalp lac Chronic hyponatremia Nausea and vomiting Iron deficiency 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, "I don't walk like i did before" History of colon polyps Epigastric pain Hx of bronchitis (2017) tx with inhaler at the time, no issues since Hyperlipemia Hypertension Hypothyroidism History of stroke (2021) "minor" no deficits, no neurologist, treated at [facility] Hx of major depression Hx of diverticulitis of colon Diverticulosis Diabetes mellitus IDDM Surgical History Hx of tonsillectomy Hx of esophagogastroduodenoscopy Hx of colonoscopy with polypectomy History of (1991) History of right hip replacement (2020) History of open reduction and internal fixation (ORIF) procedure (11/2020) right wrist History of open reduction and internal fixation (ORIF) procedure (06/2023) Left femur, due to fall Family History Brother Hypertension Social History Smoking Status: Current every day smoker Tobacco Type: Cigarettes Cigarettes Per Day: 0-5; Second Hand Exposure: No; Do You Dip or Chew Tobacco: No; Hx Alcohol Use: No Hx Substance Use: No Preferred Language: Tamazight Communication Ability: Effective Veterinary Radiologist Required: No Beliefs That Will Affect Care: None marital status: / Current Living Situation: Alone current occupational status: retired How many Children do You have: 1 Feels Safe at Home: No Is there a partner from a previous relationship who is making you feel unsafe now?: No Safety Concerns: Afraid for Self Gender Identity: Female Assistive Devices: Walker Review of Systems Review of Systems: All systems reviewed & are unremarkable except as noted in HPI & below Physical Exam Constitutional: WD/WN, vitals as above Respiratory: normal respiratory effort, lungs clear to auscultation Cardiovascular: Rate/Rhythm: regular rate and regular rhythm Gastrointestinal (Abdomen): normal bowel sounds, soft, nontender, no hepatosplenomegaly Psychiatric: Orientation: alert and oriented x 3 Results & Data Vital Signs (Past 12 Hours) Vital Signs Temp Pulse Pulse Resp BP Pulse Ox O2 Del Method 09/22/24 07:34 59 L 09/22/24 07:01 98.2 F 67 19 175/81 H 93 Room Air 09/22/24 02:44 98.1 F 61 18 179/76 H 94 Room Air 09/21/24 23:34 56 L 09/21/24 22:55 98.2 F 57 L 16 173/85 H 95 Room Air Coding Level of Care Code 30334 INT INP/OBS CARE 2/55MIN Diagnoses Dysphagia R13.10
--- NOTE | 2024-09-22 13:48 | Pain Management Progress Note ---
Date of Service September 22, 2024 Assessment & Plan (1) Abdominal wall pain: (2) Chronic abdominal pain: Plan 1. Chronic abdominal pain of suspected abdominal wall etiology which appears to have responded favorably to trigger point injections. We discussed expectations from the abdominal wall trigger point injections and she verbalized understanding. 2. Patient will continue to follow with GI with plans for EGD regarding her recent complaints of dysphagia-we discussed there is unlikely relationship between these complaints and her abdominal pain. 3. We discussed contributions of anxiety and abdominal pain and she did recognize increased anxiety response to her abdominal pain 4. Patient has scheduled new patient consultation in the pain clinic in early September. She will maintain this appointment for outpatient evaluation. Pain service will sign off on patient at this time. Admission and Anticipated Discharge Date Admission Date: September 19, 2024 Subjective Mrs. Padilla is a 69-year-old white female with complaint of chronic abdominal pain in the right lower quadrant and suprapubic location over the past 6-7 months has had extensive diagnostic imaging and GI evaluation without abnormal findings. Abdominal wall trigger point injections were completed at yesterday's consultation. She is reporting a significant reduction in the frequency and severity of her right lower quadrant and suprapubic abdominal pain complaints since the time of the trigger point injections. Her primary complaint has been dysphagia over the past 24 hours. She had minimal right lower quadrant abdominal pain this morning prior to breakfast which she described as minimal in severity. Her pain has been ranging between 0-4/10 since the time of the trigger injections. She is currently rating her abdominal pain is 0/10. The patient did use a single dose of IV hydromorphone this morning for the right lower quadrant abdominal pain with resolution. She denies any notable side effects from the trigger point injections. Patient has no further constitutional complaints. Plan of care discussed with Dr. Tiffani Horn. Physical Exam Physical Exam: General: Patient was sitting up quietly in the exam room in no acute distress upon entering. Speech and thought process appropriate. Mood and affect appropriate. The patient appears moderately anxious. Cognition intact. Abdomen: No evidence of edema, erythema or skin breakdown at site of the right lower quadrant and superior pubic trigger point injections. She is nontender to palpation in the right lower quadrant and the suprapubic locations. She has no rebound or guarding. There is no palpable mass or abnormalities noted. Neurological and cranial nerves grossly intact. Ambulation not witnessed.
--- NOTE | 2024-09-22 14:13 | Pharmacy Report ---
Pharmacy Glycemic Short Note 2 - Date of Service September 22, 2024 - Glycemic Short BSG Results (Last 24 hours): 09/21/24 09/21/24 09/22/24 15:49 20:24 05:45 Glucose 248 H POC Glucose 178 H 192 H 09/22/24 09/22/24 07:00 11:04 Glucose POC Glucose 276 H 207 H OUTPATIENT ANTIDIABETIC REGIMEN: * Lantus 18 units daily, Novolog SSI ASSESSMENT: 09/22 * Patient received total of 19 units of insulin yesterday, of which 8 units were basal insulin * Fasting BSG 248 mg/dL - unable to confirm if any snacking overnight. Had crackers, boost previous night so fasting was elevated yesterday. Previously received 10 units of basal on 09/19 and following morning hypoglycemic. * Will titrate basal just slightly to 9 units. Hesitant to make further changes, will reassess tomorrow. 09/20 * 69 year old female admitted with abdominal discomfort, BSGs >400 on arrival - concerns for mild DKA. Started insulin infusion per DKA protocol, only on infusion x 2-3 hours then discontinued. Received Lantus 10 units x 1 dose last evening to help with drip transition. BSGs however falling overnight, 50s this AM - treated per hypoglycemia protocol. Did receive 8 units of correctional i nsulin overnight since BSGs >200s. * Held AM basal this AM for hypoglycemia - will have scale for basal insulin at HS time. No PO intake noted today yet. * Had nurse confirm with patient that she is a type 2 diabetic not type 1 diabetic as there is documentation in chart of both PLAN FOR INPATIENT GLYCEMIC CONTROL: * Hold outpatient oral diabetes medications * Basal insulin * Lantus 9 units daily * Bolus insulin * NovoLog per scale ACHS or Q6hrs while NPO * Goal Range: Low 120 mg/dL - High 160 mg/dL * Correction Factor: 40 mg/dL/unit * Nutritional / Prandial insulin per carb ratio of 1 unit per 20 grams CHO consumed
--- NOTE | 2024-09-22 16:48 | Hospitalist Progress Note ---
Date of Service September 22, 2024 Assessment & Plan (1) Insulin-requiring or dependent type II diabetes mellitus: Plan: Lana is a 69-year-old female with a Past medical history of poorly controlled type 2 diabetes last A1c 8.5%, chronic abdominal pain over several months, palpitations who presents with pseudohyponatremia, abdominal discomfort, and he was found to have a BSG greater than 400, anion gap acidosis and he was suspected to be in mild DKA. Patient has had intermittent chronic abdominal pain with hypoglycemia in the past, has an uninfected UA, has had multiple CTA/P scans in the preceding few months without acute finding and a nonacute abdomen on exam has been recommended for treatment of DKA. Abdominal CTA previously with diverticulosis without diverticulitis. No significant disease of the celiac axis, superior mesenteric, inferior mesenteric, and bilateral renal arteries was noted. #Suprapubic/chronic abdominal discomfort -suspect pain is secondary to gastroparesis vs functional abdominal pain vs neuropathy vs pain/attention seeking -Patient w/ negative workup in past including CTAP, Abdomen CTA, KUB, EGD/CN -Gastric emptying study not yet to be completed but cannot completed until earliest 09/27 if patient remains inpatient. -Consult pain management, s/p trigger point injection 09/21. Seems to be responding well. Follow up w/ pain management outpatient. -Low dose Reglan started 09/21. Could consider up titrating as needed. -UA negative -s/p Rizvi catheter placement secondary to urinary retention. Consider void trial 09/23. -Renal/bladder US negative. -Pain control w/ Bentyl and Dilaudid, Patient requiring few doses of Dilaudid #Dysphagia hx of Schatzki ring 01/2024 on EGD s/p dilation Patient endorses no hx of dysphagia events in past, unsure if reliable historian increased PPI to BID GI consulted - recommending outpatient EGD and to chew food thoroughly Type II IDDM/HHS CBC/BMP stable. treated w/ insulin gtt, discontinued 09/19 and placed on Novolog. pharmacy following to aide w/ glycemic management. PT/OT consulted. Chronic conditions: Mental health: Fluoxetine HTN: ASA, Lisinopril HLD: statin GERD: PPI DVT PPx: Lovenox CODE STATUS: DNR/DNI discussed with patient at time of admission (2) Major depressive disorder, recurrent episode, severe with anxious distress: (3) Depression: Admission and Anticipated Discharge Date Admission Date: September 19, 2024 Subjective Patient seen and examined this morning. Patient reports she is feeling anxious today and that is making her feel terrible. She admits that her abdominal pain has improved. She is anxious to eat something. She also would prefer to have her urinary catheter removed and try to void on her own. Physical Exam Constitutional: WD/WN, vitals as above Eyes: PERRL, conjunctivae normal, anicteric sclerae Respiratory: breathing unlabored Cardiovascular: well perfused Psychiatric: A+Ox3, euthymic affect Results & Data Results & Data Vital Signs (Past 12 Hours) Vital Signs Temp Pulse Pulse Resp BP Pulse Ox O2 Del Method 09/22/24 15:31 37.0 C 61 19 165/74 H 91 Room Air 09/22/24 14:35 67 09/22/24 10:48 36.8 C 58 L 19 163/77 H 95 Room Air 09/22/24 07:34 59 L 09/22/24 07:01 36.8 C 67 19 175/81 H 93 Room Air PG Care Time/CCT Total # of Minutes Spent Total Time Spent with Patient: Total time spent is greater than 50% in coordination of care (as documented) at patient's floor/unit and/or counseling patient: Coding Level of Care Code 42803 SUB INP/OBS CARE 2/35MIN Diagnoses Insulin-requiring or dependent type II diabetes mellitus E11.9; Z79.4 Major depressive disorder, recurrent episode, severe with anxious distress F33.2 Depression F32.A Depression Type: unspecified (3) Depression Depression Type: unspecified Qualified Code(s): F32.A - Depression, unspecified
[2024-09-22] MEDS: hydrOXYzine HCl 10 MG TAB PO PRN (16:56)
[2024-09-22] MEDS: POLYETHYLENE (MIRALAX) 17 GM PACK PO PRN (18:41)
[2024-09-23] MEDS: LANTUS PER UNIT CHARGE SC SCH (08:50)
[2024-09-23] MEDS: MAGNESIUM HYDROXIDE SUSP 30 ML UDC PO PRN (11:38)
--- NOTE | 2024-09-23 16:07 | Hospitalist Progress Note ---
Date of Service September 23, 2024 Assessment & Plan (1) Insulin-requiring or dependent type II diabetes mellitus: Plan: Lana is a 69-year-old female with a Past medical history of poorly controlled type 2 diabetes last A1c 8.5%, chronic abdominal pain over several months, palpitations who presents with pseudohyponatremia, abdominal discomfort, and he was found to have a BSG greater than 400, anion gap acidosis and he was suspected to be in mild DKA. Patient has had intermittent chronic abdominal pain with hypoglycemia in the past, has an uninfected UA, has had multiple CTA/P scans in the preceding few months without acute finding and a nonacute abdomen on exam has been recommended for treatment of DKA. Abdominal CTA previously with diverticulosis without diverticulitis. No significant disease of the celiac axis, superior mesenteric, inferior mesenteric, and bilateral renal arteries was noted. #Suprapubic/chronic abdominal discomfort -suspect pain is secondary to gastroparesis vs functional abdominal pain vs neuropathy vs pain/attention seeking -Patient w/ negative workup in past including CTAP, Abdomen CTA, KUB, EGD/CN -Gastric emptying study not yet to be completed but cannot completed until earliest 09/27 if patient remains inpatient. -Consult pain management, s/p trigger point injection 09/21. Seems to be responding well. Follow up w/ pain management outpatient. -Low dose Reglan started 09/21. Could consider up titrating as needed. -UA negative -s/p Rizvi catheter placement secondary to urinary retention. Void trial today 09/23 -Renal/bladder US negative. -Pain control w/ Bentyl and Dilaudid. Pt required few doses and constipated, dilaudid discontinued #Dysphagia hx of Schatzki ring 01/2024 on EGD s/p dilation Patient endorses no hx of dysphagia events in past, unsure if reliable historian increased PPI to BID GI consulted - recommending outpatient EGD and to chew food thoroughly Type II IDDM/HHS CBC/BMP stable. treated w/ insulin gtt, discontinued 09/19 and placed on Novolog. pharmacy following to aide w/ glycemic management. PT/OT consulted. Chronic conditions: Mental health: Fluoxetine HTN: ASA, Lisinopril HLD: statin GERD: PPI DVT PPx: Lovenox CODE STATUS: DNR/DNI discussed with patient at time of admission (2) Major depressive disorder, recurrent episode, severe with anxious distress: (3) Depression: Admission and Anticipated Discharge Date Admission Date: September 19, 2024 Subjective Patient seen and examined this morning. Patient that she is feeling better. Reports that he abdominal pain is gone. She reports constipation and would like Milk of Mag. She has been eating a soft diet and tolerating it well. She also would prefer to have her urinary catheter removed and we discussed removing and doing a void trial today. Review of Systems Constitutional: no fever and no chills Respiratory: no cough and no dyspnea Cardiovascular: no chest pain and no dyspnea Gastrointestinal: + constipation; no abdominal pain and no diarrhea/loose stools Genitourinary: no dysuria Physical Exam Constitutional: WD/WN, vitals as above Neck: trachea midline Respiratory: normal respiratory effort, lungs clear to auscultation Cardiovascular: RRR, no murmur, no edema Gastrointestinal (Abdomen): normal bowel sounds, soft, nontender, no hepatosplenomegaly Skin: no rashes, warm and dry Psychiatric: A+Ox3, euthymic affect Results & Data Results & Data Vital Signs (Past 12 Hours) Vital Signs Temp Pulse Resp BP Pulse Ox O2 Del Method 09/23/24 15:37 36.7 C 65 16 161/81 H 93 Room Air 09/23/24 07:45 36.9 C 65 16 166/85 H 92 Room Air Laboratory Results 09/23/24 09/23/24 09/22/24 Range/Units 11:37 07:26 20:19 POC Glucose 269 H 258 H 263 H (70-99) mg/dl PG Care Time/CCT Total # of Minutes Spent Total Time Spent with Patient: Total time spent is greater than 50% in coordination of care (as documented) at patient's floor/unit and/or counseling patient: Coding [place] [address] SUB INP/OBS CARE 2/35MIN Patient Type Established History Expanded Problem Focused Exam Expanded Problem Focused Medical Decision Making Moderate Complexity Diagnoses Insulin-requiring or dependent type II diabetes mellitus E11.9; Z79.4 Major depressive disorder, recurrent episode, severe with anxious distress F33.2 Depression F32.A Depression Type: unspecified (3) Depression Depression Type: unspecified Qualified Code(s): F32.A - Depression, unspecified
[2024-09-24 06:13] LABS: Hemoglobin 12.3 g/dl (12.0-16.0); Mean Corpuscular Hemoglobin 30.4 pg (25.0-34.0); Mean Corpuscular Hgb Conc 34.2 g/dL (32.0-36.0); Mean Corpuscular Volume 89.1 fL (80.0-100.0); Mean Platelet Volume 10.6 fL (9.4-12.4); Platelet Count 257 K/uL (130-400); RDW Coefficient of Variation 13.3 % (11.5-14.5); RDW Standard Deviation 43.6 fL (36.4-46.3); Red Blood Count 4.04 M/uL (4.20-5.40); White Blood Count 7.96 K/ul (4.8-10.8)
[2024-09-24 06:31] LABS: Calcium 9.2 mg/dl (8.6-10.3); Creatinine Clr Calc Pharmacy 78.9 ml/min; Potassium 4.8 mmol/L (3.5-5.1)
[2024-09-24] MEDS: DICYCLOMINE HCL 20 MG TAB PO PRN (08:18)
[2024-09-24] MEDS: LANTUS PER UNIT CHARGE SC SCH (09:08)
[2024-09-24] MEDS: KETOROLAC TROMETHAMINE 15 MG/ML VIAL IV ONE (10:51)
[2024-09-24] MEDS: METOCLOPRAMIDE HCL 10 MG TABLET PO SCH (11:42)
--- NOTE | 2024-09-24 11:42 | Hospitalist Progress Note ---
Date of Service September 24, 2024 Assessment & Plan (1) Insulin-requiring or dependent type II diabetes mellitus: Plan: Lana is a 69-year-old female with a PMH of poorly controlled type 2 diabetes last A1c 8.5%, chronic abdominal pain over several months, palpitations who presents with pseudohyponatremia, abdominal discomfort, and was found to have a BSG greater than 400, anion gap acidosis and was suspected to be in mild DKA. Patient has had intermittent chronic abdominal pain with hypoglycemia in the past, has an uninfected UA, has had multiple CTA/P scans in the preceding few months without acute finding and a nonacute abdomen on exam has been recommended for treatment of DKA. Abdominal CTA previously with diverticulosis without diverticulitis. No significant disease of the celiac axis, superior mesenteric, inferior mesenteric, and bilateral renal arteries was noted. #Suprapubic/chronic abdominal discomfort -suspect pain is secondary to gastroparesis vs functional abdominal pain vs neuropathy vs pain/attention seeking -Patient w/ negative workup in past including CTAP, Abdomen CTA, KUB, EGD/CN -Gastric emptying study not yet to be completed but cannot completed until earliest 09/27 if patient remains inpatient. -Consult pain management, s/p trigger point injection 09/21. Seems to be responding well. Follow up w/ pain management outpatient. -Reglan increased to 10mg achs 09/23 -UA negative -s/p Rizvi catheter placement secondary to urinary retention. Void trial today 09/23 - doing well. -Renal/bladder US negative. -Pain control w/ Bentyl. Did give a dose of Toradol x1. - Ativan PRN. #Dysphagia hx of Schatzki ring 01/2024 on EGD s/p dilation Patient endorses no hx of dysphagia events in past, unsure if reliable historian. She states she is tolerating her food well. Instructed her to chew slowly. increased PPI to BID GI consulted - recommending outpatient EGD and to chew food thoroughly Type II IDDM/HHS CBC/BMP stable. treated w/ insulin gtt, discontinued 09/19 and placed on Novolog. pharmacy following to aide w/ glycemic management. Adjustments made this AM 09/23 for hyperglycemia. PT/OT consulted. Chronic conditions: Mental health: Fluoxetine HTN: ASA, Lisinopril HLD: statin GERD: PPI DVT PPx: Lovenox CODE STATUS: DNR/DNI discussed with patient at time of admission (2) Major depressive disorder, recurrent episode, severe with anxious distress: (3) Depression: Admission and Anticipated Discharge Date Admission Date: September 19, 2024 Subjective Patient seen and examined this morning. Lana reports that she started with mid-epigastric pain this morning around 0100 - she did not tell the nurse at the time, hoping that it would go away, but it has not. She describes it as a constant, 8/10 pain that varies with intensity, no improvement/worsening with oral intake, no difficulty swallowing, does not worsen with movement. She denies diarrhea, last BM this morning. She had some toast and eggs this morning. The nurse gave her Bentyl with no improvement. She reports this pain is not new, experiences it at home. She had her urinary catheter removed yesterday, is voiding on her own - denies frequency, burning, urgency. Review of Systems Constitutional: no fever and no chills Respiratory: no cough, no chest congestion and no dyspnea Cardiovascular: no chest pain Gastrointestinal: + abdominal pain (See HPI); no nausea, n o vomiting, no constipation and no diarrhea/loose stools Genitourinary: no dysuria, no difficulty urinating, no urinary frequency, no urinary hesitancy, no urinary urgency, no decreased urination and no hematuria Physical Exam Constitutional: WD/WN, vitals as above Neck: trachea midline Respiratory: normal respiratory effort, lungs clear to auscultation Cardiovascular: RRR, no murmur, no edema Gastrointestinal (Abdomen): Inspection/Auscultation: abdomen normal to inspection Percussion/Palpation: + abdomen tender (epigastric) and abdomen soft; no guarding and abdomen not rigid Skin: no rashes, warm and dry Psychiatric: A+Ox3, euthymic affect Results & Data Results & Data Vital Signs (Past 12 Hours) Vital Signs Temp Pulse Resp BP Pulse Ox O2 Del Method 09/24/24 07:27 36.9 C 69 16 154/80 H 94 Room Air Laboratory Results 09/24/24 09/24/24 09/24/24 Range/Units 11:33 07:49 07:47 WBC (4.8-10.8) K/ul RBC (4.20-5.40) M/uL Hgb (12.0-16.0) g/dl Hct (37.0-47.0) % MCV (80.0-100.0) fL MCH (25.0-34.0) pg MCHC (32.0-36.0) g/dL RDW Std Deviation (36.4-46.3) fL RDW Coeff of Cindy (11.5-14.5) % Plt Count (130-400) K/uL MPV (9.4-12.4) fL Sodium (136-145) mmol/L Potassium (3.5-5.1) mmol/L Chloride (98-107) mmol/L Carbon Dioxide (21-32) mmol/L Anion Gap (3-11) BUN (6-23) mg/dl Creatinine (0.6-1.2) mg/dl Est Cr Clr Drug Dosing ml/min eGFR BUN/Creatinine Ratio (10-20) Glucose (70-99(Fasting)) mg/dl POC Glucose 275 H 315 H* 366 H* (70-99) mg/dl Calcium (8.6-10.3) mg/dl 09/24/24 09/23/24 09/23/24 Range/Units 05:33 20:21 16:23 WBC 7.96 (4.8-10.8) K/ul RBC 4.04 L (4.20-5.40) M/uL Hgb 12.3 (12.0-16.0) g/dl Hct 36.0 L (37.0-47.0) % MCV 89.1 (80.0-100.0) fL MCH 30.4 (25.0-34.0) pg MCHC 34.2 (32.0-36.0) g/dL RDW Std Deviation 43.6 (36.4-46.3) fL RDW Coeff of Cindy 13.3 (11.5-14.5) % Plt Count 257 (130-400) K/uL MPV 10.6 (9.4-12.4) fL Sodium 132 L (136-145) mmol/L Potassium 4.8 (3.5-5.1) mmol/L Chloride 99 (98-107) mmol/L Carbon Dioxide 26 (21-32) mmol/L Anion Gap 7 (3-11) BUN 12 (6-23) mg/dl Creatinine 0.60 (0.6-1.2) mg/dl Est Cr Clr Drug Dosing 78.9 ml/min eGFR 97.10 BUN/Creatinine Ratio 20.0 (10-20) Glucose 279 H (70-99(Fasting)) mg/dl POC Glucose 191 H 141 H (70-99) mg/dl Calcium 9.2 (8.6-10.3) mg/dl PG Care Time/CCT Total # of Minutes Spent Total Time Spent with Patient: Total time spent is greater than 50% in coordination of care (as documented) at patient's floor/unit and/or counseling patient: Coding Level of Care Code 19117 SUB INP/OBS CARE 2/35MIN Diagnoses Insulin-requiring or dependent type II diabetes mellitus E11.9; Z79.4 Major depressive disorder, recurrent episode, severe with anxious distress F 33.2 Depression F32.A Depression Type: unspecified (3) Depression Depression Type: unspecified Qualified Code(s): F32.A - Depression, unspecified
--- NOTE | 2024-09-24 14:18 | XRay Report ---
INDICATION: Feels food is stuck in her throat. TECHNIQUE: Frontal radiograph of the chest. COMPARISON: Radiograph from 09/19/2024. FINDINGS: The cardiomediastinal silhouette and pulmonary vasculature appear within normal limits. No infiltrate, pleural effusion or pneumothorax. Chronic appearing right rib deformities. No acute osseous abnormality evident. No foreign body identified. IMPRESSION: No acute cardiopulmonary process. Electronically signed by Malcom Leong 09-24-2024 2:17 PM
[2024-09-24] MEDS: FAMOTIDINE 20MG IV PUSH 20 MG/5 ML SYR IV STA (14:24)
[2024-09-24] MEDS ORDERED: ALUMINUM/MAGNESIUM SUSP 30 ML UDC PO PRN (14:41)
--- NOTE | 2024-09-24 14:49 | Communication Note ---
Date of Service: September 24, 2024 [place] from RN Dewey Marcus stating that the patient is bringing up some of her turkey from lunch. Pt reports it feels like her food is now getting stuck (was not an issue prior to today). She did bring up some turkey, but states it still feels like maybe something is stuck. She has been trying to wash it down with fluids without improvement. IV pepcid ordered, stat CXR showing no foreign body, GI cocktail PRN. Monitor for worsening. Diet changed to clear liquid. Could advance to soft diet if pain improves, sx improve. Would not put back on reg diet until follow up with GI since she now feels like her food is getting stuck. Discussed with Dr. Nevarez - no further intervention at this time. Instructed RN to reach out with new or worsening sxs.
[2024-09-24] MEDS: INSULIN ASPART PER UNIT CHARGE SC SCH (17:23)
[2024-09-25] MEDS: INSULIN ASPART PER UNIT CHARGE SC SCH (08:26)
--- NOTE | 2024-09-25 08:47 | Hospitalist Progress Note ---
Date of Service September 25, 2024 Assessment & Plan (1) Insulin-requiring or dependent type II diabetes mellitus: Plan: Lana is a 69-year-old female with a PMH of poorly controlled type 2 diabetes last A1c 8.5%, chronic abdominal pain over several months, palpitations who presents with pseudohyponatremia, abdominal discomfort, and was found to have a BSG greater than 400, anion gap acidosis and was suspected to be in mild DKA. Patient has had intermittent chronic abdominal pain with hypoglycemia in the past, has an uninfected UA, has had multiple CTA/P scans in the preceding few months without acute finding and a nonacute abdomen on exam has been recommended for treatment of DKA. Abdominal CTA previously with diverticulosis without diverticulitis. No significant disease of the celiac axis, superior mesenteric, inferior mesenteric, and bilateral renal arteries was noted. Admitted for abdominal discomfort/suprapubic discomfort as below but ongoing issues with diet advancement 09/24 and suspect underlying GI process needing further eval #Dysphagia Hx of Schatzki ring 01/2024 on EGD s/p dilation. GI consulted on admission, rec outpt EGD, chew food thoroughly. PPI prior increased to BID Diet advanced from full liquids to easy to chew but food got stuck/CXR obtained and no acute process noted Reglan increased to 10mg AC/HS for possible gastroparesis, reports has moved her bowels. Notable CT chest on admission noting small hiatal hernia w/ distal esophageal wall thickening ?esophagitis -Add carafate for 09/25 given possible esophagitis if any benefit Aspiration precautions added. Nutrition consult for supplements Speech consulted as well as repeat GI consult to eval for possible EGD/dilatation given ongoing issues and gentle IVF x 500cc ordeed for meantime -Speech plans for video/barrium in AM 09/26 - Per GI, ok for clear liquid for now, NPO at midnight for EGD with Dr Neville in AM. Monitor labs/exam in AM, f/u EGD GERD As above, PPI increased to BID, carafate added for esophagitis on CTAP. Repeat GI consult as above and aspiration precautions added, clear liquid diet and NPO at midnight for EGD as above #Suprapubic/chronic abdominal discomfort Cause for her admission along with BSG 400s w/o anion gap/suspected mild DKA Patient w/ negative workup in past including CTAP, Abdomen CTA, KUB, EGD/CN Suspected pain secondary to gastroparesis vs functional abdominal pain vs neuropathy vs pain/attention seeking on admission however concerns w/ dysphagia/underlying GI process w/ dysphagia above Rec's for outpt GES but not yet completed (earlier 09/27 if remains inpatient). Did get trigger point injection 09/21 w/ some improvement, pain management outpat rec'd Reglan increased to 10mg AC/HS 09/23 for possible gastroparesis UA not infected and renal US not significant. Bentyl tried, given dose toradol x 1, ativan prn. Repeat UA given ongoing suprapubic discomfort and prior pugh placement for urinary retention on 09/23 GI consult as above Low dose oxy 2.5mg PO x 1 for ongoing pain Monitor #DM II/mild DKA A1c 8.5, BSG 400s on admission w/o AG, mild DKA suspected. Given insulin gtt, discontinued 09/19 and on sliding scale. Pharmacy on consult and following and BSGs 200s. Na 129 but Glu 225 on AM chemistries and suspect higher but given poor PO intake/dry on exam additional gentle IV as above/monitor Chronic conditions: Mental health: Fluoxetine, support provided. ?benefit from cymbalta given gastroparesis concerns -- monitor/consider HTN: ASA, Lisinopril HLD: statin DVT PPx: Lovenox SQ continued Dispo: continued inpatient stay, full liquid diet continued and NPO at midnight for EGD/video and barium in AM. Hopeful improvement following possible dilatation if discovers schatzki's ring and ability to dc in next 24-48 hrs pending response (2) Major depressive disorder, recurrent episode, severe with anxious distress: (3) Depression: Admission and Anticipated Discharge Date Admission Date: September 19, 2024 Subjective Eval this morning, resting in bed. Reports lower abdominal discomfort, nursing about to provide dose tylenol. Reglan increased for possible gastroparesis and reports has been moving her bowels. No CP/SOB. Tolerating diet without issue and wanting advanced, will trial easy to chew but also consult speech. Will check repeat UA for completeness. Repeat labs/chemistries pending for today. Remains inpatient, to alert nursing if any worsening pain/need for escalation in pain control. Physical Exam 2 Physical Exam: General: 69 yo female sitting up in bed, mildly uncomfortable reporting pain to lower abdomen, NAD Head atraumatic, normocephalic, mm slightly dry, trachea midline Resp: diminished in the bases, no wheezing/rales, bibasilar crackles but on room air, no cough/tachypnea CV:RRR< no significant m/r/g,, no pitting edema GI: +BS throughout, slight tenderness lower abdomen without guarding/rigidity MSK/Neuro: nonfocal but generalized weakness, answering questions appropriately Psych: AOx3, cooperative with exam Results & Data Results & Data Vital Signs (Past 12 Hours) Vital Signs Temp Pulse Pulse Resp BP Pulse Ox O2 Del Method 09/25/24 07:30 36.8 C 61 17 142/66 H 92 Room Air 09/24/24 20:55 36.0 C L 63 16 173/89 H 94 Room Air Laboratory Results 09/24/24 05:33 09/25/24 10:26 Diagnostic Findings Chest X-Ray 09/24/24 13:47 INDICATION: Feels food is stuck in her throat. TECHNIQUE: Frontal radiograph of the chest. COMPARISON: Radiograph from 09/19/2024. FINDINGS: The cardiomediastinal silhouette and pulmonary vasculature appear within normal limits. No infiltrate, pleural effusion or pneumothorax. Chronic appearing right rib deformities. No acute osseous abnormality evident. No foreign body identified. IMPRESSION: No acute cardiopulmonary process. Electronically signed by Malcom Leong 09-24-2024 2:17 PM KUB X-Ray 09/25/24 09:22 KUB HISTORY: lower abd pain, eval stool burden COMPARISON STUDY: 07/31/2024 FINDINGS: There is moderate retained stool. No bowel obstruction seen. IMPRESSION: Moderate retained stool. ACT 112: Negative or not required by law. The above report was generated using voice recognition software. It may contain grammatical, syntax or spelling errors. Electronically signed by: Chucky Acevedo M.D. 09/25/2024 10:34 AM PG Care Time/CCT Total # of Minutes Spent Total Time Spent with Patient: Total time spent is greater than 50% in coordination of care (as documented) at patient's floor/unit and/or counseling patient: Coding Level of Care Code 32875 SUB INP/OBS CARE 3/50MIN Diagnoses Insulin-requiring or dependent type II diabetes mellitus E11.9; Z79.4 Major depressive disorder, recurrent episode, severe with anxious distress F33.2 Depression F32.A Depression Type: unspecified (3) Depression Depression Type: unspecified Qualified Code(s): F32.A - Depression, unspecified
[2024-09-25] MEDS: ACETAMINOPHEN 325 MG TAB PO PRN (09:20)
[2024-09-25] MEDS: SUCRALFATE 1 GM/10 ML UDC PO SCH (09:46)
[2024-09-25] MEDS: oxyCODONE HCL IR 5 MG TAB (IMMEDIATE RELEASE) PO ONE (09:47)
--- NOTE | 2024-09-25 10:35 | XRay Report ---
KUB HISTORY: lower abd pain, eval stool burden COMPARISON STUDY: 07/31/2024 FINDINGS: There is moderate retained stool. No bowel obstruction seen. IMPRESSION: Moderate retained stool. ACT 112: Negative or not required by law. The above report was generated using voice recognition software. It may contain grammatical, syntax o r spelling errors. Electronically signed by: Chucky Acevedo M.D. 09/25/2024 10:34 AM
[2024-09-25 11:06] LABS: BUN Creatinine Ratio 15.5 (10-20); Calcium 9.6 mg/dl (8.6-10.3); Creatinine Clr Calc Pharmacy 67.3 ml/min; Magnesium 1.8 mg/dl (1.7-2.4); Potassium 4.2 mmol/L (3.5-5.1)
--- NOTE | 2024-09-25 11:07 | Pharmacy Report ---
Pharmacy Glycemic Short Note 2 - Date of Service September 25, 2024 - Glycemic Short BSG Results (Last 24 hours): 09/24/24 09/24/24 09/24/24 11:33 16:45 20:28 POC Glucose 275 H 131 H 187 H 09/25/24 07:38 POC Glucose 208 H OUTPATIENT ANTIDIABETIC REGIMEN: * Lantus 18 units daily, Novolog SSI ASSESSMENT: 09/25 * Patient received a total of 26 units of insulin yesterday (15 units were basal and 11 units were bolus). * Fasting BSG was 208mg/dL this morning--patient noted to have snacked last evening without insulin coverage. Will not increase AM lantus dose at this time (increased to 15 units yesterday morning). * BSGs [phone]/dL yesterday. Tightened CR of bolus insulin just with breakfast and then loosen the rest of the day as lunch BSGs have been elevated. 09/22 * Patient received total of 19 units of insulin yesterday, of which 8 units were basal insulin * Fasting BSG 248 mg/dL - unable to confirm if any snacking overnight. Had crackers, boost previous night so fasting was elevated yesterday. Previously received 10 units of basal on 09/19 and following morning hypoglycemic. * Will titrate basal just slightly to 9 units. Hesitant to make further changes, will reassess tomorrow. 09/20 * 69 year old female admitted with abdominal discomfort, BSGs >400 on arrival - concerns for mild DKA. Started insulin infusion per DKA protocol, only on infusion x 2-3 hours then discontinued. Received Lantus 10 units x 1 dose last evening to help with drip transition. BSGs however falling overnight, 50s this AM - treated per hypoglycemia protocol. Did receive 8 units of correctional insulin overnight since BSGs >200s. * Held AM basal this AM for hypoglycemia - will have scale for basal insulin at HS time. No PO intake noted today yet. * Had nurse confirm with patient that she is a type 2 diabetic not type 1 diabetic as there is documentation in chart of both PLAN FOR INPATIENT GLYCEMIC CONTROL: * Hold outpatient diabetes medications * Basal insulin * Lantus 15 units daily * Bolus insulin * NovoLog per scale ACHS or Q6hrs while NPO * Goal Range: Low 120 mg/dL - High 160 mg/dL * Breakfast: -Correction Factor: 40 mg/dL/unit -Nutritional / Prandial insulin per carb ratio of 1 unit per 7 grams CHO consumed * Lunch, supper, and HS -Correction Factor: 40 mg/dL/unit -Nutritional / Prandial insulin per carb ratio of 1 unit per 15 grams CHO consumed
--- NOTE | 2024-09-25 11:54 | Gastroenterology Progress Note ---
Date of Service September 25, 2024 Assessment & Plan (1) Dysphagia: Plan: Ongoing issues with dysphagia and she is interested in having an EGD to further evaluate. - will plan to do an EGD tomorrow for further evaluation. NPO midnight. she is currently eating a tray of clear liquids. - continue with protonix 40mg po BID. Admission and Anticipated Discharge Date Admission Date: September 19, 2024 Supervising Physician Co-Signing Physician Notes Solid food dysphagia. Predominantly to meats. History of an upper endoscopy in January 2024. Fiber Schatzki's ring hiatal hernia identified that at that time. Dilated to 20 mm with ring disruption. Rescope at this time to evaluate for need for further dilatation. Patient reluctant to go home she said 2 episodes of solid food dysphagia joint this hospitalization. Seems reasonable to rescope her in the AM. Patient has eaten today. Subjective GI was asked to come back to see for another episode of dysphagia yesterday. She had taken a bite of turkey and felt like this got stuck and she had to cough this out. Currently, she is eating a tray of clears. she is interested in having an EGD while inpatient given ongoing issues. She has history of chronic pain, but this is not currently bothering her. she feels the pain meds she is on currently are controlling this. EGD 01/06/24 moderate schatzkis ring with dilation. LA-B esophagitis. small hiatal hernia, gastritis. Review of Systems Review of Systems: All systems reviewed & are unremarkable except as noted in HPI & below Physical Exam Respiratory: normal respiratory effort. Gastrointestinal (Abdomen): soft, normal bowel sounds, nontender Results & Data Results & Data Vital Signs (Past 12 Hours) Vital Signs Temp Pulse Resp BP Pulse Ox O2 Del Method 09/25/24 07:30 98.2 F 61 17 142/66 H 92 Room Air Coding Level of Care Code 77913 SUB INP/OBS CARE 2/35MIN Diagnoses Dysphagia R13.10
[2024-09-25] MEDS: bisacodyL 10 MG SUPP PR STA (12:03)
[2024-09-25] MEDS: SODIUM CHLORIDE 0.9% 500 ML IV SCH (12:04)
[2024-09-25 14:19] LABS: Appearance Urine Clear (Clear); Bacteria Urine Automated 4+ (None Seen); Bilirubin Urine Negative (Negative); Blood Urine Negative (Negative); Cast Urine Automated 0-2 /lpf (0-2); Color Urine Yellow; Epithelial Cell Urine Auto 0-2 /hpf (0-2); Glucose Urine UA 3+ (Negative); Ketones Urine 1+ (Negative); Leukocyte Esterase Urine 1+ (Negative); Nitrite Urine Negative (Negative); Protein Urine Negative (Negative); RBC Urine Automated 0-2 /hpf (0-2); Specific Gravity Urine 1.021 (1.000-1.030); Urobilinogen Urine Negative (Negative); WBC Urine Automated 21-50 /hpf (0-5)
[2024-09-26] MEDS ORDERED: Nursing to Pharmacy Communication SCH ×2 (07:45→15:15)
[2024-09-26 08:22] LABS: Albumin Globulin Ratio 1.3 (0.9-2); Albumin Level 3.7 gm/dl (3.4-5.0); BUN Creatinine Ratio 15.3 (10-20); Bilirubin,Total 0.4 mg/dl (0.2-1.0); Globulin 2.8 gm/dl (2.5-4.0); Magnesium 1.7 mg/dl (1.7-2.4); Potassium 4.2 mmol/L (3.5-5.1); Total Protein 6.5 gm/dl (6.0-8.3)
--- NOTE | 2024-09-26 08:22 | Communication Note ---
Date of Service: September 26, 2024 Patient has a fibrotic distal esophageal stricture. Reviewed images from January 2024. Her solid food dysphagia is likely related to recurrent narrowing at the stricture. I would proceed with an upper endoscopy today. Hold on barium and video swallows will hamper performance of endoscopy. Typically a day or 2 is required after a barium study before endoscopy can be performed. If there is no relief of her dysphagia following dilatation of her esophageal stricture then further imaging studies such as a barium esophagram or video swallow could be undertaken.
[2024-09-26] MEDS: LANTUS PER UNIT CHARGE SC SCH (09:19)
--- NOTE | 2024-09-26 09:47 | History & Physical Bridge Note ---
Date of Service September 26, 2024 History & Physical Bridge Note I have examined the patient, reviewed the History & Physical and in the interval since the performance of the History & Physical I have noted the following changes of clinical significance: she had a return of her abdominal pain over night. she was able to tolerate liquid diet yesterday without dysphagia. she has been NPO. no chest pain or sob. - will plan to proceed with an EGD today to further evaluate dysphagia. Supervising Physician Co-Signing Physician Notes Solid food dysphagia. Predominantly to meats. History of an upper endoscopy in January 2024. Fiber Schatzki's ring hiatal hernia identified that at that time. Dilated to 20 mm with ring disruption. Rescope at this time to evaluate for need for further dilatation. Patient reluctant to go home she said 2 episodes of solid food dysphagia joint this hospitalization. Seems reasonable to rescope her in the AM. Patient has eaten today.
[2024-09-26] MEDS: oxyCODONE HCL IR 5 MG TAB (IMMEDIATE RELEASE) PO STA (09:50)
--- NOTE | 2024-09-26 11:17 | Anesthesiology Consultation ---
Date of Service September 26, 2024 Assessment & Plan (1) Encounter for pre-operative examination: Chart Review Chart Review: Acceptable Risk for Surgery History Surgery Operation Date: 09/26/24 16:30 Proposed Procedures p Esophagogastroduodenoscopy Dr. Jamin Neville MD Height/Weight Height: 5 ft 5 in Weight: 58.967 kg Allergies Allergy/AdvReac Type Severity Reaction Status Date / Time empagliflozin AdvReac Mild yeast Unverified 09/19/24 15:34 [From Jardiance] infections Medications Home Medications Medication Instructions Recorded Confirmed Last Taken levothyroxine 112 mcg tablet 112 mcg PO DAILYBB 11/22/21 09/19/24 01/05/24 (Euthyrox) aspirin 81 mg tablet,delayed 81 mg PO QAM 06/18/23 09/19/24 12/23/23 release insulin aspart U-100 100 unit/mL 1 sliding scale dose subcut 09/04/23 09/19/24 01/05/24 (3 mL) subcutaneous pen (Novolog USEASDIRECTD #15 mL FlexPen U-100 Insulin aspart) multivitamin with folic acid 400 1 tab PO DAILY #1 tab 09/11/23 09/19/24 12/23/23 mcg tablet (Daily-Arleen (with folic acid)) cholecalciferol (vitamin D3) 25 25 mcg PO QAM 11/23/23 09/19/24 12/23/23 mcg (1,000 unit) capsule lactobacillus combination no.9 4 4,000 mmu cells PO PM 11/23/23 09/19/24 12/23/23 billion cell capsule (Adult 50 Plus Probiotic) insulin glargine 100 unit/mL (3 18 unit subcut HS 03/13/24 09/19/24 Unknown mL) subcutaneous pen (Basaglar KwikPen U-100 Insulin) lisinopril 20 mg tablet 20 mg PO BID 03/13/24 09/19/24 Unknown pravastatin 40 mg tablet 40 mg PO HS 03/14/24 09/19/24 Unknown dicyclomine 20 mg tablet 20 mg PO QID PRN Abdominal Pain 07/29/24 09/19/24 Unknown fluoxetine 20 mg capsule 60 mg PO DAILY 07/29/24 09/19/24 09/19/24 hydroxyzine HCl 10 mg tablet 10 mg PO BID PRN Anxiety 07/29/24 09/19/24 Unknown pantoprazole 40 mg tablet,delayed 40 mg PO QAM 07/29/24 09/19/24 Unknown release lorazepam 0.5 mg tablet 0.5 mg PO Q6H PRN anxiety #30 tabs 08/01/24 09/19/24 Unknown polyethylene glycol 3350 17 17 g PO DAILY PRN Constipation 09/19/24 09/19/24 Unknown gram/dose oral powder (Miralax) Active Medications Generic Name Dose Route Start Last Admin Trade Name Freq PRN Reason Stop Dose Admin Acetaminophen 650 mg 09/19/24 16:23 09/25/24 09:20 Acetaminophen 325 Mg Tab PO 10/19/24 16:22 650 mg Q4H PRN Administration Fever/Mild Pain (Pain 1,2,3) Aspirin 81 mg 09/20/24 09:00 09/25/24 09:18 Aspirin 81 Mg Ectab PO 10/20/24 08:59 81 mg QAM SACHI Administration Dicyclomine HCl 20 mg 09/19/24 18:21 09/24/24 08:18 Dicyclomine Hcl 20 Mg Tab PO 10/19/24 18:20 20 mg QID PRN Administration Abdominal Pain Enoxaparin Sodium 40 mg 09/19/24 19:00 09/24/24 20:56 Enoxaparin Inj 40 Mg/0.4 Ml Syr SQ 10/19/24 18:59 40 mg Q24H SACHI Administration Fluoxetine HCl 60 mg 09/20/24 09:00 09/25/24 09:18 Fluoxetine Hcl 20 Mg Cap PO 10/20/24 08:59 60 mg DAILY SCAHI Administration Hydroxyzine HCl 10 mg 09/19/24 18:21 09/22/24 16:56 Hydroxyzine Hcl 10 Mg Tab PO 10/19/24 18:20 10 mg BID PRN Administration Anxiety Insulin Aspart 0 units 09/25/24 07:30 09/26/24 07:42 Insulin Aspart Per Unit Charge SC 10/25/24 07:29 4 units 0730 SACHI Administration Insulin Glargine 18 units 09/26/24 09:00 09/26/24 09:19 Lantus Per Unit Charge SC 10/26/24 08:59 18 units DAILY SACHI Administration Levothyroxine Sodium 112 mcg 09/20/24 06:30 09/26/24 05:27 Levothyroxine Sodium 112 Mcg Tablet PO 10/20/24 06:29 112 mcg DAILYBB SACHI Administration Lisinopril 20 mg 09/20/24 21:00 09/25/24 20:13 Lisinopril 20 Mg Tab PO 10/20/24 20:59 20 mg BID SACHI Administration Lorazepam 0.5 mg 09/19/24 18:21 09/25/24 09:34 Lorazepam 0.5 Mg Tab PO 10/19/24 18:20 0.5 mg Q6H PRN Administration anxiety Magnesium Hydroxide 30 ml 09/23/24 11:23 09/23/24 11:38 Magnesium Hydroxide Susp 30 Ml Udc PO 10/23/24 11:22 30 ml DAILY PRN Administration Constipation Metoclopramide HCl 10 mg 09/24/24 11:30 09/26/24 08:56 Metoclopramide Hcl 10 Mg Tablet PO 10/24/24 11:29 Not Given ACHS SACHI Miscellaneous 15 - 30 gm 09/19/24 13:26 09/20/24 07:30 Carbohydrates For Hypoglycemia PO 10/19/24 13:25 15 gm UD PRN Administration Hypoglycemia Protocol Multivitamins 1 tab 09/20/24 09:00 09/25/24 09:19 Multivitamin Tab PO 10/20/24 08:59 1 tab DAILY SACHI Administration Ondansetron HCl 4 mg 09/19/24 16:18 09/20/24 17:32 Ondansetron Inj 2 Mg/Ml 2 Ml Vial IV 10/19/24 16:17 4 mg Q4H PRN Administration Nausea Pantoprazole Sodium 40 mg 09/21/24 21:00 09/25/24 20:13 Pantoprazole 40 Mg Tab PO 10/21/24 20:59 40 mg BID SACHI Administration Polyethylene Glycol 17 gm 09/19/24 18:21 09/22/24 18:41 Polyethylene (Miralax) 17 Gm Pack PO 10/19/24 18:20 17 gm DAILY PRN Administration Constipation Pravastatin Sodium 40 mg 09/19/24 21:00 09/25/24 20:14 Pravastatin Sod 40 Mg Tab PO 10/19/24 20:59 40 mg HS SACHI Administration Sucralfate 1 gm 09/25/24 09:00 09/26/24 08:55 Sucralfate 1 Gm/10 Ml Udc PO 10/25/24 08:59 Not Given QID [facility] Vitamin D 25 mcg 09/20/24 09:00 09/25/24 09:18 Cholecalciferol 25 Mcg (1000 Units) Tab PO 10/20/24 08:59 25 mcg QAM [facility] Administration Past Medical History Medical History Abdominal pain Insomnia Major depressive disorder, recurrent episode, severe with anxious distress Suicidal ideation Overdose History of stroke Insulin-requiring or dependent type II diabetes mellitus History of suicidal ideation (2014) Hx of fracture of left hip (06/2023) surgery Hx of fall (06/2023) fx femure, head injury, scalp lac Chronic hyponatremia Nausea and vomiting Iron deficiency 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, "I don't walk like i did before" History of colon polyps Epigastric pain Hx of bronchitis (2017) tx with inhaler at the time, no issues since Hyperlipemia Hypertension Hypothyroidism History of stroke (2021) "minor" no deficits, no neurologist, treated at [facility] and [facility] Hx of major depression Hx of diverticulitis of colon Diverticulosis Diabetes mellitus IDDM Past Family History Family History Brother Hypertension Past Surgical History Surgical History Hx of tonsillectomy Hx of esophagogastroduodenoscopy Hx of colonoscopy with polypectomy History of (1991) History of right hip replacement (2020) History of open reduction and internal fixation (ORIF) procedure (11/2020) right wrist History of open reduction and internal fixation (ORIF) procedure (06/2023) Left femur, due to fall Social History Smoking Status: Current every day smoker tobacco type: cigarettes Smoking cigarettes per day: 0-5 Do You Dip or Chew Tobacco: No Hx Alcohol Use: No Alcohol type: wine alcohol intake frequency: holidays/special occasions only Hx Substance Use: No substance use type: does not use Physical Exam Vital Signs Last Vital Signs Temp 36.7 C 09/26/24 10:59 Pulse 63 09/26/24 10:59 Resp 15 09/26/24 10:59 BP 129/67 09/26/24 10:59 Pulse Ox 92 09/26/24 10:59 O2 Del Method Room Air 09/26/24 10:59 Testing Laboratory Results 09/24/24 05:33 09/26/24 07:17 PT 10.4 Seconds (9.0-12.0) 09/19/24 11:50 INR 1.0 (0.9-1.1) 09/19/24 11:50 APTT 31 Seconds (21-31) 09/19/24 11:50 Hemoglobin A1c 8.5 % (4.5-5.6) H 09/19/24 14:13 Urine Color Yellow 09/25/24 13:50 Urine Appearance Clear (Clear) 09/25/24 13:50 Urine pH 6.0 (4.5-7.5) 09/25/24 13:50 Ur Specific [place] 1.021 (1.000-1.030) 09/25/24 13:50 Urine Protein Negative (Negative) 09/25/24 13:50 Urine Glucose (UA) 3+ (Negative) H 09/25/24 13:50 Urine Ketones 1+ (Negative) H 09/25/24 13:50 Urine Nitrite Negative (Negative) 09/25/24 13:50 Ur Leukocyte Esterase 1+ (Negative) H 09/25/24 13:50 Urine WBC (Auto) 21-50 /hpf (0-5) H 09/25/24 13:50 Urine RBC (Auto) 0-2 /hpf (0-2) 09/25/24 13:50 U Hyaline Cast (Auto) 0-2 /lpf (0-2) 09/25/24 13:50 U Epithel Cells (Auto) 0-2 /hpf (0-2) 09/25/24 13:50 Urine Bacteria (Auto) 4+ (None Seen) H 09/25/24 13:50 09/25/24 13:50 Urine Culture - Preliminary Urine,Clean Catch Staphylococcus epidermidis 09/26/24 07:16 POC Glucose 254 H Electrocardiogram Date: 09/19/24 Findings: + NSR @ (96) and + poor R wave progression Echocardiogram Date: 11/24/21 LV Function: normal Valvular Disease: + no significant valvular disease
[2024-09-26] MEDS: SODIUM CHLORIDE 0.9% 500 ML IV SCH (11:41)
--- NOTE | 2024-09-26 13:41 | GI REPORT ---
[facility] Patient: ALBA DICKENS : 1955 Sex at : Female Age: 69 Years Procedure: Upper GI endoscopy Date: 09/26/2024 Attending Physician: Yunior Neville MD Referring MD: Referred Self Indications: - Dysphagia - History of esophageal stricture Medications: - Monitored Anesthesia Care Complications: - No immediate complications. Estimated Blood Loss: - Estimated blood loss was minimal. Procedure: - The EGD scope was introduced through the mouth and advanced to the second part of the duodenum. - The upper GI endoscopy was accomplished without difficulty. - The patient tolerated the procedure well. Findings: - LA Grade B (one or more mucosal breaks greater than 5 mm, not extending between the tops of two mucosal folds) esophagitis with no bleeding was found in the lower third of the esophagus. - One benign-appearing, intrinsic moderate stenosis was found in the distal esophagus. The stenosis was traversed. A TTS dilator was passed through the scope. Dilation with an 18-19-20 mm balloon (to a maximum balloon size of 20 mm) dilator was performed 20 mm. The dilation site was examined and showed moderate improvement in luminal narrowing. Schatzki's ring opposite the balloon mucosal disruption was opened up with biopsy forceps to improve patient swallowing further. Estimated blood loss was minimal. - Patchy, white plaques were found in the upper third of the esophagus and in the middle third of the esophagus. Biopsies were taken with a cold forceps for histology. Estimated blood loss was minimal. - The entire examined stomach was normal. - The examined duodenum was normal. Impression: - LA Grade B reflux esophagitis with no bleeding. - Benign-appearing esophageal stenosis. Dilated with an 18-19-20 mm balloon (to a maximum balloon size of 20 mm). - Schatzki's ring opposite the balloon mucosal disruption was opened up with biopsy forceps to improve patient swallowing further. - Esophageal plaques were found, suspicious for candidiasis. Biopsied. - Normal stomach. There was some bile in the stomach. Patient may benefit from head of the bed elevation to prevent nocturnal alkaline reflux - Normal examined duodenum. Recommendation: - Follow an antireflux regimen indefinitely. - Pantoprazole 40 mg half an hour before breakfast daily indefinitely. - If swallowing not improved and biopsies confirm esophageal candidiasis could consider short time 5 days of Diflucan. Procedure Code(s): - 91901, Esophagogastroduodenoscopy, flexible, transoral; with transendoscopic balloon dilation of esophagus (less than 30 mm diameter) - 66258-32, Esophagogastroduodenoscopy, flexible, transoral; with biopsy, single or multiple Diagnosis Code(s): - R13.10, Dysphagia, unspecified - K21.00, Gastro-esophageal reflux disease with esophagitis, without bleeding - K22.2, Esophageal obstruction - K22.9, Disease of esophagus, unspecified CPT(R) - 2022 copyright [employer]. All Rights Reserved. The CPT codes, CCI edits and ICD codes generated are intended as suggestions and were generated based on input data. These codes are preliminary and upon certified medical records coder review may be revised to meet current compliance and payer requirements. The provider is responsible for the final determination of appropriate codes, and modifiers. Yunior Neville MD This document has been electronically signed. Note Initiated:09/26/2024 Note Completed:09/26/2024 1:40 PM [email or web address]\Results\[email or web address]\[id number]
--- NOTE | 2024-09-26 13:53 | Communication Note ---
Date of Service: September 26, 2024 EGD Distal esophagitis with ulcerations third of the lower esophagus. Appears patient does not take her PPI regularly. I stressed the importance of daily Protonix otherwise the esophagitis and stricture will recur. It was unclear whether this will resolve her epigastric or abdominal pain. She did notice significant improvement of her swallowing following dilatation. This point I do not think a barium esophagram or barium swallow is required. She also had some esophageal candidiasis. If her swallowing is not improved we could consider 5 to 7 days of Diflucan. Patient to be discharged from a GI perspective. Follow-up with GI as needed.
--- NOTE | 2024-09-26 14:19 | Pharmacy Report ---
Pharmacy Glycemic Short Note 2 - Date of Service September 26, 2024 - Glycemic Short BSG Results (Last 24 hours): 09/25/24 09/25/24 09/26/24 16:38 20:38 07:16 Glucose POC Glucose 190 H 122 H 254 H 09/26/24 09/26/24 07:17 12:33 Glucose 201 H POC Glucose 81 OUTPATIENT ANTIDIABETIC REGIMEN: * Lantus 18 units daily, Novolog SSI ASSESSMENT: 09/26 * Lana received 29 units of SQ insulin yesterday (15 units basal + 14 units bolus) * Fasting BSG of 254 mg/dL. Fasting has been > 200 mg/dL this entire admission. Will further increase basal. * Will tighten correction factor with breakfast only given breakfast and lunch continue to be highest BSGs of the day. 09/25 * Patient received a total of 26 units of insulin yesterday (15 units were basal and 11 units were bolus). * Fasting BSG was 208mg/dL this morning--patient noted to have snacked last evening without insulin coverage. Will not increase AM lantus dose at this time (increased to 15 units yesterday morning). * BSGs [phone]/dL yesterday. Tightened CR of bolus insulin just with breakfast and then loosen the rest of the day as lunch BSGs have been elevated. 09/22 * Patient received total of 19 units of insulin yesterday, of which 8 units were basal insulin * Fasting BSG 248 mg/dL - unable to confirm if any snacking overnight. Had crackers, boost previous night so fasting was elevated yesterday. Previously received 10 units of basal on 09/19 and following morning hypoglycemic. * Will titrate basal just slightly to 9 units. Hesitant to make further changes, will reassess tomorrow. 09/20 * 69 year old female admitted with abdominal discomfort, BSGs >400 on arrival - concerns for mild DKA. Started insulin infusion per DKA protocol, only on in fusion x 2-3 hours then discontinued. Received Lantus 10 units x 1 dose last evening to help with drip transition. BSGs however falling overnight, 50s this AM - treated per hypoglycemia protocol. Did receive 8 units of correctional insulin overnight since BSGs >200s. * Held AM basal this AM for hypoglycemia - will have scale for basal insulin at HS time. No PO intake noted today yet. * Had nurse confirm with patient that she is a type 2 diabetic not type 1 diabetic as there is documentation in chart of both PLAN FOR INPATIENT GLYCEMIC CONTROL: * Hold outpatient diabetes medications * Basal insulin * Lantus 18 units daily * Bolus insulin * NovoLog per scale ACHS or Q6hrs while NPO * Goal Range: Low 120 mg/dL - High 160 mg/dL * Breakfast: -Correction Factor: 30 mg/dL/unit -Nutritional / Prandial insulin per carb ratio of 1 unit per 7 grams CHO consumed * Lunch, supper, and HS -Correction Factor: 40 mg/dL/unit -Nutritional / Prandial insulin per carb ratio of 1 unit per 15 grams CHO consumed
--- NOTE | 2024-09-26 14:48 | Anesthesiology Progress Note ---
Date of Service September 26, 2024 Anesthesia Post Procedure Vital Signs Vital Signs: Temp Pulse Resp BP Pulse Ox O2 Del Method 09/26/24 14:37 36.3 C L 60 16 151/86 H 96 Room Air 09/26/24 14:14 59 L 16 163/77 H 97 Room Air 09/26/24 13:52 57 L 16 155/76 H 96 Room Air 09/26/24 13:37 59 L 16 133/73 100 Room Air 09/26/24 11:30 36.7 C 61 15 152/76 H 94 Room Air 09/26/24 10:59 36.7 C 63 15 129/67 92 Room Air 09/26/24 07:36 36.6 C 62 17 151/78 H 94 Room Air 09/25/24 22:15 Room Air 09/25/24 20:57 36.7 C 62 18 157/82 H 94 Room Air Pain Intensity Right Lower Abdomen: Pain Intensity: 8 Transfer of Care Handoff Completed per policy Notes Mental Status: alert / awake / arousable Patient Amnestic to Procedure: Yes Nausea / Vomiting: adequately controlled Pain: adequately controlled Airway Patency, RR, SpO2: stable & adequate BP & HR: stable & adequate Hydration State: stable & adequate Anesthetic Complications: no major complications apparent
[2024-09-26] MEDS: LIDOCAINE 2% 2 ML VIAL/AMP(20MG/ML) INFIL ONE (14:49)
[2024-09-26] MEDS: PROPOFOL IV EMULSION 10 MG/ML 20 ML VIAL IV ONE (15:06)
[2024-09-26] MEDS: INSULIN ASPART PER UNIT CHARGE SC SCH ×2 (15:26→17:22)
--- NOTE | 2024-09-26 18:03 | Hospitalist Progress Note ---
Date of Service September 26, 2024 Assessment & Plan (1) Insulin-requiring or dependent type II diabetes mellitus: Plan: Lana is a 69-year-old female with a PMH of poorly controlled type 2 diabetes last A1c 8.5%, chronic abdominal pain over several months, palpitations who presents with pseudohyponatremia, abdominal discomfort, and was found to have a BSG greater than 400, anion gap acidosis and was suspected to be in mild DKA. Patient has had intermittent chronic abdominal pain with hypoglycemia in the past, has had multiple CTA/P scans in the preceding few months without acute finding and a nonacute abdomen on exam, was admitted for treatment of DKA. #Dysphagia/ GERD Hx of Schatzki ring 01/2024 on EGD s/p dilation. GI consulted on admission, rec outpt EGD, chew food thoroughly. However with repeat episode of dysphagia, GI reconsulted and plan for EGD 09/26. EGD revealed benign-appearing esophageal stenosis, Schatzki's ring which was dilated. Esophageal plaques suspicious for candidiasis, biopsies pending. There was some bile in the stomach and would benefit from elevated head of bed. - Recommend antireflux regimen and difference indefinitely, pantoprazole 40 mg 1/2-hour before breakfast indefinitely Continue PPI BID, Carafate QID. Reglan added for possible gastroparesis, increased to 10mg - no change in pain EMERGENCY NURSE consulted - however VFSS not necessary given EGD findings Full liquid diet - if tolerating, will touch base with EMERGENCY NURSE for further recommendations #Suprapubic/chronic abdominal discomfort Patient w/ negative workup in past including CTAP, Abdomen CTA, KUB, EGD/CN. Suspected pain secondary to gastroparesis vs functional abdominal pain vs neuropathy vs pain/attention seeking on admission Rec's for outpt GES but not yet completed Did get trigger point injection 09/21 w/ some improvement, pain management outpat rec'd Reglan increased to 10mg AC/HS 09/23 for possible gastroparesis UA not infected and renal US not significant. Bentyl tried, given dose toradol x 1, ativan prn. Repeat UA given retention - UC with staph epi, given afebrile, no leukocytosis or specific suprapubic pain, frequency or urgency - will defer abx, likely asymp tomatic bacteuira ?constipation as a cause - daily miralax added. PO Dulcolax given, if no BM consider suppository as KUB with moderate stool #DM II/mild DKA A1c 8.5, BSG 400s on admission w/o AG, mild DKA suspected. Given insulin gtt, discontinued 09/19 and on sliding scale. Pharmacy glycemic consult Mental health: Fluoxetine HTN: ASA, Lisinopril HLD: statin DVT PPx: Lovenox SQ continued Dispo: continued inpatient stay, if pain back to baseline, possible d/c tomorrow (2) Major depressive disorder, recurrent episode, severe with anxious distress: (3) Depression: Admission and Anticipated Discharge Date Admission Date: September 19, 2024 Supervising Physician Co-Signing Physician Notes Attending Attestation - Chart reviewed, care plan d/w AMBER Cohen. I agree w/ the crane components of her documentation with the following additions -- s/p EGD today with - * esophagitis * candidal esophagitis (suspected) * esophageal stenosis s/p dilatation * Schatzki's ring s/p dilatation * no bleeding during the EGD PPI, carafate uncertain if EGD findings explain chronic GI symptoms but certainly account for dysphagia Kole Rehman MD Subjective Patient seen post EGD - tolerating liquids having twinges of abdominal pain not always in the same spot - has been going on since the summer. extensive workup without findings no BM yesterday or today Review of Systems Review of Systems: All systems reviewed & are unremarkable except as noted in Subjective Physical Exam Physical Exam: General: NAD, VS as above Resp: normal respiratory effort, lungs clear to auscultation CV: RRR, no murmur, Abd: normal bowel sounds, non tender, reports abdominal pain but not in consistent areas when going back to repalpate Extremities: Moves all extremities, no edema Neuro: A&O x3, Results & Data Results & Data Vital Signs (Past 12 Hours) Vital Signs Temp Pulse Resp BP Pulse Ox O2 Del Method 09/26/24 14:37 97.3 F L 60 16 151/86 H 96 Room Air 09/26/24 14:14 59 L 16 163/77 H 97 Room Air 09/26/24 13:52 57 L 16 155/76 H 96 Room Air 09/26/24 13:37 59 L 16 133/73 100 Room Air 09/26/24 11:30 98.1 F 61 15 152/76 H 94 Room Air 09/26/24 10:59 98.1 F 63 15 129/67 92 Room Air 09/26/24 07:36 97.9 F 62 17 151/78 H 94 Room Air Laboratory Results BMP reviewed Urine culture reviewed Diagnostic Findings EGD reviewed PG Care Time/CCT Total # of Minutes Spent Total Time Spent with Patient: Total time spent is greater than 50% in coordination of care (as documented) at patient's floor/unit and/or counseling patient: Coding Level of Care Code 81866 SUB INP/OBS CARE 3/50MIN Diagnoses Insulin-requiring or dependent type II diabetes mellitus E11.9; Z79.4 Major depressive disorder, recurrent episode, severe with anxious distress F33.2 Depression F32.A Depression Type: unspecified (3) Depression Depression Type: unspecified Qualified Code(s): F32.A - Depression, unspecified
[2024-09-26] MEDS: bisacodyL 5 MG TABEC PO ONE (18:48)
[2024-09-26] MEDS: POLYETHYLENE (MIRALAX) 17 GM PACK PO SCH (18:48)
[2024-09-27] MEDS ORDERED: Nursing to Pharmacy Communication SCH ×2 (00:30→19:15)
[2024-09-27] MEDS: INSULIN ASPART PER UNIT CHARGE SC SCH ×2 (06:00→21:29)
[2024-09-27 08:07] LABS: Hematocrit (blood only) 34.9 % (37.0-47.0); Hemoglobin 12.2 g/dl (12.0-16.0); Mean Corpuscular Hemoglobin 31.2 pg (25.0-34.0); Mean Corpuscular Volume 89.3 fL (80.0-100.0); Mean Platelet Volume 10.6 fL (9.4-12.4); Platelet Count 296 K/uL (130-400); RDW Coefficient of Variation 13.4 % (11.5-14.5); Red Blood Count 3.91 M/uL (4.20-5.40)
[2024-09-27 08:24] LABS: BUN Creatinine Ratio 11.1 (10-20); Calcium 8.9 mg/dl (8.6-10.3); Creatinine Clr Calc Pharmacy 75.8 ml/min; Potassium 4.3 mmol/L (3.5-5.1)
--- NOTE | 2024-09-27 14:52 | Nuclear Medicine Report ---
NM gastric emptying study CLINICAL HISTORY: abdominal pain, eval gastroparesis. TECHNIQUE: After the oral ingestion of the meal consisting of egg substitute labeled with 1.0 mCi te chnetium-99m sulfur colloid, toast, jam and water, sequential anterior and posterior images were obta ined through 4 hours. Rersidual gastric activity was measured at several time points. COMPARISON: None FINDINGS: Uptake retention in the stomach at 1 hour is 75% normal, 54% at 2 hours normal, and 24% at 4 hours mildly greater than normal. IMPRESSION: Mildly abnormal retention of activity at 4 hours. There was 24% retention with normal blair ng 10%. ACT 112: Negative or not required by law. The above report was generated using voice recognition software. It may contain grammatical, syntax o r spelling errors. Electronically signed by: Chucky Acevedo M.D. 09/27/2024 2:51 PM
--- NOTE | 2024-09-27 16:41 | Hospitalist Progress Note ---
Date of Service September 27, 2024 Assessment & Plan (1) Insulin-requiring or dependent type II diabetes mellitus: Plan: Lana is a 69-year-old female with a PMH of poorly controlled type 2 diabetes last A1c 8.5%, chronic abdominal pain over several months, palpitations who presents with pseudohyponatremia, abdominal discomfort, and was found to have a BSG greater than 400, anion gap acidosis and was suspected to be in mild DKA. Patient has had intermittent chronic abdominal pain with hypoglycemia in the past, has had multiple CTA/P scans in the preceding few months without acute finding and a nonacute abdomen on exam, was admitted for treatment of DKA. #Dysphagia/ GERD Hx of Schatzki ring 01/2024 on EGD s/p dilation. GI consulted on admission, rec outpt EGD, chew food thoroughly. However with repeat episode of dysphagia, GI reconsulted and plan for EGD 09/26. EGD revealed benign-appearing esophageal stenosis, Schatzki's ring which was dilated. Esophageal plaques suspicious for candidiasis, biopsies pending. There was some bile in the stomach and would benefit from elevated head of bed. - Recommend antireflux regimen and difference indefinitely, pantoprazole 40 mg 1/2-hour before breakfast indefinitely Continue PPI BID #Suprapubic/chronic abdominal discomfort Patient w/ negative workup in past including CTAP, Abdomen CTA, KUB, EGD/CN. Suspected pain secondary to gastroparesis vs functional abdominal pain vs neuropathy vs pain/attention seeking on admission Did get trigger point injection 09/21 w/ some improvement, pain management outpat rec'd Gastric emptying study consistent with gastroparesis, note this was done while patient was already on scheduled Reglan and would likely have been worse without this. Will decrease her Reglan to 5 mg 4 times daily as this is the dose I would prefer to send her home on given her interaction with her SSRI UA not infected and renal US not significant. Repeat UA given retention - UC with staph epi, given afebrile, no leukocytosis or specific suprapubic pain, frequency or urgency - will defer abx, likely asymptomatic bacteuira ?constipation as a cause - daily miralax added. PO Dulcolax given today, defer enema with small bowel movement this morning #DM II/mild DKA A1c 8.5, BSG 400s on admission w/o AG, mild DKA suspected. Given insulin gtt, discontinued 09/19 and on sliding scale. Pharmacy glycemic consult Mental health: Fluoxetine HTN: ASA, Lisinopril HLD: statin DVT PPx: Lovenox SQ continued Dispo: continued inpatient stay, hopeful for discharge tomorrow. Plan for PT to eval in the morning to make sure this is a safe plan (2) Major depressive disorder, recurrent episode, severe with anxious distress: (3) Depression: Admission and Anticipated Discharge Date Admission Date: September 19, 2024 Supervising Physician Co-Signing Physician Notes Attending Attestation - Chart reviewed, care plan d/w AMBER Cohen. I agree w/ the crane components of her documentation. Gastric emptying study -- positive for gastroparesis (and was actually on reglan -- had she not been receiving such results would have been worse). Cont reglan AC. Cont PPI, carafate for esphagitis. PT eval tomorrow. Kole Rehman MD Subjective patient seen after gastric emptying study this afternoon Reports that she has not had abdominal pain all day Discussed the finding of gastroparesis on her gastric emptying study When discussing possible discharge today, states that she feels too weak. Will plan for PT evaluations in the morning Did have a small bowel movement this morning but does not feel that she is completely emptied Review of Systems Review of Systems: All systems reviewed & are unremarkable except as noted in Subjective Physical Exam Physical Exam: General: NAD, VS as above Resp: normal respiratory effort, CV: well-perfused Abd: soft nontender Extremities: Moves all extremities, no edema Neuro: A&O x3, Results & Data Results & Data Vital Signs (Past 12 Hours) Vital Signs Temp Pulse Resp BP Pulse Ox O2 Del Method 09/27/24 14:59 97.7 F 68 16 126/75 94 Room Air 09/27/24 08:05 98.1 F 64 15 163/76 H 92 Room Air 09/27/24 08:00 Room Air Laboratory Results CBC chemistry reviewed PG Care Time/CCT Total # of Minutes Spent Total Time Spent with Patient: Total time spent is greater than 50% in coordination of care (as documented) at patient's floor/unit and/or counseling patient: Coding Level of Care Code 71857 SUB INP/OBS CARE 3/50MIN Diagnoses Insulin-requiring or dependent type II diabetes mellitus E11.9; Z79.4 Major depressive disorder, recurrent episode, severe with anxious distress F 33.2 Depression F32.A Depression Type: unspecified (3) Depression Depression Type: unspecified Qualified Code(s): F32.A - Depression, unspecified
[2024-09-27] MEDS: bisacodyL 5 MG TABEC PO ONE (16:49)
[2024-09-27] MEDS: METOCLOPRAMIDE HCL 5 MG TABLET PO SCH (20:31)
[2024-09-28 07:14] VITALS: BP 151/69; PULSE 62; RESP 15; TEMP 98.3; O2SAT 95
[2024-09-28] MEDS: LANTUS PER UNIT CHARGE SC SCH (08:52)
--- NOTE | 2024-09-28 11:38 | Discharge Summary ---
Discharge Summary Date of Service September 28, 2024 Principal Dx & Hospital Course #1 = Principal Diagnosis (1) Insulin-requiring or dependent type II diabetes mellitus: (2) Major depressive disorder, recurrent episode, severe with anxious distress: (3) Depression: Plan #DM II/mild DKA Lana is a 69-year-old female with a PMH of poorly controlled type 2 diabetes last A1c 8.5%, chronic abdominal pain over several months, palpitations who presents with pseudohyponatremia, abdominal discomfort, and was found to have a BSG greater than 400, anion gap acidosis and was suspected to be in mild DKA. Patient has had intermittent chronic abdominal pain with hypoglycemia in the past, has had multiple CTA/P scans in the preceding few months without acute finding and a nonacute abdomen on exam, was admitted for treatment of DKA. Was on insulin drip for a short time and then coverted to basal - bolus. A1c 8.5. Lantus increased to 20 units at discharge. #Dysphagia/ GERD Hx of Schatzki ring 01/2024 on EGD s/p dilation. Follows with [facility] - Recommend f/u within one month at discharge GI consulted s/p EGD 09/26 revealed benign-appearing esophageal stenosis, Schatzki's ring which was dilated. Bx negative for raymond. Dysphagia has improved since. There was some bile in the stomach and would benefit from elevated head of bed. Recommend antireflux regimen indefinitely, PPI increased to BID for 4-6 wks #Suprapubic/chronic abdominal discomfort Patient w/ negative workup in past including CTAP, Abdomen CTA, KUB, EGD/CN. Suspected pain multifactoral - gastroparesis/functional abdominal pain/ GERD/constipation Did get trigger point injection 09/21 w/ some improvement - f/u outpatient Gastric emptying study (done while on reglan) consistent with gastroparesis - continued on Reglan QID Constipation - continue daily miralax, second dose or dulcolax prn Mental health: Fluoxetine - suspect increased anxiety contributing to abdominal pain HTN: ASA, Lisinopril HLD: statin Dispo: discharge to home today, pt requested home health arranged. Notes For Next Care Provider f/u with [facility] Medication Changes From Visit reglan QID started ativan refilled PPI increased to BID lantus increased to 20 units Admission HPI Per Admitting Provider Lana is a 69-year-old female with a Past medical history of poorly controlled type 1 diabetes last A1c 8.5%, chronic abdominal pain over several months, palpitations who presents with pseudohyponatremia, abdominal discomfort, and he was found to have a BSG greater than 400, anion gap acidosis and he was suspected to be in mild DKA. Patient has had intermittent chronic abdominal pain with hypoglycemia in the past, has an uninfected UA, has had multiple CTA/P scans in the preceding few months without acute finding and a nonacute abdomen on exam has been recommended for treatment of DKA. Abdominal CTA previously with diverticulosis without diverticulitis. No significant disease of the celiac axis, superior mesenteric, inferior mesenteric, and bilateral renal arteries was noted. D-dimer was elevated, chest CTA for PE was normal Lana is seen at the bedside. She has had chronic intermittent abdominal pain for many months. She feels that this is similar and mostly in her mid low abdomen/suprapubic region. She has been peeing a lot but has no difficulty voiding/urinating. Denies fever chills or sweats. She feels very dehydrated and has been peeing much more than normal. Has not missed any doses of her insulin. She reports that she has had a colonoscopy and EGD and did not find a cause of her discomfort back in December just had some inflammation. Been hospitalized and had several scans for abdominal pain, expressed some frustration that has not found a cause of her discomfort. She does not think that she has been on Reglan in the past. Has had some intermittent improvement with muscle relaxants in the past.At last discharge she was referred to pain management for trigger point injections. Medical History: Reviewed Medications: Reviewed Surgical History: Reviewed Family history: Reviewed Allergies: Reviewed Social History: Reviewed Code Status: DNR/DNi, discussed w pt on admit Discharge Exam General: NAD, VS as above Resp: normal respiratory effort, no adventitious sounds CV: well-perfused, RRR Abd: soft nontender Extremities: Moves all extremities, no edema Neuro: A&O x3, Discharge Plan Discharge Items Patient Disposition: Home - Home Health Services Reason For Visit: HHS Discharge Diagnosis: HHS, abdominal pain Activity: Resume your previous activity Weightbearing: Full weightbearing Non-emergency contact: Primary Care Provider Call non-emergency contact if: you have any medication questions, your symptoms worsen, your pain is not controlled and your temperature is above 101 Follow-up/Referrals: Mark Carroll PA-C [Physician Insurance Collector] - (please call if you desire more trigger point injections - keep appointment in september ) Heather Heath PA-C [Primary Care Provider] - 10/09/24 1:20 pm (Arrival time 1:05) Diet: Carb Consistent or DM2 Addtl Attending Provider Instructions: Ms. Padilla, You were hospitalized after having and abdominal pain and significantly elevated blood sugar. Your blood sugar was treated with an insulin drip and have been decently controlled on short and long acting insulin. We also did a deeper dive into your abdominal pain. You had an EGD that showed a stricture that was dilated and your swallowing problems improved. The EGD also showed You had a gastric emptying study that showed delayed emptying consistent with gastroparesis which is a complication of diabetes. You were evaluated by therapy who agreed it is safe for you to go home. Medication changes: * Reglan - 5mg before meals to help with stomach emptying * Protonix - increase to twice a day for the next 4-6 weeks * Increase lantus to 20 units * Miralax - take this daily to prevent constipation. If you become constipated you can take it twice a day or purchase Dulcolax over the counter. * Continue ativan prn - I have a sent a few tabs in, but if you need further you should get this from your prior prescribed Recommendations: * Sleep with your head of the bed elevated - this will help with gastric reflux and prevent stomach acid from coming back up in your esophagus and causing pain * Smaller frequent meals - this will help with the delayed emptying and relieve pain * Poor mental health can cause abdominal pain - if you feel like your mental health is not controlled on your current regimen, please talk to you PCP about adjustments. Make sure you are taking time for yourself, getting fresh air. Consider meditation or journaling. * Avoid constipation as this can also cause constipation. Follow ups: * Please follow up with your PCP within the next week * Follow up with [facility] within one month - they have been notified of your hospital stay and will receive your records. They will contact you with an appointment * The information for pain management is above - if you would like to have further trigger point injections, you can call the number above. Activity: You can do normal everyday activities as your body allows. Take rest breaks if you feel tired. Do not overexert. Stop activity if you have pain, shortness of breath or feel dizzy. CONTACT YOUR PRIMARY CARE PROVIDER if you experience any of the following: Shortness of breath or difficulty breathing Fevers or chills Feeling tired with normal activity or experiencing dizziness or fainting Difficulty following your treatment plan, or difficulty taking medications CALL 911 OR GO TO THE EMERGENCY DEPARTMENT if you experience any of the following: Severe abdominal pain or nausea/vomiting Severe chest pain, or chest pain that radiates (moves) to your jaw or arm Sudden, severe shortness of breath or difficulty breathing Thank you for allowing us to participate in your care. Pending Studies at Discharge: No Stand-Alone Forms: My [facility], Smoking Cessation Medications and DC Order Prescriptions: New metoclopramide HCl 5 mg Tablet 5 mg PO ACHS 30 Days Qty: 30 0RF pantoprazole 40 mg Tablet,Delayed Release (Dr/Ec) 40 mg PO BID 30 Days Qty: 60 0RF Continued cholecalciferol (vitamin D3) 25 mcg (1,000 unit) capsule 25 mcg PO QAM Adult 50 Plus Probiotic 4 billion cell capsule 4,000 mmu cells PO PM levothyroxine [Euthyrox] 112 mcg tablet 112 mcg PO DAILYBB aspirin 81 mg Tablet,Delayed Release (Dr/Ec) 81 mg PO QAM multivitamin with folic acid [Daily-Arleen (with folic acid)] 400 mcg Tablet 1 tab PO DAILY Qty: 1 0RF lisinopril 20 mg tablet 20 mg PO BID polyethylene glycol 3350 [Miralax] 17 gram/dose Powder 17 g PO DAILY PRN (Reason: Constipation) lorazepam 0.5 mg Tablet 0.5 mg PO Q6H PRN (Reason: anxiety) Qty: 12 0RF Rx Instructions: per pt she is out of medicatin insulin aspart U-100 [Novolog FlexPen U-100 Insulin] 100 unit/mL (3 mL) Insulin Pen 1 sliding scale dose subcut USEASDIRECTD MDD 25 unit Qty: 15 0RF Rx Instructions: -Goal BSG Range: Low 110_mg/dL, High 140_mg/dL --Correction Factor: 20_mg/dL/unit --Carbohydrate ratio = _12_ g/unit pravastatin 40 mg Tablet 40 mg PO HS dicyclomine 20 mg tablet 20 mg PO QID PRN (Reason: Abdominal Pain) hydroxyzine HCl 10 mg tablet 10 mg PO BID PRN (Reason: Anxiety) fluoxetine 20 mg capsule 60 mg PO DAILY Changed insulin glargine [Basaglar KwikPen U-100 Insulin] 100 unit/mL (3 mL) insulin pen 20 unit SUBCUT HS Qty: 0 0RF Rx Instructions: if having consecutive lows, decrease to 15 u until contact primary care office Discontinued pantoprazole 40 mg tablet,delayed release (DR/EC) 40 mg PO QAM Rx Instructions: hasnt been taking consistenly Discharge Orders: Discharge Order (Routine); Ordered 09/28/24 Ordered By: Sarah Lopez/Other Patient Handouts: GERD Lifestyle Changes, Diabetic Gastroparesis, ED GERD (Adult) Admission Data Admit Date/Time: 09/19/24 16:21 Attending Provider: Kole Rehman Admit Provider: Jose Dang Primary Care Provider: Heather Heath Other Providers: Jose Dang; Tiffani Horn; Nicola Edge; Charlie Lynn; Janay Vincent; Sarah Hammer; Shelby Mojica; Gay Grossman; Cameron Jesus; Missy Henley; Jessika Ivan; Mariann Marrero S; Maura Hodge; Martha Miller; Dunia Reyes; Lacey Armstrong; Adis Monte; Renny Calderon; Guillermina Mathur; Kojo Bright Jr; Lee Arriola; Bam Helton; Jaden Vargas; Jerry Pratt; Abby Garcia; Mehrdad Hoang I; Caity Calderon; Yunior Neville; Kole Nguyen Other Interventions: Discharge Summary Assessment (RN) Last Done: 09/28/24 11:43 Hospital Stay Data Consultations 09/19/24 15:11 ED Decision to Admit Stat 09/19/24 18:34 Consult Behavioral Health Liaison Routine 09/20/24 15:13 Consult Pain Management Routine 09/21/24 16:20 Consult Gastroenterology Routine 09/25/24 11:19 Consult Gastroenterology Routine Procedures Performed Operation Date: 09/26/24 16:30 Actual Procedures p EGD Biopsy Dilatation - Yunior Neville MD Diagnostic Imagining Performed Chest X-Ray 09/19/24 11:46 XR chest 1V portable CLINICAL HISTORY: Palpitations. COMPARISON STUDY: Chest radiograph July 29, 2024. FINDINGS: Lung volumes are normal. Lungs are clear. There is no pneumothorax or pleural effusion. Cardiac size is normal. Mediastinal contours are normal. There is no evidence for pulmonary edema. Several old right rib fractures are incidentally noted. IMPRESSION: No acute cardiopulmonary findings. No change in appearance of the chest. ACT 112: Negative or not required by law. Electronically signed by: Sixto Hernandez M.D. 09/19/2024 12:[address] 09/19/24 12:39 CT head/brain wo con CLINICAL HISTORY: difficulty ambulating. TECHNIQUE: Multiple axial CT images of the head were obtained without contrast. Sagittal and coronal reconstructions were done. A dose lowering technique was utilized adhering to the principles of ALARA. CT DOSE: 1052.79 mGy.cm COMPARISON: 09/22/2023 FINDINGS: No significant interval changes have occurred. Senescent atrophy and small vessel insufficiency is redemonstrated. There is no intra-axial or extra-axial fluid collection, hemorrhage, or mass. There is no midline shift. The bone windows are negative. IMPRESSION: Stable exam as described. No acute intracranial process identified. ACT 112: Negative or not required by law. The above report was generated using voice recognition software. It may contain grammatical, syntax or spelling errors. Electronically signed by: Marjorie Burnham M.D. 09/19/2024 2:02 PM Chest CTA 09/19/24 13:15 CT ANGIOGRAPHY OF THE CHEST, PULMONARY EMBOLUS PROTOCOL CLINICAL HISTORY: Shortness of breath. Tachycardia. Evaluate for pulmonary embolus. COMPARISON STUDY: Chest radiograph July 29, 2024. Chest radiograph performed earlier today. TECHNIQUE: Following IV administration of 120 mL of Optiray, helical axial desmond ges of the chest were obtained utilizing the pulmonary embolus protocol. Maximal intensity projections and sagittal and coronal reformats were viewed on an independent 3D workstation. IV contrast was administered without complication. Automated exposure control was utilized for the study. A dose lowering technique was utilized adhering to the principles of ALARA. FINDINGS: No pulmonary emboli are identified. There is no thoracic aortic dissection. No enlarged axillary, mediastinal or hilar lymph nodes are present. There is mild emphysema. There is no consolidation to suggest pneumonia. No suspicious pulmonary nodules are present. There is mild wall thickening and mucus plugging within the lower lobes. Old right-sided rib fractures are incidentally noted. There are no acute rib fractures. There is a small hiatal hernia. Wall thickening of the distal esophagus is present. Old L1 compression fracture is incidentally noted. IMPRESSION: 1. No pulmonary emboli identified. 2. No acute intrathoracic findings. 3. Mild emphysema. 4. Small hiatal hernia. Distal esophageal wall thickening which may represent esophagitis. ACT 112: Negative or not required by law. Electronically signed by: Sixto Hernandez M.D. 09/19/2024 2:04 PM Renal Ultrasound 09/21/24 16:31 Clinical history: Urinary retention Technique: Renal sonography was performed Findings: The kidneys are of normal size and echogenicity. The right kidney measures 9.1 cm in length and the left kidney measures 9.2 cm in length. There is no hydronephrosis or visualized hydroureter. No definite renal calculus or mass is seen. The urinary bladder is decompressed, with a Rizvi catheter present. Impression: Unremarkable renal sonogram Electronically signed by Rojelio Hunt 09-21-2024 5:51 PM Chest X-Ray 09/24/24 13:47 INDICATION: Feels food is stuck in her throat. TECHNIQUE: Frontal radiograph of the chest. COMPARISON: Radiograph from 09/19/2024. FINDINGS: The cardiomediastinal silhouette and pulmonary vasculature appear within normal limits. No infiltrate, pleural effusion or pneumothorax. Chronic appearing right rib deformities. No acute osseous abnormality evident. No foreign body identified. IMPRESSION: No acute cardiopulmonary process. Electronically signed by Malcom Leong 09-24-2024 2:17 PM KUB X-Ray 09/25/24 09:22 KUB HISTORY: lower abd pain, eval stool burden COMPARISON STUDY: 07/31/2024 FINDINGS: There is moderate retained stool. No bowel obstruction seen. IMPRESSION: Moderate retained stool. ACT 112: Negative or not required by law. The above report was generated using voice recognition software. It may contain grammatical, syntax or spelling errors. Electronically signed by: Chucky Acevedo M.D. 09/25/2024 10:34 AM Gastric Emptying Nuclear Medicine 09/27/24 13:09 NM gastric emptying study CLINICAL HISTORY: abdominal pain, eval gastroparesis. TECHNIQUE: After the oral ingestion of the meal consisting of egg substitute labeled with 1.0 mCi technetium-99m sulfur colloid, toast, jam and water, sequential anterior and posterior images were obtained through 4 hours. Rersidual gastric activity was measured at several time points. COMPARISON: None FINDINGS: Uptake retention in the stomach at 1 hour is 75% normal, 54% at 2 hours normal, and 24% at 4 hours mildly greater than normal. IMPRESSION: Mildly abnormal retention of activity at 4 hours. There was 24% retention with normal being 10%. ACT 112: Negative or not required by law. The above report was generated using voice recognition software. It may contain grammatical, syntax or spelling errors. Electronically signed by: Chucky Acevedo M.D. 09/27/2024 2:51 PM Pending Results Patient Have Any Pending Studies at Discharge: No Discharge Instructions Given to Patient (Per Discharging Provider) Ms. Padilla, You were hospitalized after having and abdominal pain and significantly elevated blood sugar. Your blood sugar was treated with an insulin drip and have been decently controlled on short and long acting insulin. We also did a deeper dive into your abdominal pain. You had an EGD that showed a stricture that was dilated and your swallowing problems improved. The EGD also showed You had a gastric emptying study that showed delayed emptying consistent with gastroparesis which is a complication of diabetes. You were evaluated by therapy who agreed it is safe for you to go home. Medication changes: * Reglan - 5mg before meals to help with stomach emptying * Protonix - increase to twice a day for the next 4-6 weeks * Increase lantus to 20 units * Miralax - take this daily to prevent constipation. If you become constipated you can take it twice a day or purchase Dulcolax over the counter. * Continue ativan prn - I have a sent a few tabs in, but if you need further you should get this from your prior prescribed Recommendations: * Sleep with your head of the bed elevated - this will help with gastric reflux and prevent stomach acid from coming back up in your esophagus and causing pain * Smaller frequent meals - this will help with the delayed emptying and relieve pain * Poor mental health can cause abdominal pain - if you feel like your mental health is not controlled on your current regimen, please talk to you PCP about adjustments. Make sure you are taking time for yourself, getting fresh air. Consider meditation or journaling. * Avoid constipation as this can also cause constipation. Follow ups: * Please follow up with your PCP within the next week * Follow up with [facility] within one month - they have been notified of your hospital stay and will receive your records. They will contact you with an appointment * The information for pain management is above - if you would like to have further trigger point injections, you can call the number above. Activity: You can do normal everyday activities as your body allows. Take rest breaks if you feel tired. Do not overexert. Stop activity if you have pain, shortness of breath or feel dizzy. CONTACT YOUR PRIMARY CARE PROVIDER if you experience any of the following: Shortness of breath or difficulty breathing Fevers or chills Feeling tired with normal activity or experiencing dizziness or fainting Difficulty following your treatment plan, or difficulty taking medications CALL 911 OR GO TO THE EMERGENCY DEPARTMENT if you experience any of the following: Severe abdominal pain or nausea/vomiting Severe chest pain, or chest pain that radiates (moves) to your jaw or arm Sudden, severe shortness of breath or difficulty breathing Thank you for allowing us to participate in your care. Total Time Total Time Spent Total Time Spent (In Minutes): Time spent day of discharge 40 minutes including direct patient care, medication reconciliation, documentation, review of labs and images, and coordination of care. discussed with CM Coding Level of Care Code 16167 INP/OBS DISCH >30 MIN Diagnoses Insulin-requiring or dependent type II diabetes mellitus E11.9; Z79.4 Major depressive disorder, recurrent episode, severe with anxious distress F33.2 Depression F32.A Depression Type: unspecified
== END 2024-09-28 14:00 | disposition home health service (06) | DRG 638 ==
LOC: SUATTDRO → ED 11:27 → SUATTDRO 16:21 → 2S 16:21 → 3W 09-22 17:21